=== PATIENT | female | born 1960 | race Caucasian/White ===

== ENCOUNTER 2022-04-04 08:07 | Inpatient (IN) ==
--- NOTE | 2022-04-04 08:46 | Emergency Department Note ---
Impression & Plan Acute hypoxemic respiratory failure, Pulmonary edema, Sepsis, Encephalopathy, Hypomagnesemia, Hypokalemia ED Provider Note NAME: CARLOS GALDAMEZ AGE: 61 SEX: F : 1960 ARRIVES VIA: Ambulance INFORMANT: Patient, EMS personnel ED PROVIDER(S): Eric Bear DO CHIEF COMPLAINT: Difficulty breathing HPI: The patient is a 61-year-old female who presented to the emergency department for an evaluation of difficulty breathing. The patient has no medical history but it appears that she does not see a provider. She is not seen a doctor in 30 years. History was significantly impaired secondary to the patient's difficulty breathing and respiratory distress. The patient denies having any chest pain. She does complain of lower extremity swelling and drainage from her legs. She has ulcerations all over her body. She was found to have a high blood sugar. She did receive a fluid bolus by the EMS personnel prior to arrival but this was stopped upon arrival to the emergency department. The patient states she has no medical history and takes no medications. The patient denies having any fever. She denies having any hemoptysis. She does complain of severe difficulty breathing especially with lying flat. ROS: See above HPI for pertinent positives & negatives. A total of 10 systems reviewed and were otherwise negative. PAST MEDICAL HISTORY: See Below PAST SURGICAL HISTORY: See Below FAMILY HISTORY: See Below SOCIAL HISTORY: See Below HOME MEDICATIONS: See Below ALLERGIES: See Below VITALS: See Below PHYSICAL EXAMINATION: GENERAL: The patient is awake and alert. She appears somewhat anxious. EYES: The conjunctivae are clear. The pupils are round and reactive. EARS, NOSE, MOUTH AND THROAT: The nose is without any evidence of any deformity. NECK: The neck is nontender and supple. RESPIRATORY: Diminished breath sounds are noted throughout. There were rales noted in all lung ley. CARDIOVASCULAR: Tachycardic and regular heart sounds were noted auscultation. There is no definite murmur. GASTROINTESTINAL: The abdomen was distended. There is no guarding rigidity. MUSCULOSKELETAL/EXTREMITIES: There is no evidence of gross deformity full range of motion is noted in the hips and shoulders. SKIN: Pedal edema was noted bilaterally. There is skin breakdown noted on the lower extremities as well as on the right breast. This appears to be around the nipple. No definite mass could be palpated but the patient states she has not had a mammogram. NEUROLOGIC: Patient is awake alert and oriented x3. MEDICAL DECISION MAKING: The patient is a 61-year-old female who presented to the emergency department for an evaluation of difficulty breathing. The patient had altered mental status and difficulty breathing which had been ongoing and worsening. The patient does not have any medical problems however this is likely because she does not go to a physician. She does not take any chronic medications. The patient was found to be significantly hypoxic and having shortness of breath. She was placed on escalating amounts of supplemental oxygen until she required BiPAP. She started to have hypotension. White blood cell count was elevated and chest x-ray was consistent with pulmonary edema but an infectious process could look similar so the patient was covered with IV antibiotics. She was reevaluated multiple times. I discussed her condition with the on-call [facility] hospitalist. A central line was placed. We were preparing to intubate the patient however she started to improve with her status after Lozano catheter was placed. The patient was felt to be a good candidate for inpatient management. She was also evaluated by the salesperson flying squad while she was in the emergency department. She has multiple areas of ulcerations of her lower extremities. It is unclear if these are from trauma or just from sedentary situation. She also has an ulceration under her right breast. This is consistent with pressure ulceration however it could be consistent with some underlying pathology. This was discussed with the admitting team as well. Triage Nursing notes reviewed. Prior medical records reviewed Vital Signs: reviewed and remarkable for hypotension. Tachycardia. Differential diagnosis: Reactive airway disease, pneumonia, pneumothorax, COPD, CHF, infections, cardiac ischemia, pulmonary embolism, musculoskeletal, gastrointestinal, as well as other pathologies. ER treatment provided: See below Diagnostics interpreted by me: ECG: EKG was obtained in the emergency department. My interpretation is sinus tachycardia 120 bpm. There were no PVCs noted. Poor R wave progression was noted. No previous tracing was available. Cardiac Monitoring: An order was placed for continuous cardiac monitoring. The monitor shows a rate of 94 bpm with sinus tachycardia. Laboratory studies: As stated above and show below. Imaging studies: See below Consultation(s): I discussed this case with Dr. Matute The patient was evaluated in room A1 by Dr. Gaytan ED COURSE: Procedures: Central Venous Catheter Indication: Pulmonary edema Catheter type: Triple-lumen Location: Left internal jugular Verbal consent was obtained after the risks and benefits were explained, including but not limited to pneumothorax, hemothorax, vessel injury, bleeding, scarring, infection, pain, and bone/joint/nerve damage. At this time, the risks of the procedure are less than the risks of NOT performing the procedure. A time out was taken and the correct patient and site identified. The patient was placed in the supine position and the skin was prepped in the standard fashion with chlorhexidine and full sterile drapes applied. The proper landmarks were identified with ultrasound, anesthetized with 1% lidocaine without epinephrine, and the needle was inserted through the skin in the standard fashion. The needle was carefully advanced into blood vessel lumen under ultrasound guidance. The guidewire was placed uneventfully. The vessel is dilated and the catheter was placed. It was sutured into position. There was good blood return from all ports. The patient tolerated the procedure well and there were no complications. Post procedure x-ray was normal. Critical Care: I have personally spent greater than 55 minutes of critical care time in the direct management of this patient. This includes bedside care, interpretation of diagnostic studies, and testing, discussion with consultants, patient, and family members, and other required patient management activities. This 55 minutes is in excess of all separately billable procedures. Past Med/Surg History Social History Smoking Status: Never smoker Allergies Allergies Allergy/AdvReac Type Severity Reaction Status Date / Time No Known Allergies Allergy Unverified 04/04/22 09:54 Home Meds Home Medications Medication Instructions Recorded Confirmed No Known Home Medications 04/04/22 04/04/22 Results & Data (ED) Vital Signs Vital Signs - 24 hr 04/04/22 08:27 04/04/22 09:06 04/04/22 08:22 Temperature 37.4 C Temperature Source Oral Pulse Rate 119 H 111 H 119 H Pulse Rate from SpO2 Sensor 120 H Respiratory Rate 24 33 H 33 H Respiratory Effort / Characteristics Non-Labored Spontaneous Spontaneous Labored Respiratory Depth Normal Respiratory Pattern Regular Tachypnea Blood Pressure 152/93 H Blood Pressure Mean 112 Pulse Oximetry 84 L 95 94 Oxygen Delivery Method Room Air Fraction of Inspired Oxygen 30 Sepsis Recent Fever Within 48 Hours No Sepsis New/Unexplained Change in Mental Status N/A Sepsis Action Taken by Nursing Physician Notified 04/04/22 08:24 04/04/22 08:24 04/04/22 08:30 Temperature Temperature Source Pulse Rate 120 H 119 H Pulse Rate from SpO2 Sensor 119 H 119 H Respiratory Rate 36 H 29 H Respiratory Effort / Characteristics Respiratory Depth Respiratory Pattern Blood Pressure 152/93 H Blood Pressure Mean 112 Pulse Oximetry 94 94 Oxygen Delivery Method Fraction of Inspired Oxygen Sepsis Recent Fever Within 48 Hours Sepsis New/Unexplained Change in Mental Status Sepsis Action Taken by Nursing 04/04/22 09:00 04/04/22 09:30 04/04/22 09:45 Temperature Temperature Source Pulse Rate 113 H 102 H 100 H Pulse Rate from SpO2 Sensor 112 H 102 H 99 H Respiratory Rate 31 H 30 H 29 H Respiratory Effort / Characteristics Respiratory Depth Respiratory Pattern Blood Pressure 89/49 L Blood Pressure Mean 62 Pulse Oximetry 91 96 96 Oxygen Delivery Method BiPAP Fraction of Inspired Oxygen Sepsis Recent Fever Within 48 Hours Sepsis New/Unexplained Change in Mental Status Sepsis Action Taken by Nursing 04/04/22 10:00 04/04/22 10:03 04/04/22 10:03 Temperature Temperature Source Pulse Rate 97 H 96 H Pulse Rate from SpO2 Sensor 93 H 62 Respiratory Rate 25 H 33 H Respiratory Effort / Characteristics Respiratory Depth Respiratory Pattern Blood Pressure Blood Pressure Mean 53 Pulse Oximetry 94 96 Oxygen Delivery Method BiPAP BiPAP Fraction of Inspired Oxygen Sepsis Recent Fever Within 48 Hours Sepsis New/Unexplained Change in Mental Status Sepsis Action Taken by Nursing 04/04/22 10:06 04/04/22 10:06 04/04/22 10:10 Temperature Temperature Source Pulse Rate 98 H 99 H Pulse Rate from SpO2 Sensor 95 H 99 H Respiratory Rate 32 H 19 Respiratory Effort / Characteristics Respiratory Depth Respiratory Pattern Blood Pressure 87/53 L Blood Pressure Mean 64 Pulse Oximetry 95 95 Oxygen Delivery Method Fraction of Inspired Oxygen Sepsis Recent Fever Within 48 Hours Sepsis New/Unexplained Change in Mental Status Sepsis Action Taken by Nursing 04/04/22 10:10 04/04/22 10:15 04/04/22 10:15 Temperature Temperature Source Pulse Rate 96 H Pulse Rate from SpO2 Sensor 96 H Respiratory Rate 28 H Respiratory Effort / Characteristics Respiratory Depth Respiratory Pattern Blood Pressure 81/49 L 85/53 L Blood Pressure Mean 59 63 Pulse Oximetry 96 Oxygen Delivery Method BiPAP Fraction of Inspired Oxygen Sepsis Recent Fever Within 48 Hours Sepsis New/Unexplained Change in Mental Status Sepsis Action Taken by Nursing 04/04/22 10:30 04/04/22 10:31 04/04/22 10:32 Temperature Temperature Source Pulse Rate 90 99 H Pulse Rate from SpO2 Sensor 83 97 H Respiratory Rate 21 23 Respiratory Effort / Characteristics Respiratory Depth Respiratory Pattern Blood Pressure 83/55 L Blood Pressure Mean 64 Pulse Oximetry 94 96 Oxygen Delivery Method BiPAP Fraction of Inspired Oxygen Sepsis Recent Fever Within 48 Hours Sepsis New/Unexplained Change in Mental Status Sepsis Action Taken by Nursing 04/04/22 10:45 04/04/22 10:53 04/04/22 10:53 Temperature Temperature Source Pulse Rate 94 H 97 H Pulse Rate from SpO2 Sensor 94 H 90 Respiratory Rate 15 Respiratory Effort / Characteristics Respiratory Depth Respiratory Pattern Blood Pressure 96/54 L Blood Pressure Mean 68 Pulse Oximetry 94 97 Oxygen Delivery Method Fraction of Inspired Oxygen Sepsis Recent Fever Within 48 Hours Sepsis New/Unexplained Change in Mental Status Sepsis Action Taken by Nursing 04/04/22 11:00 04/04/22 11:02 04/04/22 11:02 Temperature Temperature Source Pulse Rate 100 H 99 H Pulse Rate from SpO2 Sensor 100 H 84 Respiratory Rate 26 H 23 Respiratory Effort / Characteristics Respiratory Depth Respiratory Pattern Blood Pressure 105/66 Blood Pressure Mean 79 Pulse Oximetry 98 100 Oxygen Delivery Method Fraction of Inspired Oxygen Sepsis Recent Fever Within 48 Hours Sepsis New/Unexplained Change in Mental Status Sepsis Action Taken by [facility] Medications Current Medication List: was personally reviewed by me Laboratory Data Attestation: I reviewed the patient's lab results. Result diagrams: 04/04/22 08:32 04/04/22 08:32 Lab Results 04/04/22 04/04/22 04/04/22 Range/Units 08:32 08:32 08:32 WBC 23.61 H (4.8-10.8) K/ul RBC 3.84 L (3.93-5.22) M/uL Hgb 12.2 (12.0-16.0) g/dl Hct 33.6 L (34.1-44.9) % MCV 87.5 (80.0-100.0) fL MCH 31.8 (25.0-34.0) pg MCHC 36.3 H (32.0-36.0) g/dL RDW Std Deviation 40.7 (36.4-46.3) fL RDW Coeff of Chintan 12.8 (11.5-14.5) % Plt Count 316 (130-400) K/uL MPV 9.4 (9.4-12.3) fL Immature Gran % (Auto) 1.0 % Neut % (Auto) 94.5 % Lymph % (Auto) 2.5 % [place] % (Auto) 1.5 % Eos % (Auto) 0.1 % Baso % (Auto) 0.4 % Neut # (Auto) 22.30 H (1.4-6.5) K/uL Lymph # (Auto) 0.60 L (1.2-3.4) K/uL [place] # (Auto) 0.35 (0.24-0.82) K/uL Eos # (Auto) 0.03 (0-0.50) K/uL Baso # (Auto) 0.09 (0-0.2) K/uL Immature Gran # (Auto) 0.24 H (0.00-0.02) K/uL PT 12.2 H (9.0-12.0) Seconds INR 1.2 H (0.9-1.1) APTT 25.9 (21.0-31.0) Seconds PTT Ratio 0.9 VBG pH (7.36-7.41) VBG pCO2 (38-50) mmHg VBG pO2 mmHg VBG HCO3 mmol/L VBG O2 Saturation % VBG Base Excess mEq/L Sodium 134 L (136-145) mmol/L Potassium 2.7 L (3.5-5.1) mmol/L Chloride 95 L (98-107) mmol/L Carbon Dioxide 29 (21-32) mmol/L Anion Gap 10 (3-11) BUN 7 (6-23) mg/dl Creatinine 0.51 L (0.6-1.2) mg/dl Est Cr Clr Drug Dosing 157.3 ml/min Est GFR ( Amer) 120.3 ml/min Est GFR (Non-Af Amer) 103.8 ml/min BUN/Creatinine Ratio 13.7 (10-20) Glucose 242 H (70-99(Fasting)) mg/dl Lactate (0.4-2.0) mmol/L Calcium 8.0 L (8.5-10.1) mg/dl Magnesium 1.6 L (1.7-2.4) mg/dl Total Bilirubin 0.7 (0.2-1.0) mg/dl Direct Bilirubin 0.2 (0-0.2) mg/dl AST 19 (13-39) U/L ALT 13 (7-52) U/L Alkaline Phosphatase 164 H (34-104) U/L Total Creatine Kinase (26-192) U/L Troponin I High Sens 32.0 H (0-14) pg/ml B-Natriuretic Peptide (0-100) pg/ml Total Protein 7.0 (6.0-8.3) gm/dl Albumin 2.7 L (3.4-5.0) gm/dl Lipase (11-82) U/L Procalcitonin (0-0.5) ng/ml Urine Color Urine Appearance (Clear) Urine pH (4.5-7.5) Ur Specific [place] (1.000-1.030) Urine Protein (Negative) Urine Glucose (UA) (Negative) Urine Ketones (Negative) Urine Blood (Negative) Urine Nitrite (Negative) Urine Bilirubin (Negative) Urine Urobilinogen (Negative) Ur Leukocyte Esterase (Negative) Urine WBC (Auto) (0-5) /hpf Urine RBC (Auto) (0-4) /hpf U Hyaline Cast (Auto) (0-5) /lpf U Epithel Cells (Auto) (0-5) /lpf Urine Bacteria (Auto) (Negative) SARS-CoV-2 (PCR) (Negative) Influenza Type A (PCR) (Neg) Influenza Type B (PCR) (Neg) RSV (RT-PCR) (Neg) Blood Type Antibody Screen 04/04/22 04/04/22 04/04/22 Range/Units 08:32 08:32 08:32 WBC (4.8-10.8) K/ul RBC (3.93-5.22) M/uL Hgb (12.0-16.0) g/dl Hct (34.1-44.9) % MCV (80.0-100.0) fL MCH (25.0-34.0) pg MCHC (32.0-36.0) g/dL RDW Std Deviation (36.4-46.3) fL RDW Coeff of Chintan (11.5-14.5) % Plt Count (130-400) K/uL MPV (9.4-12.3) fL Immature Gran % (Auto) % Neut % (Auto) % Lymph % (Auto) % [place] % (Auto) % Eos % (Auto) % Baso % (Auto) % Neut # (Auto) (1.4-6.5) K/uL Lymph # (Auto) (1.2-3.4) K/uL [place] # (Auto) (0.24-0.82) K/uL Eos # (Auto) (0-0.50) K/uL Baso # (Auto) (0-0.2) K/uL Immature Gran # (Auto) (0.00-0.02) K/uL PT (9.0-12.0) Seconds INR (0.9-1.1) APTT (21.0-31.0) Seconds PTT Ratio VBG pH 7.48 H (7.36-7.41) VBG pCO2 42 (38-50) mmHg VBG pO2 39 mmHg VBG HCO3 31 mmol/L VBG O2 Saturation 69.3 % VBG Base Excess 7.0 mEq/L Sodium (136-145) mmol/L Potassium (3.5-5.1) mmol/L Chloride (98-107) mmol/L Carbon Dioxide (21-32) mmol/L Anion Gap (3-11) BUN (6-23) mg/dl Creatinine (0.6-1.2) mg/dl Est Cr Clr Drug Dosing ml/min Est GFR ( Amer) ml/min Est GFR (Non-Af Amer) ml/min BUN/Creatinine Ratio (10-20) Glucose (70-99(Fasting)) mg/dl Lactate 1.6 (0.4-2.0) mmol/L Calcium (8.5-10.1) mg/dl Magnesium (1.7-2.4) mg/dl Total Bilirubin (0.2-1.0) mg/dl Direct Bilirubin (0-0.2) mg/dl AST (13-39) U/L ALT (7-52) U/L Alkaline Phosphatase (34-104) U/L Total Creatine Kinase (26-192) U/L Troponin I High Sens (0-14) pg/ml B-Natriuretic Peptide (0-100) pg/ml Total Protein (6.0-8.3) gm/dl Albumin (3.4-5.0) gm/dl Lipase (11-82) U/L Procalcitonin 1.87 H (0-0.5) ng/ml Urine Color Urine Appearance (Clear) Urine pH (4.5-7.5) Ur Specific [place] (1.000-1.030) Urine Protein (Negative) Urine Glucose (UA) (Negative) Urine Ketones (Negative) Urine Blood (Negative) Urine Nitrite (Negative) Urine Bilirubin (Negative) Urine Urobilinogen (Negative) Ur Leukocyte Esterase (Negative) Urine WBC (Auto) (0-5) /hpf Urine RBC (Auto) (0-4) /hpf U Hyaline Cast (Auto) (0-5) /lpf U Epithel Cells (Auto) (0-5) /lpf Urine Bacteria (Auto) (Negative) SARS-CoV-2 (PCR) (Negative) Influenza Type A (PCR) (Neg) Influenza Type B (PCR) (Neg) RSV (RT-PCR) (Neg) Blood Type Antibody Screen 04/04/22 04/04/22 04/04/22 Range/Units 08:32 08:32 08:33 WBC (4.8-10.8) K/ul RBC (3.93-5.22) M/uL Hgb (12.0-16.0) g/dl Hct (34.1-44.9) % MCV (80.0-100.0) fL MCH (25.0-34.0) pg MCHC (32.0-36.0) g/dL RDW Std Deviation (36.4-46.3) fL RDW Coeff of Chintan (11.5-14.5) % Plt Count (130-400) K/uL MPV (9.4-12.3) fL Immature Gran % (Auto) % Neut % (Auto) % Lymph % (Auto) % [place] % (Auto) % Eos % (Auto) % Baso % (Auto) % Neut # (Auto) (1.4-6.5) K/uL Lymph # (Auto) (1.2-3.4) K/uL [place] # (Auto) (0.24-0.82) K/uL Eos # (Auto) (0-0.50) K/uL Baso # (Auto) (0-0.2) K/uL Immature Gran # (Auto) (0.00-0.02) K/uL PT (9.0-12.0) Seconds INR (0.9-1.1) APTT (21.0-31.0) Seconds PTT Ratio VBG pH (7.36-7.41) VBG pCO2 (38-50) mmHg VBG pO2 mmHg VBG HCO3 mmol/L VBG O2 Saturation % VBG Base Excess mEq/L Sodium (136-145) mmol/L Potassium (3.5-5.1) mmol/L Chloride (98-107) mmol/L Carbon Dioxide (21-32) mmol/L Anion Gap (3-11) BUN (6-23) mg/dl Creatinine (0.6-1.2) mg/dl Est Cr Clr Drug Dosing ml/min Est GFR ( Amer) ml/min Est GFR (Non-Af Amer) ml/min BUN/Creatinine Ratio (10-20) Glucose (70-99(Fasting)) mg/dl Lactate (0.4-2.0) mmol/L Calcium (8.5-10.1) mg/dl Magnesium (1.7-2.4) mg/dl Total Bilirubin (0.2-1.0) mg/dl Direct Bilirubin (0-0.2) mg/dl AST (13-39) U/L ALT (7-52) U/L Alkaline Phosphatase (34-104) U/L Total Creatine Kinase 61 (26-192) U/L Troponin I High Sens (0-14) pg/ml B-Natriuretic Peptide (0-100) pg/ml Total Protein (6.0-8.3) gm/dl Albumin (3.4-5.0) gm/dl Lipase (11-82) U/L Procalcitonin (0-0.5) ng/ml Urine Color Urine Appearance (Clear) Urine pH (4.5-7.5) Ur Specific [place] (1.000-1.030) Urine Protein (Negative) Urine Glucose (UA) (Negative) Urine Ketones (Negative) Urine Blood (Negative) Urine Nitrite (Negative) Urine Bilirubin (Negative) Urine Urobilinogen (Negative) Ur Leukocyte Esterase (Negative) Urine WBC (Auto) (0-5) /hpf Urine RBC (Auto) (0-4) /hpf U Hyaline Cast (Auto) (0-5) /lpf U Epithel Cells (Auto) (0-5) /lpf Urine Bacteria (Auto) (Negative) SARS-CoV-2 (PCR) NEGATIVE (Negative) Influenza Type A (PCR) Negative (Neg) Influenza Type B (PCR) Negative (Neg) RSV (RT-PCR) Negative (Neg) Blood Type O Positive Antibody Screen NEGATIVE 04/04/22 04/04/22 04/04/22 Range/Units 08:57 09:32 10:17 WBC (4.8-10.8) K/ul RBC (3.93-5.22) M/uL Hgb (12.0-16.0) g/dl Hct (34.1-44.9) % MCV (80.0-100.0) fL MCH (25.0-34.0) pg MCHC (32.0-36.0) g/dL RDW Std Deviation (36.4-46.3) fL RDW Coeff of Chintan (11.5-14.5) % Plt Count (130-400) K/uL MPV (9.4-12.3) fL Immature Gran % (Auto) % Neut % (Auto) % Lymph % (Auto) % [place] % (Auto) % Eos % (Auto) % Baso % (Auto) % Neut # (Auto) (1.4-6.5) K/uL Lymph # (Auto) (1.2-3.4) K/uL [place] # (Auto) (0.24-0.82) K/uL Eos # (Auto) (0-0.50) K/uL Baso # (Auto) (0-0.2) K/uL Immature Gran # (Auto) (0.00-0.02) K/uL PT (9.0-12.0) Seconds INR (0.9-1.1) APTT (21.0-31.0) Seconds PTT Ratio VBG pH (7.36-7.41) VBG pCO2 (38-50) mmHg VBG pO2 mmHg VBG HCO3 mmol/L VBG O2 Saturation % VBG Base Excess mEq/L Sodium (136-145) mmol/L Potassium (3.5-5.1) mmol/L Chloride (98-107) mmol/L Carbon Dioxide (21-32) mmol/L Anion Gap (3-11) BUN (6-23) mg/dl Creatinine (0.6-1.2) mg/dl Est Cr Clr Drug Dosing ml/min Est GFR ( Amer) ml/min Est GFR (Non-Af Amer) ml/min BUN/Creatinine Ratio (10-20) Glucose (70-99(Fasting)) mg/dl Lactate (0.4-2.0) mmol/L Calcium (8.5-10.1) mg/dl Magnesium (1.7-2.4) mg/dl Total Bilirubin (0.2-1.0) mg/dl Direct Bilirubin (0-0.2) mg/dl AST (13-39) U/L ALT (7-52) U/L Alkaline Phosphatase (34-104) U/L Total Creatine Kinase (26-192) U/L Troponin I High Sens (0-14) pg/ml B-Natriuretic Peptide 766 H (0-100) pg/ml Total Protein (6.0-8.3) gm/dl Albumin (3.4-5.0) gm/dl Lipase 5 L (11-82) U/L Procalcitonin (0-0.5) ng/ml Urine Color Yellow Urine Appearance Clear (Clear) Urine pH 5.5 (4.5-7.5) Ur Specific [place] 1.012 (1.000-1.030) Urine Protein Trace H (Negative) Urine Glucose (UA) Negative (Negative) Urine Ketones Trace H (Negative) Urine Blood Negative (Negative) Urine Nitrite Negative (Negative) Urine Bilirubin Negative (Negative) Urine Urobilinogen Negative (Negative) Ur Leukocyte Esterase Negative (Negative) Urine WBC (Auto) 1-5 (0-5) /hpf Urine RBC (Auto) 0-4 (0-4) /hpf U Hyaline Cast (Auto) 1-5 (0-5) /lpf U Epithel Cells (Auto) 20-30 H (0-5) /lpf Urine Bacteria (Auto) Negative (Negative) SARS-CoV-2 (PCR) (Negative) Influenza Type A (PCR) (Neg) Influenza Type B (PCR) (Neg) RSV (RT-PCR) (Neg) Blood Type Antibody Screen Administered Medications Discontinued Medications Piperacillin Sod/Tazobactam Sod (Zosyn) 4.5 gm in 120 mls @ 240 mls/hr IV NOW ONE Stop: 04/04/22 09:35 Last Infusion: 04/04/22 11:33 Dose: 0 mls/hr Documented By: Admin: 04/04/22 09:58 Dose: 240 mls/hr Documented By: ED Magnesium Sulfate/Dextrose (Magnesium Sulfate / D5w) 1 gm in 100 mls @ 100 mls/hr IV NOW STA Stop: 04/04/22 10:34 Last Infusion: 04/04/22 11:33 Dose: 0 mls/hr Documented By: Infusion: 04/04/22 11:32 Dose: 0 mls/hr Documented By: Admin: 04/04/22 09:58 Dose: 100 mls/hr Documented By: ED Potassium Chloride (K Terry / Wtr) 10 meq in 100 mls @ 100 mls/hr IV Q1H ERAN; Protocol Stop: 04/04/22 11:44 Last Admin: 04/04/22 11:38 Dose: 100 mls/hr Documented By: Infusion: 04/04/22 11:33 Dose: 0 mls/hr Documented By: Admin: 04/04/22 10:12 Dose: 100 mls/hr Documented By: ED Vancomycin HCl 2,750 mg/ (Sodium Chloride) 555 mls @ 200 mls/hr IV NOW ONE Stop: 04/04/22 14:02 Last Admin: 04/04/22 11:34 Dose: 200 mls/hr Documented By: KT Sodium Chloride (Nss) 500 mls @ 999 mls/hr IV .Q31M ONE Stop: 04/04/22 11:52 Last Infusion: 04/04/22 12:10 Dose: 0 mls/hr Documented By: Admin: 04/04/22 11:34 Dose: 999 mls/hr Documented By: KT Ioversol (Optiray 320 500ml) 109 ml IV ONCE ONE Stop: 04/04/22 12:37 Last Admin: 04/04/22 12:37 Dose: 109 ml Documented By: EDK Imaging Data Radiologist's Impression: Chest X-Ray 04/04/22 08:21 XR chest 1V portable CLINICAL HISTORY: Sepsis. COMPARISON STUDY: No previous studies for comparison. FINDINGS: Lung volumes are mildly diminished. No pneumothorax or pleural effusion is identified. Diffuse interstitial thickening is noted. Several bilateral airspace opacities are predominantly linear in configuration. Note is made of cardiomegaly. Right hilar prominence is present. IMPRESSION: 1. Diffuse interstitial thickening. This favors pulmonary edema however an infectious process could appear similar. Radiographic follow-up is recommended. 2. Cardiomegaly. Right hilar enlargement. This may be due to dilated pulmonary vessels however can be assessed on follow-up radiographs to exclude other mimi ologies such as lymphadenopathy. ACT 112: Negative or not required by law. Electronically signed by: Cruz Berman M.D. 04/04/2022 8:49 AM Abdomen/Pelvis CT 04/04/22 10:27 CT OF THE ABDOMEN AND PELVIS WITH CONTRAST CLINICAL HISTORY: Sepsis. COMPARISON STUDY: None. TECHNIQUE: Following IV administration of Optiray, axial images of the abdomen and pelvis were obtained from the lung bases to the proximal femurs. Images were reviewed in the axial, sagittal, and coronal planes. IV contrast was administered without complication. Automated exposure control was utilized for the study. A dose lowering technique was utilized adhering to the principles of ALARA. FINDINGS: Please note that the chest CT will be reported separately. No pneumatosis, free air or portal venous gas is present. This study is moderately compromised by motion artifact as well as artifact from body wall contacting the gantry. Trace perihepatic ascites is noted. There is anasarca. No fluid collection is identified within the abdomen or pelvis to suggest an abscess. The re is suspected nodularity of the liver surface. Liver is enlarged. No hepatic lesions are identified on this exam. There is no biliary or pancreatic ductal dilatation. Spleen, adrenal glands, kidneys and pancreas are grossly unremarkable. There is no hydronephrosis. There is a Lozano balloon within the bladder which is collapsed. Oral contrast within the colon and rectum may be from a previous imaging study. Moderate vascular calcification is present. Caliber of the abdominal aorta is normal. There are multiple calcified nonenlarged lymph nodes within the abdomen and pelvis. These are indeterminate. Left buttock subcutaneous fluid is partially imaged on this examination. No fluid collection is identified within visualized portions of the imaged pelvis. IMPRESSION: 1. Exam moderately compromised by artifact. 2. No bowel obstruction. No bowel wall thickening. 3. Anasarca. Trace ascites. No fluid collection to suggest abscess. 4. Hepatomegaly. Suspected nodularity of the liver surface raises the possibility of cirrhosis. 5. Cardiomegaly. Small right and trace left pleural effusion with probable pulmo nary edema. A superimposed infectious process cannot be excluded within the lungs. ACT 112: Negative or not required by law. Electronically signed by: Cruz Berman M.D. 04/04/2022 1:07 PM Chest CTA 04/04/22 10:27 CT ANGIOGRAPHY OF THE CHEST, PULMONARY EMBOLUS PROTOCOL CLINICAL HISTORY: Confusion. Possible sepsis. Evaluate for pulmonary embolus. COMPARISON STUDY: Chest radiograph performed earlier today. TECHNIQUE: Following IV administration of Optiray, helical axial images of the chest were obtained utilizing the pulmonary embolus protocol. Maximal intensity projections and sagittal and coronal reformats were viewed on an independent 3D workstation. IV contrast was administered without complication. Automated exposure control was utilized for the study. A dose lowering technique was utilized adhering to the principles of ALARA. FINDINGS: Left internal jugular central line is in place. Moderate cardiomegaly is noted. There is no thoracic aortic dissection. No pericardial effusion is present. No central or lobar pulmonary emboli are identified. This exam is significantly compromised by respiratory motion artifact. This compromises visualization of the segmental and subsegmental pulmonary arteries. Small right and trace left pleural effusions are present. There is no pneumothorax. Multifocal airspace opacities throughout the lungs are noted. The majority of these appear to represent atelectasis. However, an infectious process cannot be excluded. There may be mild pulmonary edema. No acute fracture within the bony thorax is noted although sensitivity for detection of nondisplaced fractures is diminished. The abdomen and pelvis CT will be reported separately. There is anasarca. Prominent mediastinal and bilateral hilar lymph nodes are present. IMPRESSION: 1. Exam significantly compromised by motion artifact. No pulmonary emboli identified although segmental and subsegmental pulmonary arteries suboptimally assessed. 2. Moderate cardiomegaly. Small right and trace left pleural effusions. Suspected pulmonary edema. 3. Multifocal airspace opacities throughout the lungs. The majority of these likely reflect atelectasis. However, multifocal pneumonia cannot be excluded. ACT 112: Negative or not required by law. Electronically signed by: Cruz Berman M.D. 04/04/2022 12:[address] 04/04/22 10:27 CT OF THE HEAD WITHOUT CONTRAST CLINICAL HISTORY: Altered mental status. COMPARISON STUDY: No previous studies for comparison. TECHNIQUE: Helical axial images of the head were obtained without IV contrast. A utomated exposure control was utilized for the study. A dose lowering technique was utilized adhering to the principles of ALARA. FINDINGS: This study is mildly compromised by motion artifact. No acute intracranial hemorrhage, midline shift or mass effect is present. The ventricular system is unremarkable. The basal cisterns are patent. No extra- axial collections are present. There are no findings to suggest acute dural sinus thrombosis or acute territorial infarct. No significant calvarial abnormalities are present. Visualized portions of the sinuses and mastoid air cells are clear. IMPRESSION: Exam moderately compromised by motion artifact. No acute intracranial findings. ACT 112: Negative or not required by law. Electronically signed by: Cruz Berman M.D. 04/04/2022 12:49 PM Discharge Plan Visit Data Chief Complaint: Infection ED Provider: Eric Bear Discharge Problem: Acute hypoxemic respiratory failure, Pulmonary edema, Sepsis, Encephalopathy, Hypomagnesemia, Hypokalemia Patient Disposition: Admitted As Inpatient Discharge Instructions Interventions: ED Discharge Assessment Last Done: 04/04/22 13:30
--- NOTE | 2022-04-04 08:50 | XRay Report ---
XR chest 1V portable CLINICAL HISTORY: Sepsis. COMPARISON STUDY: No previous studies for comparison. FINDINGS: Lung volumes are mildly diminished. No pneumothorax or pleural effusion is identified. Diff use interstitial thickening is noted. Several bilateral airspace opacities are predominantly linear i n configuration. Note is made of cardiomegaly. Right hilar prominence is present. IMPRESSION: 1. Diffuse interstitial thickening. This favors pulmonary edema however an infectious process could a ppear similar. Radiographic follow-up is recommended. 2. Cardiomegaly. Right hilar enlargement. This may be due to dilated pulmonary vessels however can be assessed on follow-up radiographs to exclude other etiologies such as lymphadenopathy. ACT 112: Negative or not required by law. Electronically signed by: Cruz Berman M.D. 04/04/2022 8:49 AM
[2022-04-04 09:03] LABS: Hematocrit (blood only) 33.6 % (34.1-44.9); Hemoglobin 12.2 g/dl (12.0-16.0); Mean Corpuscular Hemoglobin 31.8 pg (25.0-34.0); Mean Corpuscular Hgb Conc 36.3 g/dL (32.0-36.0); Mean Corpuscular Volume 87.5 fL (80.0-100.0); Mean Platelet Volume 9.4 fL (9.4-12.3); Platelet Count 316 K/uL (130-400); RDW Coefficient of Variation 12.8 % (11.5-14.5); RDW Standard Deviation 40.7 fL (36.4-46.3); Red Blood Count 3.84 M/uL (3.93-5.22); White Blood Count 23.61 K/ul (4.8-10.8)
[2022-04-04] MEDS ORDERED: PIPERACILLIN/TAZOBACTAM 4.5 GM/120 ML BAG IV ONE (09:06)
[2022-04-04 09:15] LABS: HCO3 VBG 31 mmol/L; Oxygen Saturation VBG 69.3 %; PCO2 VBG 42 mmHg (38-50); PO2 VBG 39 mmHg; pH VBG 7.48 (7.36-7.41)
[2022-04-04 09:17] LABS: INR 1.2 (0.9-1.1); Partial Thromboplastin Ratio 0.9; Partial Thromboplastin Time 25.9 Seconds (21.0-31.0); Prothrombin Time 12.2 Seconds (9.0-12.0)
[2022-04-04 09:18] LABS: Influenza A virus by PCR Negative (Neg); Influenza B virus by PCR Negative (Neg); RSV by PCR Negative (Neg); SARS CoV2 RNA(COVID-19)Cepheid NEGATIVE (Negative)
[2022-04-04 09:31] LABS: Albumin Level 2.7 gm/dl (3.4-5.0); BUN Creatinine Ratio 13.7 (10-20); Bilirubin Direct 0.2 mg/dl (0-0.2); Bilirubin,Total 0.7 mg/dl (0.2-1.0); Creatinine Clr Calc Pharmacy 157.3 ml/min; Est GFR (African American) 120.3 ml/min; Est GFR (Non-African American) 103.8 ml/min; Magnesium 1.6 mg/dl (1.7-2.4); Potassium 2.7 mmol/L (3.5-5.1)
[2022-04-04] MEDS ORDERED: MAGNESIUM SULFATE / D5W 1 GM/100 ML BAG IV STA (09:35)
[2022-04-04 09:44] LABS: Basophils # (auto) 0.09 K/uL (0-0.2); Basophils % (auto) 0.4 %; Eosinophils # (auto) 0.03 K/uL (0-0.50); Eosinophils % (auto) 0.1 %; Immature Granulocytes # (auto) 0.24 K/uL (0.00-0.02); Lymphocytes % (auto) 2.5 %; Monocytes # (auto) 0.35 K/uL (0.24-0.82); Monocytes % (auto) 1.5 %; Neutrophils % (auto) 94.5 %
[2022-04-04] MEDS: POTASSIUM CHLORIDE / WTR 10 MEQ/100 ML PLCT IV SCH ×2 (10:12→11:38)
[2022-04-04 10:47] LABS: Appearance Urine Clear (Clear); Bacteria Urine Automated Negative (Negative); Bilirubin Urine Negative (Negative); Blood Urine Negative (Negative); Color Urine Yellow; Epithelial Cell Urine Auto 20-30 /lpf (0-5); Glucose Urine UA Negative (Negative); Ketones Urine Trace (Negative); Leukocyte Esterase Urine Negative (Negative); Nitrite Urine Negative (Negative); Protein Urine Trace (Negative); RBC Urine Automated 0-4 /hpf (0-4); Specific Gravity Urine 1.012 (1.000-1.030); Urobilinogen Urine Negative (Negative); pH Urine 5.5 (4.5-7.5)
--- NOTE | 2022-04-04 10:54 | History & Physical Report ---
Date of Service April 04, 2022 Assessment & Plan (1) Encephalopathy: Plan: Hypoxemic and obtunded 61 yo obese femmary ellen who has not received health care for over 30 years likely multifactorial. concern over sepsis, unknown source. 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 cultures obtained prior to antibiotics. Given lack of history and medical folllow-up complicates work up as she likely has multiple medical comorbidites that have not been diagnosed. Central line obtained as blood pressures have been low. check Hemoglobin A!C (2) Acute hypoxemic respiratory failure: Plan: will obtain an echocardiogram. May need to diurese. (3) Pulmonary edema: Plan: may require diuresing, however, may also be multifocal pneumonia. Given lable blood pressure, will currently hold diuretics. Obtain echocardiogram (4) Sepsis: Plan: unknown source as stated above. History of Present Illness Chief Complaint: SOB Primary Care Provider: NO PCP 61 yo female with no past medical history given tat she has not seen a doctor for the past 30 years. Patient does not take medications at home. Patient has a sedentary lifestyle. As patient is obtunded, she is a poor historian. Her spouse and daugther, are at bedside. They report that over the past 2 weeks, she has become more weak. Last week she fell from her chair and was unable to get back up. She refused to go to the ER. This monring, she was more confused, and having significant SOB at rest, this prompted her to call 911. Allergies Allergy/AdvReac Type Severity Reaction Status Date / Time No Known Allergies Allergy Unverified 04/04/22 09:54 Home Medications Medication Instructions Recorded Confirmed Type No Known Home Medications 04/04/22 04/04/22 History Past Med/Surg History Social History Smoking Status: Never smoker Second Hand Exposure: No; Hx Alcohol Use: No Hx Substance Use: No Preferred Language: Yoruba Communication Ability: Effective Supervisor Waterproofing Required: No Beliefs That Will Affect Care: None Current Living Situation: Spouse Feels Safe at Home: Yes Assistive Devices: Cane Review of Systems Review of Systems: Unobtainable due to cognitive status Physical Exam Constitutional: + ill appearing, + morbidly obese and + altered mental status Eyes: PERRL, conjunctivae normal, anicteric sclerae ENMT: external ear and nose normal, oropharynx normal Neck: trachea midline, no thyromegaly Respiratory: Auscultation: + diminished lung sounds and + crackles Cardiovascular: Rate/Rhythm: regular rhythm and + tachycardic Vessels: no JVD Chest (Breasts): Additional Comments: redness under her right breast. Gastrointestinal (Abdomen): normal bowel sounds, soft, nontender, no hepatosplenomegaly Skin: + lesion (large excoriation on left lower leg with surronding erythema) Psychiatric: A+Ox3, euthymic affect Results & Data Results & Data ([facility]) Vital Signs (Past 12 Hours) Vital Signs Temp Pulse Resp BP Pulse Ox O2 Del Method FiO2 04/04/22 10:31 83/55 L 04/04/22 10:30 90 21 94 BiPAP 04/04/22 10:15 96 H 28 H 96 BiPAP 04/04/22 10:15 85/53 L 04/04/22 10:10 81/49 L 04/04/22 10:10 99 H 19 95 04/04/22 10:06 98 H 32 H 95 04/04/22 10:06 87/53 L 04/04/22 10:03 96 H 33 H 96 BiPAP 04/04/22 10:00 97 H 25 H 94 BiPAP 04/04/22 09:45 100 H 29 H 96 BiPAP 04/04/22 09:30 102 H 30 H 89/49 L 96 04/04/22 09:00 113 H 31 H 91 04/04/22 08:30 119 H 29 H 94 04/04/22 08:24 152/93 H 04/04/22 08:24 120 H 36 H 94 04/04/22 08:22 119 H 33 H 94 04/04/22 09:06 111 H 33 H 95 30 04/04/22 08:27 37.4 C 119 H 24 152/93 H 84 L Room Air Critical Care Time Critical Care Time: Yes Total Critical Care Time: 32 PG Care Time/CCT Total # of Minutes Spent Total Time Spent with Patient: Total time spent is greater than 50% in coordination of care (as documented) at patient's floor/unit and/or counseling patient: Critical Care Time: Yes Total Critical Care Time: 32 32 minutes in critical care time was spent in evaluation management coordinating care for this patient. Coding Level of Care Code 85190 Initial Inpt Care Lvl 3 (25 - SIGNIFICANT, SEPARATELY IDENTIFIABLE ) Diagnoses Encephalopathy G93.40 Acute hypoxemic respiratory failure J96.01 Pulmonary edema J81.1 Sepsis A41.9 Additional Codes Critical Care Time - Critical Care Time: Yes ([id number])
[2022-04-04] MEDS ORDERED: ICU Protocol for HYPERglycemia PRN ×2 (11:02→11:24)
[2022-04-04] MEDS ORDERED: VANCOMYCIN CONSULT ACTIVE PRN (11:16)
[2022-04-04] MEDS ORDERED: VANCOMYCIN HCL 2,750 MG in SODIUM CHLORIDE 0.9% 500 ML IV ONE (11:16)
[2022-04-04] MEDS ORDERED: SODIUM CHLORIDE 0.9% 500 ML IV ONE (11:22)
--- NOTE | 2022-04-04 11:25 | Critical Care Consultation ---
Date of Consultation April 04, 2022 Assessment & Plan (1) Acute hypoxemic respiratory failure: (2) Pulmonary edema: (3) Sepsis: (4) Encephalopathy: Plan Impression: 61-year-old morbidly obese female without prior medical history presents with altered mental status and presumptive severe sepsis likely secondary to skin and soft tissue issues. She also has evidence of fluid overload with pulmonary edema. Recommendations: 1. Neurologic: Encephalopathy likely secondary to underlying metabolic issues. We will check ammonia level. Imaging of the BLADDER BLOWER has been ordered by the ER staff. 2. Cardiovascular: Presumed sepsis although lactate was normal which would make shock less likely. Check echocardiogram. Trend enzymes. We will hold diuresis for now given the low blood pressure initially noted in the emergency room. Troponin leak mildly elevated as well. Cardiology consultation may be appropriate depending on echocardiogram findings. Unclear what her acoustic windows look like given her morbid obesity and body habitus. 3. Respiratory: Hypoxemic respiratory failure with diffuse pulmonary infiltrates. Suspect pulmonary edema given elevated BNP. We will hold on diuresis for now. Continue supplemental oxygen titrated to keep saturations at or above 88%. Can use CPAP if needed. No indication of hypercarbia so does not warrant BiPAP. If unable to get imaging studies or patient's mental status deteriorates, may require intubation mechanical ventilation to facilitate work- up. 4. ID: Sepsis with elevated white blood cell count. Suspect soft tissue source. Await culture data. Start on vancomycin and Zosyn for now. Pharmacy to dose. Follow procalcitonin in 24 hours. 5. GI: N.p.o. for now. Elevated alk phos will need to be trended over time. 6. Renal: Mild hyponatremia with hypokalemia. Initiate ICU electrolyte replacement protocols. Check CPK. 7. Endocrine: Marked elevation in glucose. Suspect underlying diabetes. Check hemoglobin A1c. Glycemic control per ICU protocol. 8. Heme-onc: Leukocytosis likely secondary to underlying infection. We will continue to trend for now. Initiate DVT prophylaxis with subcu heparin. Additional recommendations will be based on results of diagnostic studies and response to therapy. The patient's clinical course at this point time is guarded. 40 minutes in critical care time was spent in evaluation management coordinating care for this patient. History of Present Illness History of Present Illness Asked by hospitalist to assist in evaluation management of this patient with altered mental status and presumptive sepsis. History is obtained from discussion with the hospitalist as well as review the electronic medical record. The patient is somewhat encephalopathic and unable to provide clear history. Patient is a 61-year-old morbidly obese female who does not seek medical care on a regular basis. She is brought to the emergency room due to shortness of breath. Patient was initially placed on BiPAP due to respiratory failure. She has multiple excoriations and ulcerations with surrounding erythema and some purulence. She received fluids on presentation but blood pressure remained low. The ER just finished placing a central line. She received antibiotics in the form of Zosyn. She has no underlying cardiac history that we are aware of. She is not take any medications on a home basis. Allergies Allergy/AdvReac Type Severity Reaction Status Date / Time No Known Allergies Allergy Unverified 04/04/22 09:54 Home Medications Medication Instructions Recorded Confirmed Type No Known Home Medications 04/04/22 04/04/22 History Patient History Social History Smoking Status: Never smoker Review of Systems Review of Systems: Unobtainable due to reduced consciousness Physical Exam Constitutional: + ill appearing, + morbidly obese, + altered mental status and + disheveled Patient is morbidly obese which limits sensitivity of exam. Neck: trachea midline, no thyromegaly Respiratory: normal respiratory effort, lungs clear to auscultation Cardiovascular: RRR, no murmur, no edema Gastrointestinal (Abdomen): normal bowel sounds, soft, nontender, no hepatosplenomegaly Musculoskeletal: Extremities: extremities normal to inspection Skin: Multiple excoriations noted bilaterally with several deeper lesions over her knees and anterior shins. Neurologic: Patient's encephalopathic Lymphatic: no cervical lymphadenopathy Results & Data Results & Data ([facility]) Vital Signs (Past 12 Hours) Vital Signs Temp Pulse Resp BP Pulse Ox O2 Del Method FiO2 04/04/22 10:31 83/55 L 04/04/22 10:30 90 21 94 BiPAP 04/04/22 10:15 96 H 28 H 96 BiPAP 04/04/22 10:15 85/53 L 04/04/22 10:10 81/49 L 04/04/22 10:10 99 H 19 95 04/04/22 10:06 98 H 32 H 95 04/04/22 10:06 87/53 L 04/04/22 10:03 96 H 33 H 96 BiPAP 04/04/22 10:00 97 H 25 H 94 BiPAP 04/04/22 09:45 100 H 29 H 96 BiPAP 04/04/22 09:30 102 H 30 H 89/49 L 96 04/04/22 09:00 113 H 31 H 91 04/04/22 08:30 119 H 29 H 94 04/04/22 08:24 152/93 H 04/04/22 08:24 120 H 36 H 94 04/04/22 08:22 119 H 33 H 94 04/04/22 09:06 111 H 33 H 95 30 04/04/22 08:27 37.4 C 119 H 24 152/93 H 84 L Room Air Critical Care Results & Data Vital Signs (Past 12 Hours) Vital Signs Temp Pulse Resp BP Pulse Ox O2 Del Method FiO2 04/04/22 10:31 83/55 L 04/04/22 10:30 90 21 94 BiPAP 04/04/22 10:15 96 H 28 H 96 BiPAP 04/04/22 10:15 85/53 L 04/04/22 10:10 81/49 L 04/04/22 10:10 99 H 19 95 04/04/22 10:06 98 H 32 H 95 04/04/22 10:06 87/53 L 04/04/22 10:03 96 H 33 H 96 BiPAP 04/04/22 10:00 97 H 25 H 94 BiPAP 04/04/22 09:45 100 H 29 H 96 BiPAP 04/04/22 09:30 102 H 30 H 89/49 L 96 04/04/22 09:00 113 H 31 H 91 04/04/22 08:30 119 H 29 H 94 04/04/22 08:24 152/93 H 04/04/22 08:24 120 H 36 H 94 04/04/22 08:22 119 H 33 H 94 04/04/22 09:06 111 H 33 H 95 30 04/04/22 08:27 37.4 C 119 H 24 152/93 H 84 L Room Air Lab & Micro Results (Past 24 Hours) RBC 3.84 M/uL (3.93-5.22) L 04/04/22 WBC 23.61 K/ul (4.8-10.8) H 04/04/22 Hgb 12.2 g/dl (12.0-16.0) 04/04/22 Hct 33.6 % (34.1-44.9) L 04/04/22 MCV 87.5 fL (80.0-100.0) 04/04/22 MCH 31.8 pg (25.0-34.0) 04/04/22 MCHC 36.3 g/dL (32.0-36.0) H 04/04/22 RDW Standard Deviation 40.7 fL (36.4-46.3) 04/04/22 RDW Coefficient of Variation 12.8 % (11.5-14.5) 04/04/22 Plt Count 316 K/uL (130-400) 04/04/22 MPV 9.4 fL (9.4-12.3) 04/04/22 Neutrophils (%) (Auto) 94.5 % 04/04/22 Lymphocytes (%) (Auto) 2.5 % 04/04/22 Monocytes # (Auto) 0.35 K/uL (0.24-0.82) 04/04/22 Eosinophils # (Auto) 0.03 K/uL (0-0.50) 04/04/22 Immature Granulocyte % (Auto) 1.0 % 04/04/22 Neutrophils # (Auto) 22.30 K/uL (1.4-6.5) H 04/04/22 Lymphocytes # (Auto) 0.60 K/uL (1.2-3.4) L 04/04/22 Monocytes # (Auto) 0.35 K/uL (0.24-0.82) 04/04/22 Eosinophils # (Auto) 0.03 K/uL (0-0.50) 04/04/22 Basophils # (Auto) 0.09 K/uL (0-0.2) 04/04/22 Immature Granulocyte # (Auto) 0.24 K/uL (0.00-0.02) H 04/04 Na 134 mmol/L (136-145) L 04/04/22 K 2.7 mmol/L (3.5-5.1) L 04/04/22 Cl 95 mmol/L (98-107) L 04/04/22 CO2 29 mmol/L (21-32) 04/04/22 Anion Gap 10 (3-11) 04/04/22 BUN 7 mg/dl (6-23) 04/04/22 Creatinine 0.51 mg/dl (0.6-1.2) L 04/04/22 Estimated GFR ( Amer) 120.3 ml/min 04/04/22 Estimated GFR (Non-Af Amer) 103.8 ml/min 04/04/22 BUN/Creatinine Ratio 13.7 (10-20) 04/04/22 Glu 242 mg/dl (70-99(Fasting)) H 04/04/22 Ca 8.0 mg/dl (8.5-10.1) L 04/04/22 Total Bilirubin 0.7 mg/dl (0.2-1.0) 04/04/22 Direct Bilirubin 0.2 mg/dl (0-0.2) 04/04/22 AST 19 U/L (13-39) 04/04/22 ALT 13 U/L (7-52) 04/04/22 Alkaline Phosphatase 164 U/L (34-104) H 04/04/22 TP 7.0 gm/dl (6.0-8.3) 04/04/22 Albumin 2.7 gm/dl (3.4-5.0) L 04/04/22 Mg 1.6 mg/dl (1.7-2.4) L 04/04/22 08:32 Calcium Level 8.0 mg/dl (8.5-10.1) L 04/04/22 08:32 Prothromb Time International Ratio 1.2 (0.9-1.1) H 04/04/22 08 :32 Venous Blood pH 7.48 (7.36-7.41) H 04/04/22 08:32 Venous Blood Partial Pressure CO2 42 mmHg (38-50) 04/04/22 08:3 2 Venous Blood Partial Pressure O2 39 mmHg 04/04/22 08:32 Venous Blood HCO3 31 mmol/L 04/04/22 08:32 Venous Blood Base Excess 7.0 mEq/L 04/04/22 08:32 Venous Blood Oxygen Saturation 69.3 % 04/04/22 08:32 Diagnostic Findings (Past 24 Hours) Chest X-Ray 04/04/22 08:21 XR chest 1V portable CLINICAL HISTORY: Sepsis. COMPARISON STUDY: No previous studies for comparison. FINDINGS: Lung volumes are mildly diminished. No pneumothorax or pleural effusion is identified. Diffuse interstitial thickening is noted. Several bilateral airspace opacities are predominantly linear in configuration. Note is made of cardiomegaly. Right hilar prominence is present. IMPRESSION: 1. Diffuse interstitial thickening. This favors pulmonary edema however an infectious process could appear similar. Radiographic follow-up is recommended. 2. Cardiomegaly. Right hilar enlargement. This may be due to dilated pulmonary vessels however can be assessed on follow-up radiographs to exclude other etiologies such as lymphadenopathy. ACT 112: Negative or not required by law. Electronically signed by: Cruz Berman M.D. 04/04/2022 8:49 AM I & O Totals 24 Hours 04/03/22 04/04/22 04/05/22 07:59 06:59 06:59 Output Total 1200 / 1200 Balance -1200 / -1200 Cumulative 04/04/22 07:29 thru 04/04/22 10:00 Output Total 1200 Balance -1200 RT Ventilator Mngmt (Last Documented) Ventilator Ordered Settings Respiratory Rate 21 04/04/22 10:30 Fraction of Inspired Oxygen 30 04/04/22 09:06 Ventilator - PT Measurements Respiratory Rate 21 Coding Level of Care Code Critical Care 1st 30-74 mins Diagnoses Acute hypoxemic respiratory failure J96.01 Pulmonary edema J81.1 Sepsis A41.9 Encephalopathy G93.40
--- NOTE | 2022-04-04 11:32 | XRay Report ---
XR chest 1V portable CLINICAL HISTORY: Central line placement. COMPARISON STUDY: Chest radiograph performed earlier today. FINDINGS: Interval placement of a left internal jugular central line is noted. Catheter tip projects over the right atrium. There is no pneumothorax. There may be trace bilateral pleural effusions. Lung volumes are diminished. Bibasilar opacities have increased. Interstitial thickening persists. Cardio mediastinal silhouette is stable. IMPRESSION: 1. No pneumothorax following placement of a left internal jugular central line. Tip projects over the right atrium. 2. Persistent interstitial thickening which favors mild pulmonary edema. 3. Increase in bibasilar opacities. The appearance favors atelectasis although pneumonia could appear similar. 4. Possible trace bilateral pleural effusions. ACT 112: Negative or not required by law. Electronically signed by: Cruz Berman M.D. 04/04/2022 11:30 AM
[2022-04-04 12:01] LABS: Acetaminophen < 3 ug/ml (10-30); Salicylate 7.7 mg/dl (3.0-30)
[2022-04-04] MEDS ORDERED: OPTIRAY 320 500ml IV ONE (12:36)
--- NOTE | 2022-04-04 12:49 | CT Scan Report ---
CT OF THE LEFT TIBIA AND FIBULA WITH CONTRAST CLINICAL HISTORY: Left lower leg swelling. COMPARISON STUDY: No previous studies for comparison. TECHNIQUE: Axial images of the left tibia and fibula were obtained following intravenous injection of Optiray. Sagittal and coronal reconstructions were viewed. Automated exposure control was utilized f or the study. A dose lowering technique was utilized adhering to the principles of ALARA. FINDINGS: Vascular opacification suboptimal. This exam was mildly compromised given difficulty positi oning. Severe left knee osteoarthritis is present with joint space narrowing and osteophytosis. A sma ll popliteal cyst is noted. There is no acute fracture within the left tibia or fibula. There is no e vidence for acute osteomyelitis within the left tibia or fibula. Extensive subcutaneous edema of the left lower leg, ankle and visualized portions of the foot are present. There is no fluid collection t o suggest abscess or hematoma. Talar dome is intact. Extensive vascular calcification is incidentally noted. IMPRESSION: 1. No acute fracture. No evidence for acute osteomyelitis within the left tibia or fibula. 2. Extensive subcutaneous fluid of the left lower leg, ankle and foot. This could reflect edema or ce llulitis. No fluid collection to suggest abscess. 3. Severe left knee osteoarthritis. Small popliteal cyst. 4. Extensive vascular calcification. ACT 112: Negative or not required by law. Electronically signed by: Cruz Berman M.D. 04/04/2022 12:47 PM
--- NOTE | 2022-04-04 12:51 | CT Scan Report ---
CT OF THE HEAD WITHOUT CONTRAST CLINICAL HISTORY: Altered mental status. COMPARISON STUDY: No previous studies for comparison. TECHNIQUE: Helical axial images of the head were obtained without IV contrast. Automated exposure con trol was utilized for the study. A dose lowering technique was utilized adhering to the principles o f ALARA. FINDINGS: This study is mildly compromised by motion artifact. No acute intracranial hemorrhage, midl ine shift or mass effect is present. The ventricular system is unremarkable. The basal cisterns are p atent. No extra-axial collections are present. There are no findings to suggest acute dural sinus thr ombosis or acute territorial infarct. No significant calvarial abnormalities are present. Visualized portions of the sinuses and mastoid air cells are clear. IMPRESSION: Exam moderately compromised by motion artifact. No acute intracranial findings. ACT 112: Negative or not required by law. Electronically signed by: Cruz Berman M.D. 04/04/2022 12:49 PM
--- NOTE | 2022-04-04 13:01 | CT Scan Report ---
CT ANGIOGRAPHY OF THE CHEST, PULMONARY EMBOLUS PROTOCOL CLINICAL HISTORY: Confusion. Possible sepsis. Evaluate for pulmonary embolus. COMPARISON STUDY: Chest radiograph performed earlier today. TECHNIQUE: Following IV administration of Optiray, helical axial images of the chest were obtained ut ilizing the pulmonary embolus protocol. Maximal intensity projections and sagittal and coronal refor mats were viewed on an independent 3D workstation. IV contrast was administered without complication . Automated exposure control was utilized for the study. A dose lowering technique was utilized adh ering to the principles of ALARA. FINDINGS: Left internal jugular central line is in place. Moderate cardiomegaly is noted. There is n o thoracic aortic dissection. No pericardial effusion is present. No central or lobar pulmonary embol i are identified. This exam is significantly compromised by respiratory motion artifact. This comprom ises visualization of the segmental and subsegmental pulmonary arteries. Small right and trace left p leural effusions are present. There is no pneumothorax. Multifocal airspace opacities throughout the lungs are noted. The majority of these appear to represent atelectasis. However, an infectious proces s cannot be excluded. There may be mild pulmonary edema. No acute fracture within the bony thorax is noted although sensitivity for detection of nondisplaced fractures is diminished. The abdomen and pel vis CT will be reported separately. There is anasarca. Prominent mediastinal and bilateral hilar lymp h nodes are present. IMPRESSION: 1. Exam significantly compromised by motion artifact. No pulmonary emboli identified although segment al and subsegmental pulmonary arteries suboptimally assessed. 2. Moderate cardiomegaly. Small right and trace left pleural effusions. Suspected pulmonary edema. 3. Multifocal airspace opacities throughout the lungs. The majority of these likely reflect atelectas is. However, multifocal pneumonia cannot be excluded. ACT 112: Negative or not required by law. Electronically signed by: Cruz Berman M.D. 04/04/2022 12:59 PM
--- NOTE | 2022-04-04 13:09 | CT Scan Report ---
CT OF THE ABDOMEN AND PELVIS WITH CONTRAST CLINICAL HISTORY: Sepsis. COMPARISON STUDY: None. TECHNIQUE: Following IV administration of Optiray, axial images of the abdomen and pelvis were obtain ed from the lung bases to the proximal femurs. Images were reviewed in the axial, sagittal, and coron al planes. IV contrast was administered without complication. Automated exposure control was utilize d for the study. A dose lowering technique was utilized adhering to the principles of ALARA. FINDINGS: Please note that the chest CT will be reported separately. No pneumatosis, free air or port al venous gas is present. This study is moderately compromised by motion artifact as well as artifact from body wall contacting the gantry. Trace perihepatic ascites is noted. There is anasarca. No flui d collection is identified within the abdomen or pelvis to suggest an abscess. There is suspected nod ularity of the liver surface. Liver is enlarged. No hepatic lesions are identified on this exam. Ther e is no biliary or pancreatic ductal dilatation. Spleen, adrenal glands, kidneys and pancreas are katie ssly unremarkable. There is no hydronephrosis. There is a Lozano balloon within the bladder which is c ollapsed. Oral contrast within the colon and rectum may be from a previous imaging study. Moderate va scular calcification is present. Caliber of the abdominal aorta is normal. There are multiple calcifi ed nonenlarged lymph nodes within the abdomen and pelvis. These are indeterminate. Left buttock subcu taneous fluid is partially imaged on this examination. No fluid collection is identified within visua lized portions of the imaged pelvis. IMPRESSION: 1. Exam moderately compromised by artifact. 2. No bowel obstruction. No bowel wall thickening. 3. Anasarca. Trace ascites. No fluid collection to suggest abscess. 4. Hepatomegaly. Suspected nodularity of the liver surface raises the possibility of cirrhosis. 5. Cardiomegaly. Small right and trace left pleural effusion with probable pulmonary edema. A superim posed infectious process cannot be excluded within the lungs. ACT 112: Negative or not required by law. Electronically signed by: Cruz Berman M.D. 04/04/2022 1:07 PM
[2022-04-04 13:41] LABS: Base Excess ABG 6.4 mEq/L (-9-1.8); HCO3 ABG 31 mmol/L (19-24); PCO2 ABG 41 mmHg (35-46); PO2 ABG 59 mmHg (80-95); pH ABG 7.48 (7.35-7.45)
[2022-04-04 13:47] LABS: Allen Test Pos (Pos)
--- NOTE | 2022-04-04 14:05 | Electrocardiogram Report ---
Test Reason : Blood Pressure : / mmHG Vent. Rate : 120 BPM Atrial Rate : 120 BPM P-R Int : 156 ms QRS Dur : 104 ms QT Int : 334 ms P-R-T Axes : 016 -38 075 degrees QTc Int : 472 ms Sinus tachycardia with occasional Premature ventricular complexes Left axis deviation Possible Inferior infarct , age undetermined Possible Anterolateral infarct , age undetermined Abnormal ECG No previous ECGs available Confirmed by Nikos Flaherty ([id number]) on 04/04/2022 2:05:02 PM Referred By: REFERRED SELF Confirmed By:Nikos Flaherty
[2022-04-04] MEDS ORDERED: FLUARIX QUADRIVALENT 0.5 ML SYR IM ONE (16:39)
--- NOTE | 2022-04-04 17:31 | Communication Note ---
Date of Service: April 04, 2022 Patient reassessed in the ICU. Her mental status is now better. She is awake alert and conversant. She is oriented to person place and time but does not have a lot of recollection of when she presented to the emergency room. She is been hemodynamically stable and never required initiation of vasopressor agents. Discussed with admitting hospitalist. I think the patient does not require intensive care unit monitoring and would be stable to transfer to the floor. He will transport her. Critical care services will sign off. Feel free to contact us if we can be of additional assistance. Coding Level of Care Code None
[2022-04-04] MEDS ORDERED: ICU ELECTROLYTE REPLACEMENT PROTOCOL SCH (18:00)
[2022-04-04] MEDS ORDERED: PHARMACY GLYCEMIC MGMT CONSULT PRN (18:00)
[2022-04-04] MEDS ORDERED: CARBOHYDRATES FOR HYPOGLYCEMIA PO PRN (18:30)
[2022-04-04] MEDS ORDERED: DEXTROSE 50% 50 ML SYRINGE IV PRN (18:30)
[2022-04-04] MEDS ORDERED: GLUCAGON FOR INJ 1 MG VIAL IM PRN (18:30)
[2022-04-04] MEDS ORDERED: GLUCOSE 40% GEL 15 GM TUBE PO PRN (18:30)
[2022-04-04] MEDS ORDERED: GLUCOSE 10 TAB/TUBE PO PRN (18:30)
[2022-04-04] MEDS: INSULIN ASPART PER UNIT SC SCH (18:43)
[2022-04-04] MEDS ORDERED: INSULIN ASPART PER UNIT ONE (18:44)
--- NOTE | 2022-04-04 19:46 | Pharmacy Report ---
Pharmacy PK ABX Note - Date of Service April 04, 2022 - Assessment and Plan Assessment 61 year old F receiving vancomycin empirically in the setting of sepsis and encephalopathy. Blood cultures pending. Renal function stable. Day #1 of antimicrobial therapy. Plan Vancomycin * Loading dose: 2750 mg IV x 1 * Maintenance dose: 1500 mg IV every 12 hours * Regimen is predicted to achieve target AUC/SAMMI of 400-600 mg/L.hr * Level to be ordered around steady state (or sooner if clinically indicated) if vancomycin continued Pharmacy will continue to follow and will adjust dose/frequency as necessary. Thank you. Pharmacy has transitioned to AUC monitoring for vancomycin. AUC/SAMMI is the preferred PK/PD target and is associated with decreased risk of nephrotoxicity compared to traditional trough targets.
[2022-04-04] MEDS ORDERED: INSULIN ASPART PER UNIT SC SCH (21:00)
[2022-04-04 22:42] LABS: A calco-baum cmplx NotReported Not Detected (NotDetected); Bact fragilis Not Reported Not Detected (NotDetected); C auris Not Reported Not Detected (NotDetected); Calbicans Not Reported Not Detected (NotDetected); Candida glabrata Not Reported Not Detected (NotDetected); Candida krusei Not Reported Not Detected (NotDetected); Cneoformans/gatti Not Reported Not Detected (NotDetected); Cparapsilosis Not Reported Not Detected (NotDetected); Ctropicalis Not Reported Not Detected (NotDetected); E cloacae compx Not Reported Not Detected (NotDetected); Efaecalis Not Reported Not Detected (NotDetected); Efaecium Not Reported Not Detected (NotDetected); Enterobacterales Not Reported Not Detected (NotDetected); Escherichia coli Not Reported Not Detected (NotDetected); H influenzae Not Reported Not Detected (NotDetected); K aerogenes Not Reported Not Detected (NotDetected); Koxytoca Not Reported Not Detected (NotDetected); Kpneumoniae grp Not Reported Not Detected (NotDetected); Lmonocyt Not Reported Not Detected (NotDetected); N meningitidis Not Reported Not Detected (NotDetected); P aeruginosa Not Reported Not Detected (NotDetected); Proteus spp Not Reported Not Detected (NotDetected); Salmonella spp Not Reported Not Detected (NotDetected); Smarcescens Not Reported Not Detected (NotDetected); Staph lugdunensis Not Reported Not Detected (NotDetected); Staph spp. Not Reported DETECTED (NotDetected); Staphaureus Not Reported DETECTED (NotDetected); Staphepi Not Reported Not Detected (NotDetected); Staphylococcus spp. DETECTED (NotDetected); Stenmaltophilia Not Reported Not Detected (NotDetected); Strep agal(GrpB) Not Reported Not Detected (NotDetected); Strep pneum Not Reported Not Detected (NotDetected); Strep pyog (GrpA) Not Reported Not Detected (NotDetected); Strep spp Not Reported Not Detected (NotDetected); mecAC+MREJ Resistant Gene MRSA Not Detected (NotDetected)
[2022-04-05] MEDS: INSULIN ASPART PER UNIT SC SCH ×7 (00:01→20:44)
[2022-04-05] MEDS ORDERED: ACETAMINOPHEN 1000 MG/100 ML IV IV PRN (03:19)
[2022-04-05] MEDS ORDERED: ACETAMINOPHEN 1,000 MG/100 ML VIAL IV PRN (03:22)
[2022-04-05] MEDS ORDERED: VANCOMYCIN HCL 1,500 MG in SODIUM CHLORIDE 0.9% 500 ML IV SCH (04:00)
[2022-04-05 07:23] LABS: Estimated Average Glucose 255 mg/dl; Hemoglobin A1C 10.5 % (4.5-5.6)
[2022-04-05 07:47] LABS: Basophils # (auto) 0.03 K/uL (0-0.2); Basophils % (auto) 0.2 %; Eosinophils # (auto) 0.09 K/uL (0-0.50); Eosinophils % (auto) 0.6 %; Hematocrit (blood only) 29.2 % (34.1-44.9); Hemoglobin 10.3 g/dl (12.0-16.0); Immature Granulocytes # (auto) 0.09 K/uL (0.00-0.02); Immature Granulocytes % (auto) 0.6 %; Lymphocytes # (auto) 1.04 K/uL (1.2-3.4); Lymphocytes % (auto) 6.4 %; Mean Corpuscular Hemoglobin 31.5 pg (25.0-34.0); Mean Corpuscular Hgb Conc 35.3 g/dL (32.0-36.0); Mean Corpuscular Volume 89.3 fL (80.0-100.0); Mean Platelet Volume 9.3 fL (9.4-12.3); Monocytes # (auto) 0.48 K/uL (0.24-0.82); Monocytes % (auto) 2.9 %; Neutrophils # (auto) 14.58 K/uL (1.4-6.5); Neutrophils % (auto) 89.3 %; Platelet Count 249 K/uL (130-400); RDW Coefficient of Variation 13.1 % (11.5-14.5); Red Blood Count 3.27 M/uL (3.93-5.22); White Blood Count 16.31 K/ul (4.8-10.8)
--- NOTE | 2022-04-05 07:54 | XCELERA ---
[id number]
[2022-04-05 08:15] LABS: Calcium 7.6 mg/dl (8.5-10.1); Est GFR (African American) 121.1 ml/min; Est GFR (Non-African American) 104.5 ml/min; Magnesium 1.9 mg/dl (1.7-2.4); Phosphorus 2.7 mg/dl (2.5-4.9); Potassium 2.8 mmol/L (3.5-5.1)
[2022-04-05] MEDS: POTASSIUM CHLORIDE / WTR 20 MEQ/100 ML PLCT IV SCH ×2 (09:11→11:03)
--- NOTE | 2022-04-05 09:15 | Pharmacy Report ---
Pharmacy Glycemic Short Note 2 - Date of Service April 05, 2022 - Glycemic Short BSG Results (Last 24 hours): 04/04/22 04/04/22 04/04/22 08:32 17:31 23:31 Glucose 242 H POC Glucose 260 H 198 H 04/05/22 04/05/22 04/05/22 06:28 07:11 07:31 Glucose 154 H POC Glucose 174 H 154 H OUTPATIENT ANTIDIABETIC REGIMEN: * n/a * A1c 10.5% ASSESSMENT: * 61 year old female admitted with encephalopathy/sepsis. Per notes, has not had any healthcare followups in over 30 years. Currently being treated for a bacteremia. Pharmacy consulted for glycemic management as BSGs elevated on admission in the 200s. * Patient received total of 6 units of insulin yesterday. Fasting BSG 154 mg/dL - NPO this morning. Will start with stress of 2 for novolog for now. * A1c elevated on admission, likely will need insulin on discharge. Will initiate low dose basal insulin later today if diet started PLAN FOR INPATIENT GLYCEMIC CONTROL: * Hold outpatient oral diabetes medications * Basal insulin * Lantus - pending diet * Bolus insulin * NovoLog per scale ACHS or Q6hrs while NPO * Goal Range: Low 110 mg/dL - High 140 mg/dL * Correction Factor: 30 mg/dL/unit * Nutritional / Prandial insulin per carb ratio of 1 unit per 10 grams CHO consumed
[2022-04-05] MEDS: ceFAZolin 2000MG 2,000 MG/15 ML SYR IV SCH ×2 (09:36→17:31)
[2022-04-05 09:51] LABS: Base Excess VBG 6.1 mEq/L; HCO3 VBG 31 mmol/L; Oxygen Saturation VBG 74.6 %; PCO2 VBG 46 mmHg (38-50); PO2 VBG 42 mmHg; pH VBG 7.44 (7.36-7.41)
[2022-04-05] MEDS: PANTOprazole 40 MG in SYRINGE 0 ML IV SCH (11:03)
[2022-04-05] MEDS ORDERED: FUROSEMIDE 40 MG/4 ML VIAL IV ONE ×3 (14:08→14:37)
--- NOTE | 2022-04-05 14:39 | XRay Report ---
SINGLE VIEW CHEST CLINICAL HISTORY: Respiratory distress. FINDINGS: An AP, portable, upright chest radiograph is compared to chest x-ray and chest CT dated 04/04/2022. The examination is degraded by portable technique , apical lordotic positioning, and patient rotation. A left internal jugular central venous catheter is unchanged in position. The heart is enla rged. There is pulmonary vascular congestion with evidence of interstitial edema. Small pleural effus ions are noted. No pneumothorax is seen. The skeletal structures are osteopenic. The bony thorax is g rossly intact. IMPRESSION: 1. Cardiomegaly with evidence of congestive failure and pulmonary edema. This is unchanged to modestl y worsened as compared to yesterday. Correlate clinically for evidence of a superimposed infectious/i nflammatory pneumonitis. 2. Small pleural effusions. ACT 112: Negative or not required by law. Electronically signed by: Israel Johnson M.D. 04/05/2022 2:38 PM
[2022-04-05 14:49] LABS: Base Excess VBG 9.7 mEq/L; HCO3 VBG 35 mmol/L; Oxygen Saturation VBG 73.6 %; PCO2 VBG 48 mmHg (38-50); PO2 VBG 41 mmHg; pH VBG 7.47 (7.36-7.41)
[2022-04-05] MEDS ORDERED: FUROSEMIDE INJ 20 MG/2 ML VIAL IV ONE (14:57)
[2022-04-05 15:11] LABS: BUN Creatinine Ratio 21.4 (10-20); Calcium 7.8 mg/dl (8.5-10.1); Creatinine Clr Calc Pharmacy 142.9 ml/min; Est GFR (African American) 116.6 ml/min; Est GFR (Non-African American) 100.6 ml/min; Potassium 3.3 mmol/L (3.5-5.1)
[2022-04-05] MEDS ORDERED: POTASSIUM CHLORIDE / WTR 20 MEQ/100 ML PLCT IV ONE (18:30)
[2022-04-05] MEDS ORDERED: OLANZapine 10 MG/2.1 ML SDV IM STA (20:09)
[2022-04-05] MEDS ORDERED: LANTUS PER UNIT CHARGE SQ SCH (21:00)
--- NOTE | 2022-04-05 21:04 | Hospitalist Progress Note ---
Date of Service April 05, 2022 Assessment & Plan (1) Pulmonary edema: Plan: On second visit in PM. Patient had flash pulmonary edema, ordered 60 mg of IV lasix. Patient did not improve, ordered an additional 40mg of IV lasix. replenished her potassium, placed on BIPAP as patient was in acute hypoxic respiratory failure. Xray showed patchy bilateral infiltrates. Patient did improve, and was seen after patient had an output of 3 liters of urine. (2) Bacteremia: Plan: Gram positive bacteremia source is likely soft tissue. will continue to monitor. continue iv antibioitcs (3) Encephalopathy: Plan: Hypoxemic and obtunded 61 yo obese femela who has not received health care for over 30 years likely multifactorial. concern over sepsis, unknown source. 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 cultures obtained prior to antibiotics. Given lack of history and medical folllow-up complicates work up as she likely has multiple medical comorbidites that have not been diagnosed. Central line obtained as blood pressures have been low. check Hemoglobin A!C (4) Acute hypoxemic respiratory failure: Plan: will obtain an echocardiogram. May need to diurese. (5) Sepsis: Plan: unknown source as stated above. (6) Diabetes 1.5, managed as type 2: Plan: Patient has likely type II diabetes Will place on insulin for now. consulted glycemic control A!C is 10 Admission and Anticipated Discharge Date Admission Date: April 04, 2022 Subjective Patient reported feeling better. She has no new symptoms. Later in the afternoon, patient was again seen and was found to be hypoxic, lethargic, using accessory muslces to breath. X-ray order and labs were repeated. Patient was in flash pulmonary edema. Review of Systems Review of Systems: All systems reviewed & are unremarkable except as noted in HPI & below Physical Exam Constitutional: + ill appearing, + morbidly obese and + altered mental status Eyes: PERRL, conjunctivae normal, anicteric sclerae ENMT: external ear and nose normal, oropharynx normal Neck: trachea midline, no thyromegaly Respiratory: Auscultation: + diminished lung sounds and + crackles Cardiovascular: Rate/Rhythm: regular rhythm and + tachycardic Vessels: no JVD Gastrointestinal (Abdomen): normal bowel sounds, soft, nontender, no hepatosplenomegaly Skin: + lesion (large excoriation on left lower leg with surronding erythema) Psychiatric: A+Ox3, euthymic affect Results & Data Results & Data ([facility]) Vital Signs (Past 12 Hours) Vital Signs Temp Pulse Pulse Resp BP Pulse Ox O2 Del Method 04/05/22 19:27 37.0 C 99 H 20 119/76 96 BiPAP 04/05/22 19:26 98 H 25 H 95 04/05/22 17:56 37.6 C H 101 H 19 114/69 04/05/22 16:27 121/78 04/05/22 16:07 108 H 21 95 04/05/22 15:49 117 H 04/05/22 15:03 Oxymask 04/05/22 14:50 110 H 26 H 111/72 04/05/22 14:35 125 H 26 H 95 04/05/22 14:12 124 H 28 H 167/99 H 96 Oxymask 04/05/22 10:46 36.9 C 103 H 19 119/78 95 Nasal Cannula O2 Flow Rate FiO2 04/05/22 19:27 04/05/22 19:26 30 04/05/22 17:56 04/05/22 16:27 04/05/22 16:07 30 04/05/22 15:49 04/05/22 15:03 5 04/05/22 14:50 04/05/22 14:35 30 04/05/22 14:12 5 04/05/22 10:46 4 PG Care Time/CCT Total # of Minutes Spent Total Time Spent with Patient: Total time spent is greater than 50% in coordination of care (as documented) at patient's floor/unit and/or counseling patient: Critical Care Time: Yes Total Critical Care Time: 35 Coding Level of Care Code 29312 Subseq Hosp Care Lvl 3 (25 - SIGNIFICANT, SEPARATELY IDENTIFIABLE ) Diagnoses Pulmonary edema J81.0 Chronicity: acute Bacteremia R78.81 Encephalopathy G93.40 Acute hypoxemic respiratory failure J96.01 Sepsis A41.9 Sepsis acute organ dysfunction status: unspecified Sepsis type: sepsis due to unspecified organism Diabetes 1.5, managed as type 2 E13.9 Additional Codes Critical Care Time - Critical Care Time: Yes ([id number]) Comment 2 visits during 04/06 second visit in PM was flash pulmonary edema (1) Pulmonary edema Chronicity: acute Qualified Code(s): J81.0 - Acute pulmonary edema (2) Sepsis Sepsis acute organ dysfunction status: unspecified Sepsis type: sepsis due to unspecified organism Qualified Code(s): A41.9 - Sepsis, unspecified organism
[2022-04-06] MEDS: ceFAZolin 2000MG 2,000 MG/15 ML SYR IV SCH ×3 (01:29→18:20)
[2022-04-06 08:21] LABS: Basophils # (auto) 0.04 K/uL (0-0.2); Basophils % (auto) 0.3 %; Eosinophils # (auto) 0.16 K/uL (0-0.50); Eosinophils % (auto) 1.1 %; Hematocrit (blood only) 31.3 % (34.1-44.9); Hemoglobin 10.7 g/dl (12.0-16.0); Immature Granulocytes # (auto) 0.13 K/uL (0.00-0.02); Immature Granulocytes % (auto) 0.9 %; Lymphocytes # (auto) 1.48 K/uL (1.2-3.4); Lymphocytes % (auto) 9.8 %; Mean Corpuscular Hemoglobin 31.2 pg (25.0-34.0); Mean Corpuscular Hgb Conc 34.2 g/dL (32.0-36.0); Mean Corpuscular Volume 91.3 fL (80.0-100.0); Mean Platelet Volume 9.6 fL (9.4-12.3); Monocytes # (auto) 0.63 K/uL (0.24-0.82); Monocytes % (auto) 4.2 %; Neutrophils # (auto) 12.73 K/uL (1.4-6.5); Neutrophils % (auto) 83.7 %; Platelet Count 271 K/uL (130-400); RDW Coefficient of Variation 12.8 % (11.5-14.5); RDW Standard Deviation 42.5 fL (36.4-46.3); Red Blood Count 3.43 M/uL (3.93-5.22); White Blood Count 15.17 K/ul (4.8-10.8)
[2022-04-06 08:34] LABS: BUN Creatinine Ratio 27.9 (10-20); Calcium 7.6 mg/dl (8.5-10.1); Creatinine Clr Calc Pharmacy 183.1 ml/min; Est GFR (African American) 127.2 ml/min; Est GFR (Non-African American) 109.8 ml/min; Magnesium 1.9 mg/dl (1.7-2.4); Phosphorus 2.5 mg/dl (2.5-4.9)
[2022-04-06] MEDS: INSULIN ASPART PER UNIT SC SCH ×4 (09:08→20:37)
[2022-04-06] MEDS: POTASSIUM CHLORIDE / WTR 20 MEQ/100 ML PLCT IV SCH ×3 (10:41→16:09)
[2022-04-06] MEDS: FUROSEMIDE 40 MG/4 ML VIAL IV SCH ×2 (10:41→22:40)
[2022-04-06] MEDS: PANTOprazole 40 MG in SYRINGE 0 ML IV SCH (11:34)
--- NOTE | 2022-04-06 20:11 | Hospitalist Progress Note ---
Date of Service April 06, 2022 Assessment & Plan (1) Pulmonary edema: Plan: On second visit in PM. Patient had flash pulmonary edema, ordered 60 mg of IV lasix. Patient did not improve, ordered an additional 40mg of IV lasix. replenished her potassium, placed on BIPAP as patient was in acute hypoxic respiratory failure. Xray showed patchy bilateral infiltrates. Improving on 04/06 (2) Bacteremia: Plan: Gram positive bacteremia source is likely soft tissue. will continue to monitor. continue iv antibioitcs (3) Encephalopathy: Plan: Hypoxemic and obtunded 61 yo obese femela who has not received health care for over 30 years likely multifactorial. concern over sepsis, unknown source. 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 cultures obtained prior to antibiotics. Given lack of history and medical folllow-up complicates work up as she likely has multiple medical comorbidites that have not been diagnosed. Central line obtained as blood pressures have been low. improving on 04/06 (4) Acute hypoxemic respiratory failure: Plan: will obtain an echocardiogram. May need to diurese. (5) Sepsis: Plan: source appears to be skin Patient has gram positive bacteremia. continue antibiotics will repeat cultures (6) Diabetes 1.5, managed as type 2: Plan: Patient has likely type II diabetes Will place on insulin for now. consulted glycemic control A!C is 10 Admission and Anticipated Discharge Date Admission Date: April 04, 2022 Subjective 61 yo female reports breathing better. She has no new complaints. Review of Systems Review of Systems: All systems reviewed & are unremarkable except as noted in HPI & below Physical Exam Constitutional: + ill appearing, + morbidly obese and + altered mental status Eyes: PERRL, conjunctivae normal, anicteric sclerae ENMT: external ear and nose normal, oropharynx normal Neck: trachea midline, no thyromegaly Respiratory: Auscultation: + diminished lung sounds and + crackles Cardiovascular: Rate/Rhythm: regular rhythm and + tachycardic Vessels: no JVD Gastrointestinal (Abdomen): normal bowel sounds, soft, nontender, no hepatosplenomegaly Skin: + lesion (large excoriation on left lower leg with surronding erythema) Psychiatric: A+Ox3, euthymic affect Results & Data Results & Data ([facility]) Vital Signs (Past 12 Hours) Vital Signs Temp Pulse Pulse Resp BP Pulse Ox O2 Del Method 04/06/22 19:14 36.8 C 113 H 18 118/68 94 Nasal Cannula 04/06/22 15:30 37.0 C 70 18 114/60 97 04/06/22 16:00 108 H 04/06/22 11:00 37.2 C 86 16 138/73 95 04/06/22 10:19 Nasal Cannula O2 Flow Rate 04/06/22 19:14 2 04/06/22 15:30 04/06/22 16:00 04/06/22 11:00 04/06/22 10:19 2 PG Care Time/CCT Total # of Minutes Spent Total Time Spent with Patient: Total time spent is greater than 50% in coordination of care (as documented) at patient's floor/unit and/or counseling patient: Coding Level of Care Code 92845 Subseq Hosp Care Lvl 3 Diagnoses Pulmonary edema J81.0 Chronicity: acute Bacteremia R78.81 Encephalopathy G93.40 Acute hypoxemic respiratory failure J96.01 Sepsis A41.9 Sepsis acute organ dysfunction status: unspecified Sepsis type: sepsis due to unspecified organism Diabetes 1.5, managed as type 2 E13.9 Time Spent (min) 35 (1) Pulmonary edema Chronicity: acute Qualified Code(s): J81.0 - Acute pulmonary edema (2) Sepsis Sepsis acute organ dysfunction status: unspecified Sepsis type: sepsis due to unspecified organism Qualified Code(s): A41.9 - Sepsis, unspecified organism
[2022-04-06] MEDS ORDERED: LANTUS PER UNIT CHARGE SQ SCH (21:00)
[2022-04-07] MEDS: ceFAZolin 2000MG 2,000 MG/15 ML SYR IV SCH ×3 (01:00→18:12)
[2022-04-07 06:02] LABS: Basophils # (auto) 0.05 K/uL (0-0.2); Basophils % (auto) 0.4 %; Eosinophils # (auto) 0.21 K/uL (0-0.50); Eosinophils % (auto) 1.7 %; Hematocrit (blood only) 29.6 % (34.1-44.9); Hemoglobin 10.1 g/dl (12.0-16.0); Immature Granulocytes # (auto) 0.08 K/uL (0.00-0.02); Immature Granulocytes % (auto) 0.6 %; Lymphocytes # (auto) 2.09 K/uL (1.2-3.4); Lymphocytes % (auto) 16.8 %; Mean Corpuscular Hemoglobin 31.2 pg (25.0-34.0); Mean Corpuscular Hgb Conc 34.1 g/dL (32.0-36.0); Mean Corpuscular Volume 91.4 fL (80.0-100.0); Mean Platelet Volume 9.5 fL (9.4-12.3); Monocytes # (auto) 0.59 K/uL (0.24-0.82); Monocytes % (auto) 4.7 %; Neutrophils # (auto) 9.43 K/uL (1.4-6.5); Neutrophils % (auto) 75.8 %; Platelet Count 243 K/uL (130-400); RDW Coefficient of Variation 12.9 % (11.5-14.5); RDW Standard Deviation 43.1 fL (36.4-46.3); Red Blood Count 3.24 M/uL (3.93-5.22); White Blood Count 12.45 K/ul (4.8-10.8)
[2022-04-07 06:39] LABS: BUN Creatinine Ratio 28.6 (10-20); Calcium 7.4 mg/dl (8.5-10.1); Creatinine Clr Calc Pharmacy 187.1 ml/min; Est GFR (African American) 128.2 ml/min; Est GFR (Non-African American) 110.6 ml/min; Magnesium 1.7 mg/dl (1.7-2.4); Phosphorus 2.2 mg/dl (2.5-4.9); Potassium 2.9 mmol/L (3.5-5.1)
[2022-04-07] MEDS: INSULIN ASPART PER UNIT SC SCH ×4 (08:36→21:02)
[2022-04-07] MEDS: LANTUS PER UNIT CHARGE SQ SCH ×2 (08:37→21:02)
[2022-04-07] MEDS ORDERED: POTASSIUM CHLORIDE / WTR 10 MEQ/100 ML PLCT IV SCH (08:45)
[2022-04-07] MEDS: POTASSIUM CHLORIDE CRTAB 20 MEQ TABCR PO SCH ×3 (10:08→20:50)
[2022-04-07] MEDS: POTASSIUM CHLORIDE / WTR 20 MEQ/100 ML PLCT IV SCH ×2 (10:08→12:19)
[2022-04-07] MEDS: FUROSEMIDE 40 MG/4 ML VIAL IV SCH ×2 (10:09→20:50)
[2022-04-07] MEDS: PANTOprazole 40 MG in SYRINGE 0 ML IV SCH (10:09)
--- NOTE | 2022-04-07 13:28 | Pharmacy Report ---
Pharmacy Glycemic Short Note 2 - Date of Service April 07, 2022 - Glycemic Short BSG Results (Last 24 hours): 04/06/22 04/06/22 04/07/22 16:34 19:54 05:37 Glucose 178 H POC Glucose 172 H 174 H 04/07/22 04/07/22 07:09 11:30 Glucose POC Glucose 194 H 175 H OUTPATIENT ANTIDIABETIC REGIMEN: * n/a * A1c 10.5% ASSESSMENT: 04/07 * BSGs with reasonable control yesterday with 35 units of insulin, 10 units of basal * Fasting this AM 194 mg/dL- will increase lantus to 8 units BID today * Tightened correction factor 04/05 * 61 year old female admitted with encephalopathy/sepsis. Per notes, has not had any healthcare followups in over 30 years. Currently being treated for a bacteremia. Pharmacy consulted for glycemic management as BSGs elevated on admission in the 200s. * Patient received total of 6 units of insulin yesterday. Fasting BSG 154 mg/dL - NPO this morning. Will start with stress of 2 for novolog for now. * A1c elevated on admission, likely will need insulin on discharge. Will initiate low dose basal insulin later today if diet started PLAN FOR INPATIENT GLYCEMIC CONTROL: * Basal insulin * Lantus - 8 units BID * Bolus insulin * NovoLog per scale ACHS or Q6hrs while NPO * Goal Range: Low 110 mg/dL - High 140 mg/dL * Correction Factor: 25 mg/dL/unit * Nutritional / Prandial insulin per carb ratio of 1 unit per 10 grams CHO consumed
--- NOTE | 2022-04-07 21:29 | Hospitalist Progress Note ---
Date of Service April 07, 2022 Assessment & Plan (1) Pulmonary edema: Plan: This is a 1 yo female who came into the hospital with sepsis with unknown source and encephalopathic. She has not seen a doctor for years, hence no mast medical history as her problems have not been diagnosed. As well as having pulmonary edema. She improved with antibiotics and it was deemed that her source were her multiple skin lesions, this was confirmed by her blood cultures. Patient initally admitted to ICU, but did not require pressors and was transferred to PCU on same day of admission. Patient on second day of hospital stay, required 100 mg of lasix and urinated about 3 liters in that afternoon. Patient required BIPAP intially but is now on nasal cannula and is tolerating IV lasix BID. Echo results showed aortic stenosis and low normal EF 50-55% Cause likely Low ejection fraction cardiomyopathy complicated by her aortic stenosis. As stated above, she required BIPAP earlier in hospital stay due to acute hypoxic respiratory failure. Xray showed patchy bilateral infiltrates This has been improving.. (2) Bacteremia: Plan: Gram positive bacteremia source is likely soft tissue. will continue to monitor. continue iv antibioitcs central line removed on 04/07 cultures showed MSSA, awaiting repeat cultures. removed central line on 04/07 and cultured tip. will likely require 4-6 weeks of IV antibiotics. and can place PICC line once cultures are negative. will repeat cultures on 04/08 (3) Encephalopathy: Plan: *Metabolic/septic encephalopathy Resolved on 04/07 Hypoxemic and obtunded 61 yo obese femela who has not received health care for over 30 years likely multifactorial. concern over sepsis, unknown source. 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 cultures obtained prior to antibiotics. Given lack of history and medical folllow-up complicates work up as she likely has multiple medical comorbidites that have not been diagnosed. Central line obtained as blood pressures have been low. (4) Acute hypoxemic respiratory failure: Plan: echo resulted continue IV diruetics (5) Sepsis: Plan: source appears to be skin Patient has gram positive bacteremia. continue antibiotics will repeat cultures (6) Diabetes 1.5, managed as type 2: Plan: Patient has likely type II diabetes Will place on insulin for now. 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 Patient may benefit from diabetes treatment that also promote weight loss such as metformin and Trulicity for example. Admission and Anticipated Discharge Date Admission Date: April 04, 2022 Subjective Patient reports feeling significantly better today. She is breathing better. She has no new complaints. Review of Systems Review of Systems: All systems reviewed & are unremarkable except as noted in HPI & below Physical Exam Constitutional: + morbidly obese; no acute distress Eyes: PERRL, conjunctivae normal, anicteric sclerae ENMT: external ear and nose normal, oropharynx normal Neck: trachea midline, no thyromegaly Respiratory: Auscultation: + diminished lung sounds and + crackles Cardiovascular: Rate/Rhythm: regular rhythm and + tachycardic Vessels: no JVD Gastrointestinal (Abdomen): normal bowel sounds, soft, nontender, no hepatosplenomegaly Skin: + lesion (large excoriation on left lower leg with surronding erythema) multiple skin lesions noted by wound care (about 18) Psychiatric: A+Ox3, euthymic affect Results & Data Results & Data ([facility]) Vital Signs (Past 12 Hours) Vital Signs Temp Pulse Pulse Resp BP BP Pulse Ox 04/07/22 19:05 36.9 C 94 H 18 104/66 97 04/07/22 17:00 99 H 18 119/72 91 04/07/22 16:30 99 H 18 134/85 94 04/07/22 16:00 91 H 20 124/77 98 04/07/22 15:50 36.8 C 92 H 20 116/77 98 04/07/22 15:26 94 H 04/07/22 15:01 36.6 C 92 H 16 116/73 96 04/07/22 11:53 36.7 C 97 H 18 112/72 96 O2 Del Method O2 Flow Rate 04/07/22 19:05 Nasal Cannula 2 04/07/22 17:00 Room Air 04/07/22 16:30 Nasal Cannula 2.0 04/07/22 16:00 Room Air 04/07/22 15:50 Nasal Cannula 2 04/07/22 15:26 04/07/22 15:01 Nasal Cannula 2 04/07/22 11:53 Nasal Cannula 2.0 PG Care Time/CCT Total # of Minutes Spent Total Time Spent with Patient: Total time spent is greater than 50% in coordination of care (as documented) at patient's floor/unit and/or counseling patient: Coding Level of Care Code 71950 Subseq Hosp Care Lvl 3 Diagnoses Pulmonary edema J81.0 Chronicity: acute Bacteremia R78.81 Encephalopathy G93.40 Acute hypoxemic respiratory failure J96.01 Sepsis A41.9 Sepsis acute organ dysfunction status: unspecified Sepsis type: sepsis due to unspecified organism Diabetes 1.5, managed as type 2 E13.9 Morbid obesity with BMI of 50.0-59.9, adult E66.01; Z68.43 (1) Pulmonary edema Chronicity: acute Qualified Code(s): J81.0 - Acute pulmonary edema (2) Sepsis Sepsis acute organ dysfunction status: unspecified Sepsis type: sepsis due to unspecified organism Qualified Code(s): A41.9 - Sepsis, unspecified organism
[2022-04-08] MEDS: ceFAZolin 2000MG 2,000 MG/15 ML SYR IV SCH ×3 (00:36→17:20)
[2022-04-08] MEDS ORDERED: ACETAMINOPHEN 500 MG TAB ONE (03:59)
[2022-04-08] MEDS: ACETAMINOPHEN 500 MG TAB PO SCH ×3 (04:02→21:07)
[2022-04-08] MEDS: INSULIN ASPART PER UNIT SC SCH ×4 (07:55→21:05)
[2022-04-08] MEDS: LANTUS PER UNIT CHARGE SQ SCH (07:55)
[2022-04-08 08:26] LABS: Hematocrit (blood only) 34.2 % (34.1-44.9); Hemoglobin 11.6 g/dl (12.0-16.0); Mean Corpuscular Hemoglobin 31.2 pg (25.0-34.0); Mean Corpuscular Hgb Conc 33.9 g/dL (32.0-36.0); Mean Corpuscular Volume 91.9 fL (80.0-100.0); Mean Platelet Volume 9.6 fL (9.4-12.3); Platelet Count 317 K/uL (130-400); RDW Coefficient of Variation 12.9 % (11.5-14.5); RDW Standard Deviation 43.3 fL (36.4-46.3); Red Blood Count 3.72 M/uL (3.93-5.22); White Blood Count 10.69 K/ul (4.8-10.8)
[2022-04-08] MEDS: POTASSIUM CHLORIDE CRTAB 20 MEQ TABCR PO SCH ×3 (08:39→21:11)
[2022-04-08 08:56] LABS: BUN Creatinine Ratio 26.7 (10-20); Calcium 8.1 mg/dl (8.5-10.1); Creatinine Clr Calc Pharmacy 172.1 ml/min; Est GFR (African American) 125.3 ml/min; Est GFR (Non-African American) 108.1 ml/min; Magnesium 1.7 mg/dl (1.7-2.4); Phosphorus 2.4 mg/dl (2.5-4.9); Potassium 3.4 mmol/L (3.5-5.1)
[2022-04-08] MEDS ORDERED: PANTOprazole 40 MG TAB PO SCH (09:00)
[2022-04-08] MEDS ORDERED: LANTUS PER UNIT CHARGE SQ SCH ×2 (09:00→21:00)
[2022-04-08] MEDS: FUROSEMIDE 40 MG/4 ML VIAL IV SCH ×2 (11:02→21:06)
[2022-04-08] MEDS: POT PHOSPHATE MONOBASIC W/ SOD TAB PO SCH ×4 (11:03→21:07)
--- NOTE | 2022-04-08 17:56 | Hospitalist Progress Note ---
Date of Service April 08, 2022 Assessment & Plan (1) Acute diastolic (congestive) heart failure: Plan: improving with lasix 40mg IV BID add metoprolol 12.5mg BID EF technically preserved but low-normal at 50-55% RV function preserved CT imaging with ?cirrhosis which could be contributing to volume status issues TSH wnl today although she has mod-severe I am uncertain if this is contributing to decompensated CHF while here will need cardiology consultation (2) Acute hypoxemic respiratory failure: Plan: 2nd to pulmonary edema from #1 improved O2 weaning supportive care (3) Bacteremia: Plan: 2nd MSSA, likely source being the skin on lower extremities (multiple open ulcers/sores) repeat blood cultures 04/06 and 04/08 thus far negative to date echo without obvious valvular vegetations will need at least 2 weeks of Rx currently on ancef 2gm IV q8h consider ID consultation (4) Morbid obesity with BMI of 50.0-59.9, adult: Plan: BMI about 50 (5) Aortic stenosis: Plan: mod-severe valve area 1.1cm^2 (6) Type 2 diabetes mellitus: Plan: new-onset Hba1c 10.5% uncontrolled adjust novolog adjust lantus trend BSGs DM diet (7) Hypomagnesemia: Plan: replaced resolved (8) Hypokalemia: Plan: mildly low cont replacement (9) Skin lesion: Plan: multiple, lower extremities due to falls, venous stasis, etc cont topical wound care (10) Acute metabolic encephalopathy: Plan: 2nd to hypoxia, bacteremia, etc - significantly improved/resolved (11) DVT prophylaxis: Plan add lovenox 40mg BID due to morbid obesity PT, OT joselyn Admission and Anticipated Discharge Date Admission Date: April 04, 2022 Subjective patient sitting in chair during the visit was comfortable had a good night last pm denies dyspnea at rest [place] is MUCH better since admission minimal cough eating fine no new complaints Review of Systems Review of Systems: gen - no fever cv - no chest pain pulm - no orthopnea GI - no pain, no nausea/emesis Physical Exam Physical Exam: gen - morbidly obese, NAD; pleasant mouth - MMM; poor dentition neck - no obvious JVD heart - RRR, s1 s2, 2/6 systolic murmur RUSB lungs - faint b/l basilar rales, decreased BS bases; no wheeze; no increased work of breathing abd - soft NT ND BS+ ext - 2+ edema from feet to the thighs, pulses 2+ b/l skin - multiple ulcerations b/l shins; b/l knee lesions from prior falls Results & Data Results & Data ([facility]) Vital Signs (Past 12 Hours) Vital Signs Temp Pulse Pulse Resp BP BP Pulse Ox 04/08/22 15:00 92 H 04/08/22 16:12 36.4 C L 86 18 118/75 98 04/08/22 11:29 85 18 108/93 97 04/08/22 08:00 83 04/08/22 08:00 04/08/22 07:25 37.2 C 89 20 114/73 96 O2 Del Method O2 Flow Rate 04/08/22 15:00 04/08/22 16:12 Nasal Cannula 2 04/08/22 11:29 Nasal Cannula 2 04/08/22 08:00 04/08/22 08:00 Nasal Cannula 2 04/08/22 07:25 Nasal Cannula 2 Laboratory Results Laboratory Results - last 24 hr 04/07/22 04/07/22 04/08/22 20:26 20:27 07:39 WBC RBC Hgb Hct MCV MCH MCHC RDW Std Deviation RDW Coeff of Chintan Plt Count MPV Sodium Potassium Chloride Carbon Dioxide Anion Gap BUN Creatinine Est Cr Clr Drug Dosing Est GFR ( Amer) Est GFR (Non-Af Amer) BUN/Creatinine Ratio Glucose POC Glucose 311 H* 202 H 187 H Calcium Phosphorus Magnesium B-Natriuretic Peptide Procalcitonin TSH 04/08/22 04/08/22 04/08/22 07:49 07:49 07:49 WBC 10.69 RBC 3.72 L Hgb 11.6 L Hct 34.2 MCV 91.9 MCH 31.2 MCHC 33.9 RDW Std Deviation 43.3 RDW Coeff of Chintan 12.9 Plt Count 317 MPV 9.6 Sodium 135 L Potassium 3.4 L Chloride 92 L Carbon Dioxide 38 H Anion Gap 5 BUN 12 Creatinine 0.45 L Est Cr Clr Drug Dosing 172.1 Est GFR ( Amer) 125.3 Est GFR (Non-Af Amer) 108.1 BUN/Creatinine Ratio 26.7 H Glucose 191 H POC Glucose Calcium 8.1 L Phosphorus 2.4 L Magnesium 1.7 B-Natriuretic Peptide 599 H Procalcitonin TSH 04/08/22 04/08/22 04/08/22 07:49 07:49 11:25 WBC RBC Hgb Hct MCV MCH MCHC RDW Std Deviation RDW Coeff of Chintan Plt Count MPV Sodium Potassium Chloride Carbon Dioxide Anion Gap BUN Creatinine Est Cr Clr Drug Dosing Est GFR ( Amer) Est GFR (Non-Af Amer) BUN/Creatinine Ratio Glucose POC Glucose 189 H Calcium Phosphorus Magnesium B-Natriuretic Peptide Procalcitonin 1.96 H TSH 3.714 04/08/22 16:32 WBC RBC Hgb Hct MCV MCH MCHC RDW Std Deviation RDW Coeff of Chintan Plt Count MPV Sodium Potassium Chloride Carbon Dioxide Anion Gap BUN Creatinine Est Cr Clr Drug Dosing Est GFR ( Amer) Est GFR (Non-Af Amer) BUN/Creatinine Ratio Glucose POC Glucose 182 H Calcium Phosphorus Magnesium B-Natriuretic Peptide Procalcitonin TSH PG Care Time/CCT Total # of Minutes Spent Total Time Spent with Patient: Total time spent is greater than 50% in coordination of care (as documented) at patient's floor/unit and/or counseling patient: Coding Level of Care Code 27881 Subseq Hosp Care Lvl 3 Diagnoses Acute diastolic (congestive) heart failure I50.31 Acute hypoxemic respiratory failure J96.01 Bacteremia R78.81 Morbid obesity with BMI of 50.0-59.9, adult E66.01; Z68.43 Aortic stenosis I35.0 Type 2 diabetes mellitus E11.9 Hypomagnesemia E83.42 Hypokalemia E87.6 Skin lesion L98.9 Acute metabolic encephalopathy G93.41 DVT prophylaxis Z29.9
[2022-04-08] MEDS: METOPROLOL TARTRATE 25 MG TAB PO SCH (21:08)
[2022-04-09] MEDS: ceFAZolin 2000MG 2,000 MG/15 ML SYR IV SCH ×3 (02:06→17:16)
[2022-04-09] MEDS: ACETAMINOPHEN 500 MG TAB PO SCH ×3 (03:09→22:05)
[2022-04-09] MEDS: INSULIN ASPART PER UNIT SC SCH ×4 (08:16→22:04)
[2022-04-09] MEDS: LANTUS PER UNIT CHARGE SQ SCH ×2 (08:17→22:10)
[2022-04-09] MEDS: METOPROLOL TARTRATE 25 MG TAB PO SCH ×2 (08:17→21:57)
[2022-04-09] MEDS: ENOXAPARIN INJ 40 MG/0.4 ML SYR SQ SCH ×2 (08:17→21:56)
[2022-04-09] MEDS: POT PHOSPHATE MONOBASIC W/ SOD TAB PO SCH ×4 (08:17→21:56)
[2022-04-09 09:41] LABS: BUN Creatinine Ratio 27.7 (10-20); Creatinine Clr Calc Pharmacy 162.1 ml/min; Est GFR (African American) 123.6 ml/min; Est GFR (Non-African American) 106.6 ml/min; Magnesium 1.5 mg/dl (1.7-2.4); Potassium 3.7 mmol/L (3.5-5.1)
[2022-04-09] MEDS: FUROSEMIDE 40 MG/4 ML VIAL IV SCH (09:55)
[2022-04-09] MEDS: MAGNESIUM SULFATE / D5W 1 GM/100 ML BAG IV SCH ×3 (10:04→13:50)
--- NOTE | 2022-04-09 20:49 | Hospitalist Progress Note ---
Date of Service April 09, 2022 Assessment & Plan (1) Acute diastolic (congestive) heart failure: Plan: improved with lasix 40mg IV BID she now has contraction alkalosis and diuresis has slowed considerably she has lost 10-11kg of weight since admission suspect we are approaching euvolemia stop IV lasix remove gandara cont metoprolol 12.5mg BID recent echo -- EF technically preserved but low-normal at 50-55% RV function preserved CT imaging with ?cirrhosis which could be contributing to volume status issues TSH wnl although she has mod-severe I am uncertain if this is contributing to decompensated CHF while here will need cardiology consultation - good candidate for CHF clinic BMP am consider aldactone given concomitant cirrhosis (2) Acute hypoxemic respiratory failure: Plan: 2nd to pulmonary edema from #1 resolved O2 weaned off (3) Bacteremia: Plan: 2nd MSSA, likely source being the skin on lower extremities (multiple open ulcers/sores) repeat blood cultures 04/06 and 04/08 thus far negative to date echo without obvious valvular vegetations will need at least 2 weeks of Rx currently on ancef 2gm IV q8h will obtain ID consultation tomorrow (4) Morbid obesity with BMI of 50.0-59.9, adult: Plan: BMI about 49 today (5) Aortic stenosis: Plan: mod-severe valve area 1.1cm^2 cards f/u needed (6) Type 2 diabetes mellitus: Plan: new-onset Hba1c 10.5% control improved with basal/bolus (lantus/novolog) consider addition of metformin at discharge - metformin + lantus? (7) Hypomagnesemia: Plan: replaced resolved now low again IV mag with repeat level am (8) Hypokalemia: Plan: improved cont replacement (9) Skin lesion: Plan: multiple, lower extremities due to falls, venous stasis, etc cont topical wound care (10) Acute metabolic encephalopathy: Plan: 2nd to hypoxia, bacteremia, etc - resolved (11) DVT prophylaxis: Plan: lovenox 40mg BID (12) Cirrhosis: Plan: ? of will obtain dedicated RUQ u/s tomorrow if present likely due to GALICIA given morbid obesity currently on lasix consider aldactone as well Plan PT/OT evals appreciated dispo uncertain due to IV abx and need for 14-day course of such? updated at bedside today Admission and Anticipated Discharge Date Admission Date: April 04, 2022 Subjective patient sitting at side of bed present today we had lengthy discussion about current problems & plan of care we discussed ?cirrhosis seen on imaging; she has no prior h/o heavy etoh use patient desires gandara removal only about 1000cc UOP today since 7am eating well minimal dyspnea with exertion feels much better hoping for home soon did well with PT today Review of Systems Review of Systems: gen - good appetite, no fatigue cv - no orthopnea pulm - no cough GI - no nausea, emesis, abd pain Physical Exam Physical Exam: gen - morbidly obese, NAD; pleasant; looks good today mouth - MMM; poor dentition neck - no obvious JVD heart - RRR, s1 s2, 2/6 systolic murmur RUSB lungs - faint/scant b/l basilar rales, decreased BS bases; no wheeze; no increased work of breathing abd - soft NT ND BS+ ext - 1+ edema from feet to the thighs, pulses 2+ b/l skin - multiple ulcerations b/l shins; b/l knee lesions from prior falls unchanged Results & Data Results & Data ([facility]) Vital Signs (Past 12 Hours) Vital Signs Temp Pulse Pulse Resp BP Pulse Ox O2 Del Method 04/09/22 19:13 36.7 C 90 18 157/81 H 92 Room Air 04/09/22 15:00 87 04/09/22 15:37 36.6 C 84 17 108/70 92 Room Air 04/09/22 11:16 36.5 C 88 17 113/69 95 Nasal Cannula O2 Flow Rate 04/09/22 19:13 04/09/22 15:00 04/09/22 15:37 04/09/22 11:16 2 Laboratory Results Laboratory Results - last 24 hr 04/09/22 04/09/22 04/09/22 07:29 07:31 11:13 Sodium 141 Potassium 3.7 Chloride 96 L Carbon Dioxide 40 H Anion Gap 5 BUN 13 Creatinine 0.47 L Est Cr Clr Drug Dosing 162.1 Est GFR ( Amer) 123.6 Est GFR (Non-Af Amer) 106.6 BUN/Creatinine Ratio 27.7 H Glucose 166 H POC Glucose 170 H 176 H Calcium 8.0 L Magnesium 1.5 L 04/09/22 04/09/22 16:21 20:44 Sodium Potassium Chloride Carbon Dioxide Anion Gap BUN Creatinine Est Cr Clr Drug Dosing Est GFR ( Amer) Est GFR (Non-Af Amer) BUN/Creatinine Ratio Glucose POC Glucose 174 H 134 H Calcium Magnesium PG Care Time/CCT Total # of Minutes Spent Total Time Spent with Patient: Total time spent is greater than 50% in coordination of care (as documented) at patient's floor/unit and/or counseling patient: Coding Level of Care Code 58269 Subseq Hosp Care Lvl 3 Diagnoses Acute diastolic (congestive) heart failure I50.31 Acute hypoxemic respiratory failure J96.01 Bacteremia R78.81 Morbid obesity with BMI of 50.0-59.9, adult E66.01; Z68.43 Aortic stenosis I35.0 Type 2 diabetes mellitus E11.9 Hypomagnesemia E83.42 Hypokalemia E87.6 Skin lesion L98.9 Acute metabolic encephalopathy G93.41 DVT prophylaxis Z29.9 Cirrhosis K74.60
[2022-04-09] MEDS: MAGNESIUM OXIDE 400 MG TAB PO SCH (21:58)
[2022-04-10] MEDS ORDERED: MELATONIN 3 MG TAB PO ONE (01:04)
[2022-04-10] MEDS: ceFAZolin 2000MG 2,000 MG/15 ML SYR IV SCH ×3 (01:09→17:12)
[2022-04-10] MEDS: MELATONIN 3 MG TAB PO PRN (01:09)
[2022-04-10] MEDS: ACETAMINOPHEN 500 MG TAB PO SCH ×3 (05:24→20:46)
[2022-04-10 06:42] LABS: BUN Creatinine Ratio 27.3 (10-20); Calcium 7.9 mg/dl (8.5-10.1); Est GFR (African American) 126.3 ml/min; Est GFR (Non-African American) 108.9 ml/min; Potassium 3.3 mmol/L (3.5-5.1)
[2022-04-10] MEDS: ENOXAPARIN INJ 40 MG/0.4 ML SYR SQ SCH ×2 (08:48→20:47)
[2022-04-10] MEDS: INSULIN ASPART PER UNIT SC SCH ×4 (08:48→21:16)
[2022-04-10] MEDS: METOPROLOL TARTRATE 25 MG TAB PO SCH ×2 (08:49→20:47)
[2022-04-10] MEDS: LANTUS PER UNIT CHARGE SQ SCH ×2 (08:49→20:52)
[2022-04-10] MEDS: MAGNESIUM OXIDE 400 MG TAB PO SCH ×2 (08:49→20:47)
[2022-04-10] MEDS: POT PHOSPHATE MONOBASIC W/ SOD TAB PO SCH ×4 (08:49→20:47)
[2022-04-10] MEDS ORDERED: POTASSIUM CHLORIDE CRTAB 20 MEQ TABCR PO STA (09:03)
[2022-04-10] MEDS ORDERED: SPIRONOLACTONE 12.5 MG TAB PO SCH (09:15)
[2022-04-10] MEDS: FUROSEMIDE 40 MG TAB PO SCH (10:18)
--- NOTE | 2022-04-10 11:25 | Ultrasound Report ---
ABDOMINAL ULTRASOUND, RIGHT UPPER QUADRANT HISTORY: Abnormal CT. Follow-up. ?cirrhosis. COMPARISON: Abdomen and pelvis CT 04/04/2022. FINDINGS: Pancreas: The pancreas demonstrates a normal echotexture. Liver: Nodular contour to the liver consistent with cirrhosis. The liver measures 24 cm in length. No hepatic masses. Gallbladder: No gallbladder wall thickening. No gallstones. CBD: 4 mm. Right kidney: No hydronephrosis. IMPRESSION: 1. Cirrhotic and enlarged liver. 2. Normal gallbladder. No gallstones. ACT 112: Negative or not required by law. Electronically signed by: Dino Goldman M.D. 04/10/2022 11:23 AM
--- NOTE | 2022-04-10 19:33 | Hospitalist Progress Note ---
Date of Service April 10, 2022 Assessment & Plan (1) Acute diastolic (congestive) heart failure: Plan: significantly improved with prior IV diuresis she has lost 10-11kg of weight since admission we are near-euvolemia IV lasix stopped start lasix 40mg po qam start aldactone 12.5mg po qam (due to concomitant cirrhosis) cont metoprolol 12.5mg BID recent echo -- EF technically preserved but low-normal at 50-55% RV function preserved CT imaging with ?cirrhosis which could be contributing to volume status issues u/s of liver today confirms cirrhosis - GALICIA? TSH wnl although she has mod-severe I am uncertain if this is contributing to decompensated CHF while here will need cardiology consultation - good candidate for CHF clinic BMP am mag am (2) Acute hypoxemic respiratory failure: Plan: 2nd to pulmonary edema from #1 resolved O2 weaned off (3) Bacteremia: Plan: 2nd MSSA, likely source being the skin on lower extremities (multiple open ulcers/sores) repeat blood cultures 04/06 and 04/08 thus far negative to date echo without obvious valvular vegetations but has mod-severe will need at least 2 weeks of Rx currently on ancef 2gm IV q8h ID consult placed I did speak with on-call ID physician He recommended in light of her mod-severe JILLIAN to definitively exclude SBE if JILLIAN negative then 2 weeks of IV ancef if JILLIAN can't be pursued then possibly 4 weeks+ of abx advised formal consult to follow on Tuesday (4) Morbid obesity with BMI of 50.0-59.9, adult: Plan: BMI about 49 today (5) Aortic stenosis: Plan: mod-severe valve area 1.1cm^2 cards f/u needed (6) Type 2 diabetes mellitus: Plan: new-onset Hba1c 10.5% control improved with basal/bolus (lantus/novolog) adjust lantus again for more optimal control consider addition of metformin at discharge - metformin + lantus? (7) Hypomagnesemia: Plan: replaced resolved (8) Hypokalemia: Plan: improved but still low cont replacement (9) Skin lesion: Plan: multiple, lower extremities due to falls, venous stasis, etc cont topical wound care (10) Acute metabolic encephalopathy: Plan: 2nd to hypoxia, bacteremia, etc - resolved (11) DVT prophylaxis: Plan: lovenox 40mg BID (12) Cirrhosis: Plan: CT and RUQ u/s both suggest cirrhotic appearing liver suspect fatty liver for many years which is likely now GALICIA HepC negative Check HepBsAg, etc Will need GI f/u for this Lasix/aldactone for volume control Plan PT/OT evals appreciated dispo uncertain due to IV abx updated at bedside yesterday Admission and Anticipated Discharge Date Admission Date: April 04, 2022 Subjective patient w/o complaints feels good no dyspnea occasionally needing 2 L NC O2 tele overnight with NSR we discussed her liver u/s showing cirrhosis no h/o hepatitis no h/o etoh use discussed with her what ID recommended by phone (JILLIAN) Review of Systems Review of Systems: gen - no fever cv - no chest pain, no orthopnea pulm - no cough or dyspnea GI - no abd pain or nausea Physical Exam Physical Exam: gen - morbidly obese, NAD; pleasant mouth - MMM; poor dentition neck - no obvious JVD heart - RRR, s1 s2, 2/6 systolic murmur RUSB lungs - minimal dry rales bases, decreased BS bases; no wheeze; no increased work of breathing abd - soft NT ND BS+ ext - 1+ edema from feet to the thighs, pulses 2+ b/l skin - multiple ulcerations b/l shins worst ulcer on L martins; b/l knee lesions from prior falls unchanged Results & Data Results & Data ([facility]) Vital Signs (Past 12 Hours) Vital Signs Temp Pulse Pulse Resp BP BP Pulse Ox 04/10/22 19:16 36.5 C 87 17 106/69 95 04/10/22 15:00 79 04/10/22 08:00 79 04/10/22 15:48 36.6 C 85 18 107/69 95 04/10/22 08:00 04/10/22 11:31 36.4 C L 76 18 102/69 94 O2 Del Method O2 Flow Rate 04/10/22 19:16 Nasal Cannula 2 04/10/22 15:00 04/10/22 08:00 04/10/22 15:48 Nasal Cannula 2 04/10/22 08:00 Nasal Cannula 2 04/10/22 11:31 Nasal Cannula 2 Laboratory Results Laboratory Results - last 24 hr 04/09/22 04/10/22 04/10/22 20:44 05:41 07:14 Sodium 139 Potassium 3.3 L Chloride 95 L Carbon Dioxide 40 H Anion Gap 4 BUN 12 Creatinine 0.44 L Est Cr Clr Drug Dosing 173.0 Est GFR ( Amer) 126.3 Est GFR (Non-Af Amer) 108.9 BUN/Creatinine Ratio 27.3 H Glucose 178 H POC Glucose 134 H 176 H Calcium 7.9 L Magnesium 2.0 04/10/22 04/10/22 11:30 16:31 Sodium Potassium Chloride Carbon Dioxide Anion Gap BUN Creatinine Est Cr Clr Drug Dosing Est GFR ( Amer) Est GFR (Non-Af Amer) BUN/Creatinine Ratio Glucose POC Glucose 148 H 121 H Calcium Magnesium PG Care Time/CCT Total # of Minutes Spent Total Time Spent with Patient: Total time spent is greater than 50% in coordination of care (as documented) at patient's floor/unit and/or counseling patient: Coding Level of Care Code 66973 Subseq Hosp Care Lvl 2 Diagnoses Acute diastolic (congestive) heart failure I50.31 Acute hypoxemic respiratory failure J96.01 Bacteremia R78.81 Morbid obesity with BMI of 50.0-59.9, adult E66.01; Z68.43 Aortic stenosis I35.0 Type 2 diabetes mellitus E11.9 Hypomagnesemia E83.42 Hypokalemia E87.6 Skin lesion L98.9 Acute metabolic encephalopathy G93.41 DVT prophylaxis Z29.9 Cirrhosis K74.60
[2022-04-11] MEDS: ceFAZolin 2000MG 2,000 MG/15 ML SYR IV SCH ×3 (02:45→17:18)
[2022-04-11] MEDS: ACETAMINOPHEN 500 MG TAB PO SCH (03:51)
[2022-04-11 07:55] LABS: BUN Creatinine Ratio 28.9 (10-20); Calcium 8.2 mg/dl (8.5-10.1); Creatinine Clr Calc Pharmacy 169.2 ml/min; Est GFR (African American) 125.3 ml/min; Est GFR (Non-African American) 108.1 ml/min; Potassium 3.5 mmol/L (3.5-5.1)
[2022-04-11] MEDS: ENOXAPARIN INJ 40 MG/0.4 ML SYR SQ SCH ×2 (08:13→20:27)
[2022-04-11] MEDS: METOPROLOL TARTRATE 25 MG TAB PO SCH ×2 (08:14→20:29)
[2022-04-11] MEDS: FUROSEMIDE 40 MG TAB PO SCH (08:14)
[2022-04-11] MEDS: MAGNESIUM OXIDE 400 MG TAB PO SCH ×2 (08:14→20:28)
[2022-04-11] MEDS: POT PHOSPHATE MONOBASIC W/ SOD TAB PO SCH ×4 (08:14→20:28)
[2022-04-11] MEDS: LANTUS PER UNIT CHARGE SQ SCH ×2 (08:23→20:37)
[2022-04-11] MEDS: INSULIN ASPART PER UNIT SC SCH ×4 (08:23→20:19)
[2022-04-11] MEDS: SPIRONOLACTONE 25 MG TAB PO SCH (08:56)
[2022-04-11] MEDS: POTASSIUM CHLORIDE CRTAB 20 MEQ TABCR PO SCH (09:38)
[2022-04-11] MEDS: ACETAMINOPHEN 500 MG TAB PO PRN (20:28)
[2022-04-11] MEDS: MELATONIN 3 MG TAB PO PRN (22:35)
[2022-04-12] MEDS: ceFAZolin 2000MG 2,000 MG/15 ML SYR IV SCH ×3 (02:04→17:13)
--- NOTE | 2022-04-12 05:54 | Hospitalist Progress Note ---
Date of Service April 11, 2022 Assessment & Plan (1) Acute diastolic (congestive) heart failure: Plan: resolved s/p IV diuresis most of the stay - transitioned to PO abx 2 days ago she has lost 10-11kg+ of weight since admission has LE edema, but otherwise appears euvolemic cont lasix 40mg daily increase aldactone (due to cirrhosis) to 25mg daily increase metoprolol to 25mg BID recent echo -- EF technically preserved but low-normal at 50-55% RV function preserved CT and u/s of liver confirm presence of cirrhotic appearing liver (see below) TSH wnl although she has mod-severe I am uncertain if this is contributing to decompensated CHF while here will need cardiology consultation - good candidate for CHF clinic BMP am (2) Acute hypoxemic respiratory failure: Plan: 2nd to pulmonary edema from #1 resolved O2 weaned off (3) Bacteremia: Plan: 2nd MSSA, likely source being the skin on lower extremities (multiple open ulcers/sores) repeat blood cultures 04/06 and 04/08 thus far negative to date echo without obvious valvular vegetations but has mod-severe will need at least 2 weeks of Rx currently on ancef 2gm IV q8h ID consult placed - will take place Tuesday I did speak with on-call ID physician 04/10 He recommended in light of her mod-severe JILLIAN to definitively exclude SBE if JILLIAN negative then 2 weeks of IV ancef if JILLIAN can't be pursued then possibly 4-6 weeks+ of abx advised formal consult to follow on Tuesday I spoke with on-call cardiology about JILLIAN - will make NPO tonight at midnight, hopeful for JILLIAN tomorrow Hold am lovenox tomorrow am (4) Morbid obesity with BMI of 50.0-59.9, adult: Plan: BMI about 49 today (5) Aortic stenosis: Plan: mod-severe valve area 1.1cm^2 cards f/u needed JILLIAN tomorrow or Tuesday (6) Type 2 diabetes mellitus: Plan: new-onset Hba1c 10.5% control improved with basal/bolus (lantus/novolog) consider addition of metformin at discharge - metformin + lantus? (7) Hypomagnesemia: Plan: replaced resolved (8) Hypokalemia: Plan: replaced resolved (9) Skin lesion: Plan: multiple, lower extremities due to falls, venous stasis, etc cont topical wound care (10) Acute metabolic encephalopathy: Plan: 2nd to hypoxia, bacteremia, etc - resolved (11) DVT prophylaxis: Plan: lovenox 40mg BID hold starting in am for possible JILLIAN (12) Cirrhosis: Plan: CT and RUQ u/s both suggest cirrhotic appearing liver suspect fatty liver for many years which is likely now GALICIA HepC negative Check HepBsAg, etc Will need GI f/u for this Lasix/aldactone for volume control (13) Pressure ulcers of skin of multiple topographic sites: Plan: Pressure ulcer of left buttock, at least stage 3, POA Pressure ulcer of L lateral ankle, at least stage 3, POA Pressure ulcer of R lateral ankle, stage 2, POA Wound care has seen - appreciate recommendations Plan PT/OT evals appreciated dispo uncertain due to IV abx updated at bedside today Admission and Anticipated Discharge Date Admission Date: April 04, 2022 Subjective patient w/o complaints hoping for d/c home soon at bedside during the visit feels good denies any dyspnea or [place] denies PND/orthopnea eating well drinking well ambulating no new issues Review of Systems Review of Systems: gen - feels good cv - no chest pain or orthopnea pulm - no cough GI - no abd pain/N/V - voiding adequately Physical Exam Physical Exam: gen - morbidly obese, NAD; pleasant, sitting at side of bed mouth - MMM; poor dentition neck - no obvious JVD heart - RRR, s1 s2, 2/6 systolic murmur RUSB lungs - decreased BS bases; no wheeze; no increased work of breathing abd - soft NT ND BS+ ext - 1+ edema from feet to the knees, pulses 2+ b/l skin - multiple ulcerations b/l shins worst ulcer on L martins; b/l knee lesions from prior falls unchanged; optifoams in place multiple locations psych - a/o x 3 Results & Data Results & Data ([facility]) Vital Signs (Past 12 Hours) Vital Signs Temp Pulse Pulse Resp BP BP Pulse Ox 04/12/22 02:39 36.4 C L 85 16 108/58 L 90 04/11/22 22:16 82 04/11/22 19:30 04/11/22 22:55 36.8 C 74 20 102/61 93 04/11/22 19:28 36.5 C 99 H 18 123/74 92 O2 Del Method 04/12/22 02:39 Room Air 04/11/22 22:16 04/11/22 19:30 Room Air 04/11/22 22:55 Room Air 04/11/22 19:28 Room Air Laboratory Results Laboratory Results - last 24 hr 04/11/22 04/11/22 04/11/22 07:10 07:10 07:27 Sodium 137 Potassium 3.5 Chloride 95 L Carbon Dioxide 38 H Anion Gap 4 BUN 13 Creatinine 0.45 L Est Cr Clr Drug Dosing 169.2 Est GFR ( Amer) 125.3 Est GFR (Non-Af Amer) 108.1 BUN/Creatinine Ratio 28.9 H Glucose 106 H POC Glucose 113 H Calcium 8.2 L Magnesium 2.0 Hepatitis B Ab, Qual Pending Hep Bs Antigen Pending Hep Bs Ag Confirmation Pending Hep B Core Total Ab Pending 04/11/22 04/11/22 04/11/22 11:11 16:24 20:11 Sodium Potassium Chloride Carbon Dioxide Anion Gap BUN Creatinine Est Cr Clr Drug Dosing Est GFR ( Amer) Est GFR (Non-Af Amer) BUN/Creatinine Ratio Glucose POC Glucose 163 H 142 H 106 H Calcium Magnesium Hepatitis B Ab, Qual Hep Bs Antigen Hep Bs Ag Confirmation Hep B Core Total Ab PG Care Time/CCT Total # of Minutes Spent Total Time Spent with Patient: Total time spent is greater than 50% in coordination of care (as documented) at patient's floor/unit and/or counseling patient: Coding Level of Care Code 02552 Subseq Hosp Care Lvl 3 Diagnoses Acute diastolic (congestive) heart failure I50.31 Acute hypoxemic respiratory failure J96.01 Bacteremia R78.81 Morbid obesity with BMI of 50.0-59.9, adult E66.01; Z68.43 Aortic stenosis I35.0 Type 2 diabetes mellitus E11.9 Hypomagnesemia E83.42 Hypokalemia E87.6 Skin lesion L98.9 Acute metabolic encephalopathy G93.41 DVT prophylaxis Z29.9 Cirrhosis K74.60 Pressure ulcers of skin of multiple topographic sites L89.90
[2022-04-12 06:25] LABS: Hematocrit (blood only) 34.8 % (34.1-44.9); Hemoglobin 11.8 g/dl (12.0-16.0); Mean Corpuscular Hemoglobin 31.6 pg (25.0-34.0); Mean Corpuscular Hgb Conc 33.9 g/dL (32.0-36.0); Mean Platelet Volume 9.6 fL (9.4-12.3); Platelet Count 328 K/uL (130-400); RDW Coefficient of Variation 13.7 % (11.5-14.5); RDW Standard Deviation 46.4 fL (36.4-46.3); Red Blood Count 3.74 M/uL (3.93-5.22); White Blood Count 10.84 K/ul (4.8-10.8)
[2022-04-12 06:37] LABS: Prothrombin Time 10.8 Seconds (9.0-12.0)
[2022-04-12 06:51] LABS: BUN Creatinine Ratio 35.1 (10-20); Calcium 8.2 mg/dl (8.5-10.1); Est GFR (African American) 133.7 ml/min; Est GFR (Non-African American) 115.3 ml/min; Potassium 3.7 mmol/L (3.5-5.1)
[2022-04-12] MEDS: INSULIN ASPART PER UNIT SC SCH ×4 (07:58→20:44)
[2022-04-12] MEDS: LANTUS PER UNIT CHARGE SQ SCH (08:07)
--- NOTE | 2022-04-12 09:33 | Infectious Disease Consult ---
Date of Consultation April 12, 2022 Assessment & Plan (1) MSSA bacteremia: Plan 61 yo F with morbid obesity who has not sought medical care in 30 years who presented on 04/04 with AMS and shortness of breath, 2 weaks of progressive weakness, noted to have fever, hypoxia, leukocytosis, diagnosed with MSSA bacteremia, congestive heart failure with pulmonary edema, diabetes, aortic stenosis, cirrhotic-appearing liver. The source of her MSSA bacteremia is thought to be her skin, as she has multiple ulcerations over bilateral lower extremities. She has improved with diuresis and antibiotics. Currently on cefazolin. A TTE showed mod-severe aortic stenosis and low normal EF 50-55%. No signs of MSSA seeding other locations--mental status has improved, has good joint ROM, no focal pains. Repeat blood cultures from 04/06 are negative. We discussed that in the setting of her mod-severe , would suggest a JILLIAN to fully rule out endocarditis. If there are no vegetations, she can complete a 2 week course of cefazolin. If however she does not undergo JILLIAN, would favor a longer duration of IV antibiotics to be more conservative. The pt stated that she does not want to undergo a JILLIAN. I discussed her the risks of penitentiary IV antibiotics, including risk of infection with a PICC and adverse side effects of antibiotics. Pt expressed understanding and still did not want a JILLIAN. Recommendations: -Continue cefazolin 2 g IV q8h -Needs PICC placement -As pt strongly declines JILLIAN to rule out endocarditis, would favor a longer duration of IV antibiotics to be conservative. Would treat for 6 week duration from 04/06-05/17. -Please check weekly CBC with diff, CMP while on cefazolin to monitor for antimicrobial toxicity and send results to patient's primary team. -Please arrange for follow-up with ID locally in 2-3 weeks -Will sign off. Please page with any further questions. Consultation Information Consultation was provided via telemedicine using two-way real-time interactive telecommunication between the patient and the telemedicine provider. For the duration of the visit, the provider was performing the assessment from a different facility than the patient. This includesuse of bluetooth stethoscope forauscultationperformed by the telepresenter that the telemedicine provider can hear if described in the physical exam. [employer] contact information: Please call [facility] [phone]. (Phone Number For Physician Use Only) After establishing a telemedicine visit, patient was: Patient was verified with two unique identifiers, Patient/authorized rep acknowledged consent and understanding and Gave permission to continue telehealth session Time Spent w Inpatient: 20 minutes History of Present Illness Reason for Consultation: MSSA bacteremia Attending Physician: Ayden Machado History of Present Illness 61 yo F with morbid obesity who presented on 04/04 with AMS and shortness of breath and 2 weeks of progressive weakness. She reportedly had not sought medical care in about 30 years and had no other known PMH and was not on medications. She complained of lower extremity edema and drainage from her legs. She was noted to have ulcerations all over her body. On presentation, she had temp of 37.4, HR 119, BP 152/93 which decreased to 80s/40s, RR 33, O2 sat 84% requiring BiPAP. Labs showed WBC 23.6, procalcitonin 1.87. COVID-19, flu, and RSV negative. Trop 32, BNP 766. CXR showed diffuse interstitial thickening favoring pulmonary edema, R hilar enlargement. CT A/P with contrast showed anasarca, hepatomegaly with concern for possible cirrhosis, cardiomegaly and probably pulmonary edema. A CTA chest was compromised by motion artifact but no PE was identified, moderate cardiomegaly with suspected pulmonary edema, and multifocal airspace opacities throughout the lungs, majority likely reflecting atelectasis but cannot exclude multifocal pneumonia. A head CT was compromised by motion artifact but had no acute intracranial findings. Blood cultures were collected. She was given vanc and zosyn in the ED. A central line was placed. She did become febrile to 38.1 on 04.05. She was initially admitted to the ICU, but did not require pressors and was transferred to the PCU same day of admission. Her respiratory and mental status improved and she was started on IV furosemide for pulmonary edema. A TTE showed mod-severe aortic stenosis and low normal EF 50-55%. A1c 10.5. Blood cultures were positive for MSSA. Her central line was removed on 04/07. The source was thought to be her skin, given her multiple ulcerations. She was s witched to cefazolin 2 g IV q8h. Today, pt reports feeling much better. She feels her mental status is back to normal. Denies any hardware in her body or history of IVDU. Reports chronic joint pains, but no worse than usual, with good ROM of her joints. Pt states she does not want to undergo JILLIAN. Allergies Allergy/AdvReac Type Severity Reaction Status Date / Time No Known Allergies Allergy Unverified 04/04/22 09:54 Home Medications Medication Instructions Recorded Confirmed Type No Known Home Medications 04/04/22 04/04/22 History Patient History Social History Smoking Status: Never smoker Second Hand Exposure: No; Hx Alcohol Use: No Hx Substance Use: No Preferred Language: Palestinian Communication Ability: Effective Heat Curer Required: No Beliefs That Will Affect Care: None marital status: Current Living Situation: Spouse Feels Safe at Home: Yes Assistive Devices: Cane Review of System A complete ROS was performed and is negative except as mentioned in the HPI. Physical Exam Physical Exam: GEN: Well-appearing, in NAD. HEENT: Normocephalic, atraumatic. RESP: No increased work of breathing, on room air SKIN: Multiple ulcerations of bilateral shins, knees. Ulceration on R elbow. MSK: good ROM of joints, no focal joint erythema or swelling NEURO: Alert and oriented. Answers all questions appropriately. Speech not slurred. PSYCH: Normal mood, affect appropriate. Results & Data ([facility]) Vital Signs (Past 12 Hours) Vital Signs Temp Pulse Pulse Resp BP BP Pulse Ox 04/12/22 07:06 36.7 C 87 17 110/66 93 04/12/22 02:39 36.4 C L 85 16 108/58 L 90 04/11/22 22:16 82 04/11/22 22:55 36.8 C 74 20 102/61 93 O2 Del Method 04/12/22 07:06 Room Air 04/12/22 02:39 Room Air 04/11/22 22:16 04/11/22 22:55 Room Air Laboratory Results Short CBC 04/12/22 Range/Units 05:53 WBC 10.84 H (4.8-10.8) K/ul Hgb 11.8 L (12.0-16.0) g/dl Hct 34.8 (34.1-44.9) % Plt Count 328 (130-400) K/uL BMP 04/12/22 05:53 Sodium 138 Potassium 3.7 Chloride 97 L Carbon Dioxide 35 H BUN 13 Creatinine 0.37 L Glucose 112 H Calcium 8.2 L Diagnostic Findings Radiology: Gallbladder Ultrasound 04/10/22 07:30 ABDOMINAL ULTRASOUND, RIGHT UPPER QUADRANT HISTORY: Abnormal CT. Follow-up. ?cirrhosis. COMPARISON: Abdomen and pelvis CT 04/04/2022. FINDINGS: Pancreas: The pancreas demonstrates a normal echotexture. Liver: Nodular contour to the liver consistent with cirrhosis. The liver measures 24 cm in length. No hepatic masses. Gallbladder: No gallbladder wall thickening. No gallstones. CBD: 4 mm. Right kidney: No hydronephrosis. IMPRESSION: 1. Cirrhotic and enlarged liver. 2. Normal gallbladder. No gallstones. 04/[address] FINDINGS: Vascular opacification suboptimal. This exam was mildly compromised given difficulty positioning. Severe left knee osteoarthritis is present with joint space narrowing and osteophytosis. A small popliteal cyst is noted. There is no acute fracture within the left tibia or fibula. There is no evidence for acute osteomyelitis within the left tibia or fibula. Extensive subcutaneous edema of the left lower leg, ankle and visualized portions of the foot are present. There is no fluid collection to suggest abscess or hematoma. Talar dome is intact. Extensive vascular calcification is incidentally noted. IMPRESSION: 1. No acute fracture. No evidence for acute osteomyelitis within the left tibia or fibula. 2. Extensive subcutaneous fluid of the left lower leg, ankle and foot. This could reflect edema or cellulitis. No fluid collection to suggest abscess. 3. Severe left knee osteoarthritis. Small popliteal cyst. 4. Extensive vascular calcification. 04/04 CTA chest 1. Exam significantly compromised by motion artifact. No pulmonary emboli identified although segmental and subsegmental pulmonary arteries suboptimally assessed. 2. Moderate cardiomegaly. Small right and trace left pleural effusions. Suspected pulmonary edema. 3. Multifocal airspace opacities throughout the lungs. The majority of these likely reflect atelectasis. However, multifocal pneumonia cannot be excluded. 04/04 CT A/P 1. Exam moderately compromised by artifact. 2. No bowel obstruction. No bowel wall thickening. 3. Anasarca. Trace ascites. No fluid collection to suggest abscess. 4. Hepatomegaly. Suspected nodularity of the liver surface raises the possibility of cirrhosis. 5. Cardiomegaly. Small right and trace left pleural effusion with probable pulmonary edema. A superimposed infectious process cannot be excluded within the lungs. Microbiology: 04/08 BCx x2: NGTD 04/07 Catheter tip culture: NG 04/06 BCx x2: NG 04/04 BCx x2: MSSA in 4/4 vials (S clinda, tetra, TMP/SMX) Medications Administered Current Inpatient Medications Acetaminophen (Acetaminophen 500 Mg Tab) 1,000 mg PO Q6H PRN PRN Reason: pain or T>38 Stop: 05/11/22 07:46 Last Admin: 04/11/22 20:28 Dose: 1,000 mg Dextrose (Dextrose 50% 50 Ml Syringe) 25 - 50 ml IV UD PRN; Protocol PRN Reason: Hypoglycemia Protocol Stop: 05/04/22 18:29 Enoxaparin Sodium (Enoxaparin Inj 40 Mg/0.4 Ml Syr) 40 mg SQ Q12H ERAN Stop: 05/09/22 08:59 Last Admin: 04/11/22 20:27 Dose: 40 mg Furosemide (Furosemide 40 Mg Tab) 40 mg PO QAM ERAN Stop: 05/10/22 09:14 Last Admin: 04/11/22 08:14 Dose: 40 mg Glucagon (Glucagon For Inj 1 Mg Vial) 1 mg IM UD PRN; Protocol PRN Reason: Hypoglycemia Protocol Stop: 05/04/22 18:29 Glucose (Glucose 40% Gel 15 Gm Tube) 15 - 30 gm PO UD PRN; Protocol PRN Reason: Hypoglycemia Protocol Stop: 05/04/22 18:29 Glucose (Glucose 10 Tab/Tube) 4 - 8 tab PO UD PRN; Protocol PRN Reason: Hypoglycemia Protocol Stop: 05/04/22 18:29 Cefazolin Sodium (Ancef 2000mg) 2,000 mg in 15 mls @ 3.75 mls/min IV Q8H ERAN; Protocol Stop: 04/19/22 09:59 Last Admin: 04/12/22 02:04 Dose: 3.75 mls/min Insulin Aspart (Insulin Aspart Per Unit) 0 units SC ACHS [facility] Stop: 05/05/22 08:59 Last Admin: 04/12/22 07:58 Dose: Not Given Insulin Glargine (Lantus Per Unit Charge) 20 units SQ BID ERAN Stop: 05/10/22 20:59 Last Admin: 04/12/22 08:07 Dose: Not Given Magnesium Oxide (Magnesium Oxide 400 Mg Tab) 400 mg PO BID ERAN Stop: 05/09/22 20:59 Last Admin: 04/12/22 10:25 Dose: 400 mg Melatonin (Melatonin 3 Mg Tab) 3 mg PO HS PRN PRN Reason: Sleep Stop: 05/10/22 00:20 Last Admin: 04/11/22 22:35 Dose: 3 mg Metoprolol Tartrate (Metoprolol Tartrate 25 Mg Tab) 25 mg PO BID ERAN Stop: 05/11/22 20:59 Last Admin: 04/12/22 10:23 Dose: 25 mg Miscellaneous (Carbohydrates For Hypoglycemia ) 15 - 30 gm PO UD PRN PRN Reason: Hypoglycemia Treatment Stop: 05/04/22 18:29 Potassium Chloride (Potassium Chloride Crtab 20 Meq Tabcr) 20 meq PO QAM ERAN Stop: 05/11/22 08:59 Last Admin: 04/12/22 10:25 Dose: 20 meq Potassium Phosphate (Pot Phosphate Monobasic W/ Sod Tab) 1 tab PO QID ERAN Stop: 05/08/22 09:59 Last Admin: 04/12/22 10:25 Dose: 1 tab Spironolactone (Spironolactone 25 Mg Tab) 25 mg PO DAILY ERAN Stop: 05/11/22 08:59 Last Admin: 04/12/22 10:25 Dose: 25 mg
[2022-04-12] MEDS: METOPROLOL TARTRATE 25 MG TAB PO SCH ×2 (10:23→20:40)
[2022-04-12] MEDS: POTASSIUM CHLORIDE CRTAB 20 MEQ TABCR PO SCH (10:25)
[2022-04-12] MEDS: SPIRONOLACTONE 25 MG TAB PO SCH (10:25)
[2022-04-12] MEDS: MAGNESIUM OXIDE 400 MG TAB PO SCH ×2 (10:25→20:40)
[2022-04-12] MEDS: POT PHOSPHATE MONOBASIC W/ SOD TAB PO SCH ×4 (10:25→20:40)
[2022-04-12] MEDS: FUROSEMIDE 40 MG TAB PO SCH (11:51)
--- NOTE | 2022-04-12 13:39 | Hospitalist Progress Note ---
Date of Service April 12, 2022 Assessment & Plan (1) Acute diastolic (congestive) heart failure: Plan: resolved s/p IV diuresis most of the stay - transitioned to PO diuretics a few days ago she has lost 10-11kg+ of weight since admission has LE edema, but otherwise appears euvolemic cont lasix 40mg daily cont aldactone 25mg daily (due to cirrhosis) cont metoprolol 25mg BID recent echo -- EF technically preserved but low-normal at 50-55% RV function preserved CT and u/s of liver confirm presence of cirrhotic appearing liver (see below) TSH wnl although she has mod-severe I am uncertain if this is contributing to decompensated CHF BMP am patient wishes to establish care with [facility] in [place] - this is where her goes she will need f/u with the CHF clinic at [facility] (2) Acute hypoxemic respiratory failure: Plan: 2nd to pulmonary edema from #1 resolved O2 weaned off (3) Bacteremia: Plan: 2nd MSSA, likely source being the skin on lower extremities (multiple open ulcers/sores) repeat blood cultures 04/06 and 04/08 thus far negative to date echo without obvious valvular vegetations but has mod-severe currently on ancef 2gm IV q8h I had spoken with ID over the weekend who recommended JILLIAN ID customer service sales consultant today also recommended JILLIAN patient adamantly opposed to JILLIAN today in light of no JILLIAN to definitively rule out SBE ID has recommended total of 6 week course of IV ancef 2mg TID, first day of Rx 04/06/22 will need PICC PICC consent obtained; PICC team stated veins too small for PICC and to hydrate overnight reluctantly will give 1 L NS overnight and have PICC team try again in am I gave prescription for IV ancef to case management patient & aware they will HAVE TO LEARN IV ABX ADMINISTRATION TO SELF- ADMINISTER AT HOME, AND IT WILL BE TID DOSING FOR EFFECTIVELY 5 MORE WEEKS AT HOME SHE STATES SHE CAN DO THIS; SUPPORTIVE (4) Morbid obesity with BMI of 50.0-59.9, adult: Plan: BMI 49=50 (5) Aortic stenosis: Plan: mod-severe valve area 1.1cm^2 cards f/u needed - refer to [facility] CHF clinic (6) Type 2 diabetes mellitus: Plan: new-onset Hba1c 10.5% control improved with basal/bolus (lantus/novolog) requiring mod-large quantities of insulin to maintain euglycemia patient opposed to insulin therapy at home in preparation for d/c home will -- 1. stop lantus now 2. cont novolog for meal coverage while here 3. start meformin xr 500mg bid with meals she is unlikely to have good control with metformin alone consider adding januvia or consider adding jardiance or other agent (7) Hypomagnesemia: Plan: replaced resolved (8) Hypokalemia: Plan: replaced resolved (9) Skin lesion: Plan: multiple, lower extremities due to falls, venous stasis, etc cont topical wound care (10) Acute metabolic encephalopathy: Plan: 2nd to hypoxia, bacteremia, etc - resolved (11) DVT prophylaxis: Plan: lovenox 40mg BID (12) Cirrhosis: Plan: CT and RUQ u/s both suggest cirrhotic appearing liver suspect fatty liver for many years which is likely now GALICIA can't rule out cardiac cirrhosis but much less likely HepC negative Check HepBsAg, etc - pending Will need GI f/u for this - refer to [facility] Lasix/aldactone for volume control patient/ counseled that she has cirrhotic appearing liver on 2 imaging studies (13) Pressure ulcers of skin of multiple topographic sites: Plan: Pressure ulcer of left buttock, at least stage 3, POA Pressure ulcer of L lateral ankle, at least stage 3, POA Pressure ulcer of R lateral ankle, stage 2, POA Wound care has seen - appreciate recommendations Plan PT/OT joselyn appreciated cleared for home updated at bedside today plan at d/c - * referrals to [facility] office for PCP * [facility] * referral to [facility] GI for cirrhosis * if successful with PICC -- 5 more weeks of IV ancef; if PICC not successful -- peripherally inserted u/s-guided IV?? * lasix + aldactone, metoprolol * metformin xr + other PO agent for DM Admission and Anticipated Discharge Date Admission Date: April 04, 2022 Subjective patient was NPO for JILLIAN this am she got upset that it was "taking so long" and ultimately told nursing staff she was not going to pursue it and wished to eat JILLIAN canceled and NPO order lifted later in the AM she underwent ID consultation for her MSSA bacteremia ID recommended total of 2 weeks of IV abx if JILLIAN was negative, 6 weeks if JILLIAN was not completed I had lengthy discussion with the patient and her regarding rationale for JILLIAN, and if negative, she would not need a PICC line, she would not need 6 weeks of abx, and could leave much more promptly from the hospital despite explaining this at least twice she would not change her mind - "I'm not doing it" (the JILLIAN) I asked why she was so averse to the JILLIAN -- she explained that she was upset that the other day she was "waiting for her liver ultrasound, and then today I was waiting again [for the JILLIAN]" I then went into the risks of PICC line and again explained she would have to learn how to administer the abx herself and that it would be TID for 5+ weeks at home She still said no to the JILLIAN I asked her how he felt and he deferred the ultimate choice to his Again she said no to JILLIAN She apparently also told staff and the hospice educator previously she would NOT take insulin at home "I won't do it" (insulin) tele overnight wnl no other acute issues breathing wnl PICC consent obtained, PICC line ordered PICC team later in the day attempted PICC placement but veins too small they asked we hydrate her overnight and try PICC placement again tomorrow Review of Systems Review of Systems: gen - no fevers, no fatigue cv - no chest pain, no orthopnea pulm - no cough, no dyspnea at rest, no [place] GI - no abd pain, N/V Physical Exam Physical Exam: gen - morbidly obese, NAD mouth - MMM; poor dentition neck - no obvious JVD heart - RRR, s1 s2, 2/6 systolic murmur RUSB lungs - decreased BS bases; no wheeze; no increased work of breathing abd - soft NT ND BS+ ext - 1-2+ edema from feet to the knees, pulses 2+ b/l skin - multiple ulcerations b/l shins worst ulcer on L martins; b/l knee lesions f rom prior falls unchanged; optifoams in place multiple locations psych - a/o x 3 Results & Data Results & Data ([facility]) Vital Signs (Past 12 Hours) Vital Signs Temp Pulse Pulse Resp BP Pulse Ox O2 Del Method 04/12/22 08:00 85 04/12/22 10:43 36.8 C 87 20 122/81 97 Room Air 04/12/22 07:06 36.7 C 87 17 110/66 93 Room Air 04/12/22 02:39 36.4 C L 85 16 108/58 L 90 Room Air Laboratory Results Laboratory Results - last 24 hr 04/11/22 04/11/22 04/11/22 16:24 20:11 23:52 WBC RBC Hgb Hct MCV MCH MCHC RDW Std Deviation RDW Coeff of Chintan Plt Count MPV PT INR Sodium Potassium Chloride Carbon Dioxide Anion Gap BUN Creatinine Est Cr Clr Drug Dosing Est GFR ( Amer) Est GFR (Non-Af Amer) BUN/Creatinine Ratio Glucose POC Glucose 142 H 106 H 167 H Calcium 04/12/22 04/12/22 04/12/22 05:38 05:53 05:53 WBC 10.84 H RBC 3.74 L Hgb 11.8 L Hct 34.8 MCV 93.0 MCH 31.6 MCHC 33.9 RDW Std Deviation 46.4 H RDW Coeff of Chintan 13.7 Plt Count 328 MPV 9.6 PT 10.8 INR 1.0 Sodium Potassium Chloride Carbon Dioxide Anion Gap BUN Creatinine Est Cr Clr Drug Dosing Est GFR ( Amer) Est GFR (Non-Af Amer) BUN/Creatinine Ratio Glucose POC Glucose 109 H Calcium 04/12/22 04/12/22 05:53 11:19 WBC RBC Hgb Hct MCV MCH MCHC RDW Std Deviation RDW Coeff of Chintan Plt Count MPV PT INR Sodium 138 Potassium 3.7 Chloride 97 L Carbon Dioxide 35 H Anion Gap 6 BUN 13 Creatinine 0.37 L Est Cr Clr Drug Dosing 206.0 Est GFR ( Amer) 133.7 Est GFR (Non-Af Amer) 115.3 BUN/Creatinine Ratio 35.1 H Glucose 112 H POC Glucose 160 H Calcium 8.2 L PG Care Time/CCT Total # of Minutes Spent Total Time Spent with Patient: Total time spent is greater than 50% in coordination of care (as documented) at patient's floor/unit and/or counseling patient: Coding Level of Care Code 44382 Subseq Hosp Care Lvl 3 Diagnoses Acute diastolic (congestive) heart failure I50.31 Acute hypoxemic respiratory failure J96.01 Bacteremia R78.81 Morbid obesity with BMI of 50.0-59.9, adult E66.01; Z68.43 Aortic stenosis I35.0 Type 2 diabetes mellitus E11.9 Hypomagnesemia E83.42 Hypokalemia E87.6 Skin lesion L98.9 Acute metabolic encephalopathy G93.41 DVT prophylaxis Z29.9 Cirrhosis K74.60 Pressure ulcers of skin of multiple topographic sites L89.90
[2022-04-12] MEDS: ADVANCED PROBIOTIC 1250 MG CAPSULE PO SCH (15:49)
[2022-04-12] MEDS: PSYLLIUM or GUAR GUM FIBER POWDER PACKET PO SCH (15:50)
[2022-04-12] MEDS ORDERED: SODIUM CHLORIDE 0.9% 1000ML 1,000 ML IV SCH (19:00)
[2022-04-12] MEDS: ENOXAPARIN INJ 40 MG/0.4 ML SYR SQ SCH (20:39)
[2022-04-12] MEDS: metFORMIN HCL ER 500 MG TABCR PO SCH (20:39)
[2022-04-12] MEDS: ACETAMINOPHEN 500 MG TAB PO PRN (23:31)
[2022-04-12] MEDS: MELATONIN 3 MG TAB PO PRN (23:32)
[2022-04-13] MEDS: ceFAZolin 2000MG 2,000 MG/15 ML SYR IV SCH ×3 (01:37→17:17)
[2022-04-13 07:14] LABS: BUN Creatinine Ratio 21.8 (10-20); Calcium 8.1 mg/dl (8.5-10.1); Creatinine Clr Calc Pharmacy 141.2 ml/min; Est GFR (African American) 117.3 ml/min; Est GFR (Non-African American) 101.2 ml/min; Potassium 3.7 mmol/L (3.5-5.1)
[2022-04-13] MEDS: INSULIN ASPART PER UNIT SC SCH ×4 (08:25→20:37)
[2022-04-13] MEDS: ADVANCED PROBIOTIC 1250 MG CAPSULE PO SCH (08:30)
[2022-04-13] MEDS: METOPROLOL TARTRATE 25 MG TAB PO SCH ×2 (08:30→20:48)
[2022-04-13] MEDS: metFORMIN HCL ER 500 MG TABCR PO SCH ×2 (08:30→17:18)
[2022-04-13] MEDS: MAGNESIUM OXIDE 400 MG TAB PO SCH ×2 (08:30→20:47)
[2022-04-13] MEDS: POTASSIUM CHLORIDE CRTAB 20 MEQ TABCR PO SCH (08:30)
[2022-04-13] MEDS: ENOXAPARIN INJ 40 MG/0.4 ML SYR SQ SCH ×2 (08:31→20:46)
[2022-04-13] MEDS: PSYLLIUM or GUAR GUM FIBER POWDER PACKET PO SCH (08:31)
[2022-04-13] MEDS: POT PHOSPHATE MONOBASIC W/ SOD TAB PO SCH ×4 (08:31→20:48)
[2022-04-13 11:27] LABS: HBSAG NON-REACTIVE (NON-REACTIVE); Hepatitis B Core Antibody Total NON-REACTIVE (NON-REACTIVE)
--- NOTE | 2022-04-13 17:23 | Hospitalist Progress Note ---
Date of Service April 13, 2022 Assessment & Plan (1) Acute diastolic (congestive) heart failure: Plan: resolved s/p IV diuresis most of the stay - po diuretics placed on hold and given IVF hydration for PICC line placement--last dose 04/12--> restart lasix and bang ctone for tomorrow AM she had lost 10-11kg+ of weight since admission, but now weight back up 4 kg since yesterdya-unclear if accurate weight has LE edema, but otherwise appears euvolemic restart lasix 40mg daily and aldactone 25mg daily (due to cirrhosis) cont metoprolol 25mg BID recent echo -- EF technically preserved but low-normal at 50-55% RV function preserved CT and u/s of liver confirm presence of cirrhotic appearing liver (see below) TSH wnl although she has mod-severe I am uncertain if this is contributing to decompensated CHF Did receive 1 L NS on 04/12 for hydration to assist with PICC line placement which was difficult BMP am patient wishes to establish care with [facility] in [place] - this is where her goes she will need f/u with the CHF clinic at [facility] (2) Acute hypoxemic respiratory failure: Plan: 2nd to pulmonary edema from #1 resolved O2 weaned off (3) Bacteremia: Plan: 2nd MSSA, likely source being the skin on lower extremities (multiple open ulcers/sores) repeat blood cultures 04/06 and 04/08 thus far negative to date echo without obvious valvular vegetations but has mod-severe currently on ancef 2gm IV q8h ID safety and health consultant recommended JILLIAN-pt declined to have this done in light of no JILLIAN to definitively rule out SBE, ID has recommended total of 6 week course of IV ancef 2mg TID, first day of Rx 04/06/22 PICC placed 04/13 -awaiting CM to find [facility] for IV abx -will need once weekly labs while on IV abx and outpt ID f/u in 2-3 weeks if possible (4) Morbid obesity with BMI of 50.0-59.9, adult: Plan: BMI 49=50 (5) Aortic stenosis: Plan: mod-severe valve area 1.1cm^2 cards f/u needed - refer to [facility] CHF clinic (6) Type 2 diabetes mellitus: Plan: new-onset Hba1c 10.5% control improved with basal/bolus (lantus/novolog) requiring mod-large quantities of insulin to maintain euglycemia patient opposed to insulin therapy at home in preparation for d/c home have: 1. stopped lantus 2. cont novolog for meal coverage while here 3. started meformin xr 500mg bid with meals she is unlikely to have good control with metformin alone consider adding januvia or consider adding jardiance or other agent as outpt -will order testing supplies, CDE met with pt and gave her glucometer (7) Hypomagnesemia: Plan: replaced resolved dc po magnesium as is having loose stools (8) Hypokalemia: Plan: replaced resolved continue po lasix with lasix but watch BMP (9) Skin lesion: Plan: multiple, lower extremities due to falls, venous stasis, etc cont topical wound care (10) Acute metabolic encephalopathy: Plan: 2nd to hypoxia, bacteremia, etc - resolved (11) DVT prophylaxis: Plan: lovenox 40mg BID (12) Cirrhosis: Plan: CT and RUQ u/s both suggest cirrhotic appearing liver suspect fatty liver for many years which is likely now GALICIA can't rule out cardiac cirrhosis but much less likely HepC negative Check HepBsAg, etc - negative Will need GI f/u for this - refer to [facility]ald[facility]one for volume control patient/ counseled that she has cirrhotic appearing liver on 2 imaging studies (13) Pressure ulcers of skin of multiple topographic sites: Plan: Pressure ulcer of left buttock, at least stage 3, POA Pressure ulcer of L lateral ankle, at least stage 3, POA Pressure ulcer of R lateral ankle, stage 2, POA Wound care has seen - appreciate recommendations Plan PT/OT evals appreciated cleared for home plan at d/c - * referrals to [facility] [place] [facility] for [facility]CP * referral to [facility] * [facility] to [facility] for [facility] * PICC -- 5 more weeks of IV ancef * lasix + aldactone, metoprolol * metformin xr + other PO agent for DM Dispo-dc to home when home health able to be arranged for IV antibiotics- hopefully tomorrow. Downgrade to med/surg Admission and Anticipated Discharge Date Admission Date: April 04, 2022 Subjective Pt anxious to get home. COuldn't find home health yet today as per CM. She denies SOB,CP, abd pain. Is having 2 loose stools today, no blood. Tele with NSR, normal rates Review of Systems Review of Systems: All systems reviewed & are unremarkable except as noted in HPI & below Physical Exam Physical Exam: gen - morbidly obese, NAD mouth - MMM; poor dentition heart - RRR, s1 s2, 2/6 systolic murmur RUSB lungs - decreased BS bases; no wheeze; no increased work of breathing abd - soft NT ND BS+ ext - 1-2+ edema from feet to the knees, pulses 2+ b/l skin - multiple ulcerations b/l shins worst ulcer on L martins; b/l knee lesions from prior falls unchanged; optifoams in place multiple locations psych - a/o x 3 Results & Data Results & Data ([facility]) Vital Signs (Past 12 Hours) Vital Signs Temp Pulse Pulse Pulse Resp BP BP 04/13/22 15:42 36.7 C 91 H 19 125/64 04/13/22 15:32 84 04/13/22 12:46 36.7 C 91 H 18 125/73 04/13/22 08:00 04/13/22 08:00 80 04/13/22 07:08 36.4 C L 85 18 101/64 Pulse Ox O2 Del Method 04/13/22 15:42 92 Room Air 04/13/22 15:32 04/13/22 12:46 92 Room Air 04/13/22 08:00 Room Air 04/13/22 08:00 04/13/22 07:08 93 Room Air Laboratory Results 04/13/22 04/13/22 04/13/22 Range/Units 16:13 12:06 07:09 Sodium (136-145) mmol/L Potassium (3.5-5.1) mmol/L Chloride (98-107) mmol/L Carbon Dioxide (21-32) mmol/L Anion Gap (3-11) BUN (6-23) mg/dl Creatinine (0.6-1.2) mg/dl Est Cr Clr Drug Dosing ml/min Est GFR ( Amer) ml/min Est GFR (Non-Af Amer) ml/min BUN/Creatinine Ratio (10-20) Glucose (70-99(Fasting)) mg/dl POC Glucose 155 H 181 H 170 H (70-99) mg/dl Calcium (8.5-10.1) mg/dl Stl C. diff Tox B Gene (Neg) Hepatitis B Ab, Qual (NON-REACTIVE) Hep Bs Antigen (NON-REACTIVE) Hep Bs Ag Confirmation Hep B Core Total Ab (NON-REACTIVE) 04/13/22 04/13/22 04/12/22 Range/Units 06:23 04:22 19:54 Sodium 136 (136-145) mmol/L Potassium 3.7 (3.5-5.1) mmol/L Chloride 98 (98-107) mmol/L Carbon Dioxide 32 (21-32) mmol/L Anion Gap 6 (3-11) BUN 12 (6-23) mg/dl Creatinine 0.55 L (0.6-1.2) mg/dl Est Cr Clr Drug Dosing 141.2 ml/min Est GFR ( Amer) 117.3 ml/min Est GFR (Non-Af Amer) 101.2 ml/min BUN/Creatinine Ratio 21.8 H (10-20) Glucose 166 H (70-99(Fasting)) mg/dl POC Glucose 161 H (70-99) mg/dl Calcium 8.1 L (8.5-10.1) mg/dl Stl C. diff Tox B Gene Negative Cdiff Gene (Neg) Hepatitis B Ab, Qual (NON-REACTIVE) Hep Bs Antigen (NON-REACTIVE) Hep Bs Ag Confirmation Hep B Core Total Ab (NON-REACTIVE) 04/11/22 Range/Units 07:10 Sodium (136-145) mmol/L Potassium (3.5-5.1) mmol/L Chloride (98-107) mmol/L Carbon Dioxide (21-32) mmol/L Anion Gap (3-11) BUN (6-23) mg/dl Creatinine (0.6-1.2) mg/dl Est Cr Clr Drug Dosing ml/min Est GFR ( Amer) ml/min Est GFR (Non-Af Amer) ml/min BUN/Creatinine Ratio (10-20) Glucose (70-99(Fasting)) mg/dl POC Glucose (70-99) mg/dl Calcium (8.5-10.1) mg/dl Stl C. diff Tox B Gene (Neg) Hepatitis B Ab, Qual NON-REACTIVE (NON-REACTIVE) Hep Bs Antigen NON-REACTIVE (NON-REACTIVE) Hep Bs Ag Confirmation TNP Hep B Core Total Ab NON-REACTIVE (NON-REACTIVE) PG Care Time/CCT Total # of Minutes Spent Total Time Spent with Patient: Total time spent is greater than 50% in coordination of care (as documented) at patient's floor/unit and/or counseling patient: Coding Level of Care Code 85352 Subseq Hosp Care Lvl 2 Diagnoses Acute diastolic (congestive) heart failure I50.31 Acute hypoxemic respiratory failure J96.01 Bacteremia R78.81 Morbid obesity with BMI of 50.0-59.9, adult E66.01; Z68.43 Aortic stenosis I35.0 Type 2 diabetes mellitus E11.9 Hypomagnesemia E83.42 Hypokalemia E87.6 Skin lesion L98.9 Acute metabolic encephalopathy G93.41 DVT prophylaxis Z29.9 Cirrhosis K74.60 Pressure ulcers of skin of multiple topographic sites L89.90
[2022-04-13] MEDS: ACETAMINOPHEN 500 MG TAB PO PRN (20:49)
[2022-04-13] MEDS: MELATONIN 3 MG TAB PO PRN (20:49)
[2022-04-14] MEDS: ceFAZolin 2000MG 2,000 MG/15 ML SYR IV SCH ×2 (02:04→11:09)
[2022-04-14] MEDS: INSULIN ASPART PER UNIT SC SCH ×3 (08:29→16:26)
[2022-04-14] MEDS: MAGNESIUM OXIDE 400 MG TAB PO SCH (08:32)
[2022-04-14] MEDS: metFORMIN HCL ER 500 MG TABCR PO SCH ×2 (08:32→16:31)
[2022-04-14] MEDS: ADVANCED PROBIOTIC 1250 MG CAPSULE PO SCH (08:32)
[2022-04-14] MEDS: POT PHOSPHATE MONOBASIC W/ SOD TAB PO SCH ×3 (08:33→16:31)
[2022-04-14] MEDS: ENOXAPARIN INJ 40 MG/0.4 ML SYR SQ SCH (08:33)
[2022-04-14] MEDS: POTASSIUM CHLORIDE CRTAB 20 MEQ TABCR PO SCH (08:33)
[2022-04-14] MEDS: METOPROLOL TARTRATE 25 MG TAB PO SCH (08:33)
[2022-04-14] MEDS: PSYLLIUM or GUAR GUM FIBER POWDER PACKET PO SCH (08:33)
[2022-04-14 10:21] LABS: Basophils # (auto) 0.06 K/uL (0-0.2); Basophils % (auto) 0.6 %; Eosinophils # (auto) 0.32 K/uL (0-0.50); Eosinophils % (auto) 3.4 %; Hematocrit (blood only) 30.3 % (34.1-44.9); Hemoglobin 10.2 g/dl (12.0-16.0); Immature Granulocytes # (auto) 0.04 K/uL (0.00-0.02); Immature Granulocytes % (auto) 0.4 %; Lymphocytes # (auto) 2.22 K/uL (1.2-3.4); Lymphocytes % (auto) 23.6 %; Mean Corpuscular Hemoglobin 31.7 pg (25.0-34.0); Mean Corpuscular Hgb Conc 33.7 g/dL (32.0-36.0); Mean Corpuscular Volume 94.1 fL (80.0-100.0); Mean Platelet Volume 9.4 fL (9.4-12.3); Monocytes % (auto) 5.3 %; Neutrophils # (auto) 6.25 K/uL (1.4-6.5); Neutrophils % (auto) 66.7 %; Platelet Count 262 K/uL (130-400); RDW Standard Deviation 46.9 fL (36.4-46.3); Red Blood Count 3.22 M/uL (3.93-5.22); White Blood Count 9.39 K/ul (4.8-10.8)
[2022-04-14 10:39] LABS: Albumin Globulin Ratio 0.6 (0.9-2); Albumin Level 2.5 gm/dl (3.4-5.0); Bilirubin,Total 0.4 mg/dl (0.2-1.0); Calcium 8.3 mg/dl (8.5-10.1); Creatinine Clr Calc Pharmacy 161.8 ml/min; Est GFR (African American) 122.7 ml/min; Est GFR (Non-African American) 105.9 ml/min; Globulin 4.4 gm/dl (2.5-4.0); Magnesium 1.9 mg/dl (1.7-2.4); Phosphorus 3.5 mg/dl (2.5-4.9); Potassium 3.9 mmol/L (3.5-5.1); Total Protein 6.9 gm/dl (6.0-8.3)
[2022-04-14] MEDS ORDERED: FUROSEMIDE 40 MG TAB PO ONE (12:21)
[2022-04-14] MEDS ORDERED: SPIRONOLACTONE 25 MG TAB PO ONE (12:21)
[2022-04-14] MEDS ORDERED: DAPTOmycin 650 MG in SYRINGE 0 ML IV SCH (12:30)
--- NOTE | 2022-04-14 16:38 | Discharge Summary ---
Date of Service April 14, 2022 Admission HPI Per Admitting Provider 61 yo female with no past medical history given tat she has not seen a doctor for the past 30 years. Patient does not take medications at home. Patient has a sedentary lifestyle. As patient is obtunded, she is a poor historian. Her spouse and daugther, are at bedside. They report that over the past 2 weeks, she has become more weak. Last week she fell from her chair and was unable to get back up. She refused to go to the ER. This monring, she was more confused, and having significant SOB at rest, this prompted her to call 911. Principal Diagnosis MSSA Bacteremia, septicemia, cirrhosis, new onset diabetes mellitus Acute metabolic encephalopathy Discharge Exam gen - morbidly obese, NAD mouth - MMM; poor dentition heart - RRR, s1 s2, 2/6 systolic murmur RUSB lungs - decreased BS bases; no wheeze; no increased work of breathing abd - soft NT ND BS+ ext - 1-2+ edema from feet to the knees, pulses 2+ b/l skin - multiple ulcerations b/l shins worst ulcer on L martins; b/l knee lesions from prior falls unchanged; tegaderm in place left leg psych - a/o x 3 Discharge Data Allergies Allergy/AdvReac Type Severity Reaction Status Date / Time No Known Allergies Allergy Unverified 04/04/22 09:54 Consultations 04/04/22 10:27 ED Decision to Admit Stat 04/04/22 11:03 Consult Hot Plate Press Operator Routine 04/10/22 09:03 Consult Infectious Diseases Routine Ordered Studies 04/04/22 10:27 CT abd pelvis IV con only Stat CT angio chest PE protocol Stat CT head/brain wo con Stat 04/04/22 11:17 CT tib/fib LT w con Stat 04/10/22 07:30 US gallbladder Routine ECHO Diabetes Follow up Diabetes Follow-up Needed for HgbA1c >9%,Newly Diagnosed Diabetes Hospital Course (1) Acute diastolic (congestive) heart failure: resolved s/p IV diuresis most of the stay - po diuretics started lasix and aldactone she lost 10 lbs of fluid has LE edema, but otherwise appears euvolemic -continue lasix 40mg daily and aldactone 25mg daily (due to cirrhosis) -cont metoprolol 25mg BID recent echo -- EF technically preserved but low-normal at 50-55% RV function preserved CT and u/s of liver confirm presence of cirrhotic appearing liver (see below) TSH wnl although she has mod-severe I am uncertain if this is contributing to decompensated CHF patient wishes to establish care with [facility] in [place] - this is where her goes she will need f/u with the CHF clinic at [facility] (2) Acute hypoxemic respiratory failure: 2nd to pulmonary edema from #1 resolved O2 weaned off (3) Bacteremia: 2nd MSSA, likely source being the skin on lower extremities (multiple open ulcers/sores) repeat blood cultures 04/06 and 04/08 thus far negative to date echo without obvious valvular vegetations but has mod-severe ID cassandra consultant recommended JILLIAN-pt declined to have this done in light of no JILLIAN to definitively rule out SBE, ID has recommended total of 6 week course of IV ancef 2mg TID, first day of Rx 04/06/22 PICC placed 04/13 Was placed on ancef 2gm IV q8h but due to inability to find home health for IV antibiotics, had to switch to Daptomycin 650mg IV once daily for ease of once daily administration at [facility] after discharge -will need once weekly labs with CBC, CMP, and CK while on IV abx and outpt ID f/u in 2-3 weeks if possible-referral made to Dr. Ellis of ID for local f/u (4) Morbid obesity with BMI of 50.0-59.9, adult: BMI 49=50 (5) Aortic stenosis: mod-severe valve area 1.1cm^2 cards f/u needed - refer to [facility] CHF clinic (6) Type 2 diabetes mellitus: new-onset Hba1c 10.5% control improved with basal/bolus (lantus/novolog) requiring mod-large quantities of insulin to maintain euglycemia patient opposed to insulin therapy at home in preparation for d/c home have: 1. stopped lantus 2. cont novolog for meal coverage while here 3. started meformin xr 500mg bid with meals and titrate up to 1000mg po bid she is unlikely to have good control with metformin alone consider adding januvia or consider adding jardiance or other agent as outpt -will order testing supplies, glucometer--> met with pt and counseled (7) Hypomagnesemia: replaced resolved dc po magnesium as is having loose stools (8) Hypokalemia: replaced resolved follow BMP as an outpt on diuretics (9) Skin lesion: multiple, lower extremities and upper extremities, underneath breast and on buttocks due to falls, venous stasis, etc cont topical wound care as per communications programmer recommend Wound Care Clinic after discharge-referral made (10) Acute metabolic encephalopathy: 2nd to hypoxia, bacteremia, etc - resolved (11) Cirrhosis: CT and RUQ u/s both suggest cirrhotic appearing liver suspect fatty liver for many years which is likely now GALICIA can't rule out cardiac cirrhosis but much less likely HepC negative Check HepBsAg, etc - negative Will need GI f/u for this - [facility]ald[facility] for volume control patient/ counseled that she has cirrhotic appearing liver on 2 imaging studies (12) Pressure ulcers of skin of multiple topographic sites: Pressure ulcer of left buttock, at least stage 3, POA Pressure ulcer of L lateral ankle, at least stage 3, POA Pressure ulcer of R lateral ankle, stage 2, POA Wound care has seen - appreciate recommendations (13) DVT prophylaxis: lovenox 40mg BID Plan PT/OT evals appreciated cleared for home plan at d/c - * referrals to [facility] for [facility]CP * [facility] * [facility] * PICC -- 5 more weeks of IV Daptomycin * lasix + aldactone, metoprolol * metformin Dispo-dc to home today Total Time Total Time Spent Total Time Spent (In Minutes): 45 min Discharge Plan Discharge Items Patient Disposition: Home - Self-Care Reason For Visit: SEPSIS/CONFUSION Discharge Diagnosis: Staphylococcus bacteremia, sepsis Diabetes Multiple wounds Aortic stenosis Acute diastolic CHF Condition on Discharge: Good Activity: As commented below Bathing Comment: Keep PICC line dry Exercise/Sports: As tolerated Non-emergency contact: Primary Care Provider and Senior Civil Engineer Call non-emergency contact if: you have any medication questions, your symptoms worsen and you have a fever Follow-up/Referrals: Daren Good DO [Physician] - None (Dr. Good's office will contact you with your appointment date and time for Cardiology.) Christopher Castro MD [Outside Practitioners] - 04/16/22 3:00 pm PCP,NO [Primary Care Provider] - Diet: Carb Consistent or DM2, Heart Healthy and Low Sodium (2gm) Fluids: 1800ml (7 cups) Cole Attending Provider Instructions: Please finish out the IV antibiotics as planned through 05/17, once daily, at the [facility]. Your first appointment is at 1:00 PM on 04/15/22. You were diagnosed with a heart valve issue and will need to follow with a Senior Civil Engineer. You were started on a medication called metoprolol as well as two water pills called spironolactone and furosemide. You were also found to have diabetes. You were started on metformin for this and this should be slowly increased to 2 tabs twice a day over the next week. You should increase to 1 tab in the AM and 2 tabs in the PM on 04/16, and then increase to 2 tabs twice a day on 04/20. Check your blood sugar once daily at different times of the day. Please have your new family doctor talk to you about additional medications you will need to start to better control your diabetes. For your wounds, an appointment will be set up for you at the [facility] clinic. They will contact you with the appointment date and time. You were also found to have cirrhosis of the lover on a CT scan. You will need to follow wiht a Vault Clerk (liver doctor) and this appointment is also being arranged for you. [employer] Global Project Manager Provider Instructions: Call your Primary Care doctor if any of the following symptoms or problems start or get worse: * Shortness of breath or difficulty breathing * Wake up at night short of breath * Chest pain * Cough * Swelling of your hands, feet, or legs * More fatigued or tired with your normal activity * Palpitations - sudden fast heart beats WEIGHT * Weigh yourself every morning after using the bathroom. * Use the same scale. * Wear the same amount of clothing. * Write your weight down on a chart. * Call your Primary Care doctor if you gain more than 2-3 pounds in 1-2 days. MEDICATIONS * Use this discharge instruction sheet for medication instructions. * Take your medications at the time your doctor ordered. * Do not skip a dose of your medicines. * If you miss a dose of medicine, take it as soon as possible, but DO NOT DOUBLE A DOSE. * Read your medicine information when you get home. * Know all of the side effects of your medicine. If in doubt, ask your pharmacist * Call your Primary Care doctor's office if you have any side effects. * Be sure all of your doctors know what medicine and herbs you take (including cold, flu, and herbal medicine). Take the following with you to your follow-up doctor appointments: * Weight Chart * Medication List * List of questions Do not drink excessive alcohol, beer or wine. Pending Studies at Discharge: No Stand-Alone Forms: My [facility], Smoking Cessation Medications and DC Order Prescriptions: New daptomycin 500 mg recon soln 650 mg IV Q24H Qty: 34 0RF Rx Instructions: administer over 30 mins Last day of Tx will be 05/17 furosemide 40 mg Tablet 40 mg PO QAM Qty: 30 0RF spironolactone 25 mg Tablet 25 mg PO DAILY Qty: 30 0RF metformin 500 mg Tablet Extended Release 24 Hr 1,000 mg PO BIDM Qty: 120 0RF metoprolol tartrate 25 mg Tablet 25 mg PO BID Qty: 60 0RF (DME) blood-glucose meter [OneTouch Ultra2 Meter] Mis See Rx Instructions .Route Qty: 1 0RF Rx Instructions: As directed (DME) OneTouch Ultra Test Strip See Rx Instructions .Route Qty: 50 0RF Rx Instructions: As directed for glucose monitoring once daily (DME) lancets [OneTouch Delica Lancets] 33 gauge misc See Rx Instructions .Route Qty: 100 0RF Rx Instructions: As directed for once daily glucose monitoring Discharge Orders: Discharge Order (Routine); Ordered 04/14/22 Ordered By: Fang Bacon Admission Data Admit Date/Time: 04/04/22 11:03 Attending Provider: Fang Bacon Admit Provider: Blair Matute Primary Care Provider: PCP,NO Other Providers: [facility],Home Healthcare ; Blair Matute ; Christoph Gaytan ; Brissa Howard ; Christophe Andrade ; Martina Horn ; Carlton Wynne ; Lisa Carrasco ; Kimberly Gunn ; Ciera Nath ; Yoel Arshad ; Nicol Jarrett Coding Level of Care Code D/C DAY MANAGEMENT >30 MINS Diagnoses Acute diastolic (congestive) heart failure I50.31 Acute hypoxemic respiratory failure J96.01 Bacteremia R78.81 Morbid obesity with BMI of 50.0-59.9, adult E66.01; Z68.43 Aortic stenosis I35.0 Type 2 diabetes mellitus E11.9 Hypomagnesemia E83.42 Hypokalemia E87.6 Skin lesion L98.9 Acute metabolic encephalopathy G93.41 Cirrhosis K74.60 Pressure ulcers of skin of multiple topographic sites L89.90 DVT prophylaxis Z29.9
== END 2022-04-14 18:00 | disposition home or self-care (01) | DRG 871 ==
LOC: ED 08:07 → 1E 11:03 → SUATTDRO 11:03 → 1E 13:30 → 2S 22:06

== ENCOUNTER 2022-04-19 10:54 | Inpatient (IN) ==
--- NOTE | 2022-04-19 11:30 | Emergency Department Note ---
Impression & Plan Ambulatory dysfunction, Generalized weakness ED Provider Note HISTORY OF PRESENT ILLNESS: Patient is a 61-year-old female presenting with generalized weakness and recurrent falls over the last 4 days. Daughter provides most of history. Patient was just discharged from the hospital after being admitted for acute encephalopathy and being diagnosed with new onset heart failure and diabetes. She was cleared for discharge home, but mother reports concerns about the patient being home alone. She reports the patient has fallen numerous times in the last 3 days. She reports that her and the patient's has been unable to get her up on their own and had to call 911 for assistance. Patient reports feeling too weak to get up on her own. She was cleared for home with ambulation with a walker, but she states she has been unable to initiate getting up from a seated position. Denies any fevers at home over the last few days. Denies any chest pain, shortness of breath, lightheadedness or dizziness. She reportedly tripped while going into an outpatient office 4 days ago. Patient denies any focal weakness, numbness or tingling in her extremities. Denies any light headedness, dizziness, chest pain or shortness of breath prior to the falls. She reports she just feels too weak and then goes down. Denies any dysuria or hematuria. ROS: Constitutional: No fever, chills +Weakness Skin: No rash or diaphoresis HENT: No headaches or congestion Eyes: No vision changes Cardio: No chest pain, palpitations or leg swelling Respiratory: No cough, wheezing or shortness of breath GI: No nausea, vomiting, diarrhea, constipation : No dysuria, polyuria MSK: No joint or back pain Neuro: No loss of sensation, confusion, focal deficits, numbness, tingling Psychiatric: No mood changes PHYSICAL EXAM: Constitutional: Patient appears in no acute distress. HENT: Head: Normocephalic and atraumatic. Eyes: EOMI, PERRL Mouth/Throat: Mucous membranes moist. Neck: Trachea midline. Neck supple. Cardiovascular: RRR, No murmurs, rubs or gallops. Intact distal pulses. Pulmonary/Chest: No respiratory distress. Breath sounds clear and equal bilaterally. No wheezes or rales. No chest wall tenderness to palpation. Abdominal: BS +. Abdomen soft, no tenderness, rebound or guarding. Back: No midline spinal tenderness, no paraspinal tenderness, no CVA tenderness. Musculoskeletal: No edema, tenderness or deformity noted. PICC line in RUE that appears partly dislodged. Skin: Warm and dry. Abrasion to right elbow. Abrasions and wounds to bilateral lower legs. Psychiatric: Appropriate mood and affect for situation. Neuro: Alert and oriented. CN II-XII grossly intact. Moving all extremities equally. MDM: - Vitals signs showed borderline hypotension and tachycardia. - EKG negative for acute ischemic changes. - Laboratory workup grossly unremarkable. - UA ordered. - CXR showed stable PICC line placement and improving interstitial opacities. - Patient and her family are requesting admission for placement. She is receiving outpatient antibiotics through her PICC from her previous hospitalization. - [facility] Hospitalist consulted for admission. - Patient admitted to [facility] service for further evaluation and management. ASSESSMENT AND PLAN: Diagnosis: generalized weakness; ambulatory dysfunction Plan: admit Past Med/Surg History Social History Smoking Status: Never smoker Second Hand Exposure: No; Hx Alcohol Use: No Hx Substance Use: No Preferred Language: Welsh Communication Ability: Effective Director [employer] Required: No Beliefs That Will Affect Care: None marital status: Current Living Situation: Spouse Feels Safe at Home: Yes Assistive Devices: Cane Allergies Allergies Allergy/AdvReac Type Severity Reaction Status Date / Time No Known Allergies Allergy Verified 04/19/22 10:23 Home Meds Previous Rx's Medication Instructions Recorded blood sugar diagnostic (OneTouch #50 ea 04/14/22 Ultra Test strips) blood-glucose meter (OneTouch #1 ea 04/14/22 Ultra2 Meter) daptomycin 500 mg intravenous 650 mg IV Q24H #34 ea 04/14/22 solution furosemide 40 mg tablet 40 mg PO QAM #30 tabs 04/14/22 lancets 33 gauge (OneTouch Delica #100 ea 04/14/22 Lancets) metformin 500 mg tablet,extended 1,000 mg PO BIDM #120 tabs 04/14/22 release 24 hr metoprolol tartrate 25 mg tablet 25 mg PO BID #60 tabs 04/14/22 spironolactone 25 mg tablet 25 mg PO DAILY #30 tabs 04/14/22 Results & Data (ED) Vital Signs Vital Signs - 24 hr 04/19/22 11:04 11/21/22 11:41 04/19/22 13:04 Temperature 36.7 C Temperature Source Temporal Artery Scan Pulse Rate 100 H Pulse Rate [Left Apical] 97 H 88 Pulse Rhythm Regular Pulse Strength Normal Respiratory Rate Respiratory Effort / Characteristics Non-Labored Spontaneous Non-Labored Spontaneous Respiratory Depth Normal Normal Respiratory Pattern Regular Blood Pressure 97/50 L Blood Pressure [Left Radial Artery] 124/78 107/52 L Blood Pressure Mean 65 Blood Pressure Mean [Left Radial Artery] 93 70 Blood Pressure Position Sitting Pulse Oximetry 91 93 94 Oxygen Delivery Method Room Air Nasal Cannula Room Air Oxygen Flow Rate 2 Sepsis Recent Fever Within 48 Hours No Sepsis New/Unexplained Change in Mental Status N/A Sepsis Action Taken by Nursing No Action Required Laboratory Data Result diagrams: 04/19/22 11:33 04/19/22 11:33 Lab Results 04/19/22 04/19/22 04/19/22 Range/Units 11:33 11:33 12:04 WBC 10.38 (4.8-10.8) K/ul RBC 3.67 L (3.93-5.22) M/uL Hgb 11.6 L (12.0-16.0) g/dl Hct 33.8 L (34.1-44.9) % MCV 92.1 (80.0-100.0) fL MCH 31.6 (25.0-34.0) pg MCHC 34.3 (32.0-36.0) g/dL RDW Std Deviation 49.7 H (36.4-46.3) fL RDW Coeff of Chintan 14.6 H (11.5-14.5) % Plt Count 255 (130-400) K/uL MPV 10.0 (9.4-12.3) fL Immature Gran % (Auto) 0.1 % Neut % (Auto) 77.1 % Lymph % (Auto) 14.5 % Lynn % (Auto) 6.6 % Eos % (Auto) 1.2 % Baso % (Auto) 0.5 % Neut # (Auto) 8.01 H (1.4-6.5) K/uL Lymph # (Auto) 1.50 (1.2-3.4) K/uL Lynn # (Auto) 0.69 (0.24-0.82) K/uL Eos # (Auto) 0.12 (0-0.50) K/uL Baso # (Auto) 0.05 (0-0.2) K/uL Immature Gran # (Auto) 0.01 (0.00-0.02) K/uL Sodium 131 L (136-145) mmol/L Potassium 3.8 (3.5-5.1) mmol/L Chloride 94 L (98-107) mmol/L Carbon Dioxide 29 (21-32) mmol/L Anion Gap 8 (3-11) BUN 13 (6-23) mg/dl Creatinine 0.58 L (0.6-1.2) mg/dl Est Cr Clr Drug Dosing 131.7 ml/min Est GFR ( Amer) 115.3 ml/min Est GFR (Non-Af Amer) 99.5 ml/min BUN/Creatinine Ratio 22.4 H (10-20) Glucose 230 H (70-99(Fasting)) mg/dl Lactate (0.4-2.0) mmol/L Calcium 8.4 L (8.5-10.1) mg/dl Magnesium 1.5 L (1.7-2.4) mg/dl Total Bilirubin 0.6 (0.2-1.0) mg/dl AST 20 (13-39) U/L ALT 9 (7-52) U/L Alkaline Phosphatase 131 H (34-104) U/L Troponin I High Sens 13.5 D (0-14) pg/ml B-Natriuretic Peptide 585 H (0-100) pg/ml Total Protein 8.0 (6.0-8.3) gm/dl Albumin 2.9 L (3.4-5.0) gm/dl Globulin 5.1 H (2.5-4.0) gm/dl Albumin/Globulin Ratio 0.6 L (0.9-2) SARS-CoV-2, RNA, NAAT (NEGATIVE) 04/19/22 04/19/22 Range/Units 12:10 13:00 WBC (4.8-10.8) K/ul RBC (3.93-5.22) M/uL Hgb (12.0-16.0) g/dl Hct (34.1-44.9) % MCV (80.0-100.0) fL MCH (25.0-34.0) pg MCHC (32.0-36.0) g/dL RDW Std Deviation (36.4-46.3) fL RDW Coeff of Chintan (11.5-14.5) % Plt Count (130-400) K/uL MPV (9.4-12.3) fL Immature Gran % (Auto) % Neut % (Auto) % Lymph % (Auto) % Lynn % (Auto) % Eos % (Auto) % Baso % (Auto) % Neut # (Auto) (1.4-6.5) K/uL Lymph # (Auto) (1.2-3.4) K/uL Lynn # (Auto) (0.24-0.82) K/uL Eos # (Auto) (0-0.50) K/uL Baso # (Auto) (0-0.2) K/uL Immature Gran # (Auto) (0.00-0.02) K/uL Sodium (136-145) mmol/L Potassium (3.5-5.1) mmol/L Chloride (98-107) mmol/L Carbon Dioxide (21-32) mmol/L Anion Gap (3-11) BUN (6-23) mg/dl Creatinine (0.6-1.2) mg/dl Est Cr Clr Drug Dosing ml/min Est GFR ( Amer) ml/min Est GFR (Non-Af Amer) ml/min BUN/Creatinine Ratio (10-20) Glucose (70-99(Fasting)) mg/dl Lactate 1.1 (0.4-2.0) mmol/L Calcium (8.5-10.1) mg/dl Magnesium (1.7-2.4) mg/dl Total Bilirubin (0.2-1.0) mg/dl AST (13-39) U/L ALT (7-52) U/L Alkaline Phosphatase (34-104) U/L Troponin I High Sens (0-14) pg/ml B-Natriuretic Peptide (0-100) pg/ml Total Protein (6.0-8.3) gm/dl Albumin (3.4-5.0) gm/dl Globulin (2.5-4.0) gm/dl Albumin/Globulin Ratio (0.9-2) SARS-CoV-2, RNA, NAAT NEGATIVE (NEGATIVE) Imaging Data Radiologist's Impression: Chest X-Ray 04/19/22 11:24 XR chest 1V portable CLINICAL HISTORY: generalized weakness; check PICC line placement COMPARISON STUDY: Chest CT April 04, 2022. Chest radiograph April 05, 2022. FINDINGS: Right PICC is appropriately positioned. Tip projects over the cavoatrial junction. There is no pneumothorax or pleural effusion. Cardiomegaly is unchanged. Interstitial thickening and bilateral opacities are noted. These have improved since prior exam. IMPRESSION: 1. Appropriately positioned right PICC. Tip projects over the cavoatrial junction. 2. Persistent, but improved, interstitial thickening and bilateral airspace opacities. ACT 112: Negative or not required by law. Electronically signed by: Cruz Berman M.D. 04/19/2022 12:29 PM Discharge Plan Visit Data Chief Complaint: Fall Stated Complaint: CANT WALK ED Provider: Olivia Riggs Discharge Problem: Ambulatory dysfunction, Generalized weakness Patient Disposition: Admitted As Inpatient Forms Stand Alone Forms: My [facility] Prescriptions Prescriptions: No Action daptomycin 500 mg recon soln 650 mg IV Q24H Qty: 34 0RF Rx Instructions: administer over 30 mins Last day of Tx will be 05/17 furosemide 40 mg Tablet 40 mg PO QAM Qty: 30 0RF spironolactone 25 mg Tablet 25 mg PO DAILY Qty: 30 0RF metformin 500 mg Tablet Extended Release 24 Hr 1,000 mg PO BIDM Qty: 120 0RF metoprolol tartrate 25 mg Tablet 25 mg PO BID Qty: 60 0RF (DME) blood-glucose meter [OneTouch Ultra2 Meter] [facility] See Rx Instructions .Route Qty: 1 0RF Rx Instructions: As directed (DME) OneTouch Ultra Test Strip See Rx Instructions .Route Qty: 50 0RF Rx Instructions: As directed for glucose monitoring once daily (DME) lancets [OneTouch Delica Lancets] 33 gauge [facility] See Rx Instructions .Route Qty: 100 0RF Rx Instructions: As directed for once daily glucose monitoring Referrals Referrals: PCP,NO [Physician] -
[2022-04-19 11:45] LABS: Basophils # (auto) 0.05 K/uL (0-0.2); Basophils % (auto) 0.5 %; Eosinophils # (auto) 0.12 K/uL (0-0.50); Eosinophils % (auto) 1.2 %; Hematocrit (blood only) 33.8 % (34.1-44.9); Hemoglobin 11.6 g/dl (12.0-16.0); Immature Granulocytes # (auto) 0.01 K/uL (0.00-0.02); Immature Granulocytes % (auto) 0.1 %; Lymphocytes % (auto) 14.5 %; Mean Corpuscular Hemoglobin 31.6 pg (25.0-34.0); Mean Corpuscular Hgb Conc 34.3 g/dL (32.0-36.0); Mean Corpuscular Volume 92.1 fL (80.0-100.0); Monocytes # (auto) 0.69 K/uL (0.24-0.82); Monocytes % (auto) 6.6 %; Neutrophils # (auto) 8.01 K/uL (1.4-6.5); Neutrophils % (auto) 77.1 %; Platelet Count 255 K/uL (130-400); RDW Coefficient of Variation 14.6 % (11.5-14.5); RDW Standard Deviation 49.7 fL (36.4-46.3); Red Blood Count 3.67 M/uL (3.93-5.22); White Blood Count 10.38 K/ul (4.8-10.8)
[2022-04-19 12:05] LABS: Albumin Globulin Ratio 0.6 (0.9-2); Albumin Level 2.9 gm/dl (3.4-5.0); BUN Creatinine Ratio 22.4 (10-20); Bilirubin,Total 0.6 mg/dl (0.2-1.0); Calcium 8.4 mg/dl (8.5-10.1); Creatinine Clr Calc Pharmacy 131.7 ml/min; Est GFR (African American) 115.3 ml/min; Est GFR (Non-African American) 99.5 ml/min; Globulin 5.1 gm/dl (2.5-4.0); Magnesium 1.5 mg/dl (1.7-2.4); Potassium 3.8 mmol/L (3.5-5.1)
[2022-04-19 12:09] LABS: Troponin I High Sensitivity 13.5 pg/ml (0-14)
--- NOTE | 2022-04-19 12:31 | XRay Report ---
XR chest 1V portable CLINICAL HISTORY: generalized weakness; check PICC line placement COMPARISON STUDY: Chest CT April 04, 2022. Chest radiograph April 05, 2022. FINDINGS: Right PICC is appropriately positioned. Tip projects over the cavoatrial junction. There is no pneumothorax or pleural effusion. Cardiomegaly is unchanged. Interstitial thickening and bilatera l opacities are noted. These have improved since prior exam. IMPRESSION: 1. Appropriately positioned right PICC. Tip projects over the cavoatrial junction. 2. Persistent, but improved, interstitial thickening and bilateral airspace opacities. ACT 112: Negative or not required by law. Electronically signed by: Cruz Berman M.D. 04/19/2022 12:29 PM
[2022-04-19] MEDS ORDERED: GLUCOSE 40% GEL 15 GM TUBE PO PRN (14:59)
[2022-04-19] MEDS ORDERED: CARBOHYDRATES FOR HYPOGLYCEMIA PO PRN (14:59)
[2022-04-19] MEDS ORDERED: DEXTROSE 50% 50 ML SYRINGE IV PRN (14:59)
[2022-04-19] MEDS ORDERED: DAPTOmycin 500 MG VIAL IV SCH (14:59)
[2022-04-19] MEDS ORDERED: GLUCAGON FOR INJ 1 MG VIAL SQ PRN (14:59)
[2022-04-19] MEDS ORDERED: GLUCOSE 10 TAB/TUBE PO PRN (14:59)
--- NOTE | 2022-04-19 15:32 | History & Physical Report ---
Date of Service April 19, 2022 Assessment & Plan (1) Generalized weakness: (2) Ambulatory dysfunction: Plan: Admit to [facility] Patient presenting from home with reports of generalized weakness, ambulatory dysfunction, frequent falls. Recently admitted to [facility] 04/04 through 04/14 after not receiving care for many years and was found to have acute diastolic CHF, aortic stenosis, multiple lower extremity wounds, imaging findings suggestive of cirrhosis, and MSSA bacteremia. PT/OT, case management to assist with placement (3) Pressure ulcers of skin of multiple topographic sites: Plan: Multiple wounds scattered over body Some purulent drainage noted from left ankle and left buttock pressure wound, will obtain culture. Patient currently afebrile, no leukocytosis. On IV daptomycin for MSSA bacteremia, will hold on adding gram-negative coverage pending culture results. Wound care nurse consult (4) MSSA bacteremia: Plan: Diagnosed during previous admission, currently on IV daptomycin After discussion with pharmacist, will adjust dose to 675 mg daily weight-based Will complete 6 weeks of therapy on 05/17 Needs weekly CBC with differential, CMP, CK Follow-up with ID Dr. Ellis (5) Type 2 diabetes mellitus: Plan: Hgb A1c 10.5 04/04/2022 Newly diagnosed during previous admission, discharged on metformin Utilize Lantus and NovoLog per protocol while hospitalized (6) Aortic stenosis: (7) Chronic diastolic CHF (congestive heart failure): Plan: Appears euvolemic, continue furosemide and spironolactone Patient to establish with [facility] (8) Cirrhosis: Plan: Appears compensated Imaging during previous admission suggestive of cirrhosis, no prior history of Patient to establish with [facility] (9) DVT prophylaxis: Plan: SQ Lovenox Admission and Anticipated Discharge Date Admission Date: April 19, 2022 History of Present Illness Chief Complaint: Generalized weakness, falls Primary Care Provider: Christopher Castro MD 61-year-old female with PMH chronic diastolic CHF, aortic stenosis, DM type II, MSSA bacteremia, cirrhosis, and other problems listed below who presents to the ED for evaluation of generalized weakness and frequent falls. Patient recently admitted to [facility] 04/04 through 04/14 after not receiving care for many years and was found to have acute diastolic CHF, aortic stenosis, multiple lower extremity wounds, imaging findings suggestive of cirrhosis, and MSSA bacteremia. Patient declined JILLIAN. Patient was discharged on IV daptomycin daily which she has been receiving through [facility]. Patient's daughter and are at the bedside. Patient reports she has had much difficulty getting around since being discharged from the hospital. She is currently using a walker however has had several falls since returning home. Most recent fall was 3 days ago and EMS had to be called to help get the patient off of the floor. Patient denies any injuries, striking her head, or loss of consciousness. Daughter is concerned about buttock wound and left ankle wound. Patient denies chest pain and shortness of breath. No fevers or chills. Denies abdominal pain, nausea, vomiting, diarrhea. No urinary symptoms. In the ED, patient is hemodynamically stable, labs are essentially unremarkable. Patient will be admitted for PT/OT evaluations and likely placement. Allergies Allergy/AdvReac Type Severity Reaction Status Date / Time No Known Allergies Allergy Verified 04/19/22 10:23 Home Medications Medication Instructions Recorded Confirmed Type blood sugar diagnostic (D square nvuch #50 ea 04/14/22 04/19/22 Rx Ultra Test strips) blood-glucose meter (Chloe + IsabelTouch #1 ea 04/14/22 04/19/22 Rx Ultra2 Meter) daptomycin 500 mg intravenous 650 mg IV Q24H #34 ea 04/14/22 04/19/22 Rx solution furosemide 40 mg tablet 40 mg PO QAM #30 tabs 04/14/22 04/19/22 Rx lancets 33 gauge (OneTouch Delica #100 ea 04/14/22 04/19/22 Rx Lancets) metformin 500 mg tablet,extended 1,000 mg PO BIDM #120 tabs 04/14/22 04/19/22 Rx release 24 hr metoprolol tartrate 25 mg tablet 25 mg PO BID #60 tabs 04/14/22 04/19/22 Rx spironolactone 25 mg tablet 25 mg PO DAILY #30 tabs 04/14/22 04/19/22 Rx Past Med/Surg History Medical History (Updated 04/19/22 @ 15:51 by AIMEE Santiago) Aortic stenosis Chronic diastolic CHF (congestive heart failure) Cirrhosis MSSA bacteremia Surgical History No significant past surgical history Family History (Updated 04/19/22 @ 15:31 by AIMEE Santiago) Other Family history non-contributory Social History Smoking Status: Never smoker Second Hand Exposure: No; Hx Alcohol Use: No Hx Substance Use: No Preferred Language: Welsh Communication Ability: Effective Sports Management Intern Required: No Beliefs That Will Affect Care: None marital status: Current Living Situation: Spouse Current Living Situation Comment: one story set up, 1 step to enter Other Information That Helps Us Care for You: No Feels Safe at Home: Yes Safety Concerns: Feels Safe At This Time Assistive Devices: Brace/Splint/Immobilizer, Glasses, Lift Chair and Walker Review of Systems Review of Systems: ROS per HPI, all other systems reviewed and negative Physical Exam Constitutional: WD/WN, vitals as above + obese Eyes: PERRL, conjunctivae normal, anicteric sclerae ENMT: external ear and nose normal, oropharynx normal Mouth: + poor dentition Respiratory: normal respiratory effort; no respiratory distress Auscultation: + diminished lung sounds (Bilateral bases) Cardiovascular: Rate/Rhythm: regular rate and regular rhythm Heart Sounds: + murmur (Grade 2/6, systolic) Vessels: normal peripheral pulses Extremities: no edema Gastrointestinal (Abdomen): normal bowel sounds, soft, nontender, no hepatosplenomegaly Musculoskeletal: Extremities: no cyanosis and no clubbing Generally weak throughout Skin: no rashes, warm and dry Multiple wounds scattered over lower extremities, stage III pressure ulcers noted to left lateral ankle and left buttock Neurologic: PERRL, EOMI, accommodation nl, no face palsy, no dysarthria Psychiatric: A+Ox3, euthymic affect Results & Data Results & Data ([facility]) Vital Signs (Past 12 Hours) Vital Signs Temp Pulse Pulse Pulse Resp BP BP 04/19/22 14:59 37.0 C 89 18 106/70 04/19/22 14:00 112 H 24 110/67 04/19/22 13:30 90 20 04/19/22 13:00 94 H 20 04/19/22 13:00 107/52 L 04/19/22 12:01 96 H 88/52 L 04/19/22 13:04 88 22 04/19/22 11:41 97 H 22 04/19/22 11:04 36.7 C 100 H 20 97/50 L BP Pulse Ox O2 Del Method O2 Flow Rate 04/19/22 14:59 96 Nasal Cannula 2 04/19/22 14:00 04/19/22 13:30 95 04/19/22 13:00 94 04/19/22 13:00 04/19/22 12:01 04/19/22 13:04 107/52 L 94 Room Air 04/19/22 11:41 124/78 93 Nasal Cannula 2 04/19/22 11:04 91 Room Air Laboratory Results Short CBC 04/19/22 Range/Units 11:33 WBC 10.38 (4.8-10.8) K/ul Hgb 11.6 L (12.0-16.0) g/dl Hct 33.8 L (34.1-44.9) % Plt Count 255 (130-400) K/uL BMP 04/19/22 11:33 Sodium 131 L Potassium 3.8 Chloride 94 L Carbon Dioxide 29 BUN 13 Creatinine 0.58 L Glucose 230 H Calcium 8.4 L Liver Function 04/19/22 Range/Units 11:33 Total Bilirubin 0.6 (0.2-1.0) mg/dl AST 20 (13-39) U/L ALT 9 (7-52) U/L Alkaline Phosphatase 131 H (34-104) U/L Albumin 2.9 L (3.4-5.0) gm/dl Diagnostic Findings Chest X-Ray 04/19/22 11:24 XR chest 1V portable CLINICAL HISTORY: generalized weakness; check PICC line placement COMPARISON STUDY: Chest CT April 04, 2022. Chest radiograph April 05, 2022. FINDINGS: Right PICC is appropriately positioned. Tip projects over the cavoatrial junction. There is no pneumothorax or pleural effusion. Cardiomegaly is unchanged. Interstitial thickening and bilateral opacities are noted. These have improved since prior exam. IMPRESSION: 1. Appropriately positioned right PICC. Tip projects over the cavoatrial junction. 2. Persistent, but improved, interstitial thickening and bilateral airspace opacities. ACT 112: Negative or not required by law. Electronically signed by: Cruz Berman M.D. 04/19/2022 12:29 PM Code Status & VTE Plan Code Status Patient is a full code as per my discussion with her. VTE Prophylaxis Plan VTE Prophylaxis will be ordered: Yes Supervising Physician Co-Signing Physician Notes Care coordinated with AIMEE Santiago. Agree with above note. Patient seen and examined. Please refer to her notes for full details. Vital signs reviewed. Physical exam: General exam: Alert and oriented. Not in acute distress. CVS: S1 and S2 heard, regular rate and rhythm, no murmurs. RS: Clear to auscultation, no wheezing or crackles. ABD: Soft, bowel sounds present, nontender, no distention. LAST MODEL MAKER: Nonfocal. Skin. Draining wound seen on left buttock. Wound seen on left ankle lateral aspect. Healing wounds on shins. EXT: No edema, no erythema. Labs: Reviewed. Assessment and plan: 61F who was recently admitted to hospital after not going to doctors for long time for multiple wounds, acute diastolic chf, aortic stenosis and found to have MSSA Bacteremia and was discharged on IV daptomycin for ease of dosing to home and was bought in by daughter and as she is falling frequently and getting weaker. She walks with walker but doing good. Afebrile, Says taking her medications as prescribed. Hemodynamically stable. Multiple wounds MSSA bacteremia on iv daptomycin has her left buttock wound seems drainging will reculture if needed may consult surgery wound care Weakness ambulatory dysfunction pt/ot may need placement Other diagnosis and plan of care as per AIMEE Santiago. Baljeet maharaj MD.
[2022-04-19] MEDS ORDERED: DAPTOmycin 675 MG in SYRINGE 0 ML IV SCH (15:45)
[2022-04-19] MEDS ORDERED: Nursing to Pharmacy Communication SCH (16:30)
[2022-04-19] MEDS: MAGNESIUM SULFATE / D5W 1 GM/100 ML BAG IV SCH ×2 (16:51→18:33)
[2022-04-19] MEDS: INSULIN ASPART PER UNIT SC SCH ×2 (17:34→20:52)
[2022-04-19] MEDS: ENOXAPARIN INJ 40 MG/0.4 ML SYR SQ SCH (17:34)
[2022-04-19 19:32] LABS: Appearance Urine Clear (Clear); Bacteria Urine Automated Negative (Negative); Bilirubin Urine Negative (Negative); Blood Urine 1+ (Negative); Color Urine Yellow; Glucose Urine UA Negative (Negative); Ketones Urine Negative (Negative); Leukocyte Esterase Urine Negative (Negative); Nitrite Urine Negative (Negative); Protein Urine Trace (Negative); Specific Gravity Urine 1.014 (1.000-1.030); Urobilinogen Urine Negative (Negative); pH Urine 5.5 (4.5-7.5)
[2022-04-19 20:01] LABS: RBC Urine Automated 0-4 /hpf (0-4)
[2022-04-19] MEDS: NYSTATIN OINT 15 GM TUBE EXT SCH (20:26)
[2022-04-19] MEDS: METOPROLOL TARTRATE 25 MG TAB PO SCH (20:26)
[2022-04-19] MEDS: LANTUS PER UNIT CHARGE SQ SCH (20:53)
[2022-04-19] MEDS: ACETAMINOPHEN 325 MG TAB PO PRN (22:24)
[2022-04-19] MEDS ORDERED: ALBUMIN 25% 100 mL 25 GM/100 ML VIAL IV ONE (23:44)
[2022-04-20 07:27] LABS: BUN Creatinine Ratio 28.3 (10-20); Creatinine Clr Calc Pharmacy 163.1 ml/min; Est GFR (African American) 124.4 ml/min; Est GFR (Non-African American) 107.4 ml/min; Potassium 3.6 mmol/L (3.5-5.1)
[2022-04-20 07:41] LABS: Hematocrit (blood only) 29.9 % (34.1-44.9); Hemoglobin 10.2 g/dl (12.0-16.0); Mean Corpuscular Hemoglobin 31.9 pg (25.0-34.0); Mean Corpuscular Hgb Conc 34.1 g/dL (32.0-36.0); Mean Corpuscular Volume 93.4 fL (80.0-100.0); Mean Platelet Volume 10.8 fL (9.4-12.3); Platelet Count 220 K/uL (130-400); RDW Coefficient of Variation 14.6 % (11.5-14.5); RDW Standard Deviation 50.4 fL (36.4-46.3); White Blood Count 8.19 K/ul (4.8-10.8)
[2022-04-20] MEDS: FUROSEMIDE 40 MG TAB PO SCH (08:22)
[2022-04-20] MEDS: METOPROLOL TARTRATE 25 MG TAB PO SCH ×2 (08:22→19:54)
[2022-04-20] MEDS: NYSTATIN OINT 15 GM TUBE EXT SCH ×2 (08:22→20:31)
[2022-04-20] MEDS: SPIRONOLACTONE 25 MG TAB PO SCH (08:22)
[2022-04-20] MEDS: DAPTOmycin 675 MG in SYRINGE 0 ML IV SCH (08:28)
[2022-04-20] MEDS: LANTUS PER UNIT CHARGE SQ SCH ×2 (09:09→21:01)
[2022-04-20] MEDS: INSULIN ASPART PER UNIT SC SCH ×4 (09:12→21:01)
[2022-04-20] MEDS ORDERED: CEFEPIME 2,000 MG in SYRINGE 0 ML IV SCH (10:30)
[2022-04-20] MEDS ORDERED: OPTIRAY 350 100ml IV ONE (10:31)
--- NOTE | 2022-04-20 11:02 | Surgery Consultation ---
Date of Consultation April 20, 2022 Assessment & Plan (1) Wound of left buttock: (2) Pressure ulcers of skin of multiple topographic sites: (3) MSSA bacteremia: during prior admission. Discharged with IV Dapto added Cefepime due to gram-negative bacteria on wound culture Plan 61 year-old morbidly obese female with recent admission at begining of this month with multiple wounds and MSSA bacteremia now found to have worsening left buttock wound requring debridement. CT scan showing alot of gas in the wound however no examination findings concerning for fascitis. Plan: Continue IV Antibiotics Will need surgical debridement in OR Will plan for debridement tomorrow with Dr. Enriquez Continue medical management NPO after midnight Dr. Enriquez has seen and examined pt, agrees with above. See addendum for further recommendations/plan. History of Present Illness Reason for Consultation: Left buttock wound , surgical debridement? Requesting Physician: AIMEE Santiago Attending Physician: Jules Jc MD History of Present Illness Phyllis is a 61 year-old female who presented to emergency department yesterday for ambulatory dysfunction and frequent falls. She was recently admitted here at [facility] at beginning of the month and found to have MSSA bacteremia, acute heart failure, aortic stenosis , cirrhosis and multiple wounds (upper extremities, lower extremities, left buttock wound, and breast wound). She had not received any medical care for 30+ years prior to her admission at beginning of the month. She was discharged home with IV Daptomycin for the MSSA bactermia. Our services consulted for worsening left buttock wound likely requiring surgical debridement. Allergies Allergy/AdvReac Type Severity Reaction Status Date / Time No Known Allergies Allergy Verified 04/19/22 10:23 Home Medications Medication Instructions Recorded Confirmed Type blood sugar diagnostic (RewardableTouch #50 ea 04/14/22 04/19/22 Rx Ultra Test strips) blood-glucose meter (RewardableTouch #1 ea 04/14/22 04/19/22 Rx Ultra2 Meter) daptomycin 500 mg intravenous 650 mg IV Q24H #34 ea 04/14/22 04/19/22 Rx solution furosemide 40 mg tablet 40 mg PO QAM #30 tabs 04/14/22 04/19/22 Rx lancets 33 gauge (OneTouch Delica #100 ea 04/14/22 04/19/22 Rx Lancets) metformin 500 mg tablet,extended 1,000 mg PO BIDM #120 tabs 04/14/22 04/19/22 Rx release 24 hr metoprolol tartrate 25 mg tablet 25 mg PO BID #60 tabs 04/14/22 04/19/22 Rx spironolactone 25 mg tablet 25 mg PO DAILY #30 tabs 04/14/22 04/19/22 Rx Patient History Medical History Aortic stenosis Chronic diastolic CHF (congestive heart failure) Cirrhosis MSSA bacteremia Surgical History No significant past surgical history Family History Other Family history non-contributory Social History Smoking Status: Never smoker Second Hand Exposure: No; Hx Alcohol Use: No Hx Substance Use: No Preferred Language: Yemeni Communication Ability: Effective 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 Beliefs That Will Affect Care: None marital status: Current Living Situation: Spouse Current Living Situation Comment: one story set up, 1 step to enter How many Children do You have: 1 Other Information That Helps Us Care for You: No Feels Safe at Home: Yes Safety Concerns: Feels Safe At This Time Assistive Devices: Cane and Walker Physical Exam Constitutional: + morbidly obese; no acute distress and not ill appearing Neck: normal visual inspection and trachea midline Gastrointestinal (Abdomen): Left buttock wound measuring about 5 x 5 cm with undermining laterally about 5 cm and the wound goes deep inferiorly. There is fibrinous tissue present at wound base. Surrounding induration. Psychiatric: Orientation: alert and oriented x 3 Results & Data ([facility]) Vital Signs (Past 12 Hours) Vital Signs Temp Pulse Resp BP Pulse Ox O2 Del Method O2 Flow Rate 04/20/22 08:21 94 Nasal Cannula 1 04/20/22 08:14 37.2 C 89 18 108/65 91 Room Air 04/20/22 01:45 37.1 C 100 H 20 111/67 95 Nasal Cannula 2 04/20/22 00:43 36.8 C 85 20 93/57 L 90 Room Air 04/19/22 23:22 37.7 C H 83 20 86/52 L 90 Room Air Laboratory Results 04/20/22 04/20/22 04/20/22 Range/Units 08:16 06:25 00:03 WBC 8.19 (4.8-10.8) K/ul RBC 3.20 L (3.93-5.22) M/uL Hgb 10.2 L (12.0-16.0) g/dl Hct 29.9 L (34.1-44.9) % MCV 93.4 (80.0-100.0) fL MCH 31.9 (25.0-34.0) pg MCHC 34.1 (32.0-36.0) g/dL RDW Std Deviation 50.4 H (36.4-46.3) fL RDW Coeff of Chintan 14.6 H (11.5-14.5) % Plt Count 220 (130-400) K/uL MPV 10.8 (9.4-12.3) fL Immature Gran % (Auto) % Neut % (Auto) % Lymph % (Auto) % [place] % (Auto) % Eos % (Auto) % Baso % (Auto) % Neut # (Auto) (1.4-6.5) K/uL Lymph # (Auto) (1.2-3.4) K/uL [place] # (Auto) (0.24-0.82) K/uL Eos # (Auto) (0-0.50) K/uL Baso # (Auto) (0-0.2) K/uL Immature Gran # (Auto) (0.00-0.02) K/uL Sodium 131 L (136-145) mmol/L Potassium 3.6 (3.5-5.1) mmol/L Chloride 96 L (98-107) mmol/L Carbon Dioxide 28 (21-32) mmol/L Anion Gap 7 (3-11) BUN 13 (6-23) mg/dl Creatinine 0.46 L (0.6-1.2) mg/dl Est Cr Clr Drug Dosing 163.1 ml/min Est GFR ( Amer) 124.4 ml/min Est GFR (Non-Af Amer) 107.4 ml/min BUN/Creatinine Ratio 28.3 H (10-20) Glucose 137 H (70-99(Fasting)) mg/dl POC Glucose 158 H (70-99) mg/dl Lactate (0.4-2.0) mmol/L Calcium 8.0 L (8.5-10.1) mg/dl Magnesium (1.7-2.4) mg/dl Total Bilirubin (0.2-1.0) mg/dl AST (13-39) U/L ALT (7-52) U/L Alkaline Phosphatase (34-104) U/L Troponin I High Sens (0-14) pg/ml B-Natriuretic Peptide (0-100) pg/ml Total Protein (6.0-8.3) gm/dl Albumin (3.4-5.0) gm/dl Globulin (2.5-4.0) gm/dl Albumin/Globulin Ratio (0.9-2) Urine Color Urine Appearance (Clear) Urine pH (4.5-7.5) Ur Specific [place] (1.000-1.030) Urine Protein (Negative) Urine Glucose (UA) (Negative) Urine Ketones (Negative) Urine Blood (Negative) Urine Nitrite (Negative) Urine Bilirubin (Negative) Urine Urobilinogen (Negative) Ur Leukocyte Esterase (Negative) Urine WBC (Auto) (0-5) /hpf Urine RBC (Auto) (0-4) /hpf U Hyaline Cast (Auto) (0-5) /lpf U Epithel Cells (Auto) (0-5) /lpf Urine Bacteria (Auto) (Negative) Urine Yeast (None Prsent) SARS-CoV-2, RNA, NAAT (NEGATIVE) 04/20/22 04/19/22 04/19/22 Range/Units 00:02 20:17 18:50 WBC (4.8-10.8) K/ul RBC (3.93-5.22) M/uL Hgb (12.0-16.0) g/dl Hct (34.1-44.9) % MCV (80.0-100.0) fL MCH (25.0-34.0) pg MCHC (32.0-36.0) g/dL RDW Std Deviation (36.4-46.3) fL RDW Coeff of [place]int[place] (11.5-14.5) % Plt Count (130-400) K/uL MPV (9.4-12.3) fL Immature Gran % (Auto) % Neut % (Auto) % Lymph % (Auto) % [place] % (Auto) % Eos % (Auto) % Baso % (Auto) % Neut # (Auto) (1.4-6.5) K/uL Lymph # (Auto) (1.2-3.4) K/uL [place] # (Auto) (0.24-0.82) K/uL Eos # (Auto) (0-0.50) K/uL Baso # (Auto) (0-0.2) K/uL Immature Gran # (Auto) (0.00-0.02) K/uL Sodium (136-145) mmol/L Potassium (3.5-5.1) mmol/L Chloride (98-107) mmol/L Carbon Dioxide (21-32) mmol/L Anion Gap (3-11) BUN (6-23) mg/dl Creatinine (0.6-1.2) mg/dl Est Cr Clr Drug Dosing ml/min Est GFR ( Amer) ml/min Est GFR (Non-Af Amer) ml/min BUN/Creatinine Ratio (10-20) Glucose (70-99(Fasting)) mg/dl POC Glucose 178 H (70-99) mg/dl Lactate 0.9 (0.4-2.0) mmol/L Calcium (8.5-10.1) mg/dl Magnesium (1.7-2.4) mg/dl Total Bilirubin (0.2-1.0) mg/dl AST (13-39) U/L ALT (7-52) U/L Alkaline Phosphatase (34-104) U/L Troponin I High Sens (0-14) pg/ml B-Natriuretic Peptide (0-100) pg/ml Total Protein (6.0-8.3) gm/dl Albumin (3.4-5.0) gm/dl Globulin (2.5-4.0) gm/dl Albumin/Globulin Ratio (0.9-2) Urine Color Yellow Urine Appearance Clear (Clear) Urine pH 5.5 (4.5-7.5) Ur Specific [place] 1.014 (1.000-1.030) Urine Protein Trace H (Negative) Urine Glucose (UA) Negative (Negative) Urine Ketones Negative (Negative) Urine Blood 1+ H (Negative) Urine Nitrite Negative (Negative) Urine Bilirubin Negative (Negative) Urine Urobilinogen Negative (Negative) Ur Leukocyte Esterase Negative (Negative) Urine WBC (Auto) 1-5 (0-5) /hpf Urine RBC (Auto) 0-4 (0-4) /hpf U Hyaline Cast (Auto) 5-10 H (0-5) /lpf U Epithel Cells (Auto) 10-20 H (0-5) /lpf Urine Bacteria (Auto) Negative (Negative) Urine Yeast Budding A (None Prsent) SARS-CoV-2, RNA, NAAT (NEGATIVE) 04/19/22 04/19/22 04/19/22 Range/Units 17:00 13:00 12:10 WBC (4.8-10.8) K/ul RBC (3.93-5.22) M/uL Hgb (12.0-16.0) g/dl Hct (34.1-44.9) % MCV (80.0-100.0) fL MCH (25.0-34.0) pg MCHC (32.0-36.0) g/dL RDW Std Deviation (36.4-46.3) fL RDW Coeff of [place] (11.5-14.5) % Plt Count (130-400) K/uL MPV (9.4-12.3) fL Immature Gran % (Auto) % Neut % (Auto) % Lymph % (Auto) % [place] % (Auto) % Eos % (Auto) % Baso % (Auto) % Neut # (Auto) (1.4-6.5) K/uL Lymph # (Auto) (1.2-3.4) K/uL [place] # (Auto) (0.24-0.82) K/uL Eos # (Auto) (0-0.50) K/uL Baso # (Auto) (0-0.2) K/uL Immature Gran # (Auto) (0.00-0.02) K/uL Sodium (136-145) mmol/L Potassium (3.5-5.1) mmol/L Chloride (98-107) mmol/L Carbon Dioxide (21-32) mmol/L Anion Gap (3-11) BUN (6-23) mg/dl Creatinine (0.6-1.2) mg/dl Est Cr Clr Drug Dosing ml/min Est GFR ( Amer) ml/min Est GFR (Non-Af Amer) ml/min BUN/Creatinine Ratio (10-20) Glucose (70-99(Fasting)) mg/dl POC Glucose 171 H (70-99) mg/dl Lactate 1.1 (0.4-2.0) mmol/L Calcium (8.5-10.1) mg/dl Magnesium (1.7-2.4) mg/dl Total Bilirubin (0.2-1.0) mg/dl AST (13-39) U/L ALT (7-52) U/L Alkaline Phosphatase (34-104) U/L Troponin I High Sens (0-14) pg/ml B-Natriuretic Peptide (0-100) pg/ml Total Protein (6.0-8.3) gm/dl Albumin (3.4-5.0) gm/dl Globulin (2.5-4.0) gm/dl Albumin/Globulin Ratio (0.9-2) Urine Color Urine Appearance (Clear) Urine pH (4.5-7.5) Ur Specific [place] (1.000-1.030) Urine Protein (Negative) Urine Glucose (UA) (Negative) Urine Ketones (Negative) Urine Blood (Negative) Urine Nitrite (Negative) Urine Bilirubin (Negative) Urine Urobilinogen (Negative) Ur Leukocyte Esterase (Negative) Urine WBC (Auto) (0-5) /hpf Urine RBC (Auto) (0-4) /hpf U Hyaline Cast (Auto) (0-5) /lpf U Epithel Cells (Auto) (0-5) /lpf Urine Bacteria (Auto) (Negative) Urine Yeast (None Prsent) SARS-CoV-2, RNA, NAAT NEGATIVE (NEGATIVE) 04/19/22 04/19/22 04/19/22 Range/Units 12:04 11:33 11:33 WBC 10.38 (4.8-10.8) K/ul RBC 3.67 L (3.93-5.22) M/uL Hgb 11.6 L (12.0-16.0) g/dl Hct 33.8 L (34.1-44.9) % MCV 92.1 (80.0-100.0) fL MCH 31.6 (25.0-34.0) pg MCHC 34.3 (32.0-36.0) g/dL RDW Std Deviation 49.7 H (36.4-46.3) fL RDW Coeff of Chintan 14.6 H (11.5-14.5) % Plt Count 255 (130-400) K/uL MPV 10.0 (9.4-12.3) fL Immature Gran % (Auto) 0.1 % Neut % (Auto) 77.1 % Lymph % (Auto) 14.5 % [place] % (Auto) 6.6 % Eos % (Auto) 1.2 % Baso % (Auto) 0.5 % Neut # (Auto) 8.01 H (1.4-6.5) K/uL Lymph # (Auto) 1.50 (1.2-3.4) K/uL [place] # (Auto) 0.69 (0.24-0.82) K/uL Eos # (Auto) 0.12 (0-0.50) K/uL Baso # (Auto) 0.05 (0-0.2) K/uL Immature Gran # (Auto) 0.01 (0.00-0.02) K/uL Sodium 131 L (136-145) mmol/L Potassium 3.8 (3.5-5.1) mmol/L Chloride 94 L (98-107) mmol/L Carbon Dioxide 29 (21-32) mmol/L Anion Gap 8 (3-11) BUN 13 (6-23) mg/dl Creatinine 0.58 L (0.6-1.2) mg/dl Est Cr Clr Drug Dosing 131.7 ml/min Est GFR ( Amer) 115.3 ml/min Est GFR (Non-Af Amer) 99.5 ml/min BUN/Creatinine Ratio 22.4 H (10-20) Glucose 230 H (70-99(Fasting)) mg/dl POC Glucose (70-99) mg/dl Lactate (0.4-2.0) mmol/L Calcium 8.4 L (8.5-10.1) mg/dl Magnesium 1.5 L (1.7-2.4) mg/dl Total Bilirubin 0.6 (0.2-1.0) mg/dl AST 20 (13-39) U/L ALT 9 (7-52) U/L Alkaline Phosphatase 131 H (34-104) U/L Troponin I High Sens 13.5 D (0-14) pg/ml B-Natriuretic Peptide 585 H (0-100) pg/ml Total Protein 8.0 (6.0-8.3) gm/dl Albumin 2.9 L (3.4-5.0) gm/dl Globulin 5.1 H (2.5-4.0) gm/dl Albumin/Globulin Ratio 0.6 L (0.9-2) Urine Color Urine Appearance (Clear) Urine pH (4.5-7.5) Ur Specific [place] (1.000-1.030) Urine Protein (Negative) Urine Glucose (UA) (Negative) Urine Ketones (Negative) Urine Blood (Negative) Urine Nitrite (Negative) Urine Bilirubin (Negative) Urine Urobilinogen (Negative) Ur Leukocyte Esterase (Negative) Urine WBC (Auto) (0-5) /hpf Urine RBC (Auto) (0-4) /hpf U Hyaline Cast (Auto) (0-5) /lpf U Epithel Cells (Auto) (0-5) /lpf Urine Bacteria (Auto) (Negative) Urine Yeast (None Prsent) SARS-CoV-2, RNA, NAAT (NEGATIVE) Microbiology 04/19/22 15:45 Gram Stain - Final Buttock,Left 04/19/22 15:45 Gram Stain - Final Ankle,Left Diagnostic Findings CT pelvis w/IV con only HISTORY: 61 years-old Female left buttock wound, eval for abscess patient presents with wound of the left buttock COMPARISON: 04/04/2022 TECHNIQUE: Axial CT images of the pelvis were obtained following the intravenous administration of 94 mL Optiray 350. A dose lowering technique was used consistent with the principals of DMITRIY. FINDINGS: Marginal nodularity of the liver is redemonstrated suspicious for cirrhosis. No hepatic mass identified. Nonspecific gallbladder wall thickening. Atherosclerosis of the aorta without aneurysm. Calcified pelvic lymph nodes are redemonstrated. 4 mm nonobstructing calculus of the inferior pole left kidney. Decompressed urinary bladder with Lozano catheter in place. Postmenopausal endometrium appears to be mildly thickened. No bowel obstruction or bowel wall thickening. Moderate colonic fecal retention. Normal appendix. Small fat filled periumbilical hernia, diastases of 2.7 cm. There is a large left buttock soft tissue wound measuring approximately 3.8 cm transversely. There is a large amount of air and/or packing material extending into the wound into the proximal left thigh. This is most pronounced medially however air and inflammatory stranding tracks into the hamstring and abductor musculature. No drainable fluid collection. Degenerative changes of the spine, pelvis and hips. No acute fracture. No destructive bone lesion. IMPRESSION: 1. Large left buttock ulcer with inflammatory stranding and deep tissue gas. Findings may be secondary to recent intervention, however should be correlated clinically to exclude fasciitis. Additionally, there is evidence of associated cellulitis with myositis. No drainable fluid collection. 2. No bowel obstruction or bowel wall thickening. 3. Left nephrolithiasis. 4. Nonspecific gallbladder wall thickening. Findings could be correlated with ultrasound. 5. Additional findings as above.
--- NOTE | 2022-04-20 11:28 | Student Report ---
[employer] Student Progress Note Date of Service Date of service: April 20, 2022 Subjective Subjective: 61 yo female with PMH problems listed below who presents to the ED for evaluation of generalized weakness and frequent falls. Pt with recent admission in early March with new diagnoses of diastolic heart failure, , DM 2, buttocks and lower extremity wounds, MSSA bacteremia and possible cirrhosis. Pt went home on IV daptomycin. Most recently pt has been having increasing problems with getting around and over the past several days has fallen multiple times. Pt readmitted for evaluation of buttocks and leg wounds, cont antibiotic therapy, and PT/OT consult for evaluation and possible placement. Pt resting in bed with CWON at bedside to evaluate wounds and change dressings. Pt denies any fever, chills, night sweats, but feels sleep today. Denies BOBBY, CP, SOB, abdominal pain/cramping, N/V/D. Denies any pain or issues with gandara catheter. Pt denies pain at any wound sites currently. After assessment, wound recommended a general surgery consult, possible ortho consult for malleus wound. ROS ROS: See above for pertinent positives & negatives. A total of 10 systems reviewed and were otherwise negative. Physical Exam Physical Exam: Vital Signs Temp 37.2 C 04/20/22 08:14 Pulse 89 04/20/22 08:14 Resp 18 04/20/22 08:14 BP 108/65 04/20/22 08:14 Pulse Ox 94 04/20/22 08:21 O2 Del Method 04/20/22 08:21 O2 Flow Rate 1 04/20/22 08:21 General: Well-appearing, in no significant distress, converses appropriately, cooperative. HEENT: No scleral icterus, PERRLA, neck supple. Normocephalic. Cardiovascular: S1, S2 heard. +2/6 systolic murmur over aortic valve. Pulmonary: Clear to auscultation bilaterally, normal work of breathing. Slightly diminished d/t body habitus. Abdomen: Soft, nontender, nondistended, positive bowel sounds in quadrants x4. Musculoskeletal: Atraumatic, no peripheral edema. GALLARDO equally. Neurologic: Patient awake alert and oriented x 3, +4 strength in all 4 extremities. PERRLA. No issues with hearing. Skin: Warm, dry, pink. L buttock, malleus, martins wounds all unstageable. Right malleus wound unstageable. Buttock wound with large amount of purulent fowl smelling drainage. Pictures and measurements documented by ALEJA. All wounds redressed per wound RN recs. Results Results: Short CBC 04/19/22 04/20/22 11:33 00:03 WBC 10.38 8.19 Hgb 11.6 L 10.2 L Hct 33.8 L 29.9 L Plt Count 255 220 BMP 04/19/22 04/20/22 11:33 06:25 Sodium 131 L 131 L Potassium 3.8 3.6 Chloride 94 L 96 L Carbon Dioxide 29 28 BUN 13 13 Creatinine 0.58 L 0.46 L Glucose 230 H 137 H Calcium 8.4 L 8.0 L Liver Function 04/19/22 11:33 Total Bilirubin 0.6 AST 20 ALT 9 Alkaline Phosphatase 131 H Albumin 2.9 L Urine 04/19/22 18:50 Urine Color Yellow Urine Appearance Clear Urine pH 5.5 Ur Specific [place] 1.014 Urine Protein Trace H Urine Glucose (UA) Negative 04/19/22 15:45 Gram Stain - Final Buttock,Left 04/19/22 15:45 Gram Stain - Final Ankle,Left 04/19/22 18:50 Urine Culture - Pending Urine,Straight Cath Chest X-Ray 04/19/22 11:24 XR chest 1V portable CLINICAL HISTORY: generalized weakness; check PICC line placement COMPARISON STUDY: Chest CT April 04, 2022. Chest radiograph April 05, 2022. FINDINGS: Right PICC is appropriately positioned. Tip projects over the cavoatrial junction. There is no pneumothorax or pleural effusion. Cardiomegaly is unchanged. Interstitial thickening and bilateral opacities are noted. These have improved since prior exam. IMPRESSION: 1. Appropriately positioned right PICC. Tip projects over the cavoatrial junction. 2. Persistent, but improved, interstitial thickening and bilateral airspace opacities. ACT 112: Negative or not required by law. Electronically signed by: Cruz Berman M.D. 04/19/2022 12:29 PM Medication List Acetaminophen (Acetaminophen 325 Mg Tab) 650 mg PO Q4H PRN Enoxaparin Sodium (Enoxaparin Inj 40 Mg/0.4 Ml Syr) 40 mg SQ Q24H ERAN Furosemide (Furosemide 40 Mg Tab) 40 mg PO QAM ERAN Daptomycin 675 mg/ Syringe 13.5 mls @ 0 mls/min IV Q24H ERAN; Protocol Insulin Aspart (Insulin Aspart Per Unit) 0 units SC ACHS ERAN Insulin Glargine (Lantus Per Unit Charge) 8 units SQ BID ERAN Metoprolol Tartrate (Metoprolol Tartrate 25 Mg Tab) 25 mg PO BID ERAN Nystatin (Nystatin Oint 15 Gm Tube) 1 appln EXT BID ERAN Spironolactone (Spironolactone 25 Mg Tab) 25 mg PO DAILY ERAN A&P A&P: 1. Multiple pressure wounds: Continue with dressing changes per ALEJA juárez. Buttocks wound packed d/t undermining. General Surgery c/s to evaluate need for I&D of any wounds. CT scan/MRA for further diagnosis support. Pt decline MRA. I&D at bedside by ortho. Pt changed from cefepime to zosyn (anaerobic coverage) d/t pt having low grade temp, tachycardia, and increased O2 requirements. 2. Generalized weakness and ambulatory dysfunction: PT/OT c/s for evaluation and recommendations on home vs facility placement. 3. MSSA bacteremia: Continue IV daptomycin, pt will require continued therapy after discharge to complete 6 weeks total (05/17). 4. DM2: A1C 04/04/22: 10.5 Continue insulin aspart ACHS and glargine BID. 5. Aortic stenosis: Pt needs JILLIAN for further evaluation of valve to r/o vegetation but has refused at this point. 6. Diastolic HF: Continue lasix, metoprolol, and losartan while inpatient. 7. Cirrhosis: Imaging suspicious for cirrhotic changes, will need outpatient follow-up. 8. DVT proph - lovenox 40mg subQ BID
--- NOTE | 2022-04-20 12:26 | XRay Report ---
LEFT ANKLE 3 VIEWS CLINICAL HISTORY: Wound. FINDINGS: 3 views of the left ankle are correlated with CT scan of the left tibia and fibula dated . The skeletal structures are osteopenic. No fracture is seen. There is no bony erosion or per iostitis. The ankle mortise is intact. No joint effusion is identified. There is a large plantar heel spur. Degenerative spurring is seen along the dorsal aspect of the tarsal bones. Soft tissue edema i s present throughout the left lower extremity. There is advanced atherosclerotic calcification of the regional arteries. Phleboliths are noted in the calf. No soft tissue gas is seen. IMPRESSION: 1. Soft tissue swelling with no acute bony abnormality identified. 2. Osteopenia with degenerative change and a large heel spur as above. Electronically signed by: Israel Johnson M.D. 04/20/2022 12:24 PM
--- NOTE | 2022-04-20 12:53 | Urology Consultation ---
Date of Consultation April 20, 2022 Assessment & Plan (1) Urinary retention: Plan 61-year-old female admitted with generalized weakness and falls. -Urology consulted for urinary retention -likely multifactorial. -Afebrile (Tmax 37.7) and hemodynamically stable. -Labs reviewed- no leukocytosis, creatinine stable. -Urine culture 04/19 is preliminary showing pint point growth, reincubating; Blood cultures 04/20 are pending -On IV Zosyn and Daptomycin. -Catheter is currently draining clear yellow urine. -Maintain Lozano catheter for now for management of urinary retention. -Can consider voiding trial prior to discharge as I suspect her urinary retention may resolve with improvement of acute issues. -If patient fails inpatient voiding trial, recommend catheter replacement and outpatient follow-up with urology. -Continue supportive care, antibiotic therapy, and ensure bowels are normalized. -Urology will sign-off. Please contact us with any further questions, concerns, or changes in patient status. History of Present Illness Reason for Consultation: Urinary retention Attending Physician: Jules Jc MD History of Present Illness 61-year-old female with PMH chronic diastolic CHF, aortic stenosis, DM type II, MSSA bacteremia, cirrhosis admitted for evaluation of generalized weakness and frequent falls. Patient recently admitted to [facility] 04/04 through 04/14 after not receiving care for many years and was found to have acute diastolic CHF, aortic stenosis, multiple lower extremity wounds, imaging findings suggestive of cirrhosis, and MSSA bacteremia. Urology consulted for urinary retention. Per chart review, urinary catheter was inserted on 04/19 with documented 1550 mL after insertion. Patient examined at bedside this AM. Awake, resting in bed on arrival. No acute distress. Lozano catheter intact, draining clear yellow urine. Denies any significant pain at present. Denies prior urological history. Has never seen a urologist per her report. Allergies Allergy/AdvReac Type Severity Reaction Status Date / Time No Known Allergies Allergy Verified 04/19/22 10:23 Home Medications Medication Instructions Recorded Confirmed Type blood sugar diagnostic (ZooppaTouch #50 ea 04/14/22 04/19/22 Rx Ultra Test strips) blood-glucose meter (OneTouch #1 ea 04/14/22 04/19/22 Rx Ultra2 Meter) daptomycin 500 mg intravenous 650 mg IV Q24H #34 ea 04/14/22 04/19/22 Rx solution furosemide 40 mg tablet 40 mg PO QAM #30 tabs 04/14/22 04/19/22 Rx lancets 33 gauge (OneTouch Delica #100 ea 04/14/22 04/19/22 Rx Lancets) metformin 500 mg tablet,extended 1,000 mg PO BIDM #120 tabs 04/14/22 04/19/22 Rx release 24 hr metoprolol tartrate 25 mg tablet 25 mg PO BID #60 tabs 04/14/22 04/19/22 Rx spironolactone 25 mg tablet 25 mg PO DAILY #30 tabs 04/14/22 04/19/22 Rx Patient History Medical History (Updated 04/20/22 @ 16:45 by AIMEE Dawn) Aortic stenosis Chronic diastolic CHF (congestive heart failure) Cirrhosis MSSA bacteremia Urinary retention Surgical History No significant past surgical history Family History Other Family history non-contributory Social History Smoking Status: Never smoker Second Hand Exposure: No; Hx Alcohol Use: No Hx Substance Use: No Preferred Language: Upper Sorbian Communication Ability: Effective Body Art Technician Required: No Beliefs That Will Affect Care: None marital status: Current Living Situation: Spouse Current Living Situation Comment: one story set up, 1 step to enter How many Children do You have: 1 Other Information That Helps Us Care for You: No Feels Safe at Home: Yes Safety Concerns: Feels Safe At This Time Assistive Devices: Cane and Walker Review of Systems Review of Systems: All systems reviewed & are unremarkable except as noted in HPI & below Physical Exam Constitutional: + obese; no acute distress Neck: normal visual inspection Respiratory: no respiratory distress and no labored breathing Musculoskeletal: Head/Neck/Chest: normocephalic Skin: No visible rashes or lesions to exposed skin areas Neurologic: awake Psychiatric: Orientation: alert and oriented x 3 Genitourinary: Lozano catheter intact Results & Data ([facility]) Vital Signs (Past 12 Hours) Vital Signs Temp Pulse Resp BP Pulse Ox O2 Del Method O2 Flow Rate 04/20/22 08:21 94 Nasal Cannula 1 04/20/22 08:14 37.2 C 89 18 108/65 91 Room Air 04/20/22 01:45 37.1 C 100 H 20 111/67 95 Nasal Cannula 2 PG Care Time/CCT Total # of Minutes Spent Total Time Spent with Patient: Total time spent is greater than 50% in coordination of care (as documented) at patient's floor/unit and/or counseling patient: Coding Level of Care Code 79331 Inpt Consult Level 3 Diagnoses Urinary retention R33.9
--- NOTE | 2022-04-20 13:45 | Anesthesiology Consultation ---
Date of Service April 20, 2022 Assessment & Plan (1) Encounter for pre-operative examination: Chart Review Chart Review: data entry processor initiated History Surgery Operation Date: 04/20/22 11:40 Proposed Procedures p Left Buttock Wound Debridement - Andi Enriquez MD Height/Weight Height: 5 ft 3 in Weight: 122.47 kg Allergies Allergy/AdvReac Type Severity Reaction Status Date / Time No Known Allergies Allergy Verified 04/19/22 10:23 Medications Home Medications Medication Instructions Recorded Confirmed Last Taken blood sugar diagnostic (OneTouch #50 ea 04/14/22 04/19/22 Unknown Ultra Test strips) blood-glucose meter (OneTouch #1 ea 04/14/22 04/19/22 Unknown Ultra2 Meter) daptomycin 500 mg intravenous 650 mg IV Q24H #34 ea 04/14/22 04/19/22 Unknown solution furosemide 40 mg tablet 40 mg PO QAM #30 tabs 04/14/22 04/19/22 Unknown lancets 33 gauge (OneTouch Delica #100 ea 04/14/22 04/19/22 Unknown Lancets) metformin 500 mg tablet,extended 1,000 mg PO BIDM #120 tabs 04/14/22 04/19/22 Unknown release 24 hr metoprolol tartrate 25 mg tablet 25 mg PO BID #60 tabs 04/14/22 04/19/22 Unknown spironolactone 25 mg tablet 25 mg PO DAILY #30 tabs 04/14/22 04/19/22 Unknown Active Medications Generic Name Dose Route Start Last Admin Trade Name Freq PRN Reason Stop Dose Admin Acetaminophen 650 mg 04/19/22 14:59 04/19/22 22:24 Acetaminophen 325 Mg Tab PO 05/19/22 14:58 650 mg Q4H PRN Administration pain/fever Enoxaparin Sodium 40 mg 04/19/22 15:15 04/19/22 17:34 Enoxaparin Inj 40 Mg/0.4 Ml Syr SQ 05/19/22 15:14 40 mg Q24H ERAN Administration Furosemide 40 mg 04/20/22 09:00 04/20/22 08:22 Furosemide 40 Mg Tab PO 05/20/22 08:59 40 mg QAM ERAN Administration Heparin Sodium (Beef Lung) 5 ml 04/20/22 01:28 04/20/22 11:42 Heparin 10 Unit/Ml 5 Ml Flush FLUSH 05/20/22 01:27 5 ml PRN PRN Administration Flush Daptomycin 675 mg/ Syringe 13.5 mls @ 0 mls/min 04/20/22 09:00 04/20/22 08:28 IV 05/04/22 08:59 1 mls/min Q24H ERAN Administration Protocol Cefepime HCl 2,000 mg/ Syringe 20 mls @ 5 mls/min 04/20/22 10:30 04/20/22 11:42 IV 04/27/22 10:29 5 mls/min Q8H ERAN Administration Protocol Insulin Aspart 0 units 04/19/22 16:30 04/20/22 12:33 Insulin Aspart Per Unit SC 05/19/22 16:29 2 units ACHS ERAN Administration Insulin Glargine 8 units 04/19/22 21:00 04/20/22 09:09 Lantus Per Unit Charge SQ 05/19/22 20:59 8 units BID ERAN Administration Metoprolol Tartrate 25 mg 04/19/22 21:00 04/20/22 08:22 Metoprolol Tartrate 25 Mg Tab PO 05/19/22 20:59 25 mg BID ERAN Administration Nystatin 1 appln 04/19/22 21:00 04/20/22 08:22 Nystatin Oint 15 Gm Tube EXT 05/19/22 20:59 1 appln BID REAN Administration Spironolactone 25 mg 04/20/22 09:00 04/20/22 08:22 Spironolactone 25 Mg Tab PO 05/20/22 08:59 25 mg DAILY ERAN Administration Past Medical History Medical History Aortic stenosis Chronic diastolic CHF (congestive heart failure) Cirrhosis MSSA bacteremia Past Family History Family History Other Family history non-contributory Past Surgical History Surgical History No significant past surgical history Social History Smoking Status: Never smoker Hx Alcohol Use: No Hx Substance Use: No Physical Exam Vital Signs Last Vital Signs Temp 99.0 F 04/20/22 08:14 Pulse 89 04/20/22 08:14 Resp 18 04/20/22 08:14 BP 108/65 11/22/22 08:14 Pulse Ox 94 04/20/22 08:21 O2 Del Method 04/20/22 08:21 O2 Flow Rate 1 04/20/22 08:21 Testing Laboratory Results 04/20/22 00:03 04/20/22 06:25 Urine Color Yellow 04/19/22 18:50 Urine Appearance Clear (Clear) 04/19/22 18:50 Urine pH 5.5 (4.5-7.5) 04/19/22 18:50 Ur Specific [place] 1.014 (1.000-1.030) 04/19/22 18:50 Urine Protein Trace (Negative) H 04/19/22 18:50 Urine Glucose (UA) Negative (Negative) 04/19/22 18:50 Urine Ketones Negative (Negative) 04/19/22 18:50 Urine Nitrite Negative (Negative) 04/19/22 18:50 Ur Leukocyte Esterase Negative (Negative) 04/19/22 18:50 Urine WBC (Auto) 1-5 /hpf (0-5) 04/19/22 18:50 Urine RBC (Auto) 0-4 /hpf (0-4) 04/19/22 18:50 U Hyaline Cast (Auto) 5-10 /lpf (0-5) H 04/19/22 18:50 U Epithel Cells (Auto) 10-20 /lpf (0-5) H 04/19/22 18:50 Urine Bacteria (Auto) Negative (Negative) 04/19/22 18:50 04/19/22 15:45 Gram Stain - Final Buttock,Left Wound Culture - Preliminary Low counts mixed probable gastrointestinal microbiota. 04/19/22 15:45 Gram Stain - Final Ankle,Left Wound Culture - Preliminary Pin-point growth present, reincubating. 04/20/22 04/20/22 12:08 08:16 POC Glucose 168 H 158 H Electrocardiogram Date: 04/19/22 Sinus tachycardia with occasional Premature ventricular complexes, rate 102 bpm Left axis deviation Inferior infarct (cited on or before 04-APR-2022) Anterolateral infarct (cited on or before 04-APR-2022) Abnormal ECG When compared with ECG of 04-APR-2022 08:22, QRS duration has decreased Questionable change in initial forces of Inferior leads Non-specific change in ST segment in Lateral leads Chest X-Ray Date: 04/19/22 IMPRESSION: 1. Appropriately positioned right PICC. Tip projects over the cavoatrial junction. 2. Persistent, but improved, interstitial thickening and bilateral airspace opacities. Echocardiogram Date: 04/04/22 LV is mildly dilated LV systolic function is low normal EF 50-55% Borderline global hypokinesis of the LV RV is moderately dilated RV systolic function is normal Moderate to severe valvular Moderate mitral annular calcification Mild MR RVSP is elevated at 30-40mmHg
--- NOTE | 2022-04-20 13:53 | Magnetic Resonance Report ---
MR ankle LT wo con CLINICAL HISTORY: 61 years-old Female with left lateral ankle wound, eval for osteo. 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 No additiona l images were obtained. FINDINGS/IMPRESSION: Limited human resources records clerk images were obtained. The patient decided to abort the study. No diagnostic images were obtained. The patient will not be charged for this exam. ACT 112: Negative or not required by law. The above report was generated using voice recognition software. It may contain grammatical, syntax o r spelling errors. Electronically signed by: Michael Rodriguez M.D. 04/20/2022 1:52 PM
--- NOTE | 2022-04-20 14:34 | Hospitalist Progress Note ---
Date of Service April 20, 2022 Assessment & Plan (1) Pressure ulcers of skin of multiple topographic sites: Plan: Multiple wounds scattered over body - please refer to wound care nurse documentation for full details and photos 5cm x 5cm wound left buttock - large amount of purulent drainage expressed when rolling patient in bed. Will obtain CT to evaluate for deep abscess. General surgery consulted for possible debridement, case discussed with Livia Nugent PA-C Culture pending 3cm x 3cm wound left lateral ankle over the malleolus - sloughing tissue present. MRI ordered to evaluate for possible osteomyelitis however patient declined study. Ortho consulted, bedside debridement preformed. Vascular consult placed by ortho. Consider wound vac. Culture pending. Currently on IV Dapto for previously diagnosed MSSA bacteremia. Adding empiric gram-negative coverage with cefepime. ID consult (2) MSSA bacteremia: Plan: Diagnosed during previous admission, currently on IV daptomycin After discussion with pharmacist on admission, dose adjusted to 675 mg daily weight-based Will complete 6 weeks of therapy on 05/17 Needs weekly CBC with differential, CMP, CK Follow-up with ID Dr. Ellis (3) Generalized weakness: (4) Ambulatory dysfunction: Plan: Patient presenting from home with reports of generalized weakness, ambulatory dysfunction, frequent falls. Recently admitted to [facility] 04/04 through 04/14 after not receiving care for many years and was found to have acute diastolic CHF, aortic stenosis, multiple lower extremity wounds, imaging findings suggestive of cirrhosis, and MSSA bacteremia. PT/OT, case management to assist with placement (5) Type 2 diabetes mellitus: Plan: Hgb A1c 10.5 04/04/2022 Newly diagnosed during previous admission, discharged on metformin Utilize Lantus and NovoLog per protocol while hospitalized (6) Aortic stenosis: (7) Chronic diastolic CHF (congestive heart failure): Plan: Appears euvolemic, continue furosemide and spironolactone Patient to establish with [facility] (8) Cirrhosis: Plan: Appears compensated Imaging during previous admission suggestive of cirrhosis, no prior history of Patient to establish with [facility] (9) DVT prophylaxis: Plan: SQ Lovenox Admission and Anticipated Discharge Date Admission Date: April 19, 2022 Supervising Physician Co-Signing Physician Notes Patient seen and examined at bedside as a follow-up of pressure ulcers of skin of multiple topographic sites, worse left buttock pressure ulcer, MSSA bacteremia ongoing treatment with IV daptomycin, generalized weakness and ambulatory dysfunction. Continue with IV daptomycin to complete the course for MSSA bacteremia diagnosed on previous admission. Her left buttock ulcer is purulent and with necrotic tissue, surgery consult, possible debridement, Zosyn for the time being. ID consult. Her left lateral ankle wound, orthopedic consulted for need for debridement. Patient was lying in bed, on 2 L nasal cannula oxygen, NAD, left buttock wound with purulent drainage and necrotic tissue, left ankle wound noted, ulcers elsewhere in the body are in healing stages. Rest of the examination as above. I have seen and examined the patient and have discussed the case with the provider above. I agree with the assessment and plan as stated. Subjective Follow up for generalized weakness, ambulatory dysfunction, MSSA bacteremia, multiple wounds. Patient seen and examined. Wounds evaluated with wound care nurse. According to bedside RN, patient had episodic confusion overnight with low-grade fever and hypotension. Patient received albumin. Patient seems to be at baseline this morning. Offers no complaints. Denies chest pain and shortness of breath. No abdominal pain or nausea. Review of Systems Review of Systems: ROS per HPI, all other systems reviewed and negative Physical Exam Constitutional: WD/WN, vitals as above + obese Respiratory: normal respiratory effort; no respiratory distress Auscultation: + diminished lung sounds Cardiovascular: Rate/Rhythm: regular rate and regular rhythm Vessels: normal peripheral pulses Extremities: no edema Gastrointestinal (Abdomen): Percussion/Palpation: abdomen soft; abdomen nontender Skin: skin examined w/ wound care nurse, please refer to her documentation for full details and photos of multiple wounds 5cm x 5cm unstageable pressure ulcer left buttock w/ 5cm undermining, large amou nt of purulent drainage expressed when rolling patient 3cm x 3cm unstageable pressure ulcer left lateral ankle w/ sloughing tissue present Neurologic: no focal motor deficits Psychiatric: A+Ox3, euthymic affect Insight: + limited insight Genitourinary: gandara in place draining clear, dark yellow urine Results & Data Results & Data ([facility]) Vital Signs (Past 12 Hours) Vital Signs Temp Pulse Resp BP Pulse Ox O2 Del Method O2 Flow Rate 04/20/22 08:21 94 Nasal Cannula 1 04/20/22 08:14 37.2 C 89 18 108/65 91 Room Air Laboratory Results Short CBC 04/20/22 Range/Units 00:03 WBC 8.19 (4.8-10.8) K/ul Hgb 10.2 L (12.0-16.0) g/dl Hct 29.9 L (34.1-44.9) % Plt Count 220 (130-400) K/uL BMP 04/20/22 06:25 Sodium 131 L Potassium 3.6 Chloride 96 L Carbon Dioxide 28 BUN 13 Creatinine 0.46 L Glucose 137 H Calcium 8.0 L Urine 04/19/22 Range/Units 18:50 Urine Color Yellow Urine Appearance Clear (Clear) Urine pH 5.5 (4.5-7.5) Ur Specific [place] 1.014 (1.000-1.030) Urine Protein Trace H (Negative) Urine Glucose (UA) Negative (Negative) Diagnostic Findings Ankle MRI 04/20/22 09:58 MR ankle LT wo con CLINICAL HISTORY: 61 years-old Female with left lateral ankle wound, eval for osteo. 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 No additional images were obtained. FINDINGS/IMPRESSION: Limited woods manager images were obtained. The patient decided to abort the study. No diagnostic images were obtained. The patient will not be charged for this exam. ACT 112: Negative or not required by law. The above report was generated using voice recognition software. It may contain grammatical, syntax or spelling errors. Electronically signed by: Michael Rodriguez M.D. 04/20/2022 1:52 PM Ankle X-Ray 04/20/22 10:20 LEFT ANKLE 3 VIEWS CLINICAL HISTORY: Wound. FINDINGS: 3 views of the left ankle are correlated with CT scan of the left tibia and fibula dated 04/04/2022. The skeletal structures are osteopenic. No fracture is seen. There is no bony erosion or periostitis. The ankle mortise is intact. No joint effusion is identified. There is a large plantar heel spur. Degenerative spurring is seen along the dorsal aspect of the tarsal bones. Soft tissue edema is present throughout the left lower extremity. There is advanced atherosclerotic calcification of the regional arteries. Phleboliths are noted in the calf. No soft tissue gas is seen. IMPRESSION: 1. Soft tissue swelling with no acute bony abnormality identified. 2. Osteopenia with degenerative change and a large heel spur as above. Electronically signed by: Israel Johnson M.D. 04/20/2022 12:24 PM
--- NOTE | 2022-04-20 14:42 | Progress Notes ---
DATE OF SERVICE: 04/20/2022 I was asked to see the patient for evaluation of a left ankle wound. She has been admitted to the [facility] for ambulatory dysfunction and weakness. Known history of diabetes. A wound on the lateral a spect of the left ankle, which she thinks is from pressure and it has been there for maybe about a mo nth. She reports no injury. Her health history is noted and reviewed, congestive heart failure, cirrhosis, she has had MSSA bacte remia, multiple skin ulcers, and type 2 diabetes. Her meds are noted. She is not on a blood thinner . She is afebrile. Her vital signs are stable. Her white blood cell count is 8, hemoglobin is 10, hem atocrit is 30, and platelets are 220. Her PRP is noted. Ankle MRI she did not complete. Previous C T scan of the tib-fib showed no abnormality in terms of the bone. Ankle x-rays show a suggestion of a soft tissue defect and vascular calcifications, but no fracture or arthritis or evidence of osteomy elitis. Hemoglobin A1c was 10.5 on 04/04/2022. On exam, she can flex and extend the ankle and invert and ojanna without difficulty. She reports sens ation intact to light touch. There is no swelling, erythema, or induration. Capillary refill is les s than 2 seconds, but pedal pulses are not palpable. There is a superficial wound on the second toe and a more extensive wound in the upper pretibial area. There is a 2.5 to 3-cm diameter wound over the lateral ankle. There is necrotic tissue present centr ally with some bloody drainage. No obvious exposed bone, tendon, or joint. Preprocedural time-out, treatment options, risks, benefits, and written informed consent was obtained . Sera Mcbride assisted. The area was prepped with Betadine, and then using a clean technique, the necrotic tissue was debrided sharply using scissors and scalpel. 2 x 2 cm2 area of debridement. Good bleeding base. Necrotic tissue as well as subcutaneous fat debrided. It tracks perhaps 5 to 7 mm deep inferiorly, but there is no exposed tendon, bone, or joint. It does undermine a few millime ters superior and posterior. Good bleeding throughout. A dressing is applied. IMPRESSION: Diabetic and potential vascular-related ulceration of the lateral ankle. No evidence of osteomyelitis. PLAN: Findings were discussed with the patient and family. Recommended bedside debridement and she agreed to proceed. An informed consent was obtained. The debridement was affected. She can weight bear as tolerated. She may eat. I do not see any need for any intravenous antibiotics in [facility] ip to this wound at present. We can connect with the wound care nurse to see if we can get a wound V AC applied. We will continue to monitor. Vascular consultation. Nutrition. Albumin at last visit was 2.9. Job ID: [id number]
--- NOTE | 2022-04-20 15:03 | CT Scan Report ---
CT pelvis w/IV con only HISTORY: 61 years-old Female left buttock wound, eval for abscess patient presents with wound of the left buttock COMPARISON: 04/04/2022 TECHNIQUE: Axial CT images of the pelvis were obtained following the intravenous administration of 94 mL Optiray 350. A dose lowering technique was used consistent with the principals of DMITRIY. FINDINGS: Marginal nodularity of the liver is redemonstrated suspicious for cirrhosis. No hepatic mass identifi ed. Nonspecific gallbladder wall thickening. Atherosclerosis of the aorta without aneurysm. Calcified pelvic lymph nodes are redemonstrated. 4 mm nonobstructing calculus of the inferior pole left kidney . Decompressed urinary bladder with Lozano catheter in place. Postmenopausal endometrium appears to be mildly thickened. No bowel obstruction or bowel wall thickening. Moderate colonic fecal retention. Normal appendix. Sma ll fat filled periumbilical hernia, diastases of 2.7 cm. There is a large left buttock soft tissue wo und measuring approximately 3.8 cm transversely. There is a large amount of air and/or packing materi al extending into the wound into the proximal left thigh. This is most pronounced medially however ai r and inflammatory stranding tracks into the hamstring and abductor musculature. No drainable fluid c ollection. Degenerative changes of the spine, pelvis and hips. No acute fracture. No destructive bone lesion. IMPRESSION: 1. Large left buttock ulcer with inflammatory stranding and deep tissue gas. Findings may be secondar y to recent intervention, however should be correlated clinically to exclude fasciitis. Additionally, there is evidence of associated cellulitis with myositis. No drainable fluid collection. 2. No bowel obstruction or bowel wall thickening. 3. Left nephrolithiasis. 4. Nonspecific gallbladder wall thickening. Findings could be correlated with ultrasound. 5. Additional findings as above. ACT 112: Negative or not required by law. The above report was generated using voice recognition software. It may contain grammatical, syntax o r spelling errors. Electronically signed by: Michael Rodriguez M.D. 04/20/2022 3:01 PM
[2022-04-20] MEDS ORDERED: PIPERACILLIN/TAZOBACTAM 4.5 GM in DEXTROSE 5% 100 ML IV ONE (16:45)
--- NOTE | 2022-04-20 17:05 | XRay Report ---
XR chest 1V portable CLINICAL HISTORY: hypoxia COMPARISON STUDY: Chest CT April 04, 2022. Chest radiograph April 19, 2022. FINDINGS: Right PICC is in place. No pneumothorax or pleural effusion is present. Cardiomegaly is unc hanged. Patient is rotated. Interstitial thickening is again noted. Linear bilateral opacities persis t. There is no lobar consolidation. IMPRESSION: 1. Cardiomegaly. Mild interstitial thickening. This may reflect pulmonary vascular congestion without overt pulmonary edema. 2. Linear bilateral opacities which favor atelectasis. An infectious process could appear similar alt [place] is considered less likely. ACT 112: Negative or not required by law. Electronically signed by: Cruz Berman M.D. 04/20/2022 5:03 PM
[2022-04-20] MEDS: ACETAMINOPHEN 325 MG TAB PO PRN ×2 (18:10→22:12)
[2022-04-20] MEDS: ADVANCED PROBIOTIC 1250 MG CAPSULE PO SCH (18:40)
[2022-04-20] MEDS: PIPERACILLIN/TAZOBACTAM 4.5 GM in DEXTROSE 5% 100 ML IV SCH (22:12)
[2022-04-21] MEDS: PIPERACILLIN/TAZOBACTAM 4.5 GM in DEXTROSE 5% 100 ML IV SCH ×3 (05:57→22:42)
[2022-04-21] MEDS ORDERED: Nursing to Pharmacy Communication SCH ×2 (06:45→15:45)
[2022-04-21] MEDS: LANTUS PER UNIT CHARGE SQ SCH ×2 (08:13→21:06)
[2022-04-21] MEDS: INSULIN ASPART PER UNIT SC SCH ×4 (08:18→21:06)
[2022-04-21] MEDS: ADVANCED PROBIOTIC 1250 MG CAPSULE PO SCH (08:21)
[2022-04-21] MEDS: SPIRONOLACTONE 25 MG TAB PO SCH (08:25)
[2022-04-21] MEDS: METOPROLOL TARTRATE 25 MG TAB PO SCH ×2 (08:26→21:06)
[2022-04-21] MEDS: FUROSEMIDE 40 MG TAB PO SCH (08:26)
[2022-04-21] MEDS: NYSTATIN OINT 15 GM TUBE EXT SCH (08:27)
[2022-04-21] MEDS: DAPTOmycin 675 MG in SYRINGE 0 ML IV SCH (08:28)
[2022-04-21 08:46] LABS: Mean Corpuscular Hgb Conc 33.3 g/dL (32.0-36.0); Mean Corpuscular Volume 92.9 fL (80.0-100.0); Mean Platelet Volume 9.7 fL (9.4-12.3); Platelet Count 215 K/uL (130-400); RDW Coefficient of Variation 14.4 % (11.5-14.5); RDW Standard Deviation 49.6 fL (36.4-46.3); Red Blood Count 3.23 M/uL (3.93-5.22); White Blood Count 6.62 K/ul (4.8-10.8)
--- NOTE | 2022-04-21 09:14 | Ultrasound Report ---
US arterial duplex LE BI HISTORY: 61 years-old Female non healing wounds chronic nonhealing wounds of the lower extremities COMPARISON: None TECHNIQUE: Multiple real-time sonographic images of the lower extremity arterial structures were obta ined assessing grayscale appearance, color and spectral flow FINDINGS: RIGHT: Triphasic waveforms within the common femoral, superficial femoral and anterior tibial arteries with monophasic waveforms extending from the popliteal artery into the lower leg. No arterial occlusion or significantly elevated peak systolic velocities within the right lower extremity. Atherosclerotic pl aque is noted. LEFT: Triphasic waveforms within the common femoral, superficial femoral and anterior tibial arteries with monophasic waveforms extending from the popliteal artery into the lower leg. No arterial occlusion or significantly elevated peak systolic velocities within the left lower extremity. Atherosclerotic bri que is noted. Distal portions of the anterior tibial, peroneal, posterior tibial and dorsalis pedis arteries aren't able to be visualized secondary to overlying bandages. ABIs were also unable to be obtained secondar y to these same reasons. IMPRESSION: 1. No arterial occlusion or significantly elevated peak systolic velocities identified to suggest hig h-grade stenosis. 2. Limited exam as above. 3. Monophasic waveforms of the lower legs. ACT 112: Negative or not required by law. The above report was generated using voice recognition software. It may contain grammatical, syntax o r spelling errors. Electronically signed by: Michael Rodriguez M.D. 04/21/2022 9:12 AM
[2022-04-21 09:24] LABS: Creatinine Clr Calc Pharmacy 156.3 ml/min; Est GFR (African American) 122.7 ml/min; Est GFR (Non-African American) 105.9 ml/min; Potassium 3.3 mmol/L (3.5-5.1)
--- NOTE | 2022-04-21 09:43 | Consultation ---
Date of Consultation April 21, 2022 Assessment & Plan (1) Peripheral arterial disease: Pt with mild PAD and good runoff to feet. Has palpable pulses and good cap refill on exam. No indications for vascular surgical intervention at this time. Please call if needed. 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 Pt unsure how long the ulcers have been present. Denies any pain associated with the ulcers. Is scheduled for buttock wound debridement later today by general surgery. No hx of PAD in past. Per orthopedic notes, there was bleeding noted with bedside debridement yesterday. Pt denies claudication, as she ambulates very little at this time. Denies rest pain, discoloration of toes, BOBBY, fever, chest pain, SOB, abd pain, N/V, other complaints. BLE arterial US demonstrates mild diffuse disease in BLE, without focal stenoses. Triphasic runoff to feet. Allergies Allergy/AdvReac Type Severity Reaction Status Date / Time No Known Allergies Allergy Verified 04/19/22 10:23 Home Medications Medication Instructions Recorded Confirmed Type blood sugar diagnostic (FortresswareTouch #50 ea 04/14/22 04/19/22 Rx Ultra Test strips) blood-glucose meter (FortresswareTouch #1 ea 04/14/22 04/19/22 Rx Ultra2 Meter) daptomycin 500 mg intravenous 650 mg IV Q24H #34 ea 04/14/22 04/19/22 Rx solution furosemide 40 mg tablet 40 mg PO QAM #30 tabs 04/14/22 04/19/22 Rx lancets 33 gauge (OneTouch Delica #100 ea 04/14/22 04/19/22 Rx Lancets) metformin 500 mg tablet,extended 1,000 mg PO BIDM #120 tabs 04/14/22 04/19/22 Rx release 24 hr metoprolol tartrate 25 mg tablet 25 mg PO BID #60 tabs 04/14/22 04/19/22 Rx spironolactone 25 mg tablet 25 mg PO DAILY #30 tabs 04/14/22 04/19/22 Rx Patient History Medical History Aortic stenosis Chronic diastolic CHF (congestive heart failure) Cirrhosis MSSA bacteremia Urinary retention Surgical History No significant past surgical history Family History Other Family history non-contributory Social History Smoking Status: Never smoker Second Hand Exposure: No; Hx Alcohol Use: No Hx Substance Use: No Preferred Language: Luxembourgish Communication Ability: Effective Cardiology Rn Required: No Beliefs That Will Affect Care: None marital status: Current Living Situation: Spouse Current Living Situation Comment: one story set up, 1 step to enter How many Children do You have: 1 Other Information That Helps Us Care for You: No Feels Safe at Home: Yes Safety Concerns: Feels Safe At This Time Assistive Devices: Cane and Walker Review of Systems Review of Systems: All systems reviewed & are unremarkable except as noted in HPI & below Physical Exam Constitutional: WD/WN, vitals as above + morbidly obese, + disheveled and cooperative; not in distress Neck: trachea midline Respiratory: normal respiratory effort, lungs clear to auscultation Auscultation: + diminished lung sounds Cardiovascular: Rate/Rhythm: regular rate and regular rhythm Vessels: posterior tibial pulses present, dorsalis pedis pulses present, brachial pulses present and radial pulses present; + abnormal peripheral pulses Extremities: normal capillary refill Gastrointestinal (Abdomen): Inspection/Auscultation: abdomen normal to inspection and normal bowel sounds Percussion/Palpation: abdomen soft; abdomen nontender Musculoskeletal: no cyanosis or clubbing, extremities motor strength 5/5 Skin: + ulcer (buttock, BL lateral ankles, R toe) healthy tissue to ankle ulceration Neurologic: moves all extremities and awake; no focal motor deficits and not confused Psychiatric: A+Ox3, euthymic affect Results & Data ([facility]) Vital Signs (Past 12 Hours) Vital Signs Temp Pulse Resp BP Pulse Ox O2 Del Method O2 Flow Rate 04/21/22 07:37 36.9 C 89 16 118/69 96 Nasal Cannula 2 04/20/22 22:34 Nasal Cannula 2
--- NOTE | 2022-04-21 10:55 | Anesthesiology Consultation ---
Date of Service April 21, 2022 Assessment & Plan Consults Requested none ASA ASA4 Proposed Anesthesia Anesthesia Type: General Anesthesia Line Insertion: Arterial line Risk / Benefits Reviewed With: PT / POA / Parent / Guardian, Accepts Plan and Informed Consent Obtained Additional Comments: Pt informed that she will likely require removal of tongue loose tooth to prevent aspiration. Will attempt to save tooth, but unlikely. Pt understands. Pt accepts risks of MS/CVA/ periop d/t signigifcant medical comorbidities. All questions answered. K being replaced currently by medicine. History Surgery Operation Date: 04/21/22 12:30 Proposed Procedures p Left Buttock Wound Debridement - Andi Enriquez MD Height/Weight Height: 5 ft 3 in Weight: 122.47 kg Allergies Allergy/AdvReac Type Severity Reaction Status Date / Time No Known Allergies Allergy Verified 04/19/22 10:23 Medications Home Medications Medication Instructions Recorded Confirmed Last Taken blood sugar diagnostic (OneTouch #50 ea 04/14/22 04/19/22 Unknown Ultra Test strips) blood-glucose meter (OneTouch #1 ea 04/14/22 04/19/22 Unknown Ultra2 Meter) daptomycin 500 mg intravenous 650 mg IV Q24H #34 ea 04/14/22 04/19/22 Unknown solution furosemide 40 mg tablet 40 mg PO QAM #30 tabs 04/14/22 04/19/22 Unknown lancets 33 gauge (OneTouch Delica #100 ea 04/14/22 04/19/22 Unknown Lancets) metformin 500 mg tablet,extended 1,000 mg PO BIDM #120 tabs 04/14/22 04/19/22 Unknown release 24 hr metoprolol tartrate 25 mg tablet 25 mg PO BID #60 tabs 04/14/22 04/19/22 Unknown spironolactone 25 mg tablet 25 mg PO DAILY #30 tabs 04/14/22 04/19/22 Unknown Active Medications Generic Name Dose Route Start Last Admin Trade Name Freq PRN Reason Stop Dose Admin Acetaminophen 650 mg 04/19/22 14:59 04/20/22 22:12 Acetaminophen 325 Mg Tab PO 05/19/22 14:58 650 mg Q4H PRN Administration pain/fever Enoxaparin Sodium 40 mg 04/19/22 15:15 04/19/22 17:34 Enoxaparin Inj 40 Mg/0.4 Ml Syr SQ 05/19/22 15:14 40 mg Q24H ERAN Administration Furosemide 40 mg 04/20/22 09:00 04/21/22 08:26 Furosemide 40 Mg Tab PO 05/20/22 08:59 40 mg QAM ERAN Administration Heparin Sodium (Beef Lung) 5 ml 04/20/22 01:28 04/20/22 18:11 Heparin 10 Unit/Ml 5 Ml Flush FLUSH 05/20/22 01:27 5 ml PRN PRN Administration Flush Daptomycin 675 mg/ Syringe 13.5 mls @ 0 mls/min 04/20/22 09:00 04/21/22 08:28 IV 05/04/22 08:59 13.5 mls/min Q24H ERAN Administration Protocol Piperacillin Sod/Tazobactam 120 mls @ 28.75 mls/hr 04/20/22 22:00 04/21/22 10:15 Sod 4.5 gm/ Dextrose IV 04/27/22 21:59 Infused Q8H ERAN Infusion Protocol Insulin Aspart 0 units 04/21/22 06:45 04/21/22 08:18 Insulin Aspart Per Unit SC 05/21/22 06:44 1 units Q6 ERAN Administration Insulin Glargine 8 units 04/19/22 21:00 04/21/22 08:13 Lantus Per Unit Charge SQ 05/19/22 20:59 Not Given BID ERAN Lactobacillus Acidophilus 2 cap 04/20/22 17:45 04/21/22 08:21 Advanced Probiotic 1250 Mg Capsule PO 05/20/22 17:44 2 cap DAILY ERAN Administration Metoprolol Tartrate 25 mg 04/19/22 21:00 04/21/22 08:26 Metoprolol Tartrate 25 Mg Tab PO 05/19/22 20:59 25 mg BID ERAN Administration Spironolactone 25 mg 04/20/22 09:00 04/21/22 08:25 Spironolactone 25 Mg Tab PO 05/20/22 08:59 25 mg DAILY ERAN Administration NPO Date Last Intake of Fluids: 04/20/22 Time Last Intake of Fluids: 10:00 Date Last Intake of Solids: 04/20/22 Time Last Intake of Solids: 18:00 Past Medical History Medical History Acute metabolic encephalopathy Ambulatory dysfunction Aortic stenosis FRIDA 1.1cm2 04/04/22 Chronic diastolic CHF (congestive heart failure) Cirrhosis Dilated cardiomyopathy Generalized weakness Mitral regurgitation Morbid obesity with BMI of 50.0-59.9, adult MSSA bacteremia Peripheral arterial disease Pressure ulcers of skin of multiple topographic sites Type 2 diabetes mellitus Urinary retention Wound of left buttock Exercise / Class Metabolic Activity III < 4 Walking/Shop/Light housework Past Family History Family History Other Family history non-contributory Past Surgical History Surgical History No significant past surgical history Past Anesthesia History No Hx of Anesthesia Complications and No Family Hx of Anesthesia Complications History of PONV No Hx of PONV and No Hx of Motion Sickness Social History Smoking Status: Never smoker Hx Alcohol Use: No Hx Substance Use: No Review of Systems ROS Unobtainable: All systems reviewed & are unremarkable except as noted in HPI & below Physical Exam Vital Signs Last Vital Signs Temp 36.5 C 04/21/22 10:58 Pulse 73 04/21/22 10:58 Resp 18 04/21/22 10:58 BP 120/62 04/21/22 10:58 Pulse Ox 93 04/21/22 10:58 O2 Del Method 04/21/22 10:58 O2 Flow Rate 1 04/21/22 08:00 Constitutional WD/WN, vitals as above + morbidly obese; no acute distress ENMT Mouth: + dental caries, + poor dentition (2.5 teeth remain. one broken/black, 1 very tongue loose, 1 loose) and + macroglossia Thyromental Distance: > or= 3.5 Finger Breadths Mallampati Class: III Neck trachea midline, no thyromegaly Respiratory normal respiratory effort, lungs clear to auscultation Cardiovascular Rate/Rhythm: regular rate and regular rhythm Heart Sounds: normal S1, normal S2 and + murmur (3/6 DARRIAN 2nd ICS) Vessels: + carotid bruit (bilateral) Musculoskeletal Head/Neck/Chest: normocephalic and head atraumatic Spine: normal cervical ROM Psychiatric Orientation: alert and oriented x 3 Testing Laboratory Results 04/21/22 08:21 04/21/22 08:21 Urine Color Yellow 04/19/22 18:50 Urine Appearance Clear (Clear) 04/19/22 18:50 Urine pH 5.5 (4.5-7.5) 04/19/22 18:50 Ur Specific [place] 1.014 (1.000-1.030) 04/19/22 18:50 Urine Protein Trace (Negative) H 04/19/22 18:50 Urine Glucose (UA) Negative (Negative) 04/19/22 18:50 Urine Ketones Negative (Negative) 04/19/22 18:50 Urine Nitrite Negative (Negative) 04/19/22 18:50 Ur Leukocyte Esterase Negative (Negative) 04/19/22 18:50 Urine WBC (Auto) 1-5 /hpf (0-5) 04/19/22 18:50 Urine RBC (Auto) 0-4 /hpf (0-4) 04/19/22 18:50 U Hyaline Cast (Auto) 5-10 /lpf (0-5) H 04/19/22 18:50 U Epithel Cells (Auto) 10-20 /lpf (0-5) H 04/19/22 18:50 Urine Bacteria (Auto) Negative (Negative) 04/19/22 18:50 04/19/22 18:50 Urine Culture - Preliminary Urine,Straight Cath Yeast 04/19/22 15:45 Gram Stain - Final Buttock,Left Wound Culture - Final Low counts mixed probable gastrointestinal microbiota. No further identifications or sensitivities to follow. 04/19/22 15:45 Gram Stain - Final Ankle,Left Wound Culture - Preliminary Pin-point growth present, reincubating. 04/21/22 04/21/22 11:02 05:59 POC Glucose 144 H 151 H Electrocardiogram Date: 04/19/22 Findings: + ST @ (102) LAD with PVCs, ST changes lateral leads, inf/anterolateral infarct prior to 04/04 no sig change from 04/04/22 Chest X-Ray Date: 04/19/22 XR chest 1V portable CLINICAL HISTORY: hypoxia COMPARISON STUDY: Chest CT April 04, 2022. Chest radiograph April 19, 2022. FINDINGS: Right PICC is in place. No pneumothorax or pleural effusion is present. Cardiomegaly is unchanged. Patient is rotated. Interstitial thickening is again noted. Linear bilateral opacities persist. There is no lobar consolidation. IMPRESSION: 1. Cardiomegaly. Mild interstitial thickening. This may reflect pulmonary vascular congestion without overt pulmonary edema. 2. Linear bilateral opacities which favor atelectasis. An infectious process could appear similar although is considered less likely. Echocardiogram Date: 04/04/22 EF: 50-55 LV Function: low NL Valvular Disease: + (severe 1.1cm FRIDA) and + MR (moderal with annular calcification) RVSP 30-40mmHg, mod dilaterd boderline global hypoK LV, mild LAD
--- NOTE | 2022-04-21 11:08 | Infectious Disease Consult ---
Date of Consultation April 21, 2022 Assessment & Plan (1) Pressure ulcers of skin of multiple topographic sites: (2) MSSA bacteremia: (3) Wound of left buttock: Plan 61 yo female with PMH chronic diastolic CHF, aortic stenosis, DM type II, liver cirrhosis, recent admission after fall found to have MSSA bacteremia on Daptomycin therapy who was readmitted to [facility] on 04/20 for worsening sacral and LE wound. ID consulted for antibiotic management. Large left buttock ulcer with inflammatory stranding and deep tissue gas. w/ cellulitis with myositis. No drainable fluid collection. MRI of ankle ordered but stopped and not completed (notes state patient aborted study) . 04/20 Xray L ankle negative for gas or osteomyelitis. 04/20 Arterial dopplers of LE showed no significant stenosis. Patient was started on IV Daptomycin (continued) and Given Cefepime but changed to Zosyn. Plans for OR debridement today. Recommend: Please send cultures (bacterial, fungal) from OR today I have added Clindamycin 900mg IV q8 hours given imaging findings, anticipate use for 48 hours in case of toxin production L foot wound appears improved no active infection C/W Daptomycin, check CPK C/W Zosyn ID will follow with you. I am available by page tomorrow and will return to service on Monday 04/23 Kimberly Gunn MD [facility], [facility] Consultation Information Consultation was provided via telemedicine using two-way real-time interactive telecommunication between the patient and the telemedicine provider. For the duration of the visit, the provider was performing the assessment from a different facility than the patient. This includesuse of bluetooth stethoscope forauscultationperformed by the telepresenter that the telemedicine provider can hear if described in the physical exam. Physician Office Nurse contact information: Please call [facility] Center . (Phone Number For Physician Use Only) After establishing a telemedicine visit, patient was: Patient was verified with two unique identifiers, Patient/authorized rep acknowledged consent and understanding and Gave permission to continue telehealth session History of Present Illness Reason for Consultation: Necrotic wound lesion Requesting Physician: Dr. Gotti Attending Physician: Narciso Gotti MD History of Present Illness 61 yo female with PMH chronic diastolic CHF, aortic stenosis, DM type II, liver cirrhosis, recent admission after fall found to have MSSA bacteremia on Daptomycin therapy who was readmitted to [facility] on 04/20 for worsening sacral and LE wound. ID consulted for antibiotic management. Patient recently admitted to [facility] 04/04 through 04/14 after not receiving care for many years and was found to have acute diastolic CHF, aortic stenosis, multiple lower extremity wounds, imaging findings suggestive of cirrhosis, and MSSA bacteremia. Patient declined JILLIAN. She was discharged on IV Cefazolin with plans for 6 week course through 05/07/22. (04/06-05/07) Patient was changed to IV Daptomycin but unclear when this happened. MSSA thought to be secondary to skin translocation from fall. Patient was discharged on IV daptomycin daily which she has been receiving through [facility]. Daughter is concerned about buttock wound and left ankle wound and patient brought back to ED. On admission VS showed mildly low BP with tachycardia. EKG concerning for acute ischemia. CBC, CMP essentially unremarkable. CXR confirmed PICC line but also showed some interstitial opacities. CT read Large left buttock ulcer with inflammatory stranding and deep tissue gas. w/ cellulitis with myositis. No drainable fluid collection. MRI of ankle ordered but stopped and not completed (notes state patient aborted study) . 04/20 Xray L ankle negative for gas or osteomyelitis. 04/20 Arterial dopplers of LE showed no significant stenosis. Patient was started on IV Daptomycin (continued) and Given Cefepime but changed to Zosyn. ID was consulted on 04/21 On my interview, she is able to answer minimal questions. ROS difficult to ascertain. Allergies Allergy/AdvReac Type Severity Reaction Status Date / Time No Known Allergies Allergy Verified 04/19/22 10:23 Home Medications Medication Instructions Recorded Confirmed Type blood sugar diagnostic (Zero2IPO #50 ea 04/14/22 04/19/22 Rx Ultra Test strips) blood-glucose meter ([employer] #1 ea 04/14/22 04/19/22 Rx Ultra2 Meter) daptomycin 500 mg intravenous 650 mg IV Q24H #34 ea 04/14/22 04/19/22 Rx solution furosemide 40 mg tablet 40 mg PO QAM #30 tabs 04/14/22 04/19/22 Rx lancets 33 gauge ([employer] Delica #100 ea 04/14/22 04/19/22 Rx Lancets) metformin 500 mg tablet,extended 1,000 mg PO BIDM #120 tabs 04/14/22 04/19/22 Rx release 24 hr metoprolol tartrate 25 mg tablet 25 mg PO BID #60 tabs 04/14/22 04/19/22 Rx spironolactone 25 mg tablet 25 mg PO DAILY #30 tabs 04/14/22 04/19/22 Rx Patient History Medical History Acute metabolic encephalopathy Ambulatory dysfunction Aortic stenosis FRIDA 1.1cm2 04/04/22 Chronic diastolic CHF (congestive heart failure) Cirrhosis Dilated cardiomyopathy Generalized weakness Mitral regurgitation Morbid obesity with BMI of 50.0-59.9, adult MSSA bacteremia Peripheral arterial disease Pressure ulcers of skin of multiple topographic sites Type 2 diabetes mellitus Urinary retention Wound of left buttock Surgical History No significant past surgical history Family History Other Family history non-contributory Social History Smoking Status: Never smoker Second Hand Exposure: No; Hx Alcohol Use: No Hx Substance Use: No Preferred Language: Belarusian Communication Ability: Effective 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 Operator 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: No Beliefs That Will Affect Care: None marital status: Current Living Situation: Spouse Current Living Situation Comment: one story set up, 1 step to enter How many Children do You have: 1 Other Information That Helps Us Care for You: No Feels Safe at Home: Yes Safety Concerns: Feels Safe At This Time Assistive Devices: None Review of System Unable to gather, see HPI Physical Exam Constitutional: WD/WN, vitals as above Respiratory: normal respiratory effort, lungs clear to auscultation Cardiovascular: Distant Gastrointestinal (Abdomen): normal bowel sounds, soft, nontender, no hepatospl enomegaly Skin: Left buttock large draining lesions about 5cm deep, difficult to see depth given amount of purulent drainage L foot open ulcer about 2cm circumfrence, well circumbscribed. No obvious probe to bone Results & Data ([facility]) Vital Signs (Past 12 Hours) Vital Signs Temp Pulse Resp BP Pulse Ox O2 Del Method O2 Flow Rate 04/21/22 10:58 36.5 C 73 18 120/62 93 Room Air 04/21/22 08:00 94 Nasal Cannula 1 04/21/22 09:00 92 Room Air 04/21/22 07:45 Nasal Cannula 2 04/21/22 07:37 36.9 C 89 16 118/69 96 Nasal Cannula 2 Laboratory Results Laboratory Results - last 48 hr 04/19/22 04/19/22 04/19/22 17:00 18:50 20:17 WBC RBC Hgb Hct MCV MCH MCHC RDW Std Deviation RDW Coeff of Chintan Plt Count MPV Sodium Potassium Chloride Carbon Dioxide Anion Gap BUN Creatinine Est Cr Clr Drug Dosing Est GFR ( Amer) Est GFR (Non-Af Amer) BUN/Creatinine Ratio Glucose POC Glucose 171 H 178 H Lactate Calcium Magnesium Urine Color Yellow Urine Appearance Clear Urine pH 5.5 Ur Specific [place] 1.014 Urine Protein Trace H Urine Glucose (UA) Negative Urine Ketones Negative Urine Blood 1+ H Urine Nitrite Negative Urine Bilirubin Negative Urine Urobilinogen Negative Ur Leukocyte Esterase Negative Urine WBC (Auto) 1-5 Urine RBC (Auto) 0-4 U Hyaline Cast (Auto) 5-10 H U Epithel Cells (Auto) 10-20 H Urine Bacteria (Auto) Negative Urine Yeast Budding A 04/20/22 04/20/22 04/20/22 00:02 00:03 06:25 WBC 8.19 RBC 3.20 L Hgb 10.2 L Hct 29.9 L MCV 93.4 MCH 31.9 MCHC 34.1 RDW Std Deviation 50.4 H RDW Coeff of Chintan 14.6 H Plt Count 220 MPV 10.8 Sodium 131 L Potassium 3.6 Chloride 96 L Carbon Dioxide 28 Anion Gap 7 BUN 13 Creatinine 0.46 L Est Cr Clr Drug Dosing 163.1 Est GFR ( Amer) 124.4 Est GFR (Non-Af Amer) 107.4 BUN/Creatinine Ratio 28.3 H Glucose 137 H POC Glucose Lactate 0.9 Calcium 8.0 L Magnesium Urine Color Urine Appearance Urine pH Ur Specific [place] Urine Protein Urine Glucose (UA) Urine Ketones Urine Blood Urine Nitrite Urine Bilirubin Urine Urobilinogen Ur Leukocyte Esterase Urine WBC (Auto) Urine RBC (Auto) U Hyaline Cast (Auto) U Epithel Cells (Auto) Urine Bacteria (Auto) Urine Yeast 04/20/22 04/20/22 04/20/22 08:16 12:08 16:02 WBC RBC Hgb Hct MCV MCH MCHC RDW Std Deviation RDW Coeff of Chintan Plt Count MPV Sodium Potassium Chloride Carbon Dioxide Anion Gap BUN Creatinine Est Cr Clr Drug Dosing Est GFR ( Amer) Est GFR (Non-Af Amer) BUN/Creatinine Ratio Glucose POC Glucose 158 H 168 H Lactate 0.8 Calcium Magnesium Urine Color Urine Appearance Urine pH Ur Specific [place] Urine Protein Urine Glucose (UA) Urine Ketones Urine Blood Urine Nitrite Urine Bilirubin Urine Urobilinogen Ur Leukocyte Esterase Urine WBC (Auto) Urine RBC (Auto) U Hyaline Cast (Auto) U Epithel Cells (Auto) Urine Bacteria (Auto) Urine Yeast 04/20/22 04/20/22 04/21/22 16:24 20:32 05:59 WBC RBC Hgb Hct MCV MCH MCHC RDW Std Deviation RDW Coeff of Chintan Plt Count MPV Sodium Potassium Chloride Carbon Dioxide Anion Gap BUN Creatinine Est Cr Clr Drug Dosing Est GFR ( Amer) Est GFR (Non-Af Amer) BUN/Creatinine Ratio Glucose POC Glucose 137 H 166 H 151 H Lactate Calcium Magnesium Urine Color Urine Appearance Urine pH Ur Specific [place] Urine Protein Urine Glucose (UA) Urine Ketones Urine Blood Urine Nitrite Urine Bilirubin Urine Urobilinogen Ur Leukocyte Esterase Urine WBC (Auto) Urine RBC (Auto) U Hyaline Cast (Auto) U Epithel Cells (Auto) Urine Bacteria (Auto) Urine Yeast 04/21/22 04/21/22 04/21/22 08:21 08:21 08:21 WBC 6.62 RBC 3.23 L Hgb 10.0 L Hct 30.0 L MCV 92.9 MCH 31.0 MCHC 33.3 RDW Std Deviation 49.6 H RDW Coeff of Chintan 14.4 Plt Count 215 MPV 9.7 Sodium 136 Potassium 3.3 L Chloride 100 Carbon Dioxide 30 Anion Gap 6 BUN 12 Creatinine 0.48 L Est Cr Clr Drug Dosing 156.3 Est GFR ( Amer) 122.7 Est GFR (Non-Af Amer) 105.9 BUN/Creatinine Ratio 25.0 H Glucose 129 H POC Glucose Lactate Calcium 8.0 L Magnesium 2.0 Urine Color Urine Appearance Urine pH Ur Specific [place] Urine Protein Urine Glucose (UA) Urine Ketones Urine Blood Urine Nitrite Urine Bilirubin Urine Urobilinogen Ur Leukocyte Esterase Urine WBC (Auto) Urine RBC (Auto) U Hyaline Cast (Auto) U Epithel Cells (Auto) Urine Bacteria (Auto) Urine Yeast 04/21/22 04/21/22 11:02 14:08 WBC RBC Hgb Hct MCV MCH MCHC RDW Std Deviation RDW Coeff of Chintan Plt Count MPV Sodium Potassium Chloride Carbon Dioxide Anion Gap BUN Creatinine Est Cr Clr Drug Dosing Est GFR ( Amer) Est GFR (Non-Af Amer) BUN/Creatinine Ratio Glucose POC Glucose 144 H 143 H Lactate Calcium Magnesium Urine Color Urine Appearance Urine pH Ur Specific [place] Urine Protein Urine Glucose (UA) Urine Ketones Urine Blood Urine Nitrite Urine Bilirubin Urine Urobilinogen Ur Leukocyte Esterase Urine WBC (Auto) Urine RBC (Auto) U Hyaline Cast (Auto) U Epithel Cells (Auto) Urine Bacteria (Auto) Urine Yeast Microbiology 04/19/22 18:50 Urine,Straight Cath Urine Culture - Final Yeast not Rola albicans/dub 04/19/22 15:45 Ankle,Left Gram Stain - Final 04/19/22 15:45 Ankle,Left Wound Culture - Final Yeast not Rola albicans/dub 04/19/22 15:45 Buttock,Left Gram Stain - Final 04/19/22 15:45 Buttock,Left Wound Culture - Final Low counts mixed probable gastrointestinal microbiota. No further identifications or sensitivities to follow. Diagnostic Findings Chest X-Ray 04/19/22 11:24 XR chest 1V portable CLINICAL HISTORY: generalized weakness; check PICC line placement COMPARISON STUDY: Chest CT April 04, 2022. Chest radiograph April 05, 2022. FINDINGS: Right PICC is appropriately positioned. Tip projects over the cavoatrial junction. There is no pneumothorax or pleural effusion. Cardiomegaly is unchanged. Interstitial thickening and bilateral opacities are noted. These have improved since prior exam. IMPRESSION: 1. Appropriately positioned right PICC. Tip projects over the cavoatrial junction. 2. Persistent, but improved, interstitial thickening and bilateral airspace opacities. ACT 112: Negative or not required by law. Electronically signed by: Cruz Berman M.D. 04/19/2022 12:[address] 04/20/22 09:53 CT pelvis w/IV con only HISTORY: 61 years-old Female left buttock wound, eval for abscess patient presents with wound of the left buttock COMPARISON: 04/04/2022 TECHNIQUE: Axial CT images of the pelvis were obtained following the intravenous administration of 94 mL Optiray 350. A dose lowering technique was used consistent with the principals of DMITRIY. FINDINGS: Marginal nodularity of the liver is redemonstrated suspicious for cirrhosis. No hepatic mass identified. Nonspecific gallbladder wall thickening. Atherosclerosis of the aorta without aneurysm. Calcified pelvic lymph nodes are redemonstrated. 4 mm nonobstructing calculus of the inferior pole left kidney. Decompressed urinary bladder with Lozano catheter in place. Postmenopausal endometrium appears to be mildly thickened. No bowel obstruction or bowel wall thickening. Moderate colonic fecal retention. Normal appendix. Small fat filled periumbilical hernia, diastases of 2.7 cm. There is a large left buttock soft tissue wound measuring approximately 3.8 cm transversely. There is a large amount of air and/or packing material extending into the wound into the proximal left thigh. This is most pronounced medially however air and inflammatory stranding tracks into the hamstring and abductor musculature. No drainable fluid collection. Degenerative changes of the spine, pelvis and hips. No acute fracture. No destructive bone lesion. IMPRESSION: 1. Large left buttock ulcer with inflammatory stranding and deep tissue gas. Findings may be secondary to recent intervention, however should be correlated clinically to exclude fasciitis. Additionally, there is evidence of associated cellulitis with myositis. No drainable fluid collection. 2. No bowel obstruction or bowel wall thickening. 3. Left nephrolithiasis. 4. Nonspecific gallbladder wall thickening. Findings could be correlated with ultrasound. 5. Additional findings as above. ACT 112: Negative or not required by law. The above report was generated using voice recognition software. It may contain grammatical, syntax or spelling errors. Electronically signed by: Michael Rodriguez M.D. 04/20/2022 3:01 PM Ankle MRI 04/20/22 09:58 MR ankle LT wo con CLINICAL HISTORY: 61 years-old Female with left lateral ankle wound, eval for osteo. Chronic pain of the left ankle COMPARISON: Left ankle radiographs of same day TECHNIQUE: Linoleum Tile Layer localizer MR images of the left ankle were performed without contrast. No additional images were obtained. FINDINGS/IMPRESSION: Limited tape maker images were obtained. The patient decided to abort the study. No diagnostic images were obtained. The patient will not be charged for this exam. ACT 112: Negative or not required by law. The above report was generated using voice recognition software. It may contain grammatical, syntax or spelling errors. Electronically signed by: Michael Rodriguez M.D. 04/20/2022 1:52 PM Ankle X-Ray 04/20/22 10:20 LEFT ANKLE 3 VIEWS CLINICAL HISTORY: Wound. FINDINGS: 3 views of the left ankle are correlated with CT scan of the left tibia and fibula dated 04/04/2022. The skeletal structures are osteopenic. No fracture is seen. There is no bony erosion or periostitis. The ankle mortise is intact. No joint effusion is identified. There is a large plantar heel spur. Degenerative spurring is seen along the dorsal aspect of the tarsal bones. Soft tissue edema is present throughout the left lower extremity. There is advanced atherosclerotic calcification of the regional arteries. Phleboliths are noted in the calf. No soft tissue gas is seen. IMPRESSION: 1. Soft tissue swelling with no acute bony abnormality identified. 2. Osteopenia with degenerative change and a large heel spur as above. Electronically signed by: Israel Johnson M.D. 04/20/2022 12:24 PM Duplex Scan Lower Extremity Artery 04/20/22 14:59 US arterial duplex LE BI HISTORY: 61 years-old Female non healing wounds chronic nonhealing wounds of the lower extremities COMPARISON: None TECHNIQUE: Multiple real-time sonographic images of the lower extremity arterial structures were obtained assessing grayscale appearance, color and spectral flow FINDINGS: RIGHT: Triphasic waveforms within the common femoral, superficial femoral and anterior tibial arteries with monophasic waveforms extending from the popliteal artery into the lower leg. No arterial occlusion or significantly elevated peak systolic velocities within the right lower extremity. Atherosclerotic plaque is noted. LEFT: Triphasic waveforms within the common femoral, superficial femoral and anterior tibial arteries with monophasic waveforms extending from the popliteal artery into the lower leg. No arterial occlusion or significantly elevated peak systolic velocities within the left lower extremity. Atherosclerotic plaque is noted. Distal portions of the anterior tibial, peroneal, posterior tibial and dorsalis pedis arteries aren't able to be visualized secondary to overlying bandages. ABIs were also unable to be obtained secondary to these same reasons. IMPRESSION: 1. No arterial occlusion or significantly elevated peak systolic velocities identified to suggest high-grade stenosis. 2. Limited exam as above. 3. Monophasic waveforms of the lower legs. ACT 112: Negative or not required by law. The above report was generated using voice recognition software. It may contain grammatical, syntax or spelling errors. Electronically signed by: Michael Rodriguez M.D. 04/21/2022 9:12 AM Chest X-Ray 04/20/22 15:38 XR chest 1V portable CLINICAL HISTORY: hypoxia COMPARISON STUDY: Chest CT April 04, 2022. Chest radiograph April 19, 2022. FINDINGS: Right PICC is in place. No pneumothorax or pleural effusion is pres ent. Cardiomegaly is unchanged. Patient is rotated. Interstitial thickening is again noted. Linear bilateral opacities persist. There is no lobar consolidation. IMPRESSION: 1. Cardiomegaly. Mild interstitial thickening. This may reflect pulmonary vascular congestion without overt pulmonary edema. 2. Linear bilateral opacities which favor atelectasis. An infectious process could appear similar although is considered less likely. ACT 112: Negative or not required by law. Electronically signed by: Cruz Berman M.D. 04/20/2022 5:03 PM
--- NOTE | 2022-04-21 11:10 | Student Report ---
[facility] Student Progress Note Date of Service Date of service: April 21, 2022 Subjective Subjective: Pt resting comfortably in bed. States that she felt she slept better than the previous night. Denies feeling feverish, chills, night sweats. Denies CP, SOB, lightheadedness, headaches, N/V/D. Denies pain or burning with gandara. Pt understands plan for OR today for wound debridement. ROS ROS: See above for pertinent positives & negatives. A total of 10 systems reviewed and were otherwise negative. Physical Exam Physical Exam: Vital Signs Temp 36.9 C 04/21/22 07:37 Pulse 89 04/21/22 07:37 Resp 16 04/21/22 07:37 BP 118/69 04/21/22 07:37 Pulse Ox 92 04/21/22 09:00 O2 Del Method NC 04/21/22 09:00 O2 Flow Rate 1 04/21/22 08:00 Intake & Output 04/20/22 04/21/22 04/21/22 18:59 06:59 18:59 Intake Total 245 / 365 120 / 365 120 / 120 Output Total 1099 Balance -855 / -1835 -980 / -1835 120 / 120 Weight 122.47 kg 122.47 kg Intake: IV 120 / 240 120 / 240 120 / 120 Piperacillin/Tazobactam 4.5 gm 120 / 240 120 / 240 120 / 120 In Dextrose 5% 100 ml @ 28.75 mls/hr IV Q8H [facility] Rx#:[id number] Oral 125 / 125 Output: Urine Amount (Catheter) 1099 Gandara/Indwelling 1099 Other: Other Intake Source npo NPO General: Well-appearing [], in no significant distress. HEENT: No scleral icterus, PERRLA, neck supple. Atraumatic. Cardiovascular: Regular rate and rhythm, no extra sounds. Pulmonary: Clear/diminished to auscultation bilaterally, normal work of breathing. Abdomen: Soft, nontender, nondistended, positive bowel sounds. Musculoskeletal: Atraumatic, no peripheral edema. Neurologic: Patient awake alert and oriented x 3, +3 strength in all 4 extremities. Skin: Warm, dry, no rash. Wounds dressed, dry and intact. Results Results: Short CBC 04/21/22 08:21 WBC 6.62 Hgb 10.0 L Hct 30.0 L Plt Count 215 BMP 04/21/22 08:21 Sodium 136 Potassium 3.3 L Chloride 100 Carbon Dioxide 30 BUN 12 Creatinine 0.48 L Glucose 129 H Calcium 8.[address] 04/20/22 09:53 CT pelvis w/IV con only HISTORY: 61 years-old Female left buttock wound, eval for abscess patient presents with wound of the left buttock COMPARISON: 04/04/2022 TECHNIQUE: Axial CT images of the pelvis were obtained following the intravenous administration of 94 mL Optiray 350. A dose lowering technique was used co nsistent with the principals nata IZAGUIRRE. FINDINGS: Marginal nodularity of the liver is redemonstrated suspicious for cirrhosis. No hepatic mass identified. Nonspecific gallbladder wall thickening. At herosclerosis of the aorta without aneurysm. Calcified pelvic lymph nodes are redemonstrated. 4 mm nonobstructing calculus of the inferior pole left kidney. Decompressed urinary bladder with Gandara catheter in place. Postmenopausal endometrium appears to be mildly thickened. No bowel obstruction or bowel wall thickening. Moderate colonic fecal retention. Normal appendix. Small fat filled periumbilical hernia, diastases of 2.7 cm. There is a large left buttock soft tissue wound measuring approximately 3.8 cm transversely. There is a large amount of air and/or packing material extending into the wound into the proximal left thigh. This is most pronounced medially however air and inflammatory stranding tracks into the hamstring and abductor musculature. No drainable fluid collection. Degenerative changes of the spine, pelvis and hips. No acute fracture. No destructive bone lesion. IMPRESSION: 1. Large left buttock ulcer with inflammatory stranding and deep tissue gas. Findings may be secondary to recent intervention, however should be correlated clinically to exclude fasciitis. Additionally, there is evidence of associated cellulitis with myositis. No drainable fluid collection. 2. No bowel obstruction or bowel wall thickening. 3. Left nephrolithiasis. 4. Nonspecific gallbladder wall thickening. Findings could be correlated with ultrasound. 5. Additional findings as above. ACT 112: Negative or not required by law. The above report was generated using voice recognition software. It may contain grammatical, syntax or spelling errors. Electronically signed by: Michael Rodriguez M.D. 04/20/2022 3:01 PM Ankle X-Ray 04/20/22 10:20 LEFT ANKLE 3 VIEWS CLINICAL HISTORY: Wound. FINDINGS: 3 views of the left ankle are correlated with CT scan of the left tibia and fibula dated 04/04/2022. The skeletal structures are osteopenic. No fracture is seen. There is no bony erosion or periostitis. The ankle mortise is intact. No joint effusion is identified. There is a large plantar heel spur. Degenerative spurring is seen along the dorsal aspect of the tarsal bones. Soft tissue edema is present throughout the left lower extremity. There is advanced atherosclerotic calcification of the regional arteries. Phleboliths are noted in the calf. No soft tissue gas is seen. IMPRESSION: 1. Soft tissue swelling with no acute bony abnormality identified. 2. Osteopenia with degenerative change and a large heel spur as above. Electronically signed by: Israel Johnson M.D. 04/20/2022 12:24 PM Duplex Scan Lower Extremity Artery 04/20/22 14:59 US arterial duplex LE BI HISTORY: 61 years-old Female non healing wounds chronic nonhealing wounds of the lower extremities COMPARISON: None TECHNIQUE: Multiple real-time sonographic images of the lower extremity arterial structures were obtained assessing grayscale appearance, color and spectral flow FINDINGS: RIGHT: Triphasic waveforms within the common femoral, superficial femoral and anterior tibial arteries with monophasic waveforms extending from the popliteal artery into the lower leg. No arterial occlusion or significantly elevated peak systolic velocities within the right lower extremity. Atherosclerotic plaque is noted. LEFT: Triphasic waveforms within the common femoral, superficial femoral and anterior tibial arteries with monophasic waveforms extending from the popliteal artery into the lower leg. No arterial occlusion or significantly elevated peak systolic velocities within the left lower extremity. Atherosclerotic plaque is noted. Distal portions of the anterior tibial, peroneal, posterior tibial and dorsalis pedis arteries aren't able to be visualized secondary to overlying bandages. ABIs were also unable to be obtained secondary to these same reasons. IMPRESSION: 1. No arterial occlusion or significantly elevated peak systolic velocities identified to suggest high-grade stenosis. 2. Limited exam as above. 3. Monophasic waveforms of the lower legs. ACT 112: Negative or not required by law. The above report was generated using voice recognition software. It may contain grammatical, syntax or spelling errors. Electronically signed by: Michael Rodriguez M.D. 04/21/2022 9:12 AM Chest X-Ray 04/20/22 15:38 XR chest 1V portable CLINICAL HISTORY: hypoxia COMPARISON STUDY: Chest CT April 04, 2022. Chest radiograph April 19, 2022. FINDINGS: Right PICC is in place. No pneumothorax or pleural effusion is present. Cardiomegaly is unchanged. Patient is rotated. Interstitial thickening is again noted. Linear bilateral opacities persist. There is no lobar consolidation. IMPRESSION: 1. Cardiomegaly. Mild interstitial thickening. This may reflect pulmonary vascular congestion without overt pulmonary edema. 2. Linear bilateral opacities which favor atelectasis. An infectious process could appear similar although is considered less likely. ACT 112: Negative or not required by law. Electronically signed by: Cruz Berman M.D. 04/20/2022 5:03 PM A&P A&P: 1. Multiple pressure injuries: See above CT pelvis and ankle xray. Ortho completed I&D at bedside yesterday, recommended vascular consult. Arterial duplex completed, see above results. Per Vascular Surgery, pt with mild PAD but without compromised flow and no surgical intervention warranted at this time Pt had I&D of left buttock today. Cefepime changed to Zosyn for gram negative and anaerobic coverage yesterday. ID added clindamycin IV d/t CT scan findings and toxin production prophylaxis. Orthotics consult requested. 2. MSSA bacteremia: Pt continues on daily daptomycin 675mg IV for six week course ending 05/17. Weekly CBC with diff, CMP, CK until completion of regimen. Pt still needs JILLIAN to r/o vegetation. 3. Weakness/ambulatory dysfunction: Pt had multiple falls recently d/t increasing weakness. PT/OT following, will need recs for discharge planning/possible placement. Case management support for placement if required after discharge. 4. DM 2: Newly diagnosed, A1C (04/04) was 10.5. Started home metformin, holding while inpatient. Continue insulin aspart and glargine regimens. 5. /Diastolic HF (chronic): Newly diagnosed, TTE (04/04) showed EF 50-55%. Pt still requires JILLIAN to r/o vegetation. Pt appears euvolemic today, continue furosemide and spironolactone. Will need to establish cardiology provider outpatient. 6. Cirrhosis: CT scan from previous admission shows hepatomegaly with suspicion for cirrhosis. Pt will need GI follow-up after discharge. 7. DVT prophylaxis: continue lovenox subQ 8. Dispostion: Pt to OR today for I&D. PT/OT recs for placement following discharge and case management to assist with discharge planning when patient appropriate.
[2022-04-21] MEDS ORDERED: ONDANSETRON INJ 2 MG/ML 2 ML VIAL ONE (11:57)
[2022-04-21] MEDS ORDERED: MIDAZOLAM HCL 1 MG/ML 2ML VIAL ONE (11:57)
[2022-04-21] MEDS ORDERED: ROCURONIUM BROMIDE 10 MG/ML 5 ML VIAL IV ONE (11:57)
[2022-04-21] MEDS ORDERED: LIDOCAINE 2% MPF LOCAL 5 ML VIAL INFIL ONE (11:57)
[2022-04-21] MEDS ORDERED: DEXAMETHASONE SOD INJ 4 MG/ML VIAL ONE (11:57)
[2022-04-21] MEDS ORDERED: NEOSTIGMINE METHYLSULFATE 1 MG/ML 10ML VIAL ONE (11:57)
[2022-04-21] MEDS ORDERED: GLYCOPYRROLATE 0.2 MG/ML VIAL ONE (11:57)
[2022-04-21] MEDS ORDERED: PROPOFOL IV EMULSION 10 MG/ML 20 ML VIAL IV ONE (11:57)
[2022-04-21] MEDS ORDERED: fentaNYL citrate 100 MCG/2 ML VIAL ONE (11:58)
[2022-04-21] MEDS ORDERED: EPINEPHrine INJ 1 MG/ML AMP ONE (12:06)
[2022-04-21] MEDS ORDERED: KETAMINE 50 MG/5 ML SYRINGE ONE (12:09)
--- NOTE | 2022-04-21 12:12 | History & Physical Bridge Note ---
Date of Service April 21, 2022 History & Physical Bridge Note I have examined the patient, reviewed the History & Physical and in the interval since the performance of the History & Physical I have noted the following changes of clinical significance: no changes noted
[2022-04-21] MEDS ORDERED: fentaNYL citrate 100 MCG/2 ML VIAL IV PRN (12:16)
[2022-04-21] MEDS ORDERED: PHENYLEPHRINE 100MCG/ML 5ML SYR IV PRN (12:16)
[2022-04-21] MEDS ORDERED: ALBUT/IPRATROP 3MG/0.5MG NEB 3 ML VIAL INH PRN (12:16)
[2022-04-21] MEDS ORDERED: HYDROmorphone INJ 1 MG/ML SYRINGE IV PRN (12:16)
[2022-04-21] MEDS ORDERED: ONDANSETRON INJ 2 MG/ML 2 ML VIAL IV PRN (12:16)
[2022-04-21] MEDS ORDERED: MEPERIDINE HCL 25 MG/ML CARP/VIAL IV PRN (12:16)
[2022-04-21] MEDS ORDERED: ATROPINE SULFATE 0.1 MG/ML 10ML SYR IV PRN (12:16)
[2022-04-21] MEDS ORDERED: BUPIVACAINE 0.5 % 5 MG/1 ML MPF 30ML VIAL ONE (12:35)
[2022-04-21] MEDS ORDERED: SUCCINYLCHOLINE 100MG/5ML SYR IV ONE (13:18)
--- NOTE | 2022-04-21 13:49 | Post Operative Brief Note ---
Immediate Post Op Note v1 Date of Surgery April 21, 2022 Pre & Post Diagnosis Operation Date: 04/21/22 12:30 Pre-Op Diagnosis: Left Buttock Wound Post-Op Diagnosis: Left Buttock Wound I identified the patient and participated in the time-out.: Yes Procedure Operation Date: 04/21/22 12:30 Actual Procedures p Left Buttock Wound Debridement(Left) - Andi Enriquez MD Surgeon Andi Enriquez MD Air Operations Manager LITO Nugent assisted with tissue retraction, camera op, closure Estimated Blood Loss 5 Findings Consistent with Post-Op Diagnosis
--- NOTE | 2022-04-21 13:53 | Operative Report ---
Post Operative Report Pre & Post Diagnosis Operation Date: 04/21/22 12:30 Pre-Op Diagnosis: Left Buttock Wound, sacral decubitus ulcer stage IV Post-Op Diagnosis: Left Buttock Wound, sacral decubitus ulcer stage IV I identified the patient and participated in the time-out.: Yes Procedure Operation Date: 04/21/22 12:30 Actual Procedures p Left Buttock Wound, sacral decubitus ulcer stage IV debridement(Left) - Andi Enriquez MD Surgeon Andi Enriquez MD Fern Picker LITO Nugent assisted with tissue retraction, camera op, closure Estimated Blood Loss 5 Findings Consistent with Post-Op Diagnosis The wound measures 8 cm x 4 cm, 7 cm deep; tracking anteriorly 6 cm Specimens Cultures for anaerobic and aerobic Drains None Anesthesia Type General Complications No immediate complications Description of Procedure Patient was taken to the operating room. Timeout was performed, perioperative antibiotics were ministered, SCD boots were placed. After adequate anesthesia and analgesia was obtained, the patient was placed prone and was prepped and draped in the normal sterile fashion. We began by inspecting the wound. There is a significant amount of necrotic fibrinous tissue. This was excised with a scalpel. The wound tracked anteriorly, and was opened in that direction with the scalpel. Excess skin was excised posteriorly, exposing more of the underlying tissue. There was necrotic tissue, fibrinous exudate, purulent fluid extending all the way to the bone. This was all excised with Bovie electrocautery and sharp scalpel dissection. The wound was pulse irrigated with 3000 cc of fluid. Attention was turned hemostasis, which was excellent. The wound was packed with a large Kerlix soaked in saline. Dressings were applied. She tolerated the procedure without complication, was transferred in stable condition to the PACU. All instrument, needle, and sponge counts were correct at the end of the case. My multimedia production assistant was necessary throughout the procedure for tissue retraction, possible camera operation, and closure of the wounds. I understand that section 1842(b)(7)(D) of the Social Security act generally prohibits Medicare physician fee schedule payment for the services of assistants at surgery in teaching hospitals when qualified residents are available to furnish such services. I certify that the services for which payment is claimed were medically necessary and that no qualified resident was available to perform the services. I further understand that these services are subject to postpayment review by the Medicare carrier. I attest to the content of the Intraoperative Record and any orders documented therein. Any exceptions are noted below.
--- NOTE | 2022-04-21 14:44 | Anesthesiology Progress Note ---
Date of Service April 21, 2022 Anesthesia Post Procedure Vital Signs Vital Signs: Temp Pulse Pulse Resp BP BP Pulse Ox 04/21/22 14:15 91 H 14 128/78 117/93 95 04/21/22 14:35 90 16 114/70 121/65 95 04/21/22 14:25 90 14 123/73 115/77 93 04/21/22 14:05 92 H 18 128/75 115/73 99 04/21/22 13:59 36.2 C L 93 H 18 109/65 99 04/21/22 10:58 36.5 C 73 18 120/62 93 04/21/22 08:00 94 04/21/22 09:00 92 04/21/22 07:45 04/21/22 07:37 36.9 C 89 16 118/69 96 04/20/22 22:34 04/20/22 20:29 128/76 04/20/22 19:25 37.1 C 88 16 94/56 L 94 04/20/22 17:39 91 H 04/20/22 17:37 37.7 C H 101 H 20 106/71 95 04/20/22 16:26 37.1 C 89 16 114/73 96 04/20/22 15:19 37.7 C H 102 H 18 110/72 95 O2 Del Method O2 Flow Rate 04/21/22 14:15 Nasal Cannula 2 04/21/22 14:35 Nasal Cannula 2 04/21/22 14:25 Nasal Cannula 2 04/21/22 14:05 Oxymask 5 04/21/22 13:59 Oxymask 5 04/21/22 10:58 Room Air 04/21/22 08:00 Nasal Cannula 1 04/21/22 09:00 Room Air 04/21/22 07:45 Nasal Cannula 2 04/21/22 07:37 Nasal Cannula 2 04/20/22 22:34 Nasal Cannula 2 04/20/22 20:29 04/20/22 19:25 Nasal Cannula 2.0 04/20/22 17:39 04/20/22 17:37 Nasal Cannula 2 04/20/22 16:26 Nasal Cannula 2 04/20/22 15:19 Nasal Cannula 2 Pain Intensity Generalized: Pain Intensity: 4 Left Buttock: Pain Intensity: 5 Transfer of Care Handoff Completed per policy Notes Mental Status: alert / awake / arousable Patient Amnestic to Procedure: Yes Nausea / Vomiting: adequately controlled Pain: adequately controlled Airway Patency, RR, SpO2: stable & adequate BP & HR: stable & adequate Hydration State: stable & adequate Anesthetic Complications: no major complications apparent Notes: a line d/c at end of pacu w/o complications
--- NOTE | 2022-04-21 15:42 | Hospitalist Progress Note ---
Date of Service April 21, 2022 Assessment & Plan (1) Pressure ulcers of skin of multiple topographic sites: Plan: Multiple wounds scattered over body - please refer to wound care nurse documentation for full details and photos 04/20/2022 - 5cm x 5cm wound left buttock - large amount of purulent drainage expressed when rolling patient in bed. IV cefepime added to IV daptomycin patient was previously on for MSSA bacteremia. CT obtained that did not show evidence of deep abscess. General surgery consulted for debridement. In the afternoon of 04/20, patient developed low-grade fever, borderline hypotension. Lactate was obtained which was 0.8. Blood cultures obtained. Zosyn started in favor of cefepime to provide anaerobic coverage. POD#0 left buttock wound debridement Surface wound culture - Low counts mixed probable gastrointestinal microbiota. Follow OR culture Blood cultures pending 3cm x 3cm wound left lateral ankle over the malleolus - sloughing tissue present. MRI ordered to evaluate for possible osteomyelitis however patient declined study. Ortho consulted, bedside debridement preformed 04/20. Vascular consult placed by ortho. BLE arterial duplex demonstrates mild diffuse disease BLE. No indications for for vascular surgery intervention. Given the patient has declined MRI, consider CT with IV contrast Surface wound culture growing yeast not Rola albicans Consider wound vac. ID consult Clindamycin added 04/21 + Yeast on Urine Culture Urine culture growing yeast, not Rola albicans Lozano in place however was placed at time of urine sample collection No indication for treatment at this time Urinary retention Lozano in place Consider voiding trial prior to DC Urology consulted, input appreciated Hypoxia Intermittent hypoxia noted, patient currently requiring 1-2L 04/20 CXR: 1. Cardiomegaly. Mild interstitial thickening. This may reflect pulmonary vascular congestion without overt pulmonary edema. 2. Linear bilateral opacities which favor atelectasis. An infectious process could appear similar although is considered less likely. Patient on PO spironolactone and Lasix, additional diuresis was avoided due to concerns for developing sepsis Atelectasis/obesity hypoventilation likely contributing Wean O2 as able (2) MSSA bacteremia: Plan: Diagnosed during previous admission, currently on IV daptomycin Patient declined JILLIAN to evaluate for endocarditis during previous admission After discussion with pharmacist on admission, dose adjusted to 675 mg daily weight-based Will complete 6 weeks of therapy on 05/17 Needs weekly CBC with differential, CMP, CK Follow-up with ID Dr. Ellis (3) Generalized weakness: (4) Ambulatory dysfunction: Plan: Patient presenting from home with reports of generalized weakness, ambulatory dysfunction, frequent falls. Recently admitted to [facility] 04/04 through 04/14 after not receiving care for many years and was found to have acute diastolic CHF, aortic stenosis, multiple lower extremity wounds, imaging findings suggestive of cirrhosis, and MSSA bacteremia. PT/OT, case management to assist with placement (5) Type 2 diabetes mellitus: Plan: Hgb A1c 10.5 04/04/2022 Newly diagnosed during previous admission, discharged on metformin Utilize Lantus and NovoLog per protocol while hospitalized (6) Aortic stenosis: (7) Chronic diastolic CHF (congestive heart failure): Plan: Appears euvolemic, continue furosemide and spironolactone Patient to establish with [facility] cardiology (8) Cirrhosis: Plan: Appears compensated Imaging during previous admission suggestive of cirrhosis, no prior history of Patient to establish with [facility] (9) DVT prophylaxis: Plan: SQ Lovenox Admission and Anticipated Discharge Date Admission Date: April 19, 2022 Supervising Physician Co-Signing Physician Notes Patient seen and examined at bedside as a follow-up of pressure ulcers of skin of multiple topographic sites, worse left buttock pressure ulcer, MSSA bacteremia ongoing treatment with IV daptomycin, generalized weakness and a mbulatory dysfunction. Patient underwent surgical debridement in OR today by surgery for sacral wound ulcer. Infectious disease recommends adding clindamycin; patient is already on Zosyn and daptomycin. Patient was started on daptomycin last admission as it would have been difficult for her to get IV cefazolin 3 times daily. Will reach out to infectious disease if patient will require daptomycin presently. I have seen and examined the patient and have discussed the case with the provider above. I agree with the assessment and plan as stated. Subjective Follow up for generalized weakness, ambulatory dysfunction, MSSA bacteremia, multiple wounds. Patient seen and examined. Resting in bed, no acute distress. Patient more alert today than yesterday. Offers no complaints. No chest pain or shortness of breath. Denies abdominal pain or nausea. Review of Systems Review of Systems: ROS per HPI, all other systems reviewed and negative Physical Exam Constitutional: WD/WN, vitals as above + obese; no acute distress Respiratory: normal respiratory effort; no respiratory distress Auscultation: + diminished lung sounds Cardiovascular: Rate/Rhythm: regular rate and regular rhythm Heart Sounds: + murmur (Systolic, grade 3/6) Vessels: normal peripheral pulses Extremities: no edema Gastrointestinal (Abdomen): Percussion/Palpation: abdomen soft; abdomen nontender Skin: no rashes, warm and dry Neurologic: no focal motor deficits Psychiatric: A+Ox3, euthymic affect Results & Data Results & Data ([facility]) Vital Signs (Past 12 Hours) Vital Signs Temp Pulse Pulse Resp BP BP Pulse Ox 04/21/22 15:10 36.7 C 89 18 131/77 93 04/21/22 14:15 91 H 14 128/78 117/93 95 04/21/22 14:35 90 16 114/70 121/65 95 04/21/22 14:25 90 14 123/73 115/77 93 04/21/22 14:05 92 H 18 128/75 115/73 99 04/21/22 13:59 36.2 C L 93 H 18 109/65 99 04/21/22 10:58 36.5 C 73 18 120/62 93 04/21/22 08:00 94 04/21/22 09:00 92 04/21/22 07:45 04/21/22 07:37 36.9 C 89 16 118/69 96 O2 Del Method O2 Flow Rate 04/21/22 15:10 Nasal Cannula 2 04/21/22 14:15 Nasal Cannula 2 04/21/22 14:35 Nasal Cannula 2 04/21/22 14:25 Nasal Cannula 2 04/21/22 14:05 Oxymask 5 04/21/22 13:59 Oxymask 5 04/21/22 10:58 Room Air 04/21/22 08:00 Nasal Cannula 1 04/21/22 09:00 Room Air 04/21/22 07:45 Nasal Cannula 2 04/21/22 07:37 Nasal Cannula 2 Laboratory Results Short CBC 04/21/22 Range/Units 08:21 WBC 6.62 (4.8-10.8) K/ul Hgb 10.0 L (12.0-16.0) g/dl Hct 30.0 L (34.1-44.9) % Plt Count 215 (130-400) K/uL BMP 04/21/22 08:21 Sodium 136 Potassium 3.3 L Chloride 100 Carbon Dioxide 30 BUN 12 Creatinine 0.48 L Glucose 129 H Calcium 8.0 L Diagnostic Findings Duplex Scan Lower Extremity Artery 04/20/22 14:59 US arterial duplex LE BI HISTORY: 61 years-old Female non healing wounds chronic nonhealing wounds of the lower extremities COMPARISON: None TECHNIQUE: Multiple real-time sonographic images of the lower extremity arterial structures were obtained assessing grayscale appearance, color and spectral flow FINDINGS: RIGHT: Triphasic waveforms within the common femoral, superficial femoral and anterior tibial arteries with monophasic waveforms extending from the popliteal artery into the lower leg. No arterial occlusion or significantly elevated peak systolic velocities within the right lower extremity. Atherosclerotic plaque is noted. LEFT: Triphasic waveforms within the common femoral, superficial femoral and anterior tibial arteries with monophasic waveforms extending from the popliteal artery into the lower leg. No arterial occlusion or significantly elevated peak systolic velocities within the left lower extremity. Atherosclerotic plaque is noted. Distal portions of the anterior tibial, peroneal, posterior tibial and dorsalis pedis arteries aren't able to be visualized secondary to overlying bandages. ABIs were also unable to be obtained secondary to these same reasons. IMPRESSION: 1. No arterial occlusion or significantly elevated peak systolic velocities identified to suggest high-grade stenosis. 2. Limited exam as above. 3. Monophasic waveforms of the lower legs. ACT 112: Negative or not required by law. The above report was generated using voice recognition software. It may contain grammatical, syntax or spelling errors. Electronically signed by: Michael Rodriguez M.D. 04/21/2022 9:12 AM Chest X-Ray 04/20/22 15:38 XR chest 1V portable CLINICAL HISTORY: hypoxia COMPARISON STUDY: Chest CT April 04, 2022. Chest radiograph April 19, 2022. FINDINGS: Right PICC is in place. No pneumothorax or pleural effusion is present. Cardiomegaly is unchanged. Patient is rotated. Interstitial thickening is again noted. Linear bilateral opacities persist. There is no lobar consolidation. IMPRESSION: 1. Cardiomegaly. Mild interstitial thickening. This may reflect pulmonary vascular congestion without overt pulmonary edema. 2. Linear bilateral opacities which favor atelectasis. An infectious process could appear similar although is considered less likely. ACT 112: Negative or not required by law. Electronically signed by: Cruz Berman M.D. 04/20/2022 5:03 PM
[2022-04-21] MEDS: CLINDAMYCIN/D5W 900 MG/50 ML BAG IV SCH ×2 (15:57→21:01)
[2022-04-21] MEDS: ACETAMINOPHEN 325 MG TAB PO PRN ×2 (16:05→21:10)
[2022-04-21] MEDS: POTASSIUM CHLORIDE / WTR 10 MEQ/100 ML PLCT IV SCH ×4 (16:12→19:25)
[2022-04-21] MEDS: ENOXAPARIN INJ 40 MG/0.4 ML SYR SQ SCH (17:07)
[2022-04-21] MEDS ORDERED: NYSTATIN CR 15 GM TUBE EXT SCH (21:00)
[2022-04-21] MEDS: NYSTATIN POWDER 15GM BTL EXT SCH (21:07)
--- NOTE | 2022-04-21 21:12 | Electrocardiogram Report ---
Test Reason : Blood Pressure : / mmHG Vent. Rate : 102 BPM Atrial Rate : 102 BPM P-R Int : 182 ms QRS Dur : 080 ms QT Int : 342 ms P-R-T Axes : 054 -42 064 degrees QTc Int : 445 ms Sinus tachycardia with occasional Premature ventricular complexes Left axis deviation Inferior infarct (cited on or before 04-APR-2022) Anterior infarct (cited on or before 04-APR-2022) Abnormal ECG When compared with ECG of 04-APR-2022 08:22, No significant change Confirmed by Cullen Marquez ([id number]) on 04/21/2022 9:12:11 PM Referred By: REFERRED SELF Confirmed By:Cullen Marquez
[2022-04-22] MEDS: CLINDAMYCIN/D5W 900 MG/50 ML BAG IV SCH ×3 (03:28→20:22)
[2022-04-22] MEDS: PIPERACILLIN/TAZOBACTAM 4.5 GM in DEXTROSE 5% 100 ML IV SCH ×3 (05:47→22:44)
[2022-04-22] MEDS: ACETAMINOPHEN 325 MG TAB PO PRN ×2 (05:52→15:23)
[2022-04-22] MEDS: DAPTOmycin 675 MG in SYRINGE 0 ML IV SCH (08:50)
[2022-04-22] MEDS: LANTUS PER UNIT CHARGE SQ SCH ×2 (08:51→22:46)
[2022-04-22] MEDS: INSULIN ASPART PER UNIT SC SCH ×4 (08:52→22:46)
[2022-04-22] MEDS: SPIRONOLACTONE 25 MG TAB PO SCH (08:53)
[2022-04-22] MEDS: ADVANCED PROBIOTIC 1250 MG CAPSULE PO SCH (08:53)
[2022-04-22] MEDS: NYSTATIN POWDER 15GM BTL EXT SCH ×2 (08:54→20:23)
[2022-04-22] MEDS: METOPROLOL TARTRATE 25 MG TAB PO SCH ×2 (08:54→21:03)
[2022-04-22] MEDS: FUROSEMIDE 40 MG TAB PO SCH (09:01)
--- NOTE | 2022-04-22 12:17 | Surgery Progress Note ---
Date of Service April 22, 2022 Assessment & Plan (1) Wound of left buttock: Plan POD #1 status post incision, debridement, washout of sacral stage IV wound Doing well, no pain Will change dressing at the bedside tomorrow Admission and Anticipated Discharge Date Admission Date: April 19, 2022 Subjective Postoperative day 1 status post incision, debridement, washout of sacral stage IV wound. She is doing well. She denies pain. Physical Exam Physical Exam: Dressing clean dry and intact Results & Data ([facility]) Vital Signs (Past 12 Hours) Vital Signs Temp Pulse Resp BP Pulse Ox O2 Del Method O2 Flow Rate 04/22/22 09:15 Nasal Cannula 1 04/22/22 08:50 78 113/73 94 Nasal Cannula 1 04/22/22 07:08 36.6 C 75 16 115/66 93 Nasal Cannula 2 04/22/22 03:31 36.9 C 78 16 114/70 95 Nasal Cannula 1.0 04/22/22 00:30 Nasal Cannula 1
--- NOTE | 2022-04-22 14:16 | Hospitalist Progress Note ---
Date of Service April 22, 2022 Assessment & Plan (1) Pressure ulcers of skin of multiple topographic sites: Plan: Multiple wounds scattered over body - please refer to wound care nurse documentation for full details and photos 04/20/2022 - 5cm x 5cm wound left buttock - large amount of purulent drainage expressed when rolling patient in bed. IV cefepime added to IV daptomycin patient was previously on for MSSA bacteremia. CT obtained that did not show evidence of deep abscess. General surgery consulted for wound debridement; patient underwent debridement in the OR on 04/21. IV cefepime changed to Zosyn for anaerobic coverage. Clindamycin added by infectious disease. 3cm x 3cm wound left lateral ankle over the malleolus - sloughing tissue present. MRI ordered to evaluate for possible osteomyelitis however patient declined study. Ortho consulted, bedside debridement preformed 04/20. Vascular consult placed by ortho. BLE arterial duplex demonstrates mild diffuse disease BLE. No indications for for vascular surgery intervention. Plan: -Continue on Zosyn, clindamycin along with daptomycin for pressure ulcer wound. Will follow Intra-Op culture; so far positive for gram-negative bacilli. Final duration and route of antibiotics to be determined based on culture. Infectious disease on board. -Repeat blood culture is negative so far. -Dressing change as per surgery and wound care. Seen by wound care for heel pressure ulcer; waffle boots ordered for offloading. Urinary retention Lozano in place Will try trial of void after patient is more mobile. Urology were consulted. Hypoxia Intermittent hypoxia noted, patient currently requiring 1-2L Continue on Lasix and spironolactone; spironolactone dose increased to 50 mg. (2) MSSA bacteremia: Plan: Diagnosed during previous admission, currently on IV daptomycin Patient declined JILLIAN to evaluate for endocarditis during previous admission After discussion with pharmacist on admission, dose adjusted to 675 mg daily weight-based Will complete 6 weeks of therapy on 05/17 Needs weekly CBC with differential, CMP, CK Follow-up with ID Dr. Ellis (3) Generalized weakness: (4) Ambulatory dysfunction: Plan: Patient presenting from home with reports of generalized weakness, ambulatory dysfunction, frequent falls. Recently admitted to [facility] 04/04 through 04/14 after not receiving care for many years and was found to have acute diastolic CHF, aortic stenosis, multiple lower extremity wounds, imaging findings suggestive of cirrhosis, and MSSA bacteremia. PT/OT, case management to assist with placement (5) Type 2 diabetes mellitus: Plan: Hgb A1c 10.5 04/04/2022 Newly diagnosed during previous admission, discharged on metformin Utilize Lantus and NovoLog per protocol while hospitalized (6) Aortic stenosis: (7) Chronic diastolic CHF (congestive heart failure): Plan: Appears euvolemic, continue furosemide and spironolactone Patient to establish with [facility] (8) Cirrhosis: Plan: Appears compensated Imaging during previous admission suggestive of cirrhosis, no prior history of Patient to establish with [facility] (9) DVT prophylaxis: Plan: SQ Lovenox Full code Dispositionpatient was discharged home last admission despite being suggested to go to rehab. Patient would need extensive wound care and IV antibiotic. Case management on board; will need final duration and route of antibiotic from ID before discharge. Admission and Anticipated Discharge Date Admission Date: April 19, 2022 Subjective Patient seen and examined at bedside. She is lying in the bed; comfortable not in any distress. Review of Systems Review of Systems: All systems reviewed & are unremarkable except as noted in Subjective Physical Exam Physical Exam: Constitutional: Awake, alert orient x3. Not in any distress. Morbidly obese. Head: Normocephalic, Atraumatic Eyes: PERRL, conjunctivae normal, anicteric sclerae ENMT: external ear and nose normal, oropharynx normal Neck: trachea midline, no thyromegaly normal visual inspection Respiratory: normal respiratory effort, lungs clear to auscultation, no wheeze, rales, rhonchi. Normal insp/exp effort, no accessory muscle use Cardiovascular: RRR, no murmur, no edema Vessels: no JVD or carotid bruit Chest: normal inspection of chest Abdomen: normal bowel sounds, soft, nontender, no hepatosplenomegaly Musculoskeletal: no cyanosis or clubbing, extremities motor strength 5/5 Skin: no rashes, warm and dry normal turgor Neurologic: PERRL, EOMI, accommodation nl, no face palsy, no dysarthria CN's II- XI intact bilaterally and moves all extremities Psychiatric: A+Ox3, euthymic affect Lymphatic: no cervical or axillary lymphadenopathy : deferred Results & Data Results & Data ([facility]) Vital Signs (Past 12 Hours) Vital Signs Temp Pulse Resp BP Pulse Ox O2 Del Method O2 Flow Rate 04/22/22 09:15 Nasal Cannula 1 04/22/22 08:50 78 113/73 94 Nasal Cannula 1 04/22/22 07:08 36.6 C 75 16 115/66 93 Nasal Cannula 2 04/22/22 03:31 36.9 C 78 16 114/70 95 Nasal Cannula 1.0 Laboratory Results Laboratory Results WBC 6.62 K/ul (4.8-10.8) 04/21/22 08:21 RBC 3.23 M/uL (3.93-5.22) L 04/21/22 08:21 Hgb 10.0 g/dl (12.0-16.0) L 04/21/22 08:21 Hct 30.0 % (34.1-44.9) L 04/21/22 08:21 MCV 92.9 fL (80.0-100.0) 04/21/22 08:21 MCH 31.0 pg (25.0-34.0) 04/21/22 08:21 MCHC 33.3 g/dL (32.0-36.0) 04/21/22 08:21 RDW Std Deviation 49.6 fL (36.4-46.3) H 04/21/22 08:21 RDW Coeff of Chintan 14.4 % (11.5-14.5) 04/21/22 08:21 Plt Count 215 K/uL (130-400) 04/21/22 08:21 MPV 9.7 fL (9.4-12.3) 04/21/22 08:21 Immature Gran % (Auto) 0.1 % 04/19/22 11:33 Neut % (Auto) 77.1 % 04/19/22 11:33 Lymph % (Auto) 14.5 % 04/19/22 11:33 Blair % (Auto) 6.6 % 04/19/22 11:33 Eos % (Auto) 1.2 % 04/19/22 11:33 Baso % (Auto) 0.5 % 04/19/22 11:33 Neut # (Auto) 8.01 K/uL (1.4-6.5) H 04/19/22 11:33 Lymph # (Auto) 1.50 K/uL (1.2-3.4) 04/19/22 11:33 Blair # (Auto) 0.69 K/uL (0.24-0.82) 04/19/22 11:33 Eos # (Auto) 0.12 K/uL (0-0.50) 04/19/22 11:33 Baso # (Auto) 0.05 K/uL (0-0.2) 04/19/22 11:33 Immature Gran # (Auto) 0.01 K/uL (0.00-0.02) 04/19/22 11:33 Sodium 136 mmol/L (136-145) 04/21/22 08:21 Potassium 3.3 mmol/L (3.5-5.1) L 04/21/22 08:21 Chloride 100 mmol/L (98-107) 04/21/22 08:21 Carbon Dioxide 30 mmol/L (21-32) 04/21/22 08:21 Anion Gap 6 (3-11) 04/21/22 08:21 BUN 12 mg/dl (6-23) 04/21/22 08:21 Creatinine 0.48 mg/dl (0.6-1.2) L 04/21/22 08:21 Est Cr Clr Drug Dosing 156.3 ml/min 04/21/22 08:21 Est GFR ( Amer) 122.7 ml/min 04/21/22 08:21 Est GFR (Non-Af Amer) 105.9 ml/min 04/21/22 08:21 BUN/Creatinine Ratio 25.0 (10-20) H 04/21/22 08:21 Glucose 129 mg/dl (70-99(Fasting)) H 04/21/22 08:21 POC Glucose 178 mg/dl (70-99) H 04/22/22 12:13 Lactate 0.8 mmol/L (0.4-2.0) 04/20/22 16:02 Calcium 8.0 mg/dl (8.5-10.1) L 04/21/22 08:21 Magnesium 2.0 mg/dl (1.7-2.4) 04/21/22 08:21 Total Bilirubin 0.6 mg/dl (0.2-1.0) 04/19/22 11:33 AST 20 U/L (13-39) 04/19/22 11:33 ALT 9 U/L (7-52) 04/19/22 11:33 Alkaline Phosphatase 131 U/L (34-104) H 04/19/22 11:33 Total Creatine Kinase 12 U/L (26-192) L 04/22/22 08:03 Troponin I High Sens 13.5 pg/ml (0-14) D 04/19/22 11:33 B-Natriuretic Peptide 585 pg/ml (0-100) H 04/19/22 12:04 Total Protein 8.0 gm/dl (6.0-8.3) 04/19/22 11:33 Albumin 2.9 gm/dl (3.4-5.0) L 04/19/22 11:33 Globulin 5.1 gm/dl (2.5-4.0) H 04/19/22 11:33 Albumin/Globulin Ratio 0.6 (0.9-2) L 04/19/22 11:33 Urine Color Yellow 04/19/22 18:50 Urine Appearance Clear (Clear) 04/19/22 18:50 Urine pH 5.5 (4.5-7.5) 04/19/22 18:50 Ur Specific [place] 1.014 (1.000-1.030) 04/19/22 18:50 Urine Protein Trace (Negative) H 04/19/22 18:50 Urine Glucose (UA) Negative (Negative) 04/19/22 18:50 Urine Ketones Negative (Negative) 04/19/22 18:50 Urine Blood 1+ (Negative) H 04/19/22 18:50 Urine Nitrite Negative (Negative) 04/19/22 18:50 Urine Bilirubin Negative (Negative) 04/19/22 18:50 Urine Urobilinogen Negative (Negative) 04/19/22 18:50 Ur Leukocyte Esterase Negative (Negative) 04/19/22 18:50 Urine WBC (Auto) 1-5 /hpf (0-5) 04/19/22 18:50 Urine RBC (Auto) 0-4 /hpf (0-4) 04/19/22 18:50 U Hyaline Cast (Auto) 5-10 /lpf (0-5) H 04/19/22 18:50 U Epithel Cells (Auto) 10-20 /lpf (0-5) H 04/19/22 18:50 Urine Bacteria (Auto) Negative (Negative) 04/19/22 18:50 Urine Yeast Budding (None Prsent) A 04/19/22 18:50 SARS-CoV-2, RNA, NAAT NEGATIVE (NEGATIVE) 04/19/22 13:[address] 04/20/22 09:53 CT pelvis w/IV con only HISTORY: 61 years-old Female left buttock wound, eval for abscess patient presents with wound of the left buttock COMPARISON: 04/04/2022 TECHNIQUE: Axial CT images of the pelvis were obtained following the intravenous administration of 94 mL Optiray 350. A dose lowering technique was used consistent with the principals of DMITRIY. FINDINGS: Marginal nodularity of the liver is redemonstrated suspicious for cirrhosis. No hepatic mass identified. Nonspecific gallbladder wall thickening. Atherosclerosis of the aorta without aneurysm. Calcified pelvic lymph nodes are redemonstrated. 4 mm nonobstructing calculus of the inferior pole left kidney. Decompressed urinary bladder with Lozano catheter in place. Postmenopausal endometrium appears to be mildly thickened. No bowel obstruction or bowel wall thickening. Moderate colonic fecal retention. Normal appendix. Small fat filled periumbilical hernia, diastases of 2.7 cm. There is a large left buttock soft tissue wound measuring approximately 3.8 cm transversely. There is a large amount of air and/or packing material extending into the wound into the proximal left thigh. This is most pronounced medially however air and inflammatory stranding tracks into the hamstring and abductor musculature. No drainable fluid collection. Degenerative changes of the spine, pelvis and hips. No acute fracture. No destructive bone lesion. IMPRESSION: 1. Large left buttock ulcer with inflammatory stranding and deep tissue gas. Findings may be secondary to recent intervention, however should be correlated clinically to exclude fasciitis. Additionally, there is evidence of associated cellulitis with myositis. No drainable fluid collection. 2. No bowel obstruction or bowel wall thickening. 3. Left nephrolithiasis. 4. Nonspecific gallbladder wall thickening. Findings could be correlated with ultrasound. 5. Additional findings as above. ACT 112: Negative or not required by law. The above report was generated using voice recognition software. It may contain grammatical, syntax or spelling errors. Electronically signed by: Michael Rodriguez M.D. 04/20/2022 3:01 PM Ankle MRI 04/20/22 09:58 MR ankle LT wo con CLINICAL HISTORY: 61 years-old Female with left lateral ankle wound, eval for osteo. Chronic pain of the left ankle COMPARISON: Left ankle radiographs of same day TECHNIQUE: Relations Liaison localizer MR images of the left ankle were performed without contrast. No additional images were obtained. FINDINGS/IMPRESSION: Limited ring stamper images were obtained. The patient decided to abort the study. No diagnostic images were obtained. The patient will not be charged for this exam. ACT 112: Negative or not required by law. The above report was generated using voice recognition software. It may contain grammatical, syntax or spelling errors. Electronically signed by: Michael Rodriguez M.D. 04/20/2022 1:52 PM Ankle X-Ray 04/20/22 10:20 LEFT ANKLE 3 VIEWS CLINICAL HISTORY: Wound. FINDINGS: 3 views of the left ankle are correlated with CT scan of the left tibia and fibula dated 04/04/2022. The skeletal structures are osteopenic. No fracture is seen. There is no bony erosion or periostitis. The ankle mortise is intact. No joint effusion is identified. There is a large plantar heel spur. Degenerative spurring is seen along the dorsal aspect of the tarsal bones. Soft tissue edema is present throughout the left lower extremity. There is advanced atherosclerotic calcification of the regional arteries. Phleboliths are noted in the calf. No soft tissue gas is seen. IMPRESSION: 1. Soft tissue swelling with no acute bony abnormality identified. 2. Osteopenia with degenerative change and a large heel spur as above. Electronically signed by: Israel Johnson M.D. 04/20/2022 12:24 PM Duplex Scan Lower Extremity Artery 04/20/22 14:59 US arterial duplex LE BI HISTORY: 61 years-old Female non healing wounds chronic nonhealing wounds of the lower extremities COMPARISON: None TECHNIQUE: Multiple real-time sonographic images of the lower extremity arterial structures were obtained assessing grayscale appearance, color and spectral flow FINDINGS: RIGHT: Triphasic waveforms within the common femoral, superficial femoral and anterior tibial arteries with monophasic waveforms extending from the popliteal artery into the lower leg. No arterial occlusion or significantly elevated peak systolic velocities within the right lower extremity. Atherosclerotic plaque is noted. LEFT: Triphasic waveforms within the common femoral, superficial femoral and anterior tibial arteries with monophasic waveforms extending from the popliteal artery into the lower leg. No arterial occlusion or significantly elevated peak systolic velocities within the left lower extremity. Atherosclerotic plaque is noted. Distal portions of the anterior tibial, peroneal, posterior tibial and dorsalis pedis arteries aren't able to be visualized secondary to overlying bandages. ABIs were also unable to be obtained secondary to these same reasons. IMPRESSION: 1. No arterial occlusion or significantly elevated peak systolic velocities identified to suggest high-grade stenosis. 2. Limited exam as above. 3. Monophasic waveforms of the lower legs. ACT 112: Negative or not required by law. The above report was generated using voice recognition software. It may contain grammatical, syntax or spelling errors. Electronically signed by: Michael Rodriguez M.D. 04/21/2022 9:12 AM Chest X-Ray 04/20/22 15:38 XR chest 1V portable CLINICAL HISTORY: hypoxia COMPARISON STUDY: Chest CT April 04, 2022. Chest radiograph April 19, 2022. FINDINGS: Right PICC is in place. No pneumothorax or pleural effusion is present. Cardiomegaly is unchanged. Patient is rotated. Interstitial thickening is again noted. Linear bilateral opacities persist. There is no lobar consolida tion. IMPRESSION: 1. Cardiomegaly. Mild interstitial thickening. This may reflect pulmonary vascular congestion without overt pulmonary edema. 2. Linear bilateral opacities which favor atelectasis. An infectious process could appear similar although is considered less likely. ACT 112: Negative or not required by law. Electronically signed by: Cruz Berman M.D. 04/20/2022 5:03 PM
[2022-04-22] MEDS: ENOXAPARIN INJ 40 MG/0.4 ML SYR SQ SCH (15:24)
[2022-04-23] MEDS: ACETAMINOPHEN 325 MG TAB PO PRN ×3 (00:35→16:44)
[2022-04-23] MEDS: CLINDAMYCIN/D5W 900 MG/50 ML BAG IV SCH ×2 (04:18→11:31)
[2022-04-23] MEDS: PIPERACILLIN/TAZOBACTAM 4.5 GM in DEXTROSE 5% 100 ML IV SCH (05:25)
[2022-04-23 06:25] LABS: Hematocrit (blood only) 30.6 % (34.1-44.9); Mean Corpuscular Hemoglobin 30.7 pg (25.0-34.0); Mean Corpuscular Hgb Conc 32.7 g/dL (32.0-36.0); Mean Corpuscular Volume 93.9 fL (80.0-100.0); Mean Platelet Volume 9.8 fL (9.4-12.3); Platelet Count 228 K/uL (130-400); RDW Coefficient of Variation 14.3 % (11.5-14.5); RDW Standard Deviation 49.1 fL (36.4-46.3); Red Blood Count 3.26 M/uL (3.93-5.22); White Blood Count 6.74 K/ul (4.8-10.8)
[2022-04-23 06:56] LABS: BUN Creatinine Ratio 28.1 (10-20); Calcium 8.1 mg/dl (8.5-10.1); Creatinine Clr Calc Pharmacy 131.6 ml/min; Est GFR (Non-African American) 100.1 ml/min; Potassium 3.4 mmol/L (3.5-5.1)
[2022-04-23 07:00] LABS: Basophils # (auto) 0.05 K/uL (0-0.2); Basophils % (auto) 0.7 %; Eosinophils # (auto) 0.32 K/uL (0-0.50); Eosinophils % (auto) 4.7 %; Immature Granulocytes # (auto) 0.03 K/uL (0.00-0.02); Immature Granulocytes % (auto) 0.4 %; Lymphocytes # (auto) 2.26 K/uL (1.2-3.4); Lymphocytes % (auto) 33.5 %; Monocytes # (auto) 0.32 K/uL (0.24-0.82); Monocytes % (auto) 4.7 %; Neutrophils # (auto) 3.76 K/uL (1.4-6.5)
--- NOTE | 2022-04-23 07:35 | Surgery Progress Note ---
Date of Service April 23, 2022 Assessment & Plan (1) Wound of left buttock: Plan POD #2 status post incision, sharp debridement, washout of sacral stage IV wound Doing well, no pain Dressing changed at bedside, wet-to-dry with Kerlix Begin daily wet-to-dry dressing changes by nursing Will discuss with the wound nurse on Tuesday about possible wound VAC placement Admission and Anticipated Discharge Date Admission Date: April 19, 2022 Subjective POD #2 status post incision and sharp debridement of stage IV sacral decubitus ulcer. She is doing well. She denies any pain. Physical Exam Physical Exam: Dressing clean dry and intact I removed the packing. The wound looks clean. Minimal fibrinous exudate, no purulent drainage. The wound was repacked wet-to-dry with Kerlix. Results & Data ([facility]) Vital Signs (Past 12 Hours) Vital Signs Temp Pulse Resp BP Pulse Ox O2 Del Method O2 Flow Rate 04/23/22 07:09 36.3 C L 88 18 131/73 95 Nasal Cannula 2 04/22/22 20:00 Nasal Cannula 2 04/22/22 20:59 36.5 C 96 H 18 120/72 94 Nasal Cannula 2
[2022-04-23] MEDS: METOPROLOL TARTRATE 25 MG TAB PO SCH ×2 (07:42→20:57)
[2022-04-23] MEDS: FUROSEMIDE 40 MG TAB PO SCH (07:42)
[2022-04-23] MEDS: NYSTATIN POWDER 15GM BTL EXT SCH ×2 (07:43→20:58)
[2022-04-23] MEDS: ADVANCED PROBIOTIC 1250 MG CAPSULE PO SCH (07:43)
--- NOTE | 2022-04-23 08:10 | Infectious Disease Progress Nt ---
Date of Service April 23, 2022 Assessment & Plan (1) Pressure ulcers of skin of multiple topographic sites: (2) MSSA bacteremia: Plan: She was discharged on IV Cefazolin with plans for 6 week course through 05/07/22. (04/06-05/07) but changed to Daptomycin on discharge (I suspect d/t dosing ease but I dont see notation of this and patient unable to tell me) (3) Wound of left buttock: Plan 61 yo female with PMH chronic diastolic CHF, aortic stenosis, DM type II, liver cirrhosis, recent admission after fall found to have MSSA bacteremia on Daptomycin therapy who was readmitted to [facility] [place] on 04/20 for worsening sacral and LE wound. ID consulted for antibiotic management. Large left buttock ulcer with inflammatory stranding and deep tissue gas. w/ cellulitis with myositis. No drainable fluid collection. MRI of ankle ordered but stopped and not completed (notes state patient aborted study) . 04/20 Xray L ankle negative for gas or osteomyelitis. 04/20 Arterial dopplers of LE showed no significant stenosis. Patient was started on IV Daptomycin (continued) and Given Cefepime but changed to Zosyn. 04/21 Went to OR for sacral debridement. Findings "There was necrotic tissue, fibrinous exudate, purulent fluid extending all the way to the bone." OR cultures are growing E. Cloacae (S: Cefepime, Zosyn, Cipro) Recommend: F/U on finalization of OR cultures DC Clindamycin DC Zosyn Start Cefepime 2G IV TID and Flagyl 500mg po TID Cefepime will cover MSSA so while she is inpatient we can keep her on Cefepime/Flagyl to cover her wound infection and MSSA bacteremia ID will follow with you. I am available by page tomorrow and will return to service on Monday 04/23 Kimberly Gunn MD [facility], [facility] Admission and Anticipated Discharge Date Admission Date: April 19, 2022 Subjective This patient recommendation is based on a telemedicine consult request which was completed asynchronously through chart review and information provided by the primary physician. The patient was not seen or examined today. The evaluation is consultative in nature and all patient care and treatment decisions can either be accepted or rejected by the patient's primary hospital-based treating physician using their own independent medical judgment for their patient. Econsultation, telepresenter not available due to holiday. Results & Data ([facility]) Vital Signs (Past 12 Hours) Vital Signs Temp Pulse Resp BP Pulse Ox O2 Del Method O2 Flow Rate 04/23/22 07:20 Nasal Cannula 2 04/23/22 07:09 36.3 C L 88 18 131/73 95 Nasal Cannula 2 04/22/22 20:59 36.5 C 96 H 18 120/72 94 Nasal Cannula 2 Laboratory Results Short CBC 04/23/22 Range/Units 06:13 WBC 6.74 (4.8-10.8) K/ul Hgb 10.0 L (12.0-16.0) g/dl Hct 30.6 L (34.1-44.9) % Plt Count 228 (130-400) K/uL BMP 04/23/22 06:13 Sodium 138 Potassium 3.4 L Chloride 100 Carbon Dioxide 33 H BUN 16 Creatinine 0.57 L Glucose 209 H Calcium 8.1 L Cardiac Enzymes 04/22/22 Range/Units 08:03 Total Creatine Kinase 12 L (26-192) U/L Microbiology 04/21/22 Unknown Buttock,Left Gram Stain - Final 04/21/22 Unknown Buttock,Left Aerobic and Anaerobic Culture - Preliminary Enterobacter cloacae ANTIBIOTIC ORG 1 Cefepime S Ceftriaxone S Ciprofloxacin S Ertapenem S Gentamicin S Levofloxacin S Meropenem S Piperacillin/Tazobactam S Tobramycin S Trimethoprim/Sulfamethoxazole S 04/20/22 16:12 Blood Aerobic Blood Culture - Preliminary No growth in Aerobic bottle after 48 hours. 04/20/22 16:12 Blood Anaerobic Blood Culture - Preliminary No growth in Anaerobic bottle after 48 hours. 04/20/22 16:01 Blood Aerobic Blood Culture - Preliminary No growth in Aerobic bottle after 48 hours. 04/20/22 16:01 Blood Anaerobic Blood Culture - Preliminary No growth in Anaerobic bottle after 48 hours. 04/19/22 18:50 Urine,Straight Cath Urine Culture - Final Yeast not Rola albicans/dub 04/19/22 15:45 Ankle,Left Gram Stain - Final 04/19/22 15:45 Ankle,Left Wound Culture - Final Yeast not Rola albicans/dub 04/19/22 15:45 Buttock,Left Gram Stain - Final 04/19/22 15:45 Buttock,Left Wound Culture - Final Low counts mixed probable gastrointestinal microbiota. No further identifications or sensitivities to follow.
[2022-04-23] MEDS: DAPTOmycin 675 MG in SYRINGE 0 ML IV SCH (08:56)
[2022-04-23] MEDS: LANTUS PER UNIT CHARGE SQ SCH ×2 (08:56→20:55)
[2022-04-23] MEDS: INSULIN ASPART PER UNIT SC SCH ×4 (08:56→20:56)
[2022-04-23] MEDS ORDERED: SPIRONOLACTONE 25 MG TAB PO SCH (09:00)
--- NOTE | 2022-04-23 13:25 | Hospitalist Progress Note ---
Date of Service April 23, 2022 Assessment & Plan (1) Pressure ulcers of skin of multiple topographic sites: Plan: Multiple wounds scattered over body - please refer to wound care nurse documentation for full details and photos 04/20/2022 - 5cm x 5cm wound left buttock - large amount of purulent drainage expressed when rolling patient in bed. IV cefepime added to IV daptomycin patient was previously on for MSSA bacteremia. CT obtained that did not show evidence of deep abscess. General surgery consulted for wound debridement; patient underwent debridement in the OR on 04/21. 3cm x 3cm wound left lateral ankle over the malleolus - sloughing tissue pre sent. MRI ordered to evaluate for possible osteomyelitis however patient declined study. Ortho consulted, bedside debridement preformed 04/20. Vascular consult placed by ortho. BLE arterial duplex demonstrates mild diffuse disease BLE. No indications for for vascular surgery intervention. Intra-Op wound culture shows Enterobacter cloacae Plan: -Antibiotics changed to IV cefepime to cover for MSSA and Enterobacter cloacae in wound culture. Flagyl for anaerobic coverage. She will need IV cefepime through 05/17/2022. -Repeat blood culture is negative so far. -Dressing change as per surgery and wound care. Patient to have wound VAC placed on Tuesday. Seen by wound care for heel pressure ulcer; waffle boots ordered for offloading. Urinary retention Lozano in place Will try trial of void after patient is more mobile. Urology were consulted. Hypoxia Intermittent hypoxia noted, patient currently requiring 1-2L Continue on Lasix and spironolactone; spironolactone increased to 100 mg once daily. (2) MSSA bacteremia: Plan: Diagnosed during previous admission, currently on IV cefepime. Patient declined JILLIAN to evaluate for endocarditis during previous admission Will complete 6 weeks of therapy on 05/17 We will obtain weekly CBC, CMP and ESR Follow-up with ID Dr. Ellis (3) Generalized weakness: (4) Ambulatory dysfunction: Plan: Patient presenting from home with reports of generalized weakness, ambulatory dysfunction, frequent falls. Recently admitted to [facility] 04/04 through 04/14 after not receiving care for many years and was found to have acute diastolic CHF, aortic stenosis, multiple lower extremity wounds, imaging findings suggestive of cirrhosis, and MSSA bacteremia. PT/OT, case management to assist with placement (5) Type 2 diabetes mellitus: Plan: Hgb A1c 10.5 04/04/2022 Newly diagnosed during previous admission, discharged on metformin Utilize Lantus and NovoLog per protocol while hospitalized (6) Aortic stenosis: (7) Chronic diastolic CHF (congestive heart failure): Plan: Appears euvolemic, continue furosemide and spironolactone Patient to establish with [facility] cardiology (8) Cirrhosis: Plan: Appears compensated Imaging during previous admission suggestive of cirrhosis, no prior history of Patient to establish with [facility] (9) DVT prophylaxis: Plan: SQ Lovenox Full code Dispositionpatient was discharged home last admission despite being suggested to go to rehab. Patient would need extensive wound care and IV antibiotic. Case management on board; will need final duration and route of antibiotic from ID before discharge. Wound VAC to be placed on Tuesday; possible discharge on Tuesday/Tuesday to rehab. Admission and Anticipated Discharge Date Admission Date: April 19, 2022 Subjective Patient seen and examined at bedside. She is lying on the bed comfortably; not in any distress. Dressing change done by surgery at bedside today. Review of Systems Review of Systems: All systems reviewed & are unremarkable except as noted in Subjective Physical Exam Physical Exam: Constitutional: Awake, alert orient x3. Not in any distress. Morbidly obese. Respiratory: normal respiratory effort, lungs clear to auscultation, no wheeze, rales, rhonchi. Normal insp/exp effort, no accessory muscle use Cardiovascular: RRR, no murmur, no edema Vessels: no JVD or carotid bruit Chest: normal inspection of chest Abdomen: normal bowel sounds, soft, nontender, no hepatosplenomegaly Musculoskeletal: no cyanosis or clubbing, extremities motor strength 5/5 Skin: no rashes, warm and dry normal turgor Neurologic: PERRL, EOMI, accommodation nl, no face palsy, no dysarthria CN's II- XI intact bilaterally and moves all extremities Psychiatric: A+Ox3, euthymic affect Lymphatic: no cervical or axillary lymphadenopathy : deferred Results & Data Results & Data ([facility]) Vital Signs (Past 12 Hours) Vital Signs Temp Pulse Resp BP Pulse Ox O2 Del Method O2 Flow Rate 04/23/22 07:20 Nasal Cannula 2 04/23/22 07:09 36.3 C L 88 18 131/73 95 Nasal Cannula 2 Laboratory Results Laboratory Results WBC 6.74 K/ul (4.8-10.8) 04/23/22 06:13 RBC 3.26 M/uL (3.93-5.22) L 04/23/22 06:13 Hgb 10.0 g/dl (12.0-16.0) L 04/23/22 06:13 Hct 30.6 % (34.1-44.9) L 04/23/22 06:13 MCV 93.9 fL (80.0-100.0) 04/23/22 06:13 MCH 30.7 pg (25.0-34.0) 04/23/22 06:13 MCHC 32.7 g/dL (32.0-36.0) 04/23/22 06:13 RDW Std Deviation 49.1 fL (36.4-46.3) H 04/23/22 06:13 RDW Coeff of Chintan 14.3 % (11.5-14.5) 04/23/22 06:13 Plt Count 228 K/uL (130-400) 04/23/22 06:13 MPV 9.8 fL (9.4-12.3) 04/23/22 06:13 Immature Gran % (Auto) 0.4 % 04/23/22 06:13 Neut % (Auto) 56.0 % 04/23/22 06:13 Lymph % (Auto) 33.5 % 04/23/22 06:13 [place] % (Auto) 4.7 % 04/23/22 06:13 Eos % (Auto) 4.7 % 04/23/22 06:13 Baso % (Auto) 0.7 % 04/23/22 06:13 Neut # (Auto) 3.76 K/uL (1.4-6.5) 04/23/22 06:13 Lymph # (Auto) 2.26 K/uL (1.2-3.4) 04/23/22 06:13 [place] # (Auto) 0.32 K/uL (0.24-0.82) 04/23/22 06:13 Eos # (Auto) 0.32 K/uL (0-0.50) 04/23/22 06:13 Baso # (Auto) 0.05 K/uL (0-0.2) 04/23/22 06:13 Immature Gran # (Auto) 0.03 K/uL (0.00-0.02) H 04/23/22 06:13 Sodium 138 mmol/L (136-145) 04/23/22 06:13 Potassium 3.4 mmol/L (3.5-5.1) L 04/23/22 06:13 Chloride 100 mmol/L (98-107) 04/23/22 06:13 Carbon Dioxide 33 mmol/L (21-32) H 04/23/22 06:13 Anion Gap 5 (3-11) 04/23/22 06:13 BUN 16 mg/dl (6-23) 04/23/22 06:13 Creatinine 0.57 mg/dl (0.6-1.2) L 04/23/22 06:13 Est Cr Clr Drug Dosing 131.6 ml/min 04/23/22 06:13 Est GFR ( Amer) 116.0 ml/min 04/23/22 06:13 Est GFR (Non-Af Amer) 100.1 ml/min 04/23/22 06:13 BUN/Creatinine Ratio 28.1 (10-20) H 04/23/22 06:13 Glucose 209 mg/dl (70-99(Fasting)) H 04/23/22 06:13 POC Glucose 223 mg/dl (70-99) H 04/23/22 12:22 Lactate 0.8 mmol/L (0.4-2.0) 04/20/22 16:02 Calcium 8.1 mg/dl (8.5-10.1) L 04/23/22 06:13 Magnesium 2.0 mg/dl (1.7-2.4) 04/21/22 08:21 Total Bilirubin 0.6 mg/dl (0.2-1.0) 04/19/22 11:33 AST 20 U/L (13-39) 04/19/22 11:33 ALT 9 U/L (7-52) 04/19/22 11:33 Alkaline Phosphatase 131 U/L (34-104) H 04/19/22 11:33 Total Creatine Kinase 12 U/L (26-192) L 04/22/22 08:03 Troponin I High Sens 13.5 pg/ml (0-14) D 04/19/22 11:33 B-Natriuretic Peptide 585 pg/ml (0-100) H 04/19/22 12:04 Total Protein 8.0 gm/dl (6.0-8.3) 04/19/22 11:33 Albumin 2.9 gm/dl (3.4-5.0) L 04/19/22 11:33 Globulin 5.1 gm/dl (2.5-4.0) H 04/19/22 11:33 Albumin/Globulin Ratio 0.6 (0.9-2) L 04/19/22 11:33 Urine Color Yellow 04/19/22 18:50 Urine Appearance Clear (Clear) 04/19/22 18:50 Urine pH 5.5 (4.5-7.5) 04/19/22 18:50 Ur Specific [place] 1.014 (1.000-1.030) 04/19/22 18:50 Urine Protein Trace (Negative) H 04/19/22 18:50 Urine Glucose (UA) Negative (Negative) 04/19/22 18:50 Urine Ketones Negative (Negative) 04/19/22 18:50 Urine Blood 1+ (Negative) H 04/19/22 18:50 Urine Nitrite Negative (Negative) 04/19/22 18:50 Urine Bilirubin Negative (Negative) 04/19/22 18:50 Urine Urobilinogen Negative (Negative) 04/19/22 18:50 Ur Leukocyte Esterase Negative (Negative) 04/19/22 18:50 Urine WBC (Auto) 1-5 /hpf (0-5) 04/19/22 18:50 Urine RBC (Auto) 0-4 /hpf (0-4) 04/19/22 18:50 U Hyaline Cast (Auto) 5-10 /lpf (0-5) H 04/19/22 18:50 U Epithel Cells (Auto) 10-20 /lpf (0-5) H 04/19/22 18:50 Urine Bacteria (Auto) Negative (Negative) 04/19/22 18:50 Urine Yeast Budding (None Prsent) A 04/19/22 18:50 SARS-CoV-2, RNA, NAAT NEGATIVE (NEGATIVE) 04/19/22 13:[address] 04/20/22 09:53 CT pelvis w/IV con only HISTORY: 61 years-old Female left buttock wound, eval for abscess patient presents with wound of the left buttock COMPARISON: 04/04/2022 TECHNIQUE: Axial CT images of the pelvis were obtained following the intravenous administration of 94 mL Optiray 350. A dose lowering technique was used consistent with the principals of DMITRIY. FINDINGS: Marginal nodularity of the liver is redemonstrated suspicious for cirrhosis. No hepatic mass identified. Nonspecific gallbladder wall thickening. Atherosclerosis of the aorta without aneurysm. Calcified pelvic lymph nodes are redemonstrated. 4 mm nonobstructing calculus of the inferior pole left kidney. Decompressed urinary bladder with Lozano catheter in place. Postmenopausal endometrium appears to be mildly thickened. No bowel obstruction or bowel wall thickening. Moderate colonic fecal retention. Normal appendix. Small fat filled periumbilical hernia, diastases of 2.7 cm. There is a large left buttock soft tissue wound measuring approximately 3.8 cm transversely. There is a large amount of air and/or packing material extending into the wound into the proximal left thigh. This is most pronounced medially however air and inflammatory stranding tracks into the hamstring and abductor musculature. No drainable fluid collection. Degenerative changes of the spine, pelvis and hips. No acute fracture. No destructive bone lesion. IMPRESSION: 1. Large left buttock ulcer with inflammatory stranding and deep tissue gas. Findings may be secondary to recent intervention, however should be correlated clinically to exclude fasciitis. Additionally, there is evidence of associated cellulitis with myositis. No drainable fluid collection. 2. No bowel obstruction or bowel wall thickening. 3. Left nephrolithiasis. 4. Nonspecific gallbladder wall thickening. Findings could be correlated with ultrasound. 5. Additional findings as above. ACT 112: Negative or not required by law. The above report was generated using voice recognition software. It may contain grammatical, syntax or spelling errors. Electronically signed by: Michael Rodriguez M.D. 04/20/2022 3:01 PM Ankle MRI 04/20/22 09:58 MR ankle LT wo con CLINICAL HISTORY: 61 years-old Female with left lateral ankle wound, eval for osteo. Chronic pain of the left ankle COMPARISON: Left ankle radiographs of same day TECHNIQUE: Manager Care Management localizer MR images of the left ankle were performed without contrast. No additional images were obtained. FINDINGS/IMPRESSION: Limited foreclosure field inspector images were obtained. The patient decided to abort the study. No diagnostic images were obtained. The patient will not be charged for this exam. ACT 112: Negative or not required by law. The above report was generated using voice recognition software. It may contain grammatical, syntax or spelling errors. Electronically signed by: Michael Rodriguez M.D. 04/20/2022 1:52 PM Ankle X-Ray 04/20/22 10:20 LEFT ANKLE 3 VIEWS CLINICAL HISTORY: Wound. FINDINGS: 3 views of the left ankle are correlated with CT scan of the left tibia and fibula dated 04/04/2022. The skeletal structures are osteopenic. No fracture is seen. There is no bony erosion or periostitis. The ankle mortise is intact. No joint effusion is identified. There is a large plantar heel spur. Degenerative spurring is seen along the dorsal aspect of the tarsal bones. Soft tissue edema is present throughout the left lower extremity. There is advanced atherosclerotic calcification of the regional arteries. Phleboliths are noted in the calf. No soft tissue gas is seen. IMPRESSION: 1. Soft tissue swelling with no acute bony abnormality identified. 2. Osteopenia with degenerative change and a large heel spur as above. Electronically signed by: Israel Johnson M.D. 04/20/2022 12:24 PM Duplex Scan Lower Extremity Artery 04/20/22 14:59 US arterial duplex LE BI HISTORY: 61 years-old Female non healing wounds chronic nonhealing wounds of the lower extremities COMPARISON: None TECHNIQUE: Multiple real-time sonographic images of the lower extremity arterial structures were obtained assessing grayscale appearance, color and spectral flow FINDINGS: RIGHT: Triphasic waveforms within the common femoral, superficial femoral and anterior tibial arteries with monophasic waveforms extending from the popliteal artery into the lower leg. No arterial occlusion or significantly elevated peak systolic velocities within the right lower extremity. Atherosclerotic plaque is noted. LEFT: Triphasic waveforms within the common femoral, superficial femoral and anterior tibial arteries with monophasic waveforms extending from the popliteal artery into the lower leg. No arterial occlusion or significantly elevated peak systolic velocities within the left lower extremity. Atherosclerotic plaque is noted. Distal portions of the anterior tibial, peroneal, posterior tibial and dorsalis pedis arteries aren't able to be visualized secondary to overlying bandages. ABIs were also unable to be obtained secondary to these same reasons. IMPRESSION: 1. No arterial occlusion or significantly elevated peak systolic velocities identified to suggest high-grade stenosis. 2. Limited exam as above. 3. Monophasic waveforms of the lower legs. ACT 112: Negative or not required by law. The above report was generated using voice recognition software. It may contain grammatical, syntax or spelling errors. Electronically signed by: Michael Rodriguez M.D. 04/21/2022 9:12 AM Chest X-Ray 04/20/22 15:38 XR chest 1V portable CLINICAL HISTORY: hypoxia COMPARISON STUDY: Chest CT April 04, 2022. Chest radiograph April 19, 2022. FINDINGS: Right PICC is in place. No pneumothorax or pleural effusion is present. Cardiomegaly is unchanged. Patient is rotated. Interstitial thickening is again noted. Linear bilateral opacities persist. There is no lobar consolidation. IMPRESSION: 1. Cardiomegaly. Mild interstitial thickening. This may reflect pulmonary vascular congestion without overt pulmonary edema. 2. Linear bilateral opacities which favor atelectasis. An infectious process could appear similar although is considered less likely. ACT 112: Negative or not required by law. Electronically signed by: Cruz Berman M.D. 04/20/2022 5:03 PM
[2022-04-23] MEDS: metroNIDAZOLE 500 MG TAB PO SCH ×2 (14:37→20:57)
[2022-04-23] MEDS: CEFEPIME 2,000 MG in SYRINGE 0 ML IV SCH ×2 (14:37→20:58)
[2022-04-23] MEDS: ENOXAPARIN INJ 40 MG/0.4 ML SYR SQ SCH (16:12)
[2022-04-24] MEDS: ACETAMINOPHEN 325 MG TAB PO PRN ×3 (03:08→17:35)
[2022-04-24] MEDS: CEFEPIME 2,000 MG in SYRINGE 0 ML IV SCH ×3 (05:14→21:50)
[2022-04-24 05:34] LABS: Hematocrit (blood only) 32.2 % (34.1-44.9); Hemoglobin 10.7 g/dl (12.0-16.0); Mean Corpuscular Hemoglobin 30.5 pg (25.0-34.0); Mean Corpuscular Hgb Conc 33.2 g/dL (32.0-36.0); Mean Corpuscular Volume 91.7 fL (80.0-100.0); Mean Platelet Volume 9.8 fL (9.4-12.3); Platelet Count 261 K/uL (130-400); RDW Coefficient of Variation 14.5 % (11.5-14.5); RDW Standard Deviation 48.9 fL (36.4-46.3); Red Blood Count 3.51 M/uL (3.93-5.22); White Blood Count 6.52 K/ul (4.8-10.8)
[2022-04-24 05:58] LABS: Albumin Globulin Ratio 0.6 (0.9-2); Albumin Level 2.8 gm/dl (3.4-5.0); BUN Creatinine Ratio 34.7 (10-20); Bilirubin,Total 0.4 mg/dl (0.2-1.0); Calcium 8.4 mg/dl (8.5-10.1); Creatinine Clr Calc Pharmacy 153.1 ml/min; Est GFR (African American) 121.9 ml/min; Est GFR (Non-African American) 105.2 ml/min; Globulin 4.5 gm/dl (2.5-4.0); Potassium 3.2 mmol/L (3.5-5.1); Total Protein 7.3 gm/dl (6.0-8.3)
[2022-04-24 06:42] LABS: Basophils # (auto) 0.05 K/uL (0-0.2); Basophils % (auto) 0.8 %; Eosinophils # (auto) 0.31 K/uL (0-0.50); Eosinophils % (auto) 4.8 %; Immature Granulocytes # (auto) 0.03 K/uL (0.00-0.02); Immature Granulocytes % (auto) 0.5 %; Lymphocytes # (auto) 2.22 K/uL (1.2-3.4); Monocytes % (auto) 6.1 %; Neutrophils # (auto) 3.51 K/uL (1.4-6.5); Neutrophils % (auto) 53.8 %
[2022-04-24] MEDS: METOPROLOL TARTRATE 25 MG TAB PO SCH ×2 (07:10→21:40)
[2022-04-24] MEDS: ADVANCED PROBIOTIC 1250 MG CAPSULE PO SCH (07:10)
[2022-04-24] MEDS: metroNIDAZOLE 500 MG TAB PO SCH ×3 (07:11→21:40)
[2022-04-24] MEDS: FUROSEMIDE 40 MG TAB PO SCH (07:11)
[2022-04-24] MEDS: SPIRONOLACTONE 100 MG TAB PO SCH (07:11)
[2022-04-24] MEDS: NYSTATIN POWDER 15GM BTL EXT SCH ×2 (07:12→21:40)
[2022-04-24] MEDS: INSULIN ASPART PER UNIT SC SCH ×4 (09:47→21:38)
[2022-04-24] MEDS: LANTUS PER UNIT CHARGE SQ SCH ×2 (09:47→21:38)
[2022-04-24] MEDS: LOPERAMIDE HCL 2 MG CAP PO PRN (09:57)
--- NOTE | 2022-04-24 11:19 | Surgery Progress Note ---
Date of Service April 24, 2022 Assessment & Plan (1) Pressure ulcers of skin of multiple topographic sites: Plan: continue dressings needing multiple changes due to soilage Present on Admission?: Yes Admission and Anticipated Discharge Date Admission Date: April 19, 2022 Subjective feels well no complaints Review of Systems Constitutional: no fever and no chills Respiratory: no cough and no dyspnea Cardiovascular: no chest pain Gastrointestinal: + diarrhea/loose stools; no abdominal pain Genitourinary: + problem reported (catheter in place) Physical Exam Constitutional: WD/WN, vitals as above Respiratory: normal respiratory effort, lungs clear to auscultation Cardiovascular: RRR, no murmur, no edema Gastrointestinal (Abdomen): normal bowel sounds, soft, nontender, no hepatosplenomegaly Skin: no rashes, warm and dry dressing changed this AM, dry Results & Data ([facility]) Vital Signs (Past 12 Hours) Vital Signs Temp Pulse Resp BP Pulse Ox O2 Del Method O2 Flow Rate 04/24/22 10:04 Nasal Cannula 2 04/24/22 09:11 76 16 104/65 96 Nasal Cannula 2 04/24/22 08:06 76 18 104/65 92 Room Air 04/24/22 06:59 36.3 C L 79 16 102/54 L 91 Room Air
--- NOTE | 2022-04-24 14:39 | Hospitalist Progress Note ---
Date of Service April 24, 2022 Assessment & Plan (1) Pressure ulcers of skin of multiple topographic sites: Plan: Multiple wounds scattered over body - please refer to wound care nurse documentation for full details and photos 04/20/2022 - 5cm x 5cm wound left buttock - large amount of purulent drainage expressed when rolling patient in bed. IV cefepime added to IV daptomycin patient was previously on for MSSA bacteremia. CT obtained that did not show evidence of deep abscess. General surgery consulted for wound debridement; patient underwent debridement in the OR on 04/21. 3cm x 3cm wound left lateral ankle over the malleolus - sloughing tissue pre sent. MRI ordered to evaluate for possible osteomyelitis however patient declined study. Ortho consulted, bedside debridement preformed 04/20. Vascular consult placed by ortho. BLE arterial duplex demonstrates mild diffuse disease BLE. No indications for for vascular surgery intervention. Intra-Op wound culture shows Enterobacter cloacae Plan: -Antibiotics changed to IV cefepime to cover for MSSA and Enterobacter cloacae in wound culture. Flagyl for anaerobic coverage. She will need IV cefepime through 05/17/2022. -Repeat blood culture is negative so far. -Dressing change as per surgery and wound care. Patient to have wound VAC placed on Tuesday. Seen by wound care for heel pressure ulcer; waffle boots ordered for offloading. Urinary retention Lozano in place Trial of void today; bladder scan every 8. Hypoxia Intermittent hypoxia noted, patient currently requiring 1-2L Continue on Lasix and spironolactone; spironolactone increased to 100 mg once daily. (2) MSSA bacteremia: Plan: Diagnosed during previous admission, currently on IV cefepime. Patient declined JILLIAN to evaluate for endocarditis during previous admission Will complete 6 weeks of therapy on 05/17 We will obtain weekly CBC, CMP and ESR Follow-up with ID Dr. Ellis (3) Generalized weakness: (4) Ambulatory dysfunction: Plan: Patient presenting from home with reports of generalized weakness, ambulatory dysfunction, frequent falls. Recently admitted to [facility] 04/04 through 04/14 after not receiving care for many years and was found to have acute diastolic CHF, aortic stenosis, multiple lower extremity wounds, imaging findings suggestive of cirrhosis, and MSSA bacteremia. PT/OT, case management to assist with placement (5) Type 2 diabetes mellitus: Plan: Hgb A1c 10.5 04/04/2022 Newly diagnosed during previous admission, discharged on metformin Utilize Lantus and NovoLog per protocol while hospitalized (6) Aortic stenosis: (7) Chronic diastolic CHF (congestive heart failure): Plan: Appears euvolemic, continue furosemide and spironolactone Patient to establish with [facility] cardiology (8) Cirrhosis: Plan: Appears compensated Imaging during previous admission suggestive of cirrhosis, no prior history of [facility] (9) DVT prophylaxis: Plan: SQ Lovenox Full code Dispositionpatient was discharged home last admission despite being suggested to go to rehab. Patient would need extensive wound care and IV antibiotic. Case management on board; will need final duration and route of antibiotic from ID before discharge. Wound VAC to be placed on Tuesday; possible discharge on Tuesday/Tuesday to rehab. Admission and Anticipated Discharge Date Admission Date: April 19, 2022 Subjective Patient seen and examined at bedside. She is comfortable; not in any distress. Complains of loose bowel movement overnight. C. difficile negative Review of Systems Review of Systems: All systems reviewed & are unremarkable except as noted in Subjective Physical Exam Physical Exam: Constitutional: Awake, alert orient x3. Not in any distress. Morbidly obese. Respiratory: normal respiratory effort, lungs clear to auscultation, no wheeze, rales, rhonchi. Normal insp/exp effort, no accessory muscle use Cardiovascular: RRR, no murmur, no edema Vessels: no JVD or carotid bruit Chest: normal inspection of chest Abdomen: normal bowel sounds, soft, nontender, no hepatosplenomegaly Musculoskeletal: no cyanosis or clubbing, extremities motor strength 5/5 Skin: no rashes, warm and dry normal turgor Neurologic: PERRL, EOMI, accommodation nl, no face palsy, no dysarthria CN's II- XI intact bilaterally and moves all extremities Psychiatric: A+Ox3, euthymic affect Lymphatic: no cervical or axillary lymphadenopathy : deferred Results & Data Results & Data ([facility]) Vital Signs (Past 12 Hours) Vital Signs Temp Pulse Resp BP Pulse Ox O2 Del Method O2 Flow Rate 04/24/22 10:04 Nasal Cannula 2 04/24/22 09:11 76 16 104/65 96 Nasal Cannula 2 04/24/22 08:06 76 18 104/65 92 Room Air 04/24/22 06:59 36.3 C L 79 16 102/54 L 91 Room Air Laboratory Results Laboratory Results WBC 6.52 K/ul (4.8-10.8) 04/24/22 05:09 RBC 3.51 M/uL (3.93-5.22) L 04/24/22 05:09 Hgb 10.7 g/dl (12.0-16.0) L 04/24/22 05:09 Hct 32.2 % (34.1-44.9) L 04/24/22 05:09 MCV 91.7 fL (80.0-100.0) 04/24/22 05:09 MCH 30.5 pg (25.0-34.0) 04/24/22 05:09 MCHC 33.2 g/dL (32.0-36.0) 04/24/22 05:09 RDW Std Deviation 48.9 fL (36.4-46.3) H 04/24/22 05:09 RDW Coeff of Chintan 14.5 % (11.5-14.5) 04/24/22 05:09 Plt Count 261 K/uL (130-400) 04/24/22 05:09 MPV 9.8 fL (9.4-12.3) 04/24/22 05:09 Immature Gran % (Auto) 0.5 % 04/24/22 05:09 Neut % (Auto) 53.8 % 04/24/22 05:09 Lymph % (Auto) 34.0 % 04/24/22 05:09 Brewster % (Auto) 6.1 % 04/24/22 05:09 Eos % (Auto) 4.8 % 04/24/22 05:09 Baso % (Auto) 0.8 % 04/24/22 05:09 Neut # (Auto) 3.51 K/uL (1.4-6.5) 04/24/22 05:09 Lymph # (Auto) 2.22 K/uL (1.2-3.4) 04/24/22 05:09 Brewster # (Auto) 0.40 K/uL (0.24-0.82) 04/24/22 05:09 Eos # (Auto) 0.31 K/uL (0-0.50) 04/24/22 05:09 Baso # (Auto) 0.05 K/uL (0-0.2) 04/24/22 05:09 Immature Gran # (Auto) 0.03 K/uL (0.00-0.02) H 04/24/22 05:09 Sodium 140 mmol/L (136-145) 04/24/22 05:09 Potassium 3.2 mmol/L (3.5-5.1) L 04/24/22 05:09 Chloride 101 mmol/L (98-107) 04/24/22 05:09 Carbon Dioxide 33 mmol/L (21-32) H 04/24/22 05:09 Anion Gap 6 (3-11) 04/24/22 05:09 BUN 17 mg/dl (6-23) 04/24/22 05:09 Creatinine 0.49 mg/dl (0.6-1.2) L 04/24/22 05:09 Est Cr Clr Drug Dosing 153.1 ml/min 04/24/22 05:09 Est GFR ( Amer) 121.9 ml/min 04/24/22 05:09 Est GFR (Non-Af Amer) 105.2 ml/min 04/24/22 05:09 BUN/Creatinine Ratio 34.7 (10-20) H 04/24/22 05:09 Glucose 137 mg/dl (70-99(Fasting)) H 04/24/22 05:09 POC Glucose 201 mg/dl (70-99) H 04/24/22 12:22 Lactate 0.8 mmol/L (0.4-2.0) 04/20/22 16:02 Calcium 8.4 mg/dl (8.5-10.1) L 04/24/22 05:09 Magnesium 2.0 mg/dl (1.7-2.4) 04/21/22 08:21 Total Bilirubin 0.4 mg/dl (0.2-1.0) 04/24/22 05:09 AST 23 U/L (13-39) 04/24/22 05:09 ALT 12 U/L (7-52) 04/24/22 05:09 Alkaline Phosphatase 123 U/L (34-104) H 04/24/22 05:09 Total Creatine Kinase 12 U/L (26-192) L 04/22/22 08:03 Troponin I High Sens 13.5 pg/ml (0-14) D 04/19/22 11:33 B-Natriuretic Peptide 585 pg/ml (0-100) H 04/19/22 12:04 Total Protein 7.3 gm/dl (6.0-8.3) 04/24/22 05:09 Albumin 2.8 gm/dl (3.4-5.0) L 04/24/22 05:09 Globulin 4.5 gm/dl (2.5-4.0) H 04/24/22 05:09 Albumin/Globulin Ratio 0.6 (0.9-2) L 04/24/22 05:09 Urine Color Yellow 04/19/22 18:50 Urine Appearance Clear (Clear) 04/19/22 18:50 Urine pH 5.5 (4.5-7.5) 04/19/22 18:50 Ur Specific [place] 1.014 (1.000-1.030) 04/19/22 18:50 Urine Protein Trace (Negative) H 04/19/22 18:50 Urine Glucose (UA) Negative (Negative) 04/19/22 18:50 Urine Ketones Negative (Negative) 04/19/22 18:50 Urine Blood 1+ (Negative) H 04/19/22 18:50 Urine Nitrite Negative (Negative) 04/19/22 18:50 Urine Bilirubin Negative (Negative) 04/19/22 18:50 Urine Urobilinogen Negative (Negative) 04/19/22 18:50 Ur Leukocyte Esterase Negative (Negative) 04/19/22 18:50 Urine WBC (Auto) 1-5 /hpf (0-5) 04/19/22 18:50 Urine RBC (Auto) 0-4 /hpf (0-4) 04/19/22 18:50 U Hyaline Cast (Auto) 5-10 /lpf (0-5) H 04/19/22 18:50 U Epithel Cells (Auto) 10-20 /lpf (0-5) H 04/19/22 18:50 Urine Bacteria (Auto) Negative (Negative) 04/19/22 18:50 Urine Yeast Budding (None Prsent) A 04/19/22 18:50 Stl C. diff Tox B Gene Negative Cdiff Gene (Neg) 04/23/22 19:30 SARS-CoV-2, RNA, NAAT NEGATIVE (NEGATIVE) 04/19/22 13:[address] 04/20/22 09:53 CT pelvis w/IV con only HISTORY: 61 years-old Female left buttock wound, eval for abscess patient presents with wound of the left buttock COMPARISON: 04/04/2022 TECHNIQUE: Axial CT images of the pelvis were obtained following the intravenous administration of 94 mL Optiray 350. A dose lowering technique was used consistent with the principals of DMITRIY. FINDINGS: Marginal nodularity of the liver is redemonstrated suspicious for cirrhosis. No hepatic mass identified. Nonspecific gallbladder wall thickening. Atherosclerosis of the aorta without aneurysm. Calcified pelvic lymph nodes are redemonstrated. 4 mm nonobstructing calculus of the inferior pole left kidney. Decompressed urinary bladder with Lozano catheter in place. Postmenopausal endometrium appears to be mildly thickened. No bowel obstruction or bowel wall thickening. Moderate colonic fecal retention. Normal appendix. Small fat filled periumbilical hernia, diastases of 2.7 cm. There is a large left buttock soft tissue wound measuring approximately 3.8 cm transversely. There is a large amount of air and/or packing material extending into the wound into the proximal left thigh. This is most pronounced medially however air and inflammatory stranding tracks into the hamstring and abductor musculature. No drainable fluid collection. Degenerative changes of the spine, pelvis and hips. No acute fracture. No destructive bone lesion. IMPRESSION: 1. Large left buttock ulcer with inflammatory stranding and deep tissue gas. Findings may be secondary to recent intervention, however should be correlated clinically to exclude fasciitis. Additionally, there is evidence of associated cellulitis with myositis. No drainable fluid collection. 2. No bowel obstruction or bowel wall thickening. 3. Left nephrolithiasis. 4. Nonspecific gallbladder wall thickening. Findings could be correlated with ultrasound. 5. Additional findings as above. ACT 112: Negative or not required by law. The above report was generated using voice recognition software. It may contain grammatical, syntax or spelling errors. Electronically signed by: Michael Rodriguez M.D. 04/20/2022 3:01 PM Ankle MRI 04/20/22 09:58 MR ankle LT wo con CLINICAL HISTORY: 61 years-old Female with left lateral ankle wound, eval for osteo. Chronic pain of the left ankle COMPARISON: Left ankle radiographs of same day TECHNIQUE: Edge Sawyer localizer MR images of the left ankle were performed without contrast. No additional images were obtained. FINDINGS/IMPRESSION: Limited core worker images were obtained. The patient decided to abort the study. No diagnostic images were obtained. The patient will not be charged for this exam. ACT 112: Negative or not required by law. The above report was generated using voice recognition software. It may contain grammatical, syntax or spelling errors. Electronically signed by: Michael Rodriguez M.D. 04/20/2022 1:52 PM Ankle X-Ray 04/20/22 10:20 LEFT ANKLE 3 VIEWS CLINICAL HISTORY: Wound. FINDINGS: 3 views of the left ankle are correlated with CT scan of the left tibia and fibula dated 04/04/2022. The skeletal structures are osteopenic. No fracture is seen. There is no bony erosion or periostitis. The ankle mortise is intact. No joint effusion is identified. There is a large plantar heel spur. Degenerative spurring is seen along the dorsal aspect of the tarsal bones. Soft tissue edema is present throughout the left lower extremity. There is advanced atherosclerotic calcification of the regional arteries. Phleboliths are noted in the calf. No soft tissue gas is seen. IMPRESSION: 1. Soft tissue swelling with no acute bony abnormality identified. 2. Osteopenia with degenerative change and a large heel spur as above. Electronically signed by: Israel Johnson M.D. 04/20/2022 12:24 PM Duplex Scan Lower Extremity Artery 04/20/22 14:59 US arterial duplex LE BI HISTORY: 61 years-old Female non healing wounds chronic nonhealing wounds of the lower extremities COMPARISON: None TECHNIQUE: Multiple real-time sonographic images of the lower extremity arterial structures were obtained assessing grayscale appearance, color and spectral flow FINDINGS: RIGHT: Triphasic waveforms within the common femoral, superficial femoral and anterior tibial arteries with monophasic waveforms extending from the popliteal artery into the lower leg. No arterial occlusion or significantly elevated peak systolic velocities within the right lower extremity. Atherosclerotic plaque is noted. LEFT: Triphasic waveforms within the common femoral, superficial femoral and anterior tibial arteries with monophasic waveforms extending from the popliteal artery into the lower leg. No arterial occlusion or significantly elevated peak systolic velocities within the left lower extremity. Atherosclerotic plaque is noted. Distal portions of the anterior tibial, peroneal, posterior tibial and dorsalis pedis arteries aren't able to be visualized secondary to overlying bandages. ABIs were also unable to be obtained secondary to these same reasons. IMPRESSION: 1. No arterial occlusion or significantly elevated peak systolic velocities identified to suggest high-grade stenosis. 2. Limited exam as above. 3. Monophasic waveforms of the lower legs. ACT 112: Negative or not required by law. The above report was generated using voice recognition software. It may contain grammatical, syntax or spelling errors. Electronically signed by: Michael Rodriguez M.D. 04/21/2022 9:12 AM Chest X-Ray 04/20/22 15:38 XR chest 1V portable CLINICAL HISTORY: hypoxia COMPARISON STUDY: Chest CT April 04, 2022. Chest radiograph April 19, 2022. FINDINGS: Right PICC is in place. No pneumothorax or pleural effusion is present. Cardiomegaly is unchanged. Patient is rotated. Interstitial thickening is again noted. Linear bilateral opacities persist. There is no lobar consolidation. IMPRESSION: 1. Cardiomegaly. Mild interstitial thickening. This may reflect pulmonary vascular congestion without overt pulmonary edema. 2. Linear bilateral opacities which favor atelectasis. An infectious process could appear similar although is considered less likely. ACT 112: Negative or not required by law. Electronically signed by: Cruz Berman M.D. 04/20/2022 5:03 PM
[2022-04-24] MEDS: ENOXAPARIN INJ 40 MG/0.4 ML SYR SQ SCH (15:33)
[2022-04-25] MEDS: ACETAMINOPHEN 325 MG TAB PO PRN ×3 (00:55→20:49)
[2022-04-25] MEDS: CEFEPIME 2,000 MG in SYRINGE 0 ML IV SCH ×3 (04:55→21:00)
[2022-04-25 07:16] LABS: Basophils # (auto) 0.08 K/uL (0-0.2); Basophils % (auto) 1.2 %; Eosinophils # (auto) 0.33 K/uL (0-0.50); Eosinophils % (auto) 4.9 %; Hematocrit (blood only) 32.2 % (34.1-44.9); Immature Granulocytes # (auto) 0.04 K/uL (0.00-0.02); Immature Granulocytes % (auto) 0.6 %; Lymphocytes # (auto) 2.56 K/uL (1.2-3.4); Lymphocytes % (auto) 37.6 %; Mean Corpuscular Hemoglobin 30.9 pg (25.0-34.0); Mean Corpuscular Hgb Conc 34.2 g/dL (32.0-36.0); Mean Corpuscular Volume 90.4 fL (80.0-100.0); Mean Platelet Volume 9.9 fL (9.4-12.3); Monocytes # (auto) 0.42 K/uL (0.24-0.82); Monocytes % (auto) 6.2 %; Neutrophils # (auto) 3.37 K/uL (1.4-6.5); Neutrophils % (auto) 49.5 %; Platelet Count 288 K/uL (130-400); RDW Coefficient of Variation 14.5 % (11.5-14.5); RDW Standard Deviation 47.9 fL (36.4-46.3); Red Blood Count 3.56 M/uL (3.93-5.22)
[2022-04-25] MEDS: ADVANCED PROBIOTIC 1250 MG CAPSULE PO SCH (07:16)
[2022-04-25] MEDS: metroNIDAZOLE 500 MG TAB PO SCH ×3 (07:16→20:51)
[2022-04-25] MEDS: METOPROLOL TARTRATE 25 MG TAB PO SCH ×2 (07:16→20:51)
[2022-04-25] MEDS: POTASSIUM CHLORIDE CRTAB 20 MEQ TABCR PO SCH (07:17)
[2022-04-25] MEDS: SPIRONOLACTONE 100 MG TAB PO SCH (07:17)
[2022-04-25] MEDS: NYSTATIN POWDER 15GM BTL EXT SCH ×2 (07:17→20:55)
[2022-04-25] MEDS: FUROSEMIDE 40 MG TAB PO SCH (07:17)
[2022-04-25 07:35] LABS: BUN Creatinine Ratio 46.8 (10-20); Calcium 8.8 mg/dl (8.5-10.1); Creatinine Clr Calc Pharmacy 159.6 ml/min; Est GFR (African American) 123.6 ml/min; Est GFR (Non-African American) 106.6 ml/min; Potassium 3.4 mmol/L (3.5-5.1)
[2022-04-25] MEDS: INSULIN ASPART PER UNIT SC SCH ×4 (09:01→20:48)
[2022-04-25] MEDS: LANTUS PER UNIT CHARGE SQ SCH ×2 (09:01→20:47)
[2022-04-25] MEDS: LOPERAMIDE HCL 2 MG CAP PO PRN (09:53)
--- NOTE | 2022-04-25 12:22 | Hospitalist Progress Note ---
Date of Service April 25, 2022 Assessment & Plan (1) Pressure ulcers of skin of multiple topographic sites: Plan: Multiple wounds scattered over body - please refer to wound care nurse documentation for full details and photos 04/20/2022 - 5cm x 5cm wound left buttock - large amount of purulent drainage expressed when rolling patient in bed. IV cefepime added to IV daptomycin patient was previously on for MSSA bacteremia. CT obtained that did not show evidence of deep abscess. General surgery consulted for wound debridement; patient underwent debridement in the OR on 04/21. 3cm x 3cm wound left lateral ankle over the malleolus - sloughing tissue pre sent. MRI ordered to evaluate for possible osteomyelitis however patient declined study. Ortho consulted, bedside debridement preformed 04/20. Vascular consult placed by ortho. BLE arterial duplex demonstrates mild diffuse disease BLE. No indications for for vascular surgery intervention. Intra-Op wound culture shows Enterobacter cloacae Plan: -Antibiotics changed to IV cefepime to cover for MSSA and Enterobacter cloacae in wound culture. Flagyl for anaerobic coverage. She will need IV cefepime through 05/17/2022. -Repeat blood culture is negative so far. -Dressing change as per surgery and wound care. Patient to have wound VAC placed on Tuesday. Seen by wound care for heel pressure ulcer; waffle boots ordered for offloading. Urinary retention Resolved. TOV successful on 04/24. Hypoxia Intermittent hypoxia noted, patient currently requiring 1-2L Continue on Lasix and spironolactone; spironolactone increased to 100 mg once daily. (2) MSSA bacteremia: Plan: Diagnosed during previous admission, currently on IV cefepime. Patient declined JILLIAN to evaluate for endocarditis during previous admission Will complete 6 weeks of therapy on 05/17 We will obtain weekly CBC, CMP and ESR Follow-up with ID Dr. Ellis (3) Generalized weakness: (4) Ambulatory dysfunction: Plan: Patient presenting from home with reports of generalized weakness, ambulatory dysfunction, frequent falls. Recently admitted to [facility] 04/04 through 04/14 after not receiving care for many years and was found to have acute diastolic CHF, aortic stenosis, multiple lower extremity wounds, imaging findings suggestive of cirrhosis, and MSSA bacteremia. PT/OT, case management to assist with placement (5) Type 2 diabetes mellitus: Plan: Hgb A1c 10.5 04/04/2022 Newly diagnosed during previous admission, discharged on metformin Utilize Lantus and NovoLog per protocol while hospitalized (6) Aortic stenosis: (7) Chronic diastolic CHF (congestive heart failure): Plan: Appears euvolemic, continue furosemide and spironolactone Patient to establish with [facility] cardiology (8) Cirrhosis: Plan: Appears compensated Imaging during previous admission suggestive of cirrhosis, no prior history of Patient to establish with [facility] (9) DVT prophylaxis: Plan: SQ Lovenox Full code Dispositionpatient was discharged home last admission despite being suggested to go to rehab. Patient would need extensive wound care and IV antibiotic. Case management on board; will need final duration and route of antibiotic from ID before discharge. Wound VAC to be placed on Tuesday; possible discharge on Tuesday/Tuesday to rehab. Admission and Anticipated Discharge Date Admission Date: April 19, 2022 Subjective Comfortably sitting up on the chair; not in any distress. Moving inside the room with help of a walker. Review of Systems Review of Systems: All systems reviewed & are unremarkable except as noted in Subjective Physical Exam Physical Exam: Constitutional: Awake, alert orient x3. Not in any distress. Morbidly obese. Respiratory: normal respiratory effort, lungs clear to auscultation, no wheeze, rales, rhonchi. Normal insp/exp effort, no accessory muscle use Cardiovascular: RRR, no murmur, no edema Vessels: no JVD or carotid bruit Chest: normal inspection of chest Abdomen: normal bowel sounds, soft, nontender, no hepatosplenomegaly Musculoskeletal: no cyanosis or clubbing, extremities motor strength 5/5 Skin: no rashes, warm and dry normal turgor Neurologic: PERRL, EOMI, accommodation nl, no face palsy, no dysarthria CN's II- XI intact bilaterally and moves all extremities Psychiatric: A+Ox3, euthymic affect Lymphatic: no cervical or axillary lymphadenopathy : deferred Results & Data Results & Data ([facility]) Vital Signs (Past 12 Hours) Vital Signs Temp Pulse Resp BP Pulse Ox O2 Del Method 04/25/22 07:12 36.6 C 80 18 105/70 95 Room Air Laboratory Results Laboratory Results WBC 6.80 K/ul (4.8-10.8) 04/25/22 06:33 RBC 3.56 M/uL (3.93-5.22) L 04/25/22 06:33 Hgb 11.0 g/dl (12.0-16.0) L 04/25/22 06:33 Hct 32.2 % (34.1-44.9) L 04/25/22 06:33 MCV 90.4 fL (80.0-100.0) 04/25/22 06:33 MCH 30.9 pg (25.0-34.0) 04/25/22 06:33 MCHC 34.2 g/dL (32.0-36.0) 04/25/22 06:33 RDW Std Deviation 47.9 fL (36.4-46.3) H 04/25/22 06:33 RDW Coeff of Chintan 14.5 % (11.5-14.5) 04/25/22 06:33 Plt Count 288 K/uL (130-400) 04/25/22 06:33 MPV 9.9 fL (9.4-12.3) 04/25/22 06:33 Immature Gran % (Auto) 0.6 % 04/25/22 06:33 Neut % (Auto) 49.5 % 04/25/22 06:33 Lymph % (Auto) 37.6 % 04/25/22 06:33 [place] % (Auto) 6.2 % 04/25/22 06:33 Eos % (Auto) 4.9 % 04/25/22 06:33 Baso % (Auto) 1.2 % 04/25/22 06:33 Neut # (Auto) 3.37 K/uL (1.4-6.5) 04/25/22 06:33 Lymph # (Auto) 2.56 K/uL (1.2-3.4) 04/25/22 06:33 [place] # (Auto) 0.42 K/uL (0.24-0.82) 04/25/22 06:33 Eos # (Auto) 0.33 K/uL (0-0.50) 04/25/22 06:33 Baso # (Auto) 0.08 K/uL (0-0.2) 04/25/22 06:33 Immature Gran # (Auto) 0.04 K/uL (0.00-0.02) H 04/25/22 06:33 Sodium 137 mmol/L (136-145) 04/25/22 06:33 Potassium 3.4 mmol/L (3.5-5.1) L 04/25/22 06:33 Chloride 100 mmol/L (98-107) 04/25/22 06:33 Carbon Dioxide 30 mmol/L (21-32) 04/25/22 06:33 Anion Gap 7 (3-11) 04/25/22 06:33 BUN 22 mg/dl (6-23) 04/25/22 06:33 Creatinine 0.47 mg/dl (0.6-1.2) L 04/25/22 06:33 Est Cr Clr Drug Dosing 159.6 ml/min 04/25/22 06:33 Est GFR ( Amer) 123.6 ml/min 04/25/22 06:33 Est GFR (Non-Af Amer) 106.6 ml/min 04/25/22 06:33 BUN/Creatinine Ratio 46.8 (10-20) H 04/25/22 06:33 Glucose 146 mg/dl (70-99(Fasting)) H 04/25/22 06:33 POC Glucose 234 mg/dl (70-99) H 04/25/22 11:57 Lactate 0.8 mmol/L (0.4-2.0) 04/20/22 16:02 Calcium 8.8 mg/dl (8.5-10.1) 04/25/22 06:33 Magnesium 2.0 mg/dl (1.7-2.4) 04/21/22 08:21 Total Bilirubin 0.4 mg/dl (0.2-1.0) 04/24/22 05:09 AST 23 U/L (13-39) 04/24/22 05:09 ALT 12 U/L (7-52) 04/24/22 05:09 Alkaline Phosphatase 123 U/L (34-104) H 04/24/22 05:09 Total Creatine Kinase 12 U/L (26-192) L 04/22/22 08:03 Troponin I High Sens 13.5 pg/ml (0-14) D 04/19/22 11:33 B-Natriuretic Peptide 585 pg/ml (0-100) H 04/19/22 12:04 Total Protein 7.3 gm/dl (6.0-8.3) 04/24/22 05:09 Albumin 2.8 gm/dl (3.4-5.0) L 04/24/22 05:09 Globulin 4.5 gm/dl (2.5-4.0) H 04/24/22 05:09 Albumin/Globulin Ratio 0.6 (0.9-2) L 04/24/22 05:09 Urine Color Yellow 04/19/22 18:50 Urine Appearance Clear (Clear) 04/19/22 18:50 Urine pH 5.5 (4.5-7.5) 04/19/22 18:50 Ur Specific [place] 1.014 (1.000-1.030) 04/19/22 18:50 Urine Protein Trace (Negative) H 04/19/22 18:50 Urine Glucose (UA) Negative (Negative) 04/19/22 18:50 Urine Ketones Negative (Negative) 04/19/22 18:50 Urine Blood 1+ (Negative) H 04/19/22 18:50 Urine Nitrite Negative (Negative) 04/19/22 18:50 Urine Bilirubin Negative (Negative) 04/19/22 18:50 Urine Urobilinogen Negative (Negative) 04/19/22 18:50 Ur Leukocyte Esterase Negative (Negative) 04/19/22 18:50 Urine WBC (Auto) 1-5 /hpf (0-5) 04/19/22 18:50 Urine RBC (Auto) 0-4 /hpf (0-4) 04/19/22 18:50 U Hyaline Cast (Auto) 5-10 /lpf (0-5) H 04/19/22 18:50 U Epithel Cells (Auto) 10-20 /lpf (0-5) H 04/19/22 18:50 Urine Bacteria (Auto) Negative (Negative) 04/19/22 18:50 Urine Yeast Budding (None Prsent) A 04/19/22 18:50 Stl C. diff Tox B Gene Negative Cdiff Gene (Neg) 04/23/22 19:30 SARS-CoV-2, RNA, NAAT NEGATIVE (NEGATIVE) 04/19/22 13:[address] 04/20/22 09:53 CT pelvis w/IV con only HISTORY: 61 years-old Female left buttock wound, eval for abscess patient presents with wound of the left buttock COMPARISON: 04/04/2022 TECHNIQUE: Axial CT images of the pelvis were obtained following the intravenous administration of 94 mL Optiray 350. A dose lowering technique was used consistent with the principals of DMITRIY. FINDINGS: Marginal nodularity of the liver is redemonstrated suspicious for cirrhosis. No hepatic mass identified. Nonspecific gallbladder wall thickening. Atherosclerosis of the aorta without aneurysm. Calcified pelvic lymph nodes are redemonstrated. 4 mm nonobstructing calculus of the inferior pole left kidney. Decompressed urinary bladder with Lozano catheter in place. Postmenopausal endometrium appears to be mildly thickened. No bowel obstruction or bowel wall thickening. Moderate colonic fecal retention. Normal appendix. Small fat filled periumbilical hernia, diastases of 2.7 cm. There is a large left buttock soft tissue wound measuring approximately 3.8 cm transversely. There is a large amount of air and/or packing material extending into the wound into the proximal left thigh. This is most pronounced medially however air and inflammatory stranding tracks into the hamstring and abductor musculature. No drainable fluid collection. Degenerative changes of the spine, pelvis and hips. No acute fracture. No destructive bone lesion. IMPRESSION: 1. Large left buttock ulcer with inflammatory stranding and deep tissue gas. Findings may be secondary to recent intervention, however should be correlated clinically to exclude fasciitis. Additionally, there is evidence of associated cellulitis with myositis. No drainable fluid collection. 2. No bowel obstruction or bowel wall thickening. 3. Left nephrolithiasis. 4. Nonspecific gallbladder wall thickening. Findings could be correlated with ultrasound. 5. Additional findings as above. ACT 112: Negative or not required by law. The above report was generated using voice recognition software. It may contain grammatical, syntax or spelling errors. Electronically signed by: Michael Rodriguez M.D. 04/20/2022 3:01 PM Ankle MRI 04/20/22 09:58 MR ankle LT wo con CLINICAL HISTORY: 61 years-old Female with left lateral ankle wound, eval for osteo. Chronic pain of the left ankle COMPARISON: Left ankle radiographs of same day TECHNIQUE: Bowl Topper localizer MR images of the left ankle were performed without contrast. No additional images were obtained. FINDINGS/IMPRESSION: Limited computer engineer images were obtained. The patient decided to abort the study. No diagnostic images were obtained. The patient will not be charged for this exam. ACT 112: Negative or not required by law. The above report was generated using voice recognition software. It may contain grammatical, syntax or spelling errors. Electronically signed by: Michael Rodriguez M.D. 04/20/2022 1:52 PM Ankle X-Ray 04/20/22 10:20 LEFT ANKLE 3 VIEWS CLINICAL HISTORY: Wound. FINDINGS: 3 views of the left ankle are correlated with CT scan of the left tibia and fibula dated 04/04/2022. The skeletal structures are osteopenic. No fracture is seen. There is no bony erosion or periostitis. The ankle mortise is intact. No joint effusion is identified. There is a large plantar heel spur. Degenerative spurring is seen along the dorsal aspect of the tarsal bones. Soft tissue edema is present throughout the left lower extremity. There is advanced atherosclerotic calcification of the regional arteries. Phleboliths are noted in the calf. No soft tissue gas is seen. IMPRESSION: 1. Soft tissue swelling with no acute bony abnormality identified. 2. Osteopenia with degenerative change and a large heel spur as above. Electronically signed by: Israel Johnson M.D. 04/20/2022 12:24 PM Duplex Scan Lower Extremity Artery 04/20/22 14:59 US arterial duplex LE BI HISTORY: 61 years-old Female non healing wounds chronic nonhealing wounds of the lower extremities COMPARISON: None TECHNIQUE: Multiple real-time sonographic images of the lower extremity arterial structures were obtained assessing grayscale appearance, color and spectral flow FINDINGS: RIGHT: Triphasic waveforms within the common femoral, superficial femoral and anterior tibial arteries with monophasic waveforms extending from the popliteal artery into the lower leg. No arterial occlusion or significantly elevated peak systolic velocities within the right lower extremity. Atherosclerotic plaque is noted. LEFT: Triphasic waveforms within the common femoral, superficial femoral and anterior tibial arteries with monophasic waveforms extending from the popliteal artery into the lower leg. No arterial occlusion or significantly elevated peak systolic velocities within the left lower extremity. Atherosclerotic plaque is noted. Distal portions of the anterior tibial, peroneal, posterior tibial and dorsalis pedis arteries aren't able to be visualized secondary to overlying bandages. ABIs were also unable to be obtained secondary to these same reasons. IMPRESSION: 1. No arterial occlusion or significantly elevated peak systolic velocities identified to suggest high-grade stenosis. 2. Limited exam as above. 3. Monophasic waveforms of the lower legs. ACT 112: Negative or not required by law. The above report was generated using voice recognition software. It may contain grammatical, syntax or spelling errors. Electronically signed by: Michael Rodriguez M.D. 04/21/2022 9:12 AM Chest X-Ray 04/20/22 15:38 XR chest 1V portable CLINICAL HISTORY: hypoxia COMPARISON STUDY: Chest CT April 04, 2022. Chest radiograph April 19, 2022. FINDINGS: Right PICC is in place. No pneumothorax or pleural effusion is present. Cardiomegaly is unchanged. Patient is rotated. Interstitial thickening is again noted. Linear bilateral opacities persist. There is no lobar consolidation. IMPRESSION: 1. Cardiomegaly. Mild interstitial thickening. This may reflect pulmonary vascular congestion without overt pulmonary edema. 2. Linear bilateral opacities which favor atelectasis. An infectious process could appear similar although is considered less likely. ACT 112: Negative or not required by law. Electronically signed by: Cruz Berman M.D. 04/20/2022 5:03 PM
[2022-04-25] MEDS ORDERED: POTASSIUM CHLORIDE CRTAB 20 MEQ TABCR PO SCH (12:30)
--- NOTE | 2022-04-25 12:58 | Surgery Progress Note ---
Date of Service April 25, 2022 Assessment & Plan (1) Pressure ulcers of skin of multiple topographic sites: Plan: continue dressings Admission and Anticipated Discharge Date Admission Date: April 19, 2022 Subjective no complaints having diarrhea multiple dressing changes Review of Systems Constitutional: no fever and no chills Respiratory: no dyspnea Cardiovascular: no chest pain Gastrointestinal: + diarrhea/loose stools; no abdominal pain, no nausea and no vomiting Genitourinary: no dysuria Integumentary: no lesions Physical Exam Constitutional: WD/WN, vitals as above Eyes: PERRL, conjunctivae normal, anicteric sclerae Neck: trachea midline Respiratory: no labored breathing Cardiovascular: RRR, no murmur, no edema Gastrointestinal (Abdomen): Inspection/Auscultation: abdomen normal to inspection and normal bowel sounds Percussion/Palpation: abdomen soft; abdomen nontender Musculoskeletal: Head/Neck/Chest: normocephalic and head atraumatic Skin: + ulcer (dressing dry) Results & Data ([facility]) Vital Signs (Past 12 Hours) Vital Signs Temp Pulse Resp BP Pulse Ox O2 Del Method 04/25/22 07:12 36.6 C 80 18 105/70 95 Room Air
[2022-04-25] MEDS: ENOXAPARIN INJ 40 MG/0.4 ML SYR SQ SCH (16:22)
[2022-04-25] MEDS: MELATONIN 3 MG TAB PO SCH (20:50)
[2022-04-26] MEDS: CEFEPIME 2,000 MG in SYRINGE 0 ML IV SCH ×3 (05:14→20:52)
[2022-04-26 07:15] LABS: Basophils # (auto) 0.07 K/uL (0-0.2); Basophils % (auto) 1.2 %; Eosinophils # (auto) 0.29 K/uL (0-0.50); Eosinophils % (auto) 4.8 %; Hematocrit (blood only) 35.7 % (34.1-44.9); Hemoglobin 11.9 g/dl (12.0-16.0); Immature Granulocytes # (auto) 0.03 K/uL (0.00-0.02); Immature Granulocytes % (auto) 0.5 %; Lymphocytes # (auto) 2.13 K/uL (1.2-3.4); Lymphocytes % (auto) 35.4 %; Mean Corpuscular Hemoglobin 30.8 pg (25.0-34.0); Mean Corpuscular Hgb Conc 33.3 g/dL (32.0-36.0); Mean Corpuscular Volume 92.5 fL (80.0-100.0); Mean Platelet Volume 9.5 fL (9.4-12.3); Monocytes # (auto) 0.34 K/uL (0.24-0.82); Monocytes % (auto) 5.7 %; Neutrophils # (auto) 3.15 K/uL (1.4-6.5); Neutrophils % (auto) 52.4 %; Platelet Count 271 K/uL (130-400); RDW Coefficient of Variation 14.9 % (11.5-14.5); RDW Standard Deviation 50.4 fL (36.4-46.3); Red Blood Count 3.86 M/uL (3.93-5.22); White Blood Count 6.01 K/ul (4.8-10.8)
[2022-04-26 07:37] LABS: BUN Creatinine Ratio 35.8 (10-20); C Reactive Protein 1.67 mg/dl (0-0.5); Calcium 9.2 mg/dl (8.5-10.1); Creatinine Clr Calc Pharmacy 141.5 ml/min; Est GFR (African American) 118.8 ml/min; Est GFR (Non-African American) 102.5 ml/min
[2022-04-26] MEDS: METOPROLOL TARTRATE 25 MG TAB PO SCH ×2 (08:16→20:47)
[2022-04-26] MEDS: FUROSEMIDE 40 MG TAB PO SCH (08:16)
[2022-04-26] MEDS: SPIRONOLACTONE 100 MG TAB PO SCH (08:17)
[2022-04-26] MEDS: POTASSIUM CHLORIDE CRTAB 20 MEQ TABCR PO SCH (08:17)
[2022-04-26] MEDS: metroNIDAZOLE 500 MG TAB PO SCH ×3 (08:17→20:48)
[2022-04-26] MEDS: ADVANCED PROBIOTIC 1250 MG CAPSULE PO SCH (08:17)
[2022-04-26] MEDS: NYSTATIN POWDER 15GM BTL EXT SCH ×2 (08:18→20:52)
[2022-04-26] MEDS: INSULIN ASPART PER UNIT SC SCH ×4 (08:22→20:38)
[2022-04-26] MEDS: LANTUS PER UNIT CHARGE SQ SCH ×2 (08:23→20:53)
--- NOTE | 2022-04-26 10:16 | Progress Notes ---
DATE OF SERVICE: 04/26/2022. The patient is resting in a chair. Leg is elevated, but rotated outward with pressure on the lateral side of the ankle. I offered some redirection to prop on a pillow and avoid pressure on the lateral side of the ankle. The dressing is changed. The wound is moist, but there appears to be a progress americo filling of the wound. Some fibrinous exudate. No erythema or purulence. The plan is to avoid p ressure on the lateral ankle. Consider a wound VAC. Continue wound care. We will continue to monit or. The MRI was nondiagnostic as she did not complete the exam. Circulation felt to be adequate by vascular surgery consult. Job ID: [id number]
--- NOTE | 2022-04-26 11:10 | Infectious Disease Progress Nt ---
Date of Service April 26, 2022 Assessment & Plan (1) Pressure ulcers of skin of multiple topographic sites: (2) MSSA bacteremia: Plan: She was discharged on IV Cefazolin with plans for 6 week course through 05/07/22. (04/06-05/07) but changed to Daptomycin on discharge (I suspect d/t dosing ease but I dont see notation of this and patient unable to tell me) (3) Wound of left buttock: Plan 61 yo female with PMH chronic diastolic CHF, aortic stenosis, DM type II, liver cirrhosis, recent admission after fall found to have MSSA bacteremia on Daptomycin therapy who was readmitted to [facility] on 04/20 for worsening sacral and LE wound. ID consulted for antibiotic management. Large left buttock ulcer with inflammatory stranding and deep tissue gas. w/ cellulitis with myositis. No drainable fluid collection. MRI of ankle ordered but stopped and not completed (notes state patient aborted study) . 04/20 Xray L ankle negative for gas or osteomyelitis. 04/20 Arterial dopplers of LE showed no significant stenosis. Patient was started on IV Daptomycin (continued) and Given Cefepime but changed to Zosyn. 04/21 Went to OR for sacral debridement. Findings "There was necrotic tissue, fibrinous exudate, purulent fluid extending all the way to the bone." OR cultures are growing E. Cloacae (S: Cefepime, Zosyn, Cipro) ECG reviewed and QTc <500 Recommend: Cefepime 2G IV TID and Flagyl 500mg po TID while inpatient Cefepime will cover MSSA so while she is inpatient we can keep her on Cefepime/Flagyl to cover her wound infection and MSSA bacteremia On discharge to Rehab: -DC Cefepime and Flagyl -Start Cipro 750mg po BID with End of therapy 05/05/22 -Start Cefazolin 2G IV TID with 6 week course through 05/07/22 -Weekly CBC with diff and CMP to patients primary care physician. Please call [facility] with any questions or concerns Kimberly Gunn MD [facility], [facility] Admission and Anticipated Discharge Date Admission Date: April 19, 2022 Subjective Subsequent visit was provided via telemedicine using two-way real-time interacti ve telecommunication between the patient and the telemedicine provider. For the duration of the visit, the provider was performing the assessment from a different facility than the patient. This includesuse of bluetooth stethoscope forauscultationperformed by the telepresenter that the telemedicine provider can hear if described in the physical exam. Power Ballast Machine Operator contact information: Please call [facility] Center [phone]. (Phone Number For Physician Use Only) After establishing a telemedicine visit, patient was: Patient was verified with two unique identifiers, Patient/authorized rep acknowledged consent and understanding and Gave permission to continue telehealth session 24 hours SURY HD Stable, Afebrile S: Patient tells me she is going to rehab. No complaints. Physical Exam Constitutional: NAD PICC site c/d/i Skin: wound vac on L buttock x 2 and L ankle Results & Data ([facility]) Vital Signs (Past 12 Hours) Vital Signs Temp Pulse Resp BP Pulse Ox O2 Del Method 04/26/22 07:57 36.3 C L 78 18 135/78 96 Room Air Laboratory Results Laboratory Results - last 48 hr 04/24/22 04/24/22 04/25/22 17:04 20:38 06:33 WBC 6.80 RBC 3.56 L Hgb 11.0 L Hct 32.2 L MCV 90.4 MCH 30.9 MCHC 34.2 RDW Std Deviation 47.9 H RDW Coeff of Chintan 14.5 Plt Count 288 MPV 9.9 Immature Gran % (Auto) 0.6 Neut % (Auto) 49.5 Lymph % (Auto) 37.6 [place] % (Auto) 6.2 Eos % (Auto) 4.9 Baso % (Auto) 1.2 Neut # (Auto) 3.37 Lymph # (Auto) 2.56 [place] # (Auto) 0.42 Eos # (Auto) 0.33 Baso # (Auto) 0.08 Immature Gran # (Auto) 0.04 H ESR Sodium Potassium Chloride Carbon Dioxide Anion Gap BUN Creatinine Est Cr Clr Drug Dosing Est GFR ( Amer) Est GFR (Non-Af Amer) BUN/Creatinine Ratio Glucose POC Glucose 170 H 171 H Calcium C-Reactive Protein 04/25/22 04/25/22 04/25/22 06:33 08:09 11:57 WBC RBC Hgb Hct MCV MCH MCHC RDW Std Deviation RDW Coeff of Chintan Plt Count MPV Immature Gran % (Auto) Neut % (Auto) Lymph % (Auto) [place] % (Auto) Eos % (Auto) Baso % (Auto) Neut # (Auto) Lymph # (Auto) [place] # (Auto) Eos # (Auto) Baso # (Auto) Immature Gran # (Auto) ESR Sodium 137 Potassium 3.4 L Chloride 100 Carbon Dioxide 30 Anion Gap 7 BUN 22 Creatinine 0.47 L Est Cr Clr Drug Dosing 159.6 Est GFR ( Amer) 123.6 Est GFR (Non-Af Amer) 106.6 BUN/Creatinine Ratio 46.8 H Glucose 146 H POC Glucose 166 H 234 H Calcium 8.8 C-Reactive Protein 04/25/22 04/25/22 04/26/22 17:12 20:25 06:48 WBC 6.01 RBC 3.86 L Hgb 11.9 L Hct 35.7 MCV 92.5 MCH 30.8 MCHC 33.3 RDW Std Deviation 50.4 H RDW Coeff of Chintan 14.9 H Plt Count 271 MPV 9.5 Immature Gran % (Auto) 0.5 Neut % (Auto) 52.4 Lymph % (Auto) 35.4 [place] % (Auto) 5.7 Eos % (Auto) 4.8 Baso % (Auto) 1.2 Neut # (Auto) 3.15 Lymph # (Auto) 2.13 [place] # (Auto) 0.34 Eos # (Auto) 0.29 Baso # (Auto) 0.07 Immature Gran # (Auto) 0.03 H ESR Sodium Potassium Chloride Carbon Dioxide Anion Gap BUN Creatinine Est Cr Clr Drug Dosing Est GFR ( Amer) Est GFR (Non-Af Amer) BUN/Creatinine Ratio Glucose POC Glucose 183 H 148 H Calcium C-Reactive Protein 04/26/22 04/26/22 04/26/22 06:48 06:48 08:07 WBC RBC Hgb Hct MCV MCH MCHC RDW Std Deviation RDW Coeff of Chintan Plt Count MPV Immature Gran % (Auto) Neut % (Auto) Lymph % (Auto) [place] % (Auto) Eos % (Auto) Baso % (Auto) Neut # (Auto) Lymph # (Auto) [place] # (Auto) Eos # (Auto) Baso # (Auto) Immature Gran # (Auto) ESR 102 H Sodium 138 Potassium 4.0 Chloride 103 Carbon Dioxide 30 Anion Gap 5 BUN 19 Creatinine 0.53 L Est Cr Clr Drug Dosing 141.5 Est GFR ( Amer) 118.8 Est GFR (Non-Af Amer) 102.5 BUN/Creatinine Ratio 35.8 H Glucose 148 H POC Glucose 148 H Calcium 9.2 C-Reactive Protein 1.67 H 04/26/22 12:08 WBC RBC Hgb Hct MCV MCH MCHC RDW Std Deviation RDW Coeff of Chintan Plt Count MPV Immature Gran % (Auto) Neut % (Auto) Lymph % (Auto) [place] % (Auto) Eos % (Auto) Baso % (Auto) Neut # (Auto) Lymph # (Auto) [place] # (Auto) Eos # (Auto) Baso # (Auto) Immature Gran # (Auto) ESR Sodium Potassium Chloride Carbon Dioxide Anion Gap BUN Creatinine Est Cr Clr Drug Dosing Est GFR ( Amer) Est GFR (Non-Af Amer) BUN/Creatinine Ratio Glucose POC Glucose 262 H Calcium C-Reactive Protein Microbiology 04/21/22 Unknown Buttock,Left Gram Stain - Final 04/21/22 Unknown Buttock,Left Aerobic and Anaerobic Culture - Final Enterobacter cloacae Bacteroides fragilis 04/20/22 16:12 Blood Aerobic Blood Culture - Final No growth in Aerobic bottle after 5 days. 04/20/22 16:12 Blood Anaerobic Blood Culture - Final No growth in Anaerobic bottle after 5 days. 04/20/22 16:01 Blood Aerobic Blood Culture - Final No growth in Aerobic bottle after 5 days. 04/20/22 16:01 Blood Anaerobic Blood Culture - Final No growth in Anaerobic bottle after 5 days. 04/19/22 18:50 Urine,Straight Cath Urine Culture - Final Yeast not Rola albicans/dub 04/19/22 15:45 Ankle,Left Gram Stain - Final 04/19/22 15:45 Ankle,Left Wound Culture - Final Yeast not Rola albicans/dub 04/19/22 15:45 Buttock,Left Gram Stain - Final 04/19/22 15:45 Buttock,Left Wound Culture - Final Low counts mixed probable gastrointestinal microbiota. No further identifications or sensitivities to follow.
--- NOTE | 2022-04-26 13:35 | Student Report ---
[facility] Student Progress Note Date of Service Date of service: April 26, 2022 Subjective Subjective: Pt OOB in chair this morning. Pt states she is feeling much better since our last visit. Denies fevers, chills, night sweats, BOBBY, dizzy/lightheadedness, CP, SOB, N/V. Pt reports several episodes of diarrhea over the weekend, per her last episode was yesterday. She states that her appetite is unchanged, no s/s reflux. Pt denies issues with voiding since gandara removed. Denies pain at wound sites or in general. ROS ROS: See above for pertinent positives & negatives. A total of 10 systems reviewed and were otherwise negative. Physical Exam Physical Exam: Vital Signs Temp 36.6 C 04/26/22 11:30 Pulse 81 04/26/22 11:30 Resp 17 04/26/22 11:30 BP 125/78 04/26/22 11:30 Pulse Ox 96 04/26/22 11:30 O2 Del Method 04/26/22 11:30 O2 Flow Rate 2 04/24/22 14:52 Intake & Output 04/25/22 04/26/22 04/26/22 18:59 06:59 18:59 Intake Total 400 / 640 240 / 640 275 / 275 Output Total 401 / 401 Balance -1 / 239 240 / 239 275 / 275 Intake: Oral 400 / 640 240 / 640 275 / 275 Output: Urine 400 / 400 # Bowel Movements 1 / Other: # Unmeasured Voids 2 2 1 General: Well-appearing, in no significant distress. Converses easily and appropriately, cooperative. HEENT: No scleral icterus, PERRLA, neck supple. Atraumatic. Normocephalic. Cardiovascular: S2, S2, regular rate. +3/6 systolic murmur heard over aortic valve. Bilateral radial and DP pulses +1 palpable. Pulmonary: Clear to auscultation bilaterally, normal work of breathing. Slightly diminished d/t body habitus. Pt on RA. Abdomen: Soft, nontender, nondistended, positive bowel sounds quadrants x4. Musculoskeletal: Atraumatic, no peripheral edema. Neurologic: Patient awake alert and oriented x 3, full strength in all extremities. Skin: Warm, dry, no rash. Multiple pressure injuries in various stages of healing. Wound vacs to left lateral heel and left buttocks wounds by CWON. Results Results: Short CBC 04/26/22 06:48 WBC 6.01 Hgb 11.9 L Hct 35.7 Plt Count 271 BMP 04/26/22 06:48 Sodium 138 Potassium 4.0 Chloride 103 Carbon Dioxide 30 BUN 19 Creatinine 0.53 L Glucose 148 H Calcium 9.[address] 04/20/22 09:53 CT pelvis w/IV con only HISTORY: 61 years-old Female left buttock wound, eval for abscess patient presents with wound of the left buttock COMPARISON: 04/04/2022 TECHNIQUE: Axial CT images of the pelvis were obtained following the intravenous administration of 94 mL Optiray 350. A dose lowering technique was used consistent with the principals of DMITRIY. FINDINGS: Marginal nodularity of the liver is redemonstrated suspicious for cirrhosis. No hepatic mass identified. Nonspecific gallbladder wall thickening. Atherosclerosis of the aorta without aneurysm. Calcified pelvic lymph nodes are redemonstrated. 4 mm nonobstructing calculus of the inferior pole left kidney. Decompressed urinary bladder with Gandara catheter in place. Postmenopausal endometrium appears to be mildly thickened. No bowel obstruction or bowel wall thickening. Moderate colonic fecal retention. Normal appendix. Small fat filled periumbilical hernia, diastases of 2.7 cm. There is a large left buttock soft tissue wound measuring approximately 3.8 cm transversely. There is a large amount of air and/or packing material extending into the wound into the proximal left thigh. This is most pronounced medially however air and inflammatory stranding tracks into the hamstring and abductor musculature. No drainable fluid collection. Degenerative changes of the spine, pelvis and hips. No acute fracture. No destructive bone lesion. IMPRESSION: 1. Large left buttock ulcer with inflammatory stranding and deep tissue gas. Findings may be secondary to recent intervention, however should be correlated clinically to exclude fasciitis. Additionally, there is evidence of associated cellulitis with myositis. No drainable fluid collection. 2. No bowel obstruction or bowel wall thickening. 3. Left nephrolithiasis. 4. Nonspecific gallbladder wall thickening. Findings could be correlated with ultrasound. 5. Additional findings as above. ACT 112: Negative or not required by law. The above report was generated using voice recognition software. It may contain grammatical, syntax or spelling errors. Electronically signed by: Michael Rodriguez M.D. 04/20/2022 3:01 PM Ankle MRI 04/20/22 09:58 MR ankle LT wo con CLINICAL HISTORY: 61 years-old Female with left lateral ankle wound, eval for osteo. 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 No additional images were obtained. FINDINGS/IMPRESSION: Limited isolation washer images were obtained. The patient decided to abort the study. No diagnostic images were obtained. The patient will not be charged for this exam. ACT 112: Negative or not required by law. The above report was generated using voice recognition software. It may contain grammatical, syntax or spelling errors. Electronically signed by: Michael Rodriguez M.D. 04/20/2022 1:52 PM Ankle X-Ray 04/20/22 10:20 LEFT ANKLE 3 VIEWS CLINICAL HISTORY: Wound. FINDINGS: 3 views of the left ankle are correlated with CT scan of the left tibia and fibula dated 04/04/2022. The skeletal structures are osteopenic. No fr acture is seen. There is no bony erosion or periostitis. The ankle mortise is intact. No joint effusion is identified. There is a large plantar heel spur. Degenerative spurring is seen along the dorsal aspect of the tarsal bones. Soft tissue edema is present throughout the left lower extremity. There is advanced atherosclerotic calcification of the regional arteries. Phleboliths are noted in the calf. No soft tissue gas is seen. IMPRESSION: 1. Soft tissue swelling with no acute bony abnormality identified. 2. Osteopenia with degenerative change and a large heel spur as above. Electronically signed by: Israel Johnson M.D. 04/20/2022 12:24 PM Duplex Scan Lower Extremity Artery 04/20/22 14:59 US arterial duplex LE BI HISTORY: 61 years-old Female non healing wounds chronic nonhealing wounds of the lower extremities COMPARISON: None TECHNIQUE: Multiple real-time sonographic images of the lower extremity arterial structures were obtained assessing grayscale appearance, color and spectral flow FINDINGS: RIGHT: Triphasic waveforms within the common femoral, superficial femoral and anterior tibial arteries with monophasic waveforms extending from the popliteal artery into the lower leg. No arterial occlusion or significantly elevated peak systolic velocities within the right lower extremity. Atherosclerotic plaque is noted. LEFT: Triphasic waveforms within the common femoral, superficial femoral and anterior tibial arteries with monophasic waveforms extending from the popliteal artery into the lower leg. No arterial occlusion or significantly elevated peak systolic velocities within the left lower extremity. Atherosclerotic plaque is noted. Distal portions of the anterior tibial, peroneal, posterior tibial and dorsalis pedis arteries aren't able to be visualized secondary to overlying bandages. ABIs were also unable to be obtained secondary to these same reasons. IMPRESSION: 1. No arterial occlusion or significantly elevated peak systolic velocities identified to suggest high-grade stenosis. 2. Limited exam as above. 3. Monophasic waveforms of the lower legs. ACT 112: Negative or not required by law. The above report was generated using voice recognition software. It may contain grammatical, syntax or spelling errors. Electronically signed by: Michael Rodriguez M.D. 04/21/2022 9:12 AM Chest X-Ray 04/20/22 15:38 XR chest 1V portable CLINICAL HISTORY: hypoxia COMPARISON STUDY: Chest CT April 04, 2022. Chest radiograph April 19, 2022. FINDINGS: Right PICC is in place. No pneumothorax or pleural effusion is present. Cardiomegaly is unchanged. Patient is rotated. Interstitial thickening is again noted. Linear bilateral opacities persist. There is no lobar consolidation. IMPRESSION: 1. Cardiomegaly. Mild interstitial thickening. This may reflect pulmonary vascular congestion without overt pulmonary edema. 2. Linear bilateral opacities which favor atelectasis. An infectious process could appear similar although is considered less likely. ACT 112: Negative or not required by law. Electronically signed by: Cruz Berman M.D. 04/20/2022 5:03 PM A&P A&P: 1. Multiple pressure wounds in various healing stages: Left buttock wound now POD #5 s/p debridement in OR. Wound culture grew enterobacter cloacae. Wound vac now in place to left buttock and left lateral ankle wounds with continuous therapy. Per ID recommenations: Cefepime 2G IV TID and Flagyl 500mg po TID while inpatient Cefepime will cover MSSA so while she is inpatient we can keep her on Cefepime/Flagyl to cover her wound infection and MSSA bacteremia On discharge: -DC Cefepime and Flagyl -Start Cipro 750mg po BID with End of therapy 05/05/22 -Start Cefazolin 2G IV TID with 6 week course through 05/17/22 -Weekly CBC with diff and CMP to patients primary care physician. These will cover wound infection and MSSA bacteremia. Pt now agreeable to EGD and JILLIAN, if no vegetation, Ancef will only be required to continue for two weeks from last negative culture which was 04/23. 2. MSSA bacteremia: JILLIAN still needed to evaluate for endocarditis/vegetation, pt has decline so far. See above ID recs for continued antibiotic regimens. Most recent blood cultures have been negative. 3. Weakness/ambulatory dysfunction: Pt continues to work with PT/OT and case management for discharge planning. Pt said this morning that her an her are selling their multi-level home and are moving to a one level apartment. 4. DM2 (new diagnosis last admission): A1C on 04/04 was 10.5. Currently holding metformin while inpatient. Continue blood glucose monitoring ACHS, PRN. Continue aspart SSI and glargine 8 units BID. 5. Hypoxia: Pt with episode of hypoxia last week, increased O2 requirements. Now on RA, denies difficulty breathing. Spironolactone dose increased to 100mg. 6. Aortic stenosis/Chronic diastolic HF: Pt appears to be euvolemic. Last EF 50-55% beginning of March. Continue furosemide, potassium, spironolactone, and metoprolol. Needs to f/u with truck washer outpatient. 7. Cirrhosis: Found on imaging with last admission. Needs to follow-up with GI outpatient. 8. New onset diarrhea: Per patient, no stool since yesterday. Send stool for C. Diff. testing if pt continues with diarrhea. Continue probiotic supplement and loperamide. Monitor BMP in am. DVT prophylaxis: Continue enoxaparin 40mg subQ inj daily. Disposition: Pt will require rehab post discharge, case management following.
[2022-04-26] MEDS: ENOXAPARIN INJ 40 MG/0.4 ML SYR SQ SCH (14:41)
--- NOTE | 2022-04-26 15:26 | Hospitalist Progress Note ---
Date of Service April 26, 2022 Assessment & Plan (1) Pressure ulcers of skin of multiple topographic sites: Plan: Multiple wounds scattered over body - please refer to wound care nurse documentation for full details and photos 04/20/2022 - 5cm x 5cm wound left buttock - large amount of purulent drainage expressed when rolling patient in bed. IV cefepime added to IV daptomycin patient was previously on for MSSA bacteremia. CT obtained that did not show evidence of deep abscess. General surgery consulted for wound debridement; patient underwent debridement in the OR on 04/21. 3cm x 3cm wound left lateral ankle over the malleolus - sloughing tissue pre sent. MRI ordered to evaluate for possible osteomyelitis however patient declined study. Ortho consulted, bedside debridement preformed 04/20. Vascular consult placed by ortho. BLE arterial duplex demonstrates mild diffuse disease BLE. No indications for for vascular surgery intervention. Intra-Op left buttock wound debridement culture shows Enterobacter cloacae ID following. Antibiotics changed to IV cefepime to cover for MSSA and Enterobacter cloacae in wound culture. Flagyl for anaerobic coverage. On discharge to Rehab: -DC Cefepime and Flagyl -Start Cipro 750mg po BID with End of therapy 05/05/22 -Start Cefazolin 2G IV TID with 6 week course through 05/17/22 -Weekly CBC with diff and CMP to patients primary care physician. Wound care following. Plan on wound VAC placement to left lateral ankle and left buttock wounds today. Waffle boots ordered for ankle offloading. (2) MSSA bacteremia: Plan: Diagnosed during previous admission, currently on IV cefepime. Patient declined JILLIAN to evaluate for endocarditis during previous admission however patient is now agreeable. Due to recently diagnosed cirrhosis, patient will need EGD to evaluate for varices prior to JILLIAN. GI consulted, planning on EGD tomorrow. JILLIAN likely the following day. Will complete 6 weeks of therapy on 05/17 Obtain weekly CBC, CMP and ESR Follow-up with ID Dr. Ellis Urinary retention Resolved. TOV successful on 04/24. Hypoxia Resolved Intermittent hypoxia noted, patient briefly required 1-2L Continue on Lasix; spironolactone increased to 100 mg once daily. (3) Generalized weakness: (4) Ambulatory dysfunction: Plan: Patient presenting from home with reports of generalized weakness, ambulatory dysfunction, frequent falls. Recently admitted to [facility] 04/04 through 04/14 after not receiving care for many years and was found to have acute diastolic CHF, aortic stenosis, multiple lower extremity wounds, imaging findings suggestive of cirrhosis, and MSSA bacteremia. PT/OT, case management to assist with placement (5) Type 2 diabetes mellitus: Plan: Hgb A1c 10.5 04/04/2022 Newly diagnosed during previous admission, discharged on metformin Utilize Lantus and NovoLog per protocol while hospitalized (6) Aortic stenosis: (7) Chronic diastolic CHF (congestive heart failure): Plan: Appears euvolemic, continue furosemide and spironolactone Patient to establish with [facility] cardiology (8) Cirrhosis: Plan: Appears compensated Imaging during previous admission suggestive of cirrhosis, no prior history of Patient [facility] to evaluate for esophageal varices as above (9) DVT prophylaxis: Plan: SQ Lovenox Dispositionpatient was discharged home last admission despite being suggested to go to rehab. Patient would need extensive wound care and IV antibiotic. Case management on board. Antibiotic recommendations received from ID. Patient now undergoing EGD to evaluate for esophageal varices tomorrow and likely JILLIAN the following day. Wound vacs being placed today. Admission and Anticipated Discharge Date Admission Date: April 19, 2022 Supervising Physician Co-Signing Physician Notes Patient seen and examined independently. Agree with above documentation by Lili YU. Patient had wound VAC placed for her sacral wound and heel ulcer. MSSA bacteremiacurrently on cefazolin as per ID. Patient wants to undergo JILLIAN to rule out infective endocarditis to shorten the duration of antibiotic if it is negative. Discussed with cardiology; need to rule out esophageal varices before undergoing JILLIAN. GI to do endoscopy tomorrow AM. Cardiology planning to do JILLIAN on Tuesday if no esophageal varices present. Discussed with ID; antibiotic duration will be till May 03 if JILLIAN is negative. Sacral wound/heel ulcercontinue wound care and antibiotic as per ID. Subjective Follow-up for multiple wounds, ambulatory dysfunction, MSSA bacteremia. Patient seen and examined. Sitting up in the chair, no acute distress. Patient reports feeling well, eager to be discharged to begin rehab. Wound VAC to be placed today to left ankle and left buttock. Patient denies chest pain or shortness of breath. Reports having a few episodes of diarrhea, last being yesterday. Since Lozano has been removed, urinating without difficulty. Review of Systems Review of Systems: ROS per HPI, all other systems reviewed and negative Physical Exam Constitutional: WD/WN, vitals as above no acute distress Sitting up in the chair Respiratory: normal respiratory effort, lungs clear to auscultation Cardiovascular: Rate/Rhythm: regular rate and regular rhythm Heart Sounds: + murmur (Grade 2/6, systolic) Vessels: normal peripheral pulses Extremities: no edema Gastrointestinal (Abdomen): Percussion/Palpation: abdomen soft; abdomen nontender Skin: Due to patient sitting up in the chair, left buttock wound not assessed. Dressing CDI to left lateral ankle. Neurologic: no focal motor deficits Psychiatric: A+Ox3, euthymic affect Results & Data Results & Data ([facility]) Vital Signs (Past 12 Hours) Vital Signs Temp Pulse Pulse Resp BP Pulse Ox O2 Del Method 04/26/22 14:50 36.5 C 70 18 114/70 95 Room Air 04/26/22 11:30 36.6 C 81 17 125/78 96 Room Air 04/26/22 07:57 36.3 C L 78 18 135/78 96 Room Air Laboratory Results Short CBC 04/26/22 Range/Units 06:48 WBC 6.01 (4.8-10.8) K/ul Hgb 11.9 L (12.0-16.0) g/dl Hct 35.7 (34.1-44.9) % Plt Count 271 (130-400) K/uL BMP 04/26/22 06:48 Sodium 138 Potassium 4.0 Chloride 103 Carbon Dioxide 30 BUN 19 Creatinine 0.53 L Glucose 148 H Calcium 9.2
--- NOTE | 2022-04-26 16:00 | Gastrointestinal Consultation ---
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 Will provide EGD tomorrow for screening for EV. 2. Discussed the pathophysiology and natural course of cirrhosis including likelihood of developing esophageal varices and other complications in the future. Explained that she will need to be seen in the outpatient setting every 6 months for liver imaging, management of diuretics, and possible consideration for liver transplant at some point. At this point, her meld score is low at 6. 3. Please keep NPO after midnight. Supervising Physician Co-Signing Physician Notes 61 y/o F with hx of obesity, DM2, , diastolic heart failure and newly diagnosed cirrhosis (has not yet established with hepatology or had work up though presume its PINA) who was admitted with multiple wounds ulcers s/p debridement of left buttocks wound and L ankle wound and MSSA bacteremia. Cardiology is planning on JILLIAN to evaluate for endocarditis but requesting EGD prior to evaluate for varices. No hx of EGD or colonoscopy. Physical Exam: general: pleasant female, sitting in chair Eyes: sclera anicteris Respiratory: no respiratory distress Cardiac: RRR Abdomen: soft, nontender, non-distended LE: 2+ LE edema plan: -will plan for EGD tomorrow AM to evaluate for any esophageal/gastric varices. -NPO at midnight -ensure hgb >7 and INR < 2 prior to endoscopy tomorrow -she will need outpatient hepatology follow up for new cirrhosis work up and ongoing management which includes abdominal imaging every 6 months for HCC screening. Most recent CT abd/pelvis reviewed from 04/04 without any liver lesions noted. -daily MELD labs Mariel Somers DO Gastroenterology and Hepatology I personally saw and evaluated the patient on 04/26. I agree with the plan and recommendations as stated by AIMEE Teran. History of Present Illness Reason for Consultation: R/ogastric varices to do JILLIAN Requesting Physician: Dr. Gotti Attending Physician: Narciso Gotti MD History of Present Illness Ms. Phyllis Huntley is a 61-year-old female patient of Dr. Gomes with a history of chronic diastolic CHF, , DMII, recently diagnosed Pina cirrhosis (has not yet established with GI for OP f/u) who was admitted in Feb for a fall w multiple skin injuires. She is being treated with IV antibiotics for bacteremia, cellulitis and skin ulcers. JILLIAN is indicated to decide on length of IV antibiotic treatment. Because of her cirrhosis, gastroenterology has been asked to complete EGD to rule out esophageal varices prior to JILLIAN. She denies any liver related symptoms such as yellow eyes yellow skin, itchiness, upper abdomen discomfort, excessive bleeding or bruising. Specifically denies any blood in her bowel movements or black tarry bowel movements. She has never previously undergone EGD or colonoscopy. She is not on any anticoagulants or antiplatelet drugs. Denies frequent NSAID use. She is receiving Lovenox every 24 hours here in the hospital. Allergies Allergy/AdvReac Type Severity Reaction Status Date / Time No Known Allergies Allergy Verified 04/19/22 10:23 Home Medications Medication Instructions Recorded Confirmed Type blood sugar diagnostic ([employer] #50 ea 04/14/22 04/19/22 Rx Ultra Test strips) blood-glucose meter ([employer] #1 ea 04/14/22 04/19/22 Rx Ultra2 Meter) daptomycin 500 mg intravenous 650 mg IV Q24H #34 ea 04/14/22 04/19/22 Rx solution furosemide 40 mg tablet 40 mg PO QAM #30 tabs 04/14/22 04/19/22 Rx lancets 33 gauge ([employer] Delica #100 ea 04/14/22 04/19/22 Rx Lancets) metformin 500 mg tablet,extended 1,000 mg PO BIDM #120 tabs 04/14/22 04/19/22 Rx release 24 hr metoprolol tartrate 25 mg tablet 25 mg PO BID #60 tabs 04/14/22 04/19/22 Rx spironolactone 25 mg tablet 25 mg PO DAILY #30 tabs 04/14/22 04/19/22 Rx Patient History Medical History Acute metabolic encephalopathy Ambulatory dysfunction Aortic stenosis FRIDA 1.1cm2 04/04/22 Chronic diastolic CHF (congestive heart failure) Cirrhosis Dilated cardiomyopathy Generalized weakness Mitral regurgitation Morbid obesity with BMI of 50.0-59.9, adult MSSA bacteremia Peripheral arterial disease Pressure ulcers of skin of multiple topographic sites Type 2 diabetes mellitus Urinary retention Wound of left buttock Surgical History No significant past surgical history Family History Other Family history non-contributory Social History Smoking Status: Never smoker Second Hand Exposure: No; Hx Alcohol Use: No Hx Substance Use: No Preferred Language: Armenian Communication Ability: Effective R And D Lab Technician Required: No Beliefs That Will Affect Care: None marital status: Current Living Situation: Spouse Current Living Situation Comment: one story set up, 1 step to enter How many Children do You have: 1 Other Information That Helps Us Care for You: No Feels Safe at Home: Yes Safety Concerns: Feels Safe At This Time Assistive Devices: None Review of Systems Review of Systems: ROS: Gen: + weakness, no fevers, + weight loss w effort Eyes: No eye yellowness or redness, or pain, no recent vision changes Resp: No SOB, no cough Cardio: No palpitations/irregular beats, no chest pain GI: No abdominal pain, no nausea/vomiting : Denies pain on urination Skin: No jaundice, itching or new rashes A total of 12 systems reviewed, all others (-) Physical Exam Constitutional: + ill appearing (chronically), + obese and + edematous (lower legs) Eyes: PERRL, conjunctivae normal, anicteric sclerae ENMT: external ear and nose normal, oropharynx normal poor dentition Neck: trachea midline, no thyromegaly Respiratory: normal respiratory effort, lungs clear to auscultation Cardiovascular: RRR, no murmur, no edema Gastrointestinal (Abdomen): normal bowel sounds, soft, nontender, no hepatosplenomegaly Skin: skin ulcerations on lower legs. Buttocks skin ulceration not visualized as pt sitting in a chair, positioned to avoid pressure on the sore. Wound vacs in place to left lower leg in and buttocks Neurologic: PERRL, EOMI, accommodation nl, no face palsy, no dysarthria Psychiatric: A+Ox3, euthymic affect Lymphatic: no cervical or axillary lymphadenopathy Results & Data ([facility]) Vital Signs (Past 12 Hours) Vital Signs Temp Pulse Pulse Resp BP Pulse Ox O2 Del Method 04/26/22 14:50 36.5 C 70 18 114/70 95 Room Air 04/26/22 11:30 36.6 C 81 17 125/78 96 Room Air 04/26/22 07:57 36.3 C L 78 18 135/78 96 Room Air Laboratory Results WBC 6, Hb 11.9, HCT 35.7, PLT S271, PT 10, INR 1, NA 138, K4.0, CL 103, CO2 30, BUN 19, CR 0.53, glucose 148 Diagnostic Findings CTAP w IV contrast 04/04/22: 1. Exam moderately compromised by artifact. 2. No bowel obstruction. No bowel wall thickening. 3. Anasarca. Trace ascites. No fluid collection to suggest abscess. 4. Hepatomegaly. Suspected nodularity of the liver surface raises the possibility of cirrhosis. 5. Cardiomegaly. Small right and trace left pleural effusion with probable pul monary edema. A superimposed infectious process cannot be excluded within the lungs. Liver US 04/04/22: . Cirrhotic and enlarged liver. 2. Normal gallbladder. No gallstones.
--- NOTE | 2022-04-26 16:20 | Surgery Progress Note ---
Date of Service April 26, 2022 Assessment & Plan (1) Pressure ulcers of skin of multiple topographic sites: Plan: Wound vac placed today continue wound vac settings continue wound care continue antibiotics and medical management our services signing off please call with questions/concerns Admission and Anticipated Discharge Date Admission Date: April 19, 2022 Subjective wound vac placed today no buttock pain no n,v Results & Data ([facility]) Vital Signs (Past 12 Hours) Vital Signs Temp Pulse Pulse Resp BP Pulse Ox O2 Del Method 04/26/22 14:50 36.5 C 70 18 114/70 95 Room Air 04/26/22 11:30 36.6 C 81 17 125/78 96 Room Air 04/26/22 07:57 36.3 C L 78 18 135/78 96 Room Air Laboratory Results 04/26/22 04/26/22 04/26/22 Range/Units 12:08 08:07 06:48 WBC (4.8-10.8) K/ul RBC (3.93-5.22) M/uL Hgb (12.0-16.0) g/dl Hct (34.1-44.9) % MCV (80.0-100.0) fL MCH (25.0-34.0) pg MCHC (32.0-36.0) g/dL RDW Std Deviation (36.4-46.3) fL RDW Coeff of Chintan (11.5-14.5) % Plt Count (130-400) K/uL MPV (9.4-12.3) fL Immature Gran % (Auto) % Neut % (Auto) % Lymph % (Auto) % [place] % (Auto) % Eos % (Auto) % Baso % (Auto) % Neut # (Auto) (1.4-6.5) K/uL Lymph # (Auto) (1.2-3.4) K/uL [place] # (Auto) (0.24-0.82) K/uL Eos # (Auto) (0-0.50) K/uL Baso # (Auto) (0-0.2) K/uL Immature Gran # (Auto) (0.00-0.02) K/uL ESR (0-30) mm/hr Sodium 138 (136-145) mmol/L Potassium 4.0 (3.5-5.1) mmol/L Chloride 103 (98-107) mmol/L Carbon Dioxide 30 (21-32) mmol/L Anion Gap 5 (3-11) BUN 19 (6-23) mg/dl Creatinine 0.53 L (0.6-1.2) mg/dl Est Cr Clr Drug Dosing 141.5 ml/min Est GFR ( Amer) 118.8 ml/min Est GFR (Non-Af Amer) 102.5 ml/min BUN/Creatinine Ratio 35.8 H (10-20) Glucose 148 H (70-99(Fasting)) mg/dl POC Glucose 262 H 148 H (70-99) mg/dl Calcium 9.2 (8.5-10.1) mg/dl C-Reactive Protein 1.67 H (0-0.5) mg/dl 04/26/22 04/26/22 04/25/22 Range/Units 06:48 06:48 20:25 WBC 6.01 (4.8-10.8) K/ul RBC 3.86 L (3.93-5.22) M/uL Hgb 11.9 L (12.0-16.0) g/dl Hct 35.7 (34.1-44.9) % MCV 92.5 (80.0-100.0) fL MCH 30.8 (25.0-34.0) pg MCHC 33.3 (32.0-36.0) g/dL RDW Std Deviation 50.4 H (36.4-46.3) fL RDW Coeff of Chintan 14.9 H (11.5-14.5) % Plt Count 271 (130-400) K/uL MPV 9.5 (9.4-12.3) fL Immature Gran % (Auto) 0.5 % Neut % (Auto) 52.4 % Lymph % (Auto) 35.4 % [place] % (Auto) 5.7 % Eos % (Auto) 4.8 % Baso % (Auto) 1.2 % Neut # (Auto) 3.15 (1.4-6.5) K/uL Lymph # (Auto) 2.13 (1.2-3.4) K/uL [place] # (Auto) 0.34 (0.24-0.82) K/uL Eos # (Auto) 0.29 (0-0.50) K/uL Baso # (Auto) 0.07 (0-0.2) K/uL Immature Gran # (Auto) 0.03 H (0.00-0.02) K/uL ESR 102 H (0-30) mm/hr Sodium (136-145) mmol/L Potassium (3.5-5.1) mmol/L Chloride (98-107) mmol/L Carbon Dioxide (21-32) mmol/L Anion Gap (3-11) BUN (6-23) mg/dl Creatinine (0.6-1.2) mg/dl Est Cr Clr Drug Dosing ml/min Est GFR ( Amer) ml/min Est GFR (Non-Af Amer) ml/min BUN/Creatinine Ratio (10-20) Glucose (70-99(Fasting)) mg/dl POC Glucose 148 H (70-99) mg/dl Calcium (8.5-10.1) mg/dl C-Reactive Protein (0-0.5) mg/dl 04/25/22 Range/Units 17:12 WBC (4.8-10.8) K/ul RBC (3.93-5.22) M/uL Hgb (12.0-16.0) g/dl Hct (34.1-44.9) % MCV (80.0-100.0) fL MCH (25.0-34.0) pg MCHC (32.0-36.0) g/dL RDW Std Deviation (36.4-46.3) fL RDW Coeff of Chintan (11.5-14.5) % Plt Count (130-400) K/uL MPV (9.4-12.3) fL Immature Gran % (Auto) % Neut % (Auto) % Lymph % (Auto) % [place] % (Auto) % Eos % (Auto) % Baso % (Auto) % Neut # (Auto) (1.4-6.5) K/uL Lymph # (Auto) (1.2-3.4) K/uL [place] # (Auto) (0.24-0.82) K/uL Eos # (Auto) (0-0.50) K/uL Baso # (Auto) (0-0.2) K/uL Immature Gran # (Auto) (0.00-0.02) K/uL ESR (0-30) mm/hr Sodium (136-145) mmol/L Potassium (3.5-5.1) mmol/L Chloride (98-107) mmol/L Carbon Dioxide (21-32) mmol/L Anion Gap (3-11) BUN (6-23) mg/dl Creatinine (0.6-1.2) mg/dl Est Cr Clr Drug Dosing ml/min Est GFR ( Amer) ml/min Est GFR (Non-Af Amer) ml/min BUN/Creatinine Ratio (10-20) Glucose (70-99(Fasting)) mg/dl POC Glucose 183 H (70-99) mg/dl Calcium (8.5-10.1) mg/dl C-Reactive Protein (0-0.5) mg/dl
[2022-04-26] MEDS: MELATONIN 3 MG TAB PO SCH (20:48)
[2022-04-26] MEDS: ACETAMINOPHEN 325 MG TAB PO PRN (20:51)
[2022-04-27] MEDS ORDERED: Nursing to Pharmacy Communication SCH ×2 (01:15→10:30)
[2022-04-27] MEDS: CEFEPIME 2,000 MG in SYRINGE 0 ML IV SCH ×3 (05:12→21:05)
[2022-04-27] MEDS ORDERED: INSULIN ASPART PER UNIT SC SCH (06:00)
[2022-04-27] MEDS: LANTUS PER UNIT CHARGE SQ SCH ×2 (07:11→21:05)
[2022-04-27] MEDS: ADVANCED PROBIOTIC 1250 MG CAPSULE PO SCH (07:47)
[2022-04-27] MEDS: metroNIDAZOLE 500 MG TAB PO SCH ×3 (07:47→19:45)
[2022-04-27] MEDS: METOPROLOL TARTRATE 25 MG TAB PO SCH ×2 (07:47→19:45)
[2022-04-27] MEDS: POTASSIUM CHLORIDE CRTAB 20 MEQ TABCR PO SCH (07:47)
[2022-04-27] MEDS: FUROSEMIDE 40 MG TAB PO SCH (07:48)
[2022-04-27] MEDS: SPIRONOLACTONE 100 MG TAB PO SCH (07:48)
[2022-04-27] MEDS: NYSTATIN POWDER 15GM BTL EXT SCH ×2 (07:48→19:46)
--- NOTE | 2022-04-27 08:06 | Anesthesiology Consultation ---
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 Consults Requested none History Surgery Operation Date: 04/21/22 12:30 Proposed Procedures p Left Buttock Wound Debridement - Andi Enriquez MD Operation Date: 04/27/22 17:15 Proposed Procedures p Esophagogastroduodenoscopy Yonis - Mariel Somers, Height/Weight Height: 5 ft 3 in Weight: 122.47 kg Allergies Allergy/AdvReac Type Severity Reaction Status Date / Time No Known Allergies Allergy Verified 04/19/22 10:23 Medications Home Medications Medication Instructions Recorded Confirmed Last Taken blood sugar diagnostic ([employer]Touch #50 ea 04/14/22 04/19/22 Unknown Ultra Test strips) blood-glucose meter ([employer]Touch #1 ea 04/14/22 04/19/22 Unknown Ultra2 Meter) daptomycin 500 mg intravenous 650 mg IV Q24H #34 ea 04/14/22 04/19/22 Unknown solution furosemide 40 mg tablet 40 mg PO QAM #30 tabs 04/14/22 04/19/22 Unknown lancets 33 gauge ([employer]Touch Delica #100 ea 04/14/22 04/19/22 Unknown Lancets) metformin 500 mg tablet,extended 1,000 mg PO BIDM #120 tabs 04/14/22 04/19/22 Unknown release 24 hr metoprolol tartrate 25 mg tablet 25 mg PO BID #60 tabs 04/14/22 04/19/22 Unknown spironolactone 25 mg tablet 25 mg PO DAILY #30 tabs 04/14/22 04/19/22 Unknown Active Medications Generic Name Dose Route Start Last Admin Trade Name Freq PRN Reason Stop Dose Admin Acetaminophen 650 mg 04/19/22 14:59 04/26/22 20:51 Acetaminophen 325 Mg Tab PO 05/19/22 14:58 650 mg Q4H PRN Administration pain/fever Enoxaparin Sodium 40 mg 04/19/22 15:15 04/26/22 14:41 Enoxaparin Inj 40 Mg/0.4 Ml Syr SQ 05/19/22 15:14 40 mg Q24H ERAN Administration Furosemide 40 mg 04/20/22 09:00 04/27/22 07:48 Furosemide 40 Mg Tab PO 05/20/22 08:59 40 mg QAM ERAN Administration Heparin Sodium (Beef Lung) 5 ml 04/20/22 01:28 04/27/22 05:12 Heparin 10 Unit/Ml 5 Ml Flush FLUSH 05/20/22 01:27 5 ml PRN PRN Administration Flush Cefepime HCl 2,000 mg/ Syringe 20 mls @ 5 mls/min 04/23/22 13:30 04/27/22 05:12 IV 05/07/22 13:29 5 mls/min Q8H ERAN Administration Protocol Insulin Aspart 0 units 04/27/22 06:00 04/27/22 06:20 Insulin Aspart Per Unit SC 05/27/22 05:59 Not Given Q6 ERAN Insulin Glargine 4 units 04/26/22 21:00 04/27/22 07:11 Lantus Per Unit Charge SQ 05/26/22 20:59 Not Given BID ERAN Lactobacillus Acidophilus 2 cap 04/20/22 17:45 04/27/22 07:47 Advanced Probiotic 1250 Mg Capsule PO 05/20/22 17:44 2 cap DAILY ERAN Administration Loperamide HCl 2 mg 04/24/22 09:44 04/25/22 09:53 Loperamide Hcl 2 Mg Cap PO 05/24/22 09:44 2 mg Q6H PRN Administration Diarrhea Melatonin 3 mg 04/25/22 21:00 04/26/22 20:48 Melatonin 3 Mg Tab PO 05/25/22 20:59 3 mg HS ERAN Administration Metoprolol Tartrate 25 mg 04/19/22 21:00 04/27/22 07:47 Metoprolol Tartrate 25 Mg Tab PO 05/19/22 20:59 25 mg BID EARN Administration Metronidazole 500 mg 04/23/22 14:15 04/27/22 07:47 Metronidazole 500 Mg Tab PO 04/30/22 14:14 500 mg TID ERAN Administration Nystatin 1 appln 04/21/22 21:00 04/27/22 07:48 Nystatin Powder 15gm Btl EXT 05/21/22 20:59 1 appln BID ERAN Administration Potassium Chloride 40 meq 04/25/22 09:00 04/27/22 07:47 Potassium Chloride Crtab 20 Meq Tabcr PO 05/25/22 08:59 40 meq QAM ERAN Administration Spironolactone 100 mg 04/24/22 09:00 04/27/22 07:48 Spironolactone 100 Mg Tab PO 05/24/22 08:59 100 mg DAILY ERAN Administration NPO Date Last Intake of Fluids: 04/20/22 Time Last Intake of Fluids: 23:55 Date Last Intake of Solids: 04/20/22 Time Last Intake of Solids: 23:55 Past Medical History Medical History Acute metabolic encephalopathy Ambulatory dysfunction Aortic stenosis FRIDA 1.1cm2 04/04/22 Chronic diastolic CHF (congestive heart failure) Cirrhosis Dilated cardiomyopathy Generalized weakness Mitral regurgitation Morbid obesity with BMI of 50.0-59.9, adult MSSA bacteremia Peripheral arterial disease Pressure ulcers of skin of multiple topographic sites Type 2 diabetes mellitus Urinary retention Wound of left buttock Past Family History Family History Other Family history non-contributory Past Surgical History Surgical History No significant past surgical history Social History Smoking Status: Never smoker Hx Alcohol Use: No Hx Substance Use: No Physical Exam Vital Signs Last Vital Signs Temp 36.4 C L 04/27/22 07:39 Pulse 95 H 04/27/22 07:39 Resp 18 04/27/22 07:39 BP 103/66 04/27/22 07:39 Pulse Ox 94 04/27/22 07:39 O2 Del Method 04/27/22 07:39 O2 Flow Rate 2 04/24/22 14:52 Testing Laboratory Results 04/26/22 06:48 04/26/22 06:48 Urine Color Yellow 04/19/22 18:50 Urine Appearance Clear (Clear) 04/19/22 18:50 Urine pH 5.5 (4.5-7.5) 04/19/22 18:50 Ur Specific [place] 1.014 (1.000-1.030) 04/19/22 18:50 Urine Protein Trace (Negative) H 04/19/22 18:50 Urine Glucose (UA) Negative (Negative) 04/19/22 18:50 Urine Ketones Negative (Negative) 04/19/22 18:50 Urine Nitrite Negative (Negative) 04/19/22 18:50 Ur Leukocyte Esterase Negative (Negative) 04/19/22 18:50 Urine WBC (Auto) 1-5 /hpf (0-5) 04/19/22 18:50 Urine RBC (Auto) 0-4 /hpf (0-4) 04/19/22 18:50 U Hyaline Cast (Auto) 5-10 /lpf (0-5) H 04/19/22 18:50 U Epithel Cells (Auto) 10-20 /lpf (0-5) H 04/19/22 18:50 Urine Bacteria (Auto) Negative (Negative) 04/19/22 18:50 04/21/22 Unknown Gram Stain - Final Buttock,Left Aerobic and Anaerobic Culture - Final Enterobacter cloacae Bacteroides fragilis 04/20/22 16:12 Aerobic Blood Culture - Final Blood No growth in Aerobic bottle after 5 days. Anaerobic Blood Culture - Final No growth in Anaerobic bottle after 5 days. 04/20/22 16:01 Aerobic Blood Culture - Final Blood No growth in Aerobic bottle after 5 days. Anaerobic Blood Culture - Final No growth in Anaerobic bottle after 5 days. 04/19/22 18:50 Urine Culture - Final Urine,Straight Cath Yeast not Rola albicans/dub 04/19/22 15:45 Gram Stain - Final Ankle,Left Wound Culture - Final Yeast not Rola albicans/dub 04/19/22 15:45 Gram Stain - Final Buttock,Left Wound Culture - Final Low counts mixed probable gastrointestinal microbiota. No further identifications or sensitivities to follow. 04/27/22 04/26/22 06:09 20:34 POC Glucose 130 H 124 H Electrocardiogram Date: 04/19/22 Test Reason : Blood Pressure : / mmHG Vent. Rate : 102 BPM Atrial Rate : 102 BPM P-R Int : 182 ms QRS Dur : 080 ms QT Int : 342 ms P-R-T Axes : 054 -42 064 degrees QTc Int : 445 ms Sinus tachycardia with occasional Premature ventricular complexes Left axis deviation Inferior infarct (cited on or before 04-APR-2022) Anterior infarct (cited on or before 04-APR-2022) Abnormal ECG When compared with ECG of 04-APR-2022 08:22, No significant change Confirmed by Cullen Marquez ([id number]) on 04/21/2022 9:12:11 PM Chest X-Ray Date: 04/20/22 XR chest 1V portable CLINICAL HISTORY: hypoxia COMPARISON STUDY: Chest CT April 04, 2022. Chest radiograph April 19, 2022. FINDINGS: Right PICC is in place. No pneumothorax or pleural effusion is present. Cardiomegaly is unchanged. Patient is rotated. Interstitial thickening is again noted. Linear bilateral opacities persist. There is no lobar consolidation. IMPRESSION: 1. Cardiomegaly. Mild interstitial thickening. This may reflect pulmonary vascular congestion without overt pulmonary edema. 2. Linear bilateral opacities which favor atelectasis. An infectious process could appear similar although is considered less likely. Echocardiogram Date: 04/04/22 EF: 50-55% LV Function: normal (Borderline global hypokinesis) Valvular Disease: + (moderate to severe) and + MR (mild) Right ventricle moderately dilated
[2022-04-27 08:29] LABS: Basophils # (auto) 0.07 K/uL (0-0.2); Eosinophils # (auto) 0.38 K/uL (0-0.50); Eosinophils % (auto) 5.2 %; Hematocrit (blood only) 34.1 % (34.1-44.9); Hemoglobin 11.4 g/dl (12.0-16.0); Immature Granulocytes # (auto) 0.03 K/uL (0.00-0.02); Immature Granulocytes % (auto) 0.4 %; Lymphocytes # (auto) 2.93 K/uL (1.2-3.4); Lymphocytes % (auto) 39.9 %; Mean Corpuscular Hemoglobin 30.7 pg (25.0-34.0); Mean Corpuscular Hgb Conc 33.4 g/dL (32.0-36.0); Mean Corpuscular Volume 91.9 fL (80.0-100.0); Mean Platelet Volume 9.5 fL (9.4-12.3); Monocytes # (auto) 0.37 K/uL (0.24-0.82); Neutrophils # (auto) 3.56 K/uL (1.4-6.5); Neutrophils % (auto) 48.5 %; Platelet Count 265 K/uL (130-400); RDW Coefficient of Variation 15.1 % (11.5-14.5); RDW Standard Deviation 50.4 fL (36.4-46.3); Red Blood Count 3.71 M/uL (3.93-5.22); White Blood Count 7.34 K/ul (4.8-10.8)
[2022-04-27 08:39] LABS: INR 1.1 (0.9-1.1); Prothrombin Time 11.8 Seconds (9.0-12.0)
[2022-04-27] MEDS ORDERED: fentaNYL citrate 100 MCG/2 ML VIAL ONE (08:41)
--- NOTE | 2022-04-27 08:42 | History & Physical Report ---
Date of Service April 27, 2022 Assessment & Plan (1) Cirrhosis: (2) MSSA bacteremia: Plan Plan for EGD today to rule out varices prior to JILLIAN. Admission and Anticipated Discharge Date Admission Date: April 19, 2022 History of Present Illness Chief Complaint: rule out varices prior to JILLIAN Primary Care Provider: Christopher Castro MD 61 y/o F with newly diagnosed compensated cirrhosis (likely GALICIA but needs full work up still), multiple sacral and LE wounds, MSSA bacteremia. Found to have cirrhosis on imaging last month. Cardiology planning on JILLIAN to assess for endocarditis but would like EGD first to rule out varices. Allergies Allergy/AdvReac Type Severity Reaction Status Date / Time No Known Allergies Allergy Verified 04/19/22 10:23 Home Medications Medication Instructions Recorded Confirmed Type blood sugar diagnostic ([employer] #50 ea 04/14/22 04/19/22 Rx Ultra Test strips) blood-glucose meter ([employer]Touch #1 ea 04/14/22 04/19/22 Rx Ultra2 Meter) daptomycin 500 mg intravenous 650 mg IV Q24H #34 ea 04/14/22 04/19/22 Rx solution furosemide 40 mg tablet 40 mg PO QAM #30 tabs 04/14/22 04/19/22 Rx lancets 33 gauge ([employer] Delica #100 ea 04/14/22 04/19/22 Rx Lancets) metformin 500 mg tablet,extended 1,000 mg PO BIDM #120 tabs 04/14/22 04/19/22 Rx release 24 hr metoprolol tartrate 25 mg tablet 25 mg PO BID #60 tabs 04/14/22 04/19/22 Rx spironolactone 25 mg tablet 25 mg PO DAILY #30 tabs 04/14/22 04/19/22 Rx Past Med/Surg History Medical History Acute metabolic encephalopathy Ambulatory dysfunction Aortic stenosis FRIDA 1.1cm2 04/04/22 Chronic diastolic CHF (congestive heart failure) Cirrhosis Dilated cardiomyopathy Generalized weakness Mitral regurgitation Morbid obesity with BMI of 50.0-59.9, adult MSSA bacteremia Peripheral arterial disease Pressure ulcers of skin of multiple topographic sites Type 2 diabetes mellitus Urinary retention Wound of left buttock Surgical History No significant past surgical history Family History Other Family history non-contributory Social History Smoking Status: Never smoker Second Hand Exposure: No; Hx Alcohol Use: No Hx Substance Use: No Preferred Language: Pashto Communication Ability: Effective Director Pharmaceutical Required: No Beliefs That Will Affect Care: None marital status: Current Living Situation: Spouse Current Living Situation Comment: one story set up, 1 step to enter How many Children do You have: 1 Other Information That Helps Us Care for You: No Feels Safe at Home: Yes Safety Concerns: Feels Safe At This Time Assistive Devices: None Review of Systems All systems reviewed & are unremarkable except as noted in HPI & below Physical Exam Constitutional: WD/WN, vitals as above Eyes: PERRL, conjunctivae normal, anicteric sclerae Respiratory: normal respiratory effort, lungs clear to auscultation Cardiovascular: RRR, no murmur, no edema Gastrointestinal (Abdomen): normal bowel sounds, soft, nontender, no hepatosplenomegaly Psychiatric: A+Ox3, euthymic affect ASA Classification ASA ASA4 Results & Data ([facility]) Vital Signs (Past 12 Hours) Vital Signs Temp Pulse Pulse Resp BP Pulse Ox O2 Del Method 04/27/22 08:33 36.3 C L 94 H 20 133/76 95 Room Air 04/27/22 07:39 36.4 C L 95 H 18 103/66 94 Room Air 04/26/22 20:45 36.5 C 80 16 118/71 95 Room Air Code Status & VTE Plan VTE Prophylaxis Plan VTE Prophylaxis will be ordered: Yes
[2022-04-27 08:54] LABS: BUN Creatinine Ratio 33.9 (10-20); Creatinine Clr Calc Pharmacy 131.3 ml/min; Est GFR (African American) 116.6 ml/min; Est GFR (Non-African American) 100.6 ml/min
--- NOTE | 2022-04-27 08:57 | Communication Note ---
Date of Service: April 27, 2022 Pt has a very loose tooth, number 5, I think. She only has 2 teeth left. We discussed danger of aspirating tooth should it get bumped out during EGD. She said it would be okay if I attempt to remove tooth after sedation.
--- NOTE | 2022-04-27 09:13 | Communication Note ---
Date of Service: April 27, 2022 Tooth removed without difficulty.
[2022-04-27] MEDS ORDERED: PHENYLEPHRINE 100MCG/ML 5ML SYR ONE (09:15)
[2022-04-27] MEDS ORDERED: PROPOFOL IV EMULSION 10 MG/ML 20 ML VIAL IV ONE (09:15)
[2022-04-27] MEDS ORDERED: LIDOCAINE 2% MPF LOCAL 5 ML VIAL INFIL ONE (09:15)
--- NOTE | 2022-04-27 09:23 | GI REPORT ---
Patient Name: Phyllis Mccollum Procedure Date: 04/27/2022 8:55 AM Date of : 1960 Admit Type: Inpatient Age: 61 Gender: Female Attending MD: Mariel Somers DO, Procedure: Upper GI endoscopy Providers: Mariel Somers DO Referring MD: FELICITY CULP Indications: Cirrhosis with suspected esophageal varices Patient Profile: This is a 61 year old female. Refer to note in patient chart for documentation of history and physical. Medicines: Monitored Anesthesia Care Complications: No immediate complications. Estimated Blood Loss: Estimated blood loss: none. Procedure: Pre-Anesthesia Assessment: - Prior to the procedure, a History and Physical was performed, and patient medications and allergies were reviewed. The risks and benefits of the procedure and the sedation options and risks were discussed with the patient. All questions were answered and informed consent was obtained. Patient identification and proposed procedure were verified by the physician, the nurse and the administrative intern in the procedure room. Mental Status Examination: alert and oriented. Airway Examination: Mallampati Class II (the uvula but not tonsillar pillars visualized). Respiratory Examination: clear to auscultation. CV Examination: RRR, no murmurs, no S3 or S4. Prophylactic Antibiotics: The patient does not require prophylactic antibiotics. Prior Anticoagulants: The patient has taken no anticoagulant or antiplatelet agents. ASA Grade Assessment: III - A patient with severe systemic disease. After reviewing the risks and benefits, the patient was deemed in satisfactory condition to undergo the procedure. The anesthesia plan was to use monitored anesthesia care (MAC). Immediately prior to administration of medications, the patient was re-assessed for adequacy to receive sedatives. The physical status of the patient was re-assessed after the procedure. After obtaining informed consent, the endoscope was passed under direct vision. Throughout the procedure, the patient's blood pressure, pulse, and oxygen saturations were monitored continuously. The Endoscope was introduced through the mouth, and advanced to the second part of duodenum. The upper GI endoscopy was accomplished without difficulty. The patient tolerated the procedure well. Findings: The Z-line was regular and was found 40 cm from the incisors. Grade I, small (< 5 mm) varices were found in the lower third of the esophagus. The exam of the esophagus was otherwise normal. The entire examined stomach was normal. There is no endoscopic evidence of varices in the entire examined stomach. The duodenal bulb and second portion of the duodenum were normal. Impression: - Z-line regular, 40 cm from the incisors. - Grade I and small (< 5 mm) esophageal varices. - Normal stomach. - Normal duodenal bulb and second portion of the duodenum. - No specimens collected. Recommendation: - [facility]. - Resume previous diet. - Continue present medications. - Repeat EGD in 1 year for surveillance - Ok to proceed with JILLIAN as varices are small on exam Mariel Somers DO 04/27/2022 9:23:10 AM Note Initiated On: 04/27/2022 8:55 AM Number of Addenda: 0 I attest to the content of the Intraoperative Record and orders documented therein, exceptions below {[id number]}
--- NOTE | 2022-04-27 10:46 | Anesthesiology Progress Note ---
Date of Service April 27, 2022 Anesthesia Post Procedure Vital Signs Vital Signs: Temp Pulse Pulse Resp BP Pulse Ox O2 Del Method 04/27/22 10:43 36.3 C L 72 18 117/66 97 Room Air 04/27/22 10:15 36.4 C L 76 18 115/62 96 Room Air 04/27/22 09:53 74 74 16 131/72 92 Room Air 04/27/22 09:38 75 16 105/64 93 Room Air 04/27/22 09:23 68 68 16 123/74 93 Room Air 04/27/22 07:00 Room Air 04/27/22 08:33 36.3 C L 94 H 20 133/76 95 Room Air 04/27/22 07:39 36.4 C L 95 H 18 103/66 94 Room Air 04/26/22 20:45 36.5 C 80 16 118/71 95 Room Air 04/26/22 14:50 36.5 C 70 18 114/70 95 Room Air 04/26/22 11:30 36.6 C 81 17 125/78 96 Room Air Pain Intensity Generalized: Pain Intensity: 6 Left Buttock: Pain Intensity: 2 Transfer of Care Handoff Completed per policy Notes Mental Status: alert / awake / arousable and participated in evaluation Patient Amnestic to Procedure: Yes Nausea / Vomiting: adequately controlled Pain: adequately controlled Airway Patency, RR, SpO2: stable & adequate BP & HR: stable & adequate Hydration State: stable & adequate Anesthetic Complications: no major complications apparent and Pt Satisfied with anesthetic care
[2022-04-27] MEDS: LOPERAMIDE HCL 2 MG CAP PO PRN (10:53)
[2022-04-27] MEDS: INSULIN ASPART PER UNIT SC SCH ×3 (13:08→21:05)
[2022-04-27] MEDS: ENOXAPARIN INJ 40 MG/0.4 ML SYR SQ SCH (13:51)
--- NOTE | 2022-04-27 16:13 | Hospitalist Progress Note ---
Date of Service April 27, 2022 Assessment & Plan (1) Pressure ulcers of skin of multiple topographic sites: Plan: Multiple wounds scattered over body - please refer to wound care nurse documentation for full details and photos 04/20/2022 - 5cm x 5cm wound left buttock - large amount of purulent drainage expressed when rolling patient in bed. IV cefepime added to IV daptomycin patient was previously on for MSSA bacteremia. CT obtained that did not show evidence of deep abscess. General surgery consulted for wound debridement; patient underwent debridement in the OR on 04/21. 3cm x 3cm wound left lateral ankle over the malleolus - sloughing tissue pre sent. MRI ordered to evaluate for possible osteomyelitis however patient declined study. Ortho consulted, bedside debridement preformed 04/20. Vascular consult placed by ortho. BLE arterial duplex demonstrates mild diffuse disease BLE. No indications for for vascular surgery intervention. Intra-Op left buttock wound debridement culture shows Enterobacter cloacae ID following. Antibiotics changed to IV cefepime to cover for MSSA and Enterobacter cloacae in wound culture. Flagyl for anaerobic coverage. On discharge to Rehab: -DC Cefepime and Flagyl -Start Cipro 750mg po BID with End of therapy 05/05/22 -Start Cefazolin 2G IV TID with 6 week course through 05/17/22 -Weekly CBC with diff and CMP to patients primary care physician. Wound care following. Wound VAC in place to left lateral ankle and left buttock wounds. Waffle boots ordered for ankle offloading. (2) MSSA bacteremia: Plan: Diagnosed during previous admission, currently on IV cefepime. Patient declined JILLIAN to evaluate for endocarditis during previous admission however patient is now agreeable. Patient underwent EGD today to evaluate for varices prior to JILLIAN. EGD shows grade 1, small esophageal varices, okay to proceed with JILLIAN. Discussed with cardiology, planning on JILLIAN tomorrow. If no signs of vegetation on JILLIAN, patient likely has completed adequate therapy for MSSA bacteremia. Will need to update ID re: JILLIAN results. Will complete 6 weeks of therapy on 05/17 Obtain weekly CBC, CMP and ESR Follow-up with ID Dr. Ellis Diarrhea Negative C. difficile on 04/23 Seems to be improving Urinary retention Resolved. TOV successful on 04/24. Hypoxia Resolved Intermittent hypoxia noted, patient briefly required 1-2L Continue on Lasix; spironolactone increased to 100 mg once daily. (3) Generalized weakness: (4) Ambulatory dysfunction: Plan: Patient presenting from home with reports of generalized weakness, ambulatory dysfunction, frequent falls. Recently admitted to [facility] 04/04 through 04/14 after not receiving care for many years and was found to have acute diastolic CHF, aortic stenosis, multiple lower extremity wounds, imaging findings suggestive of cirrhosis, and MSSA bacteremia. PT/OT, case management to assist with placement (5) Type 2 diabetes mellitus: Plan: Hgb A1c 10.5 04/04/2022 Newly diagnosed during previous admission, discharged on metformin Utilize Lantus and NovoLog per protocol while hospitalized (6) Aortic stenosis: (7) Chronic diastolic CHF (congestive heart failure): Plan: Appears euvolemic, continue furosemide and spironolactone Patient to establish with [facility] cardiology (8) Cirrhosis: Plan: Appears compensated Imaging during previous admission suggestive of cirrhosis, no prior history of EGD today shows small, grade 1 esophageal varices Patient to [facility] as an outpatient (9) DVT prophylaxis: Plan: SQ Lovenox Dispositionpatient was discharged home last admission despite being suggested to go to rehab. Patient would need extensive wound care and IV antibiotic. Case management on board. Antibiotic recommendations received from ID. JILLIAN planned for tomorrow. Wound vacs in place. Expect DC within 1 to 2 days. Admission and Anticipated Discharge Date Admission Date: April 19, 2022 Supervising Physician Co-Signing Physician Notes Pt was seen and examined. Agreed with Lili YU exam. Continue wound vac. ID consulted recommened Antibiotics changed to IV cefepime to cover for MSSA and Enterobacter cloacae in wound culture. Flagyl for anaerobic coverage. On discharge to Rehab: -DC Cefepime and Flagyl -Start Cipro 750mg po BID with End of therapy 05/05/22 -Start Cefazolin 2G IV TID with 6 week course through 05/17/22 -Weekly CBC with diff and CMP to patients primary care physician. Continue wound care daily. MD Hayden Subjective Follow-up for multiple wounds, ambulatory dysfunction, MSSA bacteremia. Patient seen and examined. Sitting up in the chair, no acute distress, recently returned from EGD. Patient reports feeling well, offers no complaints. Wound VAC to left ankle and left buttock placed yesterday. No chest pain or shortness of breath. Patient reports episodic diarrhea continues, 1 episode yesterday and 1 this morning. Review of Systems Review of Systems: ROS per HPI, all other systems reviewed and negative Physical Exam Physical Exam: General- No acute distress Head- atraumatic Eyes- PERRL, EOMI, ENT- oropharynx clear Neck- supple, no JVD Lungs- clear to auscultation Heart- regular rhythm; +murmur Abdomen- normal bowel sounds, soft, nontender Extremities- no calf tenderness, wound vacs in place to left ankle and left buttock Neuro- alert, oriented x 3; PERRL, EOMI; no facial palsy; no dysarthria Skin- warm & dry Constitutional: WD/WN, vitals as above + obese; no acute distress Respiratory: normal respiratory effort, lungs clear to auscultation Cardiovascular: Rate/Rhythm: regular rate and regular rhythm Heart Sounds: + murmur (Grade 2/6, systolic) Vessels: normal peripheral pulses Gastrointestinal (Abdomen): Percussion/Palpation: abdomen soft; abdomen nontender Skin: Wound vacs in place to left ankle and left buttock Neurologic: no focal motor deficits Psychiatric: A+Ox3, euthymic affect Results & Data Results & Data ([facility]) Vital Signs (Past 12 Hours) Vital Signs Temp Pulse Pulse Resp BP Pulse Ox O2 Del Method 04/27/22 13:41 36.8 C 87 18 126/64 94 Room Air 04/27/22 12:44 36.8 C 79 18 107/66 96 Room Air 04/27/22 11:29 36.6 C 77 18 108/65 96 Room Air 04/27/22 10:43 36.3 C L 72 18 117/66 97 Room Air 04/27/22 10:15 36.4 C L 76 18 115/62 96 Room Air 04/27/22 09:53 74 74 16 131/72 92 Room Air 04/27/22 09:38 75 16 105/64 93 Room Air 04/27/22 09:23 68 68 16 123/74 93 Room Air 04/27/22 07:00 Room Air 04/27/22 08:33 36.3 C L 94 H 20 133/76 95 Room Air 04/27/22 07:39 36.4 C L 95 H 18 103/66 94 Room Air Laboratory Results Short CBC 04/27/22 Range/Units 08:12 WBC 7.34 (4.8-10.8) K/ul Hgb 11.4 L (12.0-16.0) g/dl Hct 34.1 (34.1-44.9) % Plt Count 265 (130-400) K/uL [facility] 04/27/22 08:12 Sodium 137 Potassium 4.0 Chloride 102 Carbon Dioxide 29 BUN 19 Creatinine 0.56 L Glucose 139 H Calcium 9.0
[2022-04-27] MEDS: ACETAMINOPHEN 325 MG TAB PO PRN (19:46)
[2022-04-27] MEDS: MELATONIN 3 MG TAB PO SCH (19:46)
[2022-04-28] MEDS ORDERED: Nursing to Pharmacy Communication SCH ×2 (01:30→21:00)
[2022-04-28] MEDS: CEFEPIME 2,000 MG in SYRINGE 0 ML IV SCH ×3 (05:30→21:09)
[2022-04-28] MEDS: INSULIN ASPART PER UNIT SC SCH ×4 (06:01→21:08)
--- NOTE | 2022-04-28 06:58 | Anesthesiology Consultation ---
Date of Service April 28, 2022 Assessment & Plan (1) Encounter for pre-operative examination: Chart Review Chart Review: Acceptable Risk for Surgery and Patient NOT seen in Pre Admission Testing Consults Requested none History Surgery Operation Date: 04/21/22 12:30 Proposed Procedures p Left Buttock Wound Debridement - Andi Enriquez MD Operation Date: 04/27/22 17:15 Proposed Procedures p Esophagogastroduodenoscopy Yonis - Mariel Somers DO Operation Date: 04/28/22 07:45 Proposed Procedures p Transesophageal Echo w/Anesthesia - Jerrell Ramon DO Height/Weight Height: 5 ft 3 in Weight: 118.5 kg Allergies Allergy/AdvReac Type Severity Reaction Status Date / Time No Known Allergies Allergy Verified 04/19/22 10:23 Medications Home Medications Medication Instructions Recorded Confirmed Last Taken blood sugar diagnostic (OneTouch #50 ea 04/14/22 04/19/22 Unknown Ultra Test strips) blood-glucose meter (OneTouch #1 ea 04/14/22 04/19/22 Unknown Ultra2 Meter) daptomycin 500 mg intravenous 650 mg IV Q24H #34 ea 04/14/22 04/19/22 Unknown solution furosemide 40 mg tablet 40 mg PO QAM #30 tabs 04/14/22 04/19/22 Unknown lancets 33 gauge (OneTouch Delica #100 ea 04/14/22 04/19/22 Unknown Lancets) metformin 500 mg tablet,extended 1,000 mg PO BIDM #120 tabs 04/14/22 04/19/22 Unknown release 24 hr metoprolol tartrate 25 mg tablet 25 mg PO BID #60 tabs 04/14/22 04/19/22 Unknown spironolactone 25 mg tablet 25 mg PO DAILY #30 tabs 04/14/22 04/19/22 Unknown Active Medications Generic Name Dose Route Start Last Admin Trade Name Freq PRN Reason Stop Dose Admin Acetaminophen 650 mg 04/19/22 14:59 04/27/22 19:46 Acetaminophen 325 Mg Tab PO 05/19/22 14:58 650 mg Q4H PRN Administration pain/fever Enoxaparin Sodium 40 mg 04/19/22 15:15 04/27/22 13:51 Enoxaparin Inj 40 Mg/0.4 Ml Syr SQ 05/19/22 15:14 40 mg Q24H ERAN Administration Furosemide 40 mg 04/20/22 09:00 04/27/22 07:48 Furosemide 40 Mg Tab PO 05/20/22 08:59 40 mg QAM ERAN Administration Heparin Sodium (Beef Lung) 5 ml 04/20/22 01:28 04/28/22 05:30 Heparin 10 Unit/Ml 5 Ml Flush FLUSH 05/20/22 01:27 5 ml PRN PRN Administration Flush Cefepime HCl 2,000 mg/ Syringe 20 mls @ 5 mls/min 04/23/22 13:30 04/28/22 05:30 IV 05/07/22 13:29 5 mls/min Q8H ERAN Administration Protocol Insulin Aspart 0 units 04/28/22 06:00 04/28/22 06:01 Insulin Aspart Per Unit SC 05/28/22 05:59 1 units Q6 ERAN Administration Insulin Glargine 4 units 04/26/22 21:00 04/27/22 21:05 Lantus Per Unit Charge SQ 05/26/22 20:59 4 units BID ERAN Administration Lactobacillus Acidophilus 2 cap 04/20/22 17:45 04/27/22 07:47 Advanced Probiotic 1250 Mg Capsule PO 05/20/22 17:44 2 cap DAILY ERAN Administration Loperamide HCl 2 mg 04/24/22 09:44 04/27/22 10:53 Loperamide Hcl 2 Mg Cap PO 05/24/22 09:44 2 mg Q6H PRN Administration Diarrhea Melatonin 3 mg 04/25/22 21:00 04/27/22 19:46 Melatonin 3 Mg Tab PO 05/25/22 20:59 3 mg HS ERAN Administration Metoprolol Tartrate 25 mg 04/19/22 21:00 04/27/22 19:45 Metoprolol Tartrate 25 Mg Tab PO 05/19/22 20:59 25 mg BID ERAN Administration Metronidazole 500 mg 04/23/22 14:15 04/27/22 19:45 Metronidazole 500 Mg Tab PO 04/30/22 14:14 500 mg TID ERAN Administration Nystatin 1 appln 04/21/22 21:00 04/27/22 19:46 Nystatin Powder 15gm Btl EXT 05/21/22 20:59 1 appln BID ERAN Administration Potassium Chloride 40 meq 04/25/22 09:00 04/27/22 07:47 Potassium Chloride Crtab 20 Meq Tabcr PO 05/25/22 08:59 40 meq QAM ERAN Administration Spironolactone 100 mg 04/24/22 09:00 04/27/22 07:48 Spironolactone 100 Mg Tab PO 05/24/22 08:59 100 mg DAILY ERAN Administration NPO Date Last Intake of Fluids: 04/26/22 Time Last Intake of Fluids: 23:59 Date Last Intake of Solids: 04/26/22 Time Last Intake of Solids: 23:59 Past Medical History Medical History Acute metabolic encephalopathy Ambulatory dysfunction Aortic stenosis FRIDA 1.1cm2 04/04/22 Chronic diastolic CHF (congestive heart failure) Cirrhosis Dilated cardiomyopathy Generalized weakness Mitral regurgitation Morbid obesity with BMI of 50.0-59.9, adult MSSA bacteremia Peripheral arterial disease Pressure ulcers of skin of multiple topographic sites Type 2 diabetes mellitus Urinary retention Wound of left buttock Past Family History Family History Other Family history non-contributory Past Surgical History Surgical History No significant past surgical history Social History Smoking Status: Never smoker Hx Alcohol Use: No Hx Substance Use: No Physical Exam Vital Signs Last Vital Signs Temp 97.7 F 04/27/22 19:44 Pulse 85 04/27/22 19:44 Resp 16 04/27/22 19:44 BP 117/74 04/27/22 19:44 Pulse Ox 94 04/27/22 19:44 O2 Del Method 04/27/22 19:44 O2 Flow Rate 2 04/24/22 14:52 Testing Laboratory Results 04/27/22 08:12 04/27/22 08:12 PT 11.8 Seconds (9.0-12.0) 04/27/22 08:12 INR 1.1 (0.9-1.1) 04/27/22 08:12 Urine Color Yellow 04/19/22 18:50 Urine Appearance Clear (Clear) 04/19/22 18:50 Urine pH 5.5 (4.5-7.5) 04/19/22 18:50 Ur Specific [place] 1.014 (1.000-1.030) 04/19/22 18:50 Urine Protein Trace (Negative) H 04/19/22 18:50 Urine Glucose (UA) Negative (Negative) 04/19/22 18:50 Urine Ketones Negative (Negative) 04/19/22 18:50 Urine Nitrite Negative (Negative) 04/19/22 18:50 Ur Leukocyte Esterase Negative (Negative) 04/19/22 18:50 Urine WBC (Auto) 1-5 /hpf (0-5) 04/19/22 18:50 Urine RBC (Auto) 0-4 /hpf (0-4) 04/19/22 18:50 U Hyaline Cast (Auto) 5-10 /lpf (0-5) H 04/19/22 18:50 U Epithel Cells (Auto) 10-20 /lpf (0-5) H 04/19/22 18:50 Urine Bacteria (Auto) Negative (Negative) 04/19/22 18:50 04/21/22 Unknown Gram Stain - Final Buttock,Left Aerobic and Anaerobic Culture - Final Enterobacter cloacae Bacteroides fragilis 04/20/22 16:12 Aerobic Blood Culture - Final Blood No growth in Aerobic bottle after 5 days. Anaerobic Blood Culture - Final No growth in Anaerobic bottle after 5 days. 04/20/22 16:01 Aerobic Blood Culture - Final Blood No growth in Aerobic bottle after 5 days. Anaerobic Blood Culture - Final No growth in Anaerobic bottle after 5 days. 04/19/22 18:50 Urine Culture - Final Urine,Straight Cath Yeast not Rola albicans/dub 04/19/22 15:45 Gram Stain - Final Ankle,Left Wound Culture - Final Yeast not Rola albicans/dub 04/19/22 15:45 Gram Stain - Final Buttock,Left Wound Culture - Final Low counts mixed probable gastrointestinal microbiota. No further identifications or sensitivities to follow. 04/28/22 04/27/22 05:52 20:48 POC Glucose 152 H 145 H Electrocardiogram Date: 04/19/22 Test Reason : Blood Pressure : / mmHG Vent. Rate : 102 BPM Atrial Rate : 102 BPM P-R Int : 182 ms QRS Dur : 080 ms QT Int : 342 ms P-R-T Axes : 054 -42 064 degrees QTc Int : 445 ms Sinus tachycardia with occasional Premature ventricular complexes Left axis deviation Inferior infarct (cited on or before 04-APR-2022) Anterior infarct (cited on or before 04-APR-2022) Abnormal ECG When compared with ECG of 04-APR-2022 08:22, No significant change Confirmed by Cullen Marquez ([id number]) on 04/21/2022 9:12:11 PM Chest X-Ray Date: 04/20/22 XR chest 1V portable CLINICAL HISTORY: hypoxia COMPARISON STUDY: Chest CT April 04, 2022. Chest radiograph April 19, 2022. FINDINGS: Right PICC is in place. No pneumothorax or pleural effusion is present. Cardiomegaly is unchanged. Patient is rotated. Interstitial thickening is again noted. Linear bilateral opacities persist. There is no lobar consoli dation. IMPRESSION: 1. Cardiomegaly. Mild interstitial thickening. This may reflect pulmonary vas cular congestion without overt pulmonary edema. 2. Linear bilateral opacities which favor atelectasis. An infectious process could appear similar although is considered less likely. Echocardiogram Date: 04/04/22 EF: 50-55% LV Function: normal (Borderline global hypokinesis) Valvular Disease: + (moderate to severe) and + MR (mild) Right ventricle moderately dilated
[2022-04-28] MEDS ORDERED: PROPOFOL IV EMULSION 10 MG/ML 20 ML VIAL IV ONE ×2 (07:09→08:18)
--- NOTE | 2022-04-28 07:48 | Infectious Disease Progress Nt ---
Date of Service April 28, 2022 Assessment & Plan (1) Pressure ulcers of skin of multiple topographic sites: (2) MSSA bacteremia: Plan: She was discharged on IV Cefazolin with plans for 6 week course through 05/07/22. (04/06-05/07) but changed to Daptomycin on discharge (I suspect d/t dosing ease but I dont see notation of this and patient unable to tell me) (3) Wound of left buttock: Plan 61 yo female with PMH chronic diastolic CHF, aortic stenosis, DM type II, liver cirrhosis, recent admission after fall found to have MSSA bacteremia on Daptomycin therapy who was readmitted to [facility] on 04/20 for worsening sacral and LE wound. ID consulted for antibiotic management. Large left buttock ulcer with inflammatory stranding and deep tissue gas. w/ cellulitis with myositis. No drainable fluid collection. MRI of ankle ordered but stopped and not completed (notes state patient aborted study) . 04/20 Xray L ankle negative for gas or osteomyelitis. 04/20 Arterial dopplers of LE showed no significant stenosis. Patient was started on IV Daptomycin (continued) and Given Cefepime but changed to Zosyn. 04/21 Went to OR for sacral debridement. Findings "There was necrotic tissue, fibrinous exudate, purulent fluid extending all the way to the bone." OR cultures are growing E. Cloacae (S: Cefepime, Zosyn, Cipro) ECG reviewed and QTc <500 Recommend: Can continue with Cefepime and flagyl for now Cefepime will cover MSSA so while she is inpatient we can keep her on Cefepime/Flagyl to cover her wound infection and MSSA bacteremia If her JILLIAN is negative then recommend 4 weeks of MSSA therapy (rather than 6 weeks) this would be through 05/03/22. She should receive 4 weeks of therapy rather than 2 given her extensive co-morbidities. We can also change her to po Ciprofloxacin/Flagyl after JILLIAN and tolerating po Today If JILLIAN is negative and tolerating po: -DC Cefepime -MSSA therapy would be 4 weeks through 05/03/22 therefore change to Cefazolin 2G IV TID to this date -Start Cipro 750mg po BID with End of therapy 05/05/22 -Continue with Flagyl through 05/05/22 If JILLIAN is positive: -MSSA therapy with Cefazolin will be to 05/17/22 Will d/w primary team this morning. Kimberly Gunn MD [facility], ID Connect Admission and Anticipated Discharge Date Admission Date: April 19, 2022 Subjective This patient recommendation is based on a telemedicine consult request which was completed asynchronously through chart review and information provided by the primary physician. The patient was not seen or examined today. The evaluation is consultative in nature and all patient care and treatment decisions can either be accepted or rejected by the patient's primary hospital-based treating physician using their own independent medical judgment for their patient. 24 hours: SURY S/P EGD Planning for JILLIAN today Results & Data ([facility]) Vital Signs (Past 12 Hours) Vital Signs Temp Pulse Resp BP Pulse Ox O2 Del Method 04/28/22 07:15 82 18 137/90 96 Room Air 04/27/22 19:44 36.5 C 85 16 117/74 94 Room Air Laboratory Results Laboratory Results - last 48 hr 04/26/22 04/26/22 04/26/22 08:07 12:08 17:32 WBC RBC Hgb Hct MCV MCH MCHC RDW Std Deviation RDW Coeff of Chintan Plt Count MPV Immature Gran % (Auto) Neut % (Auto) Lymph % (Auto) [place] % (Auto) Eos % (Auto) Baso % (Auto) Neut # (Auto) Lymph # (Auto) [place] # (Auto) Eos # (Auto) Baso # (Auto) Immature Gran # (Auto) PT INR Sodium Potassium Chloride Carbon Dioxide Anion Gap BUN Creatinine Est Cr Clr Drug Dosing Est GFR ( Amer) Est GFR (Non-Af Amer) BUN/Creatinine Ratio Glucose POC Glucose 148 H 262 H 136 H Calcium 04/26/22 04/27/22 04/27/22 20:34 06:09 08:12 WBC 7.34 RBC 3.71 L Hgb 11.4 L Hct 34.1 MCV 91.9 MCH 30.7 MCHC 33.4 RDW Std Deviation 50.4 H RDW Coeff of Chintan 15.1 H Plt Count 265 MPV 9.5 Immature Gran % (Auto) 0.4 Neut % (Auto) 48.5 Lymph % (Auto) 39.9 [place] % (Auto) 5.0 Eos % (Auto) 5.2 Baso % (Auto) 1.0 Neut # (Auto) 3.56 Lymph # (Auto) 2.93 [place] # (Auto) 0.37 Eos # (Auto) 0.38 Baso # (Auto) 0.07 Immature Gran # (Auto) 0.03 H PT INR Sodium Potassium Chloride Carbon Dioxide Anion Gap BUN Creatinine Est Cr Clr Drug Dosing Est GFR ( Amer) Est GFR (Non-Af Amer) BUN/Creatinine Ratio Glucose POC Glucose 124 H 130 H Calcium 04/27/22 04/27/22 04/27/22 08:12 08:12 10:52 WBC RBC Hgb Hct MCV MCH MCHC RDW Std Deviation RDW Coeff of Chintan Plt Count MPV Immature Gran % (Auto) Neut % (Auto) Lymph % (Auto) [place] % (Auto) Eos % (Auto) Baso % (Auto) Neut # (Auto) Lymph # (Auto) [place] # (Auto) Eos # (Auto) Baso # (Auto) Immature Gran # (Auto) PT 11.8 INR 1.1 Sodium 137 Potassium 4.0 Chloride 102 Carbon Dioxide 29 Anion Gap 6 BUN 19 Creatinine 0.56 L Est Cr Clr Drug Dosing 131.3 Est GFR ( Amer) 116.6 Est GFR (Non-Af Amer) 100.6 BUN/Creatinine Ratio 33.9 H Glucose 139 H POC Glucose 160 H Calcium 9.0 04/27/22 04/27/22 04/27/22 12:12 17:06 20:48 WBC RBC Hgb Hct MCV MCH MCHC RDW Std Deviation RDW Coeff of Chintan Plt Count MPV Immature Gran % (Auto) Neut % (Auto) Lymph % (Auto) [place] % (Auto) Eos % (Auto) Baso % (Auto) Neut # (Auto) Lymph # (Auto) [place] # (Auto) Eos # (Auto) Baso # (Auto) Immature Gran # (Auto) PT INR Sodium Potassium Chloride Carbon Dioxide Anion Gap BUN Creatinine Est Cr Clr Drug Dosing Est GFR ( Amer) Est GFR (Non-Af Amer) BUN/Creatinine Ratio Glucose POC Glucose 184 H 175 H 145 H Calcium 04/28/22 05:52 WBC RBC Hgb Hct MCV MCH MCHC RDW Std Deviation RDW Coeff of Chintan Plt Count MPV Immature Gran % (Auto) Neut % (Auto) Lymph % (Auto) [place] % (Auto) Eos % (Auto) Baso % (Auto) Neut # (Auto) Lymph # (Auto) [place] # (Auto) Eos # (Auto) Baso # (Auto) Immature Gran # (Auto) PT INR Sodium Potassium Chloride Carbon Dioxide Anion Gap BUN Creatinine Est Cr Clr Drug Dosing Est GFR ( Amer) Est GFR (Non-Af Amer) BUN/Creatinine Ratio Glucose POC Glucose 152 H Calcium Microbiology 04/21/22 Unknown Buttock,Left Gram Stain - Final 04/21/22 Unknown Buttock,Left Aerobic and Anaerobic Culture - Final Enterobacter cloacae Bacteroides fragilis 04/20/22 16:12 Blood Aerobic Blood Culture - Final No growth in Aerobic bottle after 5 days. 04/20/22 16:12 Blood Anaerobic Blood Culture - Final No growth in Anaerobic bottle after 5 days. 04/20/22 16:01 Blood Aerobic Blood Culture - Final No growth in Aerobic bottle after 5 days. 04/20/22 16:01 Blood Anaerobic Blood Culture - Final No growth in Anaerobic bottle after 5 days. 04/19/22 18:50 Urine,Straight Cath Urine Culture - Final Yeast not Rola albicans/dub 04/19/22 15:45 Ankle,Left Gram Stain - Final 04/19/22 15:45 Ankle,Left Wound Culture - Final Yeast not Rola albicans/dub 04/19/22 15:45 Buttock,Left Gram Stain - Final 04/19/22 15:45 Buttock,Left Wound Culture - Final Low counts mixed probable gastrointestinal microbiota. No further identifications or sensitivities to follow. Medications Administered Current Inpatient Medications Acetaminophen (Acetaminophen 325 Mg Tab) 650 mg PO Q4H PRN PRN Reason: pain/fever Stop: 05/19/22 14:58 Last Admin: 04/27/22 19:46 Dose: 650 mg Dextrose (Dextrose 50% 50 Ml Syringe) 25 - 50 ml IV UD PRN; Protocol PRN Reason: Hypoglycemia Protocol Stop: 05/19/22 14:58 Enoxaparin Sodium (Enoxaparin Inj 40 Mg/0.4 Ml Syr) 40 mg SQ Q24H ERAN Stop: 05/19/22 15:14 Last Admin: 04/27/22 13:51 Dose: 40 mg Furosemide (Furosemide 40 Mg Tab) 40 mg PO QAM ERAN Stop: 05/20/22 08:59 Last Admin: 04/27/22 07:48 Dose: 40 mg Glucagon (Glucagon For Inj 1 Mg Vial) 1 mg SQ UD PRN; Protocol PRN Reason: Hypoglycemia Protocol Stop: 05/19/22 14:58 Glucose (Glucose 40% Gel 15 Gm Tube) 15 - 30 gm PO UD PRN; Protocol PRN Reason: Hypoglycemia Protocol Stop: 05/19/22 14:58 Glucose (Glucose 10 Tab/Tube) 4 - 8 tab PO UD PRN; Protocol PRN Reason: Hypoglycemia Treatment Stop: 05/19/22 14:58 Heparin Sodium (Beef Lung) (Heparin 10 Unit/Ml 5 Ml Flush) 5 ml FLUSH PRN PRN PRN Reason: Flush Stop: 05/20/22 01:27 Last Admin: 04/28/22 05:30 Dose: 5 ml Cefepime HCl 2,000 mg/ Syringe 20 mls @ 5 mls/min IV Q8H ERAN; Protocol Stop: 05/07/22 13:29 Last Admin: 04/28/22 05:30 Dose: 5 mls/min Insulin Aspart (Insulin Aspart Per Unit) 0 units SC Q6 ERAN Stop: 05/28/22 05:59 Last Admin: 04/28/22 06:01 Dose: 1 units Insulin Glargine (Lantus Per Unit Charge) 4 units SQ BID ERAN Stop: 05/26/22 20:59 Last Admin: 04/27/22 21:05 Dose: 4 units Lactobacillus Acidophilus (Advanced Probiotic 1250 Mg Capsule) 2 cap PO DAILY ERAN Stop: 05/20/22 17:44 Last Admin: 04/27/22 07:47 Dose: 2 cap Loperamide HCl (Loperamide Hcl 2 Mg Cap) 2 mg PO Q6H PRN PRN Reason: Diarrhea Stop: 05/24/22 09:44 Last Admin: 04/27/22 10:53 Dose: 2 mg Melatonin (Melatonin 3 Mg Tab) 3 mg PO HS ERAN Stop: 05/25/22 20:59 Last Admin: 04/27/22 19:46 Dose: 3 mg Metoprolol Tartrate (Metoprolol Tartrate 25 Mg Tab) 25 mg PO BID ERAN Stop: 05/19/22 20:59 Last Admin: 04/27/22 19:45 Dose: 25 mg Metronidazole (Metronidazole 500 Mg Tab) 500 mg PO TID ERAN Stop: 04/30/22 14:14 Last Admin: 04/27/22 19:45 Dose: 500 mg Miscellaneous (Carbohydrates For Hypoglycemia ) 15 - 30 gm PO UD PRN PRN Reason: Hypoglycemia Protocol Stop: 05/19/22 14:58 Nystatin (Nystatin Powder 15gm Btl) 1 appln EXT BID ERAN Stop: 05/21/22 20:59 Last Admin: 04/27/22 19:46 Dose: 1 appln Potassium Chloride (Potassium Chloride Crtab 20 Meq Tabcr) 40 meq PO QAM ERAN Stop: 05/25/22 08:59 Last Admin: 04/27/22 07:47 Dose: 40 meq Spironolactone (Spironolactone 100 Mg Tab) 100 mg PO DAILY ERAN Stop: 05/24/22 08:59 Last Admin: 04/27/22 07:48 Dose: 100 mg
[2022-04-28] MEDS ORDERED: BENZOCAINE/TETRACAIN/BUTAM 50 APPLN/5 GM CAN EXT ONE (07:55)
--- NOTE | 2022-04-28 08:19 | Anesthesiology Progress Note ---
Date of Service April 28, 2022 Anesthesia Post Procedure Vital Signs Vital Signs: Temp Pulse Pulse Resp BP Pulse Ox O2 Del Method 04/28/22 07:15 82 18 137/90 96 Room Air 04/27/22 19:44 97.7 F 85 16 117/74 94 Room Air 04/27/22 13:41 98.2 F 87 18 126/64 94 Room Air 04/27/22 12:44 98.2 F 79 18 107/66 96 Room Air 04/27/22 11:29 97.9 F 77 18 108/65 96 Room Air 04/27/22 10:43 97.3 F L 72 18 117/66 97 Room Air 04/27/22 10:15 97.5 F L 76 18 115/62 96 Room Air 04/27/22 09:53 74 74 16 131/72 92 Room Air 04/27/22 09:38 75 16 105/64 93 Room Air 04/27/22 09:23 68 68 16 123/74 93 Room Air 04/27/22 08:33 97.3 F L 94 H 20 133/76 95 Room Air Pain Intensity Generalized: Pain Intensity: 6 Left Buttock: Pain Intensity: 2 Transfer of Care Handoff Completed per policy Notes Mental Status: alert / awake / arousable and participated in evaluation Patient Amnestic to Procedure: Yes Nausea / Vomiting: adequately controlled Pain: adequately controlled Airway Patency, RR, SpO2: stable & adequate BP & HR: stable & adequate Hydration State: stable & adequate Anesthetic Complications: no major complications apparent and Pt Satisfied with anesthetic care
[2022-04-28] MEDS: ADVANCED PROBIOTIC 1250 MG CAPSULE PO SCH (09:17)
[2022-04-28] MEDS: POTASSIUM CHLORIDE CRTAB 20 MEQ TABCR PO SCH (09:17)
[2022-04-28] MEDS: SPIRONOLACTONE 100 MG TAB PO SCH (09:17)
[2022-04-28] MEDS: metroNIDAZOLE 500 MG TAB PO SCH ×3 (09:17→21:01)
[2022-04-28] MEDS: FUROSEMIDE 40 MG TAB PO SCH (09:18)
[2022-04-28] MEDS: NYSTATIN POWDER 15GM BTL EXT SCH ×2 (09:18→21:02)
[2022-04-28] MEDS: METOPROLOL TARTRATE 25 MG TAB PO SCH ×2 (09:18→21:01)
[2022-04-28] MEDS: LANTUS PER UNIT CHARGE SQ SCH ×2 (09:25→21:09)
--- NOTE | 2022-04-28 10:37 | Orthopedic Progress Note ---
Date of Service April 28, 2022 Assessment & Plan (1) Wound of left ankle: Plan: Continue with wound vac. Wound care nurse at bedside today, will reapply today. recommended packing wound vac sponge distally to prevent further undermining. may be out of bed, weight bear as tolerated left ankle. continue IV antibiotics as per primary service or ID Encouraged patient to think about orthotics and necessity of that. She states that she will think about it, but doesn't think she'll change her mind. Dr. Brooks present for today's visit. Will continue to re-eval wound every few days. Admission and Anticipated Discharge Date Admission Date: April 19, 2022 Subjective No complaints of pain. Declined orthotics recommendations to prevent pressure on the left ankle wound. Wound vac in place, functioning. Physical Exam Musculoskeletal: Wound vac removed left ankle wound. Wound bed with healthy granulation tissue, some mild serous fluid collection expressed from distal aspect of wound bed, No collection of abscess or purulent material. Wound probed with q-tip, no correlation with joint or tendon sheath identified. Wound bed debridement with currette by Dr. Brooks. Pressure held to wound for hemostasis. Wound vac nurse to reapply vac. Results & Data ([facility]) Vital Signs (Past 12 Hours) Vital Signs Pulse Resp BP Pulse Ox O2 Del Method O2 Flow Rate 04/28/22 08:45 80 18 109/68 95 Room Air 04/28/22 08:30 79 18 108/68 95 Room Air 04/28/22 08:16 78 18 127/73 99 Oxymask 4 04/28/22 07:15 82 18 137/90 96 Room Air
[2022-04-28] MEDS: ACETAMINOPHEN 325 MG TAB PO PRN ×2 (15:04→20:56)
[2022-04-28] MEDS: ENOXAPARIN INJ 40 MG/0.4 ML SYR SQ SCH (16:19)
[2022-04-28] MEDS: MELATONIN 3 MG TAB PO SCH (21:01)
--- NOTE | 2022-04-28 22:15 | Hospitalist Progress Note ---
Date of Service April 28, 2022 Assessment & Plan (1) Pressure ulcers of skin of multiple topographic sites: Plan: Multiple wounds scattered over body - please refer to wound care nurse documentation for full details and photos 04/20/2022 - 5cm x 5cm wound left buttock - large amount of purulent drainage expressed when rolling patient in bed. IV cefepime added to IV daptomycin patient was previously on for MSSA bacteremia. CT obtained that did not show evidence of deep abscess. General surgery consulted for wound debridement; patient underwent debridement in the OR on 04/21. 3cm x 3cm wound left lateral ankle over the malleolus - sloughing tissue pre sent. MRI ordered to evaluate for possible osteomyelitis however patient declined study. Ortho consulted, bedside debridement preformed 04/20. Vascular consult placed by ortho. BLE arterial duplex demonstrates mild diffuse disease BLE. No indications for for vascular surgery intervention. Intra-Op left buttock wound debridement culture shows Enterobacter cloacae ID following. Antibiotics changed to IV cefepime to cover for MSSA and Enterobacter cloacae in wound culture. Flagyl for anaerobic coverage. On discharge to Rehab: -DC Cefepime and Flagyl -Start Cipro 750mg po BID with End of therapy 05/05/22 -Start Cefazolin 2G IV TID with 6 week course through 05/17/22 -Weekly CBC with diff and CMP to patients primary care physician. Wound care following. Wound VAC in place to left lateral ankle and left buttock wounds. Waffle boots ordered for ankle offloading. (2) MSSA bacteremia: Plan: Diagnosed during previous admission, currently on IV cefepime. Patient declined JILLIAN to evaluate for endocarditis during previous admission however patient is now agreeable. Patient underwent EGD to evaluate for varices prior to JILLIAN. EGD shows grade 1, small esophageal varices, okay to proceed with JILLIAN. Cardiology was consulted for JILLIAN JILLIAN this morning showed vegetation on the aortic valve as per my discussion with cardiology ID on board Recommended therapy with IV Cefazolin 2g q8h to complete a total of 6 weeks course ( end therapy 05/17/22) Will start Cipro 750mg po BID with End of therapy 05/05/22 Continue with Flagyl through 05/05/22 Obtain weekly CBC, CMP and ESR Follow-up with ID Dr. Ellis Diarrhea Negative C. difficile on 04/23 Seems to be improving Urinary retention Resolved. TOV successful on 04/24. Hypoxia Resolved Intermittent hypoxia noted, patient briefly required 1-2L Continue on Lasix; spironolactone increased to 100 mg once daily. (3) Generalized weakness: (4) Ambulatory dysfunction: Plan: Patient presenting from home with reports of generalized weakness, ambulatory dysfunction, frequent falls. Recently admitted to [facility] 04/04 through 04/14 after not receiving care for many years and was found to have acute diastolic CHF, aortic stenosis, multiple lower extremity wounds, imaging findings suggestive of cirrhosis, and MSSA bacteremia. PT/OT, case management to assist with placement (5) Type 2 diabetes mellitus: Plan: Hgb A1c 10.5 04/04/2022 Newly diagnosed during previous admission, discharged on metformin Utilize Lantus and NovoLog per protocol while hospitalized (6) Aortic stenosis: (7) Chronic diastolic CHF (congestive heart failure): Plan: Appears euvolemic, continue furosemide and spironolactone Patient to establish with [facility] cardiology (8) Cirrhosis: Plan: Appears compensated Imaging during previous admission suggestive of cirrhosis, no prior history of EGD today shows small, grade 1 esophageal varices Patient to follow with [facility] as an outpatient (9) DVT prophylaxis: Plan: SQ Lovenox Dispositionpatient was discharged home last admission despite being suggested to go to rehab. Patient would need extensive wound care and IV antibiotic. Case management on board. Waiting for placement Admission and Anticipated Discharge Date Admission Date: April 19, 2022 Subjective Pt was seen and examined for follow up Sitting in chair with no acute distress Pt said that she feels ok today She had JILLIAN done today that showed vegetation on the aortic valve Denies any chest pain, palpitation, dizziness and SOB Review of Systems Review of Systems: All systems reviewed & are unremarkable except as noted in Subjective Physical Exam Physical Exam: General- No acute distress Head- atraumatic Eyes- PERRL, EOMI, ENT- oropharynx clear Neck- supple, no JVD Lungs- clear to auscultation Heart- regular rhythm; +murmur Abdomen- normal bowel sounds, soft, nontender Extremities- no calf tenderness, wound vacs in place to left ankle and left buttock Neuro- alert, oriented x 3; PERRL, EOMI; no facial palsy; no dysarthria Skin- warm & dry Results & Data Results & Data ([facility]) Vital Signs (Past 12 Hours) Vital Signs Temp Pulse Resp BP Pulse Ox O2 Del Method 04/28/22 20:58 36.5 C 84 18 109/69 95 Room Air 04/28/22 14:26 36.6 C 83 18 134/73 92 Room Air
[2022-04-29] MEDS: CEFEPIME 2,000 MG in SYRINGE 0 ML IV SCH ×2 (05:24→13:03)
[2022-04-29] MEDS: metroNIDAZOLE 500 MG TAB PO SCH ×3 (07:40→20:25)
[2022-04-29] MEDS: SPIRONOLACTONE 100 MG TAB PO SCH (07:40)
[2022-04-29] MEDS: NYSTATIN POWDER 15GM BTL EXT SCH ×2 (07:40→20:26)
[2022-04-29] MEDS: POTASSIUM CHLORIDE CRTAB 20 MEQ TABCR PO SCH (07:40)
[2022-04-29] MEDS: ADVANCED PROBIOTIC 1250 MG CAPSULE PO SCH (07:40)
[2022-04-29] MEDS: METOPROLOL TARTRATE 25 MG TAB PO SCH ×2 (07:40→20:25)
[2022-04-29] MEDS: FUROSEMIDE 40 MG TAB PO SCH (07:40)
[2022-04-29] MEDS: INSULIN ASPART PER UNIT SC SCH ×4 (08:59→21:28)
[2022-04-29] MEDS: LANTUS PER UNIT CHARGE SQ SCH ×2 (08:59→21:29)
[2022-04-29] MEDS: LOPERAMIDE HCL 2 MG CAP PO PRN (09:34)
[2022-04-29] MEDS: ACETAMINOPHEN 325 MG TAB PO PRN ×2 (16:04→20:28)
[2022-04-29] MEDS: ENOXAPARIN INJ 40 MG/0.4 ML SYR SQ SCH (16:04)
--- NOTE | 2022-04-29 17:22 | Hospitalist Progress Note ---
Date of Service April 29, 2022 Assessment & Plan (1) Pressure ulcers of skin of multiple topographic sites: Plan: Multiple wounds scattered over body - please refer to wound care nurse documentation for full details and photos 04/20/2022 - 5cm x 5cm wound left buttock - large amount of purulent drainage expressed when rolling patient in bed. IV cefepime added to IV daptomycin patient was previously on for MSSA bacteremia. CT obtained that did not show evidence of deep abscess. General surgery consulted for wound debridement; patient underwent debridement in the OR on 04/21. 3cm x 3cm wound left lateral ankle over the malleolus - sloughing tissue pres ent. MRI ordered to evaluate for possible osteomyelitis however patient declined study. Ortho consulted, bedside debridement preformed 04/20. Vascular consult placed by ortho. BLE arterial duplex demonstrates mild diffuse disease BLE. No indications for for vascular surgery intervention. Intra-Op left buttock wound debridement culture shows Enterobacter cloacae ID following. Antibiotics changed to IV cefepime to cover for MSSA and Enterobacter cloacae in wound culture. Flagyl for anaerobic coverage. On discharge to Rehab: -DC Cefepime and Flagyl -Start Cipro 750mg po BID with End of therapy 05/05/22 -Start Cefazolin 2G IV TID with 6 week course through 05/17/22 -Weekly CBC with diff and CMP to patients primary care physician. Wound care following. Wound VAC in place to left lateral ankle and left buttock wounds. Waffle boots ordered for ankle offloading. (2) MSSA bacteremia: Plan: Diagnosed during previous admission, currently on IV cefepime. Patient declined JILLIAN to evaluate for endocarditis during previous admission however patient is now agreeable. Patient underwent EGD to evaluate for varices prior to JILLIAN. EGD shows grade 1, small esophageal varices, okay to proceed with JILLIAN. Cardiology was consulted for JILLIAN JILLIAN this morning showed vegetation on the aortic valve as per my discussion with cardiology ID on board Recommended therapy with IV Cefazolin 2g q8h to complete a total of 6 weeks course ( end therapy 05/17/22) Starting on Cipro 750mg po BID with End of therapy 05/05/22 as per ID Continue with Flagyl through 05/05/22 as per ID Obtain weekly CBC, CMP and ESR Follow-up with ID Dr. Ellis Diarrhea Negative C. difficile on 11/25 Seems to be improving Urinary retention Resolved. TOV successful on 04/24. Hypoxia Resolved Intermittent hypoxia noted, patient briefly required 1-2L Continue on Lasix; spironolactone increased to 100 mg once daily. (3) Generalized weakness: (4) Ambulatory dysfunction: Plan: Patient presenting from home with reports of generalized weakness, ambulatory dysfunction, frequent falls. Recently admitted to [facility] 04/04 through 04/14 after not receiving care for many years and was found to have acute diastolic CHF, aortic stenosis, multiple lower extremity wounds, imaging findings suggestive of cirrhosis, and MSSA bacteremia. PT/OT, case management to assist with placement (5) Type 2 diabetes mellitus: Plan: Hgb A1c 10.5 04/04/2022 Newly diagnosed during previous admission, discharged on metformin Utilize Lantus and NovoLog per protocol while hospitalized (6) Aortic stenosis: (7) Chronic diastolic CHF (congestive heart failure): Plan: Appears euvolemic, continue furosemide and spironolactone Patient to establish with [facility] cardiology (8) Cirrhosis: Plan: Appears compensated Imaging during previous admission suggestive of cirrhosis, no prior history of EGD today shows small, grade 1 esophageal varices Patient to follow with [facility] as an outpatient (9) DVT prophylaxis: Plan: SQ Lovenox Dispositionpatient was discharged home last admission despite being suggested to go to rehab. Patient would need extensive wound care and IV antibiotic. Case management on board. Waiting for placement Admission and Anticipated Discharge Date Admission Date: April 19, 2022 Subjective Pt was seen and examined for follow up Sitting in chair with no acute distress Pt said that she feels ok today e Denies any chest pain, palpitation, dizziness and SOB Review of Systems Review of Systems: All systems reviewed & are unremarkable except as noted in Subjective Physical Exam Physical Exam: General- No acute distress Head- atraumatic Eyes- PERRL, EOMI, ENT- oropharynx clear Neck- supple, no JVD Lungs- clear to auscultation Heart- regular rhythm; +murmur Abdomen- normal bowel sounds, soft, nontender Extremities- no calf tenderness, wound vacs in place to left ankle and left buttock Neuro- alert, oriented x 3; PERRL, EOMI; no facial palsy; no dysarthria Skin- warm & dry Results & Data Results & Data ([facility]) Vital Signs (Past 12 Hours) Vital Signs Temp Pulse Resp BP Pulse Ox O2 Del Method 04/29/22 15:50 36.6 C 86 16 111/68 95 Room Air 04/29/22 07:35 Room Air 04/29/22 07:38 86 144/75 H 04/29/22 06:47 36.4 C L 82 18 137/77 96 Room Air
[2022-04-29] MEDS: CIPROFLOXACIN 250 MG TAB PO SCH (20:23)
[2022-04-29] MEDS: MELATONIN 3 MG TAB PO SCH (20:24)
[2022-04-29] MEDS: ceFAZolin 2000MG 2,000 MG/15 ML SYR IV SCH (22:16)
[2022-04-30] MEDS: ACETAMINOPHEN 325 MG TAB PO PRN ×3 (05:11→20:13)
[2022-04-30] MEDS: ceFAZolin 2000MG 2,000 MG/15 ML SYR IV SCH ×3 (05:12→21:08)
[2022-04-30] MEDS: metroNIDAZOLE 500 MG TAB PO SCH ×3 (08:29→20:14)
[2022-04-30] MEDS: METOPROLOL TARTRATE 25 MG TAB PO SCH ×2 (08:29→20:15)
[2022-04-30] MEDS: FUROSEMIDE 40 MG TAB PO SCH (08:29)
[2022-04-30] MEDS: CIPROFLOXACIN 250 MG TAB PO SCH ×2 (08:29→20:14)
[2022-04-30] MEDS: POTASSIUM CHLORIDE CRTAB 20 MEQ TABCR PO SCH (08:29)
[2022-04-30] MEDS: ADVANCED PROBIOTIC 1250 MG CAPSULE PO SCH (08:30)
[2022-04-30] MEDS: SPIRONOLACTONE 100 MG TAB PO SCH (08:31)
[2022-04-30] MEDS: NYSTATIN POWDER 15GM BTL EXT SCH ×2 (08:31→20:15)
[2022-04-30] MEDS: INSULIN ASPART PER UNIT SC SCH ×4 (08:45→21:08)
[2022-04-30] MEDS: LANTUS PER UNIT CHARGE SQ SCH ×2 (08:45→21:08)
[2022-04-30] MEDS: LOPERAMIDE HCL 2 MG CAP PO PRN (08:45)
[2022-04-30] MEDS ORDERED: ALTEPLASE, RECOMBINANT 1 MG/ML 2ML VIAL INSTIL ONE (09:15)
--- NOTE | 2022-04-30 10:43 | Infectious Disease Progress Nt ---
Date of Service April 30, 2022 Assessment & Plan (1) Pressure ulcers of skin of multiple topographic sites: (2) MSSA bacteremia: Plan: She was discharged on IV Cefazolin with plans for 6 week course through 05/07/22. (04/06-05/07) but changed to Daptomycin on discharge (I suspect d/t dosing ease but I dont see notation of this and patient unable to tell me). (3) Wound of left buttock: (4) Aortic valve endocarditis: Plan 61 yo female with PMH chronic diastolic CHF, aortic stenosis, DM type II, liver cirrhosis, recent admission after fall found to have MSSA bacteremia on Daptomycin therapy who was readmitted to [facility] on 04/20 for worsening sacral and LE wound. ID consulted for antibiotic management. Prior admission with MSSA bacteremia, Please see HPI for further details. TTE showed mod-severe aortic stenosis and low normal EF 50-55%. At that time no signs of MSSA seeding other locations--mental status has improved, has good joint ROM, no focal pains. Repeat blood cultures from 04/06 are negative. She refused at [facility] then and decision by ID was to extend her x 6 weeks through 05/17. Patient admitted with LE wounds. CT showed Large left buttock ulcer with inflammatory stranding and deep tissue gas. w/ cellulitis with myositis. No drainable fluid collection. MRI of ankle ordered but stopped and not completed (notes state patient aborted study) . 04/20 Xray L ankle negative for gas or osteomyelitis. 04/20 Arterial dopplers of LE showed no significant stenosis. Patient was started on IV Daptomycin (continued) and Given Cefepime but changed to Zosyn. 04/21 Went to OR for sacral debridement. Findings "There was necrotic tissue, fibrinous exudate, purulent fluid extending all the way to the bone." OR cultures are growing E. Cloacae (S: Cefepime, Zosyn, Cipro) ECG reviewed and QTc <500 She underwent EGD then [facility] on 04/29/22 showed small mobile echodensity adherent to the of R coronary AV cusp. mild valvular aortic stenosis. Discussion: Patient with likely [place] aortic valve IE secondary to MSSA infection. She is near 4 weeks of completed therapy. Size of echodenisty not mentioned but noted to be small. No CHF and valve remains function with mild . She has no other apparent sites of seeding and denies hardware. The duration of therapy for uncomplicated left-sided staphylococcal IE is six weeks. I would recommend close follow up with Cardiology regarding her . At this time does not appear to meet criteria for surgery: No apparent IE-associated valve dysfunction, extension of infection, signs of heart failure. MSSA has cleared and is being treated with Cefazolin Recommend: -Continue with Cipro 750mg po BID with End of therapy 05/05/22 -Continue with Flagyl 500mg po TID through 05/05/22 [facility] is positive: -MSSA therapy with Cefazolin will be to 05/17/22, 6 weeks from first negative blood culture I am available by page this and will return to service on Tuesday. Kimberly Gunn MD [facility], [facility] Admission and Anticipated Discharge Date Admission Date: April 19, 2022 Subjective Subsequent visit was provided via telemedicine using two-way real-time interactive telecommunication between the patient and the telemedicine provider. For the duration of the visit, the provider was performing the assessment from a different facility than the patient. This includesuse of [email or web address] stethosc ope forauscultationperformed by the telepresenter that the telemedicine provider can hear if described in the physical exam. 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 (Phone Number For Physician Use Only) After establishing a telemedicine visit, patient was: Patient was verified with two unique identifiers, Patient/authorized rep acknowledged consent and understanding and Gave permission to continue telehealth session 24 hours: [facility] shows echodensity on Aortic Valve S: Patient OOB to chair, No complaints. Physical Exam Constitutional: WD/WN, vitals as above Cardiovascular: RRR, no murmur, no edema Skin: PICC site c/d/i Wound vac on LLE Results & Data ([facility]) Vital Signs (Past 12 Hours) Vital Signs Temp Pulse Resp BP Pulse Ox O2 Del Method 04/30/22 07:30 Room Air 04/30/22 07:01 36.7 C 81 18 118/68 96 Room Air Laboratory Results Laboratory Results - last 48 hr 04/28/22 04/28/22 04/29/22 17:01 20:35 08:08 POC Glucose 175 H 147 H 157 H 04/29/22 04/29/2222 11:56 16:55 20:30 POC Glucose 200 H 203 H 152 H 04/30/22 08:04 POC Glucose 186 H Microbiology 04/21/22 Unknown Buttock,Left Gram Stain - Final 04/21/22 Unknown Buttock,Left Aerobic and Anaerobic Culture - Final Enterobacter cloacae Bacteroides fragilis 04/20/22 16:12 Blood Aerobic Blood Culture - Final No growth in Aerobic bottle after 5 days. 04/20/22 16:12 Blood Anaerobic Blood Culture - Final No growth in Anaerobic bottle after 5 days. 04/20/22 16:01 Blood Aerobic Blood Culture - Final No growth in Aerobic bottle after 5 days. 04/20/22 16:01 Blood Anaerobic Blood Culture - Final No growth in Anaerobic bottle after 5 days. 04/19/22 18:50 Urine,Straight Cath Urine Culture - Final Yeast not Rola albicans/dub 04/19/22 15:45 Ankle,Left Gram Stain - Final 04/19/22 15:45 Ankle,Left Wound Culture - Final Yeast not Rola albicans/dub 04/19/22 15:45 Buttock,Left Gram Stain - Final 04/19/22 15:45 Buttock,Left Wound Culture - Final Low counts mixed probable gastrointestinal micr obiota. No further identifications or sensitivities to follow. Medications Administered Current Inpatient Medications Acetaminophen (Acetaminophen 325 Mg Tab) 650 mg PO Q4H PRN PRN Reason: pain/fever Stop: 05/19/22 14:58 Last Admin: 04/30/22 05:11 Dose: 650 mg Ciprofloxacin (Ciprofloxacin 250 Mg Tab) 750 mg PO BID REAN Stop: 05/06/22 20:59 Last Admin: 04/30/22 08:29 Dose: 750 mg Dextrose (Dextrose 50% 50 Ml Syringe) 25 - 50 ml IV UD PRN; Protocol PRN Reason: Hypoglycemia Protocol Stop: 05/19/22 14:58 Enoxaparin Sodium (Enoxaparin Inj 40 Mg/0.4 Ml Syr) 40 mg SQ Q24H ERAN Stop: 05/19/22 15:14 Last Admin: 04/29/22 16:04 Dose: 40 mg Furosemide (Furosemide 40 Mg Tab) 40 mg PO QAM ERAN Stop: 05/20/22 08:59 Last Admin: 04/30/22 08:29 Dose: 40 mg Glucagon (Glucagon For Inj 1 Mg Vial) 1 mg SQ UD PRN; Protocol PRN Reason: Hypoglycemia Protocol Stop: 05/19/22 14:58 Glucose (Glucose 40% Gel 15 Gm Tube) 15 - 30 gm PO UD PRN; Protocol PRN Reason: Hypoglycemia Protocol Stop: 05/19/22 14:58 Glucose (Glucose 10 Tab/Tube) 4 - 8 tab PO UD PRN; Protocol PRN Reason: Hypoglycemia Treatment Stop: 05/19/22 14:58 Heparin Sodium (Beef Lung) (Heparin 10 Unit/Ml 5 Ml Flush) 5 ml FLUSH PRN PRN PRN Reason: Flush Stop: 05/20/22 01:27 Last Admin: 04/30/22 05:12 Dose: 5 ml Cefazolin Sodium (Ancef 2000mg) 2,000 mg in 15 mls @ 3.75 mls/min IV Q8H ERAN Stop: 05/17/22 21:59 Last Admin: 04/30/22 05:12 Dose: 3.75 mls/min Insulin Aspart (Insulin Aspart Per Unit) 0 units SC ACHS ERAN Stop: 05/28/22 20:59 Last Admin: 04/30/22 08:45 Dose: 9 units Insulin Glargine (Lantus Per Unit Charge) 4 units SQ BID ERAN Stop: 05/26/22 20:59 Last Admin: 04/30/22 08:45 Dose: 4 units Lactobacillus Acidophilus (Advanced Probiotic 1250 Mg Capsule) 2 cap PO DAILY ERAN Stop: 05/20/22 17:44 Last Admin: 04/30/22 08:30 Dose: 2 cap Loperamide HCl (Loperamide Hcl 2 Mg Cap) 2 mg PO Q6H PRN PRN Reason: Diarrhea Stop: 05/24/22 09:44 Last Admin: 04/30/22 08:45 Dose: 2 mg Melatonin (Melatonin 3 Mg Tab) 3 mg PO HS ERAN Stop: 05/25/22 20:59 Last Admin: 04/29/22 20:24 Dose: 3 mg Metoprolol Tartrate (Metoprolol Tartrate 25 Mg Tab) 25 mg PO BID ERAN Stop: 05/19/22 20:59 Last Admin: 04/30/22 08:29 Dose: 25 mg Metronidazole (Metronidazole 500 Mg Tab) 500 mg PO TID ERAN Stop: 05/05/22 23:59 Last Admin: 04/30/22 08:29 Dose: 500 mg Miscellaneous (Carbohydrates For Hypoglycemia ) 15 - 30 gm PO UD PRN PRN Reason: Hypoglycemia Protocol Stop: 05/19/22 14:58 Nystatin (Nystatin Powder 15gm Btl) 1 appln EXT BID ERAN Stop: 05/21/22 20:59 Last Admin: 04/30/22 08:31 Dose: 1 appln Potassium Chloride (Potassium Chloride Crtab 20 Meq Tabcr) 40 meq PO QAM ERAN Stop: 05/25/22 08:59 Last Admin: 04/30/22 08:29 Dose: 40 meq Spironolactone (Spironolactone 100 Mg Tab) 100 mg PO DAILY ERAN Stop: 05/24/22 08:59 Last Admin: 04/30/22 08:31 Dose: 100 mg
--- NOTE | 2022-04-30 15:30 | Hospitalist Progress Note ---
Date of Service April 30, 2022 Assessment & Plan (1) Pressure ulcers of skin of multiple topographic sites: Plan: Multiple wounds scattered over body - please refer to wound care nurse documentation for full details and photos 04/20/2022 - 5cm x 5cm wound left buttock - large amount of purulent drainage expressed when rolling patient in bed. IV cefepime added to IV daptomycin patient was previously on for MSSA bacteremia. CT obtained that did not show evidence of deep abscess. General surgery consulted for wound debridement; patient underwent debridement in the OR on 04/21. 3cm x 3cm wound left lateral ankle over the malleolus - sloughing tissue pres ent. MRI ordered to evaluate for possible osteomyelitis however patient declined study. Ortho consulted, bedside debridement preformed 04/20. Vascular consult placed by ortho. BLE arterial duplex demonstrates mild diffuse disease BLE. No indications for for vascular surgery intervention. Intra-Op left buttock wound debridement culture shows Enterobacter cloacae ID wound recommendations: -Continue with Cipro 750mg po BID with end of therapy 05/05/22 -Continue with Flagyl 500mg po TID through 05/05/22 Weekly CBC with diff and CMP to patients primary care physician Wound care following. Wound VAC in place to left lateral ankle and left buttock wounds. Waffle boots ordered for ankle offloading. (2) MSSA bacteremia: Plan: Patient previously declined [facility] to evaluate for endocarditis during previous admission however patient is now agreeable. [facility] showed vegetation on the aortic valve as per my discussion with cardiology. Plan for outpatient follow up in cards clinic Per ID, recommended therapy with IV Cefazolin 2g q8h to complete a total of 6 weeks course (end therapy 05/17/22) Diarrhea Negative C. difficile on 04/23 Seems to be improving Urinary retention Resolved. TOV successful on 04/24 Hypoxia Resolved Intermittent hypoxia noted, patient briefly required 1-2L Continue on Lasix; spironolactone increased to 100 mg once daily. (3) Generalized weakness: (4) Ambulatory dysfunction: Plan: PT/OT, case management to assist with placement (5) Type 2 diabetes mellitus: Plan: Hgb A1c 10.5 04/04/2022 Newly diagnosed during previous admission, discharged on metformin Utilize Lantus and NovoLog per protocol while hospitalized (6) Aortic stenosis: (7) Chronic diastolic CHF (congestive heart failure): Plan: Appears euvolemic, continue furosemide and spironolactone Patient to establish with [facility] cardiology (8) Cirrhosis: Plan: Appears compensated Imaging during previous admission suggestive of cirrhosis, no prior history of EGD today shows small, grade 1 esophageal varices Patient to follow with [facility] GI as an outpatient (9) DVT prophylaxis: Plan: SQ Lovenox Dispositionadmitted to med/surg. Will need wound vac and IV abx after dc. CM assisting with placement Admission and Anticipated Discharge Date Admission Date: April 19, 2022 Supervising Physician Co-Signing Physician Notes Patient seen and examined independently. Agree with above documentation by Lucia Ramirez PA-C. She is comfortably sitting on the chair; not in distress. Wound VAC in place and working well. Plan is for subacute rehab placement for prolonged course of IV antibiotic and wound care. education and training manager on board. Discharge when placement is available. Subjective Patient seen in 358 bed 2. Resting comfortably in bedside chair, wound VAC in place. Had lengthy discussion about importance of participating in therapy both her patient progress as well as disposition. States she understands necessity for therapy. Diarrhea improved since this morning. Denies any fever, chills, chest pain, shortness of breath, nausea, vomiting abdominal pain, dysuria or constipation. Review of Systems Review of Systems: At least ten systems reviewed and negative except as noted in the HPI. Physical Exam Physical Exam: Gen- WD/WN, NAD, sitting in bedside chair, A&Ox3 HEENT- Normocephalic, atraumatic, conjunctivae moist, sclerae anicteric, mucous membranes moist Lung- Clear to Auscultation bilaterally, no wheezes/rales/rhonchi Heart- regular rhythm; +murmur Abdomen- normal bowel sounds, soft, nontender Extremities- no calf tenderness, wound vacs in place to left ankle and left buttock Neuro- alert, oriented x 3; PERRL, EOMI; no facial palsy; no dysarthria Skin- warm & dry Results & Data Results & Data ([facility]) Vital Signs (Past 12 Hours) Vital Signs Temp Pulse Resp BP Pulse Ox O2 Del Method 04/30/22 15:05 36.4 C L 83 18 130/73 94 Room Air 04/30/22 07:30 Room Air 04/30/22 07:01 36.7 C 81 18 118/68 96 Room Air
[2022-04-30] MEDS: ENOXAPARIN INJ 40 MG/0.4 ML SYR SQ SCH (15:48)
[2022-04-30] MEDS: MELATONIN 3 MG TAB PO SCH (20:14)
[2022-05-01] MEDS: ACETAMINOPHEN 325 MG TAB PO PRN ×3 (00:56→18:28)
[2022-05-01] MEDS: ceFAZolin 2000MG 2,000 MG/15 ML SYR IV SCH ×3 (05:52→21:37)
[2022-05-01 08:27] LABS: Basophils % (auto) 1.3 %; Eosinophils # (auto) 0.43 K/uL (0-0.50); Eosinophils % (auto) 5.6 %; Hematocrit (blood only) 35.5 % (34.1-44.9); Hemoglobin 12.1 g/dl (12.0-16.0); Immature Granulocytes # (auto) 0.03 K/uL (0.00-0.02); Immature Granulocytes % (auto) 0.4 %; Lymphocytes # (auto) 2.36 K/uL (1.2-3.4); Lymphocytes % (auto) 30.6 %; Mean Corpuscular Hemoglobin 31.7 pg (25.0-34.0); Mean Corpuscular Hgb Conc 34.1 g/dL (32.0-36.0); Mean Corpuscular Volume 92.9 fL (80.0-100.0); Mean Platelet Volume 10.3 fL (9.4-12.3); Monocytes # (auto) 0.47 K/uL (0.24-0.82); Monocytes % (auto) 6.1 %; Neutrophils # (auto) 4.31 K/uL (1.4-6.5); Platelet Count 219 K/uL (130-400); RDW Coefficient of Variation 15.8 % (11.5-14.5); RDW Standard Deviation 53.9 fL (36.4-46.3); Red Blood Count 3.82 M/uL (3.93-5.22)
[2022-05-01 08:56] LABS: BUN Creatinine Ratio 44.7 (10-20); Calcium 9.5 mg/dl (8.5-10.1); Creatinine Clr Calc Pharmacy 96.7 ml/min; Est GFR (African American) 98.1 ml/min; Est GFR (Non-African American) 84.7 ml/min; Potassium 4.1 mmol/L (3.5-5.1)
[2022-05-01] MEDS: POTASSIUM CHLORIDE CRTAB 20 MEQ TABCR PO SCH (09:02)
[2022-05-01] MEDS: ADVANCED PROBIOTIC 1250 MG CAPSULE PO SCH (09:02)
[2022-05-01] MEDS: CIPROFLOXACIN 250 MG TAB PO SCH ×2 (09:02→20:15)
[2022-05-01] MEDS: SPIRONOLACTONE 100 MG TAB PO SCH (09:02)
[2022-05-01] MEDS: metroNIDAZOLE 500 MG TAB PO SCH ×3 (09:02→20:15)
[2022-05-01] MEDS: FUROSEMIDE 40 MG TAB PO SCH (09:02)
[2022-05-01] MEDS: METOPROLOL TARTRATE 25 MG TAB PO SCH ×2 (09:03→20:14)
[2022-05-01] MEDS: NYSTATIN POWDER 15GM BTL EXT SCH ×2 (09:03→20:51)
[2022-05-01] MEDS: INSULIN ASPART PER UNIT SC SCH ×4 (09:05→20:51)
[2022-05-01] MEDS: LANTUS PER UNIT CHARGE SQ SCH ×2 (09:05→20:50)
[2022-05-01] MEDS: LOPERAMIDE HCL 2 MG CAP PO PRN (10:19)
--- NOTE | 2022-05-01 14:51 | Hospitalist Progress Note ---
Date of Service May 01, 2022 Assessment & Plan (1) Pressure ulcers of skin of multiple topographic sites: Plan: Multiple wounds scattered over body - please refer to wound care nurse documentation for full details and photos 04/20/2022 - 5cm x 5cm wound left buttock - large amount of purulent drainage expressed when rolling patient in bed. IV cefepime added to IV daptomycin patient was previously on for MSSA bacteremia. CT obtained that did not show evidence of deep abscess. General surgery consulted for wound debridement; patient underwent debridement in the OR on 04/21. 3cm x 3cm wound left lateral ankle over the malleolus - sloughing tissue pres ent. MRI ordered to evaluate for possible osteomyelitis however patient declined study. Ortho consulted, bedside debridement preformed 04/20. Vascular consult placed by ortho. BLE arterial duplex demonstrates mild diffuse disease BLE. No indications for for vascular surgery intervention. Intra-Op left buttock wound debridement culture shows Enterobacter cloacae ID wound recommendations: -Continue with Cipro 750mg po BID with end of therapy 05/05/22 -Continue with Flagyl 500mg po TID through 05/05/22 Weekly CBC with diff and CMP to patients primary care physician Wound care following. Wound VAC in place to left lateral ankle and left buttock wounds. Waffle boots ordered for ankle offloading. (2) MSSA bacteremia: Plan: Patient previously declined JILLIAN to evaluate for endocarditis during previous admission however patient is now agreeable. JILLIAN showed vegetation on the aortic valve as per my discussion with cardiology. Plan for outpatient follow up in [facility] Per ID, recommended therapy with IV Cefazolin 2g q8h to complete a total of 6 weeks course (end therapy 05/17/22) Diarrhea Negative C. difficile on 04/23 Seems to be improving Urinary retention Resolved. TOV successful on 04/24 Hypoxia Resolved Intermittent hypoxia noted, patient briefly required 1-2L Lasix any spironolactone decreased to 20 mg and 50 mg respectively given rising BUN. (3) Generalized weakness: (4) Ambulatory dysfunction: Plan: PT/OT, case management to assist with placement (5) Type 2 diabetes mellitus: Plan: Hgb A1c 10.5 04/04/2022 Newly diagnosed during previous admission, discharged on metformin Utilize Lantus and NovoLog per protocol while hospitalized (6) Aortic stenosis: (7) Chronic diastolic CHF (congestive heart failure): Plan: Appears euvolemic, continue furosemide and spironolactone Patient to establish with [facility] (8) Cirrhosis: Plan: Appears compensated Imaging during previous admission suggestive of cirrhosis, no prior history of EGD today shows small, grade 1 esophageal varices Patient to follow [facility] as an outpatient (9) DVT prophylaxis: Plan: SQ Lovenox Dispositionadmitted to med/surg. Will need wound vac and IV abx after dc. CM assisting with placement Admission and Anticipated Discharge Date Admission Date: April 19, 2022 Subjective Patient seen and examined at bedside. She is sitting up on the chair comfortably; not in distress. Denies fever, chills, chest pain, shortness of breath, abdomen pain or diarrhea. Review of Systems Review of Systems: All systems reviewed & are unremarkable except as noted in Subjective Physical Exam Physical Exam: Constitutional: Awake, alert orient x3. Not in any distress. Morbidly obese. Respiratory: normal respiratory effort, lungs clear to auscultation, no wheeze, rales, rhonchi. Normal insp/exp effort, no accessory muscle use Cardiovascular: RRR, no murmur, no edema Vessels: no JVD or carotid bruit Chest: normal inspection of chest Abdomen: normal bowel sounds, soft, nontender, no hepatosplenomegaly Musculoskeletal: no cyanosis or clubbing, extremities motor strength 5/5 Skin: no rashes, warm and dry normal turgor Neurologic: PERRL, EOMI, accommodation nl, no face palsy, no dysarthria CN's II- XI intact bilaterally and moves all extremities Psychiatric: A+Ox3, euthymic affect Lymphatic: no cervical or axillary lymphadenopathy : deferred Results & Data Results & Data ([facility]) Vital Signs (Past 12 Hours) Vital Signs Temp Pulse Resp BP Pulse Ox O2 Del Method 05/01/22 07:03 36.4 C L 84 16 111/73 94 Room Air Laboratory Results Laboratory Results WBC 7.70 K/ul (4.8-10.8) 05/01/22 07:44 RBC 3.82 M/uL (3.93-5.22) L 05/01/22 07:44 Hgb 12.1 g/dl (12.0-16.0) 05/01/22 07:44 Hct 35.5 % (34.1-44.9) 05/01/22 07:44 MCV 92.9 fL (80.0-100.0) 05/01/22 07:44 MCH 31.7 pg (25.0-34.0) 05/01/22 07:44 MCHC 34.1 g/dL (32.0-36.0) 05/01/22 07:44 RDW Std Deviation 53.9 fL (36.4-46.3) H 05/01/22 07:44 RDW Coeff of Chintan 15.8 % (11.5-14.5) H 05/01/22 07:44 Plt Count 219 K/uL (130-400) 05/01/22 07:44 MPV 10.3 fL (9.4-12.3) 05/01/22 07:44 Immature Gran % (Auto) 0.4 % 05/01/22 07:44 Neut % (Auto) 56.0 % 05/01/22 07:44 Lymph % (Auto) 30.6 % 05/01/22 07:44 Pepin % (Auto) 6.1 % 05/01/22 07:44 Eos % (Auto) 5.6 % 05/01/22 07:44 Baso % (Auto) 1.3 % 05/01/22 07:44 Neut # (Auto) 4.31 K/uL (1.4-6.5) 05/01/22 07:44 Lymph # (Auto) 2.36 K/uL (1.2-3.4) 05/01/22 07:44 Pepin # (Auto) 0.47 K/uL (0.24-0.82) 05/01/22 07:44 Eos # (Auto) 0.43 K/uL (0-0.50) 05/01/22 07:44 Baso # (Auto) 0.10 K/uL (0-0.2) 05/01/22 07:44 Immature Gran # (Auto) 0.03 K/uL (0.00-0.02) H 05/01/22 07:44 ESR 102 mm/hr (0-30) H 04/26/22 06:48 PT 11.8 Seconds (9.0-12.0) 04/27/22 08:12 INR 1.1 (0.9-1.1) 04/27/22 08:12 Sodium 135 mmol/L (136-145) L 05/01/22 07:44 Potassium 4.1 mmol/L (3.5-5.1) 05/01/22 07:44 Chloride 101 mmol/L (98-107) 05/01/22 07:44 Carbon Dioxide 27 mmol/L (21-32) 05/01/22 07:44 Anion Gap 7 (3-11) 05/01/22 07:44 BUN 34 mg/dl (6-23) H 05/01/22 07:44 Creatinine 0.76 mg/dl (0.6-1.2) 05/01/22 07:44 Est Cr Clr Drug Dosing 96.7 ml/min 05/01/22 07:44 Est GFR ( Amer) 98.1 ml/min 05/01/22 07:44 Est GFR (Non-Af Amer) 84.7 ml/min 05/01/22 07:44 BUN/Creatinine Ratio 44.7 (10-20) H 05/01/22 07:44 Glucose 178 mg/dl (70-99(Fasting)) H 05/01/22 07:44 POC Glucose 280 mg/dl (70-99) H 05/01/22 12:11 Lactate 0.8 mmol/L (0.4-2.0) 04/20/22 16:02 Calcium 9.5 mg/dl (8.5-10.1) 05/01/22 07:44 Magnesium 2.0 mg/dl (1.7-2.4) 04/21/22 08:21 Total Bilirubin 0.4 mg/dl (0.2-1.0) 04/24/22 05:09 AST 23 U/L (13-39) 04/24/22 05:09 ALT 12 U/L (7-52) 04/24/22 05:09 Alkaline Phosphatase 123 U/L (34-104) H 04/24/22 05:09 Total Creatine Kinase 12 U/L (26-192) L 04/22/22 08:03 Troponin I High Sens 13.5 pg/ml (0-14) D 04/19/22 11:33 C-Reactive Protein 1.67 mg/dl (0-0.5) H 04/26/22 06:48 B-Natriuretic Peptide 585 pg/ml (0-100) H 04/19/22 12:04 Total Protein 7.3 gm/dl (6.0-8.3) 04/24/22 05:09 Albumin 2.8 gm/dl (3.4-5.0) L 04/24/22 05:09 Globulin 4.5 gm/dl (2.5-4.0) H 04/24/22 05:09 Albumin/Globulin Ratio 0.6 (0.9-2) L 04/24/22 05:09 Urine Color Yellow 04/19/22 18:50 Urine Appearance Clear (Clear) 04/19/22 18:50 Urine pH 5.5 (4.5-7.5) 04/19/22 18:50 Ur Specific Blair 1.014 (1.000-1.030) 04/19/22 18:50 Urine Protein Trace (Negative) H 04/19/22 18:50 Urine Glucose (UA) Negative (Negative) 04/19/22 18:50 Urine Ketones Negative (Negative) 04/19/22 18:50 Urine Blood 1+ (Negative) H 04/19/22 18:50 Urine Nitrite Negative (Negative) 04/19/22 18:50 Urine Bilirubin Negative (Negative) 04/19/22 18:50 Urine Urobilinogen Negative (Negative) 04/19/22 18:50 Ur Leukocyte Esterase Negative (Negative) 04/19/22 18:50 Urine WBC (Auto) 1-5 /hpf (0-5) 04/19/22 18:50 Urine RBC (Auto) 0-4 /hpf (0-4) 04/19/22 18:50 U Hyaline Cast (Auto) 5-10 /lpf (0-5) H 04/19/22 18:50 U Epithel Cells (Auto) 10-20 /lpf (0-5) H 04/19/22 18:50 Urine Bacteria (Auto) Negative (Negative) 04/19/22 18:50 Urine Yeast Budding (None Prsent) A 04/19/22 18:50 Stl C. diff Tox B Gene Negative Cdiff Gene (Neg) 04/23/22 19:30 SARS-CoV-2, RNA, NAAT NEGATIVE (NEGATIVE) 04/19/22 13:[address] 04/20/22 09:53 CT pelvis w/IV con only HISTORY: 61 years-old Female left buttock wound, eval for abscess patient presents with wound of the left buttock COMPARISON: 04/04/2022 TECHNIQUE: Axial CT images of the pelvis were obtained following the intravenous administration of 94 mL Optiray 350. A dose lowering technique was used consistent with the principals of DMITRIY. FINDINGS: Marginal nodularity of the liver is redemonstrated suspicious for cirrhosis. No hepatic mass identified. Nonspecific gallbladder wall thickening. Atherosclerosis of the aorta without aneurysm. Calcified pelvic lymph nodes are redemonstrated. 4 mm nonobstructing calculus of the inferior pole left kidney. D ecompressed urinary bladder with Lozano catheter in place. Postmenopausal endometrium appears to be mildly thickened. No bowel obstruction or bowel wall thickening. Moderate colonic fecal retention. Normal appendix. Small fat filled periumbilical hernia, diastases of 2.7 cm. There is a large left buttock soft tissue wound measuring approximately 3.8 cm transversely. There is a large amount of air and/or packing material extending into the wound into the proximal left thigh. This is most pronounced medially however air and inflammatory stranding tracks into the hamstring and abductor musculature. No drainable fluid collection. Degenerative changes of the spine, pelvis and hips. No acute fracture. No destructive bone lesion. IMPRESSION: 1. Large left buttock ulcer with inflammatory stranding and deep tissue gas. Findings may be secondary to recent intervention, however should be correlated clinically to exclude fasciitis. Additionally, there is evidence of associated cellulitis with myositis. No drainable fluid collection. 2. No bowel obstruction or bowel wall thickening. 3. Left nephrolithiasis. 4. Nonspecific gallbladder wall thickening. Findings could be correlated with ultrasound. 5. Additional findings as above. ACT 112: Negative or not required by law. The above report was generated using voice recognition software. It may contain grammatical, syntax or spelling errors. Electronically signed by: Michael Rodriguez M.D. 04/20/2022 3:01 PM Ankle MRI 04/20/22 09:58 MR ankle LT wo con CLINICAL HISTORY: 61 years-old Female with left lateral ankle wound, eval for osteo. 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 No additional images were obtained. FINDINGS/IMPRESSION: Limited electronics technician images were obtained. The patient decided to abort the study. No diagnostic images were obtained. The patient will not be charged for this exam. ACT 112: Negative or not required by law. The above report was generated using voice recognition software. It may contain grammatical, syntax or spelling errors. Electronically signed by: Michael Rodriguez M.D. 04/20/2022 1:52 PM Ankle X-Ray 04/20/22 10:20 LEFT ANKLE 3 VIEWS CLINICAL HISTORY: Wound. FINDINGS: 3 views of the left ankle are correlated with CT scan of the left tibia and fibula dated 04/04/2022. The skeletal structures are osteopenic. No fracture is seen. There is no bony erosion or periostitis. The ankle mortise is intact. No joint effusion is identified. There is a large plantar heel spur. Degenerative spurring is seen along the dorsal aspect of the tarsal bones. Soft tissue edema is present throughout the left lower extremity. There is advanced atherosclerotic calcification of the regional arteries. Phleboliths are noted in the calf. No soft tissue gas is seen. IMPRESSION: 1. Soft tissue swelling with no acute bony abnormality identified. 2. Osteopenia with degenerative change and a large heel spur as above. Electronically signed by: Israel Johnson M.D. 04/20/2022 12:24 PM Duplex Scan Lower Extremity Artery 04/20/22 14:59 US arterial duplex LE BI HISTORY: 61 years-old Female non healing wounds chronic nonhealing wounds of the lower extremities COMPARISON: None TECHNIQUE: Multiple real-time sonographic images of the lower extremity arterial structures were obtained assessing grayscale appearance, color and spectral flow FINDINGS: RIGHT: Triphasic waveforms within the common femoral, superficial femoral and anterior tibial arteries with monophasic waveforms extending from the popliteal artery into the lower leg. No arterial occlusion or significantly elevated peak systolic velocities within the right lower extremity. Atherosclerotic plaque is noted. LEFT: Triphasic waveforms within the common femoral, superficial femoral and anterior tibial arteries with monophasic waveforms extending from the popliteal artery into the lower leg. No arterial occlusion or significantly elevated peak systolic velocities within the left lower extremity. Atherosclerotic plaque is noted. Distal portions of the anterior tibial, peroneal, posterior tibial and dorsalis pedis arteries aren't able to be visualized secondary to overlying bandages. ABIs were also unable to be obtained secondary to these same reasons. IMPRESSION: 1. No arterial occlusion or significantly elevated peak systolic velocities identified to suggest high-grade stenosis. 2. Limited exam as above. 3. Monophasic waveforms of the lower legs. ACT 112: Negative or not required by law. The above report was generated using voice recognition software. It may contain grammatical, syntax or spelling errors. Electronically signed by: Michael Rodriguez M.D. 04/21/2022 9:12 AM Chest X-Ray 04/20/22 15:38 XR chest 1V portable CLINICAL HISTORY: hypoxia COMPARISON STUDY: Chest CT April 04, 2022. Chest radiograph April 19, 2022. FINDINGS: Right PICC is in place. No pneumothorax or pleural effusion is present. Cardiomegaly is unchanged. Patient is rotated. Interstitial thickening is again noted. Linear bilateral opacities persist. There is no lobar consolidation. IMPRESSION: 1. Cardiomegaly. Mild interstitial thickening. This may reflect pulmonary vascular congestion without overt pulmonary edema. 2. Linear bilateral opacities which favor atelectasis. An infectious process could appear similar although is considered less likely. ACT 112: Negative or not required by law. Electronically signed by: Cruz Berman M.D. 04/20/2022 5:03 PM
[2022-05-01] MEDS: ENOXAPARIN INJ 40 MG/0.4 ML SYR SQ SCH (15:58)
[2022-05-01] MEDS: MELATONIN 3 MG TAB PO SCH (20:14)
[2022-05-02] MEDS: ceFAZolin 2000MG 2,000 MG/15 ML SYR IV SCH ×3 (05:47→22:29)
[2022-05-02] MEDS: ACETAMINOPHEN 325 MG TAB PO PRN ×3 (07:55→22:28)
[2022-05-02] MEDS: INSULIN ASPART PER UNIT SC SCH ×4 (08:57→21:01)
[2022-05-02] MEDS: LANTUS PER UNIT CHARGE SQ SCH ×2 (09:06→21:02)
[2022-05-02] MEDS: ADVANCED PROBIOTIC 1250 MG CAPSULE PO SCH (09:07)
[2022-05-02] MEDS: POTASSIUM CHLORIDE CRTAB 20 MEQ TABCR PO SCH (09:07)
[2022-05-02] MEDS: CIPROFLOXACIN 250 MG TAB PO SCH ×2 (09:08→21:00)
[2022-05-02] MEDS: SPIRONOLACTONE 25 MG TAB PO SCH (09:08)
[2022-05-02] MEDS: LOPERAMIDE HCL 2 MG CAP PO PRN (09:08)
[2022-05-02] MEDS: metroNIDAZOLE 500 MG TAB PO SCH ×3 (09:08→20:59)
[2022-05-02] MEDS: METOPROLOL TARTRATE 25 MG TAB PO SCH ×2 (09:08→20:59)
[2022-05-02] MEDS: FUROSEMIDE 20 MG TAB PO SCH (09:08)
[2022-05-02] MEDS: NYSTATIN POWDER 15GM BTL EXT SCH ×2 (09:08→20:59)
[2022-05-02 09:27] LABS: BUN Creatinine Ratio 52.4 (10-20); Calcium 9.4 mg/dl (8.5-10.1); Creatinine Clr Calc Pharmacy 116.7 ml/min; Est GFR (African American) 112.2 ml/min; Est GFR (Non-African American) 96.8 ml/min; Potassium 4.1 mmol/L (3.5-5.1)
--- NOTE | 2022-05-02 14:59 | Hospitalist Progress Note ---
Date of Service May 02, 2022 Assessment & Plan (1) Pressure ulcers of skin of multiple topographic sites: Plan: Multiple wounds scattered over body - please refer to wound care nurse documentation for full details and photos 04/20/2022 - 5cm x 5cm wound left buttock - large amount of purulent drainage expressed when rolling patient in bed. IV cefepime added to IV daptomycin patient was previously on for MSSA bacteremia. CT obtained that did not show evidence of deep abscess. General surgery consulted for wound debridement; patient underwent debridement in the OR on 04/21. 3cm x 3cm wound left lateral ankle over the malleolus - sloughing tissue pres ent. MRI ordered to evaluate for possible osteomyelitis however patient declined study. Ortho consulted, bedside debridement preformed 04/20. Vascular consult placed by ortho. BLE arterial duplex demonstrates mild diffuse disease BLE. No indications for for vascular surgery intervention. Intra-Op left buttock wound debridement culture shows Enterobacter cloacae ID wound recommendations: -Continue with Cipro 750mg po BID with end of therapy 05/05/22 -Continue with Flagyl 500mg po TID through 05/05/22 Weekly CBC with diff and CMP to patients primary care physician Wound care following. Wound VAC in place to left lateral ankle and left buttock wounds. Waffle boots ordered for ankle offloading. (2) MSSA bacteremia: Plan: Patient previously declined [facility] to evaluate for endocarditis during previous admission however patient is now agreeable. JILLIAN showed vegetation on the aortic valve as per my discussion with cardiology. Plan for outpatient follow up in [facility] clinic Per ID, recommended therapy with IV Cefazolin 2g q8h to complete a total of 6 weeks course (end therapy 05/17/22) Diarrhea Negative C. difficile on 04/23 Seems to be improving Urinary retention Resolved. TOV successful on 04/24 Hypoxia Resolved Intermittent hypoxia noted, patient briefly required 1-2L Lasix any spironolactone decreased to 20 mg and 50 mg respectively given rising BUN. (3) Generalized weakness: (4) Ambulatory dysfunction: Plan: PT/OT, case management to assist with placement (5) Type 2 diabetes mellitus: Plan: Hgb A1c 10.5 04/04/2022 Newly diagnosed during previous admission, discharged on metformin Utilize Lantus and NovoLog per protocol while hospitalized (6) Aortic stenosis: (7) Chronic diastolic CHF (congestive heart failure): Plan: Appears euvolemic, continue furosemide and spironolactone [facility] (8) Cirrhosis: Plan: Appears compensated Imaging during previous admission suggestive of cirrhosis, no prior history of EGD today shows small, grade 1 esophageal varices Patient to follow with [facility] as an outpatient (9) DVT prophylaxis: Plan: SQ Lovenox Dispositionadmitted to med/surg. Will need wound vac and IV abx after dc. CM assisting with placement Admission and Anticipated Discharge Date Admission Date: April 19, 2022 Subjective Patient seen and examined at bedside. She is comfortably sitting up on the chair; not in distress. She is voiding well; no complaint of abdominal pain. No complaint of diarrhea Review of Systems Review of Systems: All systems reviewed & are unremarkable except as noted in Subjective Physical Exam Physical Exam: Constitutional: Awake, alert orient x3. Not in any distress. Morbidly obese. Respiratory: normal respiratory effort, lungs clear to auscultation, no wheeze, rales, rhonchi. Normal insp/exp effort, no accessory muscle use Cardiovascular: RRR, no murmur, no edema Vessels: no JVD or carotid bruit Chest: normal inspection of chest Abdomen: normal bowel sounds, soft, nontender, no hepatosplenomegaly Musculoskeletal: no cyanosis or clubbing, extremities motor strength 5/5 Skin: no rashes, warm and dry normal turgor Neurologic: PERRL, EOMI, accommodation nl, no face palsy, no dysarthria CN's II- XI intact bilaterally and moves all extremities Psychiatric: A+Ox3, euthymic affect Lymphatic: no cervical or axillary lymphadenopathy : deferred Results & Data Results & Data ([facility]) Vital Signs (Past 12 Hours) Vital Signs Temp Pulse Resp BP Pulse Ox O2 Del Method 05/02/22 07:06 36.5 C 87 16 109/68 95 Room Air Laboratory Results Laboratory Results WBC 7.70 K/ul (4.8-10.8) 05/01/22 07:44 RBC 3.82 M/uL (3.93-5.22) L 05/01/22 07:44 Hgb 12.1 g/dl (12.0-16.0) 05/01/22 07:44 Hct 35.5 % (34.1-44.9) 05/01/22 07:44 MCV 92.9 fL (80.0-100.0) 05/01/22 07:44 MCH 31.7 pg (25.0-34.0) 05/01/22 07:44 MCHC 34.1 g/dL (32.0-36.0) 05/01/22 07:44 RDW Std Deviation 53.9 fL (36.4-46.3) H 05/01/22 07:44 RDW Coeff of Chintan 15.8 % (11.5-14.5) H 05/01/22 07:44 Plt Count 219 K/uL (130-400) 05/01/22 07:44 MPV 10.3 fL (9.4-12.3) 05/01/22 07:44 Immature Gran % (Auto) 0.4 % 05/01/22 07:44 Neut % (Auto) 56.0 % 05/01/22 07:44 Lymph % (Auto) 30.6 % 05/01/22 07:44 Crane % (Auto) 6.1 % 05/01/22 07:44 Eos % (Auto) 5.6 % 05/01/22 07:44 Baso % (Auto) 1.3 % 05/01/22 07:44 Neut # (Auto) 4.31 K/uL (1.4-6.5) 05/01/22 07:44 Lymph # (Auto) 2.36 K/uL (1.2-3.4) 05/01/22 07:44 Crane # (Auto) 0.47 K/uL (0.24-0.82) 05/01/22 07:44 Eos # (Auto) 0.43 K/uL (0-0.50) 05/01/22 07:44 Baso # (Auto) 0.10 K/uL (0-0.2) 05/01/22 07:44 Immature Gran # (Auto) 0.03 K/uL (0.00-0.02) H 05/01/22 07:44 ESR 102 mm/hr (0-30) H 04/26/22 06:48 PT 11.8 Seconds (9.0-12.0) 04/27/22 08:12 INR 1.1 (0.9-1.1) 04/27/22 08:12 Sodium 136 mmol/L (136-145) 05/02/22 07:51 Potassium 4.1 mmol/L (3.5-5.1) 05/02/22 07:51 Chloride 100 mmol/L (98-107) 05/02/22 07:51 Carbon Dioxide 29 mmol/L (21-32) 05/02/22 07:51 Anion Gap 7 (3-11) 05/02/22 07:51 BUN 33 mg/dl (6-23) H 05/02/22 07:51 Creatinine 0.63 mg/dl (0.6-1.2) 05/02/22 07:51 Est Cr Clr Drug Dosing 116.7 ml/min 05/02/22 07:51 Est GFR ( Amer) 112.2 ml/min 05/02/22 07:51 Est GFR (Non-Af Amer) 96.8 ml/min 05/02/22 07:51 BUN/Creatinine Ratio 52.4 (10-20) H 05/02/22 07:51 Glucose 170 mg/dl (70-99(Fasting)) H 05/02/22 07:51 POC Glucose 287 mg/dl (70-99) H 05/02/22 12:01 Lactate 0.8 mmol/L (0.4-2.0) 04/20/22 16:02 Calcium 9.4 mg/dl (8.5-10.1) 05/02/22 07:51 Magnesium 2.0 mg/dl (1.7-2.4) 04/21/22 08:21 Total Bilirubin 0.4 mg/dl (0.2-1.0) 04/24/22 05:09 AST 23 U/L (13-39) 04/24/22 05:09 ALT 12 U/L (7-52) 04/24/22 05:09 Alkaline Phosphatase 123 U/L (34-104) H 04/24/22 05:09 Total Creatine Kinase 12 U/L (26-192) L 04/22/22 08:03 Troponin I High Sens 13.5 pg/ml (0-14) D 04/19/22 11:33 C-Reactive Protein 1.67 mg/dl (0-0.5) H 04/26/22 06:48 B-Natriuretic Peptide 585 pg/ml (0-100) H 04/19/22 12:04 Total Protein 7.3 gm/dl (6.0-8.3) 04/24/22 05:09 Albumin 2.8 gm/dl (3.4-5.0) L 04/24/22 05:09 Globulin 4.5 gm/dl (2.5-4.0) H 04/24/22 05:09 Albumin/Globulin Ratio 0.6 (0.9-2) L 04/24/22 05:09 Urine Color Yellow 04/19/22 18:50 Urine Appearance Clear (Clear) 04/19/22 18:50 Urine pH 5.5 (4.5-7.5) 04/19/22 18:50 Ur Specific [place] 1.014 (1.000-1.030) 04/19/22 18:50 Urine Protein Trace (Negative) H 04/19/22 18:50 Urine Glucose (UA) Negative (Negative) 04/19/22 18:50 Urine Ketones Negative (Negative) 04/19/22 18:50 Urine Blood 1+ (Negative) H 04/19/22 18:50 Urine Nitrite Negative (Negative) 04/19/22 18:50 Urine Bilirubin Negative (Negative) 04/19/22 18:50 Urine Urobilinogen Negative (Negative) 04/19/22 18:50 Ur Leukocyte Esterase Negative (Negative) 04/19/22 18:50 Urine WBC (Auto) 1-5 /hpf (0-5) 04/19/22 18:50 Urine RBC (Auto) 0-4 /hpf (0-4) 04/19/22 18:50 U Hyaline Cast (Auto) 5-10 /lpf (0-5) H 04/19/22 18:50 U Epithel Cells (Auto) 10-20 /lpf (0-5) H 04/19/22 18:50 Urine Bacteria (Auto) Negative (Negative) 04/19/22 18:50 Urine Yeast Budding (None Prsent) A 04/19/22 18:50 Stl C. diff Tox B Gene Negative Cdiff Gene (Neg) 04/23/22 19:30 SARS-CoV-2, RNA, NAAT NEGATIVE (NEGATIVE) 04/19/22 13:[address] 04/20/22 09:53 CT pelvis w/IV con only HISTORY: 61 years-old Female left buttock wound, eval for abscess patient presents with wound of the left buttock COMPARISON: 04/04/2022 TECHNIQUE: Axial CT images of the pelvis were obtained following the intravenous administration of 94 mL Optiray 350. A dose lowering technique was used consistent with the principals of DMITRIY. FINDINGS: Marginal nodularity of the liver is redemonstrated suspicious for cirrhosis. No hepatic mass identified. Nonspecific gallbladder wall thickening. Atherosclerosis of the aorta without aneurysm. Calcified pelvic lymph nodes are redemonstrated. 4 mm nonobstructing calculus of the inferior pole left kidney. Decompressed urinary bladder with Lozano catheter in place. Postmenopausal endometrium appears to be mildly thickened. No bowel obstruction or bowel wall thickening. Moderate colonic fecal retention. Normal appendix. Small fat filled periumbilical hernia, diastases of 2.7 cm. There is a large left buttock soft tissue wound measuring approximately 3.8 cm transversely. There is a large amount of air and/or packing material extending into the wound into the proximal left thigh. This is most pronounced medially however air and inflammatory stranding tracks into the hamstring and abductor musculature. No drainable fluid collection. Degenerative changes of the spine, pelvis and hips. No acute fracture. No destructive bone lesion. IMPRESSION: 1. Large left buttock ulcer with inflammatory stranding and deep tissue gas. Findings may be secondary to recent intervention, however should be correlated clinically to exclude fasciitis. Additionally, there is evidence of associated cellulitis with myositis. No drainable fluid collection. 2. No bowel obstruction or bowel wall thickening. 3. Left nephrolithiasis. 4. Nonspecific gallbladder wall thickening. Findings could be correlated with ultrasound. 5. Additional findings as above. ACT 112: Negative or not required by law. The above report was generated using voice recognition software. It may contain grammatical, syntax or spelling errors. Electronically signed by: Michael Rodriguez M.D. 04/20/2022 3:01 PM Ankle MRI 04/20/22 09:58 MR ankle LT wo con CLINICAL HISTORY: 61 years-old Female with left lateral ankle wound, eval for osteo. 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 No additional images were obtained. FINDINGS/IMPRESSION: Limited patient sitter images were obtained. The patient decided to abort the study. No diagnostic images were obtained. The patient will not be charged for this exam. ACT 112: Negative or not required by law. The above report was generated using voice recognition software. It may contain grammatical, syntax or spelling errors. Electronically signed by: Michael Rodriguez M.D. 04/20/2022 1:52 PM Ankle X-Ray 04/20/22 10:20 LEFT ANKLE 3 VIEWS CLINICAL HISTORY: Wound. FINDINGS: 3 views of the left ankle are correlated with CT scan of the left tibia and fibula dated 04/04/2022. The skeletal structures are osteopenic. No fracture is seen. There is no bony erosion or periostitis. The ankle mortise is intact. No joint effusion is identified. There is a large plantar heel spur. Degenerative spurring is seen along the dorsal aspect of the tarsal bones. Soft tissue edema is present throughout the left lower extremity. There is advanced atherosclerotic calcification of the regional arteries. Phleboliths are noted in the calf. No soft tissue gas is seen. IMPRESSION: 1. Soft tissue swelling with no acute bony abnormality identified. 2. Osteopenia with degenerative change and a large heel spur as above. Electronically signed by: Israel Johnson M.D. 04/20/2022 12:24 PM Duplex Scan Lower Extremity Artery 04/20/22 14:59 US arterial duplex LE BI HISTORY: 61 years-old Female non healing wounds chronic nonhealing wounds of the lower extremities COMPARISON: None TECHNIQUE: Multiple real-time sonographic images of the lower extremity arterial structures were obtained assessing grayscale appearance, color and spectral flow FINDINGS: RIGHT: Triphasic waveforms within the common femoral, superficial femoral and anterior tibial arteries with monophasic waveforms extending from the popliteal artery into the lower leg. No arterial occlusion or significantly elevated peak systolic velocities within the right lower extremity. Atherosclerotic plaque is noted. LEFT: Triphasic waveforms within the common femoral, superficial femoral and anterior tibial arteries with monophasic waveforms extending from the popliteal artery into the lower leg. No arterial occlusion or significantly elevated peak systolic velocities within the left lower extremity. Atherosclerotic plaque is noted. Distal portions of the anterior tibial, peroneal, posterior tibial and dorsalis pedis arteries aren't able to be visualized secondary to overlying bandages. ABIs were also unable to be obtained secondary to these same reasons. IMPRESSION: 1. No arterial occlusion or significantly elevated peak systolic velocities identified to suggest high-grade stenosis. 2. Limited exam as above. 3. Monophasic waveforms of the lower legs. ACT 112: Negative or not required by law. The above report was generated using voice recognition software. It may contain grammatical, syntax or spelling errors. Electronically signed by: Michael Rodriguez M.D. 04/21/2022 9:12 AM Chest X-Ray 04/20/22 15:38 XR chest 1V portable CLINICAL HISTORY: hypoxia COMPARISON STUDY: Chest CT April 04, 2022. Chest radiograph April 19, 2022. FINDINGS: Right PICC is in place. No pneumothorax or pleural effusion is present. Cardiomegaly is unchanged. Patient is rotated. Interstitial thickening is again noted. Linear bilateral opacities persist. There is no lobar consolidation. IMPRESSION: 1. Cardiomegaly. Mild interstitial thickening. This may reflect pulmonary vascular congestion without overt pulmonary edema. 2. Linear bilateral opacities which favor atelectasis. An infectious process could appear similar although is considered less likely. ACT 112: Negative or not required by law. Electronically signed by: Cruz Berman M.D. 04/20/2022 5:03 PM
[2022-05-02] MEDS: ENOXAPARIN INJ 40 MG/0.4 ML SYR SQ SCH (16:34)
[2022-05-02] MEDS: MELATONIN 3 MG TAB PO SCH (20:59)
[2022-05-03] MEDS: ceFAZolin 2000MG 2,000 MG/15 ML SYR IV SCH ×3 (05:36→21:27)
[2022-05-03 07:05] LABS: BUN Creatinine Ratio 52.3 (10-20); Calcium 9.3 mg/dl (8.5-10.1); Creatinine Clr Calc Pharmacy 113.1 ml/min; Est GFR (African American) 111.1 ml/min; Est GFR (Non-African American) 95.8 ml/min; Magnesium 1.9 mg/dl (1.7-2.4); Potassium 4.1 mmol/L (3.5-5.1)
[2022-05-03] MEDS: ACETAMINOPHEN 325 MG TAB PO PRN ×2 (07:59→20:10)
[2022-05-03] MEDS: ADVANCED PROBIOTIC 1250 MG CAPSULE PO SCH (08:00)
[2022-05-03] MEDS: METOPROLOL TARTRATE 25 MG TAB PO SCH ×2 (08:01→20:09)
[2022-05-03] MEDS: CIPROFLOXACIN 250 MG TAB PO SCH ×2 (08:01→20:09)
[2022-05-03] MEDS: NYSTATIN POWDER 15GM BTL EXT SCH ×2 (08:01→20:11)
[2022-05-03] MEDS: metroNIDAZOLE 500 MG TAB PO SCH ×3 (08:01→20:08)
[2022-05-03] MEDS: FUROSEMIDE 20 MG TAB PO SCH (08:01)
[2022-05-03] MEDS: POTASSIUM CHLORIDE CRTAB 20 MEQ TABCR PO SCH (08:01)
[2022-05-03] MEDS: SPIRONOLACTONE 25 MG TAB PO SCH (08:01)
[2022-05-03] MEDS: LANTUS PER UNIT CHARGE SQ SCH ×2 (08:58→21:27)
[2022-05-03] MEDS: INSULIN ASPART PER UNIT SC SCH ×4 (08:58→21:28)
--- NOTE | 2022-05-03 11:54 | Infectious Disease Progress Nt ---
Date of Service May 03, 2022 Assessment & Plan (1) Pressure ulcers of skin of multiple topographic sites: (2) MSSA bacteremia: Plan: She was discharged on IV Cefazolin with plans for 6 week course through 05/07/22. (04/06-05/07) but changed to Daptomycin on discharge (I suspect d/t dosing ease but I dont see notation of this and patient unable to tell me). (3) Wound of left buttock: (4) Aortic valve endocarditis: Plan 61 yo female with PMH chronic diastolic CHF, aortic stenosis, DM type II, liver cirrhosis, recent admission after fall found to have MSSA bacteremia on Daptomycin therapy who was readmitted to [facility] on 04/20 for worsening sacral and LE wound. ID consulted for antibiotic management. Prior admission with MSSA bacteremia, Please see HPI for further details. TTE showed mod-severe aortic stenosis and low normal EF 50-55%. At that time no signs of MSSA seeding other locations--mental status has improved, has good joint ROM, no focal pains. Repeat blood cultures from 04/06 are negative. She refused at [facility] then and decision by ID was to extend her x 6 weeks through 05/17. Patient admitted with LE wounds. CT showed Large left buttock ulcer with inflammatory stranding and deep tissue gas. w/ cellulitis with myositis. No drainable fluid collection. MRI of ankle ordered but stopped and not completed (notes state patient aborted study) . 04/20 Xray L ankle negative for gas or osteomyelitis. 04/20 Arterial dopplers of LE showed no significant stenosis. Patient was started on IV Daptomycin (continued) and Given Cefepime but changed to Zosyn. 04/21 Went to OR for sacral debridement. Findings "There was necrotic tissue, fibrinous exudate, purulent fluid extending all the way to the bone." OR cultures are growing E. Cloacae (S: Cefepime, Zosyn, Cipro) ECG reviewed and QTc <500 She underwent EGD then [facility] on 04/29/22 showed small mobile echodensity adherent to the of R coronary AV cusp. mild valvular aortic stenosis. 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 She is about 4 weeks of completed therapy. Size of echodenisty not mentioned but noted to be small. No CHF and valve remains function with mild . She has no other apparent sites of seeding and denies hardware. The duration of therapy for uncomplicated left-sided staphylococcal IE is six weeks. I would recommend close follow up with Cardiology regarding her . At this time does not appear to meet criteria for surgery: No apparent IE-associated valve dysfunction, extension of infection, signs of heart failure. MSSA has cleared and is being treated with Cefazolin Recommend: -Continue with Cipro 750mg po BID with End of therapy 05/05/22 -Continue with Flagyl 500mg po TID through 05/05/22 For confederated sal[place] AV endocarditis, recommend:-MSSA therapy with Cefazolin will be to 05/17/22, 6 weeks from first negative blood culture Will d/w Dr. Blake Please page me with any questions. Kimberly Gunn MD [facility], [facility] Admission and Anticipated Discharge Date Admission Date: April 19, 2022 Subjective This patient recommendation is based on a telemedicine consult request which was completed asynchronously through chart review and information provided by the primary physician. The patient was not seen or examined today. The evaluation is consultative in nature and all patient care and treatment decisions can either be accepted or rejected by the patient's primary hospital-based treating physician using their own independent medical judgment for their patient. 24 hours/OTW: SURY No new Micro Results & Data ([place]) Vital Signs (Past 12 Hours) Vital Signs Temp Pulse Resp BP Pulse Ox O2 Del Method 05/03/22 06:58 36.4 C L 88 16 112/70 97 Room Air Laboratory Results Laboratory Results - last 48 hr 05/01/22 05/01/22 05/01/22 12:11 17:04 20:30 Sodium Potassium Chloride Carbon Dioxide Anion Gap BUN Creatinine Est Cr Clr Drug Dosing Est GFR ( Amer) Est GFR (Non-Af Amer) BUN/Creatinine Ratio Glucose POC Glucose 280 H 144 H 151 H Calcium Magnesium 05/02/22 05/02/22 05/02/22 07:51 08:08 12:01 Sodium 136 Potassium 4.1 Chloride 100 Carbon Dioxide 29 Anion Gap 7 BUN 33 H Creatinine 0.63 Est Cr Clr Drug Dosing 116.7 Est GFR ( Amer) 112.2 Est GFR (Non-Af Amer) 96.8 BUN/Creatinine Ratio 52.4 H Glucose 170 H POC Glucose 164 H 287 H Calcium 9.4 Magnesium 05/02/22 05/02/22 05/03/22 17:08 20:42 05:39 Sodium 134 L Potassium 4.1 Chloride 100 Carbon Dioxide 29 Anion Gap 5 BUN 34 H Creatinine 0.65 Est Cr Clr Drug Dosing 113.1 Est GFR ( Amer) 111.1 Est GFR (Non-Af Amer) 95.8 BUN/Creatinine Ratio 52.3 H Glucose 184 H POC Glucose 156 H 222 H Calcium 9.3 Magnesium 1.9 05/03/22 08:02 Sodium Potassium Chloride Carbon Dioxide Anion Gap BUN Creatinine Est Cr Clr Drug Dosing Est GFR ( Amer) Est GFR (Non-Af Amer) BUN/Creatinine Ratio Glucose POC Glucose 192 H Calcium Magnesium Microbiology 04/21/22 Unknown Buttock,Left Gram Stain - Final 04/21/22 Unknown Buttock,Left Aerobic and Anaerobic Culture - Final Enterobacter cloacae Bacteroides fragilis 04/20/22 16:12 Blood Aerobic Blood Culture - Final No growth in Aerobic bottle after 5 days. 04/20/22 16:12 Blood Anaerobic Blood Culture - Final No growth in Anaerobic bottle after 5 days. 04/20/22 16:01 Blood Aerobic Blood Culture - Final No growth in Aerobic bottle after 5 days. 04/20/22 16:01 Blood Anaerobic Blood Culture - Final No growth in Anaerobic bottle after 5 days. 04/19/22 18:50 Urine,Straight Cath Urine Culture - Final Yeast not Rola albicans/dub 04/19/22 15:45 Ankle,Left Gram Stain - Final 04/19/22 15:45 Ankle,Left Wound Culture - Final Yeast not Rola albicans/dub 04/19/22 15:45 Buttock,Left Gram Stain - Final 04/19/22 15:45 Buttock,Left Wound Culture - Final Low counts mixed probable gastrointestinal microbiota. No further identifications or sensitivities to follow. Medications Administered Current Inpatient Medications Acetaminophen (Acetaminophen 325 Mg Tab) 650 mg PO Q4H PRN PRN Reason: pain/fever Stop: 05/19/22 14:58 Last Admin: 05/03/22 07:59 Dose: 650 mg Ciprofloxacin (Ciprofloxacin 250 Mg Tab) 750 mg PO BID ERAN Stop: 05/06/22 20:59 Last Admin: 05/03/22 08:01 Dose: 750 mg Dextrose (Dextrose 50% 50 Ml Syringe) 25 - 50 ml IV UD PRN; Protocol PRN Reason: Hypoglycemia Protocol Stop: 05/19/22 14:58 Enoxaparin Sodium (Enoxaparin Inj 40 Mg/0.4 Ml Syr) 40 mg SQ Q24H ERAN Stop: 05/19/22 15:14 Last Admin: 05/02/22 16:34 Dose: 40 mg Furosemide (Furosemide 20 Mg Tab) 20 mg PO QAM ERAN Stop: 06/01/22 08:59 Last Admin: 05/03/22 08:01 Dose: 20 mg Glucagon (Glucagon For Inj 1 Mg Vial) 1 mg SQ UD PRN; Protocol PRN Reason: Hypoglycemia Protocol Stop: 05/19/22 14:58 Glucose (Glucose 40% Gel 15 Gm Tube) 15 - 30 gm PO UD PRN; Protocol PRN Reason: Hypoglycemia Protocol Stop: 05/19/22 14:58 Glucose (Glucose 10 Tab/Tube) 4 - 8 tab PO UD PRN; Protocol PRN Reason: Hypoglycemia Treatment Stop: 05/19/22 14:58 Heparin Sodium (Beef Lung) (Heparin 10 Unit/Ml 5 Ml Flush) 5 ml FLUSH PRN PRN PRN Reason: Flush Stop: 05/20/22 01:27 Last Admin: 05/03/22 05:36 Dose: 5 ml Cefazolin Sodium (Ancef 2000mg) 2,000 mg in 15 mls @ 3.75 mls/min IV Q8H ERAN Stop: 05/17/22 21:59 Last Admin: 05/03/22 05:36 Dose: 3.75 mls/min Insulin Aspart (Insulin Aspart Per Unit) 0 units SC ACHS ERAN Stop: 05/28/22 20:59 Last Admin: 05/03/22 08:58 Dose: 9 units Insulin Glargine (Lantus Per Unit Charge) 8 units SQ BID ERAN Stop: 05/31/22 20:59 Last Admin: 05/03/22 08:58 Dose: 8 units Lactobacillus Acidophilus (Advanced Probiotic 1250 Mg Capsule) 2 cap PO DAILY ERAN Stop: 05/20/22 17:44 Last Admin: 05/03/22 08:00 Dose: 2 cap Loperamide HCl (Loperamide Hcl 2 Mg Cap) 2 mg PO Q6H PRN PRN Reason: Diarrhea Stop: 05/24/22 09:44 Last Admin: 05/02/22 09:08 Dose: 2 mg Melatonin (Melatonin 3 Mg Tab) 3 mg PO HS ERAN Stop: 05/25/22 20:59 Last Admin: 05/02/22 20:59 Dose: 3 mg Metoprolol Tartrate (Metoprolol Tartrate 25 Mg Tab) 25 mg PO BID ERAN Stop: 05/19/22 20:59 Last Admin: 05/03/22 08:01 Dose: 25 mg Metronidazole (Metronidazole 500 Mg Tab) 500 mg PO TID ERAN Stop: 05/05/22 23:59 Last Admin: 05/03/22 08:01 Dose: 500 mg Miscellaneous (Carbohydrates For Hypoglycemia ) 15 - 30 gm PO UD PRN PRN Reason: Hypoglycemia Protocol Stop: 05/19/22 14:58 Nystatin (Nystatin Powder 15gm Btl) 1 appln EXT BID [facility] Stop: 05/21/22 20:59 Last Admin: 05/03/22 08:01 Dose: 1 appln Potassium Chloride (Potassium Chloride Crtab 20 Meq Tabcr) 40 meq PO QAM ERAN Stop: 05/25/22 08:59 Last Admin: 05/03/22 08:01 Dose: 40 meq Spironolactone (Spironolactone 25 Mg Tab) 50 mg PO DAILY ERAN Stop: 06/01/22 08:59 Last Admin: 05/03/22 08:01 Dose: 50 mg
[2022-05-03] MEDS: LOPERAMIDE HCL 2 MG CAP PO PRN (14:42)
[2022-05-03] MEDS: ENOXAPARIN INJ 40 MG/0.4 ML SYR SQ SCH (16:08)
[2022-05-03] MEDS: MELATONIN 3 MG TAB PO SCH (20:08)
--- NOTE | 2022-05-03 21:58 | Hospitalist Progress Note ---
Date of Service May 03, 2022 Assessment & Plan (1) Pressure ulcers of skin of multiple topographic sites: Plan: Multiple wounds scattered over body - please refer to wound care nurse documentation for full details and photos 04/20/2022 - 5cm x 5cm wound left buttock - large amount of purulent drainage expressed when rolling patient in bed. IV cefepime added to IV daptomycin patient was previously on for MSSA bacteremia. CT obtained that did not show evidence of deep abscess. General surgery consulted for wound debridement; patient underwent debridement in the OR on 04/21. 3cm x 3cm wound left lateral ankle over the malleolus - sloughing tissue pres ent. MRI ordered to evaluate for possible osteomyelitis however patient declined study. Ortho consulted, bedside debridement preformed 04/20. Vascular consult placed by ortho. BLE arterial duplex demonstrates mild diffuse disease BLE. No indications for for vascular surgery intervention. Intra-Op left buttock wound debridement culture shows Enterobacter cloacae ID following. Antibiotics changed to IV cefepime to cover for MSSA and Enterobacter cloacae in wound culture. Flagyl for anaerobic coverage. On discharge to Rehab: -DC Cefepime and Flagyl -Start Cipro 750mg po BID with End of therapy 05/05/22 -Start Cefazolin 2G IV TID with 6 week course through 05/17/22 -Weekly CBC with diff and CMP to patients primary care physician. Wound care following. Wound VAC in place to left lateral ankle and left buttock wounds. Waffle boots ordered for ankle offloading. (2) MSSA bacteremia: Plan: Diagnosed during previous admission, currently on IV cefepime. Patient declined JILLIAN to evaluate for endocarditis during previous admission however patient is now agreeable. Patient underwent EGD to evaluate for varices prior to JILLIAN. EGD shows grade 1, small esophageal varices, okay to proceed with JILLIAN. Cardiology was consulted for JILLIAN JILLIAN this morning showed vegetation on the aortic valve as per my discussion with cardiology ID on board Recommended therapy with IV Cefazolin 2g q8h to complete a total of 6 weeks course ( end therapy 05/17/22) Starting on Cipro 750mg po BID with End of therapy 05/05/22 as per ID Continue with Flagyl through 05/05/22 as per ID Obtain weekly CBC, CMP and ESR Follow-up with ID Dr. Ellis Diarrhea Negative C. difficile on 11/25 Seems to be improving Urinary retention Resolved. TOV successful on 04/24. Hypoxia Resolved Intermittent hypoxia noted, patient briefly required 1-2L Continue on Lasix; spironolactone increased to 100 mg once daily. (3) Generalized weakness: (4) Ambulatory dysfunction: Plan: Patient presenting from home with reports of generalized weakness, ambulatory dysfunction, frequent falls. Recently admitted to [facility] 04/04 through 04/14 after not receiving care for many years and was found to have acute diastolic CHF, aortic stenosis, multiple lower extremity wounds, imaging findings suggestive of cirrhosis, and MSSA bacteremia. PT/OT, case management to assist with placement (5) Type 2 diabetes mellitus: Plan: Hgb A1c 10.5 04/04/2022 Newly diagnosed during previous admission, discharged on metformin Utilize Lantus and NovoLog per protocol while hospitalized (6) Aortic stenosis: (7) Chronic diastolic CHF (congestive heart failure): Plan: Appears euvolemic, continue furosemide and spironolactone Patient to establish with [facility] cardiology (8) Cirrhosis: Plan: Appears compensated Imaging during previous admission suggestive of cirrhosis, no prior history of EGD today shows small, grade 1 esophageal varices Patient to follow with [facility] as an outpatient (9) DVT prophylaxis: Plan: SQ Lovenox Dispositionpatient was discharged home last admission despite being suggested to go to rehab. Patient would need extensive wound care and IV antibiotic. Case management on board. Waiting for placement Admission and Anticipated Discharge Date Admission Date: April 19, 2022 Subjective Pt was seen and examined for follow up Sitting in bed with no acute distress watching TV Pt said that she feels oK Denies any chest pain, palpitation, dizziness and SOB Review of Systems Review of Systems: All systems reviewed & are unremarkable except as noted in Subjective Physical Exam Physical Exam: General- No acute distress Head- atraumatic Eyes- PERRL, EOMI, ENT- oropharynx clear Neck- supple, no JVD Lungs- clear to auscultation Heart- regular rhythm; +murmur Abdomen- normal bowel sounds, soft, nontender Extremities- no calf tenderness, wound vacs in place to left ankle and left buttock Neuro- alert, oriented x 3; PERRL, EOMI; no facial palsy; no dysarthria Skin- warm & dry Results & Data Results & Data ([facility]) Vital Signs (Past 12 Hours) Vital Signs Temp Pulse Resp BP Pulse Ox O2 Del Method 05/03/22 20:06 36.9 C 97 H 18 121/75 94 Room Air 05/03/22 15:26 36.3 C L 90 18 131/78 96 Room Air
[2022-05-04] MEDS: ceFAZolin 2000MG 2,000 MG/15 ML SYR IV SCH ×3 (05:13→20:57)
[2022-05-04] MEDS: METOPROLOL TARTRATE 25 MG TAB PO SCH ×2 (07:49→20:22)
[2022-05-04] MEDS: CIPROFLOXACIN 250 MG TAB PO SCH ×2 (07:49→20:22)
[2022-05-04] MEDS: metroNIDAZOLE 500 MG TAB PO SCH ×3 (07:50→20:23)
[2022-05-04] MEDS: SPIRONOLACTONE 25 MG TAB PO SCH (07:50)
[2022-05-04] MEDS: ADVANCED PROBIOTIC 1250 MG CAPSULE PO SCH (07:50)
[2022-05-04] MEDS: POTASSIUM CHLORIDE CRTAB 20 MEQ TABCR PO SCH (07:51)
[2022-05-04] MEDS: FUROSEMIDE 20 MG TAB PO SCH (07:51)
[2022-05-04] MEDS: NYSTATIN POWDER 15GM BTL EXT SCH ×2 (07:51→20:20)
[2022-05-04] MEDS: ACETAMINOPHEN 325 MG TAB PO PRN ×2 (07:54→20:19)
[2022-05-04] MEDS: LANTUS PER UNIT CHARGE SQ SCH ×2 (09:15→20:53)
[2022-05-04] MEDS: INSULIN ASPART PER UNIT SC SCH ×4 (09:16→20:52)
[2022-05-04] MEDS: ENOXAPARIN INJ 40 MG/0.4 ML SYR SQ SCH (16:11)
[2022-05-04] MEDS: MELATONIN 3 MG TAB PO SCH (20:22)
--- NOTE | 2022-05-04 23:57 | Hospitalist Progress Note ---
Date of Service May 04, 2022 Assessment & Plan (1) Pressure ulcers of skin of multiple topographic sites: Plan: Multiple wounds scattered over body - please refer to wound care nurse documentation for full details and photos 04/20/2022 - 5cm x 5cm wound left buttock - large amount of purulent drainage expressed when rolling patient in bed. IV cefepime added to IV daptomycin patient was previously on for MSSA bacteremia. CT obtained that did not show evidence of deep abscess. General surgery consulted for wound debridement; patient underwent debridement in the OR on 04/21. 3cm x 3cm wound left lateral ankle over the malleolus - sloughing tissue pres ent. MRI ordered to evaluate for possible osteomyelitis however patient declined study. Ortho consulted, bedside debridement preformed 04/20. Vascular consult placed by ortho. BLE arterial duplex demonstrates mild diffuse disease BLE. No indications for for vascular surgery intervention. Intra-Op left buttock wound debridement culture shows Enterobacter cloacae ID following. Antibiotics changed to IV cefepime to cover for MSSA and Enterobacter cloacae in wound culture. Flagyl for anaerobic coverage. On discharge to Rehab: -DC Cefepime and Flagyl -Start Cipro 750mg po BID with End of therapy 05/05/22 -Start Cefazolin 2G IV TID with 6 week course through 05/17/22 -Weekly CBC with diff and CMP to patients primary care physician. Wound care following. Wound VAC in place to left lateral ankle and left buttock wounds. Waffle boots ordered for ankle offloading. (2) MSSA bacteremia: Plan: Diagnosed during previous admission, currently on IV cefepime. Patient declined JILLIAN to evaluate for endocarditis during previous admission however patient is now agreeable. Patient underwent EGD to evaluate for varices prior to JILLIAN. EGD shows grade 1, small esophageal varices, okay to proceed with JILLIAN. Cardiology was consulted for JILLIAN JILLIAN this morning showed vegetation on the aortic valve as per my discussion with cardiology ID on board Recommended therapy with IV Cefazolin 2g q8h to complete a total of 6 weeks course ( end therapy 05/17/22) Starting on Cipro 750mg po BID with End of therapy 05/05/22 as per ID Continue with Flagyl through 05/05/22 as per ID Obtain weekly CBC, CMP and ESR Follow-up with ID Dr. Ellis Diarrhea Negative C. difficile on 11/25 Seems to be improving Urinary retention Resolved. TOV successful on 04/24. Hypoxia Resolved Intermittent hypoxia noted, patient briefly required 1-2L Continue on Lasix; spironolactone increased to 100 mg once daily. (3) Generalized weakness: (4) Ambulatory dysfunction: Plan: Patient presenting from home with reports of generalized weakness, ambulatory dysfunction, frequent falls. Recently admitted to [facility] 04/04 through 04/14 after not receiving care for many years and was found to have acute diastolic CHF, aortic stenosis, multiple lower extremity wounds, imaging findings suggestive of cirrhosis, and MSSA bacteremia. PT/OT, case management to assist with placement (5) Type 2 diabetes mellitus: Plan: Hgb A1c 10.5 04/04/2022 Newly diagnosed during previous admission, discharged on metformin Utilize Lantus and NovoLog per protocol while hospitalized (6) Aortic stenosis: (7) Chronic diastolic CHF (congestive heart failure): Plan: Appears euvolemic, continue furosemide and spironolactone Patient to establish with [facility] cardiology (8) Cirrhosis: Plan: Appears compensated Imaging during previous admission suggestive of cirrhosis, no prior history of EGD today shows small, grade 1 esophageal varices Patient to follow with [facility] as an outpatient (9) DVT prophylaxis: Plan: SQ Lovenox Dispositionpatient was discharged home last admission despite being suggested to go to rehab. Patient would need extensive wound care and IV antibiotic. Case management on board. Waiting for placement Admission and Anticipated Discharge Date Admission Date: April 19, 2022 Subjective Pt was seen and examined for follow up Sitting in chair with no acute distress watching TV Denies any chest pain, palpitation, dizziness and SOB Review of Systems Review of Systems: All systems reviewed & are unremarkable except as noted in Subjective Physical Exam Physical Exam: General- No acute distress Head- atraumatic Eyes- PERRL, EOMI, ENT- oropharynx clear Neck- supple, no JVD Lungs- clear to auscultation Heart- regular rhythm; +murmur Abdomen- normal bowel sounds, soft, nontender Extremities- no calf tenderness, wound vacs in place to left ankle and left buttock Neuro- alert, oriented x 3; PERRL, EOMI; no facial palsy; no dysarthria Skin- warm & dry Results & Data Results & Data ([facility]) Vital Signs (Past 12 Hours) Vital Signs Temp Pulse Resp BP Pulse Ox O2 Del Method 05/04/22 20:26 36.5 C 102 H 18 129/67 94 Room Air 05/04/22 14:35 36.4 C L 89 16 114/64 96 Room Air
[2022-05-05] MEDS: ceFAZolin 2000MG 2,000 MG/15 ML SYR IV SCH ×3 (05:53→21:03)
[2022-05-05] MEDS: CIPROFLOXACIN 250 MG TAB PO SCH ×2 (09:13→21:01)
[2022-05-05] MEDS: POTASSIUM CHLORIDE CRTAB 20 MEQ TABCR PO SCH (09:14)
[2022-05-05] MEDS: ADVANCED PROBIOTIC 1250 MG CAPSULE PO SCH (09:14)
[2022-05-05] MEDS: SPIRONOLACTONE 25 MG TAB PO SCH (09:14)
[2022-05-05] MEDS: FUROSEMIDE 20 MG TAB PO SCH (09:14)
[2022-05-05] MEDS: metroNIDAZOLE 500 MG TAB PO SCH ×3 (09:15→21:03)
[2022-05-05] MEDS: METOPROLOL TARTRATE 25 MG TAB PO SCH ×2 (09:15→21:02)
[2022-05-05] MEDS: NYSTATIN POWDER 15GM BTL EXT SCH ×2 (09:16→21:00)
[2022-05-05] MEDS: LANTUS PER UNIT CHARGE SQ SCH ×2 (09:26→20:59)
[2022-05-05] MEDS: INSULIN ASPART PER UNIT SC SCH ×4 (09:27→20:59)
--- NOTE | 2022-05-05 16:56 | Hospitalist Progress Note ---
Date of Service May 05, 2022 Assessment & Plan (1) Pressure ulcers of skin of multiple topographic sites: Plan: Multiple wounds scattered over body - please refer to wound care nurse documentation for full details and photos 04/20/2022 - 5cm x 5cm wound left buttock - large amount of purulent drainage expressed when rolling patient in bed. IV cefepime added to IV daptomycin patient was previously on for MSSA bacteremia. CT obtained that did not show evidence of deep abscess. General surgery consulted for wound debridement; patient underwent debridement in the OR on 04/21. 3cm x 3cm wound left lateral ankle over the malleolus - sloughing tissue pres ent. MRI ordered to evaluate for possible osteomyelitis however patient declined study. Ortho consulted, bedside debridement preformed 04/20. Vascular consult placed by ortho. BLE arterial duplex demonstrates mild diffuse disease BLE. No indications for for vascular surgery intervention. Intra-Op left buttock wound debridement culture shows Enterobacter cloacae ID following. Antibiotics changed to IV cefepime to cover for MSSA and Enterobacter cloacae in wound culture. Flagyl for anaerobic coverage. On discharge to Rehab: -DC Cefepime and Flagyl -Started Cipro 750mg po BID with End of therapy 05/05/22- plan to complete today -Continue Cefazolin 2G IV TID with 6 week course through 05/17/22 -Weekly CBC with diff and CMP to patients primary care physician. Wound care following. Wound VAC in place to left lateral ankle and left buttock wounds. Waffle boots ordered for ankle offloading. (2) MSSA bacteremia: Plan: Diagnosed during previous admission, currently on IV cefepime. Patient declined JILLIAN to evaluate for endocarditis during previous admission however patient is now agreeable. Patient underwent EGD to evaluate for varices prior to JILLIAN. EGD shows grade 1, small esophageal varices, okay to proceed with JILLIAN. Cardiology was consulted for JILLIAN JILLIAN this morning showed vegetation on the aortic valve as per my discussion with cardiology ID on board Recommended therapy with IV Cefazolin 2g q8h to complete a total of 6 weeks course ( end therapy 05/17/22) Will complete Cipro 750mg po BID with End of therapy 05/05/22( Today) as per ID Will complete Flagyl through 05/05/22 (today) as per ID Obtain weekly CBC, CMP and ESR Follow-up with ID Dr. Stainbrook Diarrhea Negative C. difficile on 04/23 Seems to be improving Urinary retention Resolved. TOV successful on 04/24. Hypoxia Resolved Intermittent hypoxia noted, patient briefly required 1-2L Continue on Lasix; spironolactone increased to 100 mg once daily. (3) Generalized weakness: (4) Ambulatory dysfunction: Plan: Patient presenting from home with reports of generalized weakness, ambulatory dysfunction, frequent falls. Recently admitted to [facility] 04/04 through 04/14 after not receiving care for many years and was found to have acute diastolic CHF, aortic stenosis, multiple lower extremity wounds, imaging findings suggestive of cirrhosis, and MSSA bacteremia. PT/OT, case management to assist with placement (5) Type 2 diabetes mellitus: Plan: Hgb A1c 10.5 04/04/2022 Newly diagnosed during previous admission, discharged on metformin Utilize Lantus and NovoLog per protocol while hospitalized (6) Aortic stenosis: (7) Chronic diastolic CHF (congestive heart failure): Plan: Appears euvolemic, continue furosemide and spironolactone Patient to establish with [facility] cardiology (8) Cirrhosis: Plan: Appears compensated Imaging during previous admission suggestive of cirrhosis, no prior history of EGD today shows small, grade 1 esophageal varices Patient [facility] as an [facility] (9) DVT prophylaxis: Plan: SQ Lovenox Dispositionpatient was discharged home last admission despite being suggested to go to rehab. Patient would need extensive wound care and IV antibiotic. Case management on board. Waiting for placement Admission and Anticipated Discharge Date Admission Date: April 19, 2022 Subjective Pt was seen and examined for follow up Sitting in chair with no acute distress watching TV She said that she feels fine case management is working to find her placement Denies any chest pain, palpitation, dizziness and SOB Review of Systems Review of Systems: All systems reviewed & are unremarkable except as noted in Subjective Physical Exam Physical Exam: General- No acute distress Head- atraumatic Eyes- PERRL, EOMI, ENT- oropharynx clear Neck- supple, no JVD Lungs- clear to auscultation Heart- regular rhythm; +murmur Abdomen- normal bowel sounds, soft, nontender Extremities- no calf tenderness, wound vacs in place to left ankle and left buttock Neuro- alert, oriented x 3; PERRL, EOMI; no facial palsy; no dysarthria Skin- warm & dry Results & Data Results & Data ([facility]) Vital Signs (Past 12 Hours) Vital Signs Temp Pulse Pulse Resp BP Pulse Ox O2 Del Method 05/05/22 14:48 36.4 C L 85 16 118/75 95 Room Air 05/05/22 09:19 95 H 114/66 93 Room Air 05/05/22 07:32 36.3 C L 89 16 119/76 96 Room Air
[2022-05-05] MEDS: ENOXAPARIN INJ 40 MG/0.4 ML SYR SQ SCH (17:10)
[2022-05-05] MEDS: MELATONIN 3 MG TAB PO SCH (21:01)
[2022-05-05] MEDS: ACETAMINOPHEN 325 MG TAB PO PRN (23:16)
[2022-05-06] MEDS: ceFAZolin 2000MG 2,000 MG/15 ML SYR IV SCH ×3 (05:33→23:12)
[2022-05-06] MEDS: ADVANCED PROBIOTIC 1250 MG CAPSULE PO SCH (08:40)
[2022-05-06] MEDS: FUROSEMIDE 20 MG TAB PO SCH (08:40)
[2022-05-06] MEDS: METOPROLOL TARTRATE 25 MG TAB PO SCH ×2 (08:40→20:17)
[2022-05-06] MEDS: CIPROFLOXACIN 250 MG TAB PO SCH (08:40)
[2022-05-06] MEDS: POTASSIUM CHLORIDE CRTAB 20 MEQ TABCR PO SCH (08:41)
[2022-05-06] MEDS: SPIRONOLACTONE 25 MG TAB PO SCH (08:41)
[2022-05-06] MEDS: NYSTATIN POWDER 15GM BTL EXT SCH ×2 (08:41→20:32)
[2022-05-06] MEDS: INSULIN ASPART PER UNIT SC SCH ×4 (09:43→20:27)
[2022-05-06] MEDS: LANTUS PER UNIT CHARGE SQ SCH ×2 (09:44→20:28)
--- NOTE | 2022-05-06 12:26 | Hospitalist Progress Note ---
Date of Service May 06, 2022 Assessment & Plan (1) Pressure ulcers of skin of multiple topographic sites: Plan: Multiple wounds scattered over body - please refer to wound care nurse documentation for full details and photos 04/20/2022 - 5cm x 5cm wound left buttock - large amount of purulent drainage expressed when rolling patient in bed. IV cefepime added to IV daptomycin patient was previously on for MSSA bacteremia. CT obtained that did not show evidence of deep abscess. General surgery consulted for wound debridement; patient underwent debridement in the OR on 04/21. 3cm x 3cm wound left lateral ankle over the malleolus - sloughing tissue pres ent. MRI ordered to evaluate for possible osteomyelitis however patient declined study. Ortho consulted, bedside debridement preformed 04/20. Vascular consult placed by ortho. BLE arterial duplex demonstrates mild diffuse disease BLE. No indications for for vascular surgery intervention. Intra-Op left buttock wound debridement culture shows Enterobacter cloacae ID following. Antibiotics changed to IV cefepime to cover for MSSA and Enterobacter cloacae in wound culture. Flagyl for anaerobic coverage. On discharge to Rehab: -DC Cefepime and Flagyl -Started Cipro 750mg po BID - completed therapy on 05/05/22 -Continue Cefazolin 2G IV TID with 6 week course through 05/17/22 -Weekly CBC with diff and CMP to patients primary care physician. Wound care following. Wound VAC in place to left lateral ankle and left buttock wounds. Waffle boots ordered for ankle offloading. (2) MSSA bacteremia: Plan: Diagnosed during previous admission, currently on IV cefepime. Patient declined JILLIAN to evaluate for endocarditis during previous admission however patient is now agreeable. Patient underwent EGD to evaluate for varices prior to JILLIAN. EGD shows grade 1, small esophageal varices, okay to proceed with JILLIAN. Cardiology was consulted for JILLIAN JILLIAN this morning showed vegetation on the aortic valve as per my discussion with cardiology ID on board Recommended therapy with IV Cefazolin 2g q8h to complete a total of 6 weeks course (end therapy 05/17/22) Will complete Cipro 750mg po BID with end of therapy 05/05/22 Will complete Flagyl through 05/05/22 Obtain weekly CBC, CMP and ESR Follow-up with ID Dr. Ellis Diarrhea Negative C. difficile on 04/23 Seems to be improving Urinary retention Resolved TOV successful on 04/24 Hypoxia Resolved Intermittent hypoxia noted, patient briefly required 1-2L Continue on Lasix; spironolactone increased to 100 mg once daily. (3) Generalized weakness: (4) Ambulatory dysfunction: Plan: Patient presenting from home with reports of generalized weakness, ambulatory dysfunction, frequent falls. Recently admitted to [facility] 04/04 through 04/14 after not receiving care for many years and was found to have acute diastolic CHF, aortic stenosis, multiple lower extremity wounds, imaging findings suggestive of cirrhosis, and MSSA bacteremia. PT/OT, case management to assist with placement (5) Type 2 diabetes mellitus: Plan: Hgb A1c 10.5 04/04/2022 Newly diagnosed during previous admission, discharged on metformin Utilize Lantus and NovoLog per protocol while hospitalized (6) Aortic stenosis: (7) Chronic diastolic CHF (congestive heart failure): Plan: Appears euvolemic, continue furosemide and spironolactone Patient to establish with [facility] cardiology (8) Cirrhosis: Plan: Appears compensated Imaging during previous admission suggestive of cirrhosis, no prior history of EGD today shows small, grade 1 esophageal varices Patient to follow with [facility] as an outpatient (9) DVT prophylaxis: Plan: SQ Lovenox Dispositionpatient was discharged home last admission despite being suggested to go to rehab. Patient would need extensive wound care and IV antibiotic. Case management on board. Waiting for placement Admission and Anticipated Discharge Date Admission Date: April 19, 2022 Supervising Physician Co-Signing Physician Notes Patient seen and examined independently. She is sitting on the chair side of the bed in no apparent discomfort. She denies fever, chills, chest pain, abdominal pain, diarrhea or urinary symptoms. She completed course of of antibiotic for sacral wound yesterday. She is on IV cefazolin 2 g every 8 hour to be completed on 05/17/2022. airfield manager on board for placement. Discharge when placement is available. Subjective Pt was seen and examined for follow up. Sitting in chair with no acute distress watching TV. Denies any changes overnight. Case management is working to find her placement. Denies fever, chills, lightheadedness, headache, chest pain, palpitations or SOB. Review of Systems Review of Systems: At least ten systems reviewed and negative except as noted in the HPI. Physical Exam Physical Exam: Gen- WD/WN, NAD, sitting in bedside chair, A&Ox3 HEENT- Normocephalic, atraumatic, conjunctivae moist, sclerae anicteric, mucous membranes moist Lung- Clear to Auscultation bilaterally, no wheezes/rales/rhonchi Heart- regular rhythm; + murmur Abdomen- normal bowel sounds, soft, nontender Extremities- no calf tenderness, + wound vacs in place, draining Neuro- alert, oriented x 3; PERRL, EOMI; no facial palsy; no dysarthria Skin- warm & dry Results & Data Results & Data ([facility]) Vital Signs (Past 12 Hours) Vital Signs Temp Pulse Resp BP Pulse Ox O2 Del Method 05/06/22 07:06 36.4 C L 87 16 124/74 95 Room Air
[2022-05-06] MEDS: ENOXAPARIN INJ 40 MG/0.4 ML SYR SQ SCH (15:06)
[2022-05-06] MEDS ORDERED: MAGNESIUM HYDROXIDE SUSP 30 ML UDC PO ONE (16:09)
[2022-05-06] MEDS ORDERED: POLYETHYLENE (MIRALAX) 17 GM PACK PO PRN (16:13)
[2022-05-06] MEDS: ACETAMINOPHEN 325 MG TAB PO PRN (20:16)
[2022-05-06] MEDS: MELATONIN 3 MG TAB PO SCH (20:16)
[2022-05-07] MEDS: ceFAZolin 2000MG 2,000 MG/15 ML SYR IV SCH ×3 (05:19→22:18)
[2022-05-07 07:43] LABS: Basophils # (auto) 0.12 K/uL (0-0.2); Basophils % (auto) 1.5 %; Eosinophils # (auto) 0.37 K/uL (0-0.50); Eosinophils % (auto) 4.8 %; Hematocrit (blood only) 37.1 % (34.1-44.9); Hemoglobin 12.5 g/dl (12.0-16.0); Immature Granulocytes # (auto) 0.02 K/uL (0.00-0.02); Immature Granulocytes % (auto) 0.3 %; Lymphocytes # (auto) 3.11 K/uL (1.2-3.4); Mean Corpuscular Hemoglobin 31.2 pg (25.0-34.0); Mean Corpuscular Hgb Conc 33.7 g/dL (32.0-36.0); Mean Corpuscular Volume 92.5 fL (80.0-100.0); Mean Platelet Volume 10.1 fL (9.4-12.3); Monocytes % (auto) 5.1 %; Neutrophils # (auto) 3.75 K/uL (1.4-6.5); Neutrophils % (auto) 48.3 %; Platelet Count 219 K/uL (130-400); RDW Coefficient of Variation 15.8 % (11.5-14.5); RDW Standard Deviation 54.3 fL (36.4-46.3); Red Blood Count 4.01 M/uL (3.93-5.22); White Blood Count 7.77 K/ul (4.8-10.8)
[2022-05-07 08:13] LABS: BUN Creatinine Ratio 50.7 (10-20); Calcium 9.6 mg/dl (8.5-10.1); Creatinine Clr Calc Pharmacy 106.6 ml/min; Est GFR (African American) 108.9 ml/min; Potassium 4.5 mmol/L (3.5-5.1)
[2022-05-07] MEDS: FUROSEMIDE 20 MG TAB PO SCH (08:29)
[2022-05-07] MEDS: ADVANCED PROBIOTIC 1250 MG CAPSULE PO SCH (08:29)
[2022-05-07] MEDS: POTASSIUM CHLORIDE CRTAB 20 MEQ TABCR PO SCH (08:29)
[2022-05-07] MEDS: SPIRONOLACTONE 25 MG TAB PO SCH (08:29)
[2022-05-07] MEDS: NYSTATIN POWDER 15GM BTL EXT SCH ×2 (08:30→21:01)
[2022-05-07] MEDS: METOPROLOL TARTRATE 25 MG TAB PO SCH ×2 (08:30→21:00)
[2022-05-07] MEDS: LANTUS PER UNIT CHARGE SQ SCH ×2 (09:21→22:09)
[2022-05-07] MEDS: INSULIN ASPART PER UNIT SC SCH ×4 (09:21→22:09)
--- NOTE | 2022-05-07 13:16 | Hospitalist Progress Note ---
Date of Service May 07, 2022 Assessment & Plan (1) Pressure ulcers of skin of multiple topographic sites: Plan: Multiple wounds scattered over body - please refer to wound care nurse documentation for full details and photos 04/20/2022 - 5cm x 5cm wound left buttock - large amount of purulent drainage expressed when rolling patient in bed. IV cefepime added to IV daptomycin patient was previously on for MSSA bacteremia. CT obtained that did not show evidence of deep abscess. General surgery consulted for wound debridement; patient underwent debridement in the OR on 04/21. 3cm x 3cm wound left lateral ankle over the malleolus - sloughing tissue pres ent. MRI ordered to evaluate for possible osteomyelitis however patient declined study. Ortho consulted, bedside debridement preformed 04/20. Vascular consult placed by ortho. BLE arterial duplex demonstrates mild diffuse disease BLE. No indications for for vascular surgery intervention. Intra-Op left buttock wound debridement culture shows Enterobacter cloacae ID following. Antibiotics changed to IV cefepime to cover for MSSA and Enterobacter cloacae in wound culture. Flagyl for anaerobic coverage. On discharge to Rehab: -DC Cefepime and Flagyl -Started Cipro 750mg po BID - completed therapy on 05/05/22 -Continue Cefazolin 2G IV TID with 6 week course through 05/17/22 -Weekly CBC with diff and CMP to patients primary care physician. Wound care following. Wound VAC in place to left lateral ankle and left buttock wounds. Waffle boots ordered for ankle offloading. (2) MSSA bacteremia: Plan: Diagnosed during previous admission, currently on IV cefepime. Patient declined JILLIAN to evaluate for endocarditis during previous admission however patient is now agreeable. Patient underwent EGD to evaluate for varices prior to JILLIAN. EGD shows grade 1, small esophageal varices, okay to proceed with JILLIAN. Cardiology was consulted for JILLIAN JILLIAN this morning showed vegetation on the aortic valve as per my discussion with cardiology ID on board Recommended therapy with IV Cefazolin 2g q8h to complete a total of 6 weeks course (end therapy 05/17/22) Will complete Cipro 750mg po BID with end of therapy 05/05/22 Will complete Flagyl through 05/05/22 Obtain weekly CBC, CMP and ESR Follow-up with ID Dr. Ellis Diarrhea Negative C. difficile on 04/23 Seems to be improving Urinary retention Resolved TOV successful on 04/24 Hypoxia Resolved Intermittent hypoxia noted, patient briefly required 1-2L Continue on Lasix; spironolactone increased to 100 mg once daily. (3) Generalized weakness: (4) Ambulatory dysfunction: Plan: Patient presenting from home with reports of generalized weakness, ambulatory dysfunction, frequent falls. Recently admitted to [facility] 04/04 through 04/14 after not receiving care for many years and was found to have acute diastolic CHF, aortic stenosis, multiple lower extremity wounds, imaging findings suggestive of cirrhosis, and MSSA bacteremia. PT/OT, case management to assist with placement (5) Type 2 diabetes mellitus: Plan: Hgb A1c 10.5 04/04/2022 Newly diagnosed during previous admission, discharged on metformin Utilize Lantus and NovoLog per protocol while hospitalized (6) Aortic stenosis: (7) Chronic diastolic CHF (congestive heart failure): Plan: Appears euvolemic, continue furosemide and spironolactone Patient to establish with [facility] cardiology (8) Cirrhosis: Plan: Appears compensated Imaging during previous admission suggestive of cirrhosis, no prior history of EGD today shows small, grade 1 esophageal varices [facility] (9) DVT prophylaxis: Plan: SQ Lovenox Dispositionpatient was discharged home last admission despite being suggested to go to rehab. Patient would need extensive wound care and IV antibiotic. Case management on board. Waiting for placement Admission and Anticipated Discharge Date Admission Date: April 19, 2022 Supervising Physician Co-Signing Physician Notes Patient seen and examined independently. She is sitting on the chair side of the bed in no apparent discomfort. She denies fever, chills, chest pain, abdominal pain, diarrhea or urinary symptoms. Wound VAC in place and working well. Awaiting placement. Patient is medically ready to get discharged. Subjective Pt was seen and examined for follow up. Sitting in chair withno acute distress watching TV. Denies any changes overnight. Had a bowel movement this morning. Case management is working to find her placement and updated daughter yesterday. Patient updated as well. Denies fever, chills, lightheadedness, headache, chest pain, palpitations or SOB. Review of Systems Review of Systems: At least ten systems reviewed and negative except as noted in the HPI. Physical Exam Physical Exam: Gen- WD/WN, NAD, sitting in bedside chair, A&Ox3 HEENT- Normocephalic, atraumatic, conjunctivae moist, sclerae anicteric, mucous membranes moist Lung- Clear to Auscultation bilaterally, no wheezes/rales/rhonchi Heart- regular rhythm; + murmur Abdomen- normal bowel sounds, soft, nontender Extremities- no calf tenderness, + wound vacs in place, draining Neuro- alert, oriented x 3; PERRL, EOMI; no facial palsy; no dysarthria Skin- warm & dry Results & Data Results & Data ([facility]) Vital Signs (Past 12 Hours) Vital Signs Temp Pulse Resp BP Pulse Ox O2 Del Method 05/07/22 07:30 Room Air 05/07/22 07:04 36.4 C L 95 H 16 122/75 94 Room Air Laboratory Results Short CBC 05/07/22 Range/Units 07:20 WBC 7.77 (4.8-10.8) K/ul Hgb 12.5 (12.0-16.0) g/dl Hct 37.1 (34.1-44.9) % Plt Count 219 (130-400) K/uL BMP 05/07/22 07:20 Sodium 134 L Potassium 4.5 Chloride 101 Carbon Dioxide 27 BUN 35 H Creatinine 0.69 Glucose 171 H Calcium 9.6 Diagnostic Findings Chest X-Ray 04/19/22 11:24 XR chest 1V portable CLINICAL HISTORY: generalized weakness; check PICC line placement COMPARISON STUDY: Chest CT April 04, 2022. Chest radiograph April 05, 2022. FINDINGS: Right PICC is appropriately positioned. Tip projects over the cavoatrial junction. There is no pneumothorax or pleural effusion. Cardiomegaly is unchanged. Interstitial thickening and bilateral opacities are noted. These have improved since prior exam. IMPRESSION: 1. Appropriately positioned right PICC. Tip projects over the cavoatrial junction. 2. Persistent, but improved, interstitial thickening and bilateral airspace opacities. ACT 112: Negative or not required by law. Electronically signed by: Cruz Berman M.D. 04/19/2022 12:[address] 04/20/22 09:53 CT pelvis w/IV con only HISTORY: 61 years-old Female left buttock wound, eval for abscess patient presents with wound of the left buttock COMPARISON: 04/04/2022 TECHNIQUE: Axial CT images of the pelvis were obtained following the intravenous administration of 94 mL Optiray 350. A dose lowering technique was used consistent with the principals of DMITRIY. FINDINGS: Marginal nodularity of the liver is redemonstrated suspicious for cirrhosis. No hepatic mass identified. Nonspecific gallbladder wall thickening. Atherosclerosis of the aorta without aneurysm. Calcified pelvic lymph nodes are redemonstrated. 4 mm nonobstructing calculus of the inferior pole left kidney. Decompressed urinary bladder with Lozano catheter in place. Postmenopausal endometrium appears to be mildly thickened. No bowel obstruction or bowel wall thickening. Moderate colonic fecal retention. Normal appendix. Small fat filled periumbilical hernia, diastases of 2.7 cm. There is a large left buttock soft tissue wound measuring approximately 3.8 cm transversely. There is a large amount of air and/or packing material extending into the wound into the proximal left thigh. This is most pronounced medially however air and inflammatory stranding tracks into the hamstring and abductor musculature. No drainable fluid collection. Degenerative changes of the spine, pelvis and hips. No acute fracture. No destructive bone lesion. IMPRESSION: 1. Large left buttock ulcer with inflammatory stranding and deep tissue gas. Fin dings may be secondary to recent intervention, however should be correlated clinically to exclude fasciitis. Additionally, there is evidence of associated cellulitis with myositis. No drainable fluid collection. 2. No bowel obstruction or bowel wall thickening. 3. Left nephrolithiasis. 4. Nonspecific gallbladder wall thickening. Findings could be correlated with ultrasound. 5. Additional findings as above. ACT 112: Negative or not required by law. The above report was generated using voice recognition software. It may contain grammatical, syntax or spelling errors. Electronically signed by: Michael Rodriguez M.D. 04/20/2022 3:01 PM Ankle MRI 04/20/22 09:58 MR ankle LT wo con CLINICAL HISTORY: 61 years-old Female with left lateral ankle wound, eval for osteo. Chronic pain of the left ankle COMPARISON: Left ankle radiographs of same day TECHNIQUE: Trainmaster localizer MR images of the left ankle were performed without contrast. No additional images were obtained. FINDINGS/IMPRESSION: Limited software sales executive images were obtained. The patient decided to abort the study. No diagnostic images were obtained. The patient will not be charged for this exam. ACT 112: Negative or not required by law. The above report was generated using voice recognition software. It may contain grammatical, syntax or spelling errors. Electronically signed by: Michael Rodriguez M.D. 04/20/2022 1:52 PM Ankle X-Ray 04/20/22 10:20 LEFT ANKLE 3 VIEWS CLINICAL HISTORY: Wound. FINDINGS: 3 views of the left ankle are correlated with CT scan of the left tibia and fibula dated 04/04/2022. The skeletal structures are osteopenic. No fracture is seen. There is no bony erosion or periostitis. The ankle mortise is intact. No joint effusion is identified. There is a large plantar heel spur. Degenerative spurring is seen along the dorsal aspect of the tarsal bones. Soft tissue edema is present throughout the left lower extremity. There is advanced atherosclerotic calcification of the regional arteries. Phleboliths are noted in the calf. No soft tissue gas is seen. IMPRESSION: 1. Soft tissue swelling with no acute bony abnormality identified. 2. Osteopenia with degenerative change and a large heel spur as above. Electronically signed by: Israel Johnson M.D. 04/20/2022 12:24 PM Duplex Scan Lower Extremity Artery 04/20/22 14:59 US arterial duplex LE BI HISTORY: 61 years-old Female non healing wounds chronic nonhealing wounds of the lower extremities COMPARISON: None TECHNIQUE: Multiple real-time sonographic images of the lower extremity arterial structures were obtained assessing grayscale appearance, color and spectral flow FINDINGS: RIGHT: Triphasic waveforms within the common femoral, superficial femoral and anterior tibial arteries with monophasic waveforms extending from the popliteal artery into the lower leg. No arterial occlusion or significantly elevated peak systolic velocities within the right lower extremity. Atherosclerotic plaque is noted. LEFT: Triphasic waveforms within the common femoral, superficial femoral and anterior tibial arteries with monophasic waveforms extending from the popliteal artery into the lower leg. No arterial occlusion or significantly elevated peak systolic velocities within the left lower extremity. Atherosclerotic plaque is noted. Distal portions of the anterior tibial, peroneal, posterior tibial and dorsalis pedis arteries aren't able to be visualized secondary to overlying bandages. ABIs were also unable to be obtained secondary to these same reasons. IMPRESSION: 1. No arterial occlusion or significantly elevated peak systolic velocities identified to suggest high-grade stenosis. 2. Limited exam as above. 3. Monophasic waveforms of the lower legs. ACT 112: Negative or not required by law. The above report was generated using voice recognition software. It may contain grammatical, syntax or spelling errors. Electronically signed by: Michael Rodriguez M.D. 04/21/2022 9:12 AM Chest X-Ray 04/20/22 15:38 XR chest 1V portable CLINICAL HISTORY: hypoxia COMPARISON STUDY: Chest CT April 04, 2022. Chest radiograph April 19, 2022. FINDINGS: Right PICC is in place. No pneumothorax or pleural effusion is present. Cardiomegaly is unchanged. Patient is rotated. Interstitial thickening is again noted. Linear bilateral opacities persist. There is no lobar consolidation. IMPRESSION: 1. Cardiomegaly. Mild interstitial thickening. This may reflect pulmonary vascular congestion without overt pulmonary edema. 2. Linear bilateral opacities which favor atelectasis. An infectious process could appear similar although is considered less likely. ACT 112: Negative or not required by law. Electronically signed by: Cruz Berman M.D. 04/20/2022 5:03 PM
--- NOTE | 2022-05-07 13:18 | Infectious Disease Progress Nt ---
Date of Service May 07, 2022 Assessment & Plan (1) Pressure ulcers of skin of multiple topographic sites: (2) MSSA bacteremia: Plan: She was discharged on IV Cefazolin with plans for 6 week course through 05/07/22. (04/06-05/07) but changed to Daptomycin on discharge (I suspect d/t dosing ease but I dont see notation of this and patient unable to tell me). (3) Wound of left buttock: (4) Aortic valve endocarditis: Plan 61 yo female with PMH chronic diastolic CHF, aortic stenosis, DM type II, liver cirrhosis, recent admission after fall found to have MSSA bacteremia on Daptomycin therapy who was readmitted to [facility] on 04/20 for worsening sacral and LE wound. ID consulted for antibiotic management. Prior admission with MSSA bacteremia, Please see HPI for further details. TTE showed mod-severe aortic stenosis and low normal EF 50-55%. At that time no signs of MSSA seeding other locations--mental status has improved, has good joint ROM, no focal pains. Repeat blood cultures from 04/06 are negative. She refused at JILLIAN then and decision by ID was to extend her x 6 weeks through 05/17. Patient admitted with LE wounds. CT showed Large left buttock ulcer with inflammatory stranding and deep tissue gas. w/ cellulitis with myositis. No drainable fluid collection. MRI of ankle ordered but stopped and not completed (notes state patient aborted study) . 04/20 Xray L ankle negative for gas or osteomyelitis. 04/20 Arterial dopplers of LE showed no significant stenosis. Patient was started on IV Daptomycin (continued) and Given Cefepime but changed to Zosyn. 04/21 Went to OR for sacral debridement. Findings "There was necrotic tissue, fibrinous exudate, purulent fluid extending all the way to the bone." OR cultures are growing E. Cloacae (S: Cefepime, Zosyn, Cipro) ECG reviewed and QTc <500 She underwent EGD then JILLIAN on 04/29/22 showed small mobile echodensity adherent to the of R coronary AV cusp. mild valvular aortic stenosis. 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 She is about 4 weeks of completed therapy. Size of echodenisty not mentioned but noted to be small. No CHF and valve remains function with mild . She has no other apparent sites of seeding and denies hardware. The duration of therapy for uncomplicated left-sided staphylococcal IE is six weeks. I would recommend close follow up with Cardiology regarding her . At this time does not appear to meet criteria for surgery: No apparent IE-associated valve dysfunction, extension of infection, signs of heart failure. MSSA has cleared and is being treated with Cefazolin For wound infection she has been treated with Cipro/flagyl through 05/05/22 Recommend: For klawock AV endocarditis, recommend:-MSSA therapy with Cefazolin will be to 05/17/22, 6 weeks from first negative blood culture Will d/w Dr. Blake Please page me with any questions. Id will follow peripherally while inpatient. Kimberly Gunn MD [facility], [facility] Connect Admission and Anticipated Discharge Date Admission Date: April 19, 2022 Subjective This patient recommendation is based on a telemedicine consult request which was completed asynchronously through chart review and information provided by the primary physician. The patient was not seen or examined today. The evaluation is consultative in nature and all patient care and treatment decisions can either be accepted or rejected by the patient's primary hospital-based treating physician using their own independent medical judgment for their patient. Results & Data ([facility]) Vital Signs (Past 12 Hours) Vital Signs Temp Pulse Resp BP Pulse Ox O2 Del Method 05/07/22 07:30 Room Air 05/07/22 07:04 36.4 C L 95 H 16 122/75 94 Room Air Laboratory Results Laboratory Results - last 48 hr 05/05/22 05/05/22 05/06/22 17:10 20:44 07:59 WBC RBC Hgb Hct MCV MCH MCHC RDW Std Deviation RDW Coeff of Chintan Plt Count MPV Immature Gran % (Auto) Neut % (Auto) Lymph % (Auto) Denali % (Auto) Eos % (Auto) Baso % (Auto) Neut # (Auto) Lymph # (Auto) Denali # (Auto) Eos # (Auto) Baso # (Auto) Immature Gran # (Auto) Sodium Potassium Chloride Carbon Dioxide Anion Gap BUN Creatinine Est Cr Clr Drug Dosing Est GFR ( Amer) Est GFR (Non-Af Amer) BUN/Creatinine Ratio Glucose POC Glucose 138 H 171 H 158 H Calcium 05/06/22 05/06/22 05/06/22 11:53 17:00 20:21 WBC RBC Hgb Hct MCV MCH MCHC RDW Std Deviation RDW Coeff of Chintan Plt Count MPV Immature Gran % (Auto) Neut % (Auto) Lymph % (Auto) Denali % (Auto) Eos % (Auto) Baso % (Auto) Neut # (Auto) Lymph # (Auto) Denali # (Auto) Eos # (Auto) Baso # (Auto) Immature Gran # (Auto) Sodium Potassium Chloride Carbon Dioxide Anion Gap BUN Creatinine Est Cr Clr Drug Dosing Est GFR ( Amer) Est GFR (Non-Af Amer) BUN/Creatinine Ratio Glucose POC Glucose 228 H 164 H 180 H Calcium 05/07/22 05/07/22 05/07/22 07:20 07:20 07:51 WBC 7.77 RBC 4.01 Hgb 12.5 Hct 37.1 MCV 92.5 MCH 31.2 MCHC 33.7 RDW Std Deviation 54.3 H RDW Coeff of Cihntan 15.8 H Plt Count 219 MPV 10.1 Immature Gran % (Auto) 0.3 Neut % (Auto) 48.3 Lymph % (Auto) 40.0 Denali % (Auto) 5.1 Eos % (Auto) 4.8 Baso % (Auto) 1.5 Neut # (Auto) 3.75 Lymph # (Auto) 3.11 Denali # (Auto) 0.40 Eos # (Auto) 0.37 Baso # (Auto) 0.12 Immature Gran # (Auto) 0.02 Sodium 134 L Potassium 4.5 Chloride 101 Carbon Dioxide 27 Anion Gap 6 BUN 35 H Creatinine 0.69 Est Cr Clr Drug Dosing 106.6 Est GFR ( Amer) 108.9 Est GFR (Non-Af Amer) 94.0 BUN/Creatinine Ratio 50.7 H Glucose 171 H POC Glucose 173 H Calcium 9.6 05/07/22 11:47 WBC RBC Hgb Hct MCV MCH MCHC RDW Std Deviation RDW Coeff of Chintan Plt Count MPV Immature Gran % (Auto) Neut % (Auto) Lymph % (Auto) Denali % (Auto) Eos % (Auto) Baso % (Auto) Neut # (Auto) Lymph # (Auto) Denali # (Auto) Eos # (Auto) Baso # (Auto) Immature Gran # (Auto) Sodium Potassium Chloride Carbon Dioxide Anion Gap BUN Creatinine Est Cr Clr Drug Dosing Est GFR ( Amer) Est GFR (Non-Af Amer) BUN/Creatinine Ratio Glucose POC Glucose 222 H Calcium Medications Administered Current Inpatient Medications Acetaminophen (Acetaminophen 325 Mg Tab) 650 mg PO Q4H PRN PRN Reason: pain/fever Stop: 05/19/22 14:58 Last Admin: 05/06/22 20:16 Dose: 650 mg Dextrose (Dextrose 50% 50 Ml Syringe) 25 - 50 ml IV UD PRN; Protocol PRN Reason: Hypoglycemia Protocol Stop: 05/19/22 14:58 Enoxaparin Sodium (Enoxaparin Inj 40 Mg/0.4 Ml Syr) 40 mg SQ Q24H ERAN Stop: 05/19/22 15:14 Last Admin: 05/06/22 15:06 Dose: 40 mg Furosemide (Furosemide 20 Mg Tab) 20 mg PO QAM ERAN Stop: 06/01/22 08:59 Last Admin: 05/07/22 08:29 Dose: 20 mg Glucagon (Glucagon For Inj 1 Mg Vial) 1 mg SQ UD PRN; Protocol PRN Reason: Hypoglycemia Protocol Stop: 05/19/22 14:58 Glucose (Glucose 40% Gel 15 Gm Tube) 15 - 30 gm PO UD PRN; Protocol PRN Reason: Hypoglycemia Protocol Stop: 05/19/22 14:58 Glucose (Glucose 10 Tab/Tube) 4 - 8 tab PO UD PRN; Protocol PRN Reason: Hypoglycemia Treatment Stop: 05/19/22 14:58 Heparin Sodium (Beef Lung) (Heparin 10 Unit/Ml 5 Ml Flush) 5 ml FLUSH PRN PRN PRN Reason: Flush Stop: 05/20/22 01:27 Last Admin: 05/07/22 07:27 Dose: 5 ml Cefazolin Sodium (Ancef 2000mg) 2,000 mg in 15 mls @ 3.75 mls/min IV Q8H ERAN Stop: 05/17/22 21:59 Last Admin: 05/07/22 05:19 Dose: 3.75 mls/min Insulin Aspart (Insulin Aspart Per Unit) 0 units SC ACHS ERAN Stop: 05/28/22 20:59 Last Admin: 05/07/22 12:55 Dose: 8 units Insulin Glargine (Lantus Per Unit Charge) 8 units SQ BID ERAN Stop: 05/31/22 20:59 Last Admin: 05/07/22 09:21 Dose: 8 units Lactobacillus Acidophilus (Advanced Probiotic 1250 Mg Capsule) 2 cap PO DAILY ERAN Stop: 05/20/22 17:44 Last Admin: 05/07/22 08:29 Dose: 2 cap Loperamide HCl (Loperamide Hcl 2 Mg Cap) 2 mg PO Q6H PRN PRN Reason: Diarrhea Stop: 05/24/22 09:44 Last Admin: 05/03/22 14:42 Dose: 2 mg Melatonin (Melatonin 3 Mg Tab) 3 mg PO HS ERAN Stop: 05/25/22 20:59 Last Admin: 05/06/22 20:16 Dose: 3 mg Metoprolol Tartrate (Metoprolol Tartrate 25 Mg Tab) 25 mg PO BID ERAN Stop: 05/19/22 20:59 Last Admin: 05/07/22 08:30 Dose: 25 mg Miscellaneous (Carbohydrates For Hypoglycemia ) 15 - 30 gm PO UD PRN PRN Reason: Hypoglycemia Protocol Stop: 05/19/22 14:58 Nystatin (Nystatin Powder 15gm Btl) 1 appln EXT BID ERAN Stop: 05/21/22 20:59 Last Admin: 05/07/22 08:30 Dose: 1 appln Polyethylene Glycol (Polyethylene (Miralax) 17 Gm Pack) 17 gm PO DAILY PRN PRN Reason: Constipation Stop: 06/05/22 16:12 Potassium Chloride (Potassium Chloride Crtab 20 Meq Tabcr) 40 meq PO QAM ERAN Stop: 05/25/22 08:59 Last Admin: 05/07/22 08:29 Dose: 40 meq Spironolactone (Spironolactone 25 Mg Tab) 50 mg PO DAILY [facility] Stop: 06/01/22 08:59 Last Admin: 05/07/22 08:29 Dose: 50 mg
[2022-05-07] MEDS: ENOXAPARIN INJ 40 MG/0.4 ML SYR SQ SCH (15:26)
[2022-05-07] MEDS: MELATONIN 3 MG TAB PO SCH (21:00)
[2022-05-07] MEDS: ACETAMINOPHEN 325 MG TAB PO PRN (21:00)
[2022-05-08] MEDS: ACETAMINOPHEN 325 MG TAB PO PRN ×2 (05:57→20:11)
[2022-05-08] MEDS: ceFAZolin 2000MG 2,000 MG/15 ML SYR IV SCH ×3 (05:58→22:20)
[2022-05-08] MEDS: POTASSIUM CHLORIDE CRTAB 20 MEQ TABCR PO SCH (09:40)
[2022-05-08] MEDS: ADVANCED PROBIOTIC 1250 MG CAPSULE PO SCH (09:40)
[2022-05-08] MEDS: SPIRONOLACTONE 25 MG TAB PO SCH (09:40)
[2022-05-08] MEDS: FUROSEMIDE 20 MG TAB PO SCH (09:40)
[2022-05-08] MEDS: METOPROLOL TARTRATE 25 MG TAB PO SCH ×2 (09:42→20:15)
[2022-05-08] MEDS: INSULIN ASPART PER UNIT SC SCH ×4 (09:43→21:54)
[2022-05-08] MEDS: LANTUS PER UNIT CHARGE SQ SCH ×2 (09:45→21:55)
[2022-05-08] MEDS: NYSTATIN POWDER 15GM BTL EXT SCH ×2 (12:00→21:56)
--- NOTE | 2022-05-08 13:12 | Hospitalist Progress Note ---
Date of Service May 08, 2022 Assessment & Plan (1) Pressure ulcers of skin of multiple topographic sites: Plan: Multiple wounds scattered over body - please refer to wound care nurse documentation for full details and photos 04/20/2022 - 5cm x 5cm wound left buttock - large amount of purulent drainage expressed when rolling patient in bed. IV cefepime added to IV daptomycin patient was previously on for MSSA bacteremia. CT obtained that did not show evidence of deep abscess. General surgery consulted for wound debridement; patient underwent debridement in the OR on 04/21. 3cm x 3cm wound left lateral ankle over the malleolus - sloughing tissue pre sent. MRI ordered to evaluate for possible osteomyelitis however patient declined study. Ortho consulted, bedside debridement preformed 04/20. Vascular consult placed by ortho. BLE arterial duplex demonstrates mild diffuse disease BLE. No indications for for vascular surgery intervention. Intra-Op left buttock wound debridement culture shows Enterobacter cloacae, bacteroides fragilis. On discharge to Rehab: -Continue Cefazolin 2G IV TID with 6 week course through 05/17/22 -Weekly CBC with diff and CMP to patients primary care physician. Wound care following. Wound VAC in place to left lateral ankle and left buttock wounds. Waffle boots ordered for ankle offloading. (2) MSSA bacteremia: Plan: Diagnosed during previous admission, currently on IV cefepime. Patient declined JILLIAN to evaluate for endocarditis during previous admission however patient is now agreeable. Patient underwent EGD to evaluate for varices prior to JILLIAN. EGD shows grade 1, small esophageal varices, okay to proceed with JILLIAN. Cardiology was consulted for JILLIAN JILLIAN showed vegetation on the aortic valve as per discussion by previous hospitalist with the prefabricated houses trimmer. ID on board Recommended therapy with IV Cefazolin 2g q8h to complete a total of 6 weeks course (end therapy 05/17/22) Obtain weekly CBC, CMP and ESR Follow-up with ID Dr. Ellis Diarrhea Negative C. difficile on 04/23 Seems to be improving Urinary retention Resolved TOV successful on 04/24 Hypoxia Resolved Intermittent hypoxia noted, patient briefly required 1-2L Continue on Lasix; spironolactone (3) Generalized weakness: (4) Ambulatory dysfunction: Plan: Patient presenting from home with reports of generalized weakness, ambulatory dysfunction, frequent falls. Recently admitted to [facility] 04/04 through 11/16 after not receiving care for many years and was found to have acute diastolic CHF, aortic stenosis, multiple lower extremity wounds, imaging findings suggestive of cirrhosis, and MSSA bacteremia. PT/OT, case management to assist with placement (5) Type 2 diabetes mellitus: Plan: Hgb A1c 10.5 04/04/2022 Newly diagnosed during previous admission, discharged on metformin Utilize Lantus and NovoLog per protocol while hospitalized (6) Aortic stenosis: (7) Chronic diastolic CHF (congestive heart failure): Plan: Appears euvolemic, continue furosemide and spironolactone Patient to establish with [facility] cardiology (8) Cirrhosis: Plan: Appears compensated Imaging during previous admission suggestive of cirrhosis, no prior history of EGD today shows small, grade 1 esophageal varices Patient to follow with [facility] as an outpatient (9) DVT prophylaxis: Plan: SQ Lovenox Dispositionpatient was discharged home last admission despite being suggested to go to rehab. Patient would need extensive wound care and IV antibiotic. Case management on board. Waiting for placement Admission and Anticipated Discharge Date Admission Date: April 19, 2022 Subjective Comfortably sitting in the chair; not in distress. Denies fever, chills, chest pain, shortness of breath, diarrhea or constipation. Review of Systems Review of Systems: All systems reviewed & are unremarkable except as noted in Subjective Physical Exam Physical Exam: Constitutional: Awake, alert orient x3. Not in any distress. Morbidly obese. Respiratory: normal respiratory effort, lungs clear to auscultation, no wheeze, rales, rhonchi. Normal insp/exp effort, no accessory muscle use Cardiovascular: RRR, no murmur, no edema Vessels: no JVD or carotid bruit Chest: normal inspection of chest Abdomen: normal bowel sounds, soft, nontender, no hepatosplenomegaly Musculoskeletal: no cyanosis or clubbing, extremities motor strength 5/5 Skin: no rashes, warm and dry normal turgor Neurologic: PERRL, EOMI, accommodation nl, no face palsy, no dysarthria CN's II- XI intact bilaterally and moves all extremities Psychiatric: A+Ox3, euthymic affect Lymphatic: no cervical or axillary lymphadenopathy : deferred Results & Data Results & Data ([facility]) Vital Signs (Past 12 Hours) Vital Signs Temp Pulse Resp BP Pulse Ox O2 Del Method 05/08/22 11:55 36.7 C 82 18 115/68 96 Room Air 05/08/22 10:10 Room Air 05/08/22 07:50 36.7 C 91 H 18 129/79 96 Room Air 05/08/22 06:27 90 18 144/79 H 96 Room Air Laboratory Results Laboratory Results WBC 7.77 K/ul (4.8-10.8) 05/07/22 07:20 RBC 4.01 M/uL (3.93-5.22) 05/07/22 07:20 Hgb 12.5 g/dl (12.0-16.0) 05/07/22 07:20 Hct 37.1 % (34.1-44.9) 05/07/22 07:20 MCV 92.5 fL (80.0-100.0) 05/07/22 07:20 MCH 31.2 pg (25.0-34.0) 05/07/22 07:20 MCHC 33.7 g/dL (32.0-36.0) 05/07/22 07:20 RDW Std Deviation 54.3 fL (36.4-46.3) H 05/07/22 07:20 RDW Coeff of Chintan 15.8 % (11.5-14.5) H 05/07/22 07:20 Plt Count 219 K/uL (130-400) 05/07/22 07:20 MPV 10.1 fL (9.4-12.3) 05/07/22 07:20 Immature Gran % (Auto) 0.3 % 05/07/22 07:20 Neut % (Auto) 48.3 % 05/07/22 07:20 Lymph % (Auto) 40.0 % 05/07/22 07:20 [place] % (Auto) 5.1 % 05/07/22 07:20 Eos % (Auto) 4.8 % 05/07/22 07:20 Baso % (Auto) 1.5 % 05/07/22 07:20 Neut # (Auto) 3.75 K/uL (1.4-6.5) 05/07/22 07:20 Lymph # (Auto) 3.11 K/uL (1.2-3.4) 05/07/22 07:20 [place] # (Auto) 0.40 K/uL (0.24-0.82) 05/07/22 07:20 Eos # (Auto) 0.37 K/uL (0-0.50) 05/07/22 07:20 Baso # (Auto) 0.12 K/uL (0-0.2) 05/07/22 07:20 Immature Gran # (Auto) 0.02 K/uL (0.00-0.02) 05/07/22 07:20 ESR 102 mm/hr (0-30) H 04/26/22 06:48 PT 11.8 Seconds (9.0-12.0) 04/27/22 08:12 INR 1.1 (0.9-1.1) 04/27/22 08:12 Sodium 134 mmol/L (136-145) L 05/07/22 07:20 Potassium 4.5 mmol/L (3.5-5.1) 05/07/22 07:20 Chloride 101 mmol/L (98-107) 05/07/22 07:20 Carbon Dioxide 27 mmol/L (21-32) 05/07/22 07:20 Anion Gap 6 (3-11) 05/07/22 07:20 BUN 35 mg/dl (6-23) H 05/07/22 07:20 Creatinine 0.69 mg/dl (0.6-1.2) 05/07/22 07:20 Est Cr Clr Drug Dosing 106.6 ml/min 05/07/22 07:20 Est GFR ( Amer) 108.9 ml/min 05/07/22 07:20 Est GFR (Non-Af Amer) 94.0 ml/min 05/07/22 07:20 BUN/Creatinine Ratio 50.7 (10-20) H 05/07/22 07:20 Glucose 171 mg/dl (70-99(Fasting)) H 05/07/22 07:20 POC Glucose 210 mg/dl (70-99) H 05/08/22 11:48 Lactate 0.8 mmol/L (0.4-2.0) 04/20/22 16:02 Calcium 9.6 mg/dl (8.5-10.1) 05/07/22 07:20 Magnesium 1.9 mg/dl (1.7-2.4) 05/03/22 05:39 Total Bilirubin 0.4 mg/dl (0.2-1.0) 04/24/22 05:09 AST 23 U/L (13-39) 04/24/22 05:09 ALT 12 U/L (7-52) 04/24/22 05:09 Alkaline Phosphatase 123 U/L (34-104) H 04/24/22 05:09 Total Creatine Kinase 12 U/L (26-192) L 04/22/22 08:03 Troponin I High Sens 13.5 pg/ml (0-14) D 04/19/22 11:33 C-Reactive Protein 1.67 mg/dl (0-0.5) H 04/26/22 06:48 B-Natriuretic Peptide 585 pg/ml (0-100) H 04/19/22 12:04 Total Protein 7.3 gm/dl (6.0-8.3) 04/24/22 05:09 Albumin 2.8 gm/dl (3.4-5.0) L 04/24/22 05:09 Globulin 4.5 gm/dl (2.5-4.0) H 04/24/22 05:09 Albumin/Globulin Ratio 0.6 (0.9-2) L 04/24/22 05:09 Urine Color Yellow 04/19/22 18:50 Urine Appearance Clear (Clear) 04/19/22 18:50 Urine pH 5.5 (4.5-7.5) 04/19/22 18:50 Ur Specific [place] 1.014 (1.000-1.030) 04/19/22 18:50 Urine Protein Trace (Negative) H 04/19/22 18:50 Urine Glucose (UA) Negative (Negative) 04/19/22 18:50 Urine Ketones Negative (Negative) 04/19/22 18:50 Urine Blood 1+ (Negative) H 04/19/22 18:50 Urine Nitrite Negative (Negative) 04/19/22 18:50 Urine Bilirubin Negative (Negative) 04/19/22 18:50 Urine Urobilinogen Negative (Negative) 04/19/22 18:50 Ur Leukocyte Esterase Negative (Negative) 04/19/22 18:50 Urine WBC (Auto) 1-5 /hpf (0-5) 04/19/22 18:50 Urine RBC (Auto) 0-4 /hpf (0-4) 04/19/22 18:50 U Hyaline Cast (Auto) 5-10 /lpf (0-5) H 04/19/22 18:50 U Epithel Cells (Auto) 10-20 /lpf (0-5) H 04/19/22 18:50 Urine Bacteria (Auto) Negative (Negative) 04/19/22 18:50 Urine Yeast Budding (None Prsent) A 04/19/22 18:50 Stl C. diff Tox B Gene Negative Cdiff Gene (Neg) 04/23/22 19:30 SARS-CoV-2, RNA, NAAT NEGATIVE (NEGATIVE) 04/19/22 13:[address] 04/20/22 09:53 CT pelvis w/IV con only HISTORY: 61 years-old Female left buttock wound, eval for abscess patient presents with wound of the left buttock COMPARISON: 04/04/2022 TECHNIQUE: Axial CT images of the pelvis were obtained following the intravenous administration of 94 mL Optiray 350. A dose lowering technique was used consistent with the principals of DMITRIY. FINDINGS: Marginal nodularity of the liver is redemonstrated suspicious for cirrhosis. No hepatic mass identified. Nonspecific gallbladder wall thickening. Atherosclerosis of the aorta without aneurysm. Calcified pelvic lymph nodes are redemonstrated. 4 mm nonobstructing calculus of the inferior pole left kidney. Decompressed urinary bladder with Lozano catheter in place. Postmenopausal endometrium appears to be mildly thickened. No bowel obstruction or bowel wall thickening. Moderate colonic fecal retention. Normal appendix. Small fat filled periumbilical hernia, diastases of 2.7 cm. There is a large left buttock soft tissue wound measuring approximately 3.8 cm transversely. There is a large amount of air and/or packing material extending into the wound into the proximal left thigh. This is most pronounced medially however air and inflammatory stranding tracks into the hamstring and abductor musculature. No drainable fluid collection. Degenerative changes of the spine, pelvis and hips. No acute fracture. No destructive bone lesion. IMPRESSION: 1. Large left buttock ulcer with inflammatory stranding and deep tissue gas. Findings may be secondary to recent intervention, however should be correlated clinically to exclude fasciitis. Additionally, there is evidence of associated cellulitis with myositis. No drainable fluid collection. 2. No bowel obstruction or bowel wall thickening. 3. Left nephrolithiasis. 4. Nonspecific gallbladder wall thickening. Findings could be correlated with ultrasound. 5. Additional findings as above. ACT 112: Negative or not required by law. The above report was generated using voice recognition software. It may contain grammatical, syntax or spelling errors. Electronically signed by: Michael Rodriguez M.D. 04/20/2022 3:01 PM Ankle MRI 04/20/22 09:58 MR ankle LT wo con CLINICAL HISTORY: 61 years-old Female with left lateral ankle wound, eval for osteo. 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 No additional images were obtained. FINDINGS/IMPRESSION: Limited automotive general sales manager images were obtained. The patient decided to abort the study. No diagnostic images were obtained. The patient will not be charged for this exam. ACT 112: Negative or not required by law. The above report was generated using voice recognition software. It may contain grammatical, syntax or spelling errors. Electronically signed by: Michael Rodriguez M.D. 04/20/2022 1:52 PM Ankle X-Ray 04/20/22 10:20 LEFT ANKLE 3 VIEWS CLINICAL HISTORY: Wound. FINDINGS: 3 views of the left ankle are correlated with CT scan of the left t ibia and fibula dated 04/04/2022. The skeletal structures are osteopenic. No fracture is seen. There is no bony erosion or periostitis. The ankle mortise is intact. No joint effusion is identified. There is a large plantar heel spur. Degenerative spurring is seen along the dorsal aspect of the tarsal bones. Soft tissue edema is present throughout the left lower extremity. There is advanced atherosclerotic calcification of the regional arteries. Phleboliths are noted in the calf. No soft tissue gas is seen. IMPRESSION: 1. Soft tissue swelling with no acute bony abnormality identified. 2. Osteopenia with degenerative change and a large heel spur as above. Electronically signed by: Israel Johnson M.D. 04/20/2022 12:24 PM Duplex Scan Lower Extremity Artery 04/20/22 14:59 US arterial duplex LE BI HISTORY: 61 years-old Female non healing wounds chronic nonhealing wounds of the lower extremities COMPARISON: None TECHNIQUE: Multiple real-time sonographic images of the lower extremity arterial structures were obtained assessing grayscale appearance, color and spectral flow FINDINGS: RIGHT: Triphasic waveforms within the common femoral, superficial femoral and anterior tibial arteries with monophasic waveforms extending from the popliteal artery into the lower leg. No arterial occlusion or significantly elevated peak systolic velocities within the right lower extremity. Atherosclerotic plaque is noted. LEFT: Triphasic waveforms within the common femoral, superficial femoral and anterior tibial arteries with monophasic waveforms extending from the popliteal artery into the lower leg. No arterial occlusion or significantly elevated peak systolic velocities within the left lower extremity. Atherosclerotic plaque is noted. Distal portions of the anterior tibial, peroneal, posterior tibial and dorsalis pedis arteries aren't able to be visualized secondary to overlying bandages. ABIs were also unable to be obtained secondary to these same reasons. IMPRESSION: 1. No arterial occlusion or significantly elevated peak systolic velocities identified to suggest high-grade stenosis. 2. Limited exam as above. 3. Monophasic waveforms of the lower legs. ACT 112: Negative or not required by law. The above report was generated using voice recognition software. It may contain grammatical, syntax or spelling errors. Electronically signed by: Michael Rodriguez M.D. 04/21/2022 9:12 AM Chest X-Ray 04/20/22 15:38 XR chest 1V portable CLINICAL HISTORY: hypoxia COMPARISON STUDY: Chest CT April 04, 2022. Chest radiograph April 19, 2022. FINDINGS: Right PICC is in place. No pneumothorax or pleural effusion is present. Cardiomegaly is unchanged. Patient is rotated. Interstitial thickening is again noted. Linear bilateral opacities persist. There is no lobar consolidation. IMPRESSION: 1. Cardiomegaly. Mild interstitial thickening. This may reflect pulmonary vascular congestion without overt pulmonary edema. 2. Linear bilateral opacities which favor atelectasis. An infectious process could appear similar although is considered less likely. ACT 112: Negative or not required by law. Electronically signed by: Cruz Berman M.D. 04/20/2022 5:03 PM
[2022-05-08] MEDS: ENOXAPARIN INJ 40 MG/0.4 ML SYR SQ SCH (16:00)
[2022-05-08] MEDS: MELATONIN 3 MG TAB PO SCH (20:10)
[2022-05-09] MEDS: ceFAZolin 2000MG 2,000 MG/15 ML SYR IV SCH ×3 (05:23→21:59)
[2022-05-09 06:07] LABS: Basophils % (auto) 1.5 %; Eosinophils # (auto) 0.28 K/uL (0-0.50); Eosinophils % (auto) 4.2 %; Hematocrit (blood only) 38.4 % (34.1-44.9); Immature Granulocytes # (auto) 0.03 K/uL (0.00-0.02); Immature Granulocytes % (auto) 0.4 %; Lymphocytes # (auto) 2.78 K/uL (1.2-3.4); Lymphocytes % (auto) 41.6 %; Mean Corpuscular Hemoglobin 31.2 pg (25.0-34.0); Mean Corpuscular Hgb Conc 33.9 g/dL (32.0-36.0); Mean Corpuscular Volume 92.1 fL (80.0-100.0); Mean Platelet Volume 10.2 fL (9.4-12.3); Monocytes # (auto) 0.37 K/uL (0.24-0.82); Monocytes % (auto) 5.5 %; Neutrophils # (auto) 3.12 K/uL (1.4-6.5); Neutrophils % (auto) 46.8 %; Platelet Count 221 K/uL (130-400); RDW Coefficient of Variation 15.7 % (11.5-14.5); Red Blood Count 4.17 M/uL (3.93-5.22); White Blood Count 6.68 K/ul (4.8-10.8)
[2022-05-09 06:30] LABS: BUN Creatinine Ratio 56.1 (10-20); Calcium 9.5 mg/dl (8.5-10.1); Creatinine Clr Calc Pharmacy 111.4 ml/min; Est GFR (African American) 110.5 ml/min; Est GFR (Non-African American) 95.3 ml/min; Potassium 4.3 mmol/L (3.5-5.1)
[2022-05-09] MEDS: SPIRONOLACTONE 25 MG TAB PO SCH (08:12)
[2022-05-09] MEDS: METOPROLOL TARTRATE 25 MG TAB PO SCH ×2 (08:12→20:42)
[2022-05-09] MEDS: ADVANCED PROBIOTIC 1250 MG CAPSULE PO SCH (08:13)
[2022-05-09] MEDS: FUROSEMIDE 20 MG TAB PO SCH (08:13)
[2022-05-09] MEDS: NYSTATIN POWDER 15GM BTL EXT SCH ×2 (08:14→20:43)
[2022-05-09] MEDS: POTASSIUM CHLORIDE CRTAB 20 MEQ TABCR PO SCH (08:14)
[2022-05-09] MEDS: LANTUS PER UNIT CHARGE SQ SCH ×2 (09:18→20:44)
[2022-05-09] MEDS: INSULIN ASPART PER UNIT SC SCH ×4 (09:18→20:44)
--- NOTE | 2022-05-09 11:30 | Hospitalist Progress Note ---
Date of Service May 09, 2022 Assessment & Plan (1) Pressure ulcers of skin of multiple topographic sites: Plan: Multiple wounds scattered over body - please refer to wound care nurse documentation for full details and photos 04/20/2022 - 5cm x 5cm wound left buttock - large amount of purulent drainage expressed when rolling patient in bed. IV cefepime added to IV daptomycin patient was previously on for MSSA bacteremia. CT obtained that did not show evidence of deep abscess. General surgery consulted for wound debridement; patient underwent debridement in the OR on 04/21. 3cm x 3cm wound left lateral ankle over the malleolus - sloughing tissue pre sent. MRI ordered to evaluate for possible osteomyelitis however patient declined study. Ortho consulted, bedside debridement preformed 04/20. Vascular consult placed by ortho. BLE arterial duplex demonstrates mild diffuse disease BLE. No indications for for vascular surgery intervention. Intra-Op left buttock wound debridement culture shows Enterobacter cloacae, bacteroides fragilis. On discharge to Rehab: -Continue Cefazolin 2G IV TID with 6 week course through 05/17/22 -Weekly CBC with diff and CMP to patients primary care physician. Wound care following. Wound VAC in place to left lateral ankle and left buttock wounds. Waffle boots ordered for ankle offloading. (2) MSSA bacteremia: Plan: Diagnosed during previous admission Patient declined JILLIAN to evaluate for endocarditis during previous admission however patient is now agreeable. Patient underwent EGD on 04/27 to evaluate for varices prior to JILLIAN. EGD shows grade 1, small esophageal varices JILLIAN on 04/28 showed vegetation on the aortic valve as per discussion by previous hospitalist with the ichthyologist. ID on board Recommended therapy with IV Cefazolin 2g q8h to complete a total of 6 weeks course (end therapy 05/17/22) Obtain weekly CBC, CMP and ESR Follow-up with ID Dr. Ellis Diarrhea Negative C. difficile on 04/23 Seems to be improving Urinary retention Resolved TOV successful on 04/24 Hypoxia Resolved Intermittent hypoxia noted, patient briefly required 1-2L Continue on Lasix; spironolactone (3) Generalized weakness: (4) Ambulatory dysfunction: Plan: Patient presenting from home with reports of generalized weakness, ambulatory dysfunction, frequent falls. Recently admitted to [facility] 04/04 through 04/14 after not receiving care for many years and was found to have acute diastolic CHF, aortic stenosis, multiple lower extremity wounds, imaging findings suggestive of cirrhosis, and MSSA bacteremia. PT/OT, case management to assist with placement (5) Type 2 diabetes mellitus: Plan: Hgb A1c 10.5 04/04/2022 Newly diagnosed during previous admission, discharged on metformin Utilize Lantus and NovoLog per protocol while hospitalized (6) Aortic stenosis: (7) Chronic diastolic CHF (congestive heart failure): Plan: Appears euvolemic, continue furosemide and spironolactone Patient to establish with [facility] cardiology (8) Cirrhosis: Plan: Appears compensated Imaging during previous admission suggestive of cirrhosis, no prior history of EGD today shows small, grade 1 esophageal varices Patient to follow with [facility] GI as an outpatient (9) DVT prophylaxis: Plan: SQ Lovenox Dispositionpatient was discharged home last admission despite being suggested to go to rehab. Patient would need extensive wound care and IV antibiotic. Case management on board. Waiting for placement. Likely discharge on Tuesday. Admission and Anticipated Discharge Date Admission Date: April 19, 2022 Subjective Patient seen and examined at bedside. She is comfortable; not arterial in distress. Wound VAC of her sacral wound came off when patient was walking. Review of Systems Review of Systems: All systems reviewed & are unremarkable except as noted in Subjective Physical Exam Physical Exam: Constitutional: Awake, alert orient x3. Not in any distress. Morbidly obese. Respiratory: normal respiratory effort, lungs clear to auscultation, no wheeze, rales, rhonchi. Normal insp/exp effort, no accessory muscle use Cardiovascular: RRR, no murmur, no edema Vessels: no JVD or carotid bruit Chest: normal inspection of chest Abdomen: normal bowel sounds, soft, nontender, no hepatosplenomegaly Musculoskeletal: no cyanosis or clubbing, extremities motor strength 5/5 Skin: no rashes, warm and dry normal turgor Neurologic: PERRL, EOMI, accommodation nl, no face palsy, no dysarthria CN's II- XI intact bilaterally and moves all extremities Psychiatric: A+Ox3, euthymic affect Lymphatic: no cervical or axillary lymphadenopathy : deferred Results & Data Results & Data ([facility]) Vital Signs (Past 12 Hours) Vital Signs Temp Pulse Resp BP Pulse Ox O2 Del Method 05/09/22 07:53 36.8 C 92 H 16 136/78 97 Room Air Laboratory Results Laboratory Results WBC 6.68 K/ul (4.8-10.8) 05/09/22 05:42 RBC 4.17 M/uL (3.93-5.22) 05/09/22 05:42 Hgb 13.0 g/dl (12.0-16.0) 05/09/22 05:42 Hct 38.4 % (34.1-44.9) 05/09/22 05:42 MCV 92.1 fL (80.0-100.0) 05/09/22 05:42 MCH 31.2 pg (25.0-34.0) 05/09/22 05:42 MCHC 33.9 g/dL (32.0-36.0) 05/09/22 05:42 RDW Std Deviation 53.0 fL (36.4-46.3) H 05/09/22 05:42 RDW Coeff of Chintan 15.7 % (11.5-14.5) H 05/09/22 05:42 Plt Count 221 K/uL (130-400) 05/09/22 05:42 MPV 10.2 fL (9.4-12.3) 05/09/22 05:42 Immature Gran % (Auto) 0.4 % 05/09/22 05:42 Neut % (Auto) 46.8 % 05/09/22 05:42 Lymph % (Auto) 41.6 % 05/09/22 05:42 [place] % (Auto) 5.5 % 05/09/22 05:42 Eos % (Auto) 4.2 % 05/09/22 05:42 Baso % (Auto) 1.5 % 05/09/22 05:42 Neut # (Auto) 3.12 K/uL (1.4-6.5) 05/09/22 05:42 Lymph # (Auto) 2.78 K/uL (1.2-3.4) 05/09/22 05:42 [place] # (Auto) 0.37 K/uL (0.24-0.82) 05/09/22 05:42 Eos # (Auto) 0.28 K/uL (0-0.50) 05/09/22 05:42 Baso # (Auto) 0.10 K/uL (0-0.2) 05/09/22 05:42 Immature Gran # (Auto) 0.03 K/uL (0.00-0.02) H 05/09/22 05:42 ESR 102 mm/hr (0-30) H 04/26/22 06:48 PT 11.8 Seconds (9.0-12.0) 04/27/22 08:12 INR 1.1 (0.9-1.1) 04/27/22 08:12 Sodium 134 mmol/L (136-145) L 05/09/22 05:42 Potassium 4.3 mmol/L (3.5-5.1) 05/09/22 05:42 Chloride 99 mmol/L (98-107) 05/09/22 05:42 Carbon Dioxide 27 mmol/L (21-32) 05/09/22 05:42 Anion Gap 8 (3-11) 05/09/22 05:42 BUN 37 mg/dl (6-23) H 05/09/22 05:42 Creatinine 0.66 mg/dl (0.6-1.2) 05/09/22 05:42 Est Cr Clr Drug Dosing 111.4 ml/min 05/09/22 05:42 Est GFR ( Amer) 110.5 ml/min 05/09/22 05:42 Est GFR (Non-Af Amer) 95.3 ml/min 05/09/22 05:42 BUN/Creatinine Ratio 56.1 (10-20) H 05/09/22 05:42 Glucose 163 mg/dl (70-99(Fasting)) H 05/09/22 05:42 POC Glucose 180 mg/dl (70-99) H 05/09/22 07:47 Lactate 0.8 mmol/L (0.4-2.0) 04/20/22 16:02 Calcium 9.5 mg/dl (8.5-10.1) 05/09/22 05:42 Magnesium 1.9 mg/dl (1.7-2.4) 05/03/22 05:39 Total Bilirubin 0.4 mg/dl (0.2-1.0) 04/24/22 05:09 AST 23 U/L (13-39) 04/24/22 05:09 ALT 12 U/L (7-52) 04/24/22 05:09 Alkaline Phosphatase 123 U/L (34-104) H 04/24/22 05:09 Total Creatine Kinase 12 U/L (26-192) L 04/22/22 08:03 Troponin I High Sens 13.5 pg/ml (0-14) D 04/19/22 11:33 C-Reactive Protein 1.67 mg/dl (0-0.5) H 04/26/22 06:48 B-Natriuretic Peptide 585 pg/ml (0-100) H 04/19/22 12:04 Total Protein 7.3 gm/dl (6.0-8.3) 04/24/22 05:09 Albumin 2.8 gm/dl (3.4-5.0) L 04/24/22 05:09 Globulin 4.5 gm/dl (2.5-4.0) H 04/24/22 05:09 Albumin/Globulin Ratio 0.6 (0.9-2) L 04/24/22 05:09 Urine Color Yellow 04/19/22 18:50 Urine Appearance Clear (Clear) 04/19/22 18:50 Urine pH 5.5 (4.5-7.5) 04/19/22 18:50 Ur Specific Blanco 1.014 (1.000-1.030) 04/19/22 18:50 Urine Protein Trace (Negative) H 04/19/22 18:50 Urine Glucose (UA) Negative (Negative) 04/19/22 18:50 Urine Ketones Negative (Negative) 04/19/22 18:50 Urine Blood 1+ (Negative) H 04/19/22 18:50 Urine Nitrite Negative (Negative) 04/19/22 18:50 Urine Bilirubin Negative (Negative) 04/19/22 18:50 Urine Urobilinogen Negative (Negative) 04/19/22 18:50 Ur Leukocyte Esterase Negative (Negative) 04/19/22 18:50 Urine WBC (Auto) 1-5 /hpf (0-5) 04/19/22 18:50 Urine RBC (Auto) 0-4 /hpf (0-4) 04/19/22 18:50 U Hyaline Cast (Auto) 5-10 /lpf (0-5) H 04/19/22 18:50 U Epithel Cells (Auto) 10-20 /lpf (0-5) H 04/19/22 18:50 Urine Bacteria (Auto) Negative (Negative) 04/19/22 18:50 Urine Yeast Budding (None Prsent) A 04/19/22 18:50 Stl C. diff Tox B Gene Negative Cdiff Gene (Neg) 04/23/22 19:30 SARS-CoV-2, RNA, NAAT NEGATIVE (NEGATIVE) 04/19/22 13:[address] 04/20/22 09:53 CT pelvis w/IV con only HISTORY: 61 years-old Female left buttock wound, eval for abscess patient presents with wound of the left buttock COMPARISON: 04/04/2022 TECHNIQUE: Axial CT images of the pelvis were obtained following the intravenous administration of 94 mL Optiray 350. A dose lowering technique was used consistent with the principals of DMITRIY. FINDINGS: Marginal nodularity of the liver is redemonstrated suspicious for cirrhosis. No hepatic mass identified. Nonspecific gallbladder wall thickening. Atherosclerosis of the aorta without aneurysm. Calcified pelvic lymph nodes are redemonstrated. 4 mm nonobstructing calculus of the inferior pole left kidney. Decompressed urinary bladder with Lozano catheter in place. Postmenopausal endometrium appears to be mildly thickened. No bowel obstruction or bowel wall thickening. Moderate colonic fecal retention. Normal appendix. Small fat filled periumbilical hernia, diastases of 2.7 cm. There is a large left buttock soft tissue wound measuring approximately 3.8 cm transversely. There is a large amount of air and/or packing material extending into the wound into the proximal left thigh. This is most pronounced medially however air and inflammatory stranding tracks into the hamstring and abductor musculature. No drainable fluid collection. Degenerative changes of the spine, pelvis and hips. No acute fracture. No destructive bone lesion. IMPRESSION: 1. Large left buttock ulcer with inflammatory stranding and deep tissue gas. Findings may be secondary to recent intervention, however should be correlated clinically to exclude fasciitis. Additionally, there is evidence of associated cellulitis with myositis. No drainable fluid collection. 2. No bowel obstruction or bowel wall thickening. 3. Left nephrolithiasis. 4. Nonspecific gallbladder wall thickening. Findings could be correlated with ultrasound. 5. Additional findings as above. ACT 112: Negative or not required by law. The above report was generated using voice recognition software. It may contain grammatical, syntax or spelling errors. Electronically signed by: Michael Rodriguez M.D. 04/20/2022 3:01 PM Ankle MRI 04/20/22 09:58 MR ankle LT wo con CLINICAL HISTORY: 61 years-old Female with left lateral ankle wound, eval for osteo. Chronic pain of the left ankle COMPARISON: Left ankle radiographs of same day TECHNIQUE: Tipple Tender localizer MR images of the left ankle were performed without contrast. No additional images were obtained. FINDINGS/IMPRESSION: Limited food taster images were obtained. The patient decided to abort the study. No diagnostic images were obtained. The patient will not be charged for this exam. ACT 112: Negative or not required by law. The above report was generated using voice recognition software. It may contain grammatical, syntax or spelling errors. Electronically signed by: Michael Rodriguez M.D. 04/20/2022 1:52 PM Ankle X-Ray 04/20/22 10:20 LEFT ANKLE 3 VIEWS CLINICAL HISTORY: Wound. FINDINGS: 3 views of the left ankle are correlated with CT scan of the left tibia and fibula dated 04/04/2022. The skeletal structures are osteopenic. No fracture is seen. There is no bony erosion or periostitis. The ankle mortise is intact. No joint effusion is identified. There is a large plantar heel spur. Degenerative spurring is seen along the dorsal aspect of the tarsal bones. Soft tissue edema is present throughout the left lower extremity. There is advanced atherosclerotic calcification of the regional arteries. Phleboliths are noted in the calf. No soft tissue gas is seen. IMPRESSION: 1. Soft tissue swelling with no acute bony abnormality identified. 2. Osteopenia with degenerative change and a large heel spur as above. Electronically signed by: Israel Johnson M.D. 04/20/2022 12:24 PM Duplex Scan Lower Extremity Artery 04/20/22 14:59 US arterial duplex LE BI HISTORY: 61 years-old Female non healing wounds chronic nonhealing wounds of the lower extremities COMPARISON: None TECHNIQUE: Multiple real-time sonographic images of the lower extremity arterial structures were obtained assessing grayscale appearance, color and spectral flow FINDINGS: RIGHT: Triphasic waveforms within the common femoral, superficial femoral and anterior tibial arteries with monophasic waveforms extending from the popliteal artery into the lower leg. No arterial occlusion or significantly elevated peak systolic velocities within the right lower extremity. Atherosclerotic plaque is noted. LEFT: Triphasic waveforms within the common femoral, superficial femoral and anterior tibial arteries with monophasic waveforms extending from the popliteal artery into the lower leg. No arterial occlusion or significantly elevated peak systolic velocities within the left lower extremity. Atherosclerotic plaque is noted. Distal portions of the anterior tibial, peroneal, posterior tibial and dorsalis pedis arteries aren't able to be visualized secondary to overlying bandages. ABIs were also unable to be obtained secondary to these same reasons. IMPRESSION: 1. No arterial occlusion or significantly elevated peak systolic velocities identified to suggest high-grade stenosis. 2. Limited exam as above. 3. Monophasic waveforms of the lower legs. ACT 112: Negative or not required by law. The above report was generated using voice recognition software. It may contain grammatical, syntax or spelling errors. Electronically signed by: Michael Rodriguez M.D. 04/21/2022 9:12 AM Chest X-Ray 04/20/22 15:38 XR chest 1V portable CLINICAL HISTORY: hypoxia COMPARISON STUDY: Chest CT April 04, 2022. Chest radiograph April 19, 2022. FINDINGS: Right PICC is in place. No pneumothorax or pleural effusion is present. Cardiomegaly is unchanged. Patient is rotated. Interstitial thickening is again noted. Linear bilateral opacities persist. There is no lobar consolidation. IMPRESSION: 1. Cardiomegaly. Mild interstitial thickening. This may reflect pulmonary vascular congestion without overt pulmonary edema. 2. Linear bilateral opacities which favor atelectasis. An infectious process could appear similar although is considered less likely. ACT 112: Negative or not required by law. Electronically signed by: Cruz Berman M.D. 04/20/2022 5:03 PM
[2022-05-09] MEDS: ENOXAPARIN INJ 40 MG/0.4 ML SYR SQ SCH (15:52)
[2022-05-09] MEDS: ACETAMINOPHEN 325 MG TAB PO PRN ×2 (17:53→23:57)
[2022-05-09] MEDS: MELATONIN 3 MG TAB PO SCH (20:42)
[2022-05-10] MEDS: ceFAZolin 2000MG 2,000 MG/15 ML SYR IV SCH ×3 (05:37→21:07)
[2022-05-10] MEDS: ACETAMINOPHEN 325 MG TAB PO PRN ×3 (05:52→21:06)
[2022-05-10] MEDS: METOPROLOL TARTRATE 25 MG TAB PO SCH ×2 (07:57→21:06)
[2022-05-10] MEDS: POTASSIUM CHLORIDE CRTAB 20 MEQ TABCR PO SCH (07:58)
[2022-05-10] MEDS: SPIRONOLACTONE 25 MG TAB PO SCH (07:58)
[2022-05-10] MEDS: NYSTATIN POWDER 15GM BTL EXT SCH ×2 (07:59→21:07)
[2022-05-10] MEDS: ADVANCED PROBIOTIC 1250 MG CAPSULE PO SCH (07:59)
[2022-05-10] MEDS: FUROSEMIDE 20 MG TAB PO SCH (07:59)
[2022-05-10] MEDS: INSULIN ASPART PER UNIT SC SCH ×4 (08:52→21:12)
[2022-05-10] MEDS: LANTUS PER UNIT CHARGE SQ SCH ×2 (08:53→21:11)
--- NOTE | 2022-05-10 10:40 | Hospitalist Progress Note ---
Date of Service May 10, 2022 Assessment & Plan (1) Pressure ulcers of skin of multiple topographic sites: Plan: Multiple wounds scattered over body - please refer to wound care nurse documentation for full details and photos 04/20/2022 - 5cm x 5cm wound left buttock - large amount of purulent drainage expressed when rolling patient in bed. IV cefepime added to IV daptomycin patient was previously on for MSSA bacteremia. CT obtained that did not show evidence of deep abscess. General surgery consulted for wound debridement; patient underwent debridement in the OR on 04/21. 3cm x 3cm wound left lateral ankle over the malleolus - sloughing tissue pre sent. MRI ordered to evaluate for possible osteomyelitis however patient declined study. Ortho consulted, bedside debridement preformed 04/20. Vascular consult placed by ortho. BLE arterial duplex demonstrates mild diffuse disease BLE. No indications for for vascular surgery intervention. Intra-Op left buttock wound debridement culture shows Enterobacter cloacae, bacteroides fragilis. On discharge to Rehab: -Continue Cefazolin 2G IV TID with 6 week course through 05/17/22 -Weekly CBC with diff and CMP to patients primary care physician. Wound care following. Wound VAC in place to left lateral ankle and left buttock wounds. Waffle boots ordered for ankle offloading. (2) MSSA bacteremia: Plan: Diagnosed during previous admission Patient declined JILLIAN to evaluate for endocarditis during previous admission however patient is now agreeable. Patient underwent EGD on 04/27 to evaluate for varices prior to JILLIAN. EGD shows grade 1, small esophageal varices JILLIAN on 04/28 showed vegetation on the aortic valve as per discussion by previous hospitalist with the pe teacher. ID on board Recommended therapy with IV Cefazolin 2g q8h to complete a total of 6 weeks course (end therapy 05/17/22) Obtain weekly CBC, CMP and ESR Follow-up with ID Dr. Ellis Diarrhea Negative C. difficile on 04/23 Seems to be improving Urinary retention Resolved TOV successful on 04/24 Hypoxia Resolved Intermittent hypoxia noted, patient briefly required 1-2L Continue on Lasix; spironolactone (3) Generalized weakness: (4) Ambulatory dysfunction: Plan: Patient presenting from home with reports of generalized weakness, ambulatory dysfunction, frequent falls. Recently admitted to [facility] 04/04 through 04/14 after not receiving care for many years and was found to have acute diastolic CHF, aortic stenosis, multiple lower extremity wounds, imaging findings suggestive of cirrhosis, and MSSA bacteremia. PT/OT, case management to assist with placement (5) Type 2 diabetes mellitus: Plan: Hgb A1c 10.5 04/04/2022 Newly diagnosed during previous admission, discharged on metformin Utilize Lantus and NovoLog per protocol while hospitalized (6) Aortic stenosis: (7) Chronic diastolic CHF (congestive heart failure): Plan: Appears euvolemic, continue furosemide and spironolactone Patient to establish with [facility] (8) Cirrhosis: Plan: Appears compensated Imaging during previous admission suggestive of cirrhosis, no prior history of EGD today shows small, grade 1 esophageal varices Patient to follow with [facility] as an outpatient (9) DVT prophylaxis: Plan: SQ Lovenox Dispositionpatient was discharged home last admission despite being suggested to go to rehab. Patient would need extensive wound care and IV antibiotic. Case management on board. Waiting for placement. Likely discharge on Tuesday. Admission and Anticipated Discharge Date Admission Date: April 19, 2022 Subjective Patient seen and examined at bedside. She is comfortable; not in any distress. Wound VAC to be replaced today by wound care nurse. Review of Systems Review of Systems: All systems reviewed & are unremarkable except as noted in Subjective Physical Exam Physical Exam: Constitutional: Awake, alert orient x3. Not in any distress. Morbidly obese. Respiratory: normal respiratory effort, lungs clear to auscultation, no wheeze, rales, rhonchi. Normal insp/exp effort, no accessory muscle use Cardiovascular: RRR, no murmur, no edema Vessels: no JVD or carotid bruit Chest: normal inspection of chest Abdomen: normal bowel sounds, soft, nontender, no hepatosplenomegaly Musculoskeletal: no cyanosis or clubbing, extremities motor strength 5/5 Skin: no rashes, warm and dry normal turgor Neurologic: PERRL, EOMI, accommodation nl, no face palsy, no dysarthria CN's II- XI intact bilaterally and moves all extremities Psychiatric: A+Ox3, euthymic affect Lymphatic: no cervical or axillary lymphadenopathy : deferred Results & Data Results & Data ([facility]) Vital Signs (Past 12 Hours) Vital Signs Temp Pulse Pulse Resp BP Pulse Ox O2 Del Method 05/10/22 07:45 36.5 C 88 16 110/84 97 Room Air 05/10/22 07:02 36.7 C 90 18 121/71 96 Room Air 05/09/22 22:55 36.6 C 83 18 109/74 95 Room Air Laboratory Results Laboratory Results WBC 6.68 K/ul (4.8-10.8) 05/09/22 05:42 RBC 4.17 M/uL (3.93-5.22) 05/09/22 05:42 Hgb 13.0 g/dl (12.0-16.0) 05/09/22 05:42 Hct 38.4 % (34.1-44.9) 05/09/22 05:42 MCV 92.1 fL (80.0-100.0) 05/09/22 05:42 MCH 31.2 pg (25.0-34.0) 05/09/22 05:42 MCHC 33.9 g/dL (32.0-36.0) 05/09/22 05:42 RDW Std Deviation 53.0 fL (36.4-46.3) H 05/09/22 05:42 RDW Coeff of Chintan 15.7 % (11.5-14.5) H 05/09/22 05:42 Plt Count 221 K/uL (130-400) 05/09/22 05:42 MPV 10.2 fL (9.4-12.3) 05/09/22 05:42 Immature Gran % (Auto) 0.4 % 05/09/22 05:42 Neut % (Auto) 46.8 % 05/09/22 05:42 Lymph % (Auto) 41.6 % 05/09/22 05:42 Calloway % (Auto) 5.5 % 05/09/22 05:42 Eos % (Auto) 4.2 % 05/09/22 05:42 Baso % (Auto) 1.5 % 05/09/22 05:42 Neut # (Auto) 3.12 K/uL (1.4-6.5) 05/09/22 05:42 Lymph # (Auto) 2.78 K/uL (1.2-3.4) 05/09/22 05:42 Calloway # (Auto) 0.37 K/uL (0.24-0.82) 05/09/22 05:42 Eos # (Auto) 0.28 K/uL (0-0.50) 05/09/22 05:42 Baso # (Auto) 0.10 K/uL (0-0.2) 05/09/22 05:42 Immature Gran # (Auto) 0.03 K/uL (0.00-0.02) H 05/09/22 05:42 ESR 102 mm/hr (0-30) H 04/26/22 06:48 PT 11.8 Seconds (9.0-12.0) 04/27/22 08:12 INR 1.1 (0.9-1.1) 04/27/22 08:12 Sodium 134 mmol/L (136-145) L 05/09/22 05:42 Potassium 4.3 mmol/L (3.5-5.1) 05/09/22 05:42 Chloride 99 mmol/L (98-107) 05/09/22 05:42 Carbon Dioxide 27 mmol/L (21-32) 05/09/22 05:42 Anion Gap 8 (3-11) 05/09/22 05:42 BUN 37 mg/dl (6-23) H 05/09/22 05:42 Creatinine 0.66 mg/dl (0.6-1.2) 05/09/22 05:42 Est Cr Clr Drug Dosing 111.4 ml/min 05/09/22 05:42 Est GFR ( Amer) 110.5 ml/min 05/09/22 05:42 Est GFR (Non-Af Amer) 95.3 ml/min 05/09/22 05:42 BUN/Creatinine Ratio 56.1 (10-20) H 05/09/22 05:42 Glucose 163 mg/dl (70-99(Fasting)) H 05/09/22 05:42 POC Glucose 181 mg/dl (70-99) H 05/10/22 07:41 Lactate 0.8 mmol/L (0.4-2.0) 04/20/22 16:02 Calcium 9.5 mg/dl (8.5-10.1) 05/09/22 05:42 Magnesium 1.9 mg/dl (1.7-2.4) 05/03/22 05:39 Total Bilirubin 0.4 mg/dl (0.2-1.0) 04/24/22 05:09 AST 23 U/L (13-39) 04/24/22 05:09 ALT 12 U/L (7-52) 04/24/22 05:09 Alkaline Phosphatase 123 U/L (34-104) H 04/24/22 05:09 Total Creatine Kinase 12 U/L (26-192) L 04/22/22 08:03 Troponin I High Sens 13.5 pg/ml (0-14) D 04/19/22 11:33 C-Reactive Protein 1.67 mg/dl (0-0.5) H 04/26/22 06:48 B-Natriuretic Peptide 585 pg/ml (0-100) H 04/19/22 12:04 Total Protein 7.3 gm/dl (6.0-8.3) 04/24/22 05:09 Albumin 2.8 gm/dl (3.4-5.0) L 04/24/22 05:09 Globulin 4.5 gm/dl (2.5-4.0) H 04/24/22 05:09 Albumin/Globulin Ratio 0.6 (0.9-2) L 04/24/22 05:09 Urine Color Yellow 04/19/22 18:50 Urine Appearance Clear (Clear) 04/19/22 18:50 Urine pH 5.5 (4.5-7.5) 04/19/22 18:50 Ur Specific [place] 1.014 (1.000-1.030) 04/19/22 18:50 Urine Protein Trace (Negative) H 04/19/22 18:50 Urine Glucose (UA) Negative (Negative) 04/19/22 18:50 Urine Ketones Negative (Negative) 04/19/22 18:50 Urine Blood 1+ (Negative) H 04/19/22 18:50 Urine Nitrite Negative (Negative) 04/19/22 18:50 Urine Bilirubin Negative (Negative) 04/19/22 18:50 Urine Urobilinogen Negative (Negative) 04/19/22 18:50 Ur Leukocyte Esterase Negative (Negative) 04/19/22 18:50 Urine WBC (Auto) 1-5 /hpf (0-5) 04/19/22 18:50 Urine RBC (Auto) 0-4 /hpf (0-4) 04/19/22 18:50 U Hyaline Cast (Auto) 5-10 /lpf (0-5) H 04/19/22 18:50 U Epithel Cells (Auto) 10-20 /lpf (0-5) H 04/19/22 18:50 Urine Bacteria (Auto) Negative (Negative) 04/19/22 18:50 Urine Yeast Budding (None Prsent) A 04/19/22 18:50 Stl C. diff Tox B Gene Negative Cdiff Gene (Neg) 04/23/22 19:30 SARS-CoV-2, RNA, NAAT NEGATIVE (NEGATIVE) 04/19/22 13:[address] 04/20/22 09:53 CT pelvis w/IV con only HISTORY: 61 years-old Female left buttock wound, eval for abscess patient presents with wound of the left buttock COMPARISON: 04/04/2022 TECHNIQUE: Axial CT images of the pelvis were obtained following the intravenous administration of 94 mL Optiray 350. A dose lowering technique was used consistent with the principals of DMITRIY. FINDINGS: Marginal nodularity of the liver is redemonstrated suspicious for cirrhosis. No hepatic mass identified. Nonspecific gallbladder wall thickening. Atherosclerosis of the aorta without aneurysm. Calcified pelvic lymph nodes are redemonstrated. 4 mm nonobstructing calculus of the inferior pole left kidney. Decompressed urinary bladder with Lozano catheter in place. Postmenopausal endometrium appears to be mildly thickened. No bowel obstruction or bowel wall thickening. Moderate colonic fecal retention. Normal appendix. Small fat filled periumbilical hernia, diastases of 2.7 cm. There is a large left buttock soft tissue wound measuring approximately 3.8 cm transversely. There is a large amount of air and/or packing material extending into the wound into the proximal left thigh. This is most pronounced medially however air and inflammatory stranding tracks into the hamstring and abductor musculature. No drainable fluid collection. Degenerative changes of the spine, pelvis and hips. No acute fracture. No destructive bone lesion. IMPRESSION: 1. Large left buttock ulcer with inflammatory stranding and deep tissue gas. Findings may be secondary to recent intervention, however should be correlated clinically to exclude fasciitis. Additionally, there is evidence of associated cellulitis with myositis. No drainable fluid collection. 2. No bowel obstruction or bowel wall thickening. 3. Left nephrolithiasis. 4. Nonspecific gallbladder wall thickening. Findings could be correlated with ultrasound. 5. Additional findings as above. ACT 112: Negative or not required by law. The above report was generated using voice recognition software. It may contain grammatical, syntax or spelling errors. Electronically signed by: Michael Rodriguez M.D. 04/20/2022 3:01 PM Ankle MRI 04/20/22 09:58 MR ankle LT wo con CLINICAL HISTORY: 61 years-old Female with left lateral ankle wound, eval for osteo. 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 No additional images were obtained. 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 The patient decided to abort the study. No diagnostic images were obtained. The patient will not be charged for this exam. ACT 112: Negative or not required by law. The above report was generated using voice recognition software. It may contain grammatical, syntax or spelling errors. Electronically signed by: Michael Rodriguez M.D. 04/20/2022 1:52 PM Ankle X-Ray 04/20/22 10:20 LEFT ANKLE 3 VIEWS CLINICAL HISTORY: Wound. FINDINGS: 3 views of the left ankle are correlated with CT scan of the left tibia and fibula dated 04/04/2022. The skeletal structures are osteopenic. No fracture is seen. There is no bony erosion or periostitis. The ankle mortise is intact. No joint effusion is identified. There is a large plantar heel spur. Degenerative spurring is seen along the dorsal aspect of the tarsal bones. Soft tissue edema is present throughout the left lower extremity. There is advanced atherosclerotic calcification of the regional arteries. Phleboliths are noted in the calf. No soft tissue gas is seen. IMPRESSION: 1. Soft tissue swelling with no acute bony abnormality identified. 2. Osteopenia with degenerative change and a large heel spur as above. Electronically signed by: Israel Johnson M.D. 04/20/2022 12:24 PM Duplex Scan Lower Extremity Artery 04/20/22 14:59 US arterial duplex LE BI HISTORY: 61 years-old Female non healing wounds chronic nonhealing wounds of the lower extremities COMPARISON: None TECHNIQUE: Multiple real-time sonographic images of the lower extremity arterial structures were obtained assessing grayscale appearance, color and spectral flow FINDINGS: RIGHT: Triphasic waveforms within the common femoral, superficial femoral and anterior tibial arteries with monophasic waveforms extending from the popliteal artery into the lower leg. No arterial occlusion or significantly elevated peak systolic velocities within the right lower extremity. Atherosclerotic plaque is noted. LEFT: Triphasic waveforms within the common femoral, superficial femoral and anterior tibial arteries with monophasic waveforms extending from the popliteal artery into the lower leg. No arterial occlusion or significantly elevated peak systolic velocities within the left lower extremity. Atherosclerotic plaque is noted. Distal portions of the anterior tibial, peroneal, posterior tibial and dorsalis pedis arteries aren't able to be visualized secondary to overlying bandages. ABIs were also unable to be obtained secondary to these same reasons. IMPRESSION: 1. No arterial occlusion or significantly elevated peak systolic velocities identified to suggest high-grade stenosis. 2. Limited exam as above. 3. Monophasic waveforms of the lower legs. ACT 112: Negative or not required by law. The above report was generated using voice recognition software. It may contain grammatical, syntax or spelling errors. Electronically signed by: Michael Rodriguez M.D. 04/21/2022 9:12 AM Chest X-Ray 04/20/22 15:38 XR chest 1V portable CLINICAL HISTORY: hypoxia COMPARISON STUDY: Chest CT April 04, 2022. Chest radiograph April 19, 2022. FINDINGS: Right PICC is in place. No pneumothorax or pleural effusion is present. Cardiomegaly is unchanged. Patient is rotated. Interstitial thickening is again noted. Linear bilateral opacities persist. There is no lobar consolidation. IMPRESSION: 1. Cardiomegaly. Mild interstitial thickening. This may reflect pulmonary vascular congestion without overt pulmonary edema. 2. Linear bilateral opacities which favor atelectasis. An infectious process could appear similar although is considered less likely. ACT 112: Negative or not required by law. Electronically signed by: Cruz Berman M.D. 04/20/2022 5:03 PM
[2022-05-10] MEDS: ENOXAPARIN INJ 40 MG/0.4 ML SYR SQ SCH (16:10)
[2022-05-10] MEDS: MELATONIN 3 MG TAB PO SCH (21:06)
[2022-05-11] MEDS: ACETAMINOPHEN 325 MG TAB PO PRN ×3 (05:05→19:32)
[2022-05-11] MEDS: ceFAZolin 2000MG 2,000 MG/15 ML SYR IV SCH ×3 (05:05→21:09)
[2022-05-11] MEDS: METOPROLOL TARTRATE 25 MG TAB PO SCH ×2 (07:58→20:35)
[2022-05-11] MEDS: ADVANCED PROBIOTIC 1250 MG CAPSULE PO SCH (07:59)
[2022-05-11] MEDS: FUROSEMIDE 20 MG TAB PO SCH (07:59)
[2022-05-11] MEDS: SPIRONOLACTONE 25 MG TAB PO SCH (07:59)
[2022-05-11] MEDS: NYSTATIN POWDER 15GM BTL EXT SCH ×2 (07:59→20:35)
[2022-05-11] MEDS: POTASSIUM CHLORIDE CRTAB 20 MEQ TABCR PO SCH (07:59)
[2022-05-11] MEDS: INSULIN ASPART PER UNIT SC SCH ×4 (09:08→20:46)
[2022-05-11] MEDS: LANTUS PER UNIT CHARGE SQ SCH ×2 (09:09→20:46)
--- NOTE | 2022-05-11 13:10 | Hospitalist Progress Note ---
Date of Service May 11, 2022 Assessment & Plan (1) Pressure ulcers of skin of multiple topographic sites: Plan: Multiple wounds scattered over body - please refer to wound care nurse documentation for full details and photos 04/20/2022 - 5cm x 5cm wound left buttock - large amount of purulent drainage expressed when rolling patient in bed. IV cefepime added to IV daptomycin patient was previously on for MSSA bacteremia. CT obtained that did not show evidence of deep abscess. General surgery consulted for wound debridement; patient underwent debridement in the OR on 04/21. 3cm x 3cm wound left lateral ankle over the malleolus - sloughing tissue pre sent. MRI ordered to evaluate for possible osteomyelitis however patient declined study. Ortho consulted, bedside debridement preformed 04/20. Vascular consult placed by ortho. BLE arterial duplex demonstrates mild diffuse disease BLE. No indications for for vascular surgery intervention. Intra-Op left buttock wound debridement culture shows Enterobacter cloacae Completed Cipro and Flagyl till 05/05/2022. Wound care following. Wound VAC in place to left lateral ankle and left buttock wounds. Waffle boots ordered for ankle offloading. (2) MSSA bacteremia: Plan: Diagnosed during previous admission, currently on IV cefepime. Patient declined JILLIAN to evaluate for endocarditis during previous admission but was agreeable during this hospitalization Patient underwent EGD today to evaluate for varices prior to JILLIAN. EGD shows grade 1, small esophageal varices, okay to proceed with JILLIAN. JILLIAN showed possible vegetation ( Small mobile echodensity adherent to the tip of right coronary aortic valve cusp. ) Plan to give cefazolin till 05/17/2022. Diarrhea Negative C. difficile on 04/23 Seems to be improving Urinary retention Resolved. TOV successful on 04/24. Hypoxia Resolved Intermittent hypoxia noted, patient briefly required 1-2L Continue on Lasix; spironolactone increased to 100 mg once daily. (3) Generalized weakness: (4) Ambulatory dysfunction: Plan: Patient presenting from home with reports of generalized weakness, ambulatory dysfunction, frequent falls. Recently admitted to [facility] 04/04 through 04/14 after not receiving care for many years and was found to have acute diastolic CHF, aortic stenosis, multiple lower extremity wounds, imaging findings suggestive of cirrhosis, and MSSA bacteremia. PT/OT, case management to assist with placement (5) Type 2 diabetes mellitus: Plan: Hgb A1c 10.5 04/04/2022 Newly diagnosed during previous admission, discharged on metformin Utilize Lantus and NovoLog per protocol while hospitalized (6) Aortic stenosis: (7) Chronic diastolic CHF (congestive heart failure): Plan: Appears euvolemic, continue furosemide and spironolactone Patient to establish with [facility] cardiology (8) Cirrhosis: Plan: Appears compensated Imaging during previous admission suggestive of cirrhosis, no prior history of EGD today shows small, grade 1 esophageal varices Patient to follow with [facility] GI as an outpatient (9) DVT prophylaxis: Plan: SQ Lovenox Dispositionpatient was discharged home last admission despite being suggested to go to rehab. Patient would need extensive wound care and IV antibiotic. DC when placement available. Possibly tomorrow. Admission and Anticipated Discharge Date Admission Date: April 19, 2022 Subjective Patient seen and examined at bedside. She is comfortably sitting up on the chair; not in distress. Both wound vacs are in place. Afebrile, normotensive and saturating well in room air. Review of Systems Review of Systems: All systems reviewed & are unremarkable except as noted in Subjective Physical Exam Physical Exam: Constitutional: Awake, alert orient x3. Not in any distress. Morbidly obese. Respiratory: normal respiratory effort, lungs clear to auscultation, no wheeze, rales, rhonchi. Normal insp/exp effort, no accessory muscle use Cardiovascular: RRR, no murmur, no edema Vessels: no JVD or carotid bruit Chest: normal inspection of chest Abdomen: normal bowel sounds, soft, nontender, no hepatosplenomegaly Musculoskeletal: no cyanosis or clubbing, extremities motor strength 5/5 Skin: no rashes, warm and dry normal turgor Neurologic: PERRL, EOMI, accommodation nl, no face palsy, no dysarthria CN's II- XI intact bilaterally and moves all extremities Psychiatric: A+Ox3, euthymic affect Lymphatic: no cervical or axillary lymphadenopathy : deferred Results & Data Results & Data ([facility]) Vital Signs (Past 12 Hours) Vital Signs Temp Pulse Resp BP Pulse Ox O2 Del Method 05/11/22 07:47 Room Air 05/11/22 07:07 36.8 C 92 H 16 118/73 96 Room Air Laboratory Results Laboratory Results WBC 6.68 K/ul (4.8-10.8) 05/09/22 05:42 RBC 4.17 M/uL (3.93-5.22) 05/09/22 05:42 Hgb 13.0 g/dl (12.0-16.0) 05/09/22 05:42 Hct 38.4 % (34.1-44.9) 05/09/22 05:42 MCV 92.1 fL (80.0-100.0) 05/09/22 05:42 MCH 31.2 pg (25.0-34.0) 05/09/22 05:42 MCHC 33.9 g/dL (32.0-36.0) 05/09/22 05:42 RDW Std Deviation 53.0 fL (36.4-46.3) H 05/09/22 05:42 RDW Coeff of Chintan 15.7 % (11.5-14.5) H 05/09/22 05:42 Plt Count 221 K/uL (130-400) 05/09/22 05:42 MPV 10.2 fL (9.4-12.3) 05/09/22 05:42 Immature Gran % (Auto) 0.4 % 05/09/22 05:42 Neut % (Auto) 46.8 % 05/09/22 05:42 Lymph % (Auto) 41.6 % 05/09/22 05:42 [place] % (Auto) 5.5 % 05/09/22 05:42 Eos % (Auto) 4.2 % 05/09/22 05:42 Baso % (Auto) 1.5 % 05/09/22 05:42 Neut # (Auto) 3.12 K/uL (1.4-6.5) 05/09/22 05:42 Lymph # (Auto) 2.78 K/uL (1.2-3.4) 05/09/22 05:42 [place] # (Auto) 0.37 K/uL (0.24-0.82) 05/09/22 05:42 Eos # (Auto) 0.28 K/uL (0-0.50) 05/09/22 05:42 Baso # (Auto) 0.10 K/uL (0-0.2) 05/09/22 05:42 Immature Gran # (Auto) 0.03 K/uL (0.00-0.02) H 05/09/22 05:42 ESR 100 mm/hr (0-30) H 05/11/22 07:01 PT 11.8 Seconds (9.0-12.0) 04/27/22 08:12 INR 1.1 (0.9-1.1) 04/27/22 08:12 Sodium 134 mmol/L (136-145) L 05/09/22 05:42 Potassium 4.3 mmol/L (3.5-5.1) 05/09/22 05:42 Chloride 99 mmol/L (98-107) 05/09/22 05:42 Carbon Dioxide 27 mmol/L (21-32) 05/09/22 05:42 Anion Gap 8 (3-11) 05/09/22 05:42 BUN 37 mg/dl (6-23) H 05/09/22 05:42 Creatinine 0.66 mg/dl (0.6-1.2) 05/09/22 05:42 Est Cr Clr Drug Dosing 111.4 ml/min 05/09/22 05:42 Est GFR ( Amer) 110.5 ml/min 05/09/22 05:42 Est GFR (Non-Af Amer) 95.3 ml/min 05/09/22 05:42 BUN/Creatinine Ratio 56.1 (10-20) H 05/09/22 05:42 Glucose 163 mg/dl (70-99(Fasting)) H 05/09/22 05:42 POC Glucose 206 mg/dl (70-99) H 05/11/22 12:01 Lactate 0.8 mmol/L (0.4-2.0) 04/20/22 16:02 Calcium 9.5 mg/dl (8.5-10.1) 05/09/22 05:42 Magnesium 1.9 mg/dl (1.7-2.4) 05/03/22 05:39 Total Bilirubin 0.4 mg/dl (0.2-1.0) 04/24/22 05:09 AST 23 U/L (13-39) 04/24/22 05:09 ALT 12 U/L (7-52) 04/24/22 05:09 Alkaline Phosphatase 123 U/L (34-104) H 04/24/22 05:09 Total Creatine Kinase 12 U/L (26-192) L 04/22/22 08:03 Troponin I High Sens 13.5 pg/ml (0-14) D 04/19/22 11:33 C-Reactive Protein 1.67 mg/dl (0-0.5) H 04/26/22 06:48 B-Natriuretic Peptide 585 pg/ml (0-100) H 04/19/22 12:04 Total Protein 7.3 gm/dl (6.0-8.3) 04/24/22 05:09 Albumin 2.8 gm/dl (3.4-5.0) L 04/24/22 05:09 Globulin 4.5 gm/dl (2.5-4.0) H 04/24/22 05:09 Albumin/Globulin Ratio 0.6 (0.9-2) L 04/24/22 05:09 Urine Color Yellow 04/19/22 18:50 Urine Appearance Clear (Clear) 04/19/22 18:50 Urine pH 5.5 (4.5-7.5) 04/19/22 18:50 Ur Specific [place] 1.014 (1.000-1.030) 04/19/22 18:50 Urine Protein Trace (Negative) H 04/19/22 18:50 Urine Glucose (UA) Negative (Negative) 04/19/22 18:50 Urine Ketones Negative (Negative) 04/19/22 18:50 Urine Blood 1+ (Negative) H 04/19/22 18:50 Urine Nitrite Negative (Negative) 04/19/22 18:50 Urine Bilirubin Negative (Negative) 04/19/22 18:50 Urine Urobilinogen Negative (Negative) 04/19/22 18:50 Ur Leukocyte Esterase Negative (Negative) 04/19/22 18:50 Urine WBC (Auto) 1-5 /hpf (0-5) 04/19/22 18:50 Urine RBC (Auto) 0-4 /hpf (0-4) 04/19/22 18:50 U Hyaline Cast (Auto) 5-10 /lpf (0-5) H 04/19/22 18:50 U Epithel Cells (Auto) 10-20 /lpf (0-5) H 04/19/22 18:50 Urine Bacteria (Auto) Negative (Negative) 04/19/22 18:50 Urine Yeast Budding (None Prsent) A 04/19/22 18:50 Stl C. diff Tox B Gene Negative Cdiff Gene (Neg) 04/23/22 19:30 SARS-CoV-2, RNA, NAAT NEGATIVE (NEGATIVE) 05/11/22 09:[address] 04/20/22 09:53 CT pelvis w/IV con only HISTORY: 61 years-old Female left buttock wound, eval for abscess patient presents with wound of the left buttock COMPARISON: 04/04/2022 TECHNIQUE: Axial CT images of the pelvis were obtained following the intravenous administration of 94 mL Optiray 350. A dose lowering technique was used consistent with the principals of DMITRIY. FINDINGS: Marginal nodularity of the liver is redemonstrated suspicious for cirrhosis. No hepatic mass identified. Nonspecific gallbladder wall thickening. Atherosclerosis of the aorta without aneurysm. Calcified pelvic lymph nodes are redemonstrated. 4 mm nonobstructing calculus of the inferior pole left kidney. Decompressed urinary bladder with Lozano catheter in place. Postmenopausal endometrium appears to be mildly thickened. No bowel obstruction or bowel wall thickening. Moderate colonic fecal retention. Normal appendix. Small fat filled periumbilical hernia, diastases of 2.7 cm. There is a large left buttock soft tissue wound measuring approximately 3.8 cm transversely. There is a large amount of air and/or packing material extending into the wound into the proximal left thigh. This is most pronounced medially however air and inflammatory stranding tracks into the hamstring and abductor musculature. No drainable fluid collection. Degenerative changes of the spine, pelvis and hips. No acute fracture. No destructive bone lesion. IMPRESSION: 1. Large left buttock ulcer with inflammatory stranding and deep tissue gas. Findings may be secondary to recent intervention, however should be correlated clinically to exclude fasciitis. Additionally, there is evidence of associated cellulitis with myositis. No drainable fluid collection. 2. No bowel obstruction or bowel wall thickening. 3. Left nephrolithiasis. 4. Nonspecific gallbladder wall thickening. Findings could be correlated with ultrasound. 5. Additional findings as above. ACT 112: Negative or not required by law. The above report was generated using voice recognition software. It may contain grammatical, syntax or spelling errors. Electronically signed by: Michael Rodriguez M.D. 04/20/2022 3:01 PM Ankle MRI 04/20/22 09:58 MR ankle LT wo con CLINICAL HISTORY: 61 years-old Female with left lateral ankle wound, eval for osteo. Chronic pain of the left ankle COMPARISON: Left ankle radiographs of same day TECHNIQUE: Bike Technician localizer MR images of the left ankle were performed without contrast. No additional images were obtained. FINDINGS/IMPRESSION: Limited case preparer and liner images were obtained. The patient decided to abort the study. No diagnostic images were obtained. The patient will not be charged for this exam. ACT 112: Negative or not required by law. The above report was generated using voice recognition software. It may contain grammatical, syntax or spelling errors. Electronically signed by: Michael Rodriguez M.D. 04/20/2022 1:52 PM Ankle X-Ray 04/20/22 10:20 LEFT ANKLE 3 VIEWS CLINICAL HISTORY: Wound. FINDINGS: 3 views of the left ankle are correlated with CT scan of the left tibia and fibula dated 04/04/2022. The skeletal structures are osteopenic. No fracture is seen. There is no bony erosion or periostitis. The ankle mortise is intact. No joint effusion is identified. There is a large plantar heel spur. Degenerative spurring is seen along the dorsal aspect of the tarsal bones. Soft tissue edema is present throughout the left lower extremity. There is advanced atherosclerotic calcification of the regional arteries. Phleboliths are noted in the calf. No soft tissue gas is seen. IMPRESSION: 1. Soft tissue swelling with no acute bony abnormality identified. 2. Osteopenia with degenerative change and a large heel spur as above. Electronically signed by: Israel Johnson M.D. 04/20/2022 12:24 PM Duplex Scan Lower Extremity Artery 04/20/22 14:59 US arterial duplex LE BI HISTORY: 61 years-old Female non healing wounds chronic nonhealing wounds of the lower extremities COMPARISON: None TECHNIQUE: Multiple real-time sonographic images of the lower extremity arterial structures were obtained assessing grayscale appearance, color and spectral flow FINDINGS: RIGHT: Triphasic waveforms within the common femoral, superficial femoral and anterior tibial arteries with monophasic waveforms extending from the popliteal artery into the lower leg. No arterial occlusion or significantly elevated peak systolic velocities within the right lower extremity. Atherosclerotic plaque is noted. LEFT: Triphasic waveforms within the common femoral, superficial femoral and anterior tibial arteries with monophasic waveforms extending from the popliteal artery into the lower leg. No arterial occlusion or significantly elevated peak systolic velocities within the left lower extremity. Atherosclerotic plaque is noted. Distal portions of the anterior tibial, peroneal, posterior tibial and dorsalis pedis arteries aren't able to be visualized secondary to overlying bandages. ABIs were also unable to be obtained secondary to these same reasons. IMPRESSION: 1. No arterial occlusion or significantly elevated peak systolic velocities identified to suggest high-grade stenosis. 2. Limited exam as above. 3. Monophasic waveforms of the lower legs. ACT 112: Negative or not required by law. The above report was generated using voice recognition software. It may contain grammatical, syntax or spelling errors. Electronically signed by: Michael Rodriguez M.D. 04/21/2022 9:12 AM Chest X-Ray 04/20/22 15:38 XR chest 1V portable CLINICAL HISTORY: hypoxia COMPARISON STUDY: Chest CT April 04, 2022. Chest radiograph April 19, 2022. FINDINGS: Right PICC is in place. No pneumothorax or pleural effusion is present. Cardiomegaly is unchanged. Patient is rotated. Interstitial thickening is again noted. Linear bilateral opacities persist. There is no lobar consolidation. IMPRESSION: 1. Cardiomegaly. Mild interstitial thickening. This may reflect pulmonary vascular congestion without overt pulmonary edema. 2. Linear bilateral opacities which favor atelectasis. An infectious process could appear similar although is considered less likely. ACT 112: Negative or not required by law. Electronically signed by: Cruz Berman M.D. 04/20/2022 5:03 PM
[2022-05-11] MEDS: ENOXAPARIN INJ 40 MG/0.4 ML SYR SQ SCH (16:29)
[2022-05-11] MEDS: MELATONIN 3 MG TAB PO SCH (20:35)
[2022-05-12] MEDS: ceFAZolin 2000MG 2,000 MG/15 ML SYR IV SCH ×2 (05:50→14:46)
[2022-05-12] MEDS: ACETAMINOPHEN 325 MG TAB PO PRN (05:57)
[2022-05-12] MEDS: ADVANCED PROBIOTIC 1250 MG CAPSULE PO SCH (08:18)
[2022-05-12] MEDS: METOPROLOL TARTRATE 25 MG TAB PO SCH (08:18)
[2022-05-12] MEDS: SPIRONOLACTONE 25 MG TAB PO SCH (08:18)
[2022-05-12] MEDS: POTASSIUM CHLORIDE CRTAB 20 MEQ TABCR PO SCH (08:18)
[2022-05-12] MEDS: FUROSEMIDE 20 MG TAB PO SCH (08:18)
[2022-05-12] MEDS: NYSTATIN POWDER 15GM BTL EXT SCH (08:19)
[2022-05-12] MEDS: LANTUS PER UNIT CHARGE SQ SCH (09:07)
[2022-05-12] MEDS: INSULIN ASPART PER UNIT SC SCH ×2 (09:07→13:11)
--- NOTE | 2022-05-12 10:29 | Discharge Summary ---
Date of Service May 12, 2022 Admission HPI Per Admitting Provider 61-year-old female with PMH chronic diastolic CHF, aortic stenosis, DM type II, MSSA bacteremia, cirrhosis, and other problems listed below who presents to the ED for evaluation of generalized weakness and frequent falls. Patient recently admitted to [facility] 04/04 through 04/14 after not receiving care for many years and was found to have acute diastolic CHF, aortic stenosis, multiple lower extremity wounds, imaging findings suggestive of cirrhosis, and MSSA bacteremia. Patient declined JILLIAN. Patient was discharged on IV daptomycin daily which she has been receiving through [facility]. Patient's daughter and are at the bedside. Patient reports she has had much difficulty getting around since being discharged from the hospital. She is currently using a walker however has had several falls since returning home. Most recent fall was 3 days ago and EMS had to be called to help get the patient off of the floor. Patient denies any injuries, striking her head, or loss of consciousness. Daughter is concerned about buttock wound and left ankle wound. Patient denies chest pain and shortness of breath. No fevers or chills. Denies abdominal pain, nausea, vomiting, diarrhea. No urinary symptoms. In the ED, patient is hemodynamically stable, labs are essentially unremarkable. Patient will be admitted for PT/OT evaluations and likely placement Admission Exam Per Admitting Provider Constitutional: WD/WN, vitals as above + obese Eyes: PERRL, conjunctivae normal, anicteric sclerae ENMT: external ear and nose normal, oropharynx normal Mouth: + poor dentition Respiratory: normal respiratory effort; no respiratory distress Auscultation: + diminished lung sounds (Bilateral bases) Cardiovascular: Rate/Rhythm: regular rate and regular rhythm Heart Sounds: + murmur (Grade 2/6, systolic) Vessels: normal peripheral pulses Extremities: no edema Gastrointestinal (Abdomen): normal bowel sounds, soft, nontender, no hepatosplenomegaly Musculoskeletal: Extremities: no cyanosis and no clubbing Generally weak throughout Skin: no rashes, warm and dry Multiple wounds scattered over lower extremities, stage III pressure ulcers noted to left lateral ankle and left buttock Neurologic: PERRL, EOMI, accommodation nl, no face palsy, no dysarthria Psychiatric: A+Ox3, euthymic affect Principal Diagnosis (1) Pressure ulcers of skin of multiple topographic sites: (2) MSSA bacteremia: (3) Type 2 diabetes mellitus: (4) Cirrhosis: Discharge Exam Constitutional: Awake, alert orient x3. Not in any distress. Morbidly obese. Respiratory: normal respiratory effort, lungs clear to auscultation, no wheeze, rales, rhonchi. Normal insp/exp effort, no accessory muscle use Cardiovascular: RRR, no murmur, no edema Vessels: no JVD or carotid bruit Chest: normal inspection of chest Abdomen: normal bowel sounds, soft, nontender, no hepatosplenomegaly Musculoskeletal: no cyanosis or clubbing, extremities motor strength 5/5 Skin: no rashes, warm and dry normal turgor Neurologic: PERRL, EOMI, accommodation nl, no face palsy, no dysarthria CN's II- XI intact bilaterally and moves all extremities Psychiatric: A+Ox3, euthymic affect Lymphatic: no cervical or axillary lymphadenopathy : deferred Discharge Data Allergies Allergy/AdvReac Type Severity Reaction Status Date / Time No Known Allergies Allergy Verified 04/19/22 10:23 Consultations 04/20/22 08:00 Consult Urology Routine 04/20/22 09:53 Consult General Surgery Routine 04/20/22 09:58 Consult Orthopedic Surgery Routine 04/20/22 14:14 Consult Vascular Surgery Routine 04/20/22 14:37 Consult Infectious Diseases Routine 04/26/22 13:14 Consult Gastroenterology Routine 04/27/22 12:19 Consult Anesthesiology Routine Procedures Performed Operation Date: 04/21/22 12:30 Actual Procedures p Left Buttock Wound Debridement(Left) - Andi Enriquez MD Operation Date: 04/27/22 17:15 Actual Procedures p Esophagogastroduodenoscopy - Mariel Somers DO Operation Date: 04/28/22 07:45 Actual Procedures p Echo Transesophageal - Jerrell Ramon DO s Echo Doppler Complete - Jerrell Ramon DO s Echo Color Flow - Jerrell Ramon DO Ordered Studies 04/20/22 09:53 CT pelvis w/IV con only Routine 04/20/22 09:58 MRI Ankle [MR ankle LT wo con] Routine 04/20/22 14:59 US arterial duplex LE BI Routine 04/21/22 14:19 US - OR guided needle placemen Routine Diabetes Follow up Diabetes Follow-up Needed for HgbA1c >9% Hospital Course (1) Pressure ulcers of skin of multiple topographic sites: Multiple wounds scattered over body Left buttock Pressure Ulcer: CT obtained that did not show evidence of deep abscess. G General surgery consulted for wound debridement; patient underwent debridement in the OR on 04/21 Intra-Op left buttock wound debridement culture shows Enterobacter cloacae. Completed Cipro and Flagyl till 05/05/2022. Wound VAC in place to left lateral ankle and left buttock wounds. Waffle boots ordered for ankle offloading. Left lateral ankle over the malleolus - sloughing tissue present. MRI ordered to evaluate for possible osteomyelitis however patient declined study. Ortho consulted, bedside debridement preformed 04/20. Vascular consult placed by ortho. BLE arterial duplex demonstrates mild diffuse disease BLE. No indications for for vascular surgery intervention. Wound Vac in place Plan: Instructed provided regarding wound care instruction. Patient to follow-up with orthopedic as outpatient on May 19 (2) MSSA bacteremia: Diagnosed during previous admission Patient declined JILLIAN to evaluate for endocarditis during previous admission but was agreeable during this hospitalization Patient underwent EGD on 04/27/2022 to evaluate for varices prior to JILLIAN. EGD shows grade 1, small esophageal varices, JILLIAN on 04/28/2022 showed possible vegetation ( Small mobile echodensity ad herent to the tip of right coronary aortic valve cusp. ) Plan to give cefazolin till 05/17/2022. Obtain weekly CBC, CMP and ESR. Follow- up with cardiology as outpatient. (3) Generalized weakness: (4) Ambulatory dysfunction: Patient presenting from home with reports of generalized weakness, ambulatory dysfunction, frequent falls. Recently admitted to [facility] 04/04 through 04/14 after not receiving care for many years and was found to have acute diastolic CHF, aortic stenosis, multiple lower extremity wounds, imaging findings suggestive of cirrhosis, and MSSA bacteremia. discharged to [facility] (5) Type 2 diabetes mellitus: Hgb A1c 10.5 04/04/2022 Newly diagnosed during previous admission Place on Metformin and Glargine 15U HS Follow up with PCP (6) Chronic diastolic CHF (congestive heart failure): on Lasix and spironolactone Follow up with Cardiology (7) Cirrhosis: Appears compensated, Likely due to GALICIA Imaging during previous admission suggestive of cirrhosis, EGD today shows small, grade 1 esophageal varices Patient to follow with [facility] as an outpatient Total Time Total Time Spent Total Time Spent (In Minutes): 45 Total Time Includes: Examination of the Patient, Discharge Planning, Medication Reconciliation, Communication With Other Providers and Other Discharge Plan Discharge Items Patient Disposition: Transfer Long-Term Fac Reason For Visit: FALLS,AMBULATORY DYSFUNCTION Discharge Diagnosis: (1) Pressure ulcers of skin of multiple topographic sites: (2) MSSA bacteremia: (3) Type 2 diabetes mellitus: (4) Cirrhosis: Activity: Resume your previous activity Weightbearing: Full weightbearing Non-emergency contact: Primary Care Provider Call non-emergency contact if: you have any medication questions and your symptoms worsen Follow-up/Referrals: Christopher Castro MD [Primary Care Provider] - Moises Brooks MD [Surgeon] - 05/19/22 12:00 pm Diet: Carb Consistent or DM2 Addtl Attending Provider Instructions: You were treated for following condition during your hospitalization; 1) Pressure ulcer over buttock, left lateral ankle -You were treated with antibiotic during the hospitalization. Wound care instructions: Irrigate wounds with saline. Apply Skin-Prep to periphery. Allow to dry. Apply drip to periphery and for bridging. Apply foam, sealed with drape and apply track pad. Set wound VAC to -125 mmHg for dressing with black foam, -150 mmHg for dressing with white foam. If either VAC fails, remove dressing, irrigate with saline using 35 cc syringe and 18 gauze blunt needle. Apply Aquacel AG and Optifoam to left lateral ankle and left buttock, changed daily. Reposition frequently. Apply Tegaderm to the left anterior leg wounds. Change every 2 to 3 days and as needed. You have follow-up with orthopedic doctor Dr. Saleem on May 19 at 12 PM. 2) MSSA Bacteremia Continue on IV cefazolin 2 g every 8 hours till May 17, 2022. Obtain weekly CBC, CMP and ESR Echo showed possible vegetation and aortic valve Cusp Follow-up with cardiology as outpatient 3) Type 2 diabetes mellitus Continue on metformin 1000 mg twice daily. You were restarted on insulin glargine 15 units at at bedtime. Monitor your blood glucoses regularly. Follow-up with your primary care doctor 4) Cirrhosis You underwent endoscopy which showed small grade 1 esophageal varices. You need to follow-up with [facility] Provider Instructions: Orthopedic Instructions: Weight bear as tolerated left lower extremity Avoid any pressure on the left ankle wound. Elevate with pillows as needed for swelling. Wound care as per wound care nurse. If you have a wound vac it will be changed every Tuesday, Tuesday and Tuesday by home health nurse, your nurse at your facility or at the wound care clinic. Call [phone] Brooks on any increased redness, warmth, drainage, wound concerns or need to reschedule appointment. Follow up with Dr. Brooks as scheduled. Pending Studies at Discharge: No Stand-Alone Forms: My [facility] Skilled Items Patient informed of condition?: Yes DNR: No Discharge Level of Care: Skilled Communicable Disease: No Discharge Prognosis: Stable Lines: PICC Urinary Catheter: No Medications and DC Order Prescriptions: New potassium chloride 20 mEq Tablet,Er Particles/Crystals 20 meq PO QAM Qty: 30 0RF cefazolin 2 gram recon soln 2 g IV Q8H Qty: 25 0RF Rx Instructions: till 05/17/2022 spironolactone 50 mg tablet 50 mg PO DAILY Qty: 30 0RF acetaminophen [Tylenol] 325 mg capsule 325 mg PO Q6H PRN (Reason: fever or pain) Qty: 30 0RF furosemide [Lasix] 20 mg tablet 20 mg PO DAILY Qty: 30 0RF polyethylene glycol 3350 [Miralax] 17 gram/dose powder 17 g PO DAILY PRN (Reason: constipation) Qty: 119 0RF insulin glargine 100 unit/mL (3 mL) insulin pen 15 unit subcut PM Qty: 15 0RF nystatin 100,000 unit/gram cream 1 applic topical BID Qty: 15 0RF Continued (DME) blood-glucose meter [OneTouch Ultra2 Meter] [facility] [place] See Rx Instructions .Route Qty: 1 0RF Rx Instructions: As directed (DME) OneTouch Ultra Test Strip See Rx Instructions .Route Qty: 50 0RF Rx Instructions: As directed for glucose monitoring once daily (DME) lancets [OneTouch Delica Lancets] 33 gauge [facility] [place] See Rx Instructions .Route Qty: 100 0RF Rx Instructions: As directed for once daily glucose monitoring metformin 500 mg Tablet Extended Release 24 Hr 1,000 mg PO BIDM Qty: 120 0RF metoprolol tartrate 25 mg Tablet 25 mg PO BID Qty: 60 0RF Discontinued daptomycin 500 mg recon soln 650 mg IV Q24H Qty: 34 0RF Rx Instructions: administer over 30 mins Last day of Tx will be 05/17 furosemide 40 mg Tablet 40 mg PO QAM Qty: 30 0RF spironolactone 25 mg Tablet 25 mg PO DAILY Qty: 30 0RF Discharge Orders: Discharge Order (Routine); Ordered 05/12/22 Ordered By: Narciso Gotti Admission Data Admit Date/Time: 04/19/22 13:31 Attending Provider: Narciso Gotti Admit Provider: Baljeet Hale Primary Care Provider: Christopher Castro Other Providers: [facility] ; [facility] ; [facility] [place] ; Andi Enriquez ; Moises Brooks ; Elie Gann ; Brissa Howard ; Christophe Andrade ; Martina Horn ; Carlton Wynne ; Lisa Carrasco ; Kimberly Gunn ; Ciera Nath ; Yoel Arshad ; Nicol Jarrett ; Mariel Somers ; Narciso Gotti ; Pascale Burdick ; Gina Stack ; Emilee Newberry ; Ginny Carpenter ; Blossom Desir ; Srinath Josue ; Robe Herbert ; Fredo Marc ; Dino Donovan ; Brianna Donovan ; Michael Cole ; Sera Diaz ; Twin Allan ; Walter Powers ; Keenan Quintanilla ; Mario Berman ; Shira Suh ; Christopher Montalvo ; Caren Quinonez ; Lili Montalvo ; Leif Mckeon ; Mariel Duffy ; Brian Aguillon ; Yary Carlton ; Dena Fairchild ; Daren Best ; Felicita Liu ; Mady Espino ; Charleen Proctor ; Emani Gregg ; Ej Gregg V ; Froilan Royal ; Gina Ochoa ; Fernandez Chin ; Briseyda Lim ; Ej Aldridge ; Rakesh Suh ; Nicho Gómez ; Justyna Locke ; Cyndi Albert ; Ej Lyn ; Tigre Enriquez ; Dung Romero ; Cleveland Berman ; Wendy Mendoza ; Hiren Gonzalez ; Sharon Jeter ; Cesar Ray ; Hiren Thompson ; Srinath Ramírez Jr ; Shell Chase ; Lorena Lewis ; Nay Whyte ; Daren Schwartz ; Ginny Acuna ; Dino Melgar ; Sreekanth Rey I. ; Elysia Rollins. ; Lorena Miller ; Anh Goodwin ; Lucia Ramirez ; [facility] ; [facility] ; [facility]
--- NOTE | 2022-05-12 10:50 | Progress Notes ---
DATE OF SERVICE: 05/12/2022. Left ankle wound is evaluated. Pedal pulses are not palpable. There is no erythema or significant s welling. Good ankle range of motion. Wound VAC in place, which is removed. Maceration is minimal a nd improved. There is a good granulating tissue with fibrinous exudate. The wound depth is diminish ed, but overall diameter does not appear to be substantially changed. There is still a little bit of undermining 5 mm inferiorly. No exposed bone or tendon. With her permission, I debrided with a cur ette around the margins and depth to the wound to create some bleeding. Gauze dressing was applied. While she is here in the hospital, we will continue with the wound VAC to try to get this to seal jennifer n. I spoke with wound care nurse. Otherwise, would then likely transition to Aquacel Ag and Optifoa m type dressing. DISPOSITION: For extended care facility or rehab. We will see her back in the office in a week or so. She will n eed wound care followup at discharge. Job ID: [id number]
== END 2022-05-12 14:50 | DRG 571 ==
LOC: ED 10:54 → 3W 13:31 → SUATTDRO 13:31 → 3W 14:26

== ENCOUNTER 2022-07-03 01:08 | Inpatient (IN) ==
--- NOTE | 2022-07-03 02:17 | Emergency Department Note ---
Impression & Plan Acute pain of left knee ED Provider Note ED Provider Note NAME: CARLOS GALDAMEZ AGE:62 SEX: Female : 1960 ARRIVES VIA: Private vehicle INFORMANT: Patient ED PROVIDER(s): Marianna Soares DO CHIEF COMPLAINT: Left knee pain HPI: This is a 62-year-old female who presents emergency department due to concern for worsening left knee pain today. Patient with multiple other ongoing medical problems including diabetes and poor wound healing for which she follows with the wound care clinic. Patient states she was at the wound care clinic earlier today for evaluation of her sacral wound and left ankle wound. She states she does typically wear a boot on her left lower extremity and has to hold her left lower extremity at the knee and lower leg in order to move her entire leg due to the increased weight of the boot. She states this makes it difficult to get in and out of the car. She states this evening after going to her appointment earlier today and coming home she began to notice increased pain at the left knee. She states the pain worsened and she felt she could not bear any weight on it. She states she did try to take some Tylenol without any improvement so she contacted her daughter to bring her to the emergency room. She denies fevers, chills, swelling of the knee, redness of the knee or increased lower extremity edema. Patient denies any trauma or falls. No history of gout. PAST MEDICAL HISTORY:See Below PAST SURGICAL HISTORY:See Below FAMILY HISTORY:See Below SOCIAL HISTORY:See Below HOME MEDICATIONS:See Below ALLERGIES:See Below VITALS:See Below PHYSICAL EXAMINATION: GENERAL: alert, well appearing, well nourished, no distress, non-toxic EYE EXAM: normal conjunctiva, PERRL and EOM's grossly intact OROPHARYNX: no exudate, no erythema, lips, buccal mucosa, and tongue normal and mucous membranes are moist NECK: supple, no nuchal rigidity, no adenopathy, non-tender LUNGS: Clear to auscultation. Normal chest wall mechanics, no w/r/r HEART: no murmurs, S1 normal and S2 normal ABDOMEN: abdomen soft, non-tender, normo-active bowel sounds, no masses, no rebound or guarding. BACK: Back is symmetrical on inspection and there is no deformity, no midline tenderness, no CVA tenderness. SKIN: no rashes, petechiae, orbruising UPPER EXTREMITIES: upper extremities are grossly normal. FROM, nml pulses b/l. LOWER EXTREMITIES: No pitting edema. FROM, nml pulses b/l. Mild edema noted at the left knee compared to the right, no increased warmth, no overlying erythema. Left lateral malleolus with dressing intact from wound care visit earlier today. NEURO EXAM: Normal sensorium, cranial nerves II-XII grossly intact, normal speech, no facial droop,nogross weakness of arms, no gross weakness of legs. Gross sensation intact. No ataxia. Vital Signs: reviewed and remarkable Differential Diagnosis: Fracture, subluxation, dislocation, contusion, ligamentous injury, neurovascular, compartment syndrome, rhabdomyolysis, as well as other pathologies. MEDICAL DECISION MAKING: This is a 62-year-old female who presents with increased left knee pain and concern for difficulty walking. Patient with complicated past medical history including diabetes and recent difficulty with wound healing is being managed by the wound care clinic. No prior issues of wounds or knee problems. X-ray unremarkable, given persistent pain despite Toradol and Voltaren patient sent for CT. CT did reveal effusion, significant arthritis as well as bone spur. Patient was noted to have a mild leukocytosis although unclear if this is from her other chronic wounds versus new inflammatory or infectious process at that left knee. Uric acid also found to be elevated. Clinical exam not consistent with acute septic arthritis, and given other possible etiologies for the pain and effusion, we discussed differential diagnosis at bedside and option for aspiration for definitive testing. Patient would like to avoid aspiration if possible and I feel that is reasonable at this time, however is concerned for the pain in her ability to walk as she already uses a walker. Patient was given a dose of IV morphine. Due to concern for pain, need for additional treatment of multiple etiologies for her pain, case discussed with on-call hospitalist for additional evaluation and management. Consultation(s): 08: Discussed with Dr Dawson, hospitalist. ER Treatment Provided: See below 0640: Updated patient and daughter bedside. We discussed possible etiology of her left knee pain and options for disposition. Patient states she is still h aving pain despite prior medications and is unable to walk. Diagnostics Interpreted By Me: -ECG: [] -Cardiac Monitoring: An order was placed for continuous cardiac monitoring. The monitor shows a rate of 92 with normal sinus rhythm. -Laboratory studies: As stated above and show below. -Imaging studies: X-ray left knee 3 view: No acute fracture or dislocation Triage Nursing Note Reviewed Prior/Outside Records Reviewed Procedures: [] Critical Care: [] Past Med/Surg History Medical History Acute metabolic encephalopathy Ambulatory dysfunction Aortic stenosis FRIDA 1.1cm2 04/04/22 Chronic diastolic CHF (congestive heart failure) Cirrhosis Dilated cardiomyopathy Generalized weakness Mitral regurgitation Morbid obesity with BMI of 50.0-59.9, adult MSSA bacteremia Peripheral arterial disease Pressure ulcers of skin of multiple topographic sites Type 2 diabetes mellitus Urinary retention Wound of left buttock Surgical History No significant past surgical history Family History Other Family history non-contributory Social History Smoking Status: Never smoker Second Hand Exposure: No; Hx Alcohol Use: No Hx Substance Use: No Preferred Language: Gabonese Communication Ability: Effective Senior Marketing Coordinator Required: No Beliefs That Will Affect Care: None marital status: Current Living Situation: Spouse Current Living Situation Comment: one story set up, 1 step to enter How many Children do You have: 1 Feels Safe at Home: Yes Safety Concerns: Feels Safe At This Time Assistive Devices: Walker and Wheelchair Allergies Allergies Allergy/AdvReac Type Severity Reaction Status Date / Time No Known Allergies Allergy Verified 07/03/22 01:35 Home Meds Home Medications Medication Instructions Recorded Confirmed insulin glargine 100 unit/mL (3 20 unit subcut PM 07/03/22 07/03/22 mL) subcutaneous pen loperamide 2 mg tablet 2 mg PO DIRECTED PRN Diarrhea 07/03/22 07/03/22 melatonin 5 mg tablet 5 mg PO HS 07/03/22 07/03/22 metformin 500 mg tablet,extended 500 mg PO BIDM 07/03/22 07/03/22 release 24 hr multivitamin 1 tab PO DAILY 07/03/22 07/03/22 nystatin 100,000 unit/gram topical 1 applic topical BID PRN Rash 07/03/22 07/03/22 powder Previous Rx's Medication Instructions Recorded blood sugar diagnostic (OneTouch #50 ea 04/14/22 Ultra Test strips) blood-glucose meter (OneTouch #1 ea 04/14/22 Ultra2 Meter) lancets 33 gauge (OneTouch Delica #100 ea 04/14/22 Lancets) acetaminophen 325 mg capsule 325 mg PO Q6H PRN fever or pain 05/12/22 (Tylenol) #30 caps furosemide 20 mg tablet (Lasix) 20 mg PO DAILY #30 tabs 05/12/22 metoprolol tartrate 25 mg tablet 25 mg PO BID #60 tabs 05/12/22 polyethylene glycol 3350 17 17 g PO DAILY PRN constipation 05/12/22 gram/dose oral powder (Miralax) #119 grams potassium chloride 20 mEq 20 meq PO QAM #30 tabs 05/12/22 tablet,extended release(part/cryst) spironolactone 50 mg tablet 50 mg PO DAILY #30 tabs 05/12/22 Results & Data (ED) Vital Signs Vital Signs - 24 hr 07/03/22 07:29 07/03/22 08:00 07/03/22 08:00 Pulse Rate 94 H 112 H Pulse Rate from SpO2 Sensor 94 H 112 H Respiratory Rate 22 23 Blood Pressure 119/71 Blood Pressure Mean 87 Pulse Oximetry 94 91 07/03/22 09:55 07/03/22 09:55 07/03/22 10:00 Pulse Rate 117 H Pulse Rate from SpO2 Sensor 118 H Respiratory Rate 22 Blood Pressure 112/67 103/64 Blood Pressure Mean 82 77 Pulse Oximetry 92 07/03/22 10:00 Pulse Rate 115 H Pulse Rate from SpO2 Sensor 115 H Respiratory Rate 23 Blood Pressure Blood Pressure Mean Pulse Oximetry 92 Laboratory Data 07/03/22 02:18 07/03/22 02:18 Lab Results 07/03/22 07/03/22 07/03/22 Range/Units 02:18 02:18 02:18 WBC 13.03 H (4.8-10.8) K/ul RBC 3.83 L (4.20-5.40) M/uL Hgb 11.9 L (12.0-16.0) g/dl Hct 34.1 L (37.0-47.0) % MCV 89.0 (80.0-100.0) fL MCH 31.1 (25.0-34.0) pg MCHC 34.9 (32.0-36.0) g/dL RDW Std Deviation 45.0 (36.4-46.3) fL RDW Coeff of Chintan 13.9 (11.5-14.5) % Plt Count 422 H (130-400) K/uL MPV 9.0 L (9.4-12.4) fL Immature Gran % (Auto) 0.5 % Neut % (Auto) 70.1 % Lymph % (Auto) 21.9 % [place] % (Auto) 5.9 % Eos % (Auto) 1.2 % Baso % (Auto) 0.4 % Neut # (Auto) 9.15 H (1.40-6.50) K/uL Lymph # (Auto) 2.85 (1.2-3.4) K/uL [place] # (Auto) 0.77 H (0.11-0.59) K/uL Eos # (Auto) 0.15 (0-0.50) K/uL Baso # (Auto) 0.05 (0-0.2) K/uL Immature Gran # (Auto) 0.06 (0.01-0.20) K/uL ESR 101 H (0-30) mm/hr Sodium 132 L (136-145) mmol/L Potassium 4.5 (3.5-5.1) mmol/L Chloride 97 L (98-107) mmol/L Carbon Dioxide 25 (21-32) mmol/L Anion Gap 10 (3-11) BUN 30 H (6-23) mg/dl Creatinine 0.91 (0.6-1.2) mg/dl Est Cr Clr Drug Dosing Not Reportable Est GFR ( Amer) 78.4 ml/min Est GFR (Non-Af Amer) 67.6 ml/min BUN/Creatinine Ratio 33.0 H (10-20) Glucose 162 H (70-99(Fasting)) mg/dl Uric Acid 10.7 H (2.6-7.2) mg/dl Calcium 9.2 (8.5-10.1) mg/dl Total Bilirubin 0.6 (0.2-1.0) mg/dl AST 24 (13-39) U/L ALT 24 (7-52) U/L Alkaline Phosphatase 275 H (34-104) U/L C-Reactive Protein 23.18 H (0-0.5) mg/dl Total Protein 8.5 H (6.0-8.3) gm/dl Albumin 3.0 L (3.4-5.0) gm/dl Globulin 5.5 H (2.5-4.0) gm/dl Albumin/Globulin Ratio 0.5 L (0.9-2) SARS-CoV-2, RNA, NAAT (NEGATIVE) 07/03/22 Range/Units 09:50 WBC (4.8-10.8) K/ul RBC (4.20-5.40) M/uL Hgb (12.0-16.0) g/dl Hct (37.0-47.0) % MCV (80.0-100.0) fL MCH (25.0-34.0) pg MCHC (32.0-36.0) g/dL RDW Std Deviation (36.4-46.3) fL RDW Coeff of Chintan (11.5-14.5) % Plt Count (130-400) K/uL MPV (9.4-12.4) fL Immature Gran % (Auto) % Neut % (Auto) % Lymph % (Auto) % [place] % (Auto) % Eos % (Auto) % Baso % (Auto) % Neut # (Auto) (1.40-6.50) K/uL Lymph # (Auto) (1.2-3.4) K/uL [place] # (Auto) (0.11-0.59) K/uL Eos # (Auto) (0-0.50) K/uL Baso # (Auto) (0-0.2) K/uL Immature Gran # (Auto) (0.01-0.20) K/uL ESR (0-30) mm/hr Sodium (136-145) mmol/L Potassium (3.5-5.1) mmol/L Chloride (98-107) mmol/L Carbon Dioxide (21-32) mmol/L Anion Gap (3-11) BUN (6-23) mg/dl Creatinine (0.6-1.2) mg/dl Est Cr Clr Drug Dosing Est GFR ( Amer) ml/min Est GFR (Non-Af Amer) ml/min BUN/Creatinine Ratio (10-20) Glucose (70-99(Fasting)) mg/dl Uric Acid (2.6-7.2) mg/dl Calcium (8.5-10.1) mg/dl Total Bilirubin (0.2-1.0) mg/dl AST (13-39) U/L ALT (7-52) U/L Alkaline Phosphatase (34-104) U/L C-Reactive Protein (0-0.5) mg/dl Total Protein (6.0-8.3) gm/dl Albumin (3.4-5.0) gm/dl Globulin (2.5-4.0) gm/dl Albumin/Globulin Ratio (0.9-2) SARS-CoV-2, RNA, NAAT NEGATIVE (NEGATIVE) Administered Medications Furosemide (Furosemide 20 Mg Tab) 20 mg PO DAILY ERAN Stop: 08/02/22 15:28 Last Admin: 07/03/22 16:42 Dose: 20 mg Documented By: NADIA Vancomycin HCl 1,000 mg/ (Sodium Chloride) 270 mls @ 200 mls/hr IV Q12H ERAN; Protocol Stop: 08/15/22 05:59 Last Admin: 07/04/22 06:17 Dose: 200 mls/hr Documented By: ANGELA Sodium Chloride (Nss 1000ml) 1,000 mls @ 100 mls/hr IV .Q10H ERAN Stop: 08/02/22 16:14 Last Admin: 07/04/22 04:52 Dose: 100 mls/hr Documented By: Infusion: 07/04/22 02:44 Dose: 100 mls/hr Documented By: Admin: 07/03/22 16:44 Dose: 100 mls/hr Documented By: NADIA Insulin Aspart (Insulin Aspart Per Unit) 0 units SC ACHS ERAN Stop: 08/02/22 16:29 Last Admin: 07/03/22 20:43 Dose: Not Given Documented By: Admin: 07/03/22 20:43 Dose: Not Given Documented By: ANGELA Insulin Glargine (Lantus Per Unit Charge) 10 units SQ PM ERAN Stop: 08/02/22 20:59 Last Admin: 07/03/22 20:52 Dose: 10 units Documented By: ANGELA Co-signed By: TP Melatonin (Melatonin 3 Mg Tab) 6 mg PO HSZ ERAN Stop: 08/02/22 21:59 Last Admin: 07/03/22 21:05 Dose: 6 mg Documented By: ANGELA Metoprolol Tartrate (Metoprolol Tartrate 25 Mg Tab) 25 mg PO BID [facility] Stop: 08/02/22 20:59 Last Admin: 07/03/22 21:06 Dose: 25 mg Documented By: ANGELA Spironolactone (Spironolactone 25 Mg Tab) 50 mg PO DAILY ERAN Stop: 08/02/22 15:28 Last Admin: 07/03/22 16:42 Dose: 50 mg Documented By: NADIA Tramadol HCl (Tramadol Hcl 50 Mg Tablet) 50 mg PO Q4H PRN PRN Reason: Pain Stop: 08/02/22 16:07 Last Admin: 07/03/22 20:44 Dose: 50 mg Documented By: ANGELA Discontinued Medications Colchicine (Colchicine 0.6 Mg Tab) 1.2 mg PO NOW ONE Stop: 07/03/22 14:44 Last Admin: 07/03/22 15:28 Dose: 1.2 mg Documented By: NADIA Diclofenac Sodium (Diclofenac Sod 1% Gel 100 Gm Tube) 2 gm EXT NOW STA; Protocol Stop: 07/03/22 03:03 Last Admin: 07/03/22 03:14 Dose: 2 gm Documented By: HAKEEM Gadobutrol (Gadobutrol 30ml Vial) 10 ml IV ONCE ONE Stop: 07/03/22 17:42 Last Admin: 07/03/22 17:42 Dose: 10 ml Documented By: MARTY Ceftriaxone Sodium 2,000 mg/ (Dextrose) 70 mls @ 100 mls/hr IV NOW STA; Protocol Stop: 07/03/22 15:31 Last Infusion: 07/03/22 16:13 Dose: 0 mls/hr Documented By: RSKay Admin: 07/03/22 15:28 Dose: 100 mls/hr Documented By: NADIA Vancomycin HCl 2,500 mg/ (Sodium Chloride) 550 mls @ 180 mls/hr IV 1530 ONE Stop: 07/03/22 18:33 Last Infusion: 07/03/22 19:47 Dose: 0 mls/hr Documented By: Admin: 07/03/22 16:43 Dose: 180 mls/hr Documented By: RSL Ketorolac Tromethamine (Ketorolac Tromethamine 15 Mg/Ml Vial) 10 mg IV NOW ONE Stop: 07/03/22 03:03 Last Admin: 07/03/22 03:14 Dose: 10 mg Documented By: LRS Morphine Sulfate (Morphine Sulfate 2 Mg/Ml Carp) 2 mg IV NOW STA Stop: 07/03/22 06:50 Last Admin: 07/03/22 07:14 Dose: 2 mg Documented By: JNabila Imaging Data Radiologist's Impression: Knee X-Ray 07/03/22 01:54 XR knee LT 1 or 2V routine HISTORY: 62 years-old Female knee pain acute left knee pain COMPARISON: CT left knee of same day TECHNIQUE: 3 views of the left knee FINDINGS: Moderate medial with moderate to severe patellofemoral and severe medial compartment osteoarthritis no acute fracture, dislocation or osseous erosion. Demineralized appearance of the bones. [id number] joint effusion with Coulter's cyst. Arterial calcifications. IMPRESSION: 1. No acute fracture or dislocation. 2. Tricompartmental osteoarthritis, severe within the medial compartment. 3. Small to moderate joint effusion. ACT 112: Negative or not required by law. The above report was generated using voice recognition software. It may contain grammatical, syntax or spelling errors. Electronically signed by: Michael Rodriguez M.D. 07/03/2022 7:[address] 07/03/22 03:44 CT knee LT wo con HISTORY: 62 years-old Female incr pain/swelling acute pain and swelling of the left knee COMPARISON: CT left tibia and fibula radiographs 04/04/2022 TECHNIQUE: Multiple axial CT images of the left knee were obtained without the use of IV contrast. A dose lowering technique was used consistent with the principals of ALARA. FINDINGS: Tricompartmental osteoarthritis, severe within the medial compartment, moderate to severe within the patellofemoral joint and moderate within the lateral compartment.. Small to moderate joint effusion. 3.2 x 3.9 x 5.3 cm Coulter's cyst. Extensive arterial calcifications. Mild to moderate muscular atrophy. No acute fracture, dislocation or osseous erosion identified. IMPRESSION: 1. No acute fracture or dislocation. 2. Tricompartmental osteoarthritis of the knee redemonstrated, severe within the medial compartment. 3. Small to moderate joint effusion with Coulter's cyst. ACT 112: Negative or not required by law. The above report was generated using voice recognition software. It may contain grammatical, syntax or spelling errors. Electronically signed by: Michael Rodriguez M.D. 07/03/2022 7:[address] extremity left lower: Advanced degenerative arthropathy of the knee in all compartments with large spur formation and there is a bony overgrowth posteriorly. No acute fracture or dislocation. Moderate to large joint effusion. Radiologist: Gold Moser MD Discharge Plan Visit Data Chief Complaint: Leg Injury/Pain Stated Complaint: LEG PAIN ED Provider: Marianna Soares Discharge Problem: Acute pain of left knee Patient Disposition: Admitted As Inpatient Discharge Instructions Interventions: ED Discharge Assessment Last Done: 07/03/22 15:30
[2022-07-03 02:32] LABS: Basophils # (auto) 0.05 K/uL (0-0.2); Basophils % (auto) 0.4 %; Eosinophils # (auto) 0.15 K/uL (0-0.50); Eosinophils % (auto) 1.2 %; Hematocrit (blood only) 34.1 % (37.0-47.0); Hemoglobin 11.9 g/dl (12.0-16.0); Immature Granulocytes # (auto) 0.06 K/uL (0.01-0.20); Immature Granulocytes % (auto) 0.5 %; Lymphocytes # (auto) 2.85 K/uL (1.2-3.4); Lymphocytes % (auto) 21.9 %; Mean Corpuscular Hemoglobin 31.1 pg (25.0-34.0); Mean Corpuscular Hgb Conc 34.9 g/dL (32.0-36.0); Monocytes # (auto) 0.77 K/uL (0.11-0.59); Monocytes % (auto) 5.9 %; Neutrophils # (auto) 9.15 K/uL (1.40-6.50); Neutrophils % (auto) 70.1 %; Platelet Count 422 K/uL (130-400); RDW Coefficient of Variation 13.9 % (11.5-14.5); Red Blood Count 3.83 M/uL (4.20-5.40); White Blood Count 13.03 K/ul (4.8-10.8)
[2022-07-03 02:51] LABS: Anion Gap 10 (3-11); Bilirubin,Total 0.6 mg/dl (0.2-1.0); Calcium 9.2 mg/dl (8.5-10.1); Carbon Dioxide 25 mmol/L (21-32); Chloride 97 mmol/L (98-107); Potassium 4.5 mmol/L (3.5-5.1); Sodium 132 mmol/L (136-145)
[2022-07-03 02:57] LABS: Alanine Aminotransferase 24 U/L (7-52); Albumin Globulin Ratio 0.5 (0.9-2); Alkaline Phosphatase 275 U/L (34-104); Aspartate Aminotransferase 24 U/L (13-39); Blood Urea Nitrogen 30 mg/dl (6-23); C Reactive Protein 23.18 mg/dl (0-0.5); Est GFR (African American) 78.4 ml/min; Est GFR (Non-African American) 67.6 ml/min; Globulin 5.5 gm/dl (2.5-4.0); Glucose 162 mg/dl (70-99(Fasting)); Total Protein 8.5 gm/dl (6.0-8.3)
[2022-07-03] MEDS ORDERED: DICLOFENAC SOD 1% GEL 100 GM TUBE EXT STA (03:02)
[2022-07-03] MEDS ORDERED: KETOROLAC TROMETHAMINE 15 MG/ML VIAL IV ONE (03:02)
[2022-07-03 03:29] LABS: Uric Acid 10.7 mg/dl (2.6-7.2)
[2022-07-03] MEDS ORDERED: MoRPHine SULFATE 2 MG/ML CARP IV STA (06:49)
--- NOTE | 2022-07-03 07:23 | CT Scan Report ---
CT knee LT wo con HISTORY: 62 years-old Female incr pain/swelling acute pain and swelling of the left knee COMPARISON: CT left tibia and fibula radiographs 04/04/2022 TECHNIQUE: Multiple axial CT images of the left knee were obtained without the use of IV contrast. A dose lowering technique was used consistent with the principals of DMITRIY. FINDINGS: Tricompartmental osteoarthritis, severe within the medial compartment, moderate to severe within the patellofemoral joint and moderate within the lateral compartment.. Small to moderate joint effusion. 3.2 x 3.9 x 5.3 cm Coulter's cyst. Extensive arterial calcifications. Mild to moderate muscular atrophy . No acute fracture, dislocation or osseous erosion identified. IMPRESSION: 1. No acute fracture or dislocation. 2. Tricompartmental osteoarthritis of the knee redemonstrated, severe within the medial compartment. 3. Small to moderate joint effusion with Coulter's cyst. ACT 112: Negative or not required by law. The above report was generated using voice recognition software. It may contain grammatical, syntax o r spelling errors. Electronically signed by: Michael Rodriguez M.D. 07/03/2022 7:21 AM
--- NOTE | 2022-07-03 07:26 | XRay Report ---
XR knee LT 1 or 2V routine HISTORY: 62 years-old Female knee pain acute left knee pain COMPARISON: CT left knee of same day TECHNIQUE: 3 views of the left knee FINDINGS: Moderate medial with moderate to severe patellofemoral and severe medial compartment osteoarthritis n o acute fracture, dislocation or osseous erosion. Demineralized appearance of the bones. [id number] erate joint effusion with Coulter's cyst. Arterial calcifications. IMPRESSION: 1. No acute fracture or dislocation. 2. Tricompartmental osteoarthritis, severe within the medial compartment. 3. Small to moderate joint effusion. ACT 112: Negative or not required by law. The above report was generated using voice recognition software. It may contain grammatical, syntax o r spelling errors. Electronically signed by: Michael Rodriguez M.D. 07/03/2022 7:25 AM
--- NOTE | 2022-07-03 09:23 | History & Physical Report ---
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 Left Knee pain/Effusion -Will ask for orthopedic evaluation for consideration of aspiration -WBC elevated (new compared to 05/25/22), ESR persistently elevated. CRP elevated to 23. Patient with known stage 4 sacral ulcer and worsening left ankle ulcer (previously stage 3 now stage 4) which are potential nidus' for infection -History of MSSA bacteremia. History of MRSA growth on sacral wound -Pending further evaluation, will start vancomycin and ceftriaxone -Uric Acid noted to be elevated to 10.7 Stage 4 Sacral Ulcer Stage 4 Left ankle ulcer -Follows at wound clinic -WOCN consult while here -Recent concern by clinic provider of osteomyelitis of her left ankle with plan for MRI. Will obtain MRI left ankle while here Chronic diastolic CHF Aortic Stenosis Histor of Aortic Valve MSSA endocarditis -Difficult to assess fluid status on exam. Will obtain CXR and BNP -continue lasix 20mg PO daily, Metoprolol 25mg BID, spironolactone 50mg daily IDDM -HA1c 10.5% -Lantus 20 units daily--continue, Metformin 500mg BID--will hold -correctional scale insulin DVT ppx SC Lovenox Admit as inpatient, I expect she will need at least 2 midnight stay History of Present Illness Chief Complaint: left knee pain Primary Care Provider: Christopher Castro MD Ms Phyllis Mccollum is a 62 year old female with history of morbid obesity, stage 3 sacral wound with wound vac and stage 4 left ankle ulcer follows at the wound clinic, history also of mitral regurgitation, aortic valve endocarditis, peripheral arterial disease, [id number] dependent, Chronic diastolic CHF, cirrhosis presents today with left knee pain. Patient is a poor historian and is somewhat groggy from medications received in ER. History obtained primarily from chart review. Patient reports always having left knee pain but that yesterday it became severe and intolerable so she came to the ER. She has a known sacral ulcer (wound vac) and left ankle ulcer which she follows at [facility]. Left ankle ulcer she reports has been having increased drainage and there was concern it may be infected but she is not on antibiotics currently but per Wound Care notes an MRI is planned. She denies fever/chills/nausea/vomiting/chest pain or shortness of breath. She denies a personal history of gout but reports that her father and sister both has gout. Of note, she was admitted here 04/04-04/14/22 after not having received healthcare in over 30 years and during that hospitalization was found to have sacral ulcer, lower extremity wounds, MSSA bacteremia, new onset CHF, respiratory failure, cirrhosis. She was eventually discharged home on 6 weeks of daptomycin IV daily (administered via [facility]) after refusing rehab. She was later readmitted 04/19-05/12/22 due to frequent falls and ambulatory dysfunction and later discharged to [facility] on cefazolin to complete antibiotic course. Allergies Allergy/AdvReac Type Severity Reaction Status Date / Time No Known Allergies Allergy Verified 07/03/22 01:35 Home Medications Medication Instructions Recorded Confirmed Type blood sugar diagnostic (LamppostTouch #50 ea 04/14/22 04/19/22 Rx Ultra Test strips) blood-glucose meter (OneTouch #1 ea 04/14/22 04/19/22 Rx Ultra2 Meter) lancets 33 gauge (OneTouch Delica #100 ea 04/14/22 04/19/22 Rx Lancets) acetaminophen 325 mg capsule 325 mg PO Q6H PRN fever or pain 05/12/22 07/03/22 Rx (Tylenol) #30 caps furosemide 20 mg tablet (Lasix) 20 mg PO DAILY #30 tabs 05/12/22 07/03/22 Rx metoprolol tartrate 25 mg tablet 25 mg PO BID #60 tabs 05/12/22 07/03/22 Rx polyethylene glycol 3350 17 17 g PO DAILY PRN constipation 05/12/22 07/03/22 Rx gram/dose oral powder (Miralax) #119 grams potassium chloride 20 mEq 20 meq PO QAM #30 tabs 05/12/22 07/03/22 Rx tablet,extended release(part/cryst) spironolactone 50 mg tablet 50 mg PO DAILY #30 tabs 05/12/22 07/03/22 Rx insulin glargine 100 unit/mL (3 20 unit subcut PM 07/03/22 07/03/22 History mL) subcutaneous pen loperamide 2 mg tablet 2 mg PO DIRECTED PRN Diarrhea 07/03/22 07/03/22 History melatonin 5 mg tablet 5 mg PO HS 07/03/22 07/03/22 History metformin 500 mg tablet,extended 500 mg PO BIDM 07/03/22 07/03/22 History release 24 hr multivitamin 1 tab PO DAILY 07/03/22 07/03/22 History nystatin 100,000 unit/gram topical 1 applic topical BID PRN Rash 07/03/22 07/03/22 History powder Past Med/Surg History Medical History Acute metabolic encephalopathy Ambulatory dysfunction Aortic stenosis FRIDA 1.1cm2 04/04/22 Chronic diastolic CHF (congestive heart failure) Cirrhosis Dilated cardiomyopathy Generalized weakness Mitral regurgitation Morbid obesity with BMI of 50.0-59.9, adult MSSA bacteremia Peripheral arterial disease Pressure ulcers of skin of multiple topographic sites Type 2 diabetes mellitus Urinary retention Wound of left buttock Surgical History No significant past surgical history Family History Other Family history non-contributory Social History Smoking Status: Never smoker Second Hand Exposure: No; Hx Alcohol Use: No Hx Substance Use: No Preferred Language: [place] Communication Ability: Effective 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 Beliefs That Will Affect Care: None marital status: Current Living Situation: Spouse Current Living Situation Comment: one story set up, 1 step to enter How many Children do You have: 1 Feels Safe at Home: Yes Assistive Devices: None Review of Systems Review of Systems: As above in HPI, remaining ROS othewise negative Physical Exam Physical Exam: Morbidly obese, drowsy but arousable, no acute distress ENMT: Normocephalic, atraumatic, neck thick Respiratory: Breathing comfortably on room air, no wheezing/rhonchi/rales Cardiovascular: +systolic murmur loudest on right upper sternal border, no rubs/gallops, regular rhythm Gastrointestinal (Abdomen): Soft, non tender, non distended Musculoskeletal: +left knee swelling that is tender to touch - erythema Skin: left ankle ulcer with no surrounding erythema, Known sacral ulcer with wound vac (I could not examine due to patient being unable to reposition herself) Neurologic: drowsy but arousable, spontaneously moving extremities, poor historian Results & Data Results & Data ([facility]) Vital Signs (Past 12 Hours) Vital Signs Temp Pulse Pulse Resp BP BP Pulse Ox 07/03/22 05:00 88 18 115/68 96 07/03/22 03:00 92 H 18 101/72 95 07/03/22 01:22 36.7 C 93 H 18 97/71 L 98 O2 Del Method 07/03/22 05:00 Room Air 07/03/22 03:00 Room Air 07/03/22 01:22 Room Air
[2022-07-03] MEDS ORDERED: VANCOMYCIN CONSULT ACTIVE PRN ×2 (14:37→15:29)
--- NOTE | 2022-07-03 14:39 | Progress Notes ---
DATE OF SERVICE: 07/03/2022 SUBJECTIVE: Phyllis is 62. She is known to me from outpatient and inpatient treatment of left ankle wound over the past several months. Starting yesterday, she began developing progressively worsening left knee pain. She reports that she was able to ambulate a short distance prior to that, but her v isitor suggested otherwise. She was not able to ambulate today because of knee pain. She denies any injuries or falls. She has not felt ill or had any chills, fevers, or sweats. She has never had a gout attack before, but that does run in her family. She is mildly tachycardic, afebrile. White count 13, hemoglobin 12, hematocrit 34, and platelets 422 . Sed rate 101. PRP is noted. Uric acid is 10.7, which is elevated. Her C-reactive protein is 23. COVID negative. X-rays and CT scan of the knee are reviewed and these demonstrate significant oste oarthritis in the right knee, mostly in the medial compartment. There is no acute injury. Positive vascular calcifications and positive effusion. Reports are noted. Her health history is significant for a chronic left ankle wound as well as a sacral decubitus. She has type 2 diabetes and peripheral artery disease. Her medications are noted and include spironolact one, potassium, polyethylene glycol, nystatin, multivitamin, metoprolol, metformin, melatonin, anna mide, insulin, furosemide, and Tylenol. There are no known allergies. OBJECTIVE: On examination, her left ankle wound is benign in appearance. A dressing is in place. S he has no surrounding erythema or drainage, and compared to when I saw this last couple of weeks ago, it is steadily improving with a granulating base and no significant drainage. Her DP pulse is trace . She can flex and extend her ankle and toes, invert and joanna with normal strength. She is able to do a straight leg raise on the left, but struggles. She can bend her right knee 0 to 90 and her lef t knee about 0 to perhaps 40 degrees. The left knee is slightly warm and it is not erythematous. Th ere is some tenderness to palpation over the suprapatellar pouch; otherwise, the knee is nontender. She has a positive effusion. No pain with movement of the hip. With her permission, I did a sterile double prep of the left knee. A preprocedural time-out was perf ormed and I aspirated 20 mL of opaque fluid from the left knee. This was then sent for a stat gram s tain and culture plus a crystal analysis and a cell count with differential. Pressure held until bleeding stopped and then a Band-Aid was applied. IMPRESSION: Multiple medical problems, diabetes, multiple wounds, and left knee pain with effusion. PLAN: Findings are discussed. The differential diagnoses would include gout, pseudogout, and bacter ial septic arthritis. Aspirate the knee to further evaluate for these possibilities and intervene ac cordingly. She is being admitted to the hospital, which I would recommend. She can be started on so me broad-spectrum antibiotics. Can also initiate treatment for gout. We will discuss with medicine. We will follow up on her cell count with differential. I will make her n.p.o. for right now, but orlin butler may not have any useful information until tomorrow. No blood thinners. Job ID: [id number]
[2022-07-03] MEDS ORDERED: COLCHICINE 0.6 MG TAB PO ONE (14:43)
[2022-07-03] MEDS ORDERED: Nursing to Pharmacy Communication SCH (14:45)
[2022-07-03] MEDS ORDERED: cefTRIAXone SODIUM 2,000 MG in DEXTROSE 5% 50 ML IV STA (14:50)
[2022-07-03] MEDS ORDERED: Patient's WEIGHT Needed SCH (15:15)
[2022-07-03] MEDS ORDERED: VANCOMYCIN HCL 1,000 MG in SODIUM CHLORIDE 0.9% 250 ML IV STA (15:29)
[2022-07-03] MEDS ORDERED: NYSTATIN POWDER 15GM BTL EXT PRN (15:29)
[2022-07-03] MEDS ORDERED: VANCOMYCIN HCL 2,500 MG in SODIUM CHLORIDE 0.9% 500 ML IV ONE (15:30)
[2022-07-03] MEDS ORDERED: GLUCAGON FOR INJ 1 MG VIAL SQ PRN (16:04)
[2022-07-03] MEDS ORDERED: GLUCOSE 10 TAB/TUBE PO PRN (16:04)
[2022-07-03] MEDS ORDERED: CARBOHYDRATES FOR HYPOGLYCEMIA PO PRN (16:04)
[2022-07-03] MEDS ORDERED: DEXTROSE 50% 50 ML SYRINGE IV PRN (16:04)
[2022-07-03] MEDS ORDERED: GLUCOSE 40% GEL 15 GM TUBE PO PRN (16:04)
--- NOTE | 2022-07-03 16:36 | XRay Report ---
XR chest 1V portable HISTORY: 62 years-old Female pre-op preoperative exam. COMPARISON: Chest radiograph 04/20/2022 TECHNIQUE: AP view of the chest FINDINGS: Cardiac silhouette is enlarged. Mild ill-defined subsegmental right basilar densities. No pneumothora x, pleural effusion or overt pulmonary edema. Degenerative changes of the shoulders and spine. IMPRESSION: 1. Cardiomegaly without overt pulmonary edema. 2. Mild right basilar densities favoring atelectasis. A mild nonspecific pneumonitis could appear sim ilarly. ACT 112: Negative or not required by law. The above report was generated using voice recognition software. It may contain grammatical, syntax o r spelling errors. Electronically signed by: Michael Rodriguez M.D. 07/03/2022 4:35 PM
[2022-07-03] MEDS: FUROSEMIDE 20 MG TAB PO SCH (16:42)
[2022-07-03] MEDS: SPIRONOLACTONE 25 MG TAB PO SCH (16:42)
[2022-07-03] MEDS: SODIUM CHLORIDE 0.9% 1000ML 1,000 ML IV SCH (16:44)
[2022-07-03 16:57] LABS: Appearance Synovial Fluid Turbid; Color Synovial Fluid Yellow; Mononuclear WBC Synovial 8.2 %; Polynuclear WBC Synovial 91.8 %; RBC Synovial Fluid Auto 20000 /uL; Source Synovial Fluid Left Knee; WBC Synovial Fluid Auto 157760 /ul (0-200)
[2022-07-03] MEDS ORDERED: GADOBUTROL 30ML VIAL IV ONE (17:41)
--- NOTE | 2022-07-03 18:02 | Magnetic Resonance Report ---
MR ankle LT wo/w con HISTORY: 62 years-old Female evaluate for osteo chronic soft tissue ulcer of the lateral left ankle COMPARISON: Left ankle radiographs 06/18/2022 TECHNIQUE: Multiplanar multisequence MRI of the left ankle was obtained both with and without the use of 10 cc Gadavist FINDINGS: Motion degraded exam. Moderate marrow edema of the talus, anterior to mid calcaneus and distal fibula with mild to moderate marrow edema of the medial malleolus.There is mild cortical indistinctness of the distal fibula. Small tibiotalar and subtalar joint effusions. Atrophy of the intrinsic musculatur e with intramuscular edema and mild enhancement. There is a cutaneous ulcer of the lateral ankle with skin thickening, subcutaneous and deep tissue e nancy and enhancement. Peripheral enhancement within the posterior joint recess measuring up to 9 mm o n image 21 series 11 and 8 mm anterolateral to the talus on image 24 series 11. 9 mm enhancing focus is noted along the anterior margin of the peroneus brevis inframalleolar segment on image 30 series 1 1. Additional peripherally enhancing fluid in the flexor hallucis, image 23 series 11. There is mild tenosynovitis of the peroneus brevis and longus with areas of mild peripheral enhanceme nt adjacent to the peroneus longus and image 17. The visualized flexor and extensor tendons appear in tact. The lateral ligaments are suboptimally visualized. IMPRESSION: 1. Cutaneous ulcer of the lateral ankle with adjacent cellulitis changes. Subcentimeter peripherally enhancing fluid collections of the ankle as above are noted abutting the peroneal and flexor hallucis tendons and also lateral to the talus suspicious for small abscesses with associated infectious teno synovitis. 2. Mild cortical indistinctness of the distal fibula with marrow edema is suspicious for early change s of osteomyelitis. 3. Small tibiotalar joint effusion. Correlate clinically to exclude infectious arthropathy. ACT 112: Negative or not required by law. The above report was generated using voice recognition software. It may contain grammatical, syntax o r spelling errors. Electronically signed by: Michael Rodriguez M.D. 07/03/2022 6:00 PM
--- NOTE | 2022-07-03 18:52 | Pharmacy Report ---
[facility]acy [facility] Short Note - Date of Service July 03, 2022 - Assessment & Plan Assessment 62 year old F with history of morbid obesity and diabetes is started on Vancomycin for stage 4 sacral wound and stage 4 left ankle ulcer and L knee pain/effusion. Patient was recently admitted in hospital in 03/2022 and 04/2022. Recently was on Daptomycin and Ancef. She also has a history of MSSA bacteremia and MRSA sacral wound. Currently with possibility of Osteomyelitis. Day #1 of antimicrobial therapy. Plan Vancomycin * Loading dose: 2500 mg IV x 1 * Maintenance dose: 1000 mg IV every 12 hours * Regimen is predicted to achieve target AUC/SAMMI of 400-600 mg/L.hr * Trough level ordered for: 07/05/22 before dose at 6 am. Pharmacy will continue to follow and will adjust dose/frequency as necessary. Thank you.
[2022-07-03] MEDS: INSULIN ASPART PER UNIT SC SCH (20:43)
[2022-07-03] MEDS: traMADol HCL 50 MG TABLET PO PRN (20:44)
[2022-07-03] MEDS: LANTUS PER UNIT CHARGE SQ SCH (20:52)
[2022-07-03] MEDS ORDERED: NON-FORMULARY MEDICATION (Insulin Glargine 100 unit/mL (3 mL) insulin pen) SQ SCH (21:00)
[2022-07-03] MEDS: MELATONIN 3 MG TAB PO SCH (21:05)
[2022-07-03] MEDS: METOPROLOL TARTRATE 25 MG TAB PO SCH (21:06)
[2022-07-04] MEDS: SODIUM CHLORIDE 0.9% 1000ML 1,000 ML IV SCH ×4 (04:52→21:13)
[2022-07-04] MEDS ORDERED: VANCOMYCIN HCL 1,000 MG in SODIUM CHLORIDE 0.9% 250 ML IV SCH (06:00)
[2022-07-04] MEDS ORDERED: ONDANSETRON INJ 2 MG/ML 2 ML VIAL ONE (07:06)
[2022-07-04] MEDS ORDERED: PROPOFOL IV EMULSION 10 MG/ML 20 ML VIAL IV ONE (07:06)
[2022-07-04] MEDS ORDERED: DEXAMETHASONE SOD INJ 4 MG/ML VIAL ONE (07:06)
[2022-07-04] MEDS ORDERED: fentaNYL citrate 100 MCG/2 ML VIAL ONE (07:06)
[2022-07-04] MEDS ORDERED: MIDAZOLAM HCL 1 MG/ML 2ML VIAL ONE (07:06)
[2022-07-04] MEDS ORDERED: EPINEPHrine INJ 1 MG/ML AMP ONE (07:13)
[2022-07-04] MEDS ORDERED: LIDOCAINE 1%/EPINEPHRINE 1:100,000 50 ML VIAL ONE (07:13)
[2022-07-04 07:23] LABS: Basophils # (auto) 0.05 K/uL (0-0.2); Basophils % (auto) 0.5 %; Eosinophils # (auto) 0.15 K/uL (0-0.50); Eosinophils % (auto) 1.4 %; Hematocrit (blood only) 28.5 % (37.0-47.0); Hemoglobin 9.8 g/dl (12.0-16.0); Immature Granulocytes # (auto) 0.05 K/uL (0.01-0.20); Immature Granulocytes % (auto) 0.5 %; Lymphocytes # (auto) 2.83 K/uL (1.2-3.4); Lymphocytes % (auto) 25.7 %; Mean Corpuscular Hemoglobin 30.7 pg (25.0-34.0); Mean Corpuscular Hgb Conc 34.4 g/dL (32.0-36.0); Mean Corpuscular Volume 89.3 fL (80.0-100.0); Monocytes # (auto) 0.79 K/uL (0.11-0.59); Monocytes % (auto) 7.2 %; Neutrophils # (auto) 7.13 K/uL (1.40-6.50); Neutrophils % (auto) 64.7 %; Platelet Count 371 K/uL (130-400); RDW Coefficient of Variation 13.8 % (11.5-14.5); Red Blood Count 3.19 M/uL (4.20-5.40)
[2022-07-04 07:45] LABS: INR 1.1 (0.9-1.1); Prothrombin Time 11.7 Seconds (9.0-12.0)
[2022-07-04] MEDS: INSULIN ASPART PER UNIT SC SCH ×4 (07:51→20:35)
[2022-07-04 07:53] LABS: BUN Creatinine Ratio 28.4 (10-20); Est GFR (African American) 90.2 ml/min; Est GFR (Non-African American) 77.8 ml/min; Potassium 3.8 mmol/L (3.5-5.1)
--- NOTE | 2022-07-04 08:35 | History & Physical Bridge Note ---
Date of Service July 04, 2022 History & Physical Bridge Note I have examined the patient, reviewed the History & Physical and in the interval since the performance of the History & Physical I have noted the following changes of clinical significance: no changes noted
--- NOTE | 2022-07-04 08:45 | Anesthesiology Consultation ---
Date of Service July 04, 2022 Assessment & Plan (1) Encounter for pre-operative examination: Chart Review Chart Review: Acceptable Risk for Surgery History Surgery Operation Date: 07/04/22 08:00 Proposed Procedures p Arthroscopy Knee Meniscal Repair(Left) - Moises Brooks MD Height/Weight Height: 5 ft 3 in Weight: 101.8 kg Allergies Allergy/AdvReac Type Severity Reaction Status Date / Time No Known Allergies Allergy Verified 07/03/22 01:35 Medications Home Medications Medication Instructions Recorded Confirmed Last Taken blood sugar diagnostic (OneTouch #50 ea 04/14/22 04/19/22 Unknown Ultra Test strips) blood-glucose meter (OneTouch #1 ea 04/14/22 04/19/22 Unknown Ultra2 Meter) lancets 33 gauge (OneTouch Delica #100 ea 04/14/22 04/19/22 Unknown Lancets) acetaminophen 325 mg capsule 325 mg PO Q6H PRN fever or pain 05/12/22 07/03/22 Unknown (Tylenol) #30 caps furosemide 20 mg tablet (Lasix) 20 mg PO DAILY #30 tabs 05/12/22 07/03/22 07/02/22 metoprolol tartrate 25 mg tablet 25 mg PO BID #60 tabs 05/12/22 07/03/22 0 07/02/22 polyethylene glycol 3350 17 17 g PO DAILY PRN constipation 05/12/22 07/03/22 Unknown gram/dose oral powder (Miralax) #119 grams potassium chloride 20 mEq 20 meq PO QAM #30 tabs 05/12/22 07/03/22 07/02/22 tablet,extended release(part/cryst) spironolactone 50 mg tablet 50 mg PO DAILY #30 tabs 05/12/22 07/03/22 07/02/22 insulin glargine 100 unit/mL (3 20 unit subcut PM 07/03/22 07/03/22 07/02/22 mL) subcutaneous pen loperamide 2 mg tablet 2 mg PO DIRECTED PRN Diarrhea 07/03/22 07/03/22 Unknown melatonin 5 mg tablet 5 mg PO HS 07/03/22 07/03/22 07/02/22 metformin 500 mg tablet,extended 500 mg PO BIDM 07/03/22 07/03/22 07/02/22 release 24 hr multivitamin 1 tab PO DAILY 07/03/22 07/03/22 07/02/22 nystatin 100,000 unit/gram topical 1 applic topical BID PRN Rash 07/03/22 07/03/22 Unknown powder Active Medications Generic Name Dose Route Start Last Admin Trade Name Freq PRN Reason Stop Dose Admin Furosemide 20 mg 07/03/22 15:29 07/03/22 16:42 Furosemide 20 Mg Tab PO 08/02/22 15:28 20 mg DAILY ERAN Administration Vancomycin HCl 1,000 mg/ 270 mls @ 200 mls/hr 07/04/22 06:00 07/04/22 07:51 Sodium Chloride IV 08/15/22 05:59 Infused Q12H ERAN Infusion Protocol Sodium Chloride 1,000 mls @ 100 mls/hr 07/03/22 16:15 07/04/22 04:52 Nss 1000ml IV 08/02/22 16:14 100 mls/hr .Q10H ERAN Administration Insulin Aspart 0 units 07/03/22 16:30 07/04/22 07:51 Insulin Aspart Per Unit SC 08/02/22 16:29 Not Given ACHS ERAN Insulin Glargine 10 units 07/03/22 21:00 07/03/22 20:52 Lantus Per Unit Charge SQ 08/02/22 20:59 10 units PM ERAN Administration Melatonin 6 mg 07/03/22 22:00 07/03/22 21:05 Melatonin 3 Mg Tab PO 08/02/22 21:59 6 mg HSZ ERAN Administration Metoprolol Tartrate 25 mg 07/03/22 21:00 07/03/22 21:06 Metoprolol Tartrate 25 Mg Tab PO 08/02/22 20:59 25 mg BID ERAN Administration Spironolactone 50 mg 07/03/22 15:29 07/03/22 16:42 Spironolactone 25 Mg Tab PO 08/02/22 15:28 50 mg DAILY ERAN Administration Tramadol HCl 50 mg 07/03/22 16:08 07/03/22 20:44 Tramadol Hcl 50 Mg Tablet PO 08/02/22 16:07 50 mg Q4H PRN Administration Pain Past Medical History Medical History (Updated 07/04/22 @ 08:42 by Srinath Josue MD) Acute metabolic encephalopathy Ambulatory dysfunction Aortic stenosis FRIDA 1.1cm2 04/04/22 Chronic diastolic CHF (congestive heart failure) Cirrhosis Dilated cardiomyopathy Generalized weakness Mitral regurgitation MSSA bacteremia Obesity Peripheral arterial disease Pressure ulcers of skin of multiple topographic sites Type 2 diabetes mellitus Urinary retention Wound of left buttock Past Family History Family History Other Family history non-contributory Past Surgical History Surgical History No significant past surgical history Social History Smoking Status: Never smoker Hx Alcohol Use: No Hx Substance Use: No substance use type: does not use Physical Exam Vital Signs Last Vital Signs Temp 36.9 C 07/04/22 07:27 Pulse 90 07/04/22 07:27 Resp 18 07/04/22 07:27 BP 130/73 07/04/22 07:27 Pulse Ox 94 07/04/22 07:27 O2 Del Method 07/04/22 07:27 Testing Laboratory Results 07/04/22 07:06 07/04/22 07:06 PT 11.7 Seconds (9.0-12.0) 07/04/22 07:06 INR 1.1 (0.9-1.1) 07/04/22 07:06 07/03/22 14:13 Gram Stain - Final Knee,Left 07/04/22 07:31 POC Glucose 89 Electrocardiogram Date: 04/19/22 Findings: + ST @ (102) ant and inf OR - no significant change from prior Chest X-Ray Date: 07/03/22 Findings: + cardiomegaly Echocardiogram Date: 04/05/22 EF: 50-55% Valvular Disease: + (1.1cm2 with peak grad 37mmHg)
[2022-07-04 08:54] LABS: A calco-baum cmplx NotReported Not Detected (NotDetected); Bact fragilis Not Reported Not Detected (NotDetected); C auris Not Reported Not Detected (NotDetected); Calbicans Not Reported Not Detected (NotDetected); Candida glabrata Not Reported Not Detected (NotDetected); Candida krusei Not Reported Not Detected (NotDetected); Cneoformans/gatti Not Reported Not Detected (NotDetected); Cparapsilosis Not Reported Not Detected (NotDetected); Ctropicalis Not Reported Not Detected (NotDetected); E cloacae compx Not Reported Not Detected (NotDetected); Efaecalis Not Reported Not Detected (NotDetected); Efaecium Not Reported Not Detected (NotDetected); Enterobacterales Not Reported Not Detected (NotDetected); Escherichia coli Not Reported Not Detected (NotDetected); H influenzae Not Reported Not Detected (NotDetected); K aerogenes Not Reported Not Detected (NotDetected); Koxytoca Not Reported Not Detected (NotDetected); Kpneumoniae grp Not Reported Not Detected (NotDetected); Lmonocyt Not Reported Not Detected (NotDetected); N meningitidis Not Reported Not Detected (NotDetected); P aeruginosa Not Reported Not Detected (NotDetected); Proteus spp Not Reported Not Detected (NotDetected); Salmonella spp Not Reported Not Detected (NotDetected); Smarcescens Not Reported Not Detected (NotDetected); Staph lugdunensis Not Reported Not Detected (NotDetected); Staph spp. Not Reported DETECTED (NotDetected); Staphaureus Not Reported DETECTED (NotDetected); Staphepi Not Reported Not Detected (NotDetected); Staphylococcus spp. DETECTED (NotDetected); Stenmaltophilia Not Reported Not Detected (NotDetected); Strep agal(GrpB) Not Reported Not Detected (NotDetected); Strep pneum Not Reported Not Detected (NotDetected); Strep pyog (GrpA) Not Reported Not Detected (NotDetected); Strep spp Not Reported Not Detected (NotDetected)
[2022-07-04] MEDS ORDERED: PROMETHAZINE HCL 6.25 MG in SODIUM CHLORIDE 0.9% 50 ML IV PRN (08:59)
[2022-07-04] MEDS ORDERED: ATROPINE SULFATE 0.1 MG/ML 10ML SYR IV PRN (08:59)
[2022-07-04] MEDS ORDERED: ONDANSETRON INJ 2 MG/ML 2 ML VIAL IV PRN (08:59)
[2022-07-04] MEDS ORDERED: ENOXAPARIN INJ 40 MG/0.4 ML SYR SQ SCH (09:00)
[2022-07-04 09:12] LABS: mecAC+MREJ Resistant Gene MRSA DETECTED (NotDetected)
[2022-07-04] MEDS ORDERED: EpINEphrine HCL INJ 1 MG/ML 1ML SYRINGE ONE (09:16)
[2022-07-04] MEDS ORDERED: ceFAZolin 330 MG/ML 1 GM VIAL ONE (09:22)
[2022-07-04] MEDS ORDERED: ROCURONIUM BROMIDE 10 MG/ML 5 ML VIAL IV ONE (09:22)
[2022-07-04] MEDS ORDERED: ETOMIDATE 2 MG/ML 20 ML VIAL IV ONE (09:22)
[2022-07-04 10:43] LABS: Mononuclear WBC Synovial 11.1 %; Polynuclear WBC Synovial 88.9 %
[2022-07-04 10:44] LABS: Appearance Synovial Fluid Bloody; Color Synovial Fluid Red; RBC Synovial Fluid Auto 567000 /uL; Source Synovial Fluid Other; WBC Synovial Fluid Auto 9780 /ul (0-200)
[2022-07-04] MEDS ORDERED: HYDROmorphone INJ 1 MG/ML SYRINGE ONE (11:03)
[2022-07-04] MEDS: HYDROmorphone INJ 1 MG/ML SYRINGE IV PRN ×3 (11:04→11:20)
--- NOTE | 2022-07-04 11:24 | Operative Report ---
Post Operative Report Pre & Post Diagnosis Operation Date: 07/04/22 08:00 Pre-Op Diagnosis: Septic arthritis of left knee Post-Op Diagnosis: Septic arthritis of left knee I identified the patient and participated in the time-out.: Yes Procedure Operation Date: 07/04/22 08:00 Actual Procedures p Left Knee Arthroscopy Irrigation and Debridement(Left) - Moises Brooks MD Surgeon Moises Brooks MD Personal Care Worker None Estimated Blood Loss 50 Findings Consistent with Post-Op Diagnosis Specimens Left ankle aspiration, left knee fluid. Both sent for Gram stain and routine culture and sensitivity Drains Hemovac x1 Anesthesia Type General Regional Complications none Disposition Accompanied Patient To Recovery: No Disposition: Recovery Room Indications Phyllis is 62. She developed increased left knee pain 2 days ago. She was admitted to the hospital yesterday. She had evidence of acute inflammation possibly consistent with infection. The left knee was aspirated and the white blood cell count came back with over 150,000 white cells per mL. Suspicious for infection. I recommended arthroscopic washout and she agreed to proceed. Phyllis has chronic wounds of the buttock and left ankle. These are being treated as an outpatient. Today just prior to surgery I came to be aware that an MRI had been ordered by medicine. This MRI showed abnormality of the distal fibula possibly consistent with early osteomyelitis. Additionally there were fluid collections noted about the ankle including an ankle joint effusion. Previous x-rays in my office had been negative. I evaluated the open wound in the holding area. There was an increased amount of opaque serous drainage from the wound. Lateral malleoli are wound. Does not probe to bone and has a gra nulating base. Palpating along the anterior ankle joint anterior and lateral and distal to the wound causes fluid to ooze out. She was able to flex and extend her ankle joint. The ankle was not swollen it was not red and she did not complain of any ankle pain. After she was anesthetized I decided it would be prudent to obtain a sample of fluid from her left ankle joint in order to see if there is any evidence of infection given the MRI findings, clinical findings and drainage. Additionally a swab culture I think from the wound clinic has grown out MRSA from the ankle. Description of Procedure Informed consent obtained. Patient identified. She identified the left knee as the operative site. I marked with my initials. Preoperative surgical timeout performed. Preop dose of IV antibiotics was given. She was taken to the operating room positioned supine on the OR table the anesthetic was administered. Examination the knee revealed mild increased warmth no erythema a large effusion and range of motion 0/30/90 with gravity. She had a firm endpoint preventing further knee extension. The knee was stable. The knee was prescribed and then prepped and draped in the usual sterile fashion. A tourniquet was applied to the left thigh and inflated after gravity exsanguination of the limb to 250 mmHg. A lateral post was used for stressing the knee. DVT prophylaxis with mechanical devices intraoperatively and postoperatively chemoprophylaxis likely with Lovenox. Prior to the start of the surgical procedure I evaluated the left ankle wound as described above. I then sterilely prepped the anteromedial ankle gutter with alcohol and then inserted an 18-gauge spinal needle and aspirated about 3 cc of bloody fluid from the left ankle joint. This was sent for cell count with differential Gram stain and routine culture. An Optifoam was placed over the ankle wound and it was excluded from the operative field with a impervious stockinette. Inferolateral viewing. Portal superior lateral outflow portal and inferomedial working portals were established. Diagnostic arthroscopy was performed. Mobility about the knee was substantially limited by severe degenerative change. There was substantial synovitis present throughout the knee which is debrided as best as possible while wherever encountered this included the anterior compartment medial and lateral gutters and suprapatellar pouch area. There were grade 4 changes of the medial compartment in particular. Grade 2 and 3 changes with some smaller areas of grade 4 in the patellofemoral and lateral compartments. Both menisci were degenerative Cullen damaged and frayed. I debrided the meniscus minimally to remove any fragments. The cruciate ligaments appear to be intact. The shaver and fluid were run into the medial and lateral compartments medial and lateral gutters and suprapatellar pouch. I could not gain access to the posterior compartments of the knee due to her arthritis. A total volume of 9 to 10 L of saline was run through the knee. I then inserted under direct visualization a large Hemovac drain through the superior lateral cannula and removed. The tourniquet was then let down after 50 minutes of inflation and pressure was held to achieve hemostasis. I then closed the portals with 4-0 nylon not sewing in the drain. The leg was cleaned with wet and dry sponges and a soft dry dressing was applied Xeroform 4 x 4's ABD soft wrap and Nikita wrap. She was then placed into a knee immobilizer. She was awakened from anesthesia without difficulty and taken to the recovery room in stable condition. Specimens are as mentioned above counts are correct blood loss is estimated to be 50 cc. At the conclusion of the operation spoke with patient's informed him of my findings and discussed postoperative plan. In regards to her knee we will keep the drain in for a day or 2 and keep the knee immobilizer on while she is has the drain in. She may weight-bear as tolerated and PT and OT will be consulted. She can be out of bed to chair. We will coordinate care with medicine but she likely will need some degree of intravenous antibiotics and may require special access and possibly even a consultation with infectious disease. In regards to her ankle we will follow-up on the aspiration. Given the findings I am concerned regarding deterioration of the wound fibular osteomyelitis and potential communication of the open wound to tendon structures and ankle joint. This likely will require further treatment which has has yet to be determined. Local anesthetic was injected into the portal sites at the conclusion of surgery I attest to the content of the Intraoperative Record and any orders documented t herein. Any exceptions are noted below.
[2022-07-04] MEDS ORDERED: bisacodyL 10 MG SUPP PR PRN (12:01)
--- NOTE | 2022-07-04 12:24 | Anesthesiology Progress Note ---
Date of Service July 04, 2022 Anesthesia Post Procedure Vital Signs Vital Signs: Temp Pulse Pulse Pulse Resp BP BP 07/04/22 12:10 36.5 C 76 16 136/76 07/04/22 11:40 36.5 C 77 15 100/58 L 07/04/22 11:30 79 19 100/53 L 07/04/22 11:20 81 19 98/62 L 07/04/22 11:10 84 13 106/60 07/04/22 11:00 89 20 104/55 L 07/04/22 10:54 36.0 C L 89 12 114/63 07/04/22 06:01 82 07/04/22 07:27 36.9 C 90 18 130/73 07/03/22 22:02 82 07/04/22 03:08 36.7 C 84 18 119/70 07/03/22 20:14 07/03/22 23:37 36.8 C 80 20 116/73 07/03/22 21:05 101 H 07/03/22 19:10 36.7 C 108 H 20 07/03/22 19:09 105 H 07/03/22 18:42 36.6 C 107 H 20 07/03/22 16:00 113 H 22 07/03/22 16:00 114/63 07/03/22 15:26 127/72 07/03/22 15:26 117 H 17 07/03/22 15:00 114 H 07/03/22 14:05 117 H 07/03/22 15:00 113 H 18 07/03/22 13:00 98/60 L BP Pulse Ox O2 Del Method O2 Flow Rate 07/04/22 12:10 92 Room Air 07/04/22 11:40 96 Room Air 07/04/22 11:30 93 Room Air 07/04/22 11:20 95 Room Air 07/04/22 11:10 95 Room Air 07/04/22 11:00 96 Oxymask 7 07/04/22 10:54 99 Oxymask 7 07/04/22 06:01 07/04/22 07:27 94 Room Air 07/03/22 22:02 07/04/22 03:08 93 Room Air 07/03/22 20:14 Room Air 07/03/22 23:37 93 Room Air 07/03/22 21:05 111/69 07/03/22 19:10 117/73 96 Room Air 07/03/22 19:09 07/03/22 18:42 127/76 94 Room Air 07/03/22 16:00 93 07/03/22 16:00 07/03/22 15:26 07/03/22 15:26 95 07/03/22 15:00 07/03/22 14:05 07/03/22 15:00 98/60 L 96 Room Air 07/03/22 13:00 Pain Intensity Left Leg: Pain Intensity: 8 Left Knee: Pain Intensity: 3 Transfer of Care Handoff Completed per policy Notes Mental Status: alert / awake / arousable Patient Amnestic to Procedure: Yes Nausea / Vomiting: adequately controlled Pain: adequately controlled Airway Patency, RR, SpO2: stable & adequate BP & HR: stable & adequate Hydration State: stable & adequate Anesthetic Complications: no major complications apparent
[2022-07-04] MEDS: ONDANSETRON INJ 2 MG/ML 2 ML VIAL IV PRN (12:38)
[2022-07-04] MEDS: METOPROLOL TARTRATE 25 MG TAB PO SCH ×2 (13:41→21:03)
[2022-07-04] MEDS: SPIRONOLACTONE 25 MG TAB PO SCH (13:41)
[2022-07-04] MEDS: FUROSEMIDE 20 MG TAB PO SCH (13:41)
[2022-07-04] MEDS: POLYETHYLENE (MIRALAX) 17 GM PACK PO SCH (13:43)
[2022-07-04] MEDS: SACCHAROMYCES BOULARDII 250 MG CAP PO SCH (13:43)
[2022-07-04] MEDS: MULTIVITAMIN TAB PO SCH (13:43)
--- NOTE | 2022-07-04 14:03 | Hospitalist Progress Note ---
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 Left Knee Septic Arthritis Bacteremia -History of MSSA Aortic valve endocarditis, previously on daptomycin then finished 6 week course with cefazolin. History of MRSA growth on sacral wound and left ankle ulcer -continue ceftriaxone and vancomycin -ID consulted -OR today for washout, now with drain -will order TTE -repeat blood cultures again tomorrow Stage 4 Sacral Ulcer Stage 4 Left ankle ulcer -Follows at wound clinic -WOCN consult while here -Recent concern by Wound clinic provider for osteomyelitis of her left ankle with plan for outpatient MRI. MRI left ankle w/without contrast obtained yesterday concerning for abscess and early osteomyelitis. Left ankle joint aspirated today by ortho Chronic diastolic CHF Aortic Stenosis Histor of Aortic Valve MSSA endocarditis -Difficult to assess fluid status on exam. CXR negative for pulmonary edema. BNP mildly elevated (better than her baseline) -continue lasix 20mg PO daily, Metoprolol 25mg BID, spironolactone 50mg daily with hold parameters IDDM -HA1c 10.5% -Lantus 20 units daily--continue, Metformin 500mg BID--will hold -correctional scale insulin DVT ppx start SC Lovenox when cleared by ortho Admission and Anticipated Discharge Date Admission Date: July 03, 2022 Subjective Went to OR today for left knee washout After OR patient back to room and had some nausea/vomiting, resolved now BP also low after coming back from OR no light headedness/dizziness, improving with IV fluids Remains afebrile Patient upset about the possibility of needing intermodal dispatcher IV antibiotics and refusing to go to SNF for this but would be agreeable for home infusion or even [facility] Physical Exam Physical Exam: Appears older than stated age, no acute distress, non toxic ENMT: Poor dentition Respiratory: Breathing comfortably on room air, no wheezing/rhonchi/rales Cardiovascular: +systolic murmur consistent with known , no rubs/gallops, rate is rhythm Gastrointestinal (Abdomen): soft, non tender Musculoskeletal: left knee in immobilizer, left ankle is dressed Results & Data Results & Data ([facility]) Vital Signs (Past 12 Hours) Vital Signs Temp Pulse Pulse Pulse Resp BP Pulse Ox 07/04/22 13:23 78 16 94/57 L 91 07/04/22 13:11 81 16 86/55 L 95 07/04/22 12:13 78 16 104/66 95 07/04/22 12:10 36.5 C 76 16 136/76 92 07/04/22 11:40 36.5 C 77 15 100/58 L 96 07/04/22 11:30 79 19 100/53 L 93 07/04/22 11:20 81 19 98/62 L 95 07/04/22 11:10 84 13 106/60 95 07/04/22 11:00 89 20 104/55 L 96 07/04/22 10:54 36.0 C L 89 12 114/63 99 07/04/22 06:01 82 07/04/22 07:27 36.9 C 90 18 130/73 94 07/04/22 03:08 36.7 C 84 18 119/70 93 O2 Del Method O2 Flow Rate 07/04/22 13:23 Room Air 07/04/22 13:11 Room Air 07/04/22 12:13 Room Air 07/04/22 12:10 Room Air 07/04/22 11:40 Room Air 07/04/22 11:30 Room Air 07/04/22 11:20 Room Air 07/04/22 11:10 Room Air 07/04/22 11:00 Oxymask 7 07/04/22 10:54 Oxymask 7 07/04/22 06:01 07/04/22 07:27 Room Air 07/04/22 03:08 Room Air
[2022-07-04] MEDS: cefTRIAXone SODIUM 2,000 MG in DEXTROSE 5% 50 ML IV SCH (16:21)
[2022-07-04] MEDS: VANCOMYCIN HCL 1,250 MG in SODIUM CHLORIDE 0.9% 250 ML IV SCH (17:21)
[2022-07-04] MEDS: LANTUS PER UNIT CHARGE SQ SCH (20:39)
[2022-07-04] MEDS: MELATONIN 3 MG TAB PO SCH (21:04)
[2022-07-04] MEDS: SENNA 8.6 MG TAB PO SCH (21:04)
[2022-07-04] MEDS: traMADol HCL 50 MG TABLET PO PRN (22:04)
[2022-07-05] MEDS: traMADol HCL 50 MG TABLET PO PRN ×4 (02:04→21:18)
[2022-07-05] MEDS ORDERED: VANCOMYCIN LEVEL ONE (05:00)
[2022-07-05] MEDS: VANCOMYCIN HCL 1,250 MG in SODIUM CHLORIDE 0.9% 250 ML IV SCH (05:11)
[2022-07-05 07:29] LABS: Estimated Average Glucose 148 mg/dl; Hemoglobin A1C 6.8 % (4.5-5.6)
[2022-07-05 08:18] LABS: Basophils # (auto) 0.06 K/uL (0-0.2); Basophils % (auto) 0.6 %; Eosinophils # (auto) 0.22 K/uL (0-0.50); Eosinophils % (auto) 2.3 %; Hematocrit (blood only) 26.4 % (37.0-47.0); Hemoglobin 9.1 g/dl (12.0-16.0); Immature Granulocytes # (auto) 0.03 K/uL (0.01-0.20); Immature Granulocytes % (auto) 0.3 %; Lymphocytes # (auto) 2.32 K/uL (1.2-3.4); Lymphocytes % (auto) 23.8 %; Mean Corpuscular Hemoglobin 30.8 pg (25.0-34.0); Mean Corpuscular Hgb Conc 34.5 g/dL (32.0-36.0); Mean Corpuscular Volume 89.5 fL (80.0-100.0); Mean Platelet Volume 9.3 fL (9.4-12.4); Monocytes # (auto) 0.63 K/uL (0.11-0.59); Monocytes % (auto) 6.5 %; Neutrophils # (auto) 6.47 K/uL (1.40-6.50); Neutrophils % (auto) 66.5 %; Platelet Count 367 K/uL (130-400); RDW Coefficient of Variation 13.7 % (11.5-14.5); RDW Standard Deviation 44.3 fL (36.4-46.3); Red Blood Count 2.95 M/uL (4.20-5.40); White Blood Count 9.73 K/ul (4.8-10.8)
[2022-07-05] MEDS: INSULIN ASPART PER UNIT SC SCH ×4 (08:42→21:14)
[2022-07-05] MEDS: FUROSEMIDE 20 MG TAB PO SCH (08:43)
[2022-07-05] MEDS: SPIRONOLACTONE 25 MG TAB PO SCH (08:43)
[2022-07-05] MEDS: METOPROLOL TARTRATE 25 MG TAB PO SCH ×2 (08:43→21:18)
[2022-07-05] MEDS: MULTIVITAMIN TAB PO SCH (08:44)
[2022-07-05] MEDS: SACCHAROMYCES BOULARDII 250 MG CAP PO SCH (08:44)
[2022-07-05] MEDS: ACETAMINOPHEN 325 MG TAB PO PRN ×3 (08:45→19:34)
[2022-07-05] MEDS: POLYETHYLENE (MIRALAX) 17 GM PACK PO SCH (08:52)
[2022-07-05] MEDS: DOCUSATE SODIUM 100 MG CAP PO SCH ×2 (08:52→21:19)
[2022-07-05 09:51] LABS: BUN Creatinine Ratio 29.2 (10-20); Calcium 8.8 mg/dl (8.5-10.1); Creatinine Clr Calc Pharmacy 102.2 ml/min; Est GFR (African American) 110.3 ml/min; Est GFR (Non-African American) 95.2 ml/min; Potassium 3.9 mmol/L (3.5-5.1)
--- NOTE | 2022-07-05 10:30 | Progress Notes ---
DATE OF SERVICE: 07/05/2022. SUBJECTIVE: Phyllis is in PCU. Resting comfortably in bed. Her pain is well controlled. She is afebrile. Her vital signs are stable. Her drain output since surgery was 32 mL. The drain is pulled. Left knee dressing left intact. Her white count is 9, hemoglobin 9, hematocrit 26, platelets are 367. PRP is noted. The synovial fluid from her left ankle joint showed 9780 white blood cells, 89% polys, and a half million red cells. Blood cultures from 07/03/2022 are growing staph. Left knee from 07/03/2022 growing MRSA. Left ankle from 07/04/2022 and also left knee from 07/04/2022, both growing staph. OBJECTIVE: Examination of her left knee reveals the dressing is clean, dry and intact. Drain is pulled. Examination of the left ankle reveals no significant tenderness. She has good ankle range of motion without significant discomfort. There is not any tenderness to palpation. She has a lateral ankle wound, which is draining a copious amount of serous drainage. The ankle is mildly swollen. She has 5/5 ankle and toe plantar flexion, dorsiflexion, inversion and eversion strength. She can wiggle her toes. Capillary refill less than 2 seconds, but pedal pulses are not palpable. IMPRESSION: 1. Septic arthritis of the left knee with methicillin-resistant Staphylococcus aureus. 2. Septic arthritis of the left ankle, likely with methicillin-resistant Staphylococcus aureus, chronic left ankle wound. PLAN: Findings are discussed. Hold blood thinner. Continue vancomycin. We will need to continue to monitor her left knee. Further surgery is a possibility. She will need likely long-term IV antibiotics. Probably would benefit from infectious disease consultation if agreed upon by the hospitalist service. In regards to her left ankle, she does have a positive culture there and I recommend that we do a washout of the left ankle. This would be an anteromedial ankle arthrotomy with washout. I may also debride her left ankle wound. I may see if there is a communication between the 2 by injecting some methylene blue. I discussed with her the situation of her ankle. At this point, the solution is not completely defined. I think the ankle needs a washout. She will need antibiotics to treat. In terms of the wound and the possible underlying fibular osteomyelitis, treatment is not clear. She does not have any good soft tissue options to cover this if debrided. If the ankle wound is now communicating with the ankle joint in some fashion, that could be a much larger problem. We will know further once we do some work tomorrow. Informed consent was obtained. She is n.p.o. after midnight. Continue IV antibiotics. Job ID: [id number] MTDD
--- NOTE | 2022-07-05 13:55 | Pharmacy Report ---
Pharmacy PK ABX Note - Date of Service July 05, 2022 - Assessment and Plan Assessment 62 year old F receiving vancomycin and ceftriaxone for treatment of bacteremia and septic arthritis of knee and ankle. 2/4 blood cultures (+) MRSA in 3/4. Left knee culture (+) MRSA and L ankle culture (+) Staph spp. Renal function stable. Day # 3 of antimicrobial therapy. Plan Vancomycin * Random vancomycin level this afternoon (~7hr level) 18.9mcg/mL. Predicted to achieve steady state AUC 459mg/L.hr * Will optimize dosing to target AUC closer to 600mg/L.hr given source and bacteremia * Change from 1250mg IV q12h to 1500mg IV q12h. New regimen predicted to achieve steady state AUC 549mg/dL.hr and trough 17.3mcg/mL. * Repeat level 2/8 AM Pharmacy will continue to follow and will adjust dose/frequency as necessary. Thank you. Pharmacy has transitioned to AUC monitoring for vancomycin. AUC/SAMMI is the preferred PK/PD target and is associated with decreased risk of nephrotoxicity compared to traditional trough targets.
--- NOTE | 2022-07-05 14:38 | Hospitalist Progress Note ---
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 Left Knee Septic Arthritis Bacteremia -History of MSSA Aortic valve endocarditis, previously on daptomycin then finished 6 week course with cefazolin. History of MRSA growth on sacral wound and left ankle ulcer -continue ceftriaxone and vancomycin -ID consulted -OR 07/04 for washout, now with drain -TTE results noted, aortic valve not well visualized. Will await ID input regarding whether repeat JILLIAN is needed -repeat blood cultures today Stage 4 Sacral Ulcer Stage 4 Left ankle ulcer -Follows at wound clinic -WOCN consult while here -Recent concern by Wound clinic provider for osteomyelitis of her left ankle with plan for outpatient MRI. MRI left ankle w/without contrast obtained yesterday concerning for abscess and early osteomyelitis. Left ankle joint aspirated today by ortho Chronic diastolic CHF Aortic Stenosis Histor of Aortic Valve MSSA endocarditis -Difficult to assess fluid status on exam. CXR negative for pulmonary edema. BNP mildly elevated (better than her baseline) -continue lasix 20mg PO daily, Metoprolol 25mg BID, spironolactone 50mg daily with hold parameters IDDM -HA1c 10.5% -Lantus 20 units daily--continue, Metformin 500mg BID--will hold -correctional scale insulin DVT ppx start SC Lovenox when cleared by ortho Admission and Anticipated Discharge Date Admission Date: July 03, 2022 Subjective Remains afebrile. No new complaints Physical Exam Physical Exam: Pleasant, no acute distress ENMT: Poor dentition Respiratory: Breathing comfortably on room air, no wheezing/rhonchi Cardiovascular: regular rate and rhythm, +systolic murmur consistent with known Gastrointestinal (Abdomen): soft, non tender, non distended Musculoskeletal: no edema Skin: left ankle dress--dressing clean/dry/intact, left knee also in dressing, left buttock picture uploaded by WOSHEREEN reviewed Neurologic: awake, alert, spontaneously moving extremities Results & Data Results & Data ([facility]) Vital Signs (Past 12 Hours) Vital Signs Temp Pulse Pulse Resp BP Pulse Ox O2 Del Method 07/05/22 11:26 36.6 C 75 20 120/64 95 Room Air 07/05/22 07:58 36.7 C 86 20 116/69 93 Room Air 07/05/22 07:02 79 07/05/22 04:00 36.5 C 85 18 108/66 93 Room Air
[2022-07-05] MEDS: cefTRIAXone SODIUM 2,000 MG in DEXTROSE 5% 50 ML IV SCH (14:45)
[2022-07-05] MEDS: VANCOMYCIN HCL 1,500 MG in SODIUM CHLORIDE 0.9% 500 ML IV SCH (17:14)
[2022-07-05] MEDS: LANTUS PER UNIT CHARGE SQ SCH (21:14)
[2022-07-05] MEDS: SENNA 8.6 MG TAB PO SCH (21:18)
[2022-07-05] MEDS: MELATONIN 3 MG TAB PO SCH (21:19)
[2022-07-06] MEDS: VANCOMYCIN HCL 1,500 MG in SODIUM CHLORIDE 0.9% 500 ML IV SCH ×2 (06:31→18:13)
[2022-07-06 07:22] LABS: Basophils # (auto) 0.07 K/uL (0-0.2); Basophils % (auto) 0.7 %; Eosinophils # (auto) 0.24 K/uL (0-0.50); Eosinophils % (auto) 2.6 %; Hematocrit (blood only) 27.3 % (37.0-47.0); Hemoglobin 9.5 g/dl (12.0-16.0); Immature Granulocytes # (auto) 0.05 K/uL (0.01-0.20); Immature Granulocytes % (auto) 0.5 %; Lymphocytes # (auto) 2.27 K/uL (1.2-3.4); Lymphocytes % (auto) 24.3 %; Mean Corpuscular Hgb Conc 34.8 g/dL (32.0-36.0); Mean Corpuscular Volume 89.2 fL (80.0-100.0); Mean Platelet Volume 8.9 fL (9.4-12.4); Monocytes # (auto) 0.66 K/uL (0.11-0.59); Monocytes % (auto) 7.1 %; Neutrophils # (auto) 6.06 K/uL (1.40-6.50); Neutrophils % (auto) 64.8 %; Platelet Count 301 K/uL (130-400); RDW Coefficient of Variation 13.6 % (11.5-14.5); RDW Standard Deviation 44.2 fL (36.4-46.3); Red Blood Count 3.06 M/uL (4.20-5.40); White Blood Count 9.35 K/ul (4.8-10.8)
[2022-07-06 07:59] LABS: BUN Creatinine Ratio 25.9 (10-20); Calcium 8.8 mg/dl (8.5-10.1); Creatinine Clr Calc Pharmacy 123.7 ml/min; Est GFR (African American) 117.2 ml/min; Est GFR (Non-African American) 101.1 ml/min; Potassium 3.6 mmol/L (3.5-5.1)
[2022-07-06] MEDS ORDERED: LACTATED RINGER'S 1,000 ML IV SCH (08:30)
[2022-07-06] MEDS: INSULIN ASPART PER UNIT SC SCH ×4 (08:51→20:52)
[2022-07-06] MEDS: METOPROLOL TARTRATE 25 MG TAB PO SCH ×2 (08:57→20:56)
[2022-07-06] MEDS: SACCHAROMYCES BOULARDII 250 MG CAP PO SCH (09:01)
[2022-07-06] MEDS: MULTIVITAMIN TAB PO SCH (09:01)
[2022-07-06] MEDS: SPIRONOLACTONE 25 MG TAB PO SCH (09:04)
[2022-07-06] MEDS: traMADol HCL 50 MG TABLET PO PRN ×2 (09:04→19:26)
[2022-07-06] MEDS: FUROSEMIDE 20 MG TAB PO SCH (09:05)
[2022-07-06] MEDS: POLYETHYLENE (MIRALAX) 17 GM PACK PO SCH (09:29)
[2022-07-06] MEDS: DOCUSATE SODIUM 100 MG CAP PO SCH ×2 (09:29→20:56)
--- NOTE | 2022-07-06 14:12 | History & Physical Bridge Note ---
Date of Service July 06, 2022 History & Physical Bridge Note I have examined the patient, reviewed the History & Physical and in the interval since the performance of the History & Physical I have noted the following changes of clinical significance: no changes noted
[2022-07-06] MEDS ORDERED: DEXAMETHASONE SOD INJ 4 MG/ML VIAL ONE (14:27)
[2022-07-06] MEDS ORDERED: fentaNYL citrate 100 MCG/2 ML VIAL ONE ×2 (14:27→15:26)
[2022-07-06] MEDS ORDERED: ONDANSETRON INJ 2 MG/ML 2 ML VIAL ONE (14:27)
[2022-07-06] MEDS ORDERED: PROPOFOL IV EMULSION 10 MG/ML 20 ML VIAL IV ONE (14:27)
[2022-07-06] MEDS ORDERED: BUPIVACAINE 0.5 % 5 MG/1 ML MPF 30ML VIAL ONE (14:43)
[2022-07-06] MEDS ORDERED: LIDOCAINE 1% LOCAL 20 ML VIAL ONE (14:44)
[2022-07-06] MEDS ORDERED: METHYLENE BLUE 0.5% 10 ML VIAL ONE (14:44)
--- NOTE | 2022-07-06 14:50 | Anesthesiology Consultation ---
Date of Service July 06, 2022 Assessment & Plan Chart Review Chart Review: Acceptable Risk for Surgery and Patient NOT seen in Pre Admission Testing Consults Requested none ASA ASA4 Proposed Anesthesia Anesthesia Type: General Risk / Benefits Reviewed With: PT / POA / Parent / Guardian, Accepts Plan and Informed Consent Obtained History Surgery Operation Date: 07/04/22 08:00 Proposed Procedures p Arthroscopy Knee Meniscal Repair(Left) - Moises Brooks MD Operation Date: 07/06/22 13:40 Proposed Procedures p Left Ankle Arthrotomy Irrigation and Debridement - Moises Brooks MD Height/Weight Height: 5 ft 3 in Weight: 102.8 kg Allergies Allergy/AdvReac Type Severity Reaction Status Date / Time No Known Allergies Allergy Verified 07/03/22 01:35 Medications Home Medications Medication Instructions Recorded Confirmed Last Taken blood sugar diagnostic (OneTouch #50 ea 04/14/22 04/19/22 Unknown Ultra Test strips) blood-glucose meter (OneTouch #1 ea 04/14/22 04/19/22 Unknown Ultra2 Meter) lancets 33 gauge (OneTouch Delica #100 ea 04/14/22 04/19/22 Unknown Lancets) acetaminophen 325 mg capsule 325 mg PO Q6H PRN fever or pain 05/12/22 07/03/22 Unknown (Tylenol) #30 caps furosemide 20 mg tablet (Lasix) 20 mg PO DAILY #30 tabs 05/12/22 07/03/22 07/02/22 metoprolol tartrate 25 mg tablet 25 mg PO BID #60 tabs 05/12/22 07/03/22 07/02/22 polyethylene glycol 3350 17 17 g PO DAILY PRN constipation 05/12/22 07/03/22 Unknown gram/dose oral powder (Miralax) #119 grams potassium chloride 20 mEq 20 meq PO QAM #30 tabs 05/12/22 07/03/22 07/02/22 tablet,extended release(part/cryst) spironolactone 50 mg tablet 50 mg PO DAILY #30 tabs 05/12/22 07/03/22 07/02/22 insulin glargine 100 unit/mL (3 20 unit subcut PM 07/03/22 07/03/22 07/02/22 mL) subcutaneous pen loperamide 2 mg tablet 2 mg PO DIRECTED PRN Diarrhea 07/03/22 07/03/22 Unknown melatonin 5 mg tablet 5 mg PO HS 07/03/22 07/03/22 07/02/22 metformin 500 mg tablet,extended 500 mg PO BIDM 07/03/22 07/03/22 07/02/22 release 24 hr multivitamin 1 tab PO DAILY 07/03/22 07/03/22 07/02/22 nystatin 100,000 unit/gram topical 1 applic topical BID PRN Rash 07/03/22 07/03/22 Unknown powder Active Medications Generic Name Dose Route Start Last Admin Trade Name Freq PRN Reason Stop Dose Admin Acetaminophen 325 mg 07/03/22 15:29 07/05/22 19:34 Acetaminophen 325 Mg Tab PO 325 mg Q6H PRN Administration fever or pain Docusate Sodium 100 mg 07/05/22 09:00 07/06/22 09:29 Docusate Sodium 100 Mg Cap PO 08/04/22 08:59 Not Given BID ERAN Furosemide 20 mg 07/03/22 15:29 07/06/22 09:05 Furosemide 20 Mg Tab PO 08/02/22 15:28 20 mg DAILY ERAN Administration Vancomycin HCl 1,500 mg/ 530 mls @ 200 mls/hr 07/05/22 17:00 07/06/22 09:29 Sodium Chloride IV 08/16/22 16:59 Infused Q12H [facility] Infusion Protocol Lactated Ringer's 1,000 mls @ 80 mls/hr 07/06/22 08:30 07/06/22 09:03 Lr IV 08/05/22 08:29 80 mls/hr .[id number] ERAN Administration Insulin Aspart 0 units 07/03/22 16:30 07/06/22 12:13 Insulin Aspart Per Unit SC 08/02/22 16:29 Not Given ACHS ERAN Insulin Glargine 10 units 07/03/22 21:00 07/05/22 21:14 Lantus Per Unit Charge SQ 08/02/22 20:59 10 units PM ERAN Administration Melatonin 6 mg 07/03/22 22:00 07/05/22 21:19 Melatonin 3 Mg Tab PO 08/02/22 21:59 6 mg HSZ ERAN Administration Metoprolol Tartrate 25 mg 07/03/22 21:00 07/06/22 08:57 Metoprolol Tartrate 25 Mg Tab PO 08/02/22 20:59 25 mg BID ERAN Administration Multivitamins 1 tab 07/04/22 09:00 07/06/22 09:01 Multivitamin Tab PO 08/03/22 08:59 1 tab DAILY ERAN Administration Nystatin 1 appln 07/03/22 15:29 07/05/22 14:20 Nystatin Powder 15gm Btl EXT 08/02/22 15:28 1 appln BID PRN Administration Rash Ondansetron HCl 4 mg 07/04/22 12:34 07/04/22 12:38 Ondansetron Inj 2 Mg/Ml 2 Ml Vial IV 08/03/22 12:33 4 mg Q6H PRN Administration Nausea And Vomiting Polyethylene Glycol 17 gm 07/04/22 09:00 07/06/22 09:29 Polyethylene (Miralax) 17 Gm Pack PO 08/03/22 08:59 Not Given DAILY ERAN Saccharomyces Boulardii 250 mg 07/04/22 09:00 07/06/22 09:01 Saccharomyces Boulardii 250 Mg Cap PO 08/03/22 08:59 250 mg DAILY ERAN Administration Sennosides 17.2 mg 07/04/22 21:00 07/05/22 21:18 Senna 8.6 Mg Tab PO 08/03/22 20:59 17.2 mg HS ERAN Administration Spironolactone 50 mg 07/03/22 15:29 07/06/22 09:04 Spironolactone 25 Mg Tab PO 08/02/22 15:28 50 mg DAILY ERAN Administration Tramadol HCl 50 mg 07/03/22 16:08 07/06/22 09:04 Tramadol Hcl 50 Mg Tablet PO 08/02/22 16:07 50 mg Q4H PRN Administration Pain NPO Date Last Intake of Fluids: 07/05/22 Time Last Intake of Fluids: 22:00 Last Intake of Fluids Comment: Midnight Date Last Intake of Solids: 07/05/22 Time Last Intake of Solids: 22:00 Last Intake of Solids Comment: Midnight Past Medical History Medical History Acute metabolic encephalopathy Ambulatory dysfunction Aortic stenosis FRIDA 1.1cm2 04/04/22 Chronic diastolic CHF (congestive heart failure) Cirrhosis Dilated cardiomyopathy Generalized weakness Mitral regurgitation MSSA bacteremia Obesity Peripheral arterial disease Pressure ulcers of skin of multiple topographic sites Type 2 diabetes mellitus Urinary retention Wound of left buttock Exercise / Class Metabolic Activity III < 4 Walking/Shop/Light housework Past Family History Family History Other Family history non-contributory Past Surgical History Surgical History No significant past surgical history Past Anesthesia History No Hx of Anesthesia Complications and No Family Hx of Anesthesia Complications History of PONV No Hx of PONV and No Hx of Motion Sickness Social History Smoking Status: Never smoker Hx Alcohol Use: No Hx Substance Use: No substance use type: does not use Physical Exam Vital Signs Last Vital Signs Temp 36.7 C 07/06/22 14:20 Pulse 83 07/06/22 14:20 Resp 18 07/06/22 14:20 BP 117/67 07/06/22 14:20 Pulse Ox 95 07/06/22 14:20 O2 Del Method 07/06/22 14:20 O2 Flow Rate 7 07/04/22 11:00 Constitutional + morbidly obese; no acute distress ENMT Mouth: + dentition abnormality, + dental caries, + edentulous, + poor dentition and + loose teeth Thyromental Distance: < 3.5 Finger Breadths Mallampati Class: II Neck normal visual inspection and trachea midline; neck extension not limited Respiratory normal respiratory effort Auscultation: + diminished lung sounds Cardiovascular Rate/Rhythm: regular rate and regular rhythm Heart Sounds: + murmur (3/6 RUSB DARRIAN ) Vessels: no carotid bruit Musculoskeletal Spine: normal cervical ROM Extremities: full ROM of extremities Neurologic moves all extremities Motor/Sensory: + sensory deficit Psychiatric Orientation: alert and oriented x 3 Testing Laboratory Results 07/06/22 07:07 07/06/22 07:07 PT 11.7 Seconds (9.0-12.0) 07/04/22 07:06 INR 1.1 (0.9-1.1) 07/04/22 07:06 Hemoglobin A1c 6.8 % (4.5-5.6) H 07/04/22 07:06 07/05/22 11:15 Gram Stain - Final Hip,Left Decubitus Aerobic and Anaerobic Culture - Preliminary Staphylococcus species 07/03/22 14:13 Gram Stain - Final Knee,Left Aerobic and Anaerobic Culture - Preliminary Staph aureus MRSA 07/05/22 07:33 Aerobic Blood Culture - Preliminary Blood No growth in Aerobic bottle after 24 hours. Anaerobic Blood Culture - Preliminary No growth in Anaerobic bottle after 24 hours. 07/05/22 07:20 Aerobic Blood Culture - Preliminary Blood No growth in Aerobic bottle after 24 hours. Anaerobic Blood Culture - Preliminary No growth in Anaerobic bottle after 24 hours. 07/03/22 10:51 Aerobic Blood Culture - Preliminary Blood No growth in Aerobic bottle after 48 hours. Anaerobic Blood Culture - Preliminary Staph aureus MRSA 07/03/22 10:35 Aerobic Blood Culture - Final Blood Staph aureus MRSA Anaerobic Blood Culture - Final Staph aureus MRSA 07/04/22 Unknown Gram Stain - Final Knee,Left Aerobic and Anaerobic Culture - Preliminary Staph aureus MRSA 07/04/22 Unknown Gram Stain - Final Ankle,Left Aerobic and Anaerobic Culture - Preliminary Staph aureus MRSA 07/06/22 07/06/22 12:00 07:34 POC Glucose 125 H 141 H
[2022-07-06] MEDS ORDERED: ceFAZolin 330 MG/ML 1 GM VIAL ONE ×2 (15:19→15:28)
[2022-07-06] MEDS ORDERED: PHENYLEPHRINE HCL 10 MG/ML VIAL ONE (15:32)
[2022-07-06] MEDS ORDERED: NALOXONE HCL 0.4 MG/1 ML VIAL/CARP IV PRN ×2 (16:35→17:56)
[2022-07-06] MEDS ORDERED: ATROPINE SULFATE 0.1 MG/ML 10ML SYR IV PRN (16:35)
[2022-07-06] MEDS ORDERED: PROMETHAZINE HCL 12.5 MG in SODIUM CHLORIDE 0.9% 50 ML IV PRN (16:35)
[2022-07-06] MEDS ORDERED: ePHEDrine sulfate 50 MG/ML AMP IV PRN (16:35)
[2022-07-06] MEDS ORDERED: LABETALOL HCL IV 5 MG/ML 20ML IV PRN (16:35)
[2022-07-06] MEDS ORDERED: HYDROmorphone INJ 1 MG/ML SYRINGE IV PRN (16:35)
[2022-07-06] MEDS ORDERED: FLUMAZENIL 0.1 MG/1 ML 10 ML VIAL IV PRN (16:35)
[2022-07-06] MEDS ORDERED: ONDANSETRON INJ 2 MG/ML 2 ML VIAL IV PRN (16:35)
--- NOTE | 2022-07-06 16:40 | Operative Report ---
Post Operative Report Pre & Post Diagnosis Operation Date: 07/06/22 13:40 Pre-Op Diagnosis: Suspected bacterial infection left ankle, possible osteomyelitis of the left distal fibula, chronic left lateral ankle wound Post-Op Diagnosis: Same I identified the patient and participated in the time-out.: Yes Procedure \ Operation Date: 07/06/22 13:40 Actual Procedures p Left Ankle Arthrotomy, Irrigation and Debridement, Diagnostic Injection, Biopsy Left Distal Fibula (Left) - Mariel Somers DO Surgeon Moises Brooks MD Labor Delivery Rn Atul Somers Estimated Blood Loss 5 Findings Consistent with Post-Op Diagnosis Specimens Left ankle joint culture. Left distal fibula bone for specimen and left distal fibula bone for culture Drains Hemovac x1 Anesthesia Type General Regional Complications none Disposition Accompanied Patient To Recovery: No Disposition: Recovery Room Indications Phyllis is 62. She has had a chronic wound on her left ankle. This has been treated fairly successfully as an outpatient up until recently. This past weekend she was admitted to the hospital with septic arthritis of her left knee with MRSA. Increased drainage was noted in her left ankle. An MRI was obtained demonstrating fluid in the ankle. An aspiration of the ankle was positive for staph suspected to be MRSA. There was also abnormal signal within the distal fibula possibly consistent with early osteomyelitis. She is taken to the OR for dressing the after mentioned issues. Description of Procedure Informed consent obtained. Patient identified. She identified the operative site as the left ankle. I marked with my initials. Preoperative surgical timeout performed. Preop dose of IV antibiotics given. She was positioned supine on the OR table with a tourniquet on the left calf but not inflated. A bump was placed under the left hip. Her dressing was removed. Her knee incisions look benign there is no effusion within the knee and no erythema or drainage. The left lateral ankle wound looked actually better than it did a day or 2 ago. There is no active drainage to it and it had sealed up around the edges and was about 10 to 12 mm in size with a granulating base no erythema or substantial swelling around the ankle. Doing some milking around the anterior ankle joint area resulted in some serous fluid leaking out through the wound laterally. The leg was prescribed with Betadine and prepped with Betadine and draped in usual sterile fashion. DVT prophylaxis with SCDs intraoperatively and postoperatively. Fluoroscopic guidance was utilized. Using fluoroscopic guidance a 18-gauge spinal needle was introduced into the anteromedial ankle joint. No fluid could be aspirated. I then injected a diluted mixture of methylene blue into the ankle joint about 10 to 15 cc which went under pressure began to spray out of the lateral wound. A medial arthrotomy was made just medial to the tibialis anterior tendon. It was bluntly dissected down to the ankle joint capsule which was divided in line with the incision. The ankle joint was opened and then placing the ankle through range of motion as well as distracting it irrigated with 3+ liters of sterile saline. Some synovitis in the front of the ankle was debrided. The cartilage surfaces were stained blue but appeared to be intact. At the conclusion of the surgical procedure the skin was closed with 3-0 nylon after insertion of a 6 large Hemovac drain into the anterior ankle joint exiting proximal to the medial incision. Local anesthetic was injected into the skin of all the incisions. I changed my gloves. I localized the distal fibula and made a small incision about 15 mm superior to the tip of the fibula and in line with its widest part. I bluntly dissected down to the level of the bone and then and introduced a Jamshidi needle biopsy. I then advanced the trocar into the bone and confirmed this radiographically and then advance the harvesting cylinder into the bone but not completely through and obtained a 5 to 7 mm bone core. This looks like normal bone. Hemostasis with irrigation. This wound was irrigated and closed with a single 3-0 nylon suture. Repatcher fluoroscopic images were obtained. I then went ahead and debrided the lateral ankle wound which is mainly hypertrophic granulation tissue. The colored tract from the methylene blue could be traced to the distal anterior fibula. I did not think it was possible to excise this wound and achieve primary coverage. The lateral wound was packed with a saline moistened gauze sponge. Nonadherent dressing gauze and ABD soft wrap and a full-length Nikita wrap were then applied. Patient awakened from anesthesia difficulty and taken to the cart room in stable condition. There were no complications. Specimens were as mentioned above counts were correct and blood loss is estimated to be 5 cc. At the conclusion the operation spoke the patient's informed of my findings and postop instructions were given. She may partial weight-bear if she is able. She will continue the intravenous vancomycin. We will pursue some circulatory studies and coordinate care with foot and ankle specialist at [place] for potential limb salvage. I attest to the content of the Intraoperative Record and any orders documented therein. Any exceptions are noted below.
--- NOTE | 2022-07-06 16:45 | Operative Report ---
Post Operative Report Pre & Post Diagnosis Operation Date: 07/04/22 08:00 Pre-Op Diagnosis: Septic arthritis of left knee Post-Op Diagnosis: Septic arthritis of left knee Operation Date: 07/06/22 13:40 Pre-Op Diagnosis: LEFT KNEE SWELLING Post-Op Diagnosis: LEFT KNEE SWELLING I identified the patient and participated in the time-out.: Yes Procedure Operation Date: 07/04/22 08:00 Actual Procedures p Left Knee Arthroscopy Irrigation and Debridement(Left) - Moises Brooks MD s Left Ankle Aspiration(Left) - Moises Brooks MD Operation Date: 07/06/22 13:40 Actual Procedures p Left Ankle Arthrotomy, Irrigation and Debridement, Diagnostic Injection, Biop sy Left Distal Fibula (Left) - Mariel Somers DO Surgeon Cecilia Laborer Pole Crew Atul Somers Estimated Blood Loss 5 Findings Consistent with Post-Op Diagnosis Specimens See attending dictation Complications none Description of Procedure Patient was taken to the operating room where anesthesia was administered. Patient was prepped and draped in the usual sterile fashion. Please see attending's operative report for specifics of the procedure. I was present for the entire case from initial patient positioning through final wound closure. Assistance was provided in tissue retraction, hemostasis, and final wound closure. Patient was taken to the recovery room in satisfactory condition. I attest to the content of the Intraoperative Record and any orders documented therein. Any exceptions are noted below.
[2022-07-06] MEDS: fentaNYL citrate 100 MCG/2 ML VIAL IV PRN ×4 (16:56→17:11)
--- NOTE | 2022-07-06 17:09 | Fluoroscopy Report ---
FL ankle LT min 3V RTN CLINICAL HISTORY: Left ankle arthrotomy and I&D. COMPARISON STUDY: MRI of the left ankle July 03, 2022. FLUOROSCOPY TIME: 22 seconds. EXPOSURE DOSE: 1.09 mGy FLUOROSCOPIC IMAGES: 5 FINDINGS: Fluoroscopy was provided during left ankle arthrotomy, diagnostic injection and irrigation and debridement. IMPRESSION: Fluoroscopy provided during left ankle surgery, as above. ACT 112: Negative or not required by law. Electronically signed by: Cruz Berman M.D. 07/06/2022 5:08 PM
--- NOTE | 2022-07-06 17:26 | Anesthesiology Progress Note ---
Date of Service July 06, 2022 Anesthesia Post Procedure Vital Signs Vital Signs: Temp Pulse Pulse Pulse Resp BP BP 07/06/22 17:10 87 14 119/64 07/06/22 17:00 86 14 115/50 L 07/06/22 17:20 36.6 C 86 15 123/63 07/06/22 16:50 87 15 121/64 07/06/22 16:42 36.3 C L 84 14 L 14 111/96 07/06/22 14:23 63 07/06/22 14:20 36.7 C 83 18 117/67 07/06/22 12:04 36.9 C 78 19 115/45 L 07/06/22 07:32 87 07/06/22 07:22 36.9 C 88 18 126/71 07/06/22 04:55 36.6 C 89 20 130/70 07/06/22 00:37 79 07/05/22 23:59 36.8 C 81 18 120/75 07/05/22 19:31 36.8 C 93 H 20 124/74 Pulse Ox O2 Del Method O2 Flow Rate 07/06/22 17:10 93 Nasal Cannula 2 07/06/22 17:00 92 Room Air 07/06/22 17:20 94 Room Air 0 07/06/22 16:50 95 Nasal Cannula 2 07/06/22 16:42 94 Nasal Cannula 3 07/06/22 14:23 07/06/22 14:20 95 Room Air 07/06/22 12:04 95 Room Air 07/06/22 07:32 07/06/22 07:22 94 Room Air 07/06/22 04:55 95 Room Air 07/06/22 00:37 07/05/22 23:59 93 Room Air 07/05/22 19:31 91 Room Air Pain Intensity Left Leg: Pain Intensity: 8 Left Knee: Pain Intensity: 4 Transfer of Care Handoff Completed per policy Notes Mental Status: alert / awake / arousable Patient Amnestic to Procedure: Yes Nausea / Vomiting: adequately controlled Pain: adequately controlled Airway Patency, RR, SpO2: stable & adequate BP & HR: stable & adequate Hydration State: stable & adequate Anesthetic Complications: no major complications apparent
--- NOTE | 2022-07-06 18:18 | Hospitalist Progress Note ---
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 Left Knee MRSA Septic Arthritis MRSA Bacteremia -History of MSSA Aortic valve endocarditis, previously on daptomycin then finished 6 week course with cefazolin. History of MRSA growth on sacral wound and left ankle ulcer -was on ceftriaxone and vancomycin. Ceftriaxone discontinued today -ID consult pending -OR 07/04 left knee: washout, drain placed -OR 07/06 left ankle: washout and debridement, left distal fibula biopsy, drain placed -TTE results noted, aortic valve not well visualized. Will await ID input regarding whether repeat JILLIAN is needed (patient is already stating that she will refuse JILLIAN) -repeat blood cultures 07/05 no growth to date Stage 4 left buttock ulcer Stage 4 Left ankle ulcer -Follows at wound clinic -WOCN consult while here -Left buttock wound vac was changed 07/05. WOCN note reviewed, culture from this area was taken and so far +Staph, but per WOCN area does not appear to need surgical debridement. Chronic diastolic CHF Aortic Stenosis Histor of Aortic Valve MSSA endocarditis -Difficult to assess fluid status on exam. CXR negative for pulmonary edema. BNP mildly elevated (better than her baseline) -continue lasix 20mg PO daily, Metoprolol 25mg BID, spironolactone 50mg daily with hold parameters IDDM -HA1c 10.5% -Lantus 20 units daily--continue, Metformin 500mg BID--will hold -correctional scale insulin, lantus 10 units daily (lantus dose reduced due to intermittently being NPO for surgery, can up titrate her insulin once no further plans for surgery) DVT ppx start SC Lovenox when cleared by ortho Admission and Anticipated Discharge Date Admission Date: July 03, 2022 Subjective Patient went to OR today for left ankle washout/debridement ID consult delayed due to her being in OR Remains afebrile currently feeling well. Tolerating diet. Physical Exam Physical Exam: Appears older than stated age, no acute distress ENMT: Poor dentition Respiratory: Breathing comfortably on room air, no wheezing/rhonchi/rales Cardiovascular: +systolic murmur, no rubs/gallops Gastrointestinal (Abdomen): soft, non tender Skin: left leg and left ankle both in dressing and with drain in place Known stage 4 ulcer of left buttock (picture scanned in chart from 07/05 ) Neurologic: awake, alert, spontaneously moving extremities Results & Data Results & Data ([facility]) Vital Signs (Past 12 Hours) Vital Signs Temp Pulse Pulse Pulse Resp BP Pulse Ox 07/06/22 17:10 87 14 119/64 93 07/06/22 17:00 86 14 115/50 L 92 07/06/22 17:20 36.6 C 86 15 123/63 94 07/06/22 16:50 87 15 121/64 95 07/06/22 16:42 36.3 C L 84 14 L 14 111/96 94 07/06/22 14:23 63 07/06/22 14:20 36.7 C 83 18 117/67 95 07/06/22 12:04 36.9 C 78 19 115/45 L 95 07/06/22 07:32 87 07/06/22 07:22 36.9 C 88 18 126/71 94 O2 Del Method O2 Flow Rate 07/06/22 17:10 Nasal Cannula 2 07/06/22 17:00 Room Air 07/06/22 17:20 Room Air 0 07/06/22 16:50 Nasal Cannula 2 07/06/22 16:42 Nasal Cannula 3 07/06/22 14:23 07/06/22 14:20 Room Air 07/06/22 12:04 Room Air 07/06/22 07:32 07/06/22 07:22 Room Air
[2022-07-06] MEDS: LANTUS PER UNIT CHARGE SQ SCH (20:53)
[2022-07-06] MEDS: MELATONIN 3 MG TAB PO SCH (20:55)
[2022-07-06] MEDS: SENNA 8.6 MG TAB PO SCH (20:56)
[2022-07-07] MEDS: traMADol HCL 50 MG TABLET PO PRN ×4 (03:35→20:48)
[2022-07-07] MEDS ORDERED: VANCOMYCIN LEVEL ONE (04:00)
[2022-07-07 06:27] LABS: Basophils # (auto) 0.02 K/uL (0-0.2); Basophils % (auto) 0.2 %; Eosinophils # (auto) 0.01 K/uL (0-0.50); Eosinophils % (auto) 0.1 %; Hematocrit (blood only) 26.1 % (37.0-47.0); Hemoglobin 8.9 g/dl (12.0-16.0); Immature Granulocytes # (auto) 0.07 K/uL (0.01-0.20); Immature Granulocytes % (auto) 0.8 %; Lymphocytes # (auto) 1.92 K/uL (1.2-3.4); Lymphocytes % (auto) 20.7 %; Mean Corpuscular Hemoglobin 30.6 pg (25.0-34.0); Mean Corpuscular Hgb Conc 34.1 g/dL (32.0-36.0); Mean Corpuscular Volume 89.7 fL (80.0-100.0); Monocytes # (auto) 0.57 K/uL (0.11-0.59); Monocytes % (auto) 6.1 %; Neutrophils # (auto) 6.69 K/uL (1.40-6.50); Neutrophils % (auto) 72.1 %; Platelet Count 338 K/uL (130-400); RDW Coefficient of Variation 13.3 % (11.5-14.5); RDW Standard Deviation 43.6 fL (36.4-46.3); Red Blood Count 2.91 M/uL (4.20-5.40); White Blood Count 9.28 K/ul (4.8-10.8)
[2022-07-07 06:43] LABS: BUN Creatinine Ratio 24.2 (10-20); Calcium 8.7 mg/dl (8.5-10.1); Creatinine Clr Calc Pharmacy 101.2 ml/min; Est GFR (African American) 109.7 ml/min; Est GFR (Non-African American) 94.7 ml/min; Potassium 3.6 mmol/L (3.5-5.1)
[2022-07-07] MEDS: VANCOMYCIN HCL 1,500 MG in SODIUM CHLORIDE 0.9% 500 ML IV SCH ×2 (06:48→17:45)
[2022-07-07] MEDS: ENOXAPARIN INJ 30 MG/0.3 ML SYR SQ SCH ×2 (08:30→20:48)
[2022-07-07] MEDS: DOCUSATE SODIUM 100 MG CAP PO SCH ×2 (08:35→20:47)
[2022-07-07] MEDS: SACCHAROMYCES BOULARDII 250 MG CAP PO SCH (08:35)
[2022-07-07] MEDS: MULTIVITAMIN TAB PO SCH (08:35)
[2022-07-07] MEDS: FUROSEMIDE 20 MG TAB PO SCH (08:36)
[2022-07-07] MEDS: METOPROLOL TARTRATE 25 MG TAB PO SCH ×2 (08:37→20:48)
[2022-07-07] MEDS: INSULIN ASPART PER UNIT SC SCH ×4 (09:02→20:36)
--- NOTE | 2022-07-07 09:41 | Orthopedic Progress Note ---
Date of Service July 07, 2022 Assessment & Plan (1) Septic arthritis of knee, left: Plan: I discussed my findings with Phyllis. I think she will need PICC line and long- term IV antibiotics. She is very reluctant to go back to a retirement facility. I discussed with her that is possible but not guaranteed that she may be able to do her care at home. I discussed with her the findings relative to the surgery. Results of the fibula bone biopsy are pending. Her left lateral ankle wound communicates with her ankle joint. There has likely been a chronic infection of indeterminate time involving the left ankle joint. This has implications for the health of the joint as well as the development of osteomyelitis and chronic infection. There is not a good way to address the ankle wound in terms of primary debridement and closure or transfer of any type of tissue. I have asked Dr. Fields to provide some further assessment and treatment of her circulation as necessary. I will be in consultation with one of my colleagues at [facility] regarding options for treatment of her limb. We will make further decisions as culture data and other information becomes available. I have started her on Lovenox today. Continue IV antibiotics. ID consultation. She may be out of bed to chair. She can weight-bear as tolerated on her left leg. Present on Admission?: Yes (2) Wound of left ankle: (3) Septic arthritis of left ankle: Admission and Anticipated Discharge Date Admission Date: July 03, 2022 Subjective No problems noted. Pain well controlled. Able to move her left leg better. Less knee pain. Physical Exam Physical Exam: Trace DP pulse on the right but no palpable DP pulse on the left. She can wiggle her toes has capillary refill less than 2 seconds the foot is warm she can flex and extend the ankle as well. Her dressing is clean and dry. The Hemovac is pulled. Drainage evaluated. She is afebrile. Her labs are noted. Results & Data ([facility]) Vital Signs (Past 12 Hours) Vital Signs Temp Pulse Pulse Pulse Resp BP Pulse Ox 07/07/22 08:01 36.4 C L 75 20 131/73 95 07/07/22 02:24 36.6 C 71 20 118/70 95 07/06/22 23:53 83 07/06/22 22:21 36.8 C 84 20 121/76 94 O2 Del Method 07/07/22 08:01 Room Air 07/07/22 02:24 Room Air 07/06/22 23:53 07/06/22 22:21 Room Air Laboratory Results Laboratory Results WBC 9.28 K/ul (4.8-10.8) 07/07/22 05:53 RBC 2.91 M/uL (4.20-5.40) L 07/07/22 05:53 Hgb 8.9 g/dl (12.0-16.0) L 07/07/22 05:53 Hct 26.1 % (37.0-47.0) L 07/07/22 05:53 MCV 89.7 fL (80.0-100.0) 07/07/22 05:53 MCH 30.6 pg (25.0-34.0) 07/07/22 05:53 MCHC 34.1 g/dL (32.0-36.0) 07/07/22 05:53 RDW Std Deviation 43.6 fL (36.4-46.3) 07/07/22 05:53 RDW Coeff of Chintan 13.3 % (11.5-14.5) 07/07/22 05:53 Plt Count 338 K/uL (130-400) 07/07/22 05:53 MPV 9.0 fL (9.4-12.4) L 07/07/22 05:53 Immature Gran % (Auto) 0.8 % 07/07/22 05:53 Neut % (Auto) 72.1 % 07/07/22 05:53 Lymph % (Auto) 20.7 % 07/07/22 05:53 [place] % (Auto) 6.1 % 07/07/22 05:53 Eos % (Auto) 0.1 % 07/07/22 05:53 Baso % (Auto) 0.2 % 07/07/22 05:53 Neut # (Auto) 6.69 K/uL (1.40-6.50) H 07/07/22 05:53 Lymph # (Auto) 1.92 K/uL (1.2-3.4) 07/07/22 05:53 [place] # (Auto) 0.57 K/uL (0.11-0.59) 07/07/22 05:53 Eos # (Auto) 0.01 K/uL (0-0.50) 07/07/22 05:53 Baso # (Auto) 0.02 K/uL (0-0.2) 07/07/22 05:53 Immature Gran # (Auto) 0.07 K/uL (0.01-0.20) 07/07/22 05:53 ESR 101 mm/hr (0-30) H 07/03/22 02:18 PT 11.7 Seconds (9.0-12.0) 07/04/22 07:06 INR 1.1 (0.9-1.1) 07/04/22 07:06 Sodium 133 mmol/L (136-145) L 07/07/22 05:53 Potassium 3.6 mmol/L (3.5-5.1) 07/07/22 05:53 Chloride 102 mmol/L (98-107) 07/07/22 05:53 Carbon Dioxide 25 mmol/L (21-32) 07/07/22 05:53 Anion Gap 6 (3-11) 07/07/22 05:53 BUN 16 mg/dl (6-23) 07/07/22 05:53 Creatinine 0.66 mg/dl (0.6-1.2) 07/07/22 05:53 Est Cr Clr Drug Dosing 101.2 ml/min 07/07/22 05:53 Est GFR ( Amer) 109.7 ml/min 07/07/22 05:53 Est GFR (Non-Af Amer) 94.7 ml/min 07/07/22 05:53 BUN/Creatinine Ratio 24.2 (10-20) H 07/07/22 05:53 Glucose 212 mg/dl (70-99(Fasting)) H 07/07/22 05:53 POC Glucose 194 mg/dl (70-99) H 07/07/22 07:40 Estimat Average Glucose 148 mg/dl 07/04/22 07:06 Hemoglobin A1c 6.8 % (4.5-5.6) H 07/04/22 07:06 Uric Acid 10.7 mg/dl (2.6-7.2) H 07/03/22 02:18 Calcium 8.7 mg/dl (8.5-10.1) 07/07/22 05:53 Total Bilirubin 0.6 mg/dl (0.2-1.0) 07/03/22 02:18 AST 24 U/L (13-39) 07/03/22 02:18 ALT 24 U/L (7-52) 07/03/22 02:18 Alkaline Phosphatase 275 U/L (34-104) H 07/03/22 02:18 C-Reactive Protein 23.18 mg/dl (0-0.5) H 07/03/22 02:18 B-Natriuretic Peptide 176 pg/ml (0-100) H 07/04/22 07:06 Total Protein 8.5 gm/dl (6.0-8.3) H 07/03/22 02:18 Albumin 3.0 gm/dl (3.4-5.0) L 07/03/22 02:18 Globulin 5.5 gm/dl (2.5-4.0) H 07/03/22 02:18 Albumin/Globulin Ratio 0.5 (0.9-2) L 07/03/22 02:18 Fluid Comment 07/04/22 Unknown Synovial Source Other 07/04/22 Unknown Synovial Color Red 07/04/22 Unknown Synovial Appearance Bloody 07/04/22 Unknown Synovial WBC (Auto) 9780 /ul (0-200) H 07/04/22 Unknown Synovial RBC (Auto) 909410 /uL 07/04/22 Unknown Synovial Polynuclear % 88.9 % 07/04/22 Unknown Synovial Mononuclear % 11.1 % 07/04/22 Unknown Synovial Crystals 07/03/22 14:13 Random Vancomycin 15.5 mcg/ml (10-20) 07/07/22 05:53 SARS-CoV-2, RNA, NAAT NEGATIVE (NEGATIVE) 07/03/22 09:50 Staphylococcus sp PCR DETECTED (NotDetected) A 07/03/22 10:51 Staph aureus (PCR) DETECTED (NotDetected) A 07/03/22 10:51 mecA/C & MREJ Resist Gene MRSA DETECTED (NotDetected) A* 07/03/22 10:51 Bld Cult ID Panel PCR See PCR Comment (NotDetected) 07/03/22 10:51 Impressions Knee X-Ray 07/03/22 01:54 XR knee LT 1 or 2V routine HISTORY: 62 years-old Female knee pain acute left knee pain COMPARISON: CT left knee of same day TECHNIQUE: 3 views of the left knee FINDINGS: Moderate medial with moderate to severe patellofemoral and severe medial compartment osteoarthritis no acute fracture, dislocation or osseous erosion. Demineralized appearance of the bones. [id number] joint effusion with Coutler's cyst. Arterial calcifications. IMPRESSION: 1. No acute fracture or dislocation. 2. Tricompartmental osteoarthritis, severe within the medial compartment. 3. Small to moderate joint effusion. ACT 112: Negative or not required by law. The above report was generated using voice recognition software. It may contain grammatical, syntax or spelling errors. Electronically signed by: Michael Rodriguez M.D. 07/03/2022 7:[address] 07/03/22 03:44 CT knee LT wo con HISTORY: 62 years-old Female incr pain/swelling acute pain and swelling of the left knee COMPARISON: CT left tibia and fibula radiographs 04/04/2022 TECHNIQUE: Multiple axial CT images of the left knee were obtained without the use of IV contrast. A dose lowering technique was used consistent with the principals of ALARA. FINDINGS: Tricompartmental osteoarthritis, severe within the medial compartment, moderate to severe within the patellofemoral joint and moderate within the lateral compartment.. Small to moderate joint effusion. 3.2 x 3.9 x 5.3 cm Coulter's cyst. Extensive arterial calcifications. Mild to moderate muscular atrophy. No acute fracture, dislocation or osseous erosion identified. IMPRESSION: 1. No acute fracture or dislocation. 2. Tricompartmental osteoarthritis of the knee redemonstrated, severe within the medial compartment. 3. Small to moderate joint effusion with Coulter's cyst. ACT 112: Negative or not required by law. The above report was generated using voice recognition software. It may contain grammatical, syntax or spelling errors. Electronically signed by: Michael Rodriguez M.D. 07/03/2022 7:21 AM Chest X-Ray 07/03/22 16:13 XR chest 1V portable HISTORY: 62 years-old Female pre-op preoperative exam. COMPARISON: Chest radiograph 04/20/2022 TECHNIQUE: AP view of the chest FINDINGS: Cardiac silhouette is enlarged. Mild ill-defined subsegmental right basilar densities. No pneumothorax, pleural effusion or overt pulmonary edema. Degenerative changes of the shoulders and spine. IMPRESSION: 1. Cardiomegaly without overt pulmonary edema. 2. Mild right basilar densities favoring atelectasis. A mild nonspecific pneumonitis could appear similarly. ACT 112: Negative or not required by law. The above report was generated using voice recognition software. It may contain grammatical, syntax or spelling errors. Electronically signed by: Michael Rodriguez M.D. 07/03/2022 4:35 PM Ankle MRI 07/03/22 17:05 MR ankle LT wo/w con HISTORY: 62 years-old Female evaluate for osteo chronic soft tissue ulcer of the lateral left ankle COMPARISON: Left ankle radiographs 06/18/2022 TECHNIQUE: Multiplanar multisequence MRI of the left ankle was obtained both with and without the use of 10 cc Gadavist FINDINGS: Motion degraded exam. Moderate marrow edema of the talus, anterior to mid calcaneus and distal fibula with mild to moderate marrow edema of the medial malleolus.There is mild cortical indistinctness of the distal fibula. Small tibiotalar and subtalar joint effusions. Atrophy of the intrinsic musculature with intramuscular edema and mild enhancement. There is a cutaneous ulcer of the lateral ankle with skin thickening, subcutaneous and deep tissue edema and enhancement. Peripheral enhancement within the posterior joint recess measuring up to 9 mm on image 21 series 11 and 8 mm anterolateral to the talus on image 24 series 11. 9 mm enhancing focus is noted along the anterior margin of the peroneus brevis inframalleolar segment on image 30 series 11. Additional peripherally enhancing fluid in the flexor hallucis, image 23 series 11. There is mild tenosynovitis of the peroneus brevis and longus with areas of mild peripheral enhancement adjacent to the peroneus longus and image 17. The visualized flexor and extensor tendons appear intact. The lateral ligaments are suboptimally visualized. IMPRESSION: 1. Cutaneous ulcer of the lateral ankle with adjacent cellulitis changes. Subcentimeter peripherally enhancing fluid collections of the ankle as above are noted abutting the peroneal and flexor hallucis tendons and also lateral to the talus suspicious for small abscesses with associated infectious tenosynovitis. 2. Mild cortical indistinctness of the distal fibula with marrow edema is suspicious for early changes of osteomyelitis. 3. Small tibiotalar joint effusion. Correlate clinically to exclude infectious arthropathy. ACT 112: Negative or not required by law. The above report was generated using voice recognition software. It may contain grammatical, syntax or spelling errors. Electronically signed by: Michael Rodriguez M.D. 07/03/2022 6:00 PM Ankle X-Ray 07/06/22 13:40 FL ankle LT min 3V RTN CLINICAL HISTORY: Left ankle arthrotomy and I&D. COMPARISON STUDY: MRI of the left ankle July 03, 2022. FLUOROSCOPY TIME: 22 seconds. EXPOSURE DOSE: 1.09 mGy FLUOROSCOPIC IMAGES: 5 FINDINGS: Fluoroscopy was provided during left ankle arthrotomy, diagnostic injection and irrigation and debridement. IMPRESSION: Fluoroscopy provided during left ankle surgery, as above. ACT 112: Negative or not required by law. Electronically signed by: Cruz Berman M.D. 07/06/2022 5:08 PM
[2022-07-07] MEDS: SPIRONOLACTONE 25 MG TAB PO SCH (11:33)
[2022-07-07] MEDS: POLYETHYLENE (MIRALAX) 17 GM PACK PO SCH (11:33)
--- NOTE | 2022-07-07 13:07 | Pharmacy Report ---
Pharmacy PK ABX Note - Date of Service July 07, 2022 - Assessment and Plan Assessment 62 year old F receiving vancomycin and ceftriaxone for treatment of bacteremia and septic arthritis of knee and ankle. 2/4 blood cultures (+) MRSA in 3/4. Left knee culture (+) MRSA and L ankle culture, hip cultures (+) Staph spp. Renal function stable. ceftriaxone discontinued, continues on vancomycin. ID consult pending Plan 07/07 * Random vanco level this morning 15.5 mg/L, predicted to achieve steady state * Will continue current 1500 mg q12H dosing Vancomycin * Random vancomycin level this afternoon (~7hr level) 18.9mcg/mL. Predicted to achieve steady state AUC 459mg/L.hr * Will optimize dosing to target AUC closer to 600mg/L.hr given source and bacteremia * Change from 1250mg IV q12h to 1500mg IV q12h. New regimen predicted to achieve steady state AUC 549mg/dL.hr and trough 17.3mcg/mL. * Repeat level 2/8 AM Pharmacy will continue to follow and will adjust dose/frequency as necessary. Thank you. Pharmacy has transitioned to AUC monitoring for vancomycin. AUC/SAMMI is the preferred PK/PD target and is associated with decreased risk of nephrotoxicity compared to traditional trough targets.
--- NOTE | 2022-07-07 16:53 | Hospitalist Progress Note ---
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 Left Knee MRSA Septic Arthritis Stage 4 Left ankle ulcer Stage 4 left buttock ulcer MRSA Bacteremia -History of MSSA Aortic valve endocarditis, previously on daptomycin then finished 6 week course with cefazolin. History of MRSA growth on sacral wound and left ankle ulcer -was on ceftriaxone and vancomycin. Ceftriaxone discontinued -ID consult on board -OR 07/04 left knee: washout, drain placed -OR 07/06 left ankle: washout and debridement, left distal fibula biopsy, drain placed - Blood cx on 07/03, culture from the L knee and L ankle positive for MRSA - Left decubitus wound grew staph species -TTE results noted, aortic valve not well visualized. -Repeat blood cx on 07/05 negative so far -ID on board recommended 6 weeks of IV abx with Vanco -No need for JILLIAN if blood cx remained negative as per ID -If repeat blood cx remains negative, will place PICC prior discharge -Will need to check CBC, BMP and Vanco trough ( 15 - 20) weekly while on IV Vanco -Case discussed with Intervention cardiology for evaluation forleft lower extremity angiogram and possible endovascular intervention Chronic diastolic CHF Aortic Stenosis Histor of Aortic Valve MSSA endocarditis Difficult to assess fluid status on exam. CXR negative for pulmonary edema. BNP mildly elevated (better than her baseline) Continue lasix 20mg PO daily, Metoprolol 25mg BID, spironolactone 50mg daily with hold parameters IDDM -HA1c 10.5% -Lantus 20 units daily--continue, Metformin 500mg BID--will hold -correctional scale insulin, lantus 10 units daily (lantus dose reduced due to intermittently being NPO for surgery, can up titrate her insulin once no further plans for surgery) DVT ppx On Lovenox BID as per Ortho Admission and Anticipated Discharge Date Admission Date: July 03, 2022 Subjective Pt was seen and examined for follow up of bacteremia, L knee and L ankle wound infected Lying in bed with no acute distress with daughter at bedside Pt said that she feels ok She made it clear that she does not want to go to rehab She said that she would not get any JILLIAN and requested for a short duration course of antibiotic Denies any chest pain, palpitation, dizziness and SOB Review of Systems Review of Systems: All systems reviewed & are unremarkable except as noted in Subjective Physical Exam Physical Exam: General- No acute distress Head- atraumatic Eyes- PERRL, EOMI, ENT- oropharynx clear Neck- supple, no JVD Lungs- clear to auscultation Heart- regular rhythm; +systolic murmur Abdomen- normal bowel sounds, soft, nontender Extremities- no calf tenderness, Left knee and left ankle dressing Neuro- alert, oriented x 3; PERRL, EOMI; no facial palsy; no dysarthria Skin- warm & dry Results & Data Results & Data ([facility]) Vital Signs (Past 12 Hours) Vital Signs Temp Pulse Pulse Resp BP Pulse Ox O2 Del Method 07/07/22 15:38 36.8 C 93 H 20 129/72 94 Room Air 07/07/22 12:06 36.3 C L 69 18 122/69 95 Room Air 07/07/22 08:00 72 07/07/22 08:00 Room Air 07/07/22 08:01 36.4 C L 75 20 131/73 95 Room Air
[2022-07-07 18:31] LABS: Hematocrit (blood only) 27.1 % (37.0-47.0); Hemoglobin 9.4 g/dl (12.0-16.0); Mean Corpuscular Hemoglobin 30.8 pg (25.0-34.0); Mean Corpuscular Hgb Conc 34.7 g/dL (32.0-36.0); Mean Corpuscular Volume 88.9 fL (80.0-100.0); Mean Platelet Volume 9.1 fL (9.4-12.4); Platelet Count 390 K/uL (130-400); RDW Coefficient of Variation 13.5 % (11.5-14.5); Red Blood Count 3.05 M/uL (4.20-5.40); White Blood Count 10.72 K/ul (4.8-10.8)
[2022-07-07 18:54] LABS: BUN Creatinine Ratio 29.5 (10-20); Calcium 8.6 mg/dl (8.5-10.1); Creatinine Clr Calc Pharmacy 85.7 ml/min; Est GFR (African American) 94.4 ml/min; Est GFR (Non-African American) 81.5 ml/min; Potassium 3.5 mmol/L (3.5-5.1)
[2022-07-07] MEDS: LANTUS PER UNIT CHARGE SQ SCH (20:37)
[2022-07-07] MEDS: SENNA 8.6 MG TAB PO SCH (20:47)
[2022-07-07] MEDS: MELATONIN 3 MG TAB PO SCH (20:48)
--- NOTE | 2022-07-07 23:03 | Vascular Medicine Consultation ---
Date of Consultation July 07, 2022 Assessment & Plan (1) Septic arthritis of left ankle: Septic arthritis of left knee 2. Suspected left distal fibula osteomyelitis 3. MRSA bacteremia 4. Type 2 diabetes 5. Ambulatory dysfunction 6. Aortic stenosis 7. HFpEF 8. Anemia 9. Sacral decubitus ulcer with wound VAC 10. Suspected lower extremity PAD Reviewed patient's most recent arterial duplex. Appears to have widely patent vessels above the knee. Questionable disease in tibial vessels below the knee. Vascular exam limited today with postsurgical dressings but pedal pulses diminished and has sluggish capillary refill. Agree with pursuing additional vascular testing to assure adequate perfusion to heal current and potential future surgical wounds. Discussed risks, benefits of left lower extremity angiogram and possible endovascular intervention with patient and . They are willing to proceed. Patient tentatively on schedule for procedure Tuesday. Initial angiogram via left radial artery. Please keep n.p.o. past midnight on . Thank you for allowing us to participate in the care of this patient. Please contact with any questions. History of Present Illness Attending Physician: Marie Blake MD History of Present Illness Mrs. Mccollum is a very pleasant 62-year-old woman currently admitted with left ankle and knee septic arthritis, likely distal fibula osteomyelitis and MRSA bacteremia. Vascular medicine consulted for evaluation of possible lower extremity PAD potentially impacting wound healing/future surgeries. Patient has a history of type 2 diabetes, HFpEF, mild aortic stenosis, morbid obesity and ambulatory dysfunction. She has been dealing with a left ankle wound and sacral decubitus wound since at least February initially occurring after became largely bedbound post fall. Followed by wound care center, wound VAC in place over sacral decubitus ulcer. Patient has undergone left knee and ankle aspiration with Dr. Brooks on 07/04 and later left ankle arthrotomy and fibula biopsy on on 07/06. Has open wound to left ankle joint region there is she may eventually need additional orthopedic surgery at tertiary center. Patient has no history of vascular disease or prior intervention. Prior to February patient and states she was able to walk short distances without claudication. No rest pain. Arterial duplex 03/2022: Left lower extremity FAMILY SPECIALIST/SFA patent with triphasic waveforms. Patent popliteal/peroneal/MANUFACTURING TEST TECHNICIAN with monophasic waveforms. VALORIE patent with borderline proximal velocity elevation and triphasic waveforms. Allergies Allergy/AdvReac Type Severity Reaction Status Date / Time No Known Allergies Allergy Verified 07/03/22 01:35 Home Medications Medication Instructions Recorded Confirmed Type blood sugar diagnostic ([employer] #50 ea 04/14/22 04/19/22 Rx Ultra Test strips) blood-glucose meter ([employer] #1 ea 04/14/22 04/19/22 Rx Ultra2 Meter) lancets 33 gauge ([employer] Delica #100 ea 04/14/22 04/19/22 Rx Lancets) acetaminophen 325 mg capsule 325 mg PO Q6H PRN fever or pain 05/12/22 07/03/22 Rx (Tylenol) #30 caps furosemide 20 mg tablet (Lasix) 20 mg PO DAILY #30 tabs 05/12/22 07/03/22 Rx metoprolol tartrate 25 mg tablet 25 mg PO BID #60 tabs 05/12/22 07/03/22 Rx polyethylene glycol 3350 17 17 g PO DAILY PRN constipation 05/12/22 07/03/22 Rx gram/dose oral powder (Miralax) #119 grams potassium chloride 20 mEq 20 meq PO QAM #30 tabs 05/12/22 07/03/22 Rx tablet,extended release(part/cryst) spironolactone 50 mg tablet 50 mg PO DAILY #30 tabs 05/12/22 07/03/22 Rx insulin glargine 100 unit/mL (3 20 unit subcut PM 07/03/22 07/03/22 History mL) subcutaneous pen loperamide 2 mg tablet 2 mg PO DIRECTED PRN Diarrhea 07/03/22 07/03/22 History melatonin 5 mg tablet 5 mg PO HS 07/03/22 07/03/22 History metformin 500 mg tablet,extended 500 mg PO BIDM 07/03/22 07/03/22 History release 24 hr multivitamin 1 tab PO DAILY 07/03/22 07/03/22 History nystatin 100,000 unit/gram topical 1 applic topical BID PRN Rash 07/03/22 07/03/22 History powder Patient History Medical History Acute metabolic encephalopathy Ambulatory dysfunction Aortic stenosis FRIDA 1.1cm2 04/04/22 Chronic diastolic CHF (congestive heart failure) Cirrhosis Dilated cardiomyopathy Generalized weakness Mitral regurgitation MSSA bacteremia Obesity Peripheral arterial disease Pressure ulcers of skin of multiple topographic sites Type 2 diabetes mellitus Urinary retention Wound of left buttock Surgical History No significant past surgical history Family History Other Family history non-contributory Social History Smoking Status: Never smoker Second Hand Exposure: No; Hx Alcohol Use: No Hx Substance Use: No Preferred Language: Georgian Communication Ability: Effective Director Operations Broadcast Required: No Beliefs That Will Affect Care: None marital status: Current Living Situation: Spouse Current Living Situation Comment: one story set up, 1 step to enter How many Children do You have: 1 Feels Safe at Home: Yes Safety Concerns: Feels Safe At This Time Assistive Devices: Bedside Commode, Hospital Bed, Lift Chair and Walker Review of Systems Review of Systems: All systems reviewed & are unremarkable except as noted in HPI & below Physical Exam Physical Exam: General: Comfortable, no acute distress Eyes: Sclerae anicteric Lungs: Clear to auscultation anteriorly Cardiac: Regular rate and rhythm, 2 out of 6 systolic ejection murmur Abdomen: Soft, nontender Neuro: Nonfocal Psych: Alert orient x3, normal affect and mood Extremities/Vascular: -- 2+ radial bilaterally -- 1+ femoral pulses bilaterally --1+ DP/PT on right. Nonpalpable DP pulse on left. Ankle dressed. Sluggish capillary refill on left -- Left leg dressed Results & Data ([facility]) Vital Signs (Past 12 Hours) Vital Signs Temp Pulse Pulse Resp BP Pulse Ox O2 Del Method 07/07/22 15:38 98.2 F 93 H 20 129/72 94 Room Air 07/07/22 12:06 97.3 F L 69 18 122/69 95 Room Air 07/07/22 08:00 72 07/07/22 08:00 Room Air 07/07/22 08:01 97.5 F L 75 20 131/73 95 Room Air PG Care Time/CCT Total # of Minutes Spent Total Time Spent with Patient: Total time spent is greater than 50% in coordination of care (as documented) at patient's floor/unit and/or counseling patient: Coding Level of Care Code INP/OBS CONSULT LVL 4, 60 MIN Diagnoses Septic arthritis of left ankle M00.9
[2022-07-08] MEDS: VANCOMYCIN HCL 1,500 MG in SODIUM CHLORIDE 0.9% 500 ML IV SCH ×2 (05:34→16:28)
[2022-07-08 06:47] LABS: BUN Creatinine Ratio 36.5 (10-20); Creatinine Clr Calc Pharmacy 128.4 ml/min; Est GFR (African American) 118.7 ml/min; Est GFR (Non-African American) 102.4 ml/min; Potassium 3.5 mmol/L (3.5-5.1)
[2022-07-08] MEDS: METOPROLOL TARTRATE 25 MG TAB PO SCH ×2 (09:34→21:02)
[2022-07-08] MEDS: DOCUSATE SODIUM 100 MG CAP PO SCH ×2 (09:35→21:01)
[2022-07-08] MEDS: MULTIVITAMIN TAB PO SCH (09:35)
[2022-07-08] MEDS: FUROSEMIDE 20 MG TAB PO SCH (09:36)
[2022-07-08] MEDS: SPIRONOLACTONE 25 MG TAB PO SCH (09:36)
[2022-07-08] MEDS: SACCHAROMYCES BOULARDII 250 MG CAP PO SCH (09:37)
[2022-07-08] MEDS: INSULIN ASPART PER UNIT SC SCH ×4 (09:58→21:00)
[2022-07-08] MEDS: POLYETHYLENE (MIRALAX) 17 GM PACK PO SCH (10:03)
[2022-07-08] MEDS: ENOXAPARIN INJ 30 MG/0.3 ML SYR SQ SCH ×2 (10:04→21:00)
[2022-07-08] MEDS: traMADol HCL 50 MG TABLET PO PRN ×2 (10:04→18:07)
[2022-07-08] MEDS: HYDROCODONE/ACETAMOPHEN 5/325MG TAB PO PRN (12:55)
--- NOTE | 2022-07-08 15:07 | Hospitalist Progress Note ---
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 Left Knee MRSA Septic Arthritis Stage 4 Left ankle ulcer Stage 4 left buttock ulcer MRSA Bacteremia -History of MSSA Aortic valve endocarditis, previously on daptomycin then finished 6 week course with cefazolin. History of MRSA growth on sacral wound and left ankle ulcer -was on ceftriaxone and vancomycin. Ceftriaxone discontinued -ID consult on board -OR 07/04 left knee: washout, drain placed -OR 07/06 left ankle: washout and debridement, left distal fibula biopsy, drain placed - Blood cx on 07/03, culture from the L knee and L ankle positive for MRSA - Left decubitus wound grew staph species -TTE results noted, aortic valve not well visualized. -Repeat blood cx on 07/05 positive for gram positive cocci clusters -ID on board recommended 6 weeks of IV abx with Vanco - Repeat blood cx on 07/08/22 -If blood cx continues to be positive, will need to consider JILLIAN; but She said that she would not get any JILLIAN -If repeat blood cx negative, will place PICC prior discharge -Will need to check CBC, BMP and Vanco trough ( 15 - 20) weekly while on IV Vanco -Case discussed with Intervention cardiology for evaluation forleft lower extremity angiogram and possible endovascular intervention Will make NPO after midnight for the left lower extremity angiogram Chronic diastolic CHF Aortic Stenosis Histor of Aortic Valve MSSA endocarditis Difficult to assess fluid status on exam. CXR negative for pulmonary edema. BNP mildly elevated (better than her baseline) Continue lasix 20mg PO daily, Metoprolol 25mg BID, spironolactone 50mg daily with hold parameters IDDM -HA1c 10.5% -Lantus 20 units daily--continue, Metformin 500mg BID--will hold -correctional scale insulin, lantus 10 units daily (lantus dose reduced due to intermittently being NPO for surgery, can up titrate her insulin once no further plans for surgery) DVT ppx On Lovenox BID as per Ortho Admission and Anticipated Discharge Date Admission Date: July 03, 2022 Subjective Pt was seen and examined for follow up of bacteremia, L knee and L ankle wound infected Lying in bed with no acute distress Pt said that she feels ok She called her daughter over the phone and i was able to update the daughter and answered all her questions Denies any chest pain, palpitation, dizziness and SOB Review of Systems Review of Systems: All systems reviewed & are unremarkable except as noted in Subjective Physical Exam Physical Exam: General- No acute distress Head- atraumatic Eyes- PERRL, EOMI, ENT- oropharynx clear Neck- supple, no JVD Lungs- clear to auscultation Heart- regular rhythm; +systolic murmur Abdomen- normal bowel sounds, soft, nontender Extremities- no calf tenderness, Left knee and left ankle dressing Neuro- alert, oriented x 3; PERRL, EOMI; no facial palsy; no dysarthria Skin- warm & dry Results & Data Results & Data ([facility]) Vital Signs (Past 12 Hours) Vital Signs Temp Pulse Pulse Resp BP Pulse Ox O2 Del Method 07/08/22 12:27 36.9 C 91 H 18 97/59 L 92 Room Air 07/08/22 07:00 80 07/08/22 09:31 36.5 C 84 18 98/60 L 93 Room Air
--- NOTE | 2022-07-08 16:27 | Orthopedic Progress Note ---
Date of Service July 08, 2022 Assessment & Plan (1) Septic arthritis of left ankle: Plan: POD 2 - s/p I&D left ankle, biopsy of left distal fibula WBAT PT/OT ROM as tolerated WOund care as per wound care nurse Biopsy results pending - will follow Dressings changed today. Light dressing applied to left ankle. For angiogram tomorrow (2) Septic arthritis of knee, left: Plan: POD 4 - s/p I&D left knee, arthritis left knee WBAT PT/OT ROM as tolerated No dressings needed to left knee incisions. Cover with band-aids PRN. (3) Pressure ulcer of left ankle, stage 4: Plan: Continue care by wound care nurse Optifoam and aquacel AG applied today. For angiogram tomorrow morning. Admission and Anticipated Discharge Date Admission Date: July 03, 2022 Subjective Resting comfortably in bed, denies pain in left ankle, some pain in left knee. Has angiogram tomorrow. Physical Exam Musculoskeletal: Left knee: incisions clean, dry and intact. Sutures retained. No effusion to left knee, +crepitation with gentle ROM Left ankle: no edema, no ankle effusion. Incisions clean, dry and intact. sutures retained, skin edges well approximated. Tolerates ankle ROm left ankle without pain. Left ankle wound dry, no drainage. Results & Data ([facility]) Vital Signs (Past 12 Hours) Vital Signs Temp Pulse Pulse Resp BP Pulse Ox O2 Del Method 07/08/22 15:00 85 07/08/22 15:55 36.6 C 82 20 125/67 93 Room Air 07/08/22 12:27 36.9 C 91 H 18 97/59 L 92 Room Air 07/08/22 07:00 80 07/08/22 09:31 36.5 C 84 18 98/60 L 93 Room Air Laboratory Results 07/08/22 07/08/22 07/08/22 Range/Units 16:25 11:37 07:20 WBC (4.8-10.8) K/ul RBC (4.20-5.40) M/uL Hgb (12.0-16.0) g/dl Hct (37.0-47.0) % MCV (80.0-100.0) fL MCH (25.0-34.0) pg MCHC (32.0-36.0) g/dL RDW Std Deviation (36.4-46.3) fL RDW Coeff of Chintan (11.5-14.5) % Plt Count (130-400) K/uL MPV (9.4-12.4) fL Sodium (136-145) mmol/L Potassium (3.5-5.1) mmol/L Chloride (98-107) mmol/L Carbon Dioxide (21-32) mmol/L Anion Gap (3-11) BUN (6-23) mg/dl Creatinine (0.6-1.2) mg/dl Est Cr Clr Drug Dosing ml/min Est GFR ( Amer) ml/min Est GFR (Non-Af Amer) ml/min BUN/Creatinine Ratio (10-20) Glucose (70-99(Fasting)) mg/dl POC Glucose 165 H 203 H 129 H (70-99) mg/dl Calcium (8.5-10.1) mg/dl 07/08/22 07/07/22 07/07/22 Range/Units 06:03 20:09 17:30 WBC (4.8-10.8) K/ul RBC (4.20-5.40) M/uL Hgb (12.0-16.0) g/dl Hct (37.0-47.0) % MCV (80.0-100.0) fL MCH (25.0-34.0) pg MCHC (32.0-36.0) g/dL RDW Std Deviation (36.4-46.3) fL RDW Coeff of Chintan (11.5-14.5) % Plt Count (130-400) K/uL MPV (9.4-12.4) fL Sodium 137 134 L (136-145) mmol/L Potassium 3.5 3.5 (3.5-5.1) mmol/L Chloride 104 101 (98-107) mmol/L Carbon Dioxide 24 25 (21-32) mmol/L Anion Gap 9 8 (3-11) BUN 19 23 (6-23) mg/dl Creatinine 0.52 L 0.78 (0.6-1.2) mg/dl Est Cr Clr Drug Dosing 128.4 85.7 ml/min Est GFR ( Amer) 118.7 94.4 ml/min Est GFR (Non-Af Amer) 102.4 81.5 ml/min BUN/Creatinine Ratio 36.5 H 29.5 H (10-20) Glucose 122 H 168 H (70-99(Fasting)) mg/dl POC Glucose 144 H (70-99) mg/dl Calcium 8.0 L 8.6 (8.5-10.1) mg/dl 07/07/22 Range/Units 17:30 WBC 10.72 (4.8-10.8) K/ul RBC 3.05 L (4.20-5.40) M/uL Hgb 9.4 L (12.0-16.0) g/dl Hct 27.1 L (37.0-47.0) % MCV 88.9 (80.0-100.0) fL MCH 30.8 (25.0-34.0) pg MCHC 34.7 (32.0-36.0) g/dL RDW Std Deviation 44.0 (36.4-46.3) fL RDW Coeff of Chintan 13.5 (11.5-14.5) % Plt Count 390 (130-400) K/uL MPV 9.1 L (9.4-12.4) fL Sodium (136-145) mmol/L Potassium (3.5-5.1) mmol/L Chloride (98-107) mmol/L Carbon Dioxide (21-32) mmol/L Anion Gap (3-11) BUN (6-23) mg/dl Creatinine (0.6-1.2) mg/dl Est Cr Clr Drug Dosing ml/min Est GFR ( Amer) ml/min Est GFR (Non-Af Amer) ml/min BUN/Creatinine Ratio (10-20) Glucose (70-99(Fasting)) mg/dl POC Glucose (70-99) mg/dl Calcium (8.5-10.1) mg/dl Microbiology 07/05/22 11:15 Gram Stain - Final Hip,Left Decubitus Aerobic and Anaerobic Culture - Preliminary Staph aureus MRSA Sugarldgrace magna 07/03/22 14:13 Gram Stain - Final Knee,Left Aerobic and Anaerobic Culture - Final Staph aureus MRSA 07/03/22 10:51 Aerobic Blood Culture - Final Blood No growth in Aerobic bottle after 5 days. Anaerobic Blood Culture - Preliminary Staph aureus MRSA 07/06/22 Unknown Gram Stain - Final Ankle,Left Aerobic and Anaerobic Culture - Preliminary Staph aureus MRSA 07/05/22 07:33 Aerobic Blood Culture - Preliminary Blood Gram positive cocci clusters Anaerobic Blood Culture - Preliminary No growth in Anaerobic bottle after 48 hours. 07/05/22 07:20 Aerobic Blood Culture - Preliminary Blood No growth in Aerobic bottle after 48 hours. Anaerobic Blood Culture - Preliminary No growth in Anaerobic bottle after 48 hours. 07/06/22 Unknown Gram Stain - Final Ankle Aerobic and Anaerobic Culture - Preliminary No growth to date. Distal fibular biopsy pending.
[2022-07-08] MEDS: MELATONIN 3 MG TAB PO SCH (21:00)
[2022-07-08] MEDS: LANTUS PER UNIT CHARGE SQ SCH (21:00)
[2022-07-08] MEDS: SENNA 8.6 MG TAB PO SCH (21:02)
[2022-07-09] MEDS: HYDROCODONE/ACETAMOPHEN 5/325MG TAB PO PRN ×3 (01:29→17:30)
[2022-07-09] MEDS ORDERED: VANCOMYCIN LEVEL ONE (05:00)
[2022-07-09] MEDS: VANCOMYCIN HCL 1,500 MG in SODIUM CHLORIDE 0.9% 500 ML IV SCH ×2 (05:38→17:13)
[2022-07-09 06:15] LABS: Creatinine Clr Calc Pharmacy 115.4 ml/min; Est GFR (African American) 113.9 ml/min; Est GFR (Non-African American) 98.2 ml/min
[2022-07-09] MEDS ORDERED: fentaNYL citrate 100 MCG/2 ML VIAL ONE (07:28)
[2022-07-09] MEDS ORDERED: niCARdipine HCL INJ 2.5 MG/ML 10 ML AMP ONE (07:28)
[2022-07-09] MEDS ORDERED: HEPARIN (PORCINE) 1000 UNIT/ML 10 ML (CATH LAB USE ONLY) ONE (07:28)
[2022-07-09] MEDS ORDERED: NITROGLYCERIN/D5W 100MCG/ML 20ML SYR ONE (07:28)
[2022-07-09] MEDS ORDERED: MIDAZOLAM HCL 5 MG/ML 1 ML VIAL ONE (07:29)
--- NOTE | 2022-07-09 07:29 | Pharmacy Report ---
Pharmacy Vanc AUC Short Note - Date of Service July 09, 2022 - Assessment & Plan Assessment 62 year old F receiving vancomycin for treatment of MRSA bacteremia. Pertinent microbiologic data includes: blood culture growing MRSA from 07/03/22. Blood culture from 07/08 pending. Day # 7 of antimicrobial therapy. Plan Vancomycin * AUC/SAMMI is the preferred PK/PD target for vancomycin * AUC guided dosing is effective and associated with decreased risk of nephrotoxicity compared to traditional trough targets * Trough level of 17.9 mcg/mL is predicted to achieve target AUC/SAMMI of 400-600 mg/L.hr and may be associated with a 13 % risk of nephrotoxicity * Continue dose of 1500 mg IV every 12 hours * Trough ordered for: 07/11/22 - close monitoring due to concern for accumulation with body habitus Pharmacy will continue to follow and will adjust dose/frequency as necessary. Thank you.
--- NOTE | 2022-07-09 08:32 | Post Anesthesia Assessment ---
Date of Service July 09, 2022 Post Sedation Assessment Vital Signs Temp Pulse Pulse Pulse Resp BP BP 07/09/22 07:50 79 07/09/22 07:05 80 18 145/77 H 07/09/22 02:57 98.4 F 79 18 108/62 07/09/22 00:00 89 07/08/22 23:00 98.1 F 93 H 20 127/74 07/08/22 21:00 07/08/22 19:07 97.5 F L 92 H 18 151/73 H 07/08/22 15:00 85 07/08/22 15:55 97.9 F 82 20 125/67 07/08/22 12:27 98.4 F 91 H 18 97/59 L 07/08/22 09:31 97.7 F 84 18 98/60 L Pulse Ox O2 Del Method 07/09/22 07:50 07/09/22 07:05 94 Room Air 07/09/22 02:57 93 Room Air 07/09/22 00:00 07/08/22 23:00 93 Room Air 07/08/22 21:00 Room Air 07/08/22 19:07 96 Room Air 07/08/22 15:00 07/08/22 15:55 93 Room Air 07/08/22 12:27 92 Room Air 07/08/22 09:31 93 Room Air Recovery Score Activity: Moves 4 extremities Respiration: Deep Breath/Cough Circulation: +/-20% PreAnes Value Consciousness: Fully Awake Oxygen Saturation: > 92% On Room Air Post Anesthesia Score: 10 Discharge Sedation Level of Care: Fast Track Phase II Post Sedation Plan On clinical assessment, the patient appears to have tolerated the sedation without complications. Patient is recovering as anticipated. Patient will continue to be monitored by nursing and may be discharged when sedation discharge criteria are met per below protocol. Upon Completions of procedure up to 15 minutes continue every 5 minute vital signs and the P.A.R. score; then discharge to a Phase I or Fast Track to Phase II per the following guidelines: * Discharge Patient to appropriate Phase II area if PAR is 8 or greater or return to pre- procedure baseline. The post - procedure orders will be as directed. * If PAR score is less than 8 or not return to pre-procedure baseline then patient will follow Phase I monitoring till PAR is reached for Phase II. The Phase I may be done in procedure room or may call to secure a Phase I area. * If naloxone or flumazenil are used for reversal, hold in Phase I for continued monitoring from when last reversal dose was given for a minimum of 60 minutes or longer pending the nurse and/or physician discretion of patient condition before discharge to Phase II. Please call the Sedation Physician to re-evaluate and complete post-note for discharge to Phase II area. Do NOT discharge from procedure sedation or Phase 1 until post- sedation evaluation note is complete by procedure /sedation MD Sedation Discharge Instructions to be given to the patient at discharge to home.
--- NOTE | 2022-07-09 08:32 | Pre Anesthesia Assessment ---
Date of Service July 09, 2022 Pre Sedation Assessment Vital Signs Temp Pulse Pulse Pulse Resp BP BP 07/09/22 07:50 79 07/09/22 07:05 80 18 145/77 H 07/09/22 02:57 98.4 F 79 18 108/62 07/09/22 00:00 89 07/08/22 23:00 98.1 F 93 H 20 127/74 07/08/22 21:00 07/08/22 19:07 97.5 F L 92 H 18 151/73 H 07/08/22 15:00 85 07/08/22 15:55 97.9 F 82 20 125/67 07/08/22 12:27 98.4 F 91 H 18 97/59 L 07/08/22 09:31 97.7 F 84 18 98/60 L Pulse Ox O2 Del Method 07/09/22 07:50 07/09/22 07:05 94 Room Air 07/09/22 02:57 93 Room Air 07/09/22 00:00 07/08/22 23:00 93 Room Air 07/08/22 21:00 Room Air 07/08/22 19:07 96 Room Air 07/08/22 15:00 07/08/22 15:55 93 Room Air 07/08/22 12:27 92 Room Air 07/08/22 09:31 93 Room Air Cardiovascular + regular rhythm Respiratory normal respiratory effort, lungs clear to auscultation Pre-Sedation Airway Assessment Smoking Status: Never smoker Hx Sleep Apnea: No Hx Difficult Intubation: No Short, Thick Neck: No Thyromental Distance: > or= 3.5 Finger Breadths Oral Cavity: + Chipped Teeth Mallampati Class: II ASA: ASA2 NPO Status Date of Last Intake of Fluids: 07/08/22 Time of Last Intake of Fluids: 20:00 Date of Last Intake of Solid Food: 07/08/22 Time of Last Intake of Solid Foods: 20:00 Procedure Planning Contraindications for Sedation: none Current Medications Reviewed: Yes Notes The planned sedation has been discussed with the patient. Informed Consent was obtained. I have identified the patient, determined the appropriateness of sedation and have assessed the patient immediately prior to the procedure. All medicine(s) and interventions are by my order.
--- NOTE | 2022-07-09 08:48 | Endovascular Procedure Note ---
[facility] Endovascular Procedure Rpt Pre & Post Diagnosis Peripheral arterial disease I identified the patient and participated in the time-out.: Yes Procedure Operation Date: 07/09/22 07:15 Actual Procedures p Angio Extremity Unilateral - Hiren Fields MD Surgeon Kunal Fields MD Director Telemetry Dejuan Estimated Blood Loss 10 Findings Consistent with Post-Op Diagnosis Abdominal aorta--no significant aneurysmal or stenotic disease Right lower extremity-- -Common iliac, external iliac, internal iliac widely patent =Left lower extremity-- -Common iliac, external iliac, internal iliac widely patent -HEAD TEACHER, profunda widely patent -SFA widely patent -Popliteal widely patent -VALORIE widely patent into the foot -BEAUTY CULTURIST calcified, diffuse severe disease up to 95% in proximal/mid segments 100% distal occlusion. Fills retrograde via plantar arch/plantar arteries to the level of the ankle Peroneal widely patent to the ankle -DPA widely patent, intact pedal arch and medial/lateral plantar arteries fill retrograde Anesthesia Type RN Sedation Radiation Exposure (mGv) Radiation (mGy): 525 Contrast Contrast: 40 Complications none Disposition Accompanied Patient To Recovery: No Disposition: PCU Description of Procedure Left radial artery access obtained with placement of 5 Fr slender sheath Abdominal aortogram and proximal bilateral lower extremity angiogram performed pigtail catheter Selective angiography with 5 Fr multipurpose placed into SFA Contrast used: 40 Moderate sedation: [id number] Access closure: TR band Summary: 1. Left lower extremity: Widely patent iliacs, HEAD TEACHER, SFA and popliteal arteries. Brisk two-vessel runoff to the ankle via widely patent VALORIE, peroneal arteries. 100% occluded distal BEAUTY CULTURIST fills retrograde in the foot via intact pedal arch and plantar arteries. 2. Right lower extremity --widely patent iliacs. Recommendations: Patient with brisk, inline flow to her ankle. Arterial perfusion should be adequate to heal surgical wounds. No need for intervention on chronically occluded BEAUTY CULTURIST. Continue secondary ASCVD risk factor modification I attest to the content of the Intraoperative Record and any orders documented therein. Any exceptions are noted below. Vascular Charges Angiography/Venography Procedure 1: Angiography/Venography charges: [id number] Initial 3rd order or selective abd, pelvic, or LE branch Procedure 2: Angiography/Venography charges: [id number] Aortography, abd + b/l iliofem LE, catheter, radiological S&I Additional Services Procedure 1: Additional Services Charges: 96887 Moderate sedation initial 15 min Procedure 2: Additional Services Charges: 96443 Moderate sedation, each additional 15 min
[2022-07-09] MEDS: DOCUSATE SODIUM 100 MG CAP PO SCH ×2 (09:36→20:29)
[2022-07-09] MEDS: METOPROLOL TARTRATE 25 MG TAB PO SCH ×2 (09:37→20:30)
[2022-07-09] MEDS: MULTIVITAMIN TAB PO SCH (09:38)
[2022-07-09] MEDS: FUROSEMIDE 20 MG TAB PO SCH (09:38)
[2022-07-09] MEDS: POLYETHYLENE (MIRALAX) 17 GM PACK PO SCH (09:38)
[2022-07-09] MEDS: SACCHAROMYCES BOULARDII 250 MG CAP PO SCH (09:39)
[2022-07-09] MEDS: SPIRONOLACTONE 25 MG TAB PO SCH (09:39)
[2022-07-09] MEDS: ENOXAPARIN INJ 30 MG/0.3 ML SYR SQ SCH ×2 (09:49→20:28)
[2022-07-09] MEDS: INSULIN ASPART PER UNIT SC SCH ×4 (10:17→20:19)
[2022-07-09] MEDS: HYDROmorphone INJ 0.5 MG/0.5 ML SYR IV PRN (11:18)
--- NOTE | 2022-07-09 14:13 | Progress Notes ---
DATE OF SERVICE: 07/09/2022. Resting comfortably in bed. Results of her arteriogram are noted. The culture of the left distal fi bula is no growth to date. Path is pending. For now, continue DVT prophylaxis with Lovenox. Contin ue IV antibiotics. We will know a little bit more when the path report comes back. One possibility is trying to see if the lateral wound will now heal. Further surgery might be necessary if the later al wound is nonhealing. She may be out of bed with assist, weightbear as tolerated. Job ID: [id number]
[2022-07-09] MEDS: traMADol HCL 50 MG TABLET PO PRN (20:27)
[2022-07-09] MEDS: LANTUS PER UNIT CHARGE SQ SCH (20:27)
[2022-07-09] MEDS: SENNA 8.6 MG TAB PO SCH (20:29)
[2022-07-09] MEDS: MELATONIN 3 MG TAB PO SCH (20:36)
--- NOTE | 2022-07-09 22:10 | Hospitalist Progress Note ---
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 Left Knee MRSA Septic Arthritis Stage 4 Left ankle ulcer Stage 4 left buttock ulcer MRSA Bacteremia -History of MSSA Aortic valve endocarditis, previously on daptomycin then finished 6 week course with cefazolin. History of MRSA growth on sacral wound and left ankle ulcer -was on ceftriaxone and vancomycin. Ceftriaxone discontinued -ID consult on board -OR 07/04 left knee: washout, drain placed -OR 07/06 left ankle: washout and debridement, left distal fibula biopsy, drain placed - Blood cx on 07/03, culture from the L knee and L ankle positive for MRSA - Left decubitus wound grew staph species -TTE results noted, aortic valve not well visualized. -Repeat blood cx on 07/05 positive for gram positive cocci clusters - MRSA - Blood culture (3rd set) on 07/08 grew gram positive cocci in clusters -ID on board recommended 6 weeks of IV abx with Vanco - ID was notified about the positive blood cx -I since blood culture remain positive, will need to consider JILLIAN; but She said that she would not get any JILLIAN -Will consult cardiology to eval for JILLIAN -Once blood cx negative, will place PICC prior discharge -Will need to check CBC, BMP and Vanco trough ( 15 - 20) weekly while on IV Vanco -Intervention cardiology on board for evaluation forleft lower extremity angiogram and possible endovascular intervention -Arterial perfusion should be adequate to heal surgical wounds. No need for intervention on chronically occluded YARD BRAKEMAN as per interventional cardiology -Continue monitor closely Chronic diastolic CHF Aortic Stenosis Histor of Aortic Valve MSSA endocarditis Difficult to assess fluid status on exam. CXR negative for pulmonary edema. BNP mildly elevated (better than her baseline) Continue lasix 20mg PO daily, Metoprolol 25mg BID, spironolactone 50mg daily with hold parameters IDDM -HA1c 10.5% -Lantus 20 units daily--continue, Metformin 500mg BID--will hold -correctional scale insulin, lantus 10 units daily (lantus dose reduced due to intermittently being NPO for surgery, can up titrate her insulin once no further plans for surgery) DVT ppx On Lovenox BID as per Ortho Admission and Anticipated Discharge Date Admission Date: July 03, 2022 Subjective Pt was seen and examined for follow up of bacteremia, L knee and L ankle wound infected Lying in bed with no acute distresswith at bedside Pt said that she feels ok Not too happy about the PICC line Denies any chest pain, palpitation, dizziness and SOB Review of Systems Review of Systems: All systems reviewed & are unremarkable except as noted in Subjective Physical Exam Physical Exam: General- No acute distress Head- atraumatic Eyes- PERRL, EOMI, ENT- oropharynx clear Neck- supple, no JVD Lungs- clear to auscultation Heart- regular rhythm; +systolic murmur Abdomen- normal bowel sounds, soft, nontender Extremities- no calf tenderness, Left knee and left ankle dressing Neuro- alert, oriented x 3; PERRL, EOMI; no facial palsy; no dysarthria Skin- warm & dry Results & Data Results & Data ([facility]) Vital Signs (Past 12 Hours) Vital Signs Temp Pulse Pulse Pulse Resp BP Pulse Ox 07/09/22 20:00 07/09/22 19:43 36.7 C 89 17 109/62 94 07/09/22 15:00 36.7 C 87 16 145/70 H 95 07/09/22 15:28 80 07/09/22 13:30 36.7 C 78 18 120/66 94 07/09/22 12:29 36.7 C 75 18 117/66 96 07/09/22 11:30 36.4 C L 75 18 127/74 95 07/09/22 10:30 36.7 C 82 16 115/72 94 07/09/22 10:00 36.4 C L 87 16 135/75 94 07/09/22 10:00 36.4 C L 92 H 16 118/69 94 O2 Del Method 07/09/22 20:00 Room Air 07/09/22 19:43 Room Air 07/09/22 15:00 Room Air 07/09/22 15:28 07/09/22 13:30 Room Air 07/09/22 12:29 Room Air 07/09/22 11:30 Room Air 07/09/22 10:30 Room Air 07/09/22 10:00 Room Air 07/09/22 10:00 Room Air
[2022-07-10] MEDS: HYDROCODONE/ACETAMOPHEN 5/325MG TAB PO PRN ×3 (01:36→18:40)
[2022-07-10] MEDS: VANCOMYCIN HCL 1,500 MG in SODIUM CHLORIDE 0.9% 500 ML IV SCH ×2 (05:47→17:03)
[2022-07-10 05:59] LABS: Hematocrit (blood only) 24.5 % (37.0-47.0); Hemoglobin 8.4 g/dl (12.0-16.0); Mean Corpuscular Hemoglobin 30.4 pg (25.0-34.0); Mean Corpuscular Hgb Conc 34.3 g/dL (32.0-36.0); Mean Corpuscular Volume 88.8 fL (80.0-100.0); Platelet Count 344 K/uL (130-400); RDW Coefficient of Variation 13.3 % (11.5-14.5); RDW Standard Deviation 42.7 fL (36.4-46.3); Red Blood Count 2.76 M/uL (4.20-5.40); White Blood Count 10.94 K/ul (4.8-10.8)
[2022-07-10 06:21] LABS: BUN Creatinine Ratio 38.5 (10-20); Calcium 8.4 mg/dl (8.5-10.1); Creatinine Clr Calc Pharmacy 132.9 ml/min; Est GFR (African American) 118.7 ml/min; Est GFR (Non-African American) 102.4 ml/min; Potassium 3.3 mmol/L (3.5-5.1)
[2022-07-10] MEDS ORDERED: POTASSIUM CHLORIDE 10 MEQ TABCR PO STA (07:51)
[2022-07-10] MEDS: INSULIN ASPART PER UNIT SC SCH ×4 (08:17→21:30)
[2022-07-10] MEDS: DOCUSATE SODIUM 100 MG CAP PO SCH ×2 (08:19→17:04)
[2022-07-10] MEDS: ENOXAPARIN INJ 30 MG/0.3 ML SYR SQ SCH ×2 (08:19→21:46)
[2022-07-10] MEDS: POLYETHYLENE (MIRALAX) 17 GM PACK PO SCH (08:19)
[2022-07-10] MEDS: FUROSEMIDE 20 MG TAB PO SCH (08:20)
[2022-07-10] MEDS: METOPROLOL TARTRATE 25 MG TAB PO SCH ×2 (08:21→21:46)
[2022-07-10] MEDS: SACCHAROMYCES BOULARDII 250 MG CAP PO SCH (08:21)
[2022-07-10] MEDS: MULTIVITAMIN TAB PO SCH (08:21)
[2022-07-10] MEDS: SPIRONOLACTONE 25 MG TAB PO SCH (08:22)
--- NOTE | 2022-07-10 13:20 | Cardiology Consultation ---
Date of Consultation July 10, 2022 Assessment & Plan (1) MSSA bacteremia: (2) Aortic stenosis: Plan Patient referred for consideration of transesophageal echocardiogram. Persistent bacteremia with possible multiple sources Discussed transesophageal echocardiogram with patient, she is reluctant to repeat and will discuss with family We will recontact in a.m. to discuss possible scheduling Tuesday or Tuesday if patient is then agreeable History of Present Illness Reason for Consultation: Bacteremia, need for JILLIAN Requesting Physician: Dr. Blake Attending Physician: Marie Blake MD History of Present Illness Patient is a 62-year-old female referred for evaluation due to persistent bacteremia, osteomyelitis Primary service requesting transesophageal echocardiogram Transthoracic study technically limited but with preserved LV systolic function no gross vegetations observed Transesophageal echocardiogram previously performed on 04/29/2022 for similar concern without noted vegetation Patient currently in no respiratory distress. No history of dysphagia, esophageal or gastric ulcer. No complications with past sedation or anesthesia Poor dentition but no loose teeth Allergies Allergy/AdvReac Type Severity Reaction Status Date / Time No Known Allergies Allergy Verified 07/03/22 01:35 Home Medications Medication Instructions Recorded Confirmed Type blood sugar diagnostic ([employer] #50 ea 04/14/22 04/19/22 Rx Ultra Test strips) blood-glucose meter ([employer] #1 ea 04/14/22 04/19/22 Rx Ultra2 Meter) lancets 33 gauge ([employer] Delica #100 ea 04/14/22 04/19/22 Rx Lancets) acetaminophen 325 mg capsule 325 mg PO Q6H PRN fever or pain 05/12/22 07/03/22 Rx (Tylenol) #30 caps furosemide 20 mg tablet (Lasix) 20 mg PO DAILY #30 tabs 05/12/22 07/03/22 Rx metoprolol tartrate 25 mg tablet 25 mg PO BID #60 tabs 05/12/22 07/03/22 Rx polyethylene glycol 3350 17 17 g PO DAILY PRN constipation 05/12/22 07/03/22 Rx gram/dose oral powder (Miralax) #119 grams potassium chloride 20 mEq 20 meq PO QAM #30 tabs 05/12/22 07/03/22 Rx tablet,extended release(part/cryst) spironolactone 50 mg tablet 50 mg PO DAILY #30 tabs 05/12/22 07/03/22 Rx insulin glargine 100 unit/mL (3 20 unit subcut PM 07/03/22 07/03/22 History mL) subcutaneous pen loperamide 2 mg tablet 2 mg PO DIRECTED PRN Diarrhea 07/03/22 07/03/22 History melatonin 5 mg tablet 5 mg PO HS 07/03/22 07/03/22 History metformin 500 mg tablet,extended 500 mg PO BIDM 07/03/22 07/03/22 History release 24 hr multivitamin 1 tab PO DAILY 07/03/22 07/03/22 History nystatin 100,000 unit/gram topical 1 applic topical BID PRN Rash 07/03/22 07/03/22 History powder Patient History Medical History Acute metabolic encephalopathy Ambulatory dysfunction Aortic stenosis FRIDA 1.1cm2 04/04/22 Chronic diastolic CHF (congestive heart failure) Cirrhosis Dilated cardiomyopathy Generalized weakness Mitral regurgitation MSSA bacteremia Obesity Peripheral arterial disease Pressure ulcers of skin of multiple topographic sites Type 2 diabetes mellitus Urinary retention Wound of left buttock Surgical History No significant past surgical history Family History Other Family history non-contributory Social History Smoking Status: Never smoker Second Hand Exposure: No; Hx Alcohol Use: No Hx Substance Use: No Preferred Language: [place] Communication Ability: Effective 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 Beliefs That Will Affect Care: None marital status: Current Living Situation: Spouse Current Living Situation Comment: one story set up, 1 step to enter How many Children do You have: 1 Feels Safe at Home: Yes Safety Concerns: Feels Safe At This Time Assistive Devices: Bedside Commode, Hospital Bed, Lift Chair and Walker Physical Exam Constitutional: + morbidly obese; no acute distress Eyes: PERRL, conjunctivae normal, anicteric sclerae ENMT: Mouth: + poor dentition Neck: trachea midline, no thyromegaly Results & Data ([facility]) Vital Signs (Past 12 Hours) Vital Signs Temp Pulse Resp BP Pulse Ox O2 Del Method 07/10/22 11:58 36.7 C 76 18 95/56 L 96 Room Air 07/10/22 08:00 Room Air 07/10/22 07:23 36.6 C 96 H 18 131/70 95 Room Air 07/10/22 03:40 36.5 C 77 17 109/64 93 Room Air
--- NOTE | 2022-07-10 16:19 | Hospitalist Progress Note ---
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 Left Knee MRSA Septic Arthritis Stage 4 Left ankle ulcer Stage 4 left buttock ulcer MRSA Bacteremia -History of MSSA Aortic valve endocarditis, previously on daptomycin then finished 6 week course with cefazolin. History of MRSA growth on sacral wound and left ankle ulcer -was on ceftriaxone and vancomycin. Ceftriaxone discontinued -ID consult on board -OR 07/04 left knee: washout, drain placed -OR 07/06 left ankle: washout and debridement, left distal fibula biopsy, drain placed - Blood cx on 07/03, culture from the L knee and L ankle positive for MRSA - Left decubitus wound grew staph species -TTE results noted, aortic valve not well visualized. -Repeat blood cx on 07/05 positive for gram positive cocci clusters - MRSA - Blood culture (3rd set) on 07/08 grew gram positive cocci in clusters -ID on board recommended 6 weeks of IV abx with Vanco - ID was notified about the positive blood cx - repeat blood cx collected this morning ( 07/10) -Since blood culture remain positive, will need to consider JILLIAN; but She said that she would not get any JILLIAN -Cardiology consulted to eval for JILLIAN - Plan for possible Tuesday or Tuesday if pt agrees to proceed with JILLIAN -Once blood cx negative, will place PICC prior discharge -Will need to check CBC, BMP and Vanco trough ( 15 - 20) weekly while on IV Vanco -Intervention cardiology on board for evaluation forleft lower extremity angiogram and possible endovascular intervention -Arterial perfusion should be adequate to heal surgical wounds. 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 CXR negative for pulmonary edema. BNP mildly elevated (better than her baseline) Continue lasix 20mg PO daily, Metoprolol 25mg BID, spironolactone 50mg daily with hold parameters IDDM -HA1c 10.5% -Lantus 20 units daily--continue, Metformin 500mg BID--will hold -correctional scale insulin, lantus 10 units daily (lantus dose reduced due to intermittently being NPO for surgery, can up titrate her insulin once no further plans for surgery) DVT ppx On Lovenox BID as per Ortho Admission and Anticipated Discharge Date Admission Date: July 03, 2022 Subjective Pt was seen and examined for follow up of bacteremia, L knee and L ankle wound infected Lying in bed with no acute distresswith at bedside She was not too happy early because she did not know why she was NPO She was placed NPO last night in case JILLIAN was going to perform this morning after 3rd blood cx set was positive for gram positive cocci in clusters Denies any chest pain, palpitation, dizziness and SOB Review of Systems Review of Systems: All systems reviewed & are unremarkable except as noted in Subjective Physical Exam Physical Exam: General- No acute distress Head- atraumatic Eyes- PERRL, EOMI, ENT- oropharynx clear Neck- supple, no JVD Lungs- clear to auscultation Heart- regular rhythm; +systolic murmur Abdomen- normal bowel sounds, soft, nontender Extremities- no calf tenderness, Left knee suture/surgical area with no drainage or erythema =, +Swelling in knee and ankle Neuro- alert, oriented x 3; PERRL, EOMI; no facial palsy; no dysarthria Skin- warm & dry Results & Data Results & Data ([facility]) Vital Signs (Past 12 Hours) Vital Signs Temp Pulse Resp BP Pulse Ox O2 Del Method 07/10/22 15:15 36.9 C 97 H 17 112/61 93 Room Air 07/10/22 14:49 90 18 133/73 07/10/22 11:58 36.7 C 76 18 95/56 L 96 Room Air 07/10/22 08:00 Room Air 07/10/22 07:23 36.6 C 96 H 18 131/70 95 Room Air
[2022-07-10] MEDS: LOPERAMIDE HCL 2 MG CAP PO PRN (21:45)
[2022-07-10] MEDS: SENNA 8.6 MG TAB PO SCH (21:47)
[2022-07-10] MEDS: LANTUS PER UNIT CHARGE SQ SCH (22:05)
[2022-07-10] MEDS: MELATONIN 3 MG TAB PO SCH (22:07)
[2022-07-11] MEDS: traMADol HCL 50 MG TABLET PO PRN ×2 (03:44→16:51)
[2022-07-11] MEDS ORDERED: VANCOMYCIN LEVEL ONE (04:30)
[2022-07-11 05:15] LABS: Creatinine Clr Calc Pharmacy 121.1 ml/min; Est GFR (African American) 115.2 ml/min; Est GFR (Non-African American) 99.4 ml/min
[2022-07-11] MEDS: ENOXAPARIN INJ 30 MG/0.3 ML SYR SQ SCH ×2 (08:43→20:44)
[2022-07-11] MEDS: DOCUSATE SODIUM 100 MG CAP PO SCH ×2 (08:43→20:43)
[2022-07-11] MEDS: FUROSEMIDE 20 MG TAB PO SCH (08:44)
[2022-07-11] MEDS: MULTIVITAMIN TAB PO SCH (08:44)
[2022-07-11] MEDS: METOPROLOL TARTRATE 25 MG TAB PO SCH ×2 (08:44→20:44)
[2022-07-11] MEDS: SPIRONOLACTONE 25 MG TAB PO SCH (08:45)
[2022-07-11] MEDS: SACCHAROMYCES BOULARDII 250 MG CAP PO SCH (08:45)
[2022-07-11] MEDS: POLYETHYLENE (MIRALAX) 17 GM PACK PO SCH (08:45)
[2022-07-11 08:54] LABS: Hematocrit (blood only) 25.4 % (37.0-47.0); Hemoglobin 8.8 g/dl (12.0-16.0); Mean Corpuscular Hemoglobin 30.8 pg (25.0-34.0); Mean Corpuscular Hgb Conc 34.6 g/dL (32.0-36.0); Mean Corpuscular Volume 88.8 fL (80.0-100.0); Mean Platelet Volume 9.1 fL (9.4-12.4); Platelet Count 372 K/uL (130-400); RDW Coefficient of Variation 13.4 % (11.5-14.5); RDW Standard Deviation 43.2 fL (36.4-46.3); Red Blood Count 2.86 M/uL (4.20-5.40); White Blood Count 11.07 K/ul (4.8-10.8)
[2022-07-11] MEDS: VANCOMYCIN HCL 1,500 MG in SODIUM CHLORIDE 0.9% 500 ML IV SCH (08:54)
[2022-07-11] MEDS: ACETAMINOPHEN 325 MG TAB PO PRN (08:54)
[2022-07-11] MEDS: INSULIN ASPART PER UNIT SC SCH ×4 (08:59→20:06)
[2022-07-11] MEDS: LOPERAMIDE HCL 2 MG CAP PO PRN ×2 (09:01→16:51)
--- NOTE | 2022-07-11 09:17 | Pharmacy Report ---
Pharmacy PK ABX Note - Date of Service July 11, 2022 - Assessment and Plan Assessment 62 year old F receiving vancomycin for treatment of bacteremia and septic arthritis of knee and ankle. 2/4 blood cultures (+) MRSA in 3/4. Left knee culture (+) MRSA and L ankle culture, hip cultures (+) Staph spp. 2 and 07/08 repeat blood cultures (+) MRSA in /. Renal function stable. ceftriaxone discontinued, continues on vancomycin. ID consulted. Plan * Vancomycin trough level (~11.5hr level) this morning 21.7 mg/L- supratherapeutic. * Decrease vancomycin to 1250mg IV q12h due to demonstrated accumulation * Repeat level 214 AM Pharmacy will continue to follow and will adjust dose/frequency as necessary. Thank you. Pharmacy has transitioned to AUC monitoring for vancomycin. AUC/SAMMI is the preferred PK/PD target and is associated with decreased risk of nephrotoxicity compared to traditional trough targets.
[2022-07-11] MEDS ORDERED: POTASSIUM CHLORIDE CRTAB 20 MEQ TABCR PO STA (09:49)
--- NOTE | 2022-07-11 17:17 | Hospitalist Progress Note ---
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 Left Knee MRSA Septic Arthritis Stage 4 Left ankle ulcer Stage 4 left buttock ulcer MRSA Bacteremia -History of MSSA Aortic valve endocarditis, previously on daptomycin then finished 6 week course with cefazolin. History of MRSA growth on sacral wound and left ankle ulcer -was on ceftriaxone and vancomycin. Ceftriaxone discontinued -ID consult on board -OR 07/04 left knee: washout, drain placed -OR 07/06 left ankle: washout and debridement, left distal fibula biopsy, drain placed - Blood cx on 07/03, culture from the L knee and L ankle positive for MRSA - Left decubitus wound grew staph species -TTE results noted, aortic valve not well visualized. -Repeat blood cx on 07/05 positive for gram positive cocci clusters - MRSA - Blood culture (3rd set) on 07/08 grew gram positive cocci in clusters -ID on board recommended 6 weeks of IV abx with Vanco - ID was notified about the positive blood cx - repeat blood cx collected on 07/10 - no growth so far -Since blood culture remain positive, will need to consider JILLIAN; but She said that she would not get any JILLIAN -Cardiology consulted to eval for JILLIAN - Plan for possible Tuesday or Tuesday if pt agrees to proceed with JILLIAN -Once blood cx negative, will place PICC prior discharge -Will need to check CBC, BMP and Vanco trough ( 15 - 20) weekly while on IV Vanco -Intervention cardiology on board for evaluation forleft lower extremity angiogram and possible endovascular intervention -Arterial perfusion should be adequate to heal surgical wounds. 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 CXR negative for pulmonary edema. BNP mildly elevated (better than her baseline) Continue lasix 20mg PO daily, Metoprolol 25mg BID, spironolactone 50mg daily with hold parameters IDDM -HA1c 10.5% -Lantus 20 units daily--continue, Metformin 500mg BID--will hold -correctional scale insulin, lantus 10 units daily (lantus dose reduced due to intermittently being NPO for surgery, can up titrate her insulin once no further plans for surgery) DVT ppx On Lovenox BID as per Ortho Admission and Anticipated Discharge Date Admission Date: July 03, 2022 Subjective Pt was seen and examined for follow up of bacteremia, L knee and L ankle wound infected Lying in bed with no acute distresswith at bedside She said that she did not sleep well today She said that staff was not to friendly with her today She asking for a bedside commode since she is not able to walk to the bathroom Denies any chest pain, palpitation, dizziness and SOB Review of Systems Review of Systems: All systems reviewed & are unremarkable except as noted in Subjective Physical Exam Physical Exam: General- No acute distress Head- atraumatic Eyes- PERRL, EOMI, ENT- oropharynx clear Neck- supple, no JVD Lungs- clear to auscultation Heart- regular rhythm; +systolic murmur Abdomen- normal bowel sounds, soft, nontender Extremities- no calf tenderness, Left knee suture/surgical area with no drainage or erythema =, +Swelling in knee and ankle Neuro- alert, oriented x 3; PERRL, EOMI; no facial palsy; no dysarthria Skin- warm & dry Results & Data Results & Data ([facility]) Vital Signs (Past 12 Hours) Vital Signs Temp Pulse Resp BP Pulse Ox O2 Del Method 07/11/22 16:37 36.5 C 88 18 149/73 H 95 Room Air 07/11/22 11:40 36.6 C 72 17 122/64 94 Room Air 07/11/22 07:35 36.9 C 88 19 134/67 93 Room Air
[2022-07-11] MEDS: SENNA 8.6 MG TAB PO SCH (20:43)
[2022-07-11] MEDS: LANTUS PER UNIT CHARGE SQ SCH (20:43)
[2022-07-11] MEDS: MELATONIN 3 MG TAB PO SCH (20:50)
[2022-07-11] MEDS: VANCOMYCIN HCL 1,250 MG in SODIUM CHLORIDE 0.9% 250 ML IV SCH (20:50)
[2022-07-12] MEDS: HYDROCODONE/ACETAMOPHEN 5/325MG TAB PO PRN (01:46)
[2022-07-12] MEDS: INSULIN ASPART PER UNIT SC SCH ×4 (07:08→20:36)
[2022-07-12 07:25] LABS: Creatinine Clr Calc Pharmacy 127.6 ml/min; Est GFR (African American) 116.5 ml/min; Est GFR (Non-African American) 100.5 ml/min
[2022-07-12] MEDS: DOCUSATE SODIUM 100 MG CAP PO SCH ×2 (08:17→20:09)
[2022-07-12] MEDS: POLYETHYLENE (MIRALAX) 17 GM PACK PO SCH (08:17)
[2022-07-12] MEDS: FUROSEMIDE 20 MG TAB PO SCH (08:18)
[2022-07-12] MEDS: METOPROLOL TARTRATE 25 MG TAB PO SCH ×2 (08:18→20:42)
[2022-07-12] MEDS: MULTIVITAMIN TAB PO SCH (08:19)
[2022-07-12] MEDS: SPIRONOLACTONE 25 MG TAB PO SCH (08:20)
[2022-07-12] MEDS: SACCHAROMYCES BOULARDII 250 MG CAP PO SCH (08:21)
[2022-07-12] MEDS: VANCOMYCIN HCL 1,250 MG in SODIUM CHLORIDE 0.9% 250 ML IV SCH ×2 (08:26→21:03)
[2022-07-12 08:32] LABS: Magnesium 1.6 mg/dl (1.7-2.4); Potassium 3.4 mmol/L (3.5-5.1)
--- NOTE | 2022-07-12 10:04 | Progress Notes ---
DATE OF SERVICE: 07/12/2022 SUBJECTIVE: Phyllis is resting comfortably in bed. She has gotten up out of bed to some extent. Her knee feels better, but is still stiff and sore. Her knee incisions are benign with a little bit of erythema inferior lateral, probably due to suture irritation; there is no drainage, and she has no intraarticular effusion. Her knee motion is 0/10 to about 30 degrees of flexion. She is able to do a straight leg raise. She has good ankle range of motion. The medial incision is benign. The lateral wound is looking very good. It is almost closed out to the skin. There is no drainage or erythema. Good granulating tissue and the best healing that she has had in several months. Redressed. Her fibula biopsy shows no evidence of osteomyelitis. The fibula culture likewise shows no evidence of infection. IMPRESSION: Septic arthritis of the left knee and left ankle with a healing left lateral ankle wound. PLAN: She may be up weightbearing as tolerated with assistance and a walker. She can be out of bed to chair with assistance. I have recommended that she work on her ankle and knee range of motion as well as leg lifts. She does not need a knee brace. PT and OT. Lovenox for DVT prophylaxis. At this time, I think we should see how she does with the knee and ankle on IV antibiotics. We can see how the wound does. If she develops a chronic deep infection or osteomyelitis of her ankle or has further problems with the ankle wound, we may need to get her to see a foot and ankle specialist. For the time being, we will continue to follow her here.. Job ID: [id number] [facility] CENTERPaige
[2022-07-12] MEDS ORDERED: BENZOCAINE/TETRACAIN/BUTAM 50 APPLN/5 GM CAN EXT ONE (10:31)
--- NOTE | 2022-07-12 10:32 | Anesthesiology Consultation ---
Date of Service July 12, 2022 Assessment & Plan ASA ASA3 Proposed Anesthesia Anesthesia Type: MAC Risk / Benefits Reviewed With: PT / POA / Parent / Guardian, Accepts Plan and Informed Consent Obtained History Surgery Operation Date: 07/04/22 08:00 Proposed Procedures p Arthroscopy Knee Meniscal Repair(Left) - Moises Brooks MD Operation Date: 07/06/22 13:40 Proposed Procedures p Left Ankle Arthrotomy Irrigation and Debridement - Moises Brooks MD Operation Date: 07/09/22 07:15 Proposed Procedures p Angio Extremity Unilateral - Hiren Fields MD Operation Date: 07/12/22 10:00 Proposed Procedures p Transesophageal Echo w/Anesthesia - Nima Santana MD Height/Weight Height: 5 ft 3 in Weight: 111.9 kg Allergies Allergy/AdvReac Type Severity Reaction Status Date / Time No Known Allergies Allergy Verified 07/03/22 01:35 Medications Home Medications Medication Instructions Recorded Confirmed Last Taken blood sugar diagnostic (OneTouch #50 ea 04/14/22 04/19/22 Unknown Ultra Test strips) blood-glucose meter (OneTouch #1 ea 04/14/22 04/19/22 Unknown Ultra2 Meter) lancets 33 gauge (OneTouch Delica #100 ea 04/14/22 04/19/22 Unknown Lancets) acetaminophen 325 mg capsule 325 mg PO Q6H PRN fever or pain 05/12/22 07/03/22 Unknown (Tylenol) #30 caps furosemide 20 mg tablet (Lasix) 20 mg PO DAILY #30 tabs 05/12/22 07/03/22 07/02/22 metoprolol tartrate 25 mg tablet 25 mg PO BID #60 tabs 05/12/22 07/03/22 07/02/22 polyethylene glycol 3350 17 17 g PO DAILY PRN constipation 05/12/22 07/03/22 Unknown gram/dose oral powder (Miralax) #119 grams potassium chloride 20 mEq 20 meq PO QAM #30 tabs 05/12/22 07/03/22 07/02/22 tablet,extended release(part/cryst) spironolactone 50 mg tablet 50 mg PO DAILY #30 tabs 05/12/22 07/03/22 07/02/22 insulin glargine 100 unit/mL (3 20 unit subcut PM 07/03/22 07/03/22 07/02/22 mL) subcutaneous pen loperamide 2 mg tablet 2 mg PO DIRECTED PRN Diarrhea 07/03/22 07/03/22 Unknown melatonin 5 mg tablet 5 mg PO HS 07/03/22 07/03/22 07/02/22 metformin 500 mg tablet,extended 500 mg PO BIDM 07/03/22 07/03/22 07/02/22 release 24 hr multivitamin 1 tab PO DAILY 07/03/22 07/03/22 07/02/22 nystatin 100,000 unit/gram topical 1 applic topical BID PRN Rash 07/03/22 07/03/22 Unknown powder Active Medications Generic Name Dose Route Start Last Admin Trade Name Freq PRN Reason Stop Dose Admin Acetaminophen 325 mg 07/03/22 15:29 07/11/22 08:54 Acetaminophen 325 Mg Tab PO 325 mg Q6H PRN Administration fever or pain Hydrocodone Bitart/Acetaminophen 1 - 2 tab 07/06/22 17:56 07/12/22 01:46 Hydrocodone/Acetamophen 5/325mg Tab PO 07/20/22 17:55 2 tab Q4H PRN Administration Pain or Pre PT Docusate Sodium 100 mg 07/05/22 09:00 07/12/22 08:17 Docusate Sodium 100 Mg Cap PO 08/04/22 08:59 Not Given BID [facility] Enoxaparin Sodium 30 mg 07/07/22 09:00 07/11/22 20:44 Enoxaparin Inj 30 Mg/0.3 Ml Syr SQ 08/06/22 08:59 30 mg Q12H ERAN Administration Furosemide 20 mg 07/03/22 15:29 07/12/22 08:18 Furosemide 20 Mg Tab PO 08/02/22 15:28 20 mg DAILY ERAN Administration Hydromorphone HCl 0.5 mg 07/06/22 17:56 07/09/22 11:18 Hydromorphone Inj 0.5 Mg/0.5 Ml Syr IV 07/20/22 17:55 0.5 mg Q4H PRN Administration Pain or Pre PT Vancomycin HCl 1,250 mg/ 275 mls @ 200 mls/hr 07/11/22 21:00 07/12/22 09:41 Sodium Chloride IV 08/22/22 20:59 Infused Q12H [facility] Infusion Protocol Insulin Aspart 0 units 07/03/22 16:30 07/12/22 07:08 Insulin Aspart Per Unit SC 08/02/22 16:29 Not Given ACHS [facility] Insulin Glargine 10 units 07/03/22 21:00 07/11/22 20:43 Lantus Per Unit Charge SQ 08/02/22 20:59 10 units PM ERAN Administration Loperamide HCl 2 mg 07/10/22 18:54 07/11/22 16:51 Loperamide Hcl 2 Mg Cap PO 08/09/22 18:53 2 mg Q8H PRN Administration Diarrhea Melatonin 6 mg 07/03/22 22:00 07/11/22 20:50 Melatonin 3 Mg Tab PO 08/02/22 21:59 6 mg HSZ ERAN Administration Metoprolol Tartrate 25 mg 07/03/22 21:00 07/12/22 08:18 Metoprolol Tartrate 25 Mg Tab PO 08/02/22 20:59 25 mg BID ERAN Administration Multivitamins 1 tab 07/04/22 09:00 07/12/22 08:19 Multivitamin Tab PO 08/03/22 08:59 1 tab DAILY ERAN Administration Nystatin 1 appln 07/03/22 15:29 07/05/22 14:20 Nystatin Powder 15gm Btl EXT 08/02/22 15:28 1 appln BID PRN Administration Rash Ondansetron HCl 4 mg 07/04/22 12:34 07/04/22 12:38 Ondansetron Inj 2 Mg/Ml 2 Ml Vial IV 08/03/22 12:33 4 mg Q6H PRN Administration Nausea And Vomiting Polyethylene Glycol 17 gm 07/04/22 09:00 07/12/22 08:17 Polyethylene (Miralax) 17 Gm Pack PO 08/03/22 08:59 Not Given DAILY ERAN Saccharomyces Boulardii 250 mg 07/04/22 09:00 07/12/22 08:21 Saccharomyces Boulardii 250 Mg Cap PO 08/03/22 08:59 250 mg DAILY ERAN Administration Sennosides 17.2 mg 07/04/22 21:00 07/11/22 20:43 Senna 8.6 Mg Tab PO 08/03/22 20:59 Not Given HS ERAN Spironolactone 50 mg 07/03/22 15:29 07/12/22 08:20 Spironolactone 25 Mg Tab PO 08/02/22 15:28 50 mg DAILY ERAN Administration Tramadol HCl 50 mg 07/03/22 16:08 07/11/22 16:51 Tramadol Hcl 50 Mg Tablet PO 08/02/22 16:07 50 mg Q4H PRN Administration Pain NPO Date Last Intake of Fluids: 07/05/22 Time Last Intake of Fluids: 22:00 Last Intake of Fluids Comment: Midnight Date Last Intake of Solids: 07/05/22 Time Last Intake of Solids: 22:00 Last Intake of Solids Comment: Midnight Past Medical History Medical History Acute metabolic encephalopathy Ambulatory dysfunction Aortic stenosis FRIDA 1.1cm2 04/04/22 Chronic diastolic CHF (congestive heart failure) Cirrhosis Dilated cardiomyopathy Generalized weakness Mitral regurgitation MSSA bacteremia Obesity Peripheral arterial disease Pressure ulcers of skin of multiple topographic sites Type 2 diabetes mellitus Urinary retention Wound of left buttock Exercise / Class Metabolic Activity II 4-5 Yardwork/Stairs/Walk up hill Past Family History Family History Other Family history non-contributory Past Surgical History Surgical History No significant past surgical history Past Anesthesia History No Hx of Anesthesia Complications and No Family Hx of Anesthesia Complications History of PONV No Hx of PONV and No Hx of Motion Sickness Social History Smoking Status: Never smoker Hx Alcohol Use: No Hx Substance Use: No substance use type: does not use Review of Systems denies fever/cough/ colds/ chest pain/ SOB/ CONSUELO denies CONSUELO Physical Exam Vital Signs Last Vital Signs Temp 36.8 C 07/12/22 03:32 Pulse 85 07/12/22 09:59 Resp 18 07/12/22 09:59 BP 147/77 H 07/12/22 09:59 Pulse Ox 94 07/12/22 09:59 O2 Del Method 07/12/22 09:59 O2 Flow Rate 0 07/06/22 17:20 ENMT Mouth: no TMJ abnormality and no dentition abnormality Thyromental Distance: > or= 3.5 Finger Breadths Mallampati Class: II Neck neck extension not limited Respiratory normal respiratory effort; no respiratory distress Auscultation: lungs clear to auscultation bilaterally Cardiovascular Rate/Rhythm: regular rate and regular rhythm Neurologic moves all extremities Psychiatric Orientation: alert and oriented x 3 Testing Laboratory Results 07/11/22 08:14 07/12/22 06:21 PT 11.7 Seconds (9.0-12.0) 07/04/22 07:06 INR 1.1 (0.9-1.1) 07/04/22 07:06 Hemoglobin A1c 6.8 % (4.5-5.6) H 07/04/22 07:06 07/10/22 10:03 Aerobic Blood Culture - Preliminary Blood No growth in Aerobic bottle after 24 hours. Anaerobic Blood Culture - Preliminary No growth in Anaerobic bottle after 24 hours. 07/10/22 10:03 Aerobic Blood Culture - Preliminary Blood No growth in Aerobic bottle after 24 hours. Anaerobic Blood Culture - Preliminary No growth in Anaerobic bottle after 24 hours. 07/06/22 Unknown Gram Stain - Final Ankle,Left Aerobic and Anaerobic Culture - Final Staph aureus MRSA 07/08/22 06:10 Aerobic Blood Culture - Preliminary Blood Staph aureus MRSA Anaerobic Blood Culture - Preliminary No growth in Anaerobic bottle after 48 hours. 07/05/22 11:15 Gram Stain - Final Hip,Left Decubitus Aerobic and Anaerobic Culture - Final Staph aureus MRSA Finegoldia magna Anaerobic gram negative bacill 07/05/22 07:20 Aerobic Blood Culture - Final Blood No growth in Aerobic bottle after 5 days. Anaerobic Blood Culture - Final No growth in Anaerobic bottle after 5 days. 07/05/22 07:33 Aerobic Blood Culture - Preliminary Blood Staph aureus MRSA Anaerobic Blood Culture - Final No growth in Anaerobic bottle after 5 days. 07/08/22 06:03 Aerobic Blood Culture - Preliminary Blood No growth in Aerobic bottle after 48 hours. Anaerobic Blood Culture - Preliminary No growth in Anaerobic bottle after 48 hours. 07/03/22 10:51 Aerobic Blood Culture - Final Blood No growth in Aerobic bottle after 5 days. Anaerobic Blood Culture - Final Staph aureus MRSA 07/06/22 Unknown Gram Stain - Final Ankle Aerobic and Anaerobic Culture - Preliminary No growth to date. 07/04/22 Unknown Gram Stain - Final Knee,Left Aerobic and Anaerobic Culture - Final Staph aureus MRSA 07/04/22 Unknown Gram Stain - Final Ankle,Left Aerobic and Anaerobic Culture - Final Staph aureus MRSA 07/03/22 14:13 Gram Stain - Final Knee,Left Aerobic and Anaerobic Culture - Final Staph aureus MRSA 07/03/22 10:35 Aerobic Blood Culture - Final Blood Staph aureus MRSA Anaerobic Blood Culture - Final Staph aureus MRSA 07/12/22 05:48 POC Glucose 122 H Electrocardiogram Date: 04/19/22 Findings: + ST @ (102) ant and inf [place] - no significant change from prior Chest X-Ray Date: 07/03/22 Findings: + cardiomegaly Echocardiogram Date: 04/05/22 EF: 50-55% Valvular Disease: + (1.1cm2 with peak grad 37mmHg)
--- NOTE | 2022-07-12 10:55 | Communication Note ---
Date of Service: July 12, 2022 Transesophageal echocardiogram performed without difficulty. Patient tolerated well Formal report to follow No evidence of endocarditis, vegetation or abscess visualized Aortic valve calcification with mild restriction in leaflet mobility
[2022-07-12] MEDS ORDERED: LIDOCAINE 2% MPF LOCAL 5 ML VIAL INFIL ONE (10:57)
[2022-07-12] MEDS ORDERED: PROPOFOL IV EMULSION 10 MG/ML 20 ML VIAL IV ONE (10:57)
[2022-07-12] MEDS ORDERED: PHENYLEPHRINE HCL 10 MG/ML VIAL ONE (10:57)
[2022-07-12] MEDS: ENOXAPARIN INJ 30 MG/0.3 ML SYR SQ SCH ×2 (12:10→20:41)
--- NOTE | 2022-07-12 12:13 | Anesthesiology Progress Note ---
Date of Service July 12, 2022 Anesthesia Post Procedure Vital Signs Vital Signs: Temp Pulse Pulse Resp BP Pulse Ox O2 Del Method 07/12/22 11:24 36.8 C 86 19 134/73 95 Room Air 07/12/22 11:10 82 18 100/58 L 94 Room Air 07/12/22 10:55 77 18 105/61 95 Room Air 07/12/22 09:59 85 18 147/77 H 94 Room Air 07/12/22 03:32 36.8 C 81 18 126/76 94 Room Air 07/11/22 23:00 77 07/11/22 22:34 36.7 C 79 18 125/72 96 Room Air 07/11/22 20:00 Room Air 07/11/22 19:24 36.6 C 94 H 18 164/80 H 95 Room Air 07/11/22 16:37 36.5 C 88 18 149/73 H 95 Room Air Pain Intensity Left Leg: Pain Intensity: 8 Left Knee: Pain Intensity: 4 Transfer of Care Handoff Completed per policy Notes Mental Status: alert / awake / arousable and participated in evaluation Patient Amnestic to Procedure: Yes Nausea / Vomiting: adequately controlled Pain: adequately controlled Airway Patency, RR, SpO2: stable & adequate BP & HR: stable & adequate Hydration State: stable & adequate Anesthetic Complications: no major complications apparent and Pt Satisfied with anesthetic care
[2022-07-12] MEDS: HYDROmorphone INJ 0.5 MG/0.5 ML SYR IV PRN (14:20)
--- NOTE | 2022-07-12 15:30 | Hospitalist Progress Note ---
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 Left Knee MRSA Septic Arthritis Stage 4 Left ankle ulcer Stage 4 left buttock ulcer MRSA Bacteremia -History of MSSA Aortic valve endocarditis, previously on daptomycin then finished 6 week course with cefazolin. History of MRSA growth on sacral wound and left ankle ulcer -was on ceftriaxone and vancomycin. Ceftriaxone discontinued -ID consult on board -OR 07/04 left knee: washout, drain placed -OR 07/06 left ankle: washout and debridement, left distal fibula biopsy, drain placed - Blood cx on 07/03, culture from the L knee and L ankle positive for MRSA - Left decubitus wound grew staph species -TTE results noted, aortic valve not well visualized. -Repeat blood cx on 07/05 positive for gram positive cocci clusters - MRSA - Blood culture (3rd set) on 07/08 grew gram positive cocci in clusters -ID on board recommended 6 weeks of IV abx with Vanco - ID was notified about the positive blood cx - repeat blood cx collected on 07/10 - no growth so far -Since blood culture remain positive, will need to consider JILLIAN; but She said that she would not get any JILLIAN -Cardiology consulted to eval for JILLIAN - Plan for possible Tuesday or Tuesday if pt agrees to proceed with JILLIAN -Once blood cx negative, will place PICC prior discharge -Will need to check CBC, BMP and Vanco trough ( 15 - 20) weekly while on IV Vanco -Intervention cardiology on board for evaluation forleft lower extremity angiogram and possible endovascular intervention -Arterial perfusion should be adequate to heal surgical wounds. No need for intervention on chronically occluded [employer] as per interventional cardiology -Continue monitor closely -Case discussed with cardiology - JILLIAN performed today with no evidence of vegetation or endocarditis -Left hip decubitus cx on 07/05 came back today positive for anaerobic gram negative bacilli ( non viable identification) -ID was notified about the cx result and JILLAIN - No need to cover for the anaerobe- will need to complete 6 weeks of IV abx ( start from 07/10 to 08/20) Chronic diastolic CHF Aortic Stenosis Histor of Aortic Valve MSSA endocarditis Difficult to assess fluid status on exam. CXR negative for pulmonary edema. BNP mildly elevated (better than her baseline) Continue lasix 20mg PO daily, Metoprolol 25mg BID, spironolactone 50mg daily with hold parameters IDDM -HA1c 10.5% -Lantus 20 units daily--continue, Metformin 500mg BID--will hold -correctional scale insulin, lantus 10 units daily (lantus dose reduced due to intermittently being NPO for surgery, can up titrate her insulin once no further plans for surgery) DVT ppx On Lovenox BID as per Ortho CODE status Full code Admission and Anticipated Discharge Date Admission Date: July 03, 2022 Subjective Pt was seen and examined for follow up of bacteremia, L knee and L ankle wound infected Lying in bed with no acute distress She agreed to proceed to JILLIAN this morning Denies any chest pain, palpitation, dizziness and SOB Review of Systems Review of Systems: All systems reviewed & are unremarkable except as noted in Subjective Physical Exam Physical Exam: General- No acute distress Head- atraumatic Eyes- PERRL, EOMI, ENT- oropharynx clear Neck- supple, no JVD Lungs- clear to auscultation Heart- regular rhythm; +systolic murmur Abdomen- normal bowel sounds, soft, nontender Extremities- no calf tenderness, Left knee suture/surgical area with no drainage or erythema =, +Swelling in knee and ankle Neuro- alert, oriented x 3; PERRL, EOMI; no facial palsy; no dysarthria Skin- warm & dry Results & Data Results & Data ([facility]) Vital Signs (Past 12 Hours) Vital Signs Temp Pulse Pulse Resp BP Pulse Ox O2 Del Method 07/12/22 12:19 77 07/12/22 08:00 77 07/12/22 11:24 36.8 C 86 19 134/73 95 Room Air 07/12/22 11:10 82 18 100/58 L 94 Room Air 07/12/22 10:55 77 18 105/61 95 Room Air 07/12/22 09:59 85 18 147/77 H 94 Room Air 07/12/22 03:32 36.8 C 81 18 126/76 94 Room Air
[2022-07-12] MEDS ORDERED: MAGNESIUM SULFATE / D5W 1 GM/100 ML BAG IV ONE (15:44)
[2022-07-12] MEDS ORDERED: POTASSIUM CHLORIDE 10 MEQ TABCR PO STA (15:44)
[2022-07-12] MEDS: LOPERAMIDE HCL 2 MG CAP PO PRN (16:54)
[2022-07-12] MEDS: SENNA 8.6 MG TAB PO SCH (20:09)
[2022-07-12] MEDS: LANTUS PER UNIT CHARGE SQ SCH (20:36)
[2022-07-12] MEDS: MELATONIN 3 MG TAB PO SCH (20:42)
[2022-07-13] MEDS: ACETAMINOPHEN 325 MG TAB PO PRN ×2 (04:34→08:35)
[2022-07-13] MEDS: ONDANSETRON INJ 2 MG/ML 2 ML VIAL IV PRN (04:35)
[2022-07-13] MEDS ORDERED: VANCOMYCIN LEVEL ONE (08:00)
[2022-07-13] MEDS: DOCUSATE SODIUM 100 MG CAP PO SCH ×2 (08:24→20:12)
[2022-07-13] MEDS: MULTIVITAMIN TAB PO SCH (08:25)
[2022-07-13] MEDS: SPIRONOLACTONE 25 MG TAB PO SCH (08:25)
[2022-07-13] MEDS: METOPROLOL TARTRATE 25 MG TAB PO SCH ×2 (08:25→20:22)
[2022-07-13] MEDS: POLYETHYLENE (MIRALAX) 17 GM PACK PO SCH (08:26)
[2022-07-13] MEDS: SACCHAROMYCES BOULARDII 250 MG CAP PO SCH (08:26)
[2022-07-13] MEDS: INSULIN ASPART PER UNIT SC SCH ×4 (08:34→20:26)
[2022-07-13] MEDS: ENOXAPARIN INJ 30 MG/0.3 ML SYR SQ SCH ×2 (08:36→20:13)
[2022-07-13] MEDS: FUROSEMIDE 20 MG TAB PO SCH (08:36)
[2022-07-13 09:41] LABS: Hematocrit (blood only) 25.6 % (37.0-47.0); Hemoglobin 8.7 g/dl (12.0-16.0); Mean Corpuscular Hemoglobin 30.5 pg (25.0-34.0); Mean Corpuscular Volume 89.8 fL (80.0-100.0); Platelet Count 332 K/uL (130-400); RDW Coefficient of Variation 13.7 % (11.5-14.5); RDW Standard Deviation 44.9 fL (36.4-46.3); Red Blood Count 2.85 M/uL (4.20-5.40); White Blood Count 9.16 K/ul (4.8-10.8)
[2022-07-13 09:58] LABS: BUN Creatinine Ratio 27.3 (10-20); Calcium 8.3 mg/dl (8.5-10.1); Creatinine Clr Calc Pharmacy 102.7 ml/min; Est GFR (African American) 109.7 ml/min; Est GFR (Non-African American) 94.7 ml/min; Magnesium 1.8 mg/dl (1.7-2.4); Potassium 3.6 mmol/L (3.5-5.1)
[2022-07-13] MEDS: VANCOMYCIN HCL 1,250 MG in SODIUM CHLORIDE 0.9% 250 ML IV SCH ×2 (11:06→22:24)
[2022-07-13] MEDS: HYDROCODONE/ACETAMOPHEN 5/325MG TAB PO PRN (11:11)
--- NOTE | 2022-07-13 13:52 | Pharmacy Report ---
Pharmacy PK ABX Note - Date of Service July 13, 2022 - Assessment and Plan Assessment 62 year old F receiving vancomycin for treatment of bacteremia and septic arthritis of knee and ankle. 2/ blood cultures (+) MRSA in 3/. Left knee culture (+) MRSA and L ankle culture, L hip cultures (+) MRSA, Finegoldia magna, and anaerobic gram-negative bacilli. Vancomycin will cover MRSA and Finegoldia. ID not recommending to treat the anaerobic organism per hospitalist note on 06/30 08/19. 07/05 and 07/08 repeat blood cultures (+) MRSA in 06/02. Renal function stable. ceftriaxone discontinued, continues on vancomycin. ID consulted. Plan Vancomycin * Current regimen: 1250 mg IV every 12 hours * Trough level obtained 07/13/22 resulted as 17.3 mcg/mL. This is predicted to achieve target AUC/SAMMI of 400-600 mg/L.hr * Predicted AUC at steady state is predicted to be > 600, however given MRSA bacteremia and ID recommendation for extended duration with target trough of 15-20. Will continue with current regimen of 1250 mg IV q12h. * Will repeat level in the next 48-72 hours if therapy is continued and/or change in patient clinical status Pharmacy will continue to follow and will adjust dose/frequency as necessary. Thank you. Pharmacy has transitioned to AUC monitoring for vancomycin. AUC/SAMMI is the preferred PK/PD target and is associated with decreased risk of nephrotoxicity compared to traditional trough targets.
[2022-07-13] MEDS: traMADol HCL 50 MG TABLET PO PRN ×2 (17:19→21:16)
--- NOTE | 2022-07-13 17:38 | Hospitalist Progress Note ---
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 Left Knee MRSA Septic Arthritis Stage 4 Left ankle ulcer Stage 4 left buttock ulcer MRSA Bacteremia -History of MSSA Aortic valve endocarditis, previously on daptomycin then finished 6 week course with cefazolin. History of MRSA growth on sacral wound and left ankle ulcer -was on ceftriaxone and vancomycin. Ceftriaxone discontinued -ID consult on board -OR 07/04 left knee: washout, drain placed -OR 07/06 left ankle: washout and debridement, left distal fibula biopsy, drain placed - Blood cx on 07/03, culture from the L knee and L ankle positive for MRSA - Left decubitus wound grew staph species -TTE results noted, aortic valve not well visualized. -Repeat blood cx on 07/05 positive for gram positive cocci clusters - MRSA - Blood culture (3rd set) on 07/08 grew gram positive cocci in clusters -ID on board recommended 6 weeks of IV abx with Vanco - ID was notified about the positive blood cx - repeat blood cx collected on 07/10 - no growth so far -Since blood culture remain positive, will need to consider JILLIAN; but She said that she would not get any JILLIAN -Cardiology consulted to eval for JILLIAN - Plan for possible Tuesday or Tuesday if pt agrees to proceed with JILLIAN -Once blood cx negative, will place PICC prior discharge -Will need to check CBC, BMP and Vanco trough ( 15 - 20) weekly while on IV Vanco -Intervention cardiology on board for evaluation forleft lower extremity angiogram and possible endovascular intervention -Arterial perfusion should be adequate to heal surgical wounds. No need for intervention on chronically occluded [employer] as per interventional cardiology -Continue monitor closely -Case discussed with cardiology - JILLIAN performed today with no evidence of vegetation or endocarditis -Left hip decubitus cx on 07/05 came back today positive for anaerobic gram negative bacilli ( non viable identification) -ID was notified about the cx result and JILLIAN - No need to cover for the anaerobe- will need to complete 6 weeks of IV abx ( start from 07/10 to 08/20) if cx remains negative -Consent for picc line signed. will consider to put PICC line if blood cx remain negative tomorrow - Script printed for IV Vanco Chronic diastolic CHF Aortic Stenosis Histor of Aortic Valve MSSA endocarditis Difficult to assess fluid status on exam. CXR negative for pulmonary edema. BNP mildly elevated (better than her baseline) Continue lasix 20mg PO daily, Metoprolol 25mg BID, spironolactone 50mg daily with hold parameters IDDM -HA1c 10.5% -Lantus 20 units daily--continue, Metformin 500mg BID--will hold -correctional scale insulin, lantus 10 units daily (lantus dose reduced due to intermittently being NPO for surgery, can up titrate her insulin once no further plans for surgery) DVT ppx On Lovenox BID as per Ortho CODE status Full code Disposition Plan to go to [facility] once blood cx negative and picc line place Admission and Anticipated Discharge Date Admission Date: July 03, 2022 Subjective Pt was seen and examined for follow up of bacteremia, L knee and L ankle wound infected Lying in bed with no acute distress She was able to participate to therapy today She agreed to go to [facility] Consent for PICC line signed today and will consider to put PICC line if blood cx remain negative tomorrow Denies any chest pain, palpitation, dizziness and SOB Review of Systems Review of Systems: All systems reviewed & are unremarkable except as noted in Subjective Physical Exam Physical Exam: General- No acute distress Head- atraumatic Eyes- PERRL, EOMI, ENT- oropharynx clear Neck- supple, no JVD Lungs- clear to auscultation Heart- regular rhythm; +systolic murmur Abdomen- normal bowel sounds, soft, nontender Extremities- no calf tenderness, Left knee suture/surgical area with no drainage or erythema =, +Swelling in knee and ankle Neuro- alert, oriented x 3; PERRL, EOMI; no facial palsy; no dysarthria Skin- warm & dry Results & Data Results & Data ([facility]) Vital Signs (Past 12 Hours) Vital Signs Temp Pulse Resp BP Pulse Ox O2 Del Method 07/13/22 16:09 36.5 C 84 18 145/78 H 94 Room Air 07/13/22 11:54 36.6 C 77 18 123/71 97 Room Air 07/13/22 07:50 36.6 C 83 19 135/72 94 Room Air
[2022-07-13] MEDS: SENNA 8.6 MG TAB PO SCH (20:12)
[2022-07-13] MEDS: LANTUS PER UNIT CHARGE SQ SCH (20:27)
[2022-07-13] MEDS: MELATONIN 3 MG TAB PO SCH (22:27)
[2022-07-14] MEDS: HYDROCODONE/ACETAMOPHEN 5/325MG TAB PO PRN ×3 (00:14→17:23)
[2022-07-14 06:13] LABS: Hematocrit (blood only) 24.6 % (37.0-47.0); Hemoglobin 8.3 g/dl (12.0-16.0); Mean Corpuscular Hemoglobin 30.3 pg (25.0-34.0); Mean Corpuscular Hgb Conc 33.7 g/dL (32.0-36.0); Mean Corpuscular Volume 89.8 fL (80.0-100.0); Mean Platelet Volume 8.9 fL (9.4-12.4); Platelet Count 322 K/uL (130-400); RDW Coefficient of Variation 13.6 % (11.5-14.5); RDW Standard Deviation 44.2 fL (36.4-46.3); Red Blood Count 2.74 M/uL (4.20-5.40); White Blood Count 9.79 K/ul (4.8-10.8)
[2022-07-14 08:16] LABS: BUN Creatinine Ratio 33.3 (10-20); Calcium 8.2 mg/dl (8.5-10.1); Creatinine Clr Calc Pharmacy 103.5 ml/min; Est GFR (African American) 109.7 ml/min; Est GFR (Non-African American) 94.7 ml/min; Magnesium 1.9 mg/dl (1.7-2.4); Phosphorus 4.3 mg/dl (2.5-4.9); Potassium 3.5 mmol/L (3.5-5.1)
[2022-07-14] MEDS: SPIRONOLACTONE 25 MG TAB PO SCH (08:37)
[2022-07-14] MEDS: MULTIVITAMIN TAB PO SCH (08:38)
[2022-07-14] MEDS: SACCHAROMYCES BOULARDII 250 MG CAP PO SCH (08:38)
[2022-07-14] MEDS: METOPROLOL TARTRATE 25 MG TAB PO SCH ×2 (08:39→20:22)
[2022-07-14] MEDS: FUROSEMIDE 20 MG TAB PO SCH (08:39)
[2022-07-14] MEDS: POLYETHYLENE (MIRALAX) 17 GM PACK PO SCH (08:40)
[2022-07-14] MEDS: DOCUSATE SODIUM 100 MG CAP PO SCH ×2 (08:40→20:22)
[2022-07-14] MEDS: ENOXAPARIN INJ 30 MG/0.3 ML SYR SQ SCH ×2 (08:41→20:22)
[2022-07-14] MEDS: INSULIN ASPART PER UNIT SC SCH ×4 (08:57→20:47)
[2022-07-14] MEDS: VANCOMYCIN HCL 1,250 MG in SODIUM CHLORIDE 0.9% 250 ML IV SCH ×2 (10:43→22:30)
--- NOTE | 2022-07-14 14:39 | Hospitalist Progress Note ---
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 Left Knee MRSA Septic Arthritis Stage 4 Left ankle ulcer/Left Ankle Septic Arthritis Stage 4 left buttock ulcer MRSA Bacteremia -History of MSSA Aortic valve endocarditis, previously on daptomycin then finished 6 week course with cefazolin. History of MRSA growth on sacral wound and left ankle ulcer. -Initially placed on ceftriaxone and vanco. -ID consulted -OR 07/04 left knee: washout, drain placed -OR 07/06 left ankle: washout and debridement, left distal fibula biopsy, drain placed -Left knee and left ankle drains have been removed -07/02 Left Ankle Wound Culture - MRSA -2/ Blood Cultures - 3/4 bottles MRSA -/ Left Ankle Wound Culture - MRSA -/ Left Ankle and Knee Wound Cultures - MRSA -2/ Blood Cultures - 1/4 bottles MRSA -2/ Buttock Decub Culture - MRSA, few Finegoldia magna, few anaerobic gram negative bacilli -- per ID, do not need to cover for the anaerobe. -07/06 Left Ankle Wound Culture - MRSA -2/ Blood Cultures - 1/4 bottles MRSA -07/10 Blood Cultures - no growth to date -- awaiting final report -TTE results noted, aortic valve not well visualized. JILLIAN performed with no evidence of vegetation or endocarditis. -Interventional cardiology on board for evaluation forleft lower extremity angiogram and possible endovascular intervention - Arterial perfusion should be adequate to heal surgical wounds. 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 Once blood cultures negative, will place PICC line. -Will need to check CBC, BMP and Vanco trough (15 - 20) weekly while on IV Vanco Chronic diastolic CHF Aortic Stenosis Histor of Aortic Valve MSSA endocarditis -Appears euvolemic on exam -Continue Lasix 20mg PO daily, Metoprolol 25mg BID, spironolactone 50mg daily with hold parameters IDDM -HA1c 10.5% -Hold metformin while hospitalized -Lantus 20 units daily - home dose, now reduced to 10 units HS and utilizing Novolog -Blood sugars at goal DVT ppx On Lovenox BID as per Ortho CODE status Full code Disposition Plan to go to [facility] once blood cx negative and picc line placed Admission and Anticipated Discharge Date Admission Date: July 03, 2022 Supervising Physician Co-Signing Physician Notes Pt seen and examined by me, care coordinated w/ L. Katelyn YU, pls refer to her note above for further detail. Patient seen in follow-up of MRSA bacteremia, left knee and ankle septic arthritis. Currently doing well, lying in bed in no acute distress denies any fevers chills chest pain shortness of breath. Lungs are clear to auscultation. Heart sounds regular, positive murmur. Abdomen is obese soft nontender. Wound VAC applied to buttocks wound. Patient is moving extremities. Left knee with mild edema, no erythema noted, nontender. Patient is being followed by wound care. On IV vancomycin. Awaiting blood cultures to finalize from July 10. If these are negative, will place PICC line. Then plan to discharge to rehab. MD Dione Subjective Follow up for MRSA bacteremia, septic L knee and L ankle arthritis Patient seen and examined. Was able to stand at the side of the bed yesterday. Waiting for blood cultures to finalize. Patient reports feeling overall well. Offers no complaints. Denies chest pain and shortness of breath. No abdominal pain or nausea. Review of Systems Review of Systems: ROS per HPI, all other systems reviewed and negative Physical Exam Constitutional: WD/WN, vitals as above Respiratory: normal respiratory effort, lungs clear to auscultation Cardiovascular: Rate/Rhythm: regular rate and regular rhythm Heart Sounds: + murmur (grade 4/6 systolic) Vessels: normal peripheral pulses Extremities: no edema Gastrointestinal (Abdomen): Percussion/Palpation: abdomen soft; abdomen nontender Skin: no rashes, warm and dry left knee incisions healing well; dressing in place to left lateral ankle CDI; wound vac in place to buttock wound Neurologic: no focal motor deficits Psychiatric: A+Ox3, euthymic affect Results & Data Results & Data ([facility]) Vital Signs (Past 12 Hours) Vital Signs Temp Pulse Resp BP Pulse Ox O2 Del Method 07/14/22 08:37 85 136/76 07/14/22 07:50 36.6 C 80 18 117/70 94 Room Air Laboratory Results Short CBC 07/14/22 Range/Units 05:40 WBC 9.79 (4.8-10.8) K/ul Hgb 8.3 L (12.0-16.0) g/dl Hct 24.6 L (37.0-47.0) % Plt Count 322 (130-400) K/uL BMP 07/14/22 05:40 Sodium 136 Potassium 3.5 Chloride 102 Carbon Dioxide 29 BUN 22 Creatinine 0.66 Glucose 114 H Calcium 8.2 L
[2022-07-14] MEDS ORDERED: POTASSIUM CHLORIDE CRTAB 20 MEQ TABCR PO STA (18:25)
[2022-07-14] MEDS: traMADol HCL 50 MG TABLET PO PRN (20:21)
[2022-07-14] MEDS: SENNA 8.6 MG TAB PO SCH (20:23)
[2022-07-14] MEDS: LANTUS PER UNIT CHARGE SQ SCH (20:47)
[2022-07-14] MEDS: MELATONIN 3 MG TAB PO SCH (20:48)
[2022-07-15] MEDS: SACCHAROMYCES BOULARDII 250 MG CAP PO SCH (08:52)
[2022-07-15] MEDS: METOPROLOL TARTRATE 25 MG TAB PO SCH ×2 (08:52→20:35)
[2022-07-15] MEDS: SPIRONOLACTONE 25 MG TAB PO SCH (08:53)
[2022-07-15] MEDS: MULTIVITAMIN TAB PO SCH (08:54)
[2022-07-15] MEDS: DOCUSATE SODIUM 100 MG CAP PO SCH ×2 (08:59→20:33)
[2022-07-15] MEDS: ENOXAPARIN INJ 30 MG/0.3 ML SYR SQ SCH ×2 (09:00→20:28)
[2022-07-15] MEDS: POLYETHYLENE (MIRALAX) 17 GM PACK PO SCH (09:00)
[2022-07-15] MEDS: INSULIN ASPART PER UNIT SC SCH ×4 (09:03→20:42)
[2022-07-15 09:33] LABS: Hematocrit (blood only) 26.4 % (37.0-47.0); Hemoglobin 8.8 g/dl (12.0-16.0); Mean Corpuscular Hemoglobin 30.2 pg (25.0-34.0); Mean Corpuscular Hgb Conc 33.3 g/dL (32.0-36.0); Mean Corpuscular Volume 90.7 fL (80.0-100.0); Mean Platelet Volume 8.9 fL (9.4-12.4); Platelet Count 347 K/uL (130-400); RDW Coefficient of Variation 13.7 % (11.5-14.5); RDW Standard Deviation 44.8 fL (36.4-46.3); Red Blood Count 2.91 M/uL (4.20-5.40); White Blood Count 9.41 K/ul (4.8-10.8)
[2022-07-15 09:46] LABS: BUN Creatinine Ratio 33.3 (10-20); Calcium 8.4 mg/dl (8.5-10.1); Creatinine Clr Calc Pharmacy 102.1 ml/min; Est GFR (African American) 109.7 ml/min; Est GFR (Non-African American) 94.7 ml/min; Potassium 3.7 mmol/L (3.5-5.1)
[2022-07-15] MEDS: FUROSEMIDE 20 MG TAB PO SCH (09:58)
[2022-07-15] MEDS: VANCOMYCIN HCL 1,250 MG in SODIUM CHLORIDE 0.9% 250 ML IV SCH (10:21)
[2022-07-15] MEDS: HYDROCODONE/ACETAMOPHEN 5/325MG TAB PO PRN ×3 (10:54→23:06)
--- NOTE | 2022-07-15 11:05 | Pharmacy Report ---
Pharmacy PK ABX Note - Date of Service July 15, 2022 - Assessment and Plan Assessment 62 year old F receiving vancomycin for treatment of bacteremia and septic arthritis of knee and ankle. 2/ blood cultures (+) MRSA in /. Left knee culture (+) MRSA and L ankle culture, L hip cultures (+) MRSA, Finegoldia magna, and anaerobic gram-negative bacilli. Vancomycin will cover MRSA and Finegoldia. ID not recommending to treat the anaerobic organism per hospitalist note on 06/30 08/19. 07/05 and 07/08 repeat blood cultures (+) MRSA in 06/02. Renal function stable. ceftriaxone discontinued, continues on vancomycin. ID consulted. 07/15/22: Vancomycin treatment ongoing since 07/03/22. Today is day 13 of therapy. Plan is to continue for 6 weeks. Vancomycin 1250 mg IV q12h resulted in trough level of 22.1 today and AUC/SAMMI of 710 mg/L.hr. Plan Vancomycin * Since current regimen results in AUC/SAMMI greater than 700 mg/L/hr; Vancomycin dosing decreased to 1000 mg IV Q12h today. * AUC at steady state with new dose is predicted to be between 500-600 mg/L.hr. * Will re-check trough level on 07/17/22 Pharmacy will continue to follow and will adjust dose/frequency as necessary. Thank you. Pharmacy has transitioned to AUC monitoring for vancomycin. AUC/SAMMI is the preferred PK/PD target and is associated with decreased risk of nephrotoxicity compared to traditional trough targets.
[2022-07-15] MEDS ORDERED: VANCOMYCIN HCL 1,000 MG in SODIUM CHLORIDE 0.9% 250 ML IV ONE (14:00)
[2022-07-15] MEDS: traMADol HCL 50 MG TABLET PO PRN ×2 (14:40→20:27)
--- NOTE | 2022-07-15 15:56 | Orthopedic Progress Note ---
Date of Service July 15, 2022 Assessment & Plan (1) Septic arthritis of left ankle: Plan: POD 9 - s/p I&D left ankle, biopsy of left distal fibula WBAT PT/OT ROM as tolerated Biopsy results negative for osteomyelitis. Will leave sutures in place today and plan to remove sutures prior to discharge, either tomorrow if leaving Tuesday or over or Tuesday (if here thru weekend) Continue IV Vanco Continue Lovenox Dr. Brooks present for today's visit. Follow up with Dr. Brooks 2 weeks after discharge. Call [phone] if not already scheduled. (2) Septic arthritis of knee, left: Plan: POD 4 - s/p I&D left knee, arthritis left knee WBAT PT/OT ROM as tolerated Sutures removed, steri-strips applied left knee. Continue IV Vanco Continue Lovenox Dr. Brooks present for today's visit. Follow up with Dr. Brooks 2 weeks after discharge. Call [phone] if not already scheduled. (3) Pressure ulcer of left ankle, stage 4: Plan: Continue care by wound care nurse [facility] and aquacel AG in place. Wound significantly smaller. Follow up with Dr. Brooks 2 weeks after discharge. Call [phone] if not already scheduled. Admission and Anticipated Discharge Date Admission Date: July 03, 2022 Subjective Patient resting in bed, no issues with left ankle. States that it feels much better. Left knee still causing pain and limits her ability to move it and stand on it to walk. Otherwise feeling fine. Physical Exam Musculoskeletal: Left knee - no effusion. Limited ROM left knee limited from discomfort and stiffness. Unable to independently SLR her LLE. Able to actively bend left knee to 50 degrees and extend left leg and hold against resistance. Sutures left knee in place. Removed today, mild erythema from suspected inflammation around suture sites. No drainage. Sutures removed left knee, and steri-strips applied. Left ankle - no effusion, wound on left ankle almost completely healed, being managed by wound care nurse. Sutures left ankle clean, dry and intact. Erythema around sutures edges, but nontender, no active drainage. strength left ankle normal. No distal edema. Results & Data ([facility]) Vital Signs (Past 12 Hours) Vital Signs Temp Pulse Resp BP Pulse Ox O2 Del Method 07/15/22 07:52 36.7 C 86 18 136/69 95 Room Air
--- NOTE | 2022-07-15 17:01 | Hospitalist Progress Note ---
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 Left Knee MRSA Septic Arthritis Stage 4 Left ankle ulcer/Left Ankle Septic Arthritis Stage 4 left buttock ulcer MRSA Bacteremia -History of MSSA Aortic valve endocarditis, previously on daptomycin then finished 6 week course with cefazolin. History of MRSA growth on sacral wound and left ankle ulcer. -Initially placed on ceftriaxone and vanco. -ID consulted -OR 07/04 left knee: washout, drain placed -OR 07/06 left ankle: washout and debridement, left distal fibula biopsy, drain placed -Left knee and left ankle drains have been removed -07/02 Left Ankle Wound Culture - MRSA -2/ Blood Cultures - 3/4 bottles MRSA -/ Left Ankle Wound Culture - MRSA -/ Left Ankle and Knee Wound Cultures - MRSA -2/ Blood Cultures - 1/4 bottles MRSA -2/ Buttock Decub Culture - MRSA, few Finegoldia magna, few anaerobic gram negative bacilli -- per ID, do not need to cover for the anaerobe. -07/06 Left Ankle Wound Culture - MRSA -2/ Blood Cultures - 1/4 bottles MRSA -07/10 Blood Cultures - no growth to date -- awaiting final report -TTE results noted, aortic valve not well visualized. JILLIAN performed with no evidence of vegetation or endocarditis. -Interventional cardiology on board for evaluation forleft lower extremity angiogram and possible endovascular intervention - Arterial perfusion should be adequate to heal surgical wounds. 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 Once blood cultures negative, will place PICC line. -Will need to check CBC, BMP and Vanco trough (15 - 20) weekly while on IV Vanco -Per ortho, weight bearing as tolerated. Follow up with Dr. Brooks in 2 weeks Chronic diastolic CHF Aortic Stenosis Histor of Aortic Valve MSSA endocarditis -Appears euvolemic on exam -Continue Lasix 20mg PO daily, Metoprolol 25mg BID, spironolactone 50mg daily with hold parameters IDDM -HA1c 10.5% -Hold metformin while hospitalized -Lantus 20 units daily - home dose, now reduced to 10 units HS and utilizing Novolog -Blood sugars at goal DVT ppx On Lovenox BID as per Ortho CODE status Full code Disposition Will discuss benefit of SNF given patient remains a 2 max assist. Patient has previously refused option of SNF. [facility] a consideration. Is not safe to return home. A total of 35 minutes were spent with greater than 50% of that time face to face with the patient, personally reviewing all current laboratories, imaging studies, past medication reconciliation, outpatient chart review, and discussion with specialists to collaborate care for the patient with attending and utilization of translation services. Please see attending documentation for corrections and/or additions. Admission and Anticipated Discharge Date Admission Date: July 03, 2022 Supervising Physician Co-Signing Physician Notes Pt seen and examined by me, care coordinated w/Phoebe Ramirez PA-C, pls refer to her note above for further detail. Patient seen in follow-up of MRSA bacteremia, left knee and ankle septic arthritis. Currently doing well, lying in bed in no acute distress denies any fevers chills chest pain shortness of breath. Lungs are clear to auscultation. Heart sounds regular, positive murmur. Abdomen is obese soft nontender. Wound VAC applied to buttocks wound. Patient is moving extremities. Left knee with mild edema, no erythema noted, nontender. Patient is being followed by wound care and orthopedics. On IV vancomycin. Awaiting blood cultures to finalize from July 10. (Lab contacted) If these are negative, will place PICC line. Then plan to discharge to rehab/SNF. MD Dione Subjective Seen and examined in 322. Feeling okay today without any significant changes overnight. Still with some pain and swelling at surgical site of left knee. States she was able to get up with therapy but needed a lot of assistance and then had to sit back down. Denies any fever, chills, chest pain, shortness of breath, nausea, vomiting, abdominal pain, dysuria, diarrhea or constipation. Review of Systems Review of Systems: ROS per HPI, all other systems reviewed and negative Physical Exam Physical Exam: Gen: WD/WN, NAD,lying in bed, A&Ox3 HEENT: Normocephalic, atraumatic, conjunctivae moist, sclerae anicteric, mucous membranes moist Lung: Clear to Auscultation bilaterally, no wheezes/rales/rhonchi Heart: Regular rate, regular rhythm, no murmurs, rubs, or gallops Abdomen: Soft, NT, ND +BS x 4 Extremities: + L knee with healing incisions, sutures removed, mild edema. L ankle healing, suture area c/d/i Skin: Warm, no rash. + Wound vac to buttocks Results & Data Results & Data ([facility]) Vital Signs (Past 12 Hours) Vital Signs Temp Pulse Resp BP Pulse Ox O2 Del Method 07/15/22 15:54 36.8 C 84 18 134/74 94 Room Air 07/15/22 07:52 36.7 C 86 18 136/69 95 Room Air Laboratory Results Short CBC 07/15/22 Range/Units 09:12 WBC 9.41 (4.8-10.8) K/ul Hgb 8.8 L (12.0-16.0) g/dl Hct 26.4 L (37.0-47.0) % Plt Count 347 (130-400) K/uL BMP 07/15/22 09:12 Sodium 135 L Potassium 3.7 Chloride 100 Carbon Dioxide 29 BUN 22 Creatinine 0.66 Glucose 161 H Calcium 8.4 L Diagnostic Findings Knee X-Ray 07/03/22 01:54 XR knee LT 1 or 2V routine HISTORY: 62 years-old Female knee pain acute left knee pain COMPARISON: CT left knee of same day TECHNIQUE: 3 views of the left knee FINDINGS: Moderate medial with moderate to severe patellofemoral and severe medial compartment osteoarthritis no acute fracture, dislocation or osseous erosion. Demineralized appearance of the bones. [id number] joint effusion with Coulter's cyst. Arterial calcifications. IMPRESSION: 1. No acute fracture or dislocation. 2. Tricompartmental osteoarthritis, severe within the medial compartment. 3. Small to moderate joint effusion. ACT 112: Negative or not required by law. The above report was generated using voice recognition software. It may contain grammatical, syntax or spelling errors. Electronically signed by: Michael Rodriguez M.D. 07/03/2022 7:[address] 07/03/22 03:44 CT knee LT wo con HISTORY: 62 years-old Female incr pain/swelling acute pain and swelling of the left knee COMPARISON: CT left tibia and fibula radiographs 04/04/2022 TECHNIQUE: Multiple axial CT images of the left knee were obtained without the use of IV contrast. A dose lowering technique was used consistent with the principals of ALARA. FINDINGS: Tricompartmental osteoarthritis, severe within the medial compartment, moderate to severe within the patellofemoral joint and moderate within the lateral compartment.. Small to moderate joint effusion. 3.2 x 3.9 x 5.3 cm Coulter's cyst. Extensive arterial calcifications. Mild to moderate muscular atrophy. No acute fracture, dislocation or osseous erosion identified. IMPRESSION: 1. No acute fracture or dislocation. 2. Tricompartmental osteoarthritis of the knee redemonstrated, severe within the medial compartment. 3. Small to moderate joint effusion with Coulter's cyst. ACT 112: Negative or not required by law. The above report was generated using voice recognition software. It may contain grammatical, syntax or spelling errors. Electronically signed by: Michael Rodriguez M.D. 07/03/2022 7:21 AM Chest X-Ray 07/03/22 16:13 XR chest 1V portable HISTORY: 62 years-old Female pre-op preoperative exam. COMPARISON: Chest radiograph 04/20/2022 TECHNIQUE: AP view of the chest FINDINGS: Cardiac silhouette is enlarged. Mild ill-defined subsegmental right basilar densities. No pneumothorax, pleural effusion or overt pulmonary edema. Degenerative changes of the shoulders and spine. IMPRESSION: 1. Cardiomegaly without overt pulmonary edema. 2. Mild right basilar densities favoring atelectasis. A mild nonspecific pneu monitis could appear similarly. ACT 112: Negative or not required by law. The above report was generated using voice recognition software. It may contain grammatical, syntax or spelling errors. Electronically signed by: Michael Rodriguez M.D. 07/03/2022 4:35 PM Ankle MRI 07/03/22 17:05 MR ankle LT wo/w con HISTORY: 62 years-old Female evaluate for osteo chronic soft tissue ulcer of the lateral left ankle COMPARISON: Left ankle radiographs 06/18/2022 TECHNIQUE: Multiplanar multisequence MRI of the left ankle was obtained both with and without the use of 10 cc Gadavist FINDINGS: Motion degraded exam. Moderate marrow edema of the talus, anterior to mid calcaneus and distal fibula with mild to moderate marrow edema of the medial malleolus.There is mild cortical indistinctness of the distal fibula. Small tibiotalar and subtalar joint effusions. Atrophy of the intrinsic musculature with intramuscular edema and mild enhancement. There is a cutaneous ulcer of the lateral ankle with skin thickening, subcutaneous and deep tissue edema and enhancement. Peripheral enhancement within the posterior joint recess measuring up to 9 mm on image 21 series 11 and 8 mm anterolateral to the talus on image 24 series 11. 9 mm enhancing focus is noted along the anterior margin of the peroneus brevis inframalleolar segment on image 30 series 11. Additional peripherally enhancing fluid in the flexor hallucis, image 23 series 11. There is mild tenosynovitis of the peroneus brevis and longus with areas of mild peripheral enhancement adjacent to the peroneus longus and image 17. The visualized flexor and extensor tendons appear intact. The lateral ligaments are suboptimally visualized. IMPRESSION: 1. Cutaneous ulcer of the lateral ankle with adjacent cellulitis changes. Subcentimeter peripherally enhancing fluid collections of the ankle as above are noted abutting the peroneal and flexor hallucis tendons and also lateral to the talus suspicious for small abscesses with associated infectious tenosynovitis. 2. Mild cortical indistinctness of the distal fibula with marrow edema is suspicious for early changes of osteomyelitis. 3. Small tibiotalar joint effusion. Correlate clinically to exclude infectious arthropathy. ACT 112: Negative or not required by law. The above report was generated using voice recognition software. It may contain grammatical, syntax or spelling errors. Electronically signed by: Michael Rodriguez M.D. 07/03/2022 6:00 PM Ankle X-Ray 07/06/22 13:40 FL ankle LT min 3V RTN CLINICAL HISTORY: Left ankle arthrotomy and I&D. COMPARISON STUDY: MRI of the left ankle July 03, 2022. FLUOROSCOPY TIME: 22 seconds. EXPOSURE DOSE: 1.09 mGy FLUOROSCOPIC IMAGES: 5 FINDINGS: Fluoroscopy was provided during left ankle arthrotomy, diagnostic injection and irrigation and debridement. IMPRESSION: Fluoroscopy provided during left ankle surgery, as above. ACT 112: Negative or not required by law. Electronically signed by: Cruz Berman M.D. 07/06/2022 5:08 PM
[2022-07-15] MEDS: SENNA 8.6 MG TAB PO SCH (20:29)
[2022-07-15] MEDS: LANTUS PER UNIT CHARGE SQ SCH (20:43)
[2022-07-15] MEDS: MELATONIN 3 MG TAB PO SCH (23:04)
[2022-07-16] MEDS: traMADol HCL 50 MG TABLET PO PRN ×2 (04:21→12:42)
[2022-07-16] MEDS ORDERED: VANCOMYCIN HCL 1,000 MG in SODIUM CHLORIDE 0.9% 250 ML IV SCH (06:00)
[2022-07-16 06:36] LABS: Hematocrit (blood only) 24.7 % (37.0-47.0); Hemoglobin 8.5 g/dl (12.0-16.0); Mean Corpuscular Hemoglobin 30.8 pg (25.0-34.0); Mean Corpuscular Hgb Conc 34.4 g/dL (32.0-36.0); Mean Corpuscular Volume 89.5 fL (80.0-100.0); Mean Platelet Volume 9.1 fL (9.4-12.4); Platelet Count 344 K/uL (130-400); RDW Coefficient of Variation 13.8 % (11.5-14.5); RDW Standard Deviation 44.5 fL (36.4-46.3); Red Blood Count 2.76 M/uL (4.20-5.40); White Blood Count 10.22 K/ul (4.8-10.8)
[2022-07-16 06:48] LABS: BUN Creatinine Ratio 30.6 (10-20); Calcium 8.3 mg/dl (8.5-10.1); Creatinine Clr Calc Pharmacy 93.6 ml/min; Est GFR (Non-African American) 89.8 ml/min; Magnesium 1.8 mg/dl (1.7-2.4); Phosphorus 4.4 mg/dl (2.5-4.9); Potassium 3.8 mmol/L (3.5-5.1)
[2022-07-16] MEDS: MULTIVITAMIN TAB PO SCH (08:17)
[2022-07-16] MEDS: FUROSEMIDE 20 MG TAB PO SCH (08:17)
[2022-07-16] MEDS: SACCHAROMYCES BOULARDII 250 MG CAP PO SCH (08:18)
[2022-07-16] MEDS: METOPROLOL TARTRATE 25 MG TAB PO SCH (08:18)
[2022-07-16] MEDS: SPIRONOLACTONE 25 MG TAB PO SCH (08:18)
[2022-07-16] MEDS: DOCUSATE SODIUM 100 MG CAP PO SCH (08:19)
[2022-07-16] MEDS: ENOXAPARIN INJ 30 MG/0.3 ML SYR SQ SCH (08:20)
--- NOTE | 2022-07-16 08:31 | Hospitalist Progress Note ---
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 Left Knee MRSA Septic Arthritis Stage 4 Left ankle ulcer/Left Ankle Septic Arthritis Stage 4 left buttock ulcer MRSA Bacteremia -History of MSSA Aortic valve endocarditis, previously on daptomycin then finished 6 week course with cefazolin. History of MRSA growth on sacral wound and left ankle ulcer. -Initially placed on ceftriaxone and vanco. -ID consulted -OR 07/04 left knee: washout, drain placed -OR 07/06 left ankle: washout and debridement, left distal fibula biopsy, drain placed -Left knee and left ankle drains have been removed -07/02 Left Ankle Wound Culture - MRSA -2/ Blood Cultures - 3/4 bottles MRSA -/ Left Ankle Wound Culture - MRSA -/ Left Ankle and Knee Wound Cultures - MRSA -2/ Blood Cultures - 1/4 bottles MRSA -/ Buttock Decub Culture - MRSA, few Finegoldia magna, few anaerobic gram negative bacilli -- per ID, do not need to cover for the anaerobe. -07/06 Left Ankle Wound Culture - MRSA -/ Blood Cultures - 1/4 bottles MRSA -07/10 Blood Cultures - NEGATIVE Pathology 07/07 - left distal fibula biopsy - negative for osteomyelitis -TTE results noted, aortic valve not well visualized. JILLIAN performed with no evidence of vegetation or endocarditis. -Interventional cardiology on board for evaluation forleft lower extremity angiogram and possible endovascular intervention - Arterial perfusion should be adequate to heal surgical wounds. 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 PICC line ordered - once placed, pt can be Dc'ed to [facility] -Will need to check CBC, BMP and Vanco trough (15 - 20) weekly while on IV Vanco -Per ortho, weight bearing as tolerated. Follow up with Dr. Brooks in 2 weeks Chronic diastolic CHF Aortic Stenosis Histor of Aortic Valve MSSA endocarditis -Appears euvolemic on exam -Continue Lasix 20mg PO daily, Metoprolol 25mg BID, spironolactone 50mg daily with hold parameters IDDM -HA1c 10.5% -Hold metformin while hospitalized -Lantus 20 units daily - home dose, now reduced to 10 units HS and utilizing Novolog -Blood sugars at goal DVT ppx On Lovenox BID as per Ortho CODE status Full code Disposition Plan to [place] to [facility] Admission and Anticipated Discharge Date Admission Date: July 03, 2022 Subjective Patient seen in follow-up of MRSA bacteremia, left knee and ankle septic arthritis Denies any fever, chills, chest pain, shortness of breath, nausea, vomiting, abdominal pain, dysuria, diarrhea or constipation. Currently with wound care nurse at the bedside. Discussed with wound care, patient's nurse at the bedside, test case developer, and [facility] communications representative. Blood cultures are finalized, and PICC line was ordered. Once PICC line is placed, patient can be possibly discharged to [facility] today. Review of Systems Review of Systems: All systems reviewed & are unremarkable except as noted in Subjective Physical Exam Physical Exam: Gen: obese F lying in bed, A&Ox3 HEENT: Normocephalic, atraumatic, conjunctivae moist, sclerae anicteric, mucous membranes moist Lung: Clear to Auscultation bilaterally, no wheezes/rales/rhonchi Heart: Regular rate, regular rhythm, no murmurs, rubs, or gallops Abdomen: Soft, NT, ND +BS x 4 Extremities: + L knee with healing incisions, sutures removed, mild edema. L ankle healing, suture area c/d/i Skin: Warm, no rash. + Wound vac to buttocks Results & Data Results & Data ([facility]) Vital Signs (Past 12 Hours) Vital Signs Temp Pulse Resp BP Pulse Ox O2 Del Method 07/16/22 07:43 36.5 C 88 16 129/73 92 Room Air 07/15/22 21:00 Room Air 07/15/22 20:35 36.6 C 88 18 116/72 94 Room Air Laboratory Results 07/16/22 07/16/22 07/16/22 Range/Units 08:18 06:10 06:10 WBC 10.22 (4.8-10.8) K/ul RBC 2.76 L (4.20-5.40) M/uL Hgb 8.5 L (12.0-16.0) g/dl Hct 24.7 L (37.0-47.0) % MCV 89.5 (80.0-100.0) fL MCH 30.8 (25.0-34.0) pg MCHC 34.4 (32.0-36.0) g/dL RDW Std Deviation 44.5 (36.4-46.3) fL RDW Coeff of Chintan 13.8 (11.5-14.5) % Plt Count 344 (130-400) K/uL MPV 9.1 L (9.4-12.4) fL Sodium 134 L (136-145) mmol/L Potassium 3.8 (3.5-5.1) mmol/L Chloride 101 (98-107) mmol/L Carbon Dioxide 28 (21-32) mmol/L Anion Gap 5 (3-11) BUN 22 (6-23) mg/dl Creatinine 0.72 (0.6-1.2) mg/dl Est Cr Clr Drug Dosing 93.6 ml/min Est GFR ( Amer) 104.0 ml/min Est GFR (Non-Af Amer) 89.8 ml/min BUN/Creatinine Ratio 30.6 H (10-20) Glucose 130 H (70-99(Fasting)) mg/dl POC Glucose 127 H (70-99) mg/dl Calcium 8.3 L (8.5-10.1) mg/dl Phosphorus 4.4 (2.5-4.9) mg/dl Magnesium 1.8 (1.7-2.4) mg/dl Vancomycin Trough (10-20) mcg/ml 07/15/22 07/15/22 07/15/22 Range/Units 20:27 17:05 12:23 WBC (4.8-10.8) K/ul RBC (4.20-5.40) M/uL Hgb (12.0-16.0) g/dl Hct (37.0-47.0) % MCV (80.0-100.0) fL MCH (25.0-34.0) pg MCHC (32.0-36.0) g/dL RDW Std Deviation (36.4-46.3) fL RDW Coeff of Chintan (11.5-14.5) % Plt Count (130-400) K/uL MPV (9.4-12.4) fL Sodium (136-145) mmol/L Potassium (3.5-5.1) mmol/L Chloride (98-107) mmol/L Carbon Dioxide (21-32) mmol/L Anion Gap (3-11) BUN (6-23) mg/dl Creatinine (0.6-1.2) mg/dl Est Cr Clr Drug Dosing ml/min Est GFR ( Amer) ml/min Est GFR (Non-Af Amer) ml/min BUN/Creatinine Ratio (10-20) Glucose (70-99(Fasting)) mg/dl POC Glucose 147 H 168 H 144 H (70-99) mg/dl Calcium (8.5-10.1) mg/dl Phosphorus (2.5-4.9) mg/dl Magnesium (1.7-2.4) mg/dl Vancomycin Trough (10-20) mcg/ml 07/15/22 07/15/22 07/15/22 Range/Units 09:12 09:12 09:12 WBC 9.41 (4.8-10.8) K/ul RBC 2.91 L (4.20-5.40) M/uL Hgb 8.8 L (12.0-16.0) g/dl Hct 26.4 L (37.0-47.0) % MCV 90.7 (80.0-100.0) fL MCH 30.2 (25.0-34.0) pg MCHC 33.3 (32.0-36.0) g/dL RDW Std Deviation 44.8 (36.4-46.3) fL RDW Coeff of Chintan 13.7 (11.5-14.5) % Plt Count 347 (130-400) K/uL MPV 8.9 L (9.4-12.4) fL Sodium 135 L (136-145) mmol/L Potassium 3.7 (3.5-5.1) mmol/L Chloride 100 (98-107) mmol/L Carbon Dioxide 29 (21-32) mmol/L Anion Gap 6 (3-11) BUN 22 (6-23) mg/dl Creatinine 0.66 (0.6-1.2) mg/dl Est Cr Clr Drug Dosing 102.1 ml/min Est GFR ( Amer) 109.7 ml/min Est GFR (Non-Af Amer) 94.7 ml/min BUN/Creatinine Ratio 33.3 H (10-20) Glucose 161 H (70-99(Fasting)) mg/dl POC Glucose (70-99) mg/dl Calcium 8.4 L (8.5-10.1) mg/dl Phosphorus (2.5-4.9) mg/dl Magnesium (1.7-2.4) mg/dl Vancomycin Trough 22.1 H (10-20) mcg/ml Medications Administered Current Inpatient Medications Acetaminophen (Acetaminophen 325 Mg Tab) 325 mg PO Q6H PRN PRN Reason: fever or pain Last Admin: 07/13/22 08:35 Dose: 325 mg Hydrocodone Bitart/Acetaminophen (Hydrocodone/Acetamophen 5/325mg Tab) 1 - 2 tab PO Q4H PRN PRN Reason: Pain or Pre PT Stop: 07/20/22 17:55 Last Admin: 07/15/22 23:06 Dose: 2 tab Bisacodyl (Bisacodyl 10 Mg Supp) 10 mg NC DAILY PRN PRN Reason: Constipation Stop: 08/03/22 12:00 Dextrose (Dextrose 50% 50 Ml Syringe) 25 - 50 ml IV UD PRN; Protocol PRN Reason: Hypoglycemia Protocol Stop: 08/02/22 16:03 Docusate Sodium (Docusate Sodium 100 Mg Cap) 100 mg PO BID ERAN Stop: 08/04/22 08:59 Last Admin: 07/16/22 08:19 Dose: 100 mg Enoxaparin Sodium (Enoxaparin Inj 30 Mg/0.3 Ml Syr) 30 mg SQ Q12H ERAN Stop: 08/06/22 08:59 Last Admin: 07/16/22 08:20 Dose: 30 mg Furosemide (Furosemide 20 Mg Tab) 20 mg PO DAILY ERAN Stop: 08/02/22 15:28 Last Admin: 07/16/22 08:17 Dose: 20 mg Glucagon (Glucagon For Inj 1 Mg Vial) 1 mg SQ UD PRN; Protocol PRN Reason: Hypoglycemia Protocol Stop: 08/02/22 16:03 Glucose (Glucose 40% Gel 15 Gm Tube) 15 - 30 gm PO UD PRN; Protocol PRN Reason: Hypoglycemia Protocol Stop: 08/02/22 16:03 Glucose (Glucose 10 Tab/Tube) 4 - 8 tab PO UD PRN; Protocol PRN Reason: Hypoglycemia Treatment Stop: 08/02/22 16:03 Vancomycin HCl 1,000 mg/ (Sodium Chloride) 270 mls @ 200 mls/hr IV Q12H ERAN; Protocol Stop: 08/14/22 23:59 Last Infusion: 07/16/22 08:08 Dose: Infused Insulin Aspart (Insulin Aspart Per Unit) 0 units SC ACHS [facility] Stop: 08/02/22 16:29 Last Admin: 07/15/22 20:42 Dose: 1 units Insulin Glargine (Lantus Per Unit Charge) 10 units SQ PM [facility] Stop: 08/02/22 20:59 Last Admin: 07/15/22 20:43 Dose: 10 units Loperamide HCl (Loperamide Hcl 2 Mg Cap) 2 mg PO Q8H PRN PRN Reason: Diarrhea Stop: 08/09/22 18:53 Last Admin: 07/12/22 16:54 Dose: 2 mg Melatonin (Melatonin 3 Mg Tab) 6 mg PO HSZ [facility] Stop: 08/02/22 21:59 Last Admin: 07/15/22 23:04 Dose: 6 mg Metoprolol Tartrate (Metoprolol Tartrate 25 Mg Tab) 25 mg PO BID [facility] Stop: 08/02/22 20:59 Last Admin: 07/16/22 08:18 Dose: 25 mg Miscellaneous (Carbohydrates For Hypoglycemia ) 15 - 30 gm PO UD PRN PRN Reason: Hypoglycemia Protocol Stop: 08/02/22 16:03 Miscellaneous Information (Vancomycin Consult Active) 1 each N/A UD PRN PRN Reason: Consult Stop: 08/02/22 14:36 Multivitamins (Multivitamin Tab) 1 tab PO DAILY [facility] Stop: 08/03/22 08:59 Last Admin: 07/16/22 08:17 Dose: 1 tab Naloxone HCl (Naloxone Hcl 0.4 Mg/1 Ml Vial/Carp) 0.1 mg IV Q5M PRN PRN Reason: Oversedation/Resp Depression Stop: 08/05/22 17:55 Nystatin (Nystatin Powder 15gm Btl) 1 appln EXT BID PRN PRN Reason: Rash Stop: 08/02/22 15:28 Last Admin: 07/05/22 14:20 Dose: 1 appln Ondansetron HCl (Ondansetron Inj 2 Mg/Ml 2 Ml Vial) 4 mg IV Q6H PRN PRN Reason: Nausea And Vomiting Stop: 08/03/22 12:33 Last Admin: 07/13/22 04:35 Dose: 4 mg Polyethylene Glycol (Polyethylene (Miralax) 17 Gm Pack) 17 gm PO DAILY ERAN Stop: 08/03/22 08:59 Last Admin: 07/15/22 09:00 Dose: Not Given Saccharomyces Boulardii (Saccharomyces Boulardii 250 Mg Cap) 250 mg PO DAILY ERAN Stop: 08/03/22 08:59 Last Admin: 07/16/22 08:18 Dose: 250 mg Sennosides (Senna 8.6 Mg Tab) 17.2 mg PO HS ERAN Stop: 08/03/22 20:59 Last Admin: 07/15/22 20:29 Dose: 17.2 mg Spironolactone (Spironolactone 25 Mg Tab) 50 mg PO DAILY ERAN Stop: 08/02/22 15:28 Last Admin: 07/16/22 08:18 Dose: 50 mg Tramadol HCl (Tramadol Hcl 50 Mg Tablet) 50 mg PO Q4H PRN PRN Reason: Pain Stop: 08/02/22 16:07 Last Admin: 07/16/22 04:21 Dose: 50 mg
[2022-07-16] MEDS: INSULIN ASPART PER UNIT SC SCH ×2 (08:49→12:25)
[2022-07-16] MEDS: POLYETHYLENE (MIRALAX) 17 GM PACK PO SCH (08:49)
--- NOTE | 2022-07-16 12:14 | XRay Report ---
XR chest 1V portable HISTORY: Check PICC line placement COMPARISON: Chest 07/03/2022. FINDINGS: The cardiac silhouette is mildly enlarged. There is mild central pulmonary vascular congest ion without overt edema. A few bibasilar linear densities favor subsegmental atelectasis. Otherwise, lungs are clear. Suspect trace bilateral pleural effusions. A right PICC terminates in the SVC. IMPRESSION: 1. The right PICC terminates in the SVC. 2. No pneumothorax. 3. Mild cardiomegaly with mild congestive change and trace bilateral pleural effusions. ACT 112: Negative or not required by law. Electronically signed by: Dino Goldman M.D. 07/16/2022 12:13 PM
--- NOTE | 2022-07-16 14:24 | Discharge Summary ---
Date of Service July 16, 2022 Admission HPI Per Admitting Provider Ms Phyllis Mccollum is a 62 year old female with history of morbid obesity, stage 3 sacral wound with wound vac and stage 4 left ankle ulcer follows at the wound clinic, history also of mitral regurgitation, aortic valve endocarditis, peripheral arterial disease, F0YC-pvyiozb dependent, Chronic diastolic CHF, cirrhosis presents today with left knee pain. Patient is a poor historian and is somewhat groggy from medications received in ER. History obtained primarily from chart review. Patient reports always having left knee pain but that yesterday it became severe and intolerable so she came to the ER. She has a known sacral ulcer (wound vac) and left ankle ulcer which she follows [facility]. Left ankle ulcer she reports has been having increased drainage and there was concern it may be infected but she is not on antibiotics currently but per Wound Care notes an MRI is planned. She denies fever/chills/nausea/vomiting/chest pain or shortness of breath. She denies a personal history of gout but reports that her father and sister both has gout. Of note, she was admitted here 04/04-04/14/22 after not having received healthcare in over 30 years and during that hospitalization was found to have sacral ulcer, lower extremity wounds, MSSA bacteremia, new onset CHF, respiratory failure, cirrhosis. She was eventually discharged home on 6 weeks of daptomycin IV daily (administered via [facility]) after refusing rehab. She was later readmitted 04/19-05/12/22 due to frequent falls and ambulatory dysfunction and later discharged to [facility] on cefazolin to complete antibiotic course. Admission Exam Per Admitting Provider Physical Exam: Morbidly obese, drowsy but arousable, no acute distress ENMT: Normocephalic, atraumatic, neck thick Respiratory: Breathing comfortably on room air, no wheezing/rhonchi/rales Cardiovascular: +systolic murmur loudest on right upper sternal border, no rubs/gallops, regular rhythm Gastrointestinal (Abdomen): Soft, non tender, non distended Musculoskeletal: +left knee swelling that is tender to touch - erythema Skin: left ankle ulcer with no surrounding erythema, Known sacral ulcer with wound vac (I could not examine due to patient being unable to reposition herself) Neurologic: drowsy but arousable, spontaneously moving extremities, poor historian Principal Diagnosis MRSA bacteremia Left knee, and ankle septic arthritis Discharge Exam Gen: obese F lying in bed, A&Ox3 HEENT: Normocephalic, atraumatic, conjunctivae moist, sclerae anicteric, mucous membranes moist Lung: Clear to Auscultation bilaterally, no wheezes/rales/rhonchi Heart: Regular rate, regular rhythm Abdomen: Soft, NT, ND +BS x 4 Extremities: + L knee with healing incisions, sutures removed, mild edema. L ankle healing, suture area c/d/i Skin: Warm, no rash. + Wound vac to buttocks Discharge Data Allergies Allergy/AdvReac Type Severity Reaction Status Date / Time No Known Allergies Allergy Verified 07/03/22 01:35 Consultations 07/03/22 08:22 ED Decision to Admit Stat 07/03/22 10:06 Consult Orthopedic Surgery Routine 07/03/22 18:30 Consult Infectious Diseases Routine 07/06/22 18:15 Consult Vascular Surgery Routine 07/09/22 22:10 Consult Cardiology Routine Procedures Performed Operation Date: 07/04/22 08:00 Actual Procedures p Left Knee Arthroscopy Irrigation and Debridement(Left) - Moises Brooks MD s Left Ankle Aspiration(Left) - Moises Brooks MD Operation Date: 07/06/22 13:40 Actual Procedures p Left Ankle Arthrotomy, Irrigation and Debridement, Diagnostic Injection, Biopsy Left Distal Fibula (Left) - Moises Brooks MD Operation Date: 07/09/22 07:15 Actual Procedures p Angio Extremity Unilateral - Hiren Fields MD s [place] [facility] ALEP 3rd Order - Hiren Fields MD Operation Date: 07/12/22 10:00 Actual Procedures p Echo Transesophageal - Nima Santana MD s Echo Color Flow - Nima Santana MD s Echo Doppler Complete - Nima Santana MD Ordered Studies 07/03/22 03:44 CT knee LT wo con Urgent FINDINGS: Tricompartmental osteoarthritis, severe within the medial compartment, moderate to severe within the patellofemoral joint and moderate within the lateral compartment.. Small to moderate joint effusion. 3.2 x 3.9 x 5.3 cm Coulter's cyst. Extensive arterial calcifications. Mild to moderate muscular atrophy. No acute fracture, dislocation or osseous erosion identified. IMPRESSION: 1. No acute fracture or dislocation. 2. Tricompartmental osteoarthritis of the knee redemonstrated, severe within the medial compartment. 3. Small to moderate joint effusion with Coulter's cyst. 07/03/22 17:05 MRI Ankle [MR ankle LT wo/w con] Routine FINDINGS: Motion degraded exam. Moderate marrow edema of the talus, anterior to mid calcaneus and distal fibula with mild to moderate marrow edema of the medial malleolus.There is mild cortical indistinctness of the distal fibula. Small tibiotalar and subtalar joint effusions. Atrophy of the intrinsic musculature with intramuscular edema and mild enhancement. There is a cutaneous ulcer of the lateral ankle with skin thickening, subcutaneous and deep tissue edema and enhancement. Peripheral enhancement within the posterior joint recess measuring up to 9 mm on image 21 series 11 and 8 mm anterolateral to the talus on image 24 series 11. 9 mm enhancing focus is noted along the anterior margin of the peroneus brevis inframalleolar segment on image 30 series 11. Additional peripherally enhancing fluid in the flexor hallucis, image 23 series 11. There is mild tenosynovitis of the peroneus brevis and longus with areas of mild peripheral enhancement adjacent to the peroneus longus and image 17. The visualized flexor and extensor tendons appear intact. The lateral ligaments are suboptimally visualized. IMPRESSION: 1. Cutaneous ulcer of the lateral ankle with adjacent cellulitis changes. Subcentimeter peripherally enhancing fluid collections of the ankle as above are noted abutting the peroneal and flexor hallucis tendons and also lateral to the talus suspicious for small abscesses with associated infectious tenosynovitis. 2. Mild cortical indistinctness of the distal fibula with marrow edema is suspicious for early changes of osteomyelitis. 3. Small tibiotalar joint effusion. Correlate clinically to exclude infectious arthropathy. 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 Left Knee MRSA Septic Arthritis Stage 4 Left ankle ulcer/Left Ankle Septic Arthritis Stage 4 left buttock ulcer MRSA Bacteremia -History of MSSA Aortic valve endocarditis, previously on daptomycin then finished 6 week course with cefazolin. History of MRSA growth on sacral wound and left ankle ulcer. -Initially placed on ceftriaxone and vanco. -ID consulted -OR 07/04 left knee: washout, drain placed -OR 07/06 left ankle: washout and debridement, left distal fibula biopsy, drain placed -Left knee and left ankle drains have been removed -07/02 Left Ankle Wound Culture - MRSA -2/ Blood Cultures - 3/4 bottles MRSA -07/03 Left Ankle Wound Culture - MRSA -07/04 Left Ankle and Knee Wound Cultures - MRSA -07/05 Blood Cultures - / bottles MRSA -/ Buttock Decub Culture - MRSA, few Finegoldia magna, few anaerobic gram negative bacilli -- per ID, do not need to cover for the anaerobe. -07/06 Left Ankle Wound Culture - MRSA -07/08 Blood Cultures - / bottles MRSA -07/10 Blood Cultures - NEGATIVE Pathology 07/07 - left distal fibula biopsy - negative for osteomyelitis -TTE results noted, aortic valve not well visualized. JILLIAN performed with no evidence of vegetation or endocarditis. -Interventional cardiology on board for evaluation forleft lower extremity angiogram and possible endovascular intervention - Arterial perfusion should be adequate to heal surgical wounds. No need for intervention on chronically occluded ADVANCE SCOUT as per interventional cardiology -Will need 6 weeks of IV Vancomycin (starting from July 10). PICC line ordered and placed (07/16/2022), pt can be Dc'ed to [facility] -Will need to check CBC, BMP and Vanco trough (15 - 20) weekly while on IV Vanco -Per ortho, weight bearing as tolerated. Follow up with Dr. Brooks in 2 weeks Chronic diastolic CHF Aortic Stenosis Histor of Aortic Valve MSSA endocarditis -Appears euvolemic on exam -Continue Lasix 20mg PO daily, Metoprolol 25mg BID, spironolactone 50mg daily with hold parameters IDDM -HA1c 10.5% -Hold metformin while hospitalized -Lantus 20 units daily - home dose, now reduced to 10 units HS and utilizing Novolog -Blood sugars at goal DVT ppx On Lovenox BID as per Ortho CODE status Full code Disposition Plan to DC to [facility] Total Time Total Time Spent Total Time Spent (In Minutes): 40 Discharge Plan Discharge Items Patient Disposition: Transfer Inpatient Rehab Fac Reason For Visit: LEFT KNEE SWELLING Discharge Diagnosis: MRSA bacteremia Left knee, and ankle septic arthritis Activity: Per Instructions section Non-emergency contact: Primary Care Provider, Surgeon and Specialist Call non-emergency contact if: you have any medication questions and your sy mptoms worsen Follow-up/Referrals: Christopher Castro MD [Primary Care Provider] - Moises Brooks MD [Surgeon] - 08/06/22 12:30 pm Diet: Carb Consistent or DM2 and Heart Healthy Addtl Attending Provider Instructions: Continue antibiotic treatment with IV vancomycin, for next 5 weeks Obtain blood work weekly while on IV vancomycin Follow instructions below from orthopedics, and follow-up with Dr. Brooks in 2 weeks. Addtl Assembler Body Provider Instructions: Orthopedic instructions: -Weight-bear as tolerated left knee and left ankle. -Use walker to assist with ambulation. -May do full range of motion of her left ankle and left knee. -Ice to left ankle and knee as needed for pain and swelling. -Steri-Strips in place on left knee and left ankle. Replace Steri-Strips for 7 to 10 days after placed. -May shower or bathe. Do not soak or submerge incisions. Reapply Steri-Strips as needed. -Continue IV vancomycin through your PICC line as ordered and directed by infectious disease. -Continue Lovenox until discontinued by Dr. Brooks. -Follow-up with Dr. Brooks as scheduled. Please call [phone] with any question or concerns or need to reschedule appointment. Pending Studies at Discharge: No Stand-Alone Forms: My [facility] Skilled Items Patient informed of condition?: Yes DNR: No Discharge Level of Care: Acute rehab Communicable Disease: No Discharge Prognosis: Stable Lines: PICC Urinary Catheter: Yes Medications and DC Order Prescriptions: New vancomycin 1.25 gram recon soln 1.25 g IV Q12H 37 Days Qty: 1 0RF insulin glargine [Lantus U-100 Insulin] 100 unit/mL Solution 10 unit subcut PM 30 Days Qty: 3 0RF enoxaparin [Lovenox] 30 mg/0.3 mL Syringe 30 mg subcut Q12H 14 Days Qty: 8.4 0RF tramadol 50 mg Tablet 50 mg PO Q4H PRN (Reason: pain) Qty: 10 0RF hydrocodone-acetaminophen 5-325 mg Tablet 1 tab PO Q4H PRN (Reason: pain) Qty: 10 0RF docusate sodium 100 mg Capsule 100 mg PO BID Qty: 10 0RF Saccharomyces boulardii [Florastor] 250 mg Capsule 250 mg PO DAILY Qty: 30 0RF sennosides [Senokot] 8.6 mg Tablet 17.2 mg PO HS Qty: 10 0RF Continued (DME) blood-glucose meter [[employer]iang [employer] Autom[employer]Touch Ultra2 Meter] [facility]ructions .Route Qty: 1 0RF Rx Instructions: As directed (DME) OneTouch Ultra Test Strip See Rx Instructions .Route Qty: 50 0RF Rx Instructions: As directed for glucose monitoring once daily (DME) lancets [OneTouch Delica Lancets] 33 gauge [facility] See Rx Instructions .Route Qty: 100 0RF Rx Instructions: As directed for once daily glucose monitoring potassium chloride 20 mEq Tablet,Er Particles/Crystals 20 meq PO QAM Qty: 30 0RF spironolactone 50 mg tablet 50 mg PO DAILY Qty: 30 0RF acetaminophen [Tylenol] 325 mg capsule 325 mg PO Q6H PRN (Reason: fever or pain) Qty: 30 0RF furosemide [Lasix] 20 mg tablet 20 mg PO DAILY Qty: 30 0RF polyethylene glycol 3350 [Miralax] 17 gram/dose powder 17 g PO DAILY PRN (Reason: constipation) Qty: 119 0RF metoprolol tartrate 25 mg Tablet 25 mg PO BID Qty: 60 0RF multivitamin Tablet 1 tab PO DAILY loperamide 2 mg Tablet 2 mg PO DIRECTED PRN (Reason: Diarrhea) nystatin 100,000 unit/gram powder 1 applic TOPICAL BID PRN (Reason: Rash) melatonin 5 mg Tablet 5 mg PO HS metformin 500 mg tablet extended release 24 hr 500 mg PO BIDM Changed insulin glargine 100 unit/mL (3 mL) insulin pen 10 unit subcut PM 30 Days Qty: 3 0RF Discharge Orders: Discharge Order (Routine); Ordered 07/16/22 Ordered By: Dilip Jenkins/Other Patient Handouts: Managing Type 2 Diabetes Admission Data Admit Date/Time: 07/03/22 10:06 Attending Provider: Dilip Parham Admit Provider: Katy Dawson Primary Care Provider: Christopher Castro Other Providers: [employer] ; [facility] ; [facility] ; [facility] ; Katy Dawson ; Moises Brooks ; Germán Everett ; Pastora Ureña ; Gagan Ramirez I. ; Milind Lorenz II ; Lulu Gonzalez ; Christopher Bustillos ; Gold Gallardo ; Jair Benjamin ; Hiren Fields ; Nima Santana ; Marie Blake ; Lucia Ramirez
[2022-07-16] MEDS: HYDROCODONE/ACETAMOPHEN 5/325MG TAB PO PRN (15:25)
--- NOTE | 2022-07-16 15:57 | Orthopedic Progress Note ---
Date of Service July 16, 2022 Assessment & Plan (1) Septic arthritis of left ankle: Plan: POD 10 - s/p I&D left ankle, biopsy of left distal fibula WBAT PT/OT ROM as tolerated Biopsy results negative for osteomyelitis. Sutures removed from her left ankle incision today. Steri-Strips applied. Continue IV Vanco Continue Lovenox Dr. Brooks present for today's visit. Follow up with Dr. Brooks 2 weeks after discharge. Call [phone] if not already scheduled. (2) Septic arthritis of knee, left: Plan: POD 12 - s/p I&D left knee, arthritis left knee WBAT PT/OT ROM as tolerated steri-strips in place. Continue IV Vanco Continue Lovenox Dr. Brooks present for today's visit. Follow up with Dr. Brooks 2 weeks after discharge. Call [phone] if not already scheduled. (3) Pressure ulcer of left ankle, stage 4: Plan: Continue care by wound care nurse Optiam and aquacel AG in place. Wound significantly smaller. Follow up with Dr. Brooks 2 weeks after discharge. Call [phone] if not already scheduled. Admission and Anticipated Discharge Date Admission Date: July 03, 2022 Subjective Patient resting in bed. No complaints of pain at rest. Being discharged to [facility] this afternoon. Physical Exam Musculoskeletal: Left ankle incision, sutures are retained. Clean dry and intact. Skin edges well approximated. Mild erythema around the suture edges. No ankle effusion. Tolerates active range of motion of the left ankle without discomfort. Lateral wound is healing nicely. Results & Data ([facility]) Vital Signs (Past 12 Hours) Vital Signs Temp Pulse Resp BP Pulse Ox O2 Del Method 07/16/22 14:58 36.7 C 87 16 126/62 91 Room Air 07/16/22 07:38 Room Air 07/16/22 07:43 36.5 C 88 16 129/73 92 Room Air
[2022-07-17] MEDS ORDERED: VANCOMYCIN LEVEL SCH (05:00)
== END 2022-07-16 16:50 | DRG 477 ==
LOC: ED 01:08 → SUATTDRO 10:06 → EDINP 10:06 → 2S 15:30 → 3E 07-13 21:06
PROC: CLB.AEU (2022-07-09 07:15)

== ENCOUNTER 2024-08-01 04:48 | Inpatient (IN) ==
[2024-08-01 05:49] LABS: Basophils # (auto) 0.06 K/uL (0.00-0.20); Basophils % (auto) 0.7 %; Eosinophils % (auto) 2.2 %; Hematocrit (blood only) 31.7 % (37.0-47.0); Hemoglobin 11.6 g/dl (12.0-16.0); Immature Granulocytes # (auto) 0.02 K/uL (0.01-0.20); Immature Granulocytes % (auto) 0.2 %; Lymphocytes % (auto) 31.6 %; Mean Corpuscular Hemoglobin 31.8 pg (25.0-34.0); Mean Corpuscular Hgb Conc 36.6 g/dL (32.0-36.0); Mean Corpuscular Volume 86.8 fL (80.0-100.0); Mean Platelet Volume 9.2 fL (9.4-12.4); Monocytes # (auto) 0.55 K/uL (0.11-0.59); Neutrophils # (auto) 5.44 K/uL (1.40-6.50); Neutrophils % (auto) 59.3 %; Platelet Count 205 K/uL (130-400); RDW Coefficient of Variation 12.4 % (11.5-14.5); RDW Standard Deviation 39.3 fL (36.4-46.3); Red Blood Count 3.65 M/uL (4.20-5.40); White Blood Count 9.17 K/ul (4.8-10.8)
[2024-08-01 05:56] LABS: Appearance Urine Clear (Clear); Bacteria Urine Automated 4+ (None Seen); Bilirubin Urine Negative (Negative); Blood Urine 3+ (Negative); Cast Urine Automated 0-2 /lpf (0-2); Color Urine Yellow; Epithelial Cell Urine Auto 0-2 /hpf (0-2); Glucose Urine UA Negative (Negative); Ketones Urine Negative (Negative); Leukocyte Esterase Urine 3+ (Negative); Nitrite Urine Negative (Negative); Protein Urine Trace (Negative); RBC Urine Automated >20 /hpf (0-2); Specific Gravity Urine 1.004 (1.000-1.030); Urobilinogen Urine Negative (Negative); WBC Urine Automated 21-50 /hpf (0-5); pH Urine 6.5 (4.5-7.5)
[2024-08-01 06:04] LABS: Alanine Aminotransferase 12 U/L (7-52); Albumin Globulin Ratio 1.1 (0.9-2); Albumin Level 3.9 gm/dl (3.4-5.0); Alkaline Phosphatase 84 U/L (34-104); Anion Gap 7 (3-11); Aspartate Aminotransferase 19 U/L (13-39); BUN Creatinine Ratio 12.5 (10-20); Bilirubin,Total 0.8 mg/dl (0.2-1.0); Blood Urea Nitrogen 11 mg/dl (6-23); Calcium 9.1 mg/dl (8.6-10.3); Carbon Dioxide 25 mmol/L (21-32); Chloride 91 mmol/L (98-107); Globulin 3.5 gm/dl (2.5-4.0); Glucose 84 mg/dl (70-99(Fasting)); Lipase 68 U/L (11-82); Potassium 4.3 mmol/L (3.5-5.1); Sodium 123 mmol/L (136-145); Total Protein 7.4 gm/dl (6.0-8.3)
[2024-08-01 06:27] LABS: Prothrombin Time 10.4 Seconds (9.0-12.0)
--- NOTE | 2024-08-01 07:14 | Emergency Department Note ---
Impression & Plan Hyponatremia, Complicated UTI (urinary tract infection), Lozano catheter present ED Provider Note NAME: CARLOS GALDAMEZ AGE: 64 SEX: F : 1960 ARRIVES VIA: Walk-In INFORMANT: Patient ED PROVIDER(S): Jameel Stubbs MD CHIEF COMPLAINT: Abdominal pain PLAN: Disposition: Admit MEDICAL DECISION MAKING: The patient is a pleasant 64-year-old woman with a past medical history of dilated cardiomyopathy, diastolic heart failure, osteomyelitis of the pelvis, aortic valve endocarditis who presents to the emergency department via walk-in accompanied by her for lower abdominal/bladder pressure with concern for urinary infection and possible impaired drainage of her Lozano catheter which she reports was changed last week. She has any fevers, chills, cough, congestion. She reports upset stomach but denies vomiting or diarrhea. Patient reports she did drink excess water prior to coming to the emergency department hoping this would help her urinary symptoms. On evaluation the patient is no distress, afebrile heart in the 100s and vital signs otherwise stable. She appears clinically dry. Abdomen is nontender. Bladder scan was negative for urinary retention and Lozano catheter is draining appropriately. WBC within normal limits. Platelets within normal limits. H/H 11.6/31.7, similar to prior. Chemistry without metabolic acidosis. Sodium 123 with glucose of 84. Osmolality is 257. Urine osmolality is diluted and so likely related to excess free water intake. UA taken from patient's Lozano catheter bag which was changed last week demonstrates 4+ bacteria and WBCs. Nitrites are negative. Findings reviewed the patient at the bedside. Given the patient's sodium we did discuss recommendations for admission for further management of this and urinary infection. However the patient was insistent she did not want to be admitted. We did discuss that symptoms of low sodium can impair judgment and mentation. Patient was made aware that her may need to help make this decision if he feels she is becoming confused. While the patient's discharge arrangements were being prepared including follow-up with her PCP for repeat sodium the patient's expressed to RN concerned that she was more confused than usual and so he contacted her daughter to come to emergency department to help make this assessment/determination. Upon daughter's arrival she did concur that the patient was confused from baseline and upon further discussion with the patient and family the patient did agree with plan for admission for further management. Blood cultures were obtained and empiric treatment for urinary infection initiated with ceftriaxone and daptomycin. Case was discussed with Daniel Issa PAC with Dr. [facility], who will evaluate the patient for admission. Further management per admitting team. Triage Nursing notes reviewed and agree them. Prior/external medical records reviewed Vital Signs: reviewed Differential diagnosis: Renal colic, UTI, appendicitis, diverticulitis, mesenteric ischemia, aortic pathology, infections, inflammatory bowel disease, PUD, biliary pathology, as well as other pathologies. ER treatment provided: See below. Diagnostics interpreted by me: Cardiac Monitoring: An order for continuous cardiac monitoring was placed and demonstrated sinus tachycardia, 102 bpm, no ectopy. Laboratory studies: See below Imaging studies: See below Consultation(s): Case was discussed with Daniel Iss[facility], who will evaluate the patient for admission. HPI: The patient is a pleasant 64-year-old woman with a past medical history of dilated cardiomyopathy, diastolic heart failure, osteomyelitis of the pelvis, aortic valve endocarditis who presents to the emergency department via walk-in accompanied by her for lower abdominal/bladder pressure with concern for urinary infection and possible impaired drainage of her Lozano catheter which she reports was changed last week. She has any fevers, chills, cough, congestion. She reports upset stomach but denies vomiting or diarrhea. Patient reports she did drink excess water prior to coming to the emergency department hoping this would help her urinary symptoms. ROS: See above HPI for pertinent positives & negatives. A total of 10 systems reviewed and were otherwise negative. VITALS:See Below PHYSICAL EXAMINATION: GENERAL: Awake, alert, in no distress, BMI 40.4. HENT: Normocephalic, atraumatic. Oropharynx unremarkable. EYES: Normal conjunctiva. Sclera non-icteric. EOMI. No nystamgus. PEARRL. NECK: Supple. No nuchal rigidity. FROM. No JVD. RESPIRATORY: Clear to auscultation. CARDIAC: Regular rate, normal rhythm. Extremities warm and well perfused. Pulses equal. ABDOMEN: Soft, non-distended. No tenderness to palpation. No rebound or guarding. Lozano catheter present. MUSCULOSKELETAL: Chest examination reveals no tenderness. The back is symmetrical on inspection without obvious abnormality. There is no CVA tenderness to palpation. No joint edema. LOWER EXTREMITIES: Calves are equal size bilaterally and non-tender. No edema. No discoloration. NEURO: Mild confusion from baseline per family where patient is asking same question repeatedly. Cranial nerves II-XII grossly intact. No focal sensory or motor deficits noted. SKIN: No rash or jaundice noted. 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 Hx of transesophageal echocardiography (JILLIAN) for monitoring Lozano catheter in place Surgical History History of cataract surgery History of esophagogastroduodenoscopy (EGD) History of ankle surgery lt ankle arthotomy with I&D Hx of arthroscopy of left knee Hx of tooth extraction has dentures Family History Other Family history non-contributory Social History Smoking Status: Never smoker Second Hand Exposure: Yes (hx- used to smoke); Do You Dip or Chew Tobacco: No; Hx Alcohol Use: No Hx Substance Use: No Preferred Language: Maori Communication Ability: Effective Cardiology Consultants Required: No Beliefs That Will Affect Care: None marital status: Current Living Situation: Spouse Current Living Situation Comment: one story set up, 1 step to enter How many Children do You have: 1 Feels Safe at Home: Yes Assistive Devices: Denture - Upper, Denture - Lower and Walker Allergies Allergies Allergy/AdvReac Type Severity Reaction Status Date / Time No Known Allergies Allergy Verified 08/01/24 08:36 Home Meds Home Medications Medication Instructions Recorded Confirmed melatonin 5 mg tablet 5 mg PO HS 07/03/22 08/01/24 metformin 500 mg tablet,extended 500 mg PO DAILY 07/03/22 08/01/24 release 24 hr multivitamin 1 tab PO DAILY 07/03/22 08/01/24 nystatin 100,000 unit/gram topical 1 applic topical BID PRN Rash 07/03/22 08/01/24 powder furosemide 20 mg tablet (Lasix) 20 mg PO QAM 01/04/23 08/01/24 semaglutide 2 mg/dose (8 mg/3 mL) 2 mg subcut WK 08/01/24 08/01/24 subcutaneous pen injector (Ozempic) spironolactone 50 mg tablet 50 mg PO QAM 08/01/24 08/01/24 Previous Rx's Medication Instructions Recorded blood sugar diagnostic (Blippy Social CommerceTouch #50 ea 04/14/22 Ultra Test strips) blood-glucose meter (Blippy [employer] CommerceTouch #1 ea 04/14/22 Ultra2 Meter) lancets 33 gauge (OneTouch Delica #100 ea 04/14/22 Lancets) acetaminophen 325 mg capsule 325 mg PO Q6H PRN fever or pain 05/12/22 (Tylenol) #30 caps metoprolol tartrate 25 mg tablet 25 mg PO BID #60 tabs 05/12/22 potassium chloride 20 mEq 20 meq PO QAM #30 tabs 12/14/22 tablet,extended release(part/cryst) Saccharomyces sharroni 250 mg 250 mg PO DAILY #30 caps 07/16/22 capsule (Florastor) Results & Data (ED) Vital Signs Vital Signs - 24 hr 08/01/24 04:53 08/01/24 05:03 08/01/24 05:03 Temperature 36.4 C L Temperature Source Oral Pulse Rate 99 H 97 H Pulse Rate [Apical] 97 H Pulse Rate from SpO2 Sensor Pulse Rhythm Regular Respiratory Rate 20 20 Respiratory Effort / Characteristics Non-Labored Spontaneous Respiratory Depth Normal Respiratory Pattern Regular Blood Pressure 132/83 Blood Pressure [Right Arm] 154/96 H Blood Pressure Mean 99 Blood Pressure Mean [Right Arm] 115 Pulse Oximetry 99 100 100 Oxygen Delivery Method Room Air Room Air Room Air Sepsis Recent Fever Within 48 Hours No Sepsis New/Unexplained Change in Mental Status No Sepsis Action Taken by Nursing No Action Required 08/01/24 06:00 08/01/24 06:22 08/01/24 06:30 Temperature Temperature Source Pulse Rate 98 H 98 H Pulse Rate [Apical] 96 H Pulse Rate from SpO2 Sensor Pulse Rhythm Respiratory Rate 20 17 Respiratory Effort / Characteristics Respiratory Depth Normal Respiratory Pattern Blood Pressure 136/90 Blood Pressure [Right Arm] 144/91 H Blood Pressure Mean 111 Blood Pressure Mean [Right Arm] 108 Pulse Oximetry 100 100 Oxygen Delivery Method Room Air Room Air Sepsis Recent Fever Within 48 Hours Sepsis New/Unexplained Change in Mental Status Sepsis Action Taken by Nursing 08/01/24 07:00 08/01/24 07:00 08/01/24 07:00 Temperature Temperature Source Pulse Rate Pulse Rate [Apical] Pulse Rate from SpO2 Sensor Pulse Rhythm Respiratory Rate Respiratory Effort / Characteristics Respiratory Depth Respiratory Pattern Blood Pressure 108/69 108/69 108/69 Blood Pressure [Right Arm] Blood Pressure Mean 95 95 95 Blood Pressure Mean [Right Arm] Pulse Oximetry Oxygen Delivery Method Sepsis Recent Fever Within 48 Hours Sepsis New/Unexplained Change in Mental Status Sepsis Action Taken by Nursing 08/01/24 07:03 08/01/24 07:51 08/01/24 07:54 Temperature Temperature Source Pulse Rate 101 H 101 H 101 H Pulse Rate [Apical] Pulse Rate from SpO2 Sensor 101 H Pulse Rhythm Respiratory Rate 14 20 Respiratory Effort / Characteristics Respiratory Depth Respiratory Pattern Blood Pressure Blood Pressure [Right Arm] Blood Pressure Mean Blood Pressure Mean [Right Arm] Pulse Oximetry 100 Oxygen Delivery Method Sepsis Recent Fever Within 48 Hours Sepsis New/Unexplained Change in Mental Status Sepsis Action Taken by Nursing 08/01/24 08:00 08/01/24 08:00 08/01/24 08:03 Temperature Temperature Source Pulse Rate 101 H Pulse Rate [Apical] Pulse Rate from SpO2 Sensor Pulse Rhythm Respiratory Rate Respiratory Effort / Characteristics Respiratory Depth Respiratory Pattern Blood Pressure 128/86 128/86 Blood Pressure [Right Arm] Blood Pressure Mean 103 103 Blood Pressure Mean [Right Arm] Pulse Oximetry Oxygen Delivery Method Sepsis Recent Fever Within 48 Hours Sepsis New/Unexplained Change in Mental Status Sepsis Action Taken by Nursing 08/01/24 08:30 08/01/24 08:51 08/01/24 09:01 Temperature Temperature Source Pulse Rate 102 H 111 H Pulse Rate [Apical] Pulse Rate from SpO2 Sensor Pulse Rhythm Respiratory Rate 20 17 Respiratory Effort / Characteristics Respiratory Depth Respiratory Pattern Blood Pressure 113/69 Blood Pressure [Right Arm] Blood Pressure Mean 74 Blood Pressure Mean [Right Arm] Pulse Oximetry Oxygen Delivery Method Sepsis Recent Fever Within 48 Hours Sepsis New/Unexplained Change in Mental Status Sepsis Action Taken by Nursing 08/01/24 09:01 08/01/24 09:06 08/01/24 09:21 Temperature Temperature Source Pulse Rate 103 H 104 H Pulse Rate [Apical] Pulse Rate from SpO2 Sensor Pulse Rhythm Respiratory Rate 22 18 Respiratory Effort / Characteristics Respiratory Depth Respiratory Pattern Blood Pressure 113/69 Blood Pressure [Right Arm] Blood Pressure Mean 74 Blood Pressure Mean [Right Arm] Pulse Oximetry Oxygen Delivery Method Sepsis Recent Fever Within 48 Hours Sepsis New/Unexplained Change in Mental Status Sepsis Action Taken by Nursing 08/01/24 09:33 08/01/24 09:36 08/01/24 09:50 Temperature Temperature Source Pulse Rate 102 H 100 H Pulse Rate [Apical] Pulse Rate from SpO2 Sensor Pulse Rhythm Respiratory Rate 17 23 Respiratory Effort / Characteristics Respiratory Depth Respiratory Pattern Blood Pressure 150/97 H Blood Pressure [Right Arm] Blood Pressure Mean 122 Blood Pressure Mean [Right Arm] Pulse Oximetry Oxygen Delivery Method Sepsis Recent Fever Within 48 Hours Sepsis New/Unexplained Change in Mental Status Sepsis Action Taken by Nursing 08/01/24 09:50 08/01/24 10:00 08/01/24 10:01 Temperature Temperature Source Pulse Rate 103 H Pulse Rate [Apical] Pulse Rate from SpO2 Sensor Pulse Rhythm Respiratory Rate 21 Respiratory Effort / Characteristics Respiratory Depth Respiratory Pattern Blood Pressure 150/97 H 163/102 H Blood Pressure [Right Arm] Blood Pressure Mean 122 117 Blood Pressure Mean [Right Arm] Pulse Oximetry Oxygen Delivery Method Sepsis Recent Fever Within 48 Hours Sepsis New/Unexplained Change in Mental Status Sepsis Action Taken by Nursing 08/01/24 10:01 08/01/24 10:01 Temperature Temperature Source Pulse Rate Pulse Rate [Apical] Pulse Rate from SpO2 Sensor Pulse Rhythm Respiratory Rate Respiratory Effort / Characteristics Respiratory Depth Respiratory Pattern Blood Pressure 163/102 H 163/102 H Blood Pressure [Right Arm] Blood Pressure Mean 117 117 Blood Pressure Mean [Right Arm] Pulse Oximetry Oxygen Delivery Method Sepsis Recent Fever Within 48 Hours Sepsis New/Unexplained Change in Mental Status Sepsis Action Taken by Nursing Laboratory Data Attestation: I reviewed the patient's lab results. 08/02/24 06:26 08/02/24 06:26 Lab Results 08/01/24 08/01/24 08/01/24 Range/Units 05:34 05:50 07:40 WBC 9.17 (4.8-10.8) K/ul RBC 3.65 L (4.20-5.40) M/uL Hgb 11.6 L (12.0-16.0) g/dl Hct 31.7 L (37.0-47.0) % MCV 86.8 (80.0-100.0) fL MCH 31.8 (25.0-34.0) pg MCHC 36.6 H (32.0-36.0) g/dL RDW Std Deviation 39.3 (36.4-46.3) fL RDW Coeff of Chintan 12.4 (11.5-14.5) % Plt Count 205 (130-400) K/uL MPV 9.2 L (9.4-12.4) fL Immature Gran % (Auto) 0.2 % Neut % (Auto) 59.3 % Lymph % (Auto) 31.6 % [place] % (Auto) 6.0 % Eos % (Auto) 2.2 % Baso % (Auto) 0.7 % Neut # (Auto) 5.44 (1.40-6.50) K/uL Lymph # (Auto) 2.90 (1.20-3.40) K/uL [place] # (Auto) 0.55 (0.11-0.59) K/uL Eos # (Auto) 0.20 (0.00-0.50) K/uL Baso # (Auto) 0.06 (0.00-0.20) K/uL Immature Gran # (Auto) 0.02 (0.01-0.20) K/uL PT 10.4 (9.0-12.0) Seconds INR 1.0 (0.9-1.1) Sodium 123 L (136-145) mmol/L Potassium 4.3 (3.5-5.1) mmol/L Chloride 91 L (98-107) mmol/L Carbon Dioxide 25 (21-32) mmol/L Anion Gap 7 (3-11) BUN 11 (6-23) mg/dl Creatinine 0.88 (0.6-1.2) mg/dl Est Cr Clr Drug Dosing Not Reportable eGFR 73.34 BUN/Creatinine Ratio 12.5 (10-20) Glucose 84 (70-99(Fasting)) mg/dl Osmolality 257 L (280-300) mOsm/kg Calcium 9.1 (8.6-10.3) mg/dl Total Bilirubin 0.8 (0.2-1.0) mg/dl AST 19 (13-39) U/L ALT 12 (7-52) U/L Alkaline Phosphatase 84 (34-104) U/L Total Protein 7.4 (6.0-8.3) gm/dl Albumin 3.9 (3.4-5.0) gm/dl Globulin 3.5 (2.5-4.0) gm/dl Albumin/Globulin Ratio 1.1 (0.9-2) Lipase 68 (11-82) U/L Procalcitonin 0.05 (0-0.5) ng/ml Urine Color Yellow Urine Appearance Clear (Clear) Urine pH 6.5 (4.5-7.5) Ur Specific Bradshaw 1.004 (1.000-1.030) Urine Protein Trace H (Negative) Urine Glucose (UA) Negative (Negative) Urine Ketones Negative (Negative) Urine Blood 3+ H (Negative) Urine Nitrite Negative (Negative) Urine Bilirubin Negative (Negative) Urine Urobilinogen Negative (Negative) Ur Leukocyte Esterase 3+ H (Negative) Urine WBC (Auto) 21-50 H (0-5) /hpf Urine RBC (Auto) >20 H (0-2) /hpf U Hyaline Cast (Auto) 0-2 (0-2) /lpf U Epithel Cells (Auto) 0-2 (0-2) /hpf Urine Bacteria (Auto) 4+ H (None Seen) Urine Osmolality 105 L (500-800) mOsm/kg Ur Random Sodium 14 mmol/L Adenovirus (PCR) Not Detected (NotDetected) B. pertussis DNA (PCR) Not Detected (NotDetected) B.parapertussis DNA PCR Not Detected (NotDetected) C. pneumoniae DNA (PCR) Not Detected (NotDetected) Coronavirus OC43 (PCR) Not Detected (NotDetected) Coronavirus HKU1 (PCR) Not Detected (NotDetected) Coronavirus 229E (PCR) Not Detected (NotDetected) SARS-CoV-2 (PCR) Not Detected (NotDetected) Coronavirus NL63 (PCR) Not Detected (NotDetected) Human Metapneumovir PCR Not Detected (NotDetected) Influenza Type A (PCR) Not Detected (NotDetected) Influenza Type B (PCR) Not Detected (NotDetected) M. pneumoniae (PCR) Not Detected (NotDetected) Parainfluenza 1 (PCR) Not Detected (NotDetected) Parainfluenza 2 (PCR) Not Detected (NotDetected) Parainfluenza 3 (PCR) Not Detected (NotDetected) Parainfluenza 4 (PCR) Not Detected (NotDetected) RSV (PCR) Not Detected (NotDetected) Entero/Rhino (PCR) Not Detected (NotDetected) Administered Medications Enoxaparin Sodium (Enoxaparin Inj 40 Mg/0.4 Ml Syr) 40 mg SQ Q12H [facility] Stop: 08/31/24 11:29 Last Admin: 08/01/24 23:12 Dose: 40 mg Documented By: Admin: 08/01/24 11:53 Dose: 40 mg Documented By: BCN Daptomycin 500 mg/ Syringe 10 mls @ 5 mls/min IV Q24H [facility]; Protocol Stop: 08/12/24 08:59 Last Admin: 08/02/24 08:11 Dose: 5 mls/min Documented By: RLB Insulin Aspart (Insulin Aspart Per Unit Charge) 0 units SC ACHS [facility] Stop: 08/31/24 11:29 Last Admin: 08/02/24 08:12 Dose: Not Given Documented By: Admin: 08/01/24 20:42 Dose: Not Given Documented By: Admin: 08/01/24 17:49 Dose: 3 units Documented By: BINH Co-signed By: ROSINA Admin: 08/01/24 11:45 Dose: Not Given Documented By: NILAM Melatonin (Melatonin 3 Mg Tab) 6 mg PO HS ERAN Stop: 08/31/24 20:59 Last Admin: 08/01/24 20:42 Dose: 6 mg Documented By: PABLO Metoprolol Tartrate (Metoprolol Tartrate 25 Mg Tab) 25 mg PO BID ERAN Stop: 08/31/24 12:59 Last Admin: 08/02/24 08:10 Dose: Not Given Documented By: Admin: 08/01/24 20:42 Dose: 25 mg Documented By: Admin: 08/01/24 13:46 Dose: 25 mg Documented By: NILAM Multivitamins (Multivitamin Tab) 1 tab PO QAM ERAN Stop: 09/01/24 08:59 Last Admin: 08/02/24 08:09 Dose: 1 tab Documented By: BINH Potassium Chloride (Potassium Chloride Crtab 20 Meq Tabcr) 20 meq PO QAM ERAN Stop: 09/01/24 08:59 Last Admin: 08/02/24 08:15 Dose: 20 meq Documented By: BINH Saccharomyces Boulardii (Saccharomyces Boulardii 250 Mg Cap) 250 mg PO DAILY ERAN Stop: 09/01/24 08:59 Last Admin: 08/02/24 08:11 Dose: 250 mg Documented By: BINH Discontinued Medications Famotidine (Famotidine 20 Mg Tab) 20 mg PO NOW ONE Stop: 08/01/24 07:34 Last Admin: 08/01/24 07:42 Dose: 20 mg Documented By: NILAM Sodium Chloride (Nss) 500 mls @ 999 mls/hr IV .Q31M ONE Stop: 08/01/24 08:06 Last Infusion: 08/01/24 08:21 Dose: Infused Documented By: Admin: 08/01/24 07:42 Dose: 999 mls/hr Documented By: NILAM Ceftriaxone Sodium (Rocephin) 2,000 mg in 50 mls @ 100 mls/hr IV NOW STA Stop: 08/01/24 10:23 Last Infusion: 08/01/24 11:07 Dose: Infused Documented By: Admin: 08/01/24 10:28 Dose: 100 mls/hr Documented By: NILAM Daptomycin 525 mg/ Syringe 10.5 mls @ 5.25 mls/min IV NOW STA; Protocol Stop: 08/01/24 10:00 Last Admin: 08/01/24 11:53 Dose: 5.25 mls/min Documented By: NILAM Dextrose (D5w) 500 mls @ 125 mls/hr IV .Q4H ONE Stop: 08/02/24 07:59 Last Admin: 08/02/24 04:23 Dose: 75 mls/hr Documented By: PABLO Discharge Plan Visit Data Chief Complaint: Catheter Replacement Stated Complaint: CATH ISSUES - PRESSURE, DARKER COLOR ED Provider: Jameel Stubbs Discharge Problem: Hyponatremia, Complicated UTI (urinary tract infection), Lozano catheter present Patient Disposition: Admitted As Inpatient Discharge Instructions Interventions: ED Discharge Assessment Last Done: 08/01/24 11:11
[2024-08-01] MEDS: SODIUM CHLORIDE 0.9% 500 ML IV ONE (07:42)
[2024-08-01] MEDS: FAMOTIDINE 20 MG TAB PO ONE (07:42)
[2024-08-01 08:59] LABS: Adenovirus PCR Not Detected (NotDetected); Bordetella parapertussis PCR Not Detected (NotDetected); Bordetella pertussis PCR Not Detected (NotDetected); Chlamydia pneumoniae PCR Not Detected (NotDetected); Coronavirus 229E PCR Not Detected (NotDetected); Coronavirus CoV-2 (COVID19)PCR Not Detected (NotDetected); Coronavirus HKU1 PCR Not Detected (NotDetected); Coronavirus NL63 PCR Not Detected (NotDetected); Coronavirus OC43PCR Not Detected (NotDetected); Human Metapneumovirus PCR Not Detected (NotDetected); Influenza A PCR Not Detected (NotDetected); Influenza B PCR Not Detected (NotDetected); Mycoplasma pneumoniae PCR Not Detected (NotDetected); Parainfluenza Virus 1 PCR Not Detected (NotDetected); Parainfluenza Virus 2 PCR Not Detected (NotDetected); Parainfluenza Virus 3 PCR Not Detected (NotDetected); Parainfluenza Virus 4 PCR Not Detected (NotDetected); Respiratory Syncytial VirusPCR Not Detected (NotDetected); Rhinovirus/Enterovirus PCR Not Detected (NotDetected)
[2024-08-01] MEDS ORDERED: DAPTOmycin 750 MG in SYRINGE 0 ML IV SCH (10:00)
[2024-08-01] MEDS ORDERED: GLUCAGON FOR INJ 1 MG VIAL SQ PRN (10:24)
[2024-08-01] MEDS ORDERED: GLUCOSE 10 TAB/TUBE PO PRN (10:24)
[2024-08-01] MEDS ORDERED: DEXTROSE 50% 50 ML SYRINGE IV PRN (10:24)
[2024-08-01] MEDS ORDERED: GLUCOSE 40% GEL 15 GM TUBE PO PRN (10:24)
[2024-08-01] MEDS ORDERED: CARBOHYDRATES FOR HYPOGLYCEMIA PO PRN (10:24)
--- NOTE | 2024-08-01 10:24 | History & Physical Report ---
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 Acute metabolic encephalopathy In setting of UTI, hyponatremia as discussed below Less oriented to situation than she typically is, still A&O x 3 Expect improvement with abx, lyte correction Complicated UTI Chronic indwelling gandara 2/2 non-healing L buttocks pressure ulcer UA abnormal, sample redrawn after gandara exchanged, culture pending H/o MRSA in urine previously, last in 2022 Continue empiric Rocephin, Dapto Hyponatremia Na 123 today Baseline Na within normal range Reports significant water intake over the last few days with urinary sx Serum osm and urine osm low - consistent with polydipsia Repeat BMP around noontime with increased Na from 123 to 129 Goal to correct no more than 8-10 mmol within 24 hour period Repeat BMP this afternoon - may have to consider free water if correcting too quickly Hold diuretics for now Pressure ulcer left buttock Has been present for years, undergone HBO and wound vac in the past Recently seen by [facility] wound care/orthopedic service who changed regimen to iodoform packing 2 inch strip gauze change daily with home health/daughters (last changed yesterday @ noon) Due to see plastic surgery at beginning of August Wound does not appear infected Wound care nurse consulted for packing Turn and reposition Type 2 diabetes mellitus Morbid obesity with BMI over 40 Recent weight loss on Ozempic with A1c of 4.8 in Jun 2024 Metformin reduced to daily - hold SSI while in-patient BSG AC HS HFpEF Aortic stenosis Appears euvolemic, continue lopressor BID, holding diuretics as above given hypoNa GALICIA Cirrhosis Appears compensated, diuretics as above DVT Ppx: SQ lovenox Code status: FULL PCP: Gloria Dispo: admitted to PCU Patient seen in collaboration with Dr. Garcia. Please see addendum. I spent a total of 75 minutes coordinating, documenting, and providing care for this patient excluding time spent in the performance of separately billed services or time spent by another provider/QHP. History of Present Illness Chief Complaint: Confusion Primary Care Provider: Christopher Castro MD This is a 64-year-old female with PMH of type 2 diabetes, HFpEF, history of esophageal varices without bleeding, GALICIA, aortic valve stenosis, CKD 3, hereditary hemochromatosis, pressure injury of left buttock following with wound care/orthopedic service at [facility], chronic indwelling Gandara catheter and other medical problems listed below who presents from home with urinary symptoms and confusion. Patient endorsing darker urine with foul odor over the past week. Says she "chugged a bunch of water" this morning when she knows she need to be seen for her urinary symptoms. Has not taken any medications today. Noted to be more confused than usual by daughter in the ED, which seems to be new. Requiring more re-orientation than she typically does and was asking the same question multiple times, which is not typical for her. Denies any fever or chills. No nasal congestion, chest pain, shortness of breath, nausea, vomiting, abdominal pain, diarrhea or constipation. Has had an indwelling Gandara for the past few years due to nonhealing wound on buttocks and has grown MRSA in the past. Patient lives with and ambulates with walker at baseline. Recently referred to [facility] orthopedic/wound service with plans to see plastic surgery at the beginning of August. No longer undergoing HBO therapy. When seen by wound care physician in May 2024, regimen was switched to iodoform packing 2 inch strip gauze change daily with home health/ daughters. Packing last changed yesterday around lunch. Allergies Allergy/AdvReac Type Severity Reaction Status Date / Time No Known Allergies Allergy Verified 08/01/24 08:36 Home Medications Medication Instructions Recorded Confirmed Type blood sugar diagnostic (HireWheeluch #50 ea 04/14/22 01/31/24 Rx Ultra Test strips) blood-glucose meter (Digital Reasoning #1 ea 04/14/22 01/31/24 Rx Ultra2 Meter) lancets 33 gauge (OneTouch Delica #100 ea 04/14/22 01/31/24 Rx Lancets) acetaminophen 325 mg capsule 325 mg PO Q6H PRN fever or pain 05/12/22 08/01/24 Rx (Tylenol) #30 caps metoprolol tartrate 25 mg tablet 25 mg PO BID #60 tabs 05/12/22 08/01/24 Rx potassium chloride 20 mEq 20 meq PO QAM #30 tabs 05/12/22 08/01/24 Rx tablet,extended release(part/cryst) melatonin 5 mg tablet 5 mg PO HS 07/03/22 08/01/24 History metformin 500 mg tablet,extended 500 mg PO DAILY 07/03/22 08/01/24 History release 24 hr multivitamin 1 tab PO DAILY 07/03/22 08/01/24 History nystatin 100,000 unit/gram topical 1 applic topical BID PRN Rash 07/03/22 08/01/24 History powder Saccharomyces boulardii 250 mg 250 mg PO DAILY #30 caps 07/16/22 08/01/24 Rx capsule (Florastor) furosemide 20 mg tablet (Lasix) 20 mg PO QAM 01/04/23 08/01/24 History semaglutide 2 mg/dose (8 mg/3 mL) 2 mg subcut WK 08/01/24 08/01/24 History subcutaneous pen injector (Ozempic) spironolactone 50 mg tablet 50 mg PO QAM 08/01/24 08/01/24 History Past Med/Surg History Problem List (Updated 08/01/24 @ 14:54 by Jameel Stubbs MD) Hyponatremia (Acute) Complicated UTI (urinary tract infection) Acute metabolic encephalopathy Hyponatremia Wound of left ankle Aortic valve endocarditis Stage III pressure ulcer of left ankle (Acute) 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 Type 2 diabetes mellitus Peripheral arterial disease Wound of left buttock wound vac in place currently Ambulatory dysfunction (Acute) uses a walker Generalized weakness (Acute) Pressure ulcers of skin of multiple topographic sites wound vac in place on buttocks currently Urinary retention Aortic stenosis FRIDA 1.1cm2 04/04/22 Chronic diastolic CHF (congestive heart failure) Cirrhosis MSSA bacteremia hx 03/2022 Medical History (Updated 08/01/24 @ 14:54 by Jameel Stubbs MD) Morbid obesity with BMI of 40.0-44.9, adult Hemochromatosis Liver cirrhosis secondary to GALICIA (HFpEF) heart failure with preserved ejection fraction Pressure ulcer of left buttock Hx MRSA infection within the last 10 months, it has been dx in wounds, blood, and urine; most recently found in urine in 11/2022. Hx of transesophageal echocardiography (JILLIAN) for monitoring Gandara catheter in place Surgical History History of cataract surgery History of esophagogastroduodenoscopy (EGD) History of ankle surgery lt ankle arthotomy with I&D Hx of arthroscopy of left knee Hx of tooth extraction has dentures Family History Other Family history non-contributory Social History Smoking Status: Never smoker Second Hand Exposure: Yes (hx- used to smoke); Do You Dip or Chew Tobacco: No; Hx Alcohol Use: No Hx Substance Use: No Preferred Language: Dutch Communication Ability: Effective Wax Coating Machine Tender Required: No Beliefs That Will Affect Care: None marital status: Current Living Situation: Spouse Current Living Situation Comment: one story set up, 1 step to enter How many Children do You have: 1 Feels Safe at Home: Yes Assistive Devices: Denture - Upper, Denture - Lower and Walker Review of Systems Review of Systems: At least ten systems reviewed and negative except as noted in the HPI. Physical Exam Physical Exam: General Appearance: WD/WN, vitals as above, NAD, sitting up in bed, pleasant, obese Head: normocephalic, atraumatic Eyes: normal inspection, PERRL, conjunctivae normal, anicteric sclerae ENT: external ear and nose normal, oropharynx normal Neck: normal visual inspection, trachea midline, no thyromegaly Respiratory: normal respiratory effort, lungs clear to auscultation. No accessory muscle use Cardiovascular: regular rate, rhythm, + systolic murmur, normal peripheral pulses, no BLE edema. Vessels: no JVD Chest: normal inspection of chest Abdomen/GI: normal bowel sounds, soft, nontender, no hepatosplenomegaly : + Gandara Extremities/Musculoskeletal: no cyanosis or clubbing, extremities motor strength 5/5 Neurologic: PERRL, EOMI, accommodation nl, no face palsy, no dysarthria, CN's II-XI intact bilaterally and moves all extremities Psychiatric: A+Ox3 but requiring frequent re-orientation Skin: no rashes, normal color, warm/dry. + L buttocks with chronic wound with packing, no surrounding erythema or drainage noted Results & Data Results & Data Vital Signs (Past 12 Hours) Vital Signs Temp Pulse Pulse Resp BP BP Pulse Ox 08/01/24 09:06 103 H 22 08/01/24 09:01 113/69 08/01/24 09:01 113/69 08/01/24 08:51 111 H 17 08/01/24 08:30 102 H 20 08/01/24 08:03 101 H 08/01/24 08:00 128/86 08/01/24 08:00 128/86 08/01/24 07:54 101 H 20 08/01/24 07:51 101 H 08/01/24 07:03 101 H 14 100 08/01/24 07:00 108/69 08/01/24 07:00 108/69 08/01/24 07:00 108/69 08/01/24 06:30 98 H 17 136/90 100 08/01/24 06:22 98 H 08/01/24 06:00 96 H 20 144/91 H 100 08/01/24 05:03 97 H 20 100 08/01/24 05:03 97 H 20 154/96 H 100 08/01/24 04:53 36.4 C L 99 H 132/83 99 O2 Del Method 08/01/24 09:06 08/01/24 09:01 08/01/24 09:01 08/01/24 08:51 08/01/24 08:30 08/01/24 08:03 08/01/24 08:00 08/01/24 08:00 08/01/24 07:54 08/01/24 07:51 08/01/24 07:03 08/01/24 07:00 08/01/24 07:00 08/01/24 07:00 08/01/24 06:30 Room Air 08/01/24 06:22 08/01/24 06:00 Room Air 08/01/24 05:03 Room Air 08/01/24 05:03 Room Air 08/01/24 04:53 Room Air Laboratory Results Short CBC 08/01/24 Range/Units 05:34 WBC 9.17 (4.8-10.8) K/ul Hgb 11.6 L (12.0-16.0) g/dl Hct 31.7 L (37.0-47.0) % Plt Count 205 (130-400) K/uL BMP 08/01/24 05:34 Sodium 123 L Potassium 4.3 Chloride 91 L Carbon Dioxide 25 BUN 11 Creatinine 0.88 Glucose 84 Calcium 9.1 Liver Function 08/01/24 Range/Units 05:34 Total Bilirubin 0.8 (0.2-1.0) mg/dl AST 19 (13-39) U/L ALT 12 (7-52) U/L Alkaline Phosphatase 84 (34-104) U/L Albumin 3.9 (3.4-5.0) gm/dl Urine 08/01/24 Range/Units 05:34 Urine Color Yellow Urine Appearance Clear (Clear) Urine pH 6.5 (4.5-7.5) Ur Specific Eleele 1.004 (1.000-1.030) Urine Protein Trace H (Negative) Urine Glucose (UA) Negative (Negative) Diagnostic Findings Chest X-Ray 08/01/24 10:53 XR chest 1V portable CLINICAL HISTORY: admission COMPARISON STUDY: 07/16/2022 FINDINGS: Stable mild cardiomegaly without pulmonary vascular congestion. No effusion, consolidation, or pneumothorax. IMPRESSION: No acute findings. ACT 112: Negative or not required by law. Electronically signed by: Daren Oliva M.D. 08/01/2024 11:05 AM Code Status & VTE Plan VTE Prophylaxis Plan VTE Prophylaxis will be ordered: Yes Supervising Physician Co-Signing Physician Notes Attending Addendum: Case reviewed with the advanced practitioner. I have personally performed a history and physical examination on the patient. I have reviewed the advanced practitioner's documentation on the date of service referenced in note, and I agree with, and take responsibility for the plan of care. please refer to her notes for full details patient seen and examined, records reviewed by myself as well on exam, patient seen resting in bed, awake, alert, oriented x 1-2 trying to answer questions, mostly appropriate but patient's daughter this is not her baseline mental status no other symptoms VS noted and reviewed oriented x1-2, not in distress, speaks in sentences with no effort nor accessory muscle use normal rate, regular rhythm, no murmurs clear breath sounds bilaterally non distended, soft, nontender no bipedal edema, erythema, warmth r buttock- exam not optimal as patient was standing, wound seen, no surrounding erythema/edema/tenderness no neuro deficits all labs, imaging noted and reviewed ASSESSMENT AND PLAN> ACUTE METABOLIC ENCEPHALOPATHY LIKELY SECONDARY TO CATHETER ASSOCIATED UTI, R/O BACTEREMIA RECENT MRSA UTI ff up cultures empiric Dapto + Ceftri Gandara cath exchange done at the ER HYPONATREMIA likely from excessive water intake Na 123 at 530am, 129 at 12 noon, 129 at 4pm, repeat Na at 9pm resume usual diuretics CHRONIC RIGHT BUTTOCK WOUND no signs of infection Wound Care consult other diagnoses and plan of care as per advanced practitioner's notes I spent a total of 35 minutes coordinating, documenting, and providing care for this patient, excluding time spent in the performance of separately billed services or time spent by another provider/QHP. Maikel Garcia MD
[2024-08-01] MEDS: cefTRIAXone SODIUM 2,000 MG/50 ML BAG IV STA (10:28)
[2024-08-01 11:03] LABS: Appearance Urine Clear (Clear); Bacteria Urine Automated 3+ (None Seen); Bilirubin Urine Negative (Negative); Blood Urine 3+ (Negative); Color Urine Yellow; Epithelial Cell Urine Auto 0-2 /hpf (0-2); Glucose Urine UA Negative (Negative); Ketones Urine Negative (Negative); Leukocyte Esterase Urine 3+ (Negative); Nitrite Urine Negative (Negative); Protein Urine Negative (Negative); RBC Urine Automated 0-2 /hpf (0-2); Specific Gravity Urine 1.002 (1.000-1.030); Urobilinogen Urine Negative (Negative); pH Urine 7.5 (4.5-7.5)
--- NOTE | 2024-08-01 11:06 | XRay Report ---
XR chest 1V portable CLINICAL HISTORY: admission COMPARISON STUDY: 07/16/2022 FINDINGS: Stable mild cardiomegaly without pulmonary vascular congestion. No effusion, consolidation, or pneumothorax. IMPRESSION: No acute findings. ACT 112: Negative or not required by law. Electronically signed by: Daren Oliva M.D. 08/01/2024 11:05 AM
[2024-08-01] MEDS ORDERED: POLYETHYLENE (MIRALAX) 17 GM PACK PO PRN (11:10)
[2024-08-01] MEDS ORDERED: ACETAMINOPHEN 325 MG TAB PO PRN (11:10)
[2024-08-01] MEDS ORDERED: ONDANSETRON INJ 2 MG/ML 2 ML VIAL IV PRN (11:10)
[2024-08-01] MEDS: INSULIN ASPART PER UNIT CHARGE SC SCH (11:45)
[2024-08-01] MEDS: DAPTOmycin 525 MG in SYRINGE 0 ML IV STA (11:53)
[2024-08-01] MEDS: ENOXAPARIN INJ 40 MG/0.4 ML SYR SQ SCH (11:53)
[2024-08-01] MEDS ORDERED: ENOXAPARIN INJ 40 MG/0.4 ML SYR SQ SCH (12:00)
[2024-08-01 12:35] LABS: BUN Creatinine Ratio 14.3 (10-20); Calcium 8.9 mg/dl (8.6-10.3); Potassium 4.5 mmol/L (3.5-5.1)
[2024-08-01] MEDS: METOPROLOL TARTRATE 25 MG TAB PO SCH (13:46)
[2024-08-01 16:04] LABS: BUN Creatinine Ratio 12.1 (10-20); Calcium 9.3 mg/dl (8.6-10.3); Creatinine Clr Calc Pharmacy 74.4 ml/min; Potassium 3.8 mmol/L (3.5-5.1)
--- NOTE | 2024-08-01 18:17 | CT Scan Report ---
Clinical History: Confusion Comparison is made to the prior CT dated 04/04/2022 Technique: Axial computed tomography images were obtained of the brain without intravenous contrast. Findings: There is mild cerebral atrophy, within expected limits for the patient's age. Areas of decreased attenuation are seen within the periventricular white matter, likely representing chronic small vessel ischemic disease. There is no definite sign of acute or old infarction. No intracranial hemorrhage is evident. No definite mass lesion is seen on this noncontrast examination. There is no midline shift or other form of herniation. No hydrocephalus is seen. No fracture is identified. The orbits and the visualized paranasal sinuses appear unremarkable. The mastoid air cells appear clear. Impression: 1. Cerebral atrophy and chronic small vessel ischemic disease 2. Otherwise unremarkable noncontrast CT of the brain Electronically signed by Felice Peres 08-01-2024 6:17 PM
--- OUTSIDE RECORDS SUMMARY | 2024-08-01 20:37 | External Medical Summary | Summary of Care ---
Author Name Unknown Organization [facility] Address [address] [place] [address] Phone [phone] Care Team Providers Care Dialysis Equipment Technician Name Role Phone Christopher Castro MD Primary Care Provider [phone] Encounter Details Date Type Department Care Team (Late st Contact Info) Description 07/25/2024 Orders Only PATIENT PORTAL DO NOT DELETE THIS DEPT USED BY [facility] [place] [id number] Allergies No known active allergiesdocumented as of this encounter (statuses as of 07/25/2024) Medications Loperamide HCl 2 MG Oral Capsule (Imodium) Take 1 Capsule by mouth 4 times a day as needed for Diarrhea. Active Melatonin 5 MG Oral Capsule Take 1 Capsule by mouth at bedtime. Active Womens 50+ Multi Vitamin/Min Oral Tablet Take by mouth daily. Active Nystatin [id number] UNIT/GM External Powder (Nystop) Apply topically to affected area 2 times a day as needed (rash). 60 g 3 3 Active Artificial Tears Ophthalmic Solution Instill into eye. Active Ozempic (2 MG/DOSE) 8 MG/3ML Subcutaneous Solution Pen-injector (Semaglutide (2 MG/DOSE))Indicat ions:Type 2 diabetes mellitus with hemoglobin A1c goal of less than 7.0% (HCC) Inject 2 mg under the skin once a week. Dose increase 9 mL 4 4 Active Dakins (1/2 strength) 0.25 % External Solution Apply topically to affected area daily. 1/2 Strength Dakin's Solution moistened gauze packing to buttock wound - changed daily. 473 mL 1 4 Active Additional Information Patient not taking.Reported on 07/23/2024 Curity Iodoform Packing Strip Iodoform packing 2 inches strip gauze buttock wound - changed daily. 1 Each 5 5 08/12/19 25 Active metFORMIN HCl ER 500 MG Oral Tablet Extended Release 24 Hour (Glucophage XR)Indications:T ype 2 diabetes mellitus with hemoglobin A1c goal of less than 7.0% (HCC) Take 1 Tablet by mouth in the morning. 90 Tablet 3 5 Active Spironolactone 50 MG Oral Tablet (Aldactone) Take 1 Tablet by mouth in the morning. 90 Tablet 3 5 Active Potassium Chloride Akiko ER 20 MEQ Oral Tablet Extended Release Take 1 Tablet by mouth in the morning. 90 Tablet 3 5 Active Metoprolol Tartrate 25 MG Oral Tablet (Lopressor)Indic ations:Aortic valve stenosis, etiology of cardiac valve disease unspecified Take 1 Tablet by mouth in the morning and 1 Tablet before bedtime. 90 Tablet 3 5 Active Furosemide 20 MG Oral Tablet (Lasix) Take 1 Tablet by mouth in the morning. 90 Tablet 3 5 Active documented as of this encounter (statuses as of 07/25/2024) Active Problems Problem Noted Date Diagnosed Date Type 2 diabetes mellitus wit h hemoglobin A1c goal of less than 7.0% 07/29/2023 Pressure injury of left buttock, unstageable Body mass index (BMI) of 50.0 to 59.9 in adult 0 07/25/2023 Body mass index (BMI) of 40.0 to 44.9 in adult 1 Overview: Per Obesity protocol - Per Obesity protocol Chronic kidney disease, stage 3a 01/10/2023 Overview: Per CKD protocol Chronic heart failure with preserved ejection fr action 10/27/2022 Hereditary hemochromatosis 10/08/2022 Aortic valve stenosis 06/17/2022 Chronic diastolic congestive heart failure 06/17 GALICIA (nonalcoholic steatohepatitis) 06/17/2022 Esophageal varices without bleeding 06/17/2022 documented as of this encounter (statuses as of 07/25/2024) Resolved Problems Problem Noted Date Diagnosed Date Resolved Date Prediabetes 07/29/2023 07/29/2023 Body mass index (BMI) of 50. 0 to 59.9 in adult 08/09/2022 03/10/2023 Overview: Per Obesity protocol DM type 2 with diabetic chronic skin ulcer 06/17/2022 07/25/2023 Obesity, morbid (more than 1 00 lbs over ideal weight or BMI > 40) 06/17/2022 08/11/2022 Overview: Per Obesity protocol documented as of this encounter (statuses as of 07/25/2024) Immunizations Name Administration Dates Next Due COVID-19 mRNA, LNP-s, No Pre serve, 2-Dose Series (Itandi) 06/01/2021,09/06/2020,08/16/2020 COVID-19, MRNA-LNP, PF, 30 M CG/0.3 mL, 12 YRS AND ABOVE, IM ([facility]) 03/21/2023 Covid-19, Mrna, Lnp-s, Pf, B ivalent, 10 Mcg, IM, 5-11 yrs (Pfizer) 05/18/2022 HEP A - Hepatitis A (Adult > 18 yrs) 02/28/2023 HEPATITIS B VACCINE, RECOMB, 20 MCG/ML, ADULT (HEPLISAV-B) 09/07/2023,02/28/2023 Pneumococcal Conjugate Vacci ne, 20-valent ([id number]) 02/28/2023 Seasonal Influenza, PF, 6 M & above, IM , (FluLaval or Fluzone) 03/14/2023,04/16/2022 Seasonal Influenza, Trivalen t, (IIV3), PF, (Fluzone) 02/23/2024 TDAP (age 10 and older)(Boostrix) 07/25/2023 Zoster Vaccine Recombinant (Shingrix) 09/30/2023 ,07/29/2023 documented as of this encounter Social History Tobacco Use Types Packs/Day Years Used Date Smoking Tobacco: Never Smokeless Tobacco: Never Alcohol Use Standard Drinks/Week Comments Never 0 (1 standard drink = 0.6 oz pur e alcohol) PHQ-2 Answer Date Recorded PHQ Adult Total Score 0 01/20/2024 Comments No Sex and Gender Information Value Date Recorded Sex Assigned at Not on file Legal Sex Female 5:26 AM EST Gender Identity Not on file Sexual Orientation Not on file documented as of this encounter Plan of Treatment Upcoming Encounters Date Type Department Care Team (Late st Contact Info) Description 08/01/2024 8:30 AM EST Office Visit Wound Care, [place] [address] [place] [address] Clementina Carlos MD [facility] [address] 08/20/2024 8:15 AM EDT Cardiac Studies Cardiac Studies, [facility] [address] [place] [address] 08/27/2024 8:00 AM EDT Office Visit Cardiology, [facility] [address] [place] [address] Luciana Jalloh CRNP [address] [place] [address] 09/05/2024 9:00 AM EDT Office Visit Plastic Surgery, [place] [address] [place] [address] Ricky Araiza MD [address] [place] [address] 09/05/2024 10:00 AM EDT Office Visit Wound Care, [place] [address] [place] [address] Clementina Carlos MD [facility] [place] [id number] 01/21/2025 2:00 PM EDT Office Visit [facility] [address] [place] [phone] Christopher Castro MD [address] [place] [id number] Scheduled Procedures Name Priority Associated Diagnoses Date/Ti me ESOPHAGOGASTRODUODENOSCOPY ( EGD), FLEXIBLE, TRANSORAL, DIAGNOSTIC Recall Esophageal varices (HCC) Health Maintenance Due Date Last Done Comments Albumin/Creatinine Ratio 1978 Pap Smear 1981 Cervical Cancer Screening 1990 HPV/Co-Test 1990 Mammogram 2000 Cologuard 2005 Colonoscopy 2005 Colorectal Cancer Screening 2005 Fecal Occult Blood Test 2005 Sigmoidoscopy 2005 COVID-19 Vaccine ( season) 2024 03/21/2023, 05/18/2022, 05/18/2022, Additional history exists Diabetic Eye Exam 12/05/2024 12/06/2023, , 02/07/2023 GFR 01/13/2025 07/16/2024, 11/0 08/2023, 11/01/2023, Additional history exists HbA1c 01/13/2025 07/16/2024, 06/0 08/2023, 07/25/2023, Additional history exists Depression Screening 01/19/2025 01/20/2024 Diabetic Foot Exam 01/19/2025 Postponed from 1978 (Patient Declined After Education) HIV Screening 01/19/2025 Postponed from 1975 (Patient Declined After Education) CKD HGB USE SMARTSET 42377 07/16/202507/16, 07/16/2024, 04/02/2024, Additional history exists CKD PHOS USE SMARTSET [id number] 07/16/2025 07/16/2024 Lipid Panel 07/16/2029 07/16/2024, 07/01, 06/11/2022 DTap/Tdap Vaccines (2 - Td or Tdap) 07/25/2033 07/25/2023 Pneumococcal Vaccine: 50+ Years Completed 02/28/2023 Hepatitis B Vaccine Completed 09/07/2023, Zoster Vaccines Completed 09/30/2023, 07/29/2023 Influenza Vaccine (FLU shot) Completed 02/23/2024, 03/14/2023, 04/16/2022 HPV (Gardasil) Vaccine Aged Out No lo nger eligible based on patient's age to complete this topic MENINGOCOCCAL (MENACTRA/MENVEO) Aged Out No longer eligible based on patient's age to complete this topic Meningitis B Vaccine (Bexsero/Trumemba) Aged Out No longer eligible based on patient's age to complete this topic documented as of this encounter Medical Devices Not on filedocumented as of this encounter Care Teams Dialysis Equipment Technician Relationship Specialty Start Date End Date Christopher Castro MD [address] [facility] [place] [address] PCP - General Family Medicine 04/14/22 documented as of this encounter
--- OUTSIDE RECORDS SUMMARY | 2024-08-01 20:37 | External Medical Summary | Summary of Care ---
Author Name Unknown Organization [facility] Address [address] [place] [address] Phone [phone] Care Team Providers Care Collection Systems Administrator Name Role Phone Christopher Castro MD Primary Care Provider [phone] Reason for Visit * Reason Onset Date Comments Test Results Lab 07/17/2024 Encounter Details Date Type Department Care Team (Late st Contact Info) Description 07/17/2024 Telephone Hepatology, [facility] [address] [place] [address] Mariel Somers DO [address] [place] [address] Test Results Lab Allergies No known active allergiesdocumented as of this encounter (statuses as of 07/17/2024) Medications Loperamide HCl 2 MG Oral Capsule (Imodium) Take 1 Capsule by mouth 4 times a day as needed for Diarrhea. Active Melatonin 5 MG Oral Capsule Take 1 Capsule by mouth at bedtime. Active Womens 50+ Multi Vitamin/Min Oral Tablet Take by mouth daily. Active Nystatin 782628 UNIT/GM External Powder (Nystop) Apply topically to affected area 2 times a day as needed (rash). 60 g 3 3 Active Potassium Chloride Akiko ER 20 MEQ Oral Tablet Extended Release TAKE 1 TABLET BY MOUTH ONCE DAILY IN THE MORNING 90 Tablet 3 4 Active Furosemide 20 MG Oral Tablet (Lasix) TAKE 1 TABLET BY MOUTH IN THE MORNING 90 Tablet 3 4 Active Metoprolol Tartrate 25 MG Oral Tablet (Lopressor)Indica tions:Aortic valve stenosis, etiology of cardiac valve disease unspecified Take 1 Tablet by mouth in the morning and 1 Tablet before bedtime. 180 Tablet 3 4 Active metFORMIN HCl ER 500 MG Oral Tablet Extended Release 24 Hour (Glucophage XR)Indications:Ty pe 2 diabetes mellitus with hemoglobin A1c goal of less than 7.0% (HCC) Take 1 Tablet by mouth 2 times a day with morning and evening meals. 180 Tablet 3 4 Active Artificial Tears Ophthalmic Solution Instill into eye. Active Ozempic (2 MG/DOSE) 8 MG/3ML Subcutaneous Solution Pen-injector (Semaglutide (2 MG/DOSE))Indicati ons:Type 2 diabetes mellitus with hemoglobin A1c goal of less than 7.0% (HCC) Inject 2 mg under the skin once a week. Dose increase 9 mL 4 4 Active Dakins (1/2 strength) 0.25 % External Solution Apply topically to affected area daily. 1/2 Strength Dakin's Solution moistened gauze packing to buttock wound - changed daily. 473 mL 1 4 Active Spironolactone 50 MG Oral Tablet (Aldactone) TAKE 1 TABLET BY MOUTH IN THE MORNING 90 Tablet 4 Active Curity Iodoform Packing Strip Iodoform packing 2 inches strip gauze buttock wound - changed daily. 1 Each 5 5 08/12/19 25 Active documented as of this encounter (statuses as of 07/17/2024) Active Problems Problem Noted Date Diagnosed Date [...] as of this encounter (statuses as of 07/17/2024) Resolved Problems Problem Noted Date Diagnosed Date [...] as of this encounter (statuses as of 07/17/2024) Immunizations Name Administration Dates Next Due COVID-19 mRNA, LNP-s, No Pre serve, 2-Dose Series ([employer]) 06/01/2021,09/06/2020,08/16/2020 COVID-19, MRNA-LNP, PF, 30 M CG/0.3 mL, 12 YRS AND ABOVE, IM (P[employer]ER-Comirnaty) 03/21/2023 Covid-19, Mrna, Lnp-s, Pf, B ivalent, 10 Mcg, IM, 5-11 yrs (Pfizer) 05/18/2022 HEP A - Hepatitis A (Adult > 18 yrs) 02/28/2023 HEPATITIS B VACCINE, RECOMB, 20 MCG/ML, ADULT (HEPLISAV-B) 09/07/2023,02/28/2023 Pneumococcal Conjugate Vacci ne, 20-valent ([id number]) 02/28/2023 Seasonal Influenza, PF, 6 M & [...] on file documented as of this encounter Miscellaneous Notes * Telephone Encounter - Blossom La LPN - 07/17/2024 11:37 AM EST Pt is aware of results * Telephone Encounter - Mariel Somers DO - 07/17/2024 11:13 AM EST Please let patient know recent labs reviewed. Ferritin is 100. No need for phlebotomy right now. Repeat labs again in 3 months. Mariel Somers DO documented in this encounter Plan of Treatment Upcoming Encounters Date Type Department Care Team (Late st Contact Info) Description 07/23/2024 2:20 PM EST Office Visit [facility] Rony Cabezas [address] [place] [place] [address] Christopher Castro MD [address] [place] [address] 08/01/2024 8:30 AM EST Office Visit [address] [place] [address] Clementina Carlos MD [address] [place] [address] 08/20/2024 8:15 AM EDT Cardiac Studies Cardiac Studies, [facility] [address] [place] [address] 08/27/2024 8:00 AM EDT Office Visit Cardiology, [facility] [address] [place] [address] Luciana Jalloh CRNP [address] [place] [address] 09/05/2024 9:00 AM EDT Office Visit Plastic Surgery, [place] [address] [place] [address] Ricky Araiza MD [address] [place] [address] 09/05/2024 10:00 AM EDT Office Visit Wound Care, [place] [address] [place] [address] Clementina Carlos MD [address] [place] [address] Scheduled Procedures Name Priority Associated Diagnoses Date/Ti [...] 12/05/2024 12/06/2023, , 02/07/2023 GFR 01/13/2025 07/16/2024, 08/2023, 11/01/2023, Additional history exists HbA1c 01/13/2025 07/16/2024, 08/2023, 07/25/2023, Additional history exists Depression Screening 01/19/2025 01/20/2024 Diabetic Foot Exam 01/19/2025 Postponed from 1978 (Patient Declined After Education) HIV Screening 01/19/2025 Postponed from 1975 (Patient Declined After Education) CKD HGB USE SMARTSET 51776 07/16/202507/16, 07/16/2024, 04/02/2024, Additional history exists CKD PHOS USE SMARTSET 18370 07/16/2025 07/16/2024 Lipid Panel 07/16/2029 07/16/2024, 07/01, [...] filedocumented as of this encounter Care Teams Collection Systems Administrator Relationship Specialty Start Date End Date Christopher Castro MD PCP - General Family Medicine 04/14/22 documented as of this encounter
--- OUTSIDE RECORDS SUMMARY | 2024-08-01 20:37 | External Medical Summary ---
Author Name Unknown Address Unknown Organization K01[place] [place] [address] [place] [address] Laboratory Report Ordering Provider Test Date Status LUIS FERNANDEZ 07/16/2024 08:20:37 Final Observation Date Value Abnormality Reference (Units ) Status HbA1C 07/16/2024 08:20:37 4.8 4.0-5.6 (% ) Final The use of HbA1c to monitor glycemic status is based on normal hemoglobin and HbA composition. This test should not be used in patients with abnormal hemoglobin that affects the half life of the red blood cell or the in vivo glycation rates. Glucose, estimated average 07/16/2024 08:20:37 91 <126 (mg/dL) Final Performing Location LABORATORY [facility] - [address] [place] [address]
--- OUTSIDE RECORDS SUMMARY | 2024-08-01 20:37 | External Medical Summary ---
Author Name Unknown Address Unknown Organization K01:[facility]ATORY [facility] - [address] [place] [address] Laboratory Report Ordering Provider Test Date Status CONY FERNANDEZJENAE 07/16/2024 08:20:37 Final Observation Date Value Abnormality Reference (Units ) Status Phosphate 07/16/2024 08:20:37 3.7 2.5-4.8 (m g/dL) Final Performing Location [facility] - [address] [place] [address]
--- OUTSIDE RECORDS SUMMARY | 2024-08-01 20:37 | External Medical Summary ---
Author Name Unknown Address Unknown Organization K01:[facility] - [address] [place] [address] Laboratory Report Ordering Provider Test Date Status SANDRA CHAVEZ 07/16/2024 08:20:37 Final Observation Date Value Abnormality Reference (Units ) Status Albumin 07/16/2024 08:20:37 4.0 3.8-5.0 (g/dL) Final AST (Aspartate aminotransferase) 07/16/2024 08:20:37 19 10-35 (U/L) Final Alk Phos 07/16/2024 08:20:37 108 35-130 (U/L) Final ALT (Alanine aminotransferase) 07/16/2024 08:20:37 20 10-35 (U/L) Final Bilirubin, Total 07/16/2024 08:20:37 0.5 <=1.2 (mg/dL) Final Bilirubin, Direct 07/16/2024 08:20:37 0.2 0.0-0.3 (mg/dL) Final Protein 07/16/2024 08:20:37 7.0 6.0-8.3 (g/dL) Final Performing Location LABORATORY [facility] - [address] [place] [address]
--- OUTSIDE RECORDS SUMMARY | 2024-08-01 20:37 | External Medical Summary | Summary of Care ---
Author Name Unknown Organization [facility] Address [address] [place] [address] Phone [phone] Care Team Providers Care Paper Latcher Name Role Phone Christopher Castro MD Primary Care Provider [phone] Reason for Visit * Reason Comments Follow Up Patient is here toda y for a follow up visit Patient states no concerns. Encounter Details Date Type Department Care Team (Late st Contact Info) Description 07/23/2024 2:20 PM EST Office [facility] [address] [phone] Christopher Castro MD [address] [facility] [place] [id number] Pressure injury of left buttock, unstageable (HCC)*; Chronic diastolic congestive heart failure (HCC); Body mass index (BMI) of 50.0 to 59.9 in adult (HCC); Type 2 diabetes mellitus with hemoglobin A1c goal of less than 7.0% ([facility]); Chronic kidney disease, stage 3a ([facility]); Esophageal varices without bleeding, unspecified esophageal varices type (HCC); Aortic valve stenosis, etiology of cardiac valve disease unspecified Allergies No known active allergiesdocumented as of this encounter (statuses as of 07/24/2024) Medications Loperamide HCl 2 MG Oral Capsule (Imodium) Take 1 Capsule by mouth 4 times a day as needed for Diarrhea. Active Melatonin 5 MG Oral Capsule Take 1 Capsule by mouth at bedtime. Active Womens 50+ Multi Vitamin/Min Oral Tablet Take by mouth daily. Active Nystatin 476180 UNIT/GM External Powder (Nystop) Apply topically to affected area 2 times a day as needed (rash). 60 g 3 06/16/19 23 Active Artificial Tears Ophthalmic Solution Instill into eye. Active Ozempic (2 MG/DOSE) 8 MG/3ML Subcutaneous Solution Pen-injector (Semaglutide (2 MG/DOSE))Indicat ions:Type 2 diabetes mellitus with hemoglobin A1c goal of less than 7.0% (HCC) Inject 2 mg under the skin once a week. Dose increase 9 mL 4 01/23/20 24 Active Dakins (1/2 strength) 0.25 % External Solution Apply topically to affected area daily. 1/2 Strength Dakin's Solution moistened gauze packing to buttock wound - changed daily. 473 mL 1 02/01/20 24 Active Additional Information Patient not taking.Reported on 07/23/2024 Curity Iodoform Packing Strip Iodoform packing 2 inches strip gauze buttock wound - changed daily. 1 Each 5 06/13/19 25 025 Active metFORMIN HCl ER 500 MG Oral Tablet Extended Release 24 Hour (Glucophage XR)Indications:T ype 2 diabetes mellitus with hemoglobin A1c goal of less than 7.0% (HCC) Take 1 Tablet by mouth in the morning. 90 Tablet 07/23/19 25 Active Spironolactone 50 MG Oral Tablet (Aldactone) Take 1 Tablet by mouth in the morning. 90 Tablet 07/23/19 25 Active Potassium Chloride Akiko ER 20 MEQ Oral Tablet Extended Release Take 1 Tablet by mouth in the morning. 90 Tablet 07/23/19 25 Active Metoprolol Tartrate 25 MG Oral Tablet (Lopressor)Indic ations:Aortic valve stenosis, etiology of cardiac valve disease unspecified Take 1 Tablet by mouth in the morning and 1 Tablet before bedtime. 90 Tablet 07/23/19 25 Active Furosemide 20 MG Oral Tablet (Lasix) Take 1 Tablet by mouth in the morning. 90 Tablet 07/23/19 25 Active Potassium Chloride Akiko ER 20 MEQ Oral Tablet Extended Release TAKE 1 TABLET BY MOUTH ONCE DAILY IN THE MORNING 90 Tablet 3 08/15/19 24 025 Discontin ued(Refil l) Furosemide 20 MG Oral Tablet (Lasix) TAKE 1 TABLET BY MOUTH IN THE MORNING 90 Tablet 3 08/15/19 24 025 Discontin ued(Refil l) Metoprolol Tartrate 25 MG Oral Tablet (Lopressor)Indic ations:Aortic valve stenosis, etiology of cardiac valve disease unspecified Take 1 Tablet by mouth in the morning and 1 Tablet before bedtime. 180 Tablet 3 09/27/19 24 025 Discontin ued(Refil l) metFORMIN HCl ER 500 MG Oral Tablet Extended Release 24 Hour (Glucophage XR)Indications:T ype 2 diabetes mellitus with hemoglobin A1c goal of less than 7.0% (HCC) Take 1 Tablet by mouth 2 times a day with morning and evening meals. 180 Tablet 3 11/21/19 24 025 Discontin ued(Refil l) Spironolactone 50 MG Oral Tablet (Aldactone) TAKE 1 TABLET BY MOUTH IN THE MORNING 90 Tablet 05/13/20 24 025 Discontin ued(Refil l) documented as of this encounter (statuses as of 07/24/2024) Active Problems Problem Noted Date Diagnosed Date [...] as of this encounter (statuses as of 07/24/2024) Resolved Problems Problem Noted Date Diagnosed Date [...] as of this encounter (statuses as of 07/24/2024) Immunizations Name Administration Dates Next Due COVID-19 mRNA, LNP-s, No Pre serve, 2-Dose Series ([employer]) 06/01/2021,09/06/2020,08/16/2020 COVID-19, MRNA-LNP, PF, 30 M CG/0.3 mL, 12 YRS AND ABOVE, IM ([employer]) 03/21/2023 Covid-19, Mrna, Lnp-s, Pf, B ivalent, 10 Mcg, IM, 5-11 yrs (Pfizer) 05/18/2022 HEP A - Hepatitis A (Adult > 18 yrs) 02/28/2023 HEPATITIS B VACCINE, RECOMB, 20 MCG/ML, ADULT (HEPLISAV-B) 09/07/2023,02/28/2023 Pneumococcal Conjugate Vacci ne, 20-valent ([id number]) 02/28/2023 Seasonal Influenza, PF, 6 M & [...] on file documented as of this encounter Last Filed Vital Signs Vital Sign Reading Time Taken Comments Blood Pressure 132/88 07/23/2024 2:07 PM EST Pulse 105 07/23/2024 2:07 PM EST Temperature 36.2 C (97.1 F) 07/23/2024 2:07 PM ES T Respiratory Rate 18 07/23/2024 2:07 PM EST Oxygen Saturation 95% 07/23/2024 2:07 PM EST Inhaled Oxygen Concentration - - Weight 104.3 kg (229 lb 14.4 oz) 07/23/2024 2:07 PM EST Height 160 cm (5' 3") 07/23/2024 2:07 PM EST Body Mass Index 40.72 07/23/2024 2:07 PM EST documented in this encounter Progress Notes * Christopher Castro MD - 07/23/2024 2:31 PM EST Subjective: Phyllis Mccollum is a 64 year old female. Chief Complaint Patient presents with Follow Up Patient is here today for a follow up visit Patient states no concerns. HPI: 64-year-old seen today for routine follow-up. A number of medical problems as included below: Chronic decubitus ulcer persist. She now is scheduled to see Plastic Surgery for possible surgical intervention. She has a indwelling Lozano catheter that is been in place now for about 2 years becauseof the nonhealing decubitus ulcer. She carries a diagnosis of type 2 diabetes but notes when she started Ozempic (now 2 mg per week), her blood sugars improved pretty dramatically. Fasting blood sugars now are right around 100. Last hemoglobin A1c done just a couple weeks ago was 4.8. She also remains on metformin ER 500 mg 1 twice a day She has a history hemochromatosis but of note is she has not required therapeutic phlebotomy in about a year and her most recent ferritin level was 100 so no phlebotomy was ordered. She is to have a repeat ferritin level in 3 months. She has a history of chronic diastolic heart failure. She is on Lasix 20 mg every day and spironolactone 50 mg every day and metoprolol 25 mg twice a day. She has a known history of aortic valve stenosis. She is scheduled to see Cardiology within a few weeks time in his to have a repeat echocardiogram. Overall she is feeling pretty well except frustrated that there has not been more healing of the decubitus ulcer. She has followed at the wound clinic in his had hyperbaric oxygen but all these modalities have not led to a complete resolution Patient Active Problem List Diagnosis Aortic valve stenosis Chronic diastolic congestive heart failure (HCC) GALICIA (nonalcoholic steatohepatitis) Esophageal varices without bleeding ([facility]) Hereditary hemochromatosis ([facility]) Chronic heart failure with preserved ejection fraction ([facility]) Chronic kidney disease, stage 3a ([facility]) Body mass index (BMI) of 40.0 to 44.9 in adult ([facility]) Pressure injury of left buttock, unstageable ([facility]) Body mass index (BMI) of 50.0 to 59.9 in adult ([facility]) Type 2 diabetes mellitus with hemoglobin A1c goal of less than 7.0% ([facility]) Current Outpatient Medications Medication Sig Dispense Refill Loperamide HCl 2 MG Oral Capsule (Imodium) Take 1 Capsule by mouth 4 times a day as needed for Diarrhea. Melatonin 5 MG Oral Capsule Take 1 Capsule by mouth at bedtime. Womens 50+ Multi Vitamin/Min Oral Tablet Take by mouth daily. Nystatin [id number] UNIT/GM External Powder (Nystop) Apply topically to affected area 2 times a day as needed (rash). 60 g 3 Potassium Chloride Akiko ER 20 MEQ Oral Tablet Extended Release TAKE 1 TABLET BY MOUTH ONCE DAILY INTHE MORNING 90 Tablet 3 Furosemide 20 MG Oral Tablet (Lasix) TAKE 1 TABLET BY MOUTH IN THE MORNING 90 Tablet 3 Metoprolol Tartrate 25 MG Oral Tablet (Lopressor) Take 1 Tablet by mouth in the morning and 1 Tablet before bedtime. 180 Tablet 3 metFORMIN HCl ER 500 MG Oral Tablet Extended Release 24 Hour (Glucophage XR) Take 1 Tablet by mouth2 times a day with morning and evening meals. 180 Tablet 3 Artificial Tears Ophthalmic Solution Instill into eye. Ozempic (2 MG/DOSE) 8 MG/3ML Subcutaneous Solution Pen-injector (Semaglutide (2 MG/DOSE)) Inject 2 mg under the skin once a week. Dose increase 9 mL 4 Spironolactone 50 MG Oral Tablet (Aldactone) TAKE 1 TABLET BY MOUTH IN THE MORNING 90 Tablet 0 Curity Iodoform Packing Strip Iodoform packing 2 inches strip gauze buttock wound - changed daily. 1 Each 5 COVID-19 mRNA Vaccine 12 years and above [employer] 30 MCG/0.3 ML IM SUSP Inject into a large muscle asdirected (Patient not taking: Reported on 07/23/2024) 0.3 mL 0 Dakins (1/2 strength) 0.25 % External Solution Apply topically to affected area daily. 1/2 StrengthDakin's Solution moistened gauze packing to buttock wound - changed daily. (Patient not taking: Reported on 07/23/2024) 473 mL 1 No current facility-administered medications for this visit. Review of patient's allergies indicates: No Known Allergies Objective: BP 132/88 (BP Site: Left Arm, BP Position: Sitting, BP Cuff Size: Regular) | Pulse 105 | Temp 97.1 F (36.2 C) (Tympanic) | Resp 18 | Ht 5' 3" (1.6 m) | Wt 229 lb 14.4 oz (104.3 kg) | SpO2 95% | BMI 40.72 kg/m | BSA 2.15 m Physical Exam: CONST: alert, pleasant, no acute distress. Lozano catheter in place HEAD: normocephalic, atraumatic NECK: supple, soft, no adenopathy EARS: canals normal, TMs normal NARES: clear Eyes - PERRLA, EOM'I OROPHARYNX: clear, no swelling or erythema, moist CV: regular rate and rhythm, grade 3/6 systolic murmur CHEST: clear to auscultation bilaterally, no rales or wheezing ABD: soft, non tender, non distended, no masses or hepatosplenomegaly EXT: no edema, no joint swelling or deformities, NEURO: AAOx3, no gross focal deficits, cerebellar signs normal, affect appropriate MENTAL STATUS: no evidence of thought disorder, no delusional thought, no evidence of paranoia, thought is non-tangential. SKIN: no rash or significant lesions ASSESSMENT/PLAN: Chronic diastolic congestive heart failure (HCC)-compensated Body mass index (BMI) of 50.0 to 59.9 in adult (HCC)-she lost 14 lb in the last year Type 2 diabetes mellitus with hemoglobin A1c goal of less than 7.0% (HCC)-she currently has totallynormal hemoglobin A1c. We will decrease her metformin ER 500 mg once a day and repeat her hemoglobin A1c in 6 months. If that looks okay then will stop the metformin completely. Chronic kidney disease, stage 3a (HCC) Esophageal varices without bleeding, unspecified esophageal varices type (HCC)- this is not been a issue as of late Hemochromatosis-followed by GI no phlebotomy necessary at this time Elevated blood pressure today-I did not add anything for her blood pressure lower. We will see whather blood pressure looks like when she sees Cardiology. Given her underlying aortic stenosis, we definitely do not want to get too aggressive with blood pressure lowering. See again 6 months Christopher Castro MD documented in this encounter Nursing Notes * Naomi Gonzalez LPN - 07/23/2024 2:10 PM EST The patient has been properly identified by confirmation of name and date of . Chief Complaint Patient presents with Follow Up Patient is here today for a follow up visit Patient states no concerns. documented in this encounter Plan of Treatment Upcoming Encounters Date Type Department Care Team (Late st Contact Info) Description 08/01/2024 8:30 AM EST Office Visit Wound Care, [place] [address] [place] [address] Clementina Carlos MD [address] [place] [address] 08/20/2024 8:15 AM EDT Cardiac Studies Cardiac Studies, [facility] [address] [facility] [place] [address] 08/27/2024 8:00 AM EDT Office Visit Cardiology, [facility] [address] [facility] [place] [address] Luciana Jalloh CRNP [address] [place] [address] 09/05/2024 9:00 AM EDT Office Visit Plastic Surgery, [place] [address] [place] [address] Ricky Araiza MD [address] [place] [address] 09/05/2024 10:00 AM EDT Office Visit Wound Care, [place] [address] [place] [address] Clementina Carlos MD [address] [place] [address] 01/21/2025 2:00 PM EDT Office Visit [facility] [address] [place] [phone] Chritsopher Castro MD [address] [place] [address] Scheduled Orders Name Type Priority Associated Diagnoses Orde r Schedule HEMOGLOBIN A1C Lab Routine Type 2 diabetes mellitus with hemoglobin A1c goal of less than 7.0% (HCC) Expected: 07/23/2024 (Approximate), Expires: 07/23/2025 Scheduled Procedures Name Priority Associated Diagnoses Date/Ti [...] Declined After Education) CKD HGB USE SMARTSET 80665 07/16/202507/16, 07/16/2024, 04/02/2024, Additional history exists CKD PHOS USE SMARTSET 74501 07/16/2025 07/16/2024 Lipid Panel 07/16/2029 07/16/2024, 07/01, [...] Not on filedocumented as of this encounter Visit Diagnoses Diagnosis Pressure injury of left buttock, unstageable (HCC)- Primary Chronic diastolic congestive heart failure (HCC) Chronic diastolic heart failure Body mass index (BMI) of 50.0 to 59.9 in adult (HCC) Type 2 diabetes mellitus with hemoglobin A1c goal of less than 7.0% (HCC) Chronic kidney disease, stage 3a (HCC) Esophageal varices without bleeding, unspecified esophageal varices type (HCC) Aortic valve stenosis, etiology of cardiac valve disease unspecified documented in this encounter Care Teams Paper Latcher Relationship Specialty Start Date End Date Christopher Castro MD [address] [facility] [place] [address] PCP - General Family Medicine 04/14/22 documented as of this encounter
--- OUTSIDE RECORDS SUMMARY | 2024-08-01 20:37 | External Medical Summary ---
Author Name Unknown Address Unknown Organization K01[place] [facility] [place] [address] [place] [address] Laboratory Report Ordering Provider Test Date Status SANDRA CHAVEZ 07/16/2024 08:20:37 Final Observation Date Value Abnormality Reference (Units ) Status BUN 07/16/2024 08:20:37 17 6-20 (mg/dL) Final Creatinine 07/16/2024 08:20:37 1.2 Above high normal 0.5-1.0 (mg/dL) Final Glomerular filtration rate/1.73 sq M.predicted [Volume Rate/Area] in Serum, Plasma or Blood by Creatinine-based formula (CKD-EPI) 07/16/2024 08:20:37 53 Below low normal >=60 (mL/min) Final eGFR is calculated based on the CKD-EPI 2020 equation. Sodium 07/16/2024 08:20:37 136 135-146 (m mol/L) Final Potassium 07/16/2024 08:20:37 4.2 3.5-5.1 (m mol/L) Final Cl 07/16/2024 08:20:37 96 Below low normal 98- 107 (mmol/L) Final CO2 07/16/2024 08:20:37 27 22-32 (mmo l/L) Final Anion gap 07/16/2024 08:20:37 13 7-15 (mmol /L) Final Glucose 07/16/2024 08:20:37 92 70-120 (mg /dL) Final Calcium 07/16/2024 08:20:37 9.4 8.4-10.2 ( mg/dL) Final Performing Location [facility] [place] [address] [place] [address]
--- OUTSIDE RECORDS SUMMARY | 2024-08-01 20:37 | External Medical Summary ---
Author Name Unknown Address Unknown Organization K01:LAB[facility]ATORY [facility] [place] [address] [place] [address] Laboratory Report Ordering Provider Test Date Status SCOTTSANDRA ZAMORA 07/16/2024 08:20:37 Final Warfarin Therapy
INR: 2 .0-3.0 conventional anticoagulation
INR: 2.5- 3.5 high intensity anticoagulation Observation Date Value Abnormality Reference (Units ) Status PT 07/16/2024 08:20:37 12.5 11.6-15.2 (seconds) Final INR 07/16/2024 08:20:37 0.9 0.8-1.2 Final Performing Location LABORATORY [facility] [place] - [address] [place] [address]
--- OUTSIDE RECORDS SUMMARY | 2024-08-01 20:37 | External Medical Summary | Summary of Care ---
Author Name Unknown Organization [facility] Address [address] [place] [address] Phone [phone] Care Team Providers Care Physician Industrial Name Role Phone Christopher Castro MD Primary Care Provider [phone] Reason for Visit * Reason Comments Outpatient Testing Encounter Details Date Type Department Care Team (Late st Contact Info) Description 07/16/2024 8:00 AM EST Laboratory Laboratory, [facility] [address] [facility] [place] [phone] [facility] [address] [facility] [address] Hereditary hemochromatosis (HCC); Diabetes mellitus (HCC); Chronic kidney disease, unspecified CKD stage; Screening for lipid disorders; Cirrhosis of liver without ascites, unspecified hepatic cirrhosis type (HCC) Allergies No known active allergiesdocumented as of this encounter (statuses as of 07/16/2024) Medications Loperamide HCl 2 MG Oral Capsule (Imodium) Take 1 Capsule by mouth 4 times a day as needed for Diarrhea. Active Melatonin 5 MG Oral Capsule Take 1 Capsule by mouth at bedtime. Active Womens 50+ Multi Vitamin/Min Oral Tablet Take by mouth daily. Active Nystatin 465023 UNIT/GM External Powder (Nystop) Apply topically to [...] as of this encounter (statuses as of 07/16/2024) Active Problems Problem Noted Date Diagnosed Date [...] as of this encounter (statuses as of 07/16/2024) Resolved Problems Problem Noted Date Diagnosed Date [...] as of this encounter (statuses as of 07/16/2024) Immunizations Name Administration Dates Next Due COVID-19 mRNA, LNP-s, No Pre serve, 2-Dose Series (iKONVERSE) 06/01/2021,09/06/2020,08/16/2020 COVID-19, MRNA-LNP, PF, 30 M CG/0.3 mL, 12 YRS AND ABOVE, IM ([facility]) 03/21/2023 Covid-19, Mrna, Lnp-s, Pf, B ivalent, 10 Mcg, IM, 5-11 yrs (Pfizer) 05/18/2022 HEP A - Hepatitis A (Adult > 18 yrs) 02/28/2023 HEPATITIS B VACCINE, RECOMB, 20 MCG/ML, ADULT (HEPLISAV-B) 09/07/2023,02/28/2023 Pneumococcal Conjugate Vacci ne, 20-valent ([id number]) 02/28/2023 Seasonal Influenza, PF, 6 M & [...] Description 07/23/2024 2:20 PM EST Office Visit [facility] [address] [place] [phone] Christopher Castro MD [address] [place] [address] 08/01/2024 8:30 AM EST Office Visit Wound Care, [place] [address] [place] [facility] [place] [address] Clementina Carlos MD [address] [place] [facility] [place] [address] 08/20/2024 8:15 AM EDT Cardiac Studies Cardiac Studies, [facility] [address] [facility] [place] [address] 08/27/2024 8:00 AM EDT Office Visit Cardiology, [facility] [address] [facility] [place] [address] Luciana Mabry CRNP [address] [place] [address] 09/05/2024 9:00 AM EDT Office Visit Plastic Surgery, [place] [address] [place] [address] Ricky Araiza MD [address] [place], [place] [id number] 09/05/2024 10:00 AM EDT Office Visit Wound Care, [place] [address] [place], [place] [id number] Clementina Carlos MD [address] [place] [address] Pending Results Name Type Priority Associated Diagnoses Date /Time FERRITIN Lab Routine Hereditary hemochromatosis (HCC) 07/16/2024 8:20 AM EST HEMOGLOBIN A1C Lab Routine Diabetes mellitus (HCC) 07/16/2024 8:20 AM EST PHOSPHORUS Lab Routine Chronic kidney disease, unspecified CKD stage 07/16/2024 8:20 AM EST LIPID PANEL WITH DIRECT LDL IF TG IS HIGH Lab Routine Screening for lipid disorders 07/16/2024 8:20 AM EST HEPATIC FUNCTION PANEL Lab Routine Hereditary hemochromatosis (HCC) Cirrhosis of liver without ascites, unspecified hepatic cirrhosis type (HCC) 07/16/2024 8:20 AM EST PT INR Lab Routine Hereditary hemochromatosis (HCC) Cirrhosis of liver without ascites, unspecified hepatic cirrhosis type (HCC) 07/16/2024 8:20 AM EST CBC WITH WBC DIFFERENTIAL Lab Routine Hereditary hemochromatosis (HCC) Cirrhosis of liver without ascites, unspecified hepatic cirrhosis type (HCC) 07/16/2024 8:20 AM EST BASIC METABOLIC PANEL Lab Routine Hereditary hemochromatosis (HCC) Cirrhosis of liver without ascites, unspecified hepatic cirrhosis type (HCC) 07/16/2024 8:20 AM EST IRON SCREEN, INCLUDING TIBC Lab Routine Hereditary hemochromatosis (HCC) 07/16/2024 8:20 AM EST CBC Lab Routine Hereditary hemochromatosis (HCC) Cirrhosis of liver without ascites, unspecified hepatic cirrhosis type (HCC) 07/16/2024 8:20 AM EST DIFFERENTIAL, AUTOMATED Lab Routine Hereditary hemochromatosis (HCC) Cirrhosis of liver without ascites, unspecified hepatic cirrhosis type (HCC) 07/16/2024 8:20 AM EST Scheduled Procedures Name Priority Associated Diagnoses Date/Ti me ESOPHAGOGASTRODUODENOSCOPY ( EGD), FLEXIBLE, TRANSORAL, DIAGNOSTIC Recall Esophageal varices (HCC) Health Maintenance Due Date Last Done Comments Albumin/Creatinine Ratio 1978 CKD PHOS USE SMARTSET 07470 1978 Pap Smear 1981 Cervical Cancer Screening 1990 HPV/Co-Test 1990 Mammogram 2000 Cologuard 2005 Colonoscopy 2005 Colorectal Cancer Screening 2005 Fecal Occult Blood Test 2005 Sigmoidoscopy 2005 COVID-19 Vaccine ( season) 2024 03/21/2023, 05/18/2022, 05/18/2022, Additional history exists HbA1c 05/02/2024 11/01/2023, 07/01, 04/14/2023, Additional history exists GFR 09/30/2024 04/02/2024, 06/0 08/2023, 04/26/2023, Additional history exists Diabetic Eye Exam 12/05/2024 12/06/2023, , 02/07/2023 Depression Screening 01/19/2025 01/20/2024 Diabetic Foot Exam 01/19/2025 Postponed from 1978 (Patient Declined After Education) HIV Screening 01/19/2025 Postponed from 1975 (Patient Declined After Education) CKD HGB USE SMARTSET 55018 04/02/202504/02, 04/02/2024, 11/01/2023, Additional history exists Lipid Panel 07/25/2028 07/25/2023, 06/11/2022 DTap/Tdap Vaccines (2 - Td or [...] as of this encounter Visit Diagnoses Diagnosis Hereditary hemochromatosis (HCC) Hereditary hemochromatosis Diabetes mellitus (HCC) Type II or unspecified type diabetes mellitus without mention of complication, not stated as uncontrolled Chronic kidney disease, unspecified CKD stage Screening for lipid disorders Cirrhosis of liver without ascites, unspecified hepatic cirrhosis type (HCC) documented in this encounter Care Teams Physician Industrial Relationship Specialty Start Date End Date Christopher Castro MD PCP - General Family Medicine 04/14/22 documented as of this encounter
--- OUTSIDE RECORDS SUMMARY | 2024-08-01 20:37 | External Medical Summary ---
Author Name Unknown Address Unknown Organization K01:[facility] [place] [address] [place] [address] Laboratory Report Ordering Provider Test Date Status SANDRA CHAVEZ 07/16/2024 08:20:37 Final Observation Date Value Abnormality Reference (Units ) Status Ferritin 07/16/2024 08:20:37 100 13-150 (ng /mL) Final Postmenopausal women have hi gher ferritin levels than pre-menopausal women. The above reference interval is based on pre-menopausal women. Performing Location LABORATORY [facility] - [address] [place] [address]
--- OUTSIDE RECORDS SUMMARY | 2024-08-01 20:37 | External Medical Summary ---
Author Name Unknown Address Unknown Organization K01:[facility] [place] [address] [place] [address] Laboratory Report Ordering Provider Test Date Status SANDRA CHAVEZ 07/16/2024 08:20:37 Final Observation Date Value Abnormality Reference (Units ) Status Iron 07/16/2024 08:20:37 79 33-151 (ug /dL) Final Iron-binding capacity 07/16/2024 08:20:37 292 250-425 (ug/dL) Final Transferrin Sat % 07/16/2024 08:20:37 27 15 -55 (%) Final Performing Location [facility] [place] [address] [place] [address]
--- OUTSIDE RECORDS SUMMARY | 2024-08-01 20:37 | External Medical Summary ---
Author Name Unknown Address Unknown Organization K01:[facility]ORY [facility] - [address] [facility] [place] [address] Laboratory Report Ordering Provider Test Date Status LUIS FENRANDEZ 07/16/2024 08:20:37 Final Observation Date Value Abnormality Reference (Units ) Status Triglyceride 07/16/2024 08:20:37 144 <=174 ( mg/dL) Final Triglyceride Reference Range s (mg/dL):
<150 Acceptable
150-174 Borderline high
175-499 High
>=500 Very high Cholesterol 07/16/2024 08:20:37 218 Above high normal <200 (mg/dL) Final Total Cholesterol Reference Ranges (mg/dL):
<200 Desirable
200-239 Borderline high
>=240 High HDL 07/16/2024 08:20:37 56 >49 (mg/dL ) Final HDL Cholesterol Reference Ra nges (mg/dL):
>=60 High (Desirable)
<50 Low (Undesirable) For Females
<40 Low (Undesirable) For Males NON-HDL CHOLESTEROL 07/16/2024 08:20:37 162 Above high normal <=159 (mg/dL) Final Non-HDL Cholesterol Referenc e Range (mg/dL):
<100 Target level for high risk ASCVD patient
<130 Optimal for general population
130-159 Near optimal for general population
160-189 Borderline High
190-219 High
>=220 Very High LDL, (calculated) 07/16/2024 08:20:37 133 Above high n ormal <=129 (mg/dL) Final LDL Cholesterol Reference Ra nges (mg/dL):
<70 Target level for high risk ASCVD patient
<100 Optimal for general population
100-129 Near optimal for general population
130-159 Borderline high
160-189 High
>=190 Very high Performing Location [facility] [place] [address] [facility] [address]
--- OUTSIDE RECORDS SUMMARY | 2024-08-01 20:37 | External Medical Summary ---
Author Name Unknown Address Unknown Organization K01[place] [place] [address] [facility] [place] [address] Laboratory Report Ordering Provider Test Date Status SANDRA CHAVEZ 07/16/2024 08:20:37 Final Observation Date Value Abnormality Reference (Units ) Status SYNC LEUKOCYTES IN BLOOD BY AUTOMATED COUNT 07/16/2024 08:20:37 9.21 4.00-10.80 (K/uL) Final Segs 07/16/2024 08:20:37 67.5 40.0-75.0 (%) Final Lymphs % 07/16/2024 08:20:37 23.7 18.0-42.0 (%) Final Monos 07/16/2024 08:20:37 5.8 1.0-11.0 (%) Final Eosinophils 07/16/2024 08:20:37 2.1 0.0-6.0 (%) Final Basos 07/16/2024 08:20:37 0.7 0.0-2.0 (%) Final Immature Granulocyte, Percent 07/16/2024 08:20:37 0.2 0.0-2.0 (%) Final Absolute Segs 07/16/2024 08:20:37 6.23 1.80-7.70 (K/uL) Final Lymphs, absolute 07/16/2024 08:20:37 2.18 1.00-4.80 (K/ul) Final Monos, Abs 07/16/2024 08:20:37 0.53 0.00-1.10 (K/uL) Final Eos, Abs 07/16/2024 08:20:37 0.19 0.00-0.70 (K/uL) Final Basos, Abs 07/16/2024 08:20:37 0.06 0.00-0.20 (K/uL) Final Immature Granulocytes, Number 07/16/2024 08:20:37 0.02 0.00-0.20 (K/uL) Final Performing Location [facility] [place] [address] [facility] [address]
--- OUTSIDE RECORDS SUMMARY | 2024-08-01 20:37 | External Medical Summary ---
Author Name Unknown Address Unknown Organization K01:[facility] [place] - [facility] [place] [address] [facility] [address] [facility] [address] Laboratory Report Ordering Provider Test Date Status SANDRA CHAVEZ 07/16/2024 08:20:37 Final Observation Date Value Abnormality Reference (Units ) Status WBC, Total 07/16/2024 08:20:37 9.21 4.00-10.80 (K/uL) Final RBC 07/16/2024 08:20:37 4.08 3.85-5.15 (M/uL) Final Hemoglobin 07/16/2024 08:20:37 13.3 12.0-15.3 (g/dL) Final HCT 07/16/2024 08:20:37 38.4 36.0-45.2 (%) Final MCV 07/16/2024 08:20:37 94.1 81.5-97.5 (fL) Final MCH 07/16/2024 08:20:37 32.6 27.0-34.0 (pg) Final MCHC 07/16/2024 08:20:37 34.6 32.0-36.0 (g/dL) Final RDW 07/16/2024 08:20:37 12.6 11.5-15.5 (%) Final Platelets 07/16/2024 08:20:37 187 140-400 (K/uL) Final MPV 07/16/2024 08:20:37 10.1 6.6-11.1 (fL) Final Nucleated erythrocytes/100 leukocytes [Ratio] in Blood by Automated count 07/16/2024 08:20:37 0 <=0 (/100 WBCs) Final Performing Location LABORATORY [facility] [place] - [address] [facility] [address]
--- OUTSIDE RECORDS SUMMARY | 2024-08-01 20:37 | External Medical Summary | Summary of Care ---
Author Name Unknown Organization [facility] Address [address] [place] [address] Phone [phone] Care Team Providers Care Meeting Specialist Name Role Phone Christopher Castro MD Primary Care Provider [phone] Reason for Visit * Reason Onset Date Comments Test Results Lab 07/17/2024 Encounter Details Date Type Department Care Team (Late st Contact Info) Description 07/17/2024 Telephone Hepatology, [facility] [address] [place] [address] Mariel Smoers DO [address] [place] [address] Test Results Lab Allergies No known active allergiesdocumented as of this encounter (statuses as of 07/17/2024) Medications Loperamide HCl 2 MG Oral Capsule (Imodium) Take 1 Capsule by mouth 4 times a day as needed for Diarrhea. Active Melatonin 5 MG Oral Capsule Take 1 Capsule by mouth at bedtime. Active Womens 50+ Multi Vitamin/Min Oral Tablet Take by mouth daily. Active Nystatin 049475 UNIT/GM External Powder (Nystop) Apply topically to [...] mRNA, LNP-s, No Pre serve, 2-Dose Series (GSOUND) 06/01/2021,09/06/2020,08/16/2020 COVID-19, MRNA-LNP, PF, 30 M CG/0.3 mL, 12 YRS AND ABOVE, IM (PFIZER-Comirnaty) 03/21/2023 Covid-19, Mrna, Lnp-s, Pf, B ivalent, 10 Mcg, IM, 5-11 yrs (Pfizer) 05/18/2022 HEP A - Hepatitis A (Adult > 18 yrs) 02/28/2023 HEPATITIS B VACCINE, RECOMB, 20 MCG/ML, ADULT (HEPLISAV-B) 09/07/2023,02/28/2023 Pneumococcal Conjugate Vacci ne, 20-valent ([id number]) 02/28/2023 Seasonal Influenza, PF, 6 M & [...] Description 07/23/2024 2:20 PM EST Office Visit [facility] [address] [place] [place] [address] Christopher Castro MD [address] [place] [address] 08/01/2024 8:30 AM EST Office Visit [address] [place] [address] Clementina Carlos MD [address] [place] [address] 08/20/2024 8:15 AM EDT Cardiac Studies Cardiac Studies, [facility] [address] [place] [address] 08/27/2024 8:00 AM EDT Office Visit Cardiology, [facility] [address] [place] [address] Luciana Jalloh CRNP [address] [place] [address] 09/05/2024 9:00 AM EDT Office Visit Plastic Surgery, [place] [address] [place] [address] Ricky Araiza MD [address] [place] [address] 09/05/2024 10:00 AM EDT Office Visit Wound Care, [place] [address] [place] [address] Clementina Carlos MD [address] [place] [address] Scheduled Procedures Name Priority Associated [...] Declined After Education) CKD HGB USE SMARTSET 99801 07/16/202507/16, 07/16/2024, 04/02/2024, Additional history exists CKD PHOS USE SMARTSET 37215 07/16/2025 07/16/2024 Lipid Panel 07/16/2029 07/16/2024, 07/01, [...] filedocumented as of this encounter Care Teams Meeting Specialist Relationship Specialty Start Date End Date Christopher Castro MD PCP - General Family Medicine 04/14/22 documented as of this encounter
[2024-08-01] MEDS: MELATONIN 3 MG TAB PO SCH (20:42)
[2024-08-01 21:46] LABS: BUN Creatinine Ratio 13.6 (10-20); Calcium 9.2 mg/dl (8.6-10.3); Potassium 3.8 mmol/L (3.5-5.1)
--- NOTE | 2024-08-02 03:49 | Communication Note ---
Date of Service: August 02, 2024 Serum sodium noted to be 131 last night from 123 on admission. D5W IVF for rapidly corrected hyponatremia as per admitting provider recommendations.
[2024-08-02] MEDS: DEXTROSE 5% 500 ML IV ONE (04:23)
[2024-08-02 06:50] LABS: Hematocrit (blood only) 29.3 % (37.0-47.0); Hemoglobin 10.8 g/dl (12.0-16.0); Mean Corpuscular Hemoglobin 32.1 pg (25.0-34.0); Mean Corpuscular Hgb Conc 36.9 g/dL (32.0-36.0); Mean Corpuscular Volume 87.2 fL (80.0-100.0); Mean Platelet Volume 9.1 fL (9.4-12.4); Platelet Count 204 K/uL (130-400); RDW Coefficient of Variation 12.6 % (11.5-14.5); Red Blood Count 3.36 M/uL (4.20-5.40); White Blood Count 6.46 K/ul (4.8-10.8)
--- NOTE | 2024-08-02 07:14 | Hospitalist Progress Note ---
Date of Service August 02, 2024 Assessment & Plan (1) Acute metabolic encephalopathy: (2) Complicated UTI (urinary tract infection): (3) Hx MRSA infection: (4) Hyponatremia: (5) Pressure ulcer of left buttock: (6) Morbid obesity with BMI of 40.0-44.9, adult: (7) Type 2 diabetes mellitus: (8) (HFpEF) heart failure with preserved ejection fraction: (9) Liver cirrhosis secondary to GALICIA: Plan 64-yo F with PMH of type 2 diabetes, HFpEF, history of esophageal varices witho ut bleeding, GALICIA, aortic valve stenosis, CKD 3, hereditary hemochromatosis, pressure injury of left buttock following with wound care/orthopedic service at [facility], chronic indwelling Gandara catheter and other medical problems listed below who presents from home with urinary symptoms and found to have acute metabolic encephalopathy in setting of complicated UTI and hyponatremia. Acute metabolic encephalopathy In setting of UTI, hyponatremia as discussed below Less oriented to situation than she typically is, still A&O x 3 on admission Expect improvement with abx, lyte correction 08/02 Today she is sitting up , pleasant, knows she is in the hospital, able to hold conversation. answers simple questions appropriately. Says she was off yesterday. She does not know what day it it is but knows it's a weekday. Complicated UTI Chronic indwelling gandara 2/2 non-healing L buttocks pressure ulcer UA abnormal, sample redrawn after gandara exchanged, culture pending H/o MRSA in urine previously, last in 2022 Continue empiric Rocephin, Dapto Hyponatremia Na 123 on admission -> 129 PM, 131 at night, D5W started overnight Baseline Na within normal range Reports significant water intake over the last few days with urinary sx Serum osm and urine osm low - consistent with polydipsia Repeat BMP around noontime with increased Na from 123 to 129 Goal to correct no more than 8-10 mmol within 24 hour period Hold diuretics for now 08/02 Na 136 - increased D5W and encouraged water intake this AM, also discussed w/ RN at the bedside. Will recheck Na level this PM. Pressure ulcer left buttock Has been present for years, undergone HBO and wound vac in the past Recently seen by [facility] wound care/orthopedic service who changed regimen to iodoform packing 2 inch strip gauze change daily with home health/daughters (last changed yesterday @ noon) Due to see plastic surgery at beginning of August Wound does not appear infected per admitting team Wound care nurse consulted for packing Turn and reposition Type 2 diabetes mellitus Morbid obesity with BMI over 40 Recent weight loss on Ozempic with A1c of 4.8 in Jun 2024 Metformin reduced to daily - hold SSI while in-patient BSG AC HS HFpEF Aortic stenosis Appears euvolemic, continue lopressor BID, holding diuretics as above given hypoNa GALICIA Cirrhosis Appears compensated, diuretics as above DVT Ppx: SQ lovenox Code status: FULL PCP: Dr. Castro Dispo: PCU Admission and Anticipated Discharge Date Admission Date: August 01, 2024 Subjective Pt seen in follow up of AMS, hyponatremia, UTI-Gandara associated hx of buttock wound Currently sitting up in bed in [facility], she knows she is in the hospital and can hold conversation. She can't tell which day it is but knows it's a weekday. RN at the bedside and discussed with - Na 136 - will encourage water intake and will increase D5W to 125. will re-check Na this PM Pt denies fever, chills, chest pain, shortness of breath, abd. pain Review of Systems Review of Systems: All systems reviewed & are unremarkable except as noted in Subjective Physical Exam Physical Exam: General Appearance: obese elderly F in NAD, sitting up in bed Head: normocephalic, atraumatic Eyes: normal inspection, PERRL, conjunctivae normal ENT: external ear and nose normal Neck: normal visual inspection Respiratory: normal respiratory effort, decreased breath sounds. No accessory muscle use Cardiovascular: regular rate, rhythm, + systolic murmur, normal peripheral pulses Chest: normal inspection of chest Abdomen/GI: normal bowel sounds, soft, nontender : + Gandara Extremities/Musculoskeletal: moves extremities Neurologic: awake, alert, able to answer simple questions and hold converstaion, PERRL, EOMI, no face palsy, no dysarthria, CN's II-XI intact bilaterally and moves all extremities Skin: no rashes, normal color, warm/dry. + L buttocks with chronic wound with dressings placed Results & Data Results & Data Vital Signs (Past 12 Hours) Vital Signs Temp Pulse Pulse Resp BP Pulse Ox O2 Del Method 08/02/24 03:58 36.7 C 93 H 18 96/60 L 97 Room Air 08/01/24 23:24 90 08/01/24 22:16 36.9 C 89 18 95/62 L 96 Room Air 08/01/24 20:27 100 H 113/74 08/01/24 19:59 36.4 C L 95 H 18 100/65 95 Room Air Laboratory Results 08/02/24 08/01/24 08/01/24 Range/Units 06:26 21:03 20:30 WBC 6.46 (4.8-10.8) K/ul RBC 3.36 L (4.20-5.40) M/uL Hgb 10.8 L (12.0-16.0) g/dl Hct 29.3 L (37.0-47.0) % MCV 87.2 (80.0-100.0) fL MCH 32.1 (25.0-34.0) pg MCHC 36.9 H (32.0-36.0) g/dL RDW Std Deviation 40.0 (36.4-46.3) fL RDW Coeff of Chintan 12.6 (11.5-14.5) % Plt Count 204 (130-400) K/uL MPV 9.1 L (9.4-12.4) fL Sodium Pending 131 L (136-145) mmol/L Potassium Pending 3.8 (3.5-5.1) mmol/L Chloride Pending 101 (98-107) mmol/L Carbon Dioxide Pending 24 (21-32) mmol/L Anion Gap Pending 6 (3-11) BUN Pending 12 (6-23) mg/dl Creatinine Pending 0.88 (0.6-1.2) mg/dl Est Cr Clr Drug Dosing Pending 77.0 ml/min eGFR Pending 73.34 BUN/Creatinine Ratio Pending 13.6 (10-20) Glucose Pending 100 H (70-99(Fasting)) mg/dl POC Glucose 82 (70-99) mg/dl Osmolality (280-300) mOsm/kg Lactate (0.4-2.0) mmol/L Calcium Pending 9.2 (8.6-10.3) mg/dl Procalcitonin (0-0.5) ng/ml Urine Color Urine Appearance (Clear) Urine pH (4.5-7.5) Ur Specific [place] (1.000-1.030) Urine Protein (Negative) Urine Glucose (UA) (Negative) Urine Ketones (Negative) Urine Blood (Negative) Urine Nitrite (Negative) Urine Bilirubin (Negative) Urine Urobilinogen (Negative) Ur Leukocyte Esterase (Negative) Urine WBC (Auto) (0-5) /hpf Urine RBC (Auto) (0-2) /hpf U Hyaline Cast (Auto) (0-2) /lpf U Epithel Cells (Auto) (0-2) /hpf Urine Bacteria (Auto) (None Seen) Urine Osmolality (500-800) mOsm/kg Ur Random Sodium mmol/L Adenovirus (PCR) (NotDetected) B. pertussis DNA (PCR) (NotDetected) B.parapertussis DNA PCR (NotDetected) C. pneumoniae DNA (PCR) (NotDetected) Coronavirus OC43 (PCR) (NotDetected) Coronavirus HKU1 (PCR) (NotDetected) Coronavirus 229E (PCR) (NotDetected) SARS-CoV-2 (PCR) (NotDetected) Coronavirus NL63 (PCR) (NotDetected) Human Metapneumovir PCR (NotDetected) Influenza Type A (PCR) (NotDetected) Influenza Type B (PCR) (NotDetected) M. pneumoniae (PCR) (NotDetected) Parainfluenza 1 (PCR) (NotDetected) Parainfluenza 2 (PCR) (NotDetected) Parainfluenza 3 (PCR) (NotDetected) Parainfluenza 4 (PCR) (NotDetected) RSV (PCR) (NotDetected) Entero/Rhino (PCR) (NotDetected) 08/01/24 08/01/24 08/01/24 Range/Units 17:39 15:37 11:57 WBC (4.8-10.8) K/ul RBC (4.20-5.40) M/uL Hgb (12.0-16.0) g/dl Hct (37.0-47.0) % MCV (80.0-100.0) fL MCH (25.0-34.0) pg MCHC (32.0-36.0) g/dL RDW Std Deviation (36.4-46.3) fL RDW Coeff of Chintan (11.5-14.5) % Plt Count (130-400) K/uL MPV (9.4-12.4) fL Sodium 129 L 129 L (136-145) mmol/L Potassium 3.8 4.5 (3.5-5.1) mmol/L Chloride 98 97 L (98-107) mmol/L Carbon Dioxide 22 24 (21-32) mmol/L Anion Gap 9 8 (3-11) BUN 11 11 (6-23) mg/dl Creatinine 0.91 0.77 (0.6-1.2) mg/dl Est Cr Clr Drug Dosing 74.4 88.0 ml/min eGFR 70.45 86.09 BUN/Creatinine Ratio 12.1 14.3 (10-20) Glucose 102 H 90 (70-99(Fasting)) mg/dl POC Glucose 138 H (70-99) mg/dl Osmolality (280-300) mOsm/kg Lactate (0.4-2.0) mmol/L Calcium 9.3 8.9 (8.6-10.3) mg/dl Procalcitonin (0-0.5) ng/ml Urine Color Urine Appearance (Clear) Urine pH (4.5-7.5) Ur Specific [place] (1.000-1.030) Urine Protein (Negative) Urine Glucose (UA) (Negative) Urine Ketones (Negative) Urine Blood (Negative) Urine Nitrite (Negative) Urine Bilirubin (Negative) Urine Urobilinogen (Negative) Ur Leukocyte Esterase (Negative) Urine WBC (Auto) (0-5) /hpf Urine RBC (Auto) (0-2) /hpf U Hyaline Cast (Auto) (0-2) /lpf U Epithel Cells (Auto) (0-2) /hpf Urine Bacteria (Auto) (None Seen) Urine Osmolality (500-800) mOsm/kg Ur Random Sodium mmol/L Adenovirus (PCR) (NotDetected) B. pertussis DNA (PCR) (NotDetected) B.parapertussis DNA PCR (NotDetected) C. pneumoniae DNA (PCR) (NotDetected) Coronavirus OC43 (PCR) (NotDetected) Coronavirus HKU1 (PCR) (NotDetected) Coronavirus 229E (PCR) (NotDetected) SARS-CoV-2 (PCR) (NotDetected) Coronavirus NL63 (PCR) (NotDetected) Human Metapneumovir PCR (NotDetected) Influenza Type A (PCR) (NotDetected) Influenza Type B (PCR) (NotDetected) M. pneumoniae (PCR) (NotDetected) Parainfluenza 1 (PCR) (NotDetected) Parainfluenza 2 (PCR) (NotDetected) Parainfluenza 3 (PCR) (NotDetected) Parainfluenza 4 (PCR) (NotDetected) RSV (PCR) (NotDetected) Entero/Rhino (PCR) (NotDetected) 08/01/24 08/01/24 08/01/24 Range/Units 11:11 10:30 10:25 WBC (4.8-10.8) K/ul RBC (4.20-5.40) M/uL Hgb (12.0-16.0) g/dl Hct (37.0-47.0) % MCV (80.0-100.0) fL MCH (25.0-34.0) pg MCHC (32.0-36.0) g/dL RDW Std Deviation (36.4-46.3) fL RDW Coeff of Chintan (11.5-14.5) % Plt Count (130-400) K/uL MPV (9.4-12.4) fL Sodium (136-145) mmol/L Potassium (3.5-5.1) mmol/L Chloride (98-107) mmol/L Carbon Dioxide (21-32) mmol/L Anion Gap (3-11) BUN (6-23) mg/dl Creatinine (0.6-1.2) mg/dl Est Cr Clr Drug Dosing ml/min eGFR BUN/Creatinine Ratio (10-20) Glucose (70-99(Fasting)) mg/dl POC Glucose 98 (70-99) mg/dl Osmolality (280-300) mOsm/kg Lactate 0.9 (0.4-2.0) mmol/L Calcium (8.6-10.3) mg/dl Procalcitonin (0-0.5) ng/ml Urine Color Yellow Urine Appearance Clear (Clear) Urine pH 7.5 (4.5-7.5) Ur Specific [place] 1.002 (1.000-1.030) Urine Protein Negative (Negative) Urine Glucose (UA) Negative (Negative) Urine Ketones Negative (Negative) Urine Blood 3+ H (Negative) Urine Nitrite Negative (Negative) Urine Bilirubin Negative (Negative) Urine Urobilinogen Negative (Negative) Ur Leukocyte Esterase 3+ H (Negative) Urine WBC (Auto) 11-20 H (0-5) /hpf Urine RBC (Auto) 0-2 (0-2) /hpf U Hyaline Cast (Auto) 3-5 H (0-2) /lpf U Epithel Cells (Auto) 0-2 (0-2) /hpf Urine Bacteria (Auto) 3+ H (None Seen) Urine Osmolality (500-800) mOsm/kg Ur Random Sodium mmol/L Adenovirus (PCR) (NotDetected) B. pertussis DNA (PCR) (NotDetected) B.parapertussis DNA PCR (NotDetected) C. pneumoniae DNA (PCR) (NotDetected) Coronavirus OC43 (PCR) (NotDetected) Coronavirus HKU1 (PCR) (NotDetected) Coronavirus 229E (PCR) (NotDetected) SARS-CoV-2 (PCR) (NotDetected) Coronavirus NL63 (PCR) (NotDetected) Human Metapneumovir PCR (NotDetected) Influenza Type A (PCR) (NotDetected) Influenza Type B (PCR) (NotDetected) M. pneumoniae (PCR) (NotDetected) Parainfluenza 1 (PCR) (NotDetected) Parainfluenza 2 (PCR) (NotDetected) Parainfluenza 3 (PCR) (NotDetected) Parainfluenza 4 (PCR) (NotDetected) RSV (PCR) (NotDetected) Entero/Rhino (PCR) (NotDetected) 08/01/24 08/01/24 08/01/24 Range/Units 07:40 05:50 05:34 WBC (4.8-10.8) K/ul RBC (4.20-5.40) M/uL Hgb (12.0-16.0) g/dl Hct (37.0-47.0) % MCV (80.0-100.0) fL MCH (25.0-34.0) pg MCHC (32.0-36.0) g/dL RDW Std Deviation (36.4-46.3) fL RDW Coeff of Chintan (11.5-14.5) % Plt Count (130-400) K/uL MPV (9.4-12.4) fL Sodium (136-145) mmol/L Potassium (3.5-5.1) mmol/L Chloride (98-107) mmol/L Carbon Dioxide (21-32) mmol/L Anion Gap (3-11) BUN (6-23) mg/dl Creatinine (0.6-1.2) mg/dl Est Cr Clr Drug Dosing ml/min eGFR BUN/Creatinine Ratio (10-20) Glucose (70-99(Fasting)) mg/dl POC Glucose (70-99) mg/dl Osmolality 257 L (280-300) mOsm/kg Lactate (0.4-2.0) mmol/L Calcium (8.6-10.3) mg/dl Procalcitonin 0.05 (0-0.5) ng/ml Urine Color Urine Appearance (Clear) Urine pH (4.5-7.5) Ur Specific [place] (1.000-1.030) Urine Protein (Negative) Urine Glucose (UA) (Negative) Urine Ketones (Negative) Urine Blood (Negative) Urine Nitrite (Negative) Urine Bilirubin (Negative) Urine Urobilinogen (Negative) Ur Leukocyte Esterase (Negative) Urine WBC (Auto) (0-5) /hpf Urine RBC (Auto) (0-2) /hpf U Hyaline Cast (Auto) (0-2) /lpf U Epithel Cells (Auto) (0-2) /hpf Urine Bacteria (Auto) (None Seen) Urine Osmolality 105 L (500-800) mOsm/kg Ur Random Sodium 14 mmol/L Adenovirus (PCR) Not Detected (NotDetected) B. pertussis DNA (PCR) Not Detected (NotDetected) B.parapertussis DNA PCR Not Detected (NotDetected) C. pneumoniae DNA (PCR) Not Detected (NotDetected) Coronavirus OC43 (PCR) Not Detected (NotDetected) Coronavirus HKU1 (PCR) Not Detected (NotDetected) Coronavirus 229E (PCR) Not Detected (NotDetected) SARS-CoV-2 (PCR) Not Detected (NotDetected) Coronavirus NL63 (PCR) Not Detected (NotDetected) Human Metapneumovir PCR Not Detected (NotDetected) Influenza Type A (PCR) Not Detected (NotDetected) Influenza Type B (PCR) Not Detected (NotDetected) M. pneumoniae (PCR) Not Detected (NotDetected) Parainfluenza 1 (PCR) Not Detected (NotDetected) Parainfluenza 2 (PCR) Not Detected (NotDetected) Parainfluenza 3 (PCR) Not Detected (NotDetected) Parainfluenza 4 (PCR) Not Detected (NotDetected) RSV (PCR) Not Detected (NotDetected) Entero/Rhino (PCR) Not Detected (NotDetected) Medications Administered Current Inpatient Medications Acetaminophen (Acetaminophen 325 Mg Tab) 650 mg PO Q4H PRN PRN Reason: Pain or Fever Stop: 08/31/24 11:09 Dextrose (Dextrose 50% 50 Ml Syringe) 25 - 50 ml IV UD PRN; Protocol PRN Reason: Hypoglycemia Protocol Stop: 08/31/24 10:23 Enoxaparin Sodium (Enoxaparin Inj 40 Mg/0.4 Ml Syr) 40 mg SQ Q12H ERAN Stop: 08/31/24 11:29 Last Admin: 08/01/24 23:12 Dose: 40 mg Glucagon (Glucagon For Inj 1 Mg Vial) 1 mg SQ UD PRN; Protocol PRN Reason: Hypoglycemia Protocol Stop: 08/31/24 10:23 Glucose (Glucose 40% Gel 15 Gm Tube) 15 - 30 gm PO UD PRN; Protocol PRN Reason: Hypoglycemia Protocol Stop: 08/31/24 10:23 Glucose (Glucose 10 Tab/Tube) 4 - 8 tab PO UD PRN; Protocol PRN Reason: Hypoglycemia Protocol Stop: 08/31/24 10:23 Ceftriaxone Sodium (Rocephin) 2,000 mg in 50 mls @ 100 mls/hr IV Q24H ERAN Stop: 08/12/24 09:59 Daptomycin 500 mg/ Syringe 10 mls @ 5 mls/min IV Q24H ERAN; Protocol Stop: 08/12/24 08:59 Dextrose (D5w) 500 mls @ 75 mls/hr IV .[id number] ONE Stop: 08/02/24 10:39 Last Admin: 08/02/24 04:23 Dose: 75 mls/hr Insulin Aspart (Insulin Aspart Per Unit Charge) 0 units SC ACHS [facility] Stop: 08/31/24 11:29 Last Admin: 08/01/24 20:42 Dose: Not Given Melatonin (Melatonin 3 Mg Tab) 6 mg PO HS [facility] Stop: 08/31/24 20:59 Last Admin: 08/01/24 20:42 Dose: 6 mg Metoprolol Tartrate (Metoprolol Tartrate 25 Mg Tab) 25 mg PO BID [facility] Stop: 08/31/24 12:59 Last Admin: 08/01/24 20:42 Dose: 25 mg Miscellaneous (Carbohydrates For Hypoglycemia ) 15 - 30 gm PO UD PRN PRN Reason: Hypoglycemia Protocol Stop: 08/31/24 10:23 Multivitamins (Multivitamin Tab) 1 tab PO QAM [facility] Stop: 09/01/24 08:59 Ondansetron HCl (Ondansetron Inj 2 Mg/Ml 2 Ml Vial) 4 mg IV Q6H PRN PRN Reason: Nausea Stop: 08/31/24 11:09 Polyethylene Glycol (Polyethylene (Miralax) 17 Gm Pack) 17 gm PO DAILY PRN PRN Reason: Constipation Stop: 08/31/24 11:09 Potassium Chloride (Potassium Chloride Crtab 20 Meq Tabcr) 20 meq PO QAM [facility] Stop: 09/01/24 08:59 Saccharomyces Boulardii (Saccharomyces Boulardii 250 Mg Cap) 250 mg PO DAILY [facility] Stop: 09/01/24 08:59
[2024-08-02 07:16] LABS: BUN Creatinine Ratio 12.5 (10-20); Calcium 8.8 mg/dl (8.6-10.3); Creatinine Clr Calc Pharmacy 83.1 ml/min; Potassium 3.7 mmol/L (3.5-5.1)
[2024-08-02] MEDS: MULTIVITAMIN TAB PO SCH (08:09)
[2024-08-02] MEDS: SACCHAROMYCES BOULARDII 250 MG CAP PO SCH (08:11)
[2024-08-02] MEDS: DAPTOmycin 500 MG in SYRINGE 0 ML IV SCH (08:11)
[2024-08-02] MEDS: POTASSIUM CHLORIDE CRTAB 20 MEQ TABCR PO SCH (08:15)
[2024-08-02] MEDS: cefTRIAXone SODIUM 2,000 MG/50 ML BAG IV SCH (11:26)
[2024-08-02 16:41] LABS: BUN Creatinine Ratio 10.1 (10-20); Calcium 9.1 mg/dl (8.6-10.3); Creatinine Clr Calc Pharmacy 67.2 ml/min; Magnesium 2.1 mg/dl (1.7-2.4); Phosphorus 3.9 mg/dl (2.5-4.9)
[2024-08-02] MEDS: DEXTROSE 5% 500 ML IV SCH (17:21)
[2024-08-02 23:04] LABS: BUN Creatinine Ratio 10.9 (10-20); Calcium 8.7 mg/dl (8.6-10.3); Creatinine Clr Calc Pharmacy 51.9 ml/min; Potassium 3.6 mmol/L (3.5-5.1)
[2024-08-03 06:48] LABS: Hematocrit (blood only) 31.7 % (37.0-47.0); Hemoglobin 11.4 g/dl (12.0-16.0); Mean Platelet Volume 9.2 fL (9.4-12.4); Platelet Count 225 K/uL (130-400); RDW Coefficient of Variation 12.6 % (11.5-14.5); RDW Standard Deviation 41.1 fL (36.4-46.3); Red Blood Count 3.56 M/uL (4.20-5.40); White Blood Count 7.03 K/ul (4.8-10.8)
[2024-08-03 07:10] LABS: BUN Creatinine Ratio 12.8 (10-20); Calcium 9.3 mg/dl (8.6-10.3); Creatinine Clr Calc Pharmacy 61.9 ml/min; Magnesium 2.1 mg/dl (1.7-2.4); Phosphorus 3.8 mg/dl (2.5-4.9); Potassium 4.1 mmol/L (3.5-5.1)
[2024-08-03 07:33] VITALS: BP 130/83; RESP 20; TEMP 97.9; O2SAT 98
--- NOTE | 2024-08-03 11:41 | Discharge Summary ---
Discharge Summary Date of Service August 03, 2024 Principal Dx & Hospital Course #1 = Principal Diagnosis (1) Acute metabolic encephalopathy: (2) Complicated UTI (urinary tract infection): (3) Hx MRSA infection: (4) Hyponatremia: (5) Pressure ulcer of left buttock: (6) Morbid obesity with BMI of 40.0-44.9, adult: (7) Type 2 diabetes mellitus: (8) (HFpEF) heart failure with preserved ejection fraction: (9) Liver cirrhosis secondary to GALICIA: Plan 64-yo F with PMHx significant for type 2 diabetes, HFpEF, history of esophageal varices without bleeding, GALICIA, aortic valve stenosis, CKD 3, hereditary hemochromatosis, pressure injury of left buttock following with wound care/orthopedic service at [facility], chronic indwelling Gandara catheter and other medical problems listed below who presents from home with urinary symptoms and found to have acute metabolic encephalopathy in setting of complicated UTI and hyponatremia. Acute metabolic encephalopathy In setting of UTI, hyponatremia as discussed below Less oriented to situation than she typically is, still A&O x [address] with no acute changes Resolved on day of discharge Complicated UTI Chronic indwelling gandara 2/2 non-healing L buttocks pressure ulcer UA abnormal, sample redrawn after gandara exchanged, culture grew pansensitive E coli Treated with empiric Rocephin, transitioned to po cefdinir for 7 more days Hyponatremia Na 123 on admission -> 129 PM, 131 at night, D5W started overnight Baseline Na high 130s Reports significant water intake over the last few days with urinary sx Serum osm 257, urine osm 105 and urine sodium 14 Case was discussed with Dr Donnie Moe from Nephrology -noted hyponatremia not due to diuretics, can resume on discharge given CHF and Cirrhosis history -Believed due to increased water intake Pt was discharged with instructions to avoid excessive water intake and to continue with home lasix and spironolactone at home. Her K+ was 4.1 on discharge and she was advised to hold her KCl supplement and follow up with her pcp for lab monitoring to determine when to resume. Close PCP and Nephrology followup after discharge. Pressure ulcer left ischium, stg 4 Has been present for years, undergone HBO and wound vac in the past Recently seen by [facility] wound care/orthopedic service who changed regimen to iodoform packing 2 inch strip gauze change daily with home health/daughters (last changed yesterday @ noon) Due to see plastic surgery at beginning of August Wound does not appear infected Wound care nurse consulted Oupt wound followup Type 2 diabetes mellitus Morbid obesity with BMI over 40 Recent weight loss on Ozempic with A1c of 4.8 in Jun 2024 Metformin reduced to daily resume home regimen on discharge with pcp followup HFpEF Aortic stenosis Appears euvolemic continue lopressor BID Continue diuretics on discharge PCP and specialist followup after discharge GALICIA Cirrhosis Appears compensated, continue diuretics PCP and specialist followup after discharge Notes For Next Care Provider Consider nephrology followup Hold home KCl until pcp follow up and lab recheck- K of 4.1 on discharge, and pt on potassium sparing diuretic spironolactone Medication Changes From Visit cefdinir 300mg BID x 7 more days Take with probiotic Hold home KCl until pcp follow up and lab recheck- K of 4.1 on discharge, and pt on potassium sparing diuretic spironolactone Admission HPI Per Admitting Provider This is a 64-year-old female with PMH of type 2 diabetes, HFpEF, history of esophageal varices without bleeding, GALICIA, aortic valve stenosis, CKD 3, hereditary hemochromatosis, pressure injury of left buttock following with wound care/orthopedic service at [facility], chronic indwelling Gandara catheter and other medical problems listed below who presents from home with urinary symptoms and confusion. Patient endorsing darker urine with foul odor over the past week. Says she "chugged a bunch of water" this morning when she knows she need to be seen for her urinary symptoms. Has not taken any medications today. Noted to be more confused than usual by daughter in the ED, which seems to be new. Requiring more re-orientation than she typically does and was asking the same question multiple times, which is not typical for her. Denies any fever or chills. No nasal congestion, chest pain, shortness of breath, nausea, vomiting, abdominal pain, diarrhea or constipation. Has had an indwelling Gandara for the past few years due to nonhealing wound on buttocks and has grown MRSA in the past. Patient lives with and ambulates with walker at baseline. Recently referred to [facility] orthopedic/wound service with plans to see plastic surgery at the beginning of August. No longer undergoing HBO therapy. When seen by wound care physician in May 2024, regimen was switched to iodoform packing 2 inch strip gauze change daily with home health/ daughters. Packing last changed yesterday around lunch. Admission Exam Per Admitting Provider General Appearance: WD/WN, vitals as above, NAD, sitting up in bed, pleasant, obese Head: normocephalic, atraumatic Eyes: normal inspection, PERRL, conjunctivae normal, anicteric sclerae ENT: external ear and nose normal, oropharynx normal Neck: normal visual inspection, trachea midline, no thyromegaly Respiratory: normal respiratory effort, lungs clear to auscultation. No accessory muscle use Cardiovascular: regular rate, rhythm, + systolic murmur, normal peripheral pulses, no BLE edema. Vessels: no JVD Chest: normal inspection of chest Abdomen/GI: normal bowel sounds, soft, nontender, no hepatosplenomegaly : + Gandara Extremities/Musculoskeletal: no cyanosis or clubbing, extremities motor strength 5/5 Neurologic: PERRL, EOMI, accommodation nl, no face palsy, no dysarthria, CN's II-XI intact bilaterally and moves all extremities Psychiatric: A+Ox3 but requiring frequent re-orientation Skin: no rashes, normal color, warm/dry. + L buttocks with chronic wound with packing, no surrounding erythema or drainage noted Discharge Exam General: Alert, oriented. No acute distress Psych: Appropriate mood and affect HEENT: NC/AT CV: RRR Resp: Breath sounds clear bilaterally, no increased effort of breathing Abdomen: Soft, nontender, nondistended Extremities: No edema in lower extremities bilaterally. Updated Medication List Medication Instructions Recorded Confirmed Type blood sugar diagnostic ([employer]Touch #50 ea 04/14/22 01/31/24 Rx Ultra Test strips) blood-glucose meter ([employer]Touch #1 ea 04/14/22 01/31/24 Rx Ultra2 Meter) lancets 33 gauge (OneTouch Delica #100 ea 04/14/22 01/31/24 Rx Lancets) acetaminophen 325 mg capsule 325 mg PO Q6H PRN fever or pain 05/12/22 08/01/24 Rx (Tylenol) #30 caps metoprolol tartrate 25 mg tablet 25 mg PO BID #60 tabs 05/12/22 08/01/24 Rx potassium chloride 20 mEq 20 meq PO QAM #30 tabs 05/12/22 08/01/24 Rx tablet,extended release(part/cryst) melatonin 5 mg tablet 5 mg PO HS 07/03/22 08/01/24 History metformin 500 mg tablet,extended 500 mg PO DAILY 07/03/22 08/01/24 History release 24 hr multivitamin 1 tab PO DAILY 07/03/22 08/01/24 History nystatin 100,000 unit/gram topical 1 applic topical BID PRN Rash 07/03/22 08/01/24 History powder Saccharomyces boulardii 250 mg 250 mg PO DAILY #30 caps 07/16/22 08/01/24 Rx capsule (Florastor) furosemide 20 mg tablet (Lasix) 20 mg PO QAM 01/04/23 08/01/24 History semaglutide 2 mg/dose (8 mg/3 mL) 2 mg subcut WK 08/01/24 08/01/24 History subcutaneous pen injector (Ozempic) spironolactone 50 mg tablet 50 mg PO QAM 08/01/24 08/01/24 History cefdinir 300 mg capsule 300 mg PO BID #14 caps 08/03/24 Rx Hospital Stay Data Consultations 08/01/24 10:03 ED Decision to Admit Stat Diagnostic Imagining Performed 08/01/24 16:48 CT head/brain wo con Routine Chest X-Ray 08/01/24 10:53 XR chest 1V portable CLINICAL HISTORY: admission COMPARISON STUDY: 07/16/2022 FINDINGS: Stable mild cardiomegaly without pulmonary vascular congestion. No effusion, consolidation, or pneumothorax. IMPRESSION: No acute findings. ACT 112: Negative or not required by law. Electronically signed by: Daren Oliva M.D. 08/01/2024 11:[address] 08/01/24 16:48 Clinical History: Confusion Comparison is made to the prior CT dated 04/04/2022 Technique: Axial computed tomography images were obtained of the brain without intravenous contrast. Findings: There is mild cerebral atrophy, within expected limits for the patient's age. Areas of decreased attenuation are seen within the periventricular white matter, likely representing chronic small vessel ischemic disease. There is no definite sign of acute or old infarction. No intracranial hemorrhage is evident. No definite mass lesion is seen on this noncontrast examination. There is no midline shift or other form of herniation. No hydrocephalus is seen. No fracture is identified. The orbits and the visualized paranasal sinuses appear unremarkable. The mastoid air cells appear clear. Impression: 1. Cerebral atrophy and chronic small vessel ischemic disease 2. Otherwise unremarkable noncontrast CT of the brain Electronically signed by Felice Peres 08-01-2024 6:17 PM Discharge Instructions Given to Patient (Per Discharging Provider) Phyllis, You were treated for acute confusion in the setting of low sodium levels and a urinary tract infection. Your sodium levels are now in an acceptable range. Your case was discussed with the kidney doctor here. They advised that you continue with your diuretics at home but you should not drink excessive amounts of water. You will need close follow up with a kidney doctor. Our office will set that up for you as an outpatient. However, again we would recommend you limit your excessive water intake at home. Please do not take your home potassium supplements until you follow up with your primary care provider Dr Castro on the . Your potassium is on the higher end and with your use of spironolactone that can make your potassium high as well. You will need blood work at that time (at your pcp visit) to determine if that can be re-started. Please continue with the antibiotics prescribed for another 7 days for your urinary tract infection. Take it with your probiotic you have at home. Again, please keep close follow up with your primary care provider after discharge. Please do not hesitate to come back to the emergency room if your symptoms worsen or return. It was a pleasure taking care of you while you were here. Total Time Total Time Spent Total Time Spent (In Minutes): 60
[2024-08-03 15:16] VITALS: PULSE 91
== END 2024-08-03 15:45 | disposition home or self-care (01) | DRG 698 ==
LOC: ED 04:48 → EDINP 10:10 → SUATTDRO 10:10 → EDINP 11:11 → 2S 17:31

== ENCOUNTER 2024-10-01 08:33 | Inpatient (IN) ==
--- NOTE | 2024-10-01 08:55 | Emergency Department Note ---
Impression & Plan Acute hyponatremia, Generalized weakness, Nausea ED Provider Note NAME: CARLOS GALDAMEZ AGE: 64 SEX: F : 1960 ARRIVES VIA: Walk-In INFORMANT: Patient ED PROVIDER(S): Kingston Maharaj DO CHIEF COMPLAINT: Nausea HPI: Patient is a 64-year-old female with a past medical history of chronic osteomyelitis, UTI, hyponatremia, diverticulitis who presents to the ER for nausea. is present at bedside and provides additional history and notes that symptoms have been present for the past 2 weeks. Last night she was here for Lozano issues. She was struggling at home. He notes she has been slightly more confused than usual. No vomiting. Denies any headache or change in vision. No chest pain or shortness of breath. No other exacerbating or remitting factors. ADDITIONAL HISTORY OBTAINED: notes that she came back in currently for nausea which does not appear to be change from how she has been feeling for the past several days. Chronic Medical/Social Conditions Affecting Care: Per HPI PAST MEDICAL HISTORY:See Below PAST SURGICAL HISTORY:See Below FAMILY HISTORY:See Below SOCIAL HISTORY:See Below HOME MEDICATIONS:See Below ALLERGIES:See Below VITALS:See Below PHYSICAL EXAMINATION: GENERAL: Sitting up in bed, alert, well appearing, well nourished, no distress, non-toxic EYE EXAM: normal conjunctiva. OROPHARYNX: no exudate, no erythema, lips, buccal mucosa, and tongue normal and mucous membranes are moist NECK: supple, no nuchal rigidity, no adenopathy, non-tender LUNGS: Clear to auscultation. Normal chest wall mechanics HEART: no murmurs, S1 normal and S2 normal ABDOMEN: abdomen soft, non-tender, normo-active bowel sounds, no masses, no rebound or guarding. UPPER EXTREMITIES: upper extremities are grossly normal. LOWER EXTREMITIES: No pitting edema. NEURO EXAM: Normal sensorium, cranial nerves II-XII grossly intact, normal speech, no gross weakness of arms, no gross weakness of legs. MEDICAL DECISION MAKING: Patient is a 64-year-old female who presents to the ER for her fifth visit in the past month. Patient was just seen here earlier today following excellently causing a Lozano issue. IV was established and blood work was obtained. She Jhon presents today per for nausea. IV was established and blood work was obtained. Labs show no significant leukocytosis or anemia. BMP with a hyponatremia at 125 down from baseline of 131. LFTs and bilirubin were unremarkable. Lipase was normal. She has no belly pain on exam. notes that she is slightly more confused than her baseline/more forgetful which has been getting worse over the past several weeks to months. CT head was obtained and unremarkable. Patient was updated at bedside. Patient was given IV fluids and Zofran. She was discussed with the hospitalist for further evaluation management treatment. Consults/Care Managements Discussions: Per [facility] Triage Nursing notes reviewed. Limited review of prior medical records performed Vital Signs: reviewed and remarkable for no significant abnormalities Differential diagnosis: Differential diagnoses includes but is not limited to gastritis, peptic ulcer disease, GERD, gallbladder disease, pancreatitis, small bowel obstruction, appendicitis, diverticulitis, hernia, urinary tract infection, torsion, perforation, trauma, infectious. ER treatment provided: See below Diagnostics interpreted by me include EKG and cardiac monitoring as listed below: -Cardiac Monitoring: An order was placed for continuous cardiac monitoring. The monitor shows a rate of 90 with sinus rhythm. -ECG: none -Laboratory studies:Interpreted by me as stated above in MDM and shown below. Imaging studies: Xrays: As interpreted by me:none CTs show: CT of the head per my preliminary interpretation shows no acute pathology Procedures:none Critical Care: None Past Med/Surg History Problem List (Updated 10/01/24 @ 12:44 by Kingston Maharaj DO) Nausea (Acute) Acute hyponatremia (Acute) Lozano catheter problem (Acute) Nausea (Acute) Abdominal pain (Acute) Urinary tract infection (Acute) Chronic osteomyelitis Lozano catheter present (Acute) Hyponatremia (Acute) Complicated UTI (urinary tract infection) (Acute) Acute metabolic encephalopathy Hyponatremia Wound of left ankle Aortic valve endocarditis Stage III pressure ulcer of left ankle (Acute) 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 Hx of transesophageal echocardiography (JILLIAN) for monitoring Lozano catheter in place Surgical History History of cataract surgery History of esophagogastroduodenoscopy (EGD) History of ankle surgery lt ankle arthotomy with I&D Hx of arthroscopy of left knee Hx of tooth extraction has dentures Family History Other Family history non-contributory Social History Smoking Status: Never smoker Second Hand Exposure: Yes (hx- used to smoke); Do You Dip or Chew Tobacco: No; Hx Alcohol Use: No Hx Substance Use: No Preferred Language: Welsh Communication Ability: Effective Visual Impairment: No Limitations Boat Hand Required: No Beliefs That Will Affect Care: None marital status: Current Living Situation: Spouse Current Living Situation Comment: one story set up, 1 step to enter How many Children do You have: 1 Feels Safe at Home: Yes Assistive Devices: Cane and Walker Allergies Allergies Allergy/AdvReac Type Severity Reaction Status Date / Time No Known Allergies Allergy Verified 09/30/24 11:03 Home Meds Home Medications Medication Instructions Recorded Confirmed melatonin 5 mg tablet 5 mg PO HS 07/03/22 10/01/24 nystatin 100,000 unit/gram topical 1 applic topical BID PRN Rash 07/03/22 10/01/24 powder furosemide 20 mg tablet (Lasix) 20 mg PO QAM 01/04/23 10/01/24 semaglutide 2 mg/dose (8 mg/3 mL) 2 mg subcut WK 08/01/24 10/01/24 subcutaneous pen injector (Ozempic) spironolactone 50 mg tablet 50 mg PO QAM 08/01/24 10/01/24 acetaminophen 325 mg tablet 325 - 650 mg PO QID PRN PAIN/FEVER 09/04/24 10/01/24 (Tylenol) loperamide 2 mg capsule 2 mg PO QID PRN Diarrhea 09/04/24 10/01/24 pooxcont-fit-tnswm ac 400 1 tab PO DAILY 09/04/24 10/01/24 mcg-calcium carb 500 mg-vit K1 20 mcg tablet (Women's 50 Plus Multivitamin) polyvinyl alcohol 1.4 % eye drops 1 drp ophthalmic (eye) DIRECTED 09/04/24 10/01/24 (Artificial Tears (polyvinyl PRN Dry Eyes alcohol)) Previous Rx's Medication Instructions Recorded blood sugar diagnostic ([email or web address] #50 ea 04/14/22 Ultra Test strips) blood-glucose meter ([email or web address] #1 ea 04/14/22 Ultra2 Meter) lancets 33 gauge ([email or web address] Delica #100 ea 04/14/22 Lancets) metoprolol tartrate 25 mg tablet 25 mg PO BID #60 tabs 05/12/22 ondansetron HCl 4 mg tablet 4 mg PO Q8H PRN nausea and 09/30/24 vomiting #15 tabs Results & Data (ED) Vital Signs Vital Signs - 24 hr 10/01/24 08:39 10/01/24 09:28 10/01/24 09:33 Temperature 36.7 C Temperature Source Temporal Artery Scan Pulse Rate 97 H 94 H Pulse Rate [Apical] 91 H Pulse Rhythm [Apical] Regular Pulse Strength [Apical] Normal Respiratory Rate 14 14 Respiratory Effort / Characteristics Non-Labored Spontaneous Respiratory Depth Normal Respiratory Pattern Regular Blood Pressure 120/79 Blood Pressure [Right Arm] 135/80 Blood Pressure Mean 92 Blood Pressure Mean [Right Arm] 98 Blood Pressure Position [Right Arm] Pulse Oximetry 95 97 Oxygen Delivery Method Room Air Room Air Sepsis New/Unexplained Change in Mental Status No Sepsis Action Taken by Nursing No Action Required 10/01/24 09:33 10/01/24 12:00 10/01/24 12:38 Temperature Temperature Source Pulse Rate Pulse Rate [Apical] 97 H 93 H Pulse Rhythm [Apical] Pulse Strength [Apical] Respiratory Rate 20 16 Respiratory Effort / Characteristics Non-Labored Spontaneous Respiratory Depth Normal Respiratory Pattern Blood Pressure Blood Pressure [Right Arm] 111/76 115/76 Blood Pressure Mean Blood Pressure Mean [Right Arm] 87 89 Blood Pressure Position [Right Arm] Semi-fowlers Pulse Oximetry 97 98 Oxygen Delivery Method Room Air Room Air Room Air Sepsis New/Unexplained Change in Mental Status Sepsis Action Taken by Nursing Laboratory Data 10/01/24 09:15 10/01/24 09:15 Lab Results 10/01/24 Range/Units 09:15 WBC 8.01 (4.8-10.8) K/ul RBC 4.09 L (4.20-5.40) M/uL Hgb 12.4 (12.0-16.0) g/dl Hct 33.8 L (37.0-47.0) % MCV 82.6 (80.0-100.0) fL MCH 30.3 (25.0-34.0) pg MCHC 36.7 H (32.0-36.0) g/dL RDW Std Deviation 37.6 (36.4-46.3) fL RDW Coeff of Chintan 12.4 (11.5-14.5) % Plt Count 187 (130-400) K/uL MPV 9.8 (9.4-12.4) fL Immature Gran % (Auto) 0.4 % Neut % (Auto) 67.1 % Lymph % (Auto) 25.0 % Lea % (Auto) 6.1 % Eos % (Auto) 0.9 % Baso % (Auto) 0.5 % Neut # (Auto) 5.38 (1.40-6.50) K/uL Lymph # (Auto) 2.00 (1.20-3.40) K/uL Lea # (Auto) 0.49 (0.11-0.59) K/uL Eos # (Auto) 0.07 (0.00-0.50) K/uL Baso # (Auto) 0.04 (0.00-0.20) K/uL Immature Gran # (Auto) 0.03 (0.01-0.20) K/uL Sodium 125 L (136-145) mmol/L Potassium 3.6 (3.5-5.1) mmol/L Chloride 93 L (98-107) mmol/L Carbon Dioxide 23 (21-32) mmol/L Anion Gap 9 (3-11) BUN 13 (6-23) mg/dl Creatinine 1.02 (0.6-1.2) mg/dl Est Cr Clr Drug Dosing Not Reportable eGFR 61.43 BUN/Creatinine Ratio 12.7 (10-20) Glucose 81 (70-99(Fasting)) mg/dl Calcium 9.0 (8.6-10.3) mg/dl Total Bilirubin 1.1 H (0.2-1.0) mg/dl AST 24 (13-39) U/L ALT 11 (7-52) U/L Alkaline Phosphatase 73 (34-104) U/L Total Protein 6.9 (6.0-8.3) gm/dl Albumin 3.7 (3.4-5.0) gm/dl Globulin 3.2 (2.5-4.0) gm/dl Albumin/Globulin Ratio 1.2 (0.9-2) Lipase 18 (11-82) U/L Administered Medications Discontinued Medications Sodium Chloride (Nss) 1,000 mls @ 999 mls/hr IV .Q1H1M ONE Stop: 10/01/24 09:51 Last Infusion: 10/01/24 11:33 Dose: Infused Documented By: Admin: 10/01/24 09:32 Dose: 999 mls/hr Documented By: GOLD Metoprolol Tartrate (Metoprolol Tartrate 25 Mg Tab) 25 mg PO NOW STA Stop: 10/01/24 11:43 Last Admin: 10/01/24 12:14 Dose: 25 mg Documented By: SUZI Ondansetron HCl (Ondansetron Inj 2 Mg/Ml 2 Ml Vial) 4 mg IV NOW STA Stop: 10/01/24 08:52 Last Admin: 10/01/24 09:32 Dose: 4 mg Documented By: GOLD Imaging Data Radiologist's Impression: Head CT 10/01/24 08:51 CT head/brain wo con CLINICAL HISTORY: child. TECHNIQUE: Multiple axial CT images of the head were obtained without contrast. A dose lowering technique was utilized adhering to the principles of ALARA. CT DOSE: 625.8 mGy.cm COMPARISON: 08/01/2024 FINDINGS: There is mild motion artifact. No intracranial hemorrhage seen. No mass effect, midline shift, or hydrocephalus. No skull fracture seen. Visualized paranasal sinuses and mastoid air cells are clear. Stable mild chronic small vessel ischemic changes. IMPRESSION: No acute findings. ACT 112: Negative or not required by law. The above report was generated using voice recognition software. It may contain grammatical, syntax or spelling errors. Electronically signed by: Daren Oliva M.D. 10/01/2024 9:14 AM Discharge Plan Visit Data Chief Complaint: Abdominal Pain Stated Complaint: ABD PAIN, DIVERTICULITIS ED Provider: Kingston Maharaj Discharge Problem: Acute hyponatremia, Generalized weakness, Nausea Patient Disposition: Admitted As Inpatient Condition: Fair Forms Stand Alone Forms: [facility] [employer] Prescriptions Prescriptions: No Action (DME) blood-glucose meter [OneTouch Ultra2 Meter[place] [facility] [place] Instructions .Route Qty: 1 0RF Rx Instructions: As directed (DME) OneTouch Ultra Test Strip See Rx Instructions .Route Qty: 50 0RF Rx Instructions: As directed for glucose monitoring once daily (DME) lancets [OneTouch Delica Lancets] 33 gauge misc See Rx Instructions .Route Qty: 100 0RF Rx Instructions: As directed for once daily glucose monitoring metoprolol tartrate 25 mg Tablet 25 mg PO BID Qty: 60 0RF nystatin 100,000 unit/gram powder 1 applic TOPICAL BID PRN (Reason: Rash) melatonin 5 mg Tablet 5 mg PO HS furosemide [Lasix] 20 mg tablet 20 mg PO QAM spironolactone 50 mg tablet 50 mg PO QAM Ozempic 2 mg/dose (8 mg/3 mL) pen injector 2 mg subcut WK Rx Instructions: Tuesday acetaminophen [Tylenol] 325 mg Tablet 325 - 650 mg PO QID PRN (Reason: PAIN/FEVER) loperamide [Imodium] 2 mg Capsule 2 mg PO QID PRN (Reason: Diarrhea) polyvinyl alcohol [Artificial Tears (polyvin alc)] 1.4 % Drops 1 drp OPHTHALMIC (EYE) DIRECTED PRN (Reason: Dry Eyes) Women's 50 Plus Multivitamin 400 mcg-500 mg calcium-20 mcg Tablet 1 tab PO DAILY ondansetron HCl 4 mg tablet 4 mg PO Q8H PRN (Reason: nausea and vomiting) Qty: 15 0RF Referrals Referrals: Christopher Castro MD [Primary Care Provider] -
--- NOTE | 2024-10-01 09:15 | CT Scan Report ---
CT head/brain wo con CLINICAL HISTORY: child. TECHNIQUE: Multiple axial CT images of the head were obtained without contrast. A dose lowering tech nique was utilized adhering to the principles of ALARA. CT DOSE: 625.8 mGy.cm COMPARISON: 08/01/2024 FINDINGS: There is mild motion artifact. No intracranial hemorrhage seen. No mass effect, midline liset ft, or hydrocephalus. No skull fracture seen. Visualized paranasal sinuses and mastoid air cells are clear. Stable mild chronic small vessel ischemic changes. IMPRESSION: No acute findings. ACT 112: Negative or not required by law. The above report was generated using voice recognition software. It may contain grammatical, syntax o r spelling errors. Electronically signed by: Daren Oliva M.D. 10/01/2024 9:14 AM
[2024-10-01] MEDS: ONDANSETRON INJ 2 MG/ML 2 ML VIAL IV STA (09:32)
[2024-10-01] MEDS: SODIUM CHLORIDE 0.9% 1,000 ML IV ONE (09:32)
[2024-10-01 09:53] LABS: Basophils # (auto) 0.04 K/uL (0.00-0.20); Basophils % (auto) 0.5 %; Eosinophils # (auto) 0.07 K/uL (0.00-0.50); Eosinophils % (auto) 0.9 %; Hematocrit (blood only) 33.8 % (37.0-47.0); Hemoglobin 12.4 g/dl (12.0-16.0); Immature Granulocytes # (auto) 0.03 K/uL (0.01-0.20); Immature Granulocytes % (auto) 0.4 %; Mean Corpuscular Hemoglobin 30.3 pg (25.0-34.0); Mean Corpuscular Hgb Conc 36.7 g/dL (32.0-36.0); Mean Corpuscular Volume 82.6 fL (80.0-100.0); Mean Platelet Volume 9.8 fL (9.4-12.4); Monocytes # (auto) 0.49 K/uL (0.11-0.59); Monocytes % (auto) 6.1 %; Neutrophils # (auto) 5.38 K/uL (1.40-6.50); Neutrophils % (auto) 67.1 %; Platelet Count 187 K/uL (130-400); RDW Coefficient of Variation 12.4 % (11.5-14.5); RDW Standard Deviation 37.6 fL (36.4-46.3); Red Blood Count 4.09 M/uL (4.20-5.40); White Blood Count 8.01 K/ul (4.8-10.8)
[2024-10-01 10:23] LABS: Alanine Aminotransferase 11 U/L (7-52); Albumin Globulin Ratio 1.2 (0.9-2); Albumin Level 3.7 gm/dl (3.4-5.0); Alkaline Phosphatase 73 U/L (34-104); Anion Gap 9 (3-11); Aspartate Aminotransferase 24 U/L (13-39); BUN Creatinine Ratio 12.7 (10-20); Bilirubin,Total 1.1 mg/dl (0.2-1.0); Blood Urea Nitrogen 13 mg/dl (6-23); Carbon Dioxide 23 mmol/L (21-32); Chloride 93 mmol/L (98-107); Globulin 3.2 gm/dl (2.5-4.0); Glucose 81 mg/dl (70-99(Fasting)); Lipase 18 U/L (11-82); Potassium 3.6 mmol/L (3.5-5.1); Sodium 125 mmol/L (136-145); Total Protein 6.9 gm/dl (6.0-8.3)
--- NOTE | 2024-10-01 11:29 | History & Physical Report ---
Date of Service October 01, 2024 Assessment & Plan (1) Acute metabolic encephalopathy: (2) Urinary tract infection: (3) Nausea: (4) Hyponatremia: (5) Chronic osteomyelitis: Plan This is a 64 yr old F who has a significant PMH of T2DM, Chronic Diastolic CHF, Cirrhosis, Aortic Valve Stenosis, Hereditary hemochromatosis, CKD-3, Chronic L sided sacral decub with chronic osteomyelitis who presents to ED 2/2 Nausea. #Catheter associated UTI, POA #Chronic indwelling gandara - 2/2 chronic sacral decub #Metabolic encephalopathy specimen from 09/30 growing e. coli gandara cath exchange ordered started on empiric IV rocephin, await culture #Acute/Chronic Hyponatremia #Nausea pt reports 3 weeks of nausea last sodium level in [facility] 07/2024 was WNL, but MN shows ranging 130s she reports drinking 6 16oz bottles of water daily obtain urine osm, urine sodium, serum osm will FR to 1800ml, repeat sodium level at 20:00 continue lasix/aldactone for now, does not appear overloaded on exam #Chronic Diastolic CHF #Cirrhosis appears compensated on exam obtain NH3 as reports confusion, but could be from UTI no agustín encephalopathy on exam continue lasix, aldactone daily weights #Chronic Osteomyelitis #Stage 3 pressure ulcer of Left buttock, POA no reports of concerning drainage or pain follows with [facility] wound monthly, daughter helps with dressing last seen 09/05 in [place] dressings are dry dressings with iodoform packing 2 inches strip gauze buttock wound changed daily plastics planning flap reconstruction and bone biopsy #T2DM last a1c 4.5 in july previously on metformin, now only on ozempic, but she hasn't taken it recently due to nausea she reports being on ozempic for weight loss DVT ppx: SQ Lovenox FULL CODE PCP: Gloria Dispo: admit to medical, suspect able to d/c once sodium stabilizes and nausea improves Pt was seen and examined in collaboration with Dr. Mendez, please see addendum I spent a total of 60 minutes coordinating, documenting and providing care for this patient excluding time spent in the performance of separately billed se rvices or time spent by another provider/QHP. History of Present Illness Chief Complaint: Nausea x 3 weeks. Primary Care Provider: Christopher Castro MD This is a 64 yr old F who has a significant PMH of T2DM, Chronic Diastolic CHF, Cirrhosis, Aortic Valve Stenosis, Hereditary hemochromatosis, CKD-3, Chronic L sided sacral decub with chronic osteomyelitis who presents to ED 2/2 Nausea. Her is at bedside who also helps elicit history. She reports nausea for 3 weeks. She denies any vomiting. She was dx with diverticulitis 3 weeks ago. She completed a course of cipro/flagyl. She was treated for 10 days. She also started an antibiotic last night for diverticulitis and it was prescribed in the ED. She denies any abdominal pain, diarrhea, melena, hematochezia, f/c/s, chest pain, sob, dysuria with catheter, blood in urine, lightheaded or dizzy. She has been drinking water. She drinks 6 bottles of 16oz armenta daily. She has a catheter and drinks more water because of it. She changes it monthly. It is due to be exchanged on . at bedside feels she is more confused/forgetful. Pt was seen in ED overnight due to concern for possible catheter issue, but everything was unremarkable. Allergies Allergy/AdvReac Type Severity Reaction Status Date / Time No Known Allergies Allergy Verified 09/30/24 11:03 Home Medications Medication Instructions Recorded Confirmed Type blood sugar diagnostic ([employer]Touch #50 ea 04/14/22 10/01/24 Rx Ultra Test strips) blood-glucose meter ([employer]Touch #1 ea 04/14/22 10/01/24 Rx Ultra2 Meter) lancets 33 gauge (OneTouch Delica #100 ea 04/14/22 10/01/24 Rx Lancets) metoprolol tartrate 25 mg tablet 25 mg PO BID #60 tabs 05/12/22 10/01/24 Rx melatonin 5 mg tablet 5 mg PO HS 07/03/22 10/01/24 History nystatin 100,000 unit/gram topical 1 applic topical BID PRN Rash 07/03/22 10/01/24 History powder furosemide 20 mg tablet (Lasix) 20 mg PO QAM 01/04/23 10/01/24 History semaglutide 2 mg/dose (8 mg/3 mL) 2 mg subcut WK 08/01/24 10/01/24 History subcutaneous pen injector (Ozempic) spironolactone 50 mg tablet 50 mg PO QAM 08/01/24 10/01/24 History acetaminophen 325 mg tablet 325 - 650 mg PO QID PRN PAIN/FEVER 09/04/24 10/01/24 History (Tylenol) loperamide 2 mg capsule 2 mg PO QID PRN Diarrhea 09/04/24 10/01/24 History zzdffizt-bjf-hjivl ac 400 1 tab PO DAILY 09/04/24 10/01/24 History mcg-calcium carb 500 mg-vit K1 20 mcg tablet (Women's 50 Plus Multivitamin) polyvinyl alcohol 1.4 % eye drops 1 drp ophthalmic (eye) DIRECTED 09/04/24 10/01/24 History (Artificial Tears (polyvinyl PRN Dry Eyes alcohol)) ondansetron HCl 4 mg tablet 4 mg PO Q8H PRN nausea and 09/30/24 10/01/24 Rx vomiting #15 tabs Past Med/Surg History Problem List (Updated 10/01/24 @ 12:44 by Kingston Maharaj DO) Nausea (Acute) Acute hyponatremia (Acute) Gandara catheter problem (Acute) Nausea (Acute) Abdominal pain (Acute) Urinary tract infection (Acute) Chronic osteomyelitis Gandara catheter present (Acute) Hyponatremia (Acute) Complicated UTI (urinary tract infection) (Acute) Acute metabolic encephalopathy Hyponatremia Wound of left ankle Aortic valve endocarditis Stage III pressure ulcer of left ankle (Acute) 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 Hx of transesophageal echocardiography (JILLIAN) for monitoring Gandara catheter in place Surgical History History of cataract surgery History of esophagogastroduodenoscopy (EGD) History of ankle surgery lt ankle arthotomy with I&D Hx of arthroscopy of left knee Hx of tooth extraction has dentures Family History Other Family history non-contributory Social History Smoking Status: Never smoker Second Hand Exposure: Yes (hx- used to smoke); Do You Dip or Chew Tobacco: No; Hx Alcohol Use: No Hx Substance Use: No Preferred Language: Slovak Communication Ability: Effective Visual Impairment: No Limitations Splitter Head Required: No Beliefs That Will Affect Care: None marital status: Current Living Situation: Spouse Current Living Situation Comment: one story set up, 1 step to enter How many Children do You have: 1 Feels Safe at Home: Yes Safety Concerns: Feels Safe At This Time Assistive Devices: Cane, Denture - Upper, Denture - Lower and Walker Review of Systems Review of Systems: All systems reviewed & are unremarkable except as noted in HPI & below Physical Exam Physical Exam: please refer to Dr. Mendez addendum for physical exam findings. Results & Data Results & Data Vital Signs (Past 12 Hours) Vital Signs Temp Pulse Pulse Resp BP BP Pulse Ox 10/01/24 09:33 10/01/24 09:33 91 H 14 135/80 97 10/01/24 09:28 94 H 10/01/24 08:39 36.7 C 97 H 14 120/79 95 O2 Del Method 10/01/24 09:33 Room Air 10/01/24 09:33 Room Air 10/01/24 09:28 10/01/24 08:39 Room Air Laboratory Results I have independently reviewed and interpreted patient's admitting labs including CBC, CMP,lipase Diagnostic Findings Head CT 10/01/24 08:51 CT head/brain wo con CLINICAL HISTORY: child. TECHNIQUE: Multiple axial CT images of the head were obtained without contrast. A dose lowering technique was utilized adhering to the principles of ALARA. CT DOSE: 625.8 mGy.cm COMPARISON: 08/01/2024 FINDINGS: There is mild motion artifact. No intracranial hemorrhage seen. No mass effect, midline shift, or hydrocephalus. No skull fracture seen. Visualized paranasal sinuses and mastoid air cells are clear. Stable mild chronic small vessel ischemic changes. IMPRESSION: No acute findings. ACT 112: Negative or not required by law. The above report was generated using voice recognition software. It may contain grammatical, syntax or spelling errors. Electronically signed by: Daren Oliva M.D. 10/01/2024 9:14 AM Medications Administered Medication List Discontinued Medications Sodium Chloride (Nss) 1,000 mls @ 999 mls/hr IV .Q1H1M ONE Stop: 10/01/24 09:51 Last Infusion: 10/01/24 11:33 Dose: Infused Documented By: Admin: 10/01/24 09:32 Dose: 999 mls/hr Documented By: GOLD Ondansetron HCl (Ondansetron Inj 2 Mg/Ml 2 Ml Vial) 4 mg IV NOW STA Stop: 10/01/24 08:52 Last Admin: 10/01/24 09:32 Dose: 4 mg Documented By: GOLD ECG Additional Comments: I have independently reviewed and interpreted patient's admitting EKG which revealed: 94 NSR, LAFB no st or t wave changes, this is from 09/30 COVID-19 Results Results COVID-19 Adm Lab Results: RBC 4.09 M/uL (4.20-5.40) L 10/01/24 WBC 8.01 K/ul (4.8-10.8) 10/01/24 Hgb 12.4 g/dl (12.0-16.0) 10/01/24 Hct 33.8 % (37.0-47.0) L 10/01/24 Plt Count 187 K/uL (130-400) 10/01/24 Neutrophils (%) (Auto) 67.1 % 10/01/24 Lymphocytes (%) (Auto) 25.0 % 10/01/24 Monocytes # (Auto) 0.49 K/uL (0.11-0.59) 10/01/24 Eosinophils # (Auto) 0.07 K/uL (0.00-0.50) 10/01/24 Immature Granulocyte % (Auto) 0.4 % 10/01/24 Neutrophils # (Auto) 5.38 K/uL (1.40-6.50) 10/01/24 Lymphocytes # (Auto) 2.00 K/uL (1.20-3.40) 10/01/24 Monocytes # (Auto) 0.49 K/uL (0.11-0.59) 10/01/24 Eosinophils # (Auto) 0.07 K/uL (0.00-0.50) 10/01/24 Basophils # (Auto) 0.04 K/uL (0.00-0.20) 10/01/24 Immature Granulocyte # (Auto) 0.03 K/uL (0.01-0.20) 5 Na 125 mmol/L (136-145) L 10/01/24 K 3.6 mmol/L (3.5-5.1) 10/01/24 Cl 93 mmol/L (98-107) L 10/01/24 CO2 23 mmol/L (21-32) 10/01/24 Anion Gap 9 (3-11) 10/01/24 BUN 13 mg/dl (6-23) 10/01/24 Creatinine 1.02 mg/dl (0.6-1.2) 10/01/24 BUN/Creatinine Ratio 12.7 (10-20) 10/01/24 Glucose Level 81 mg/dl (70-99(Fasting)) 10/01/24 Ca 9.0 mg/dl (8.6-10.3) 10/01/24 Total Bilirubin 1.1 mg/dl (0.2-1.0) H 10/01/24 AST/SGOT 24 U/L (13-39) 10/01/24 ALT/SGPT 11 U/L (7-52) 10/01/24 Alkaline Phosphatase 73 U/L (34-104) 10/01/24 Total Protein 6.9 gm/dl (6.0-8.3) 10/01/24 Albumin 3.7 gm/dl (3.4-5.0) 10/01/24 Globulin 3.2 gm/dl (2.5-4.0) 10/01/24 Albumin/Globulin Ratio 1.2 (0.9-2) 10/01/24 Code Status & VTE Plan Code Status FULL CODE VTE Prophylaxis Plan VTE Prophylaxis will be ordered: Yes Supervising Physician Co-Signing Physician Notes Patient is a 64-year-old female with history of diabetes mellitus currently only on Ozempic, GALICIA cirrhosis, diastolic heart failure, hereditary hemochromatosis, CKD, chronic sacral decubitus ulcer and other medical problems presents with history of nausea and and some forgetfulness. She was recently treated for diverticulitis and completed a course of Cipro, Flagyl for 10-day duration. She has been having nausea for the past 3 weeks. She admits to drinking about 3 L of water per day. She denies any vomiting, diarrhea, abdominal pain, chest pain, dyspnea, fever, chills, dysuria, hematuria. She states that her Gandara catheter is due to be changed this . Please review HPI for complete details of presentation. Currently she is oriented while in ED. I personally reviewed blood work and imaging studies. Noted hyponatremia with sodium 125, chloride 93, total bilirubin 1.1, normal LFTs, alkaline phosphatase. UA suggestive of possible UTI. Urine culture from 09/30/[address] head, chest x-ray showed no acute process. KUB showed no acute findings. Physical Exam: Vitals signs as noted above General Appearance: Obese, no apparent distress Head: normocephalic, Atraumatic Eyes: normal inspection, EOMI Neck: supple, Trachea midline Respiratory/Chest: Normal breath sounds, CTA, No accessory muscle use Cardiovascular: S1, S2, +murmur Abdomen/GI:Soft, Non tender, Bowel sounds present + Gandara Extremities/Musculoskeletal:normal inspection, no edema Neurologic/Psych:AAOX3, grossly no focal neurological deficits Skin: normal color, warm,+ sacral decubitus Acute on chronic hyponatremia Likely multifactorial secondary to increased oral fluid intake, nausea leading to component of SIADH, on chronic diuretic and poor oral intake Complicated Urinary tract infection related to catheter Acute metabolic encephalopathy secondary to above Requested to exchange Gandara catheter Empirically started on Rocephin Urine culture growing E. coli, sensitivities pending Antiemetics as needed Will repeat KUB tmw to assess for possible ileus Monitor sodium levels closely Urine, serum osmolality, urine sodium pending Will check ammonia levels and consider lactulose if needed Placed on fluid restriction for now I personally interviewed and examined the patient at bedside. I have reviewed the advanced practitioner's documentation on the date of service referred in note and agree with plan. Patient's care is coordinated with Justyna Lopez PA-C. Please refer to the documentation above for details of patient's p resentation and for discussion of other issues. I spent a total [id number] coordinating, documenting, and providing care for this patient excluding time spent in the performance of separately billed services or time spent by another provider/QHP.
[2024-10-01] MEDS: METOPROLOL TARTRATE 25 MG TAB PO STA (12:14)
[2024-10-01] MEDS ORDERED: Patient's HEIGHT &/or WEIGHT Needed SCH (12:15)
[2024-10-01] MEDS: cefTRIAXone SODIUM 2,000 MG/50 ML BAG IV SCH (13:07)
[2024-10-01] MEDS ORDERED: MELATONIN 3 MG TAB PO PRN (13:09)
[2024-10-01] MEDS ORDERED: GLUCOSE 10 TAB/TUBE PO PRN (13:09)
[2024-10-01] MEDS ORDERED: ALUMINUM/MAGNESIUM SUSP 30 ML UDC PO PRN (13:09)
[2024-10-01] MEDS ORDERED: FAMOTIDINE 20 MG TAB PO PRN (13:09)
[2024-10-01] MEDS ORDERED: ACETAMINOPHEN 325 MG TAB PO PRN (13:09)
[2024-10-01] MEDS ORDERED: CARBOHYDRATES FOR HYPOGLYCEMIA PO PRN (13:09)
[2024-10-01] MEDS ORDERED: ONDANSETRON INJ 2 MG/ML 2 ML VIAL IV PRN (13:09)
[2024-10-01] MEDS ORDERED: GLUCOSE 40% GEL 15 GM TUBE PO PRN (13:09)
[2024-10-01] MEDS ORDERED: GLUCAGON FOR INJ 1 MG VIAL SQ PRN (13:09)
[2024-10-01] MEDS ORDERED: DEXTROSE 50% 50 ML SYRINGE IV PRN (13:09)
[2024-10-01] MEDS: MICONAZOLE NITRATE POWDER 85 GM EXT PRN (20:23)
[2024-10-01] MEDS: ENOXAPARIN INJ 40 MG/0.4 ML SYR SQ SCH (20:24)
[2024-10-01] MEDS: METOPROLOL TARTRATE 25 MG TAB PO SCH (20:25)
[2024-10-01 20:50] LABS: BUN Creatinine Ratio 12.9 (10-20); Calcium 8.4 mg/dl (8.6-10.3); Potassium 3.4 mmol/L (3.5-5.1)
[2024-10-02 06:10] LABS: Basophils # (auto) 0.06 K/uL (0.00-0.20); Eosinophils # (auto) 0.13 K/uL (0.00-0.50); Eosinophils % (auto) 2.3 %; Hematocrit (blood only) 34.2 % (37.0-47.0); Hemoglobin 12.3 g/dl (12.0-16.0); Immature Granulocytes # (auto) 0.01 K/uL (0.01-0.20); Immature Granulocytes % (auto) 0.2 %; Lymphocytes # (auto) 1.68 K/uL (1.20-3.40); Lymphocytes % (auto) 29.2 %; Mean Corpuscular Hemoglobin 30.4 pg (25.0-34.0); Mean Corpuscular Volume 84.7 fL (80.0-100.0); Mean Platelet Volume 9.4 fL (9.4-12.4); Monocytes # (auto) 0.39 K/uL (0.11-0.59); Monocytes % (auto) 6.8 %; Neutrophils # (auto) 3.49 K/uL (1.40-6.50); Neutrophils % (auto) 60.5 %; Platelet Count 183 K/uL (130-400); RDW Coefficient of Variation 12.9 % (11.5-14.5); RDW Standard Deviation 39.4 fL (36.4-46.3); Red Blood Count 4.04 M/uL (4.20-5.40); White Blood Count 5.76 K/ul (4.8-10.8)
[2024-10-02 06:53] LABS: Albumin Globulin Ratio 1.1 (0.9-2); Albumin Level 3.3 gm/dl (3.4-5.0); BUN Creatinine Ratio 14.1 (10-20); Bilirubin,Total 0.6 mg/dl (0.2-1.0); Calcium 8.6 mg/dl (8.6-10.3); Creatinine Clr Calc Pharmacy 70.4 ml/min; Globulin 3.1 gm/dl (2.5-4.0); Potassium 3.6 mmol/L (3.5-5.1); Total Protein 6.4 gm/dl (6.0-8.3)
[2024-10-02 07:16] VITALS: RESP 18; TEMP 98.2; O2SAT 96
[2024-10-02] MEDS: CEROVITE ADV FORMULA TAB PO SCH (09:08)
[2024-10-02] MEDS: FUROSEMIDE 20 MG TAB PO SCH (09:08)
[2024-10-02] MEDS: SPIRONOLACTONE 25 MG TAB PO SCH (09:08)
--- NOTE | 2024-10-02 09:56 | XRay Report ---
KUB HISTORY: r/o ileus COMPARISON STUDY: 09/30/2024 FINDINGS: There is moderate retained stool, most prominent at the right colon. There is retained cont rast in the colon. No bowel obstruction seen. No gross free air. IMPRESSION: No acute findings. ACT 112: Negative or not required by law. The above report was generated using voice recognition software. It may contain grammatical, syntax o r spelling errors. Electronically signed by: Daren Oliva M.D. 10/02/2024 9:55 AM
--- NOTE | 2024-10-02 11:20 | Discharge Summary ---
Discharge Summary Date of Service October 02, 2024 Principal Dx & Hospital Course #1 = Principal Diagnosis (1) Acute metabolic encephalopathy: (2) Urinary tract infection: (3) Nausea: (4) Hyponatremia: (5) Chronic osteomyelitis: Plan Patient 64-year-old female presented emergency room with acute confusion. Patient had outpatient urine culture that was growing E. coli. Patient was admitted to the hospital for presumed metabolic encephalopathy due to UTI. Was given some fluids and started on IV Rocephin. By the following day her mentation had returned to baseline. Her is at the bedside on the day of discharge and states that she is her usual self. Other vital signs have been stable. Her other medical issues have been stable. Ammonia level was less than 10 and there was no evidence of hepatic encephalopathy with her history of cirrhosis. Sensitivities on outpatient urine culture shows it to be pansensitive E. coli. She will be discharged home transition to oral Keflex for 3 more days continue outpatient medications follow-up with her PCP as scheduled. Notes For Next Care Provider Continue usual ongoing care Medication Changes From Visit Keflex for UTI Admission HPI Per Admitting Provider This is a 64 yr old F who has a significant PMH of T2DM, Chronic Diastolic CHF, Cirrhosis, Aortic Valve Stenosis, Hereditary hemochromatosis, CKD-3, Chronic L sided sacral decub with chronic osteomyelitis who presents to ED 2/2 Nausea. Her is at bedside who also helps elicit history. She reports nausea for 3 weeks. She denies any vomiting. She was dx with diverticulitis 3 weeks ago. She completed a course of cipro/flagyl. She was treated for 10 days. She also started an antibiotic last night for diverticulitis and it was prescribed in the ED. She denies any abdominal pain, diarrhea, melena, hematochezia, f/c/s, chest pain, sob, dysuria with catheter, blood in urine, lightheaded or dizzy. She has been drinking water. She drinks 6 bottles of 16oz armenta daily. She has a catheter and drinks more water because of it. She changes it monthly. It is due to be exchanged on . at bedside feels she is more confused/forgetful. Pt was seen in ED overnight due to concern for possible catheter issue, but everything was unremarkable. Admission Exam Per Admitting Provider See H&P Discharge Exam Constitutional: Alert, nontoxic, obese HEENT: Mucous membranes moist. Lungs: Clear to auscultation, decreased, no wheezes rales or rhonchi CV: S1-S2, regular Abdomen: Soft, nontender, nondistended Extremities: No significant edema Neuro: No focal deficits Psych: Cooperative, normal mood Updated Medication List Medication Instructions Recorded Confirmed Type blood sugar diagnostic ([employer] #50 ea 04/14/22 10/01/24 Rx Ultra Test strips) blood-glucose meter ([employer] #1 ea 04/14/22 10/01/24 Rx Ultra2 Meter) lancets 33 gauge ([employer] Delica #100 ea 04/14/22 10/01/24 Rx Lancets) metoprolol tartrate 25 mg tablet 25 mg PO BID #60 tabs 05/12/22 10/01/24 Rx melatonin 5 mg tablet 5 mg PO HS 07/03/22 10/01/24 History nystatin 100,000 unit/gram topical 1 applic topical BID PRN Rash 07/03/22 10/01/24 History powder furosemide 20 mg tablet (Lasix) 20 mg PO QAM 01/04/23 10/01/24 History semaglutide 2 mg/dose (8 mg/3 mL) 2 mg subcut WK 08/01/24 10/01/24 History subcutaneous pen injector (Ozempic) spironolactone 50 mg tablet 50 mg PO QAM 08/01/24 10/01/24 History acetaminophen 325 mg tablet 325 - 650 mg PO QID PRN PAIN/FEVER 09/04/24 10/01/24 History (Tylenol) loperamide 2 mg capsule 2 mg PO QID PRN Diarrhea 09/04/24 10/01/24 History aocwhxol-ezt-mazgh ac 400 1 tab PO DAILY 09/04/24 10/01/24 History mcg-calcium carb 500 mg-vit K1 20 mcg tablet (Women's 50 Plus Multivitamin) polyvinyl alcohol 1.4 % eye drops 1 drp ophthalmic (eye) DIRECTED 09/04/24 10/01/24 History (Artificial Tears (polyvinyl PRN Dry Eyes alcohol)) ondansetron HCl 4 mg tablet 4 mg PO Q8H PRN nausea and 09/30/24 10/01/24 Rx vomiting #15 tabs cephalexin 500 mg capsule 500 mg PO TID 3 days #9 caps 10/02/24 Rx Hospital Stay Data Consultations 10/01/24 10:41 ED Decision to Admit Stat Diagnostic Imagining Performed 10/01/24 08:51 CT head/brain wo con Stat Reviewed imaging, laboratory and diagnostic studies. Pertinent findings as below. WBCs 5.7 Hemoglobin 12.3 Platelets of 183 Sodium 137 Potassium 3.6 Creatinine 0.92 Ammonia less than 10 Serum osmolality 275 Urine osmolality 145 Urine sodium 13 Pending Results Patient Have Any Pending Studies at Discharge: No Discharge Instructions Given to Patient (Per Discharging Provider) Suspect all of your symptoms are related to the urinary tract infection Total Time Total Time Spent Total Time Spent (In Minutes): 25
[2024-10-02 12:11] VITALS: BP 114/73; PULSE 91
== END 2024-10-02 13:57 | disposition home or self-care (01) | DRG 698 ==
LOC: ED 08:33 → 4W 11:11 → SUATTDRO 11:11 → 4W 12:47